=== PATIENT | female | born 1965 | race Caucasian/White ===

== ENCOUNTER 2019-08-12 07:14 | Outpatient (RCR) | payer MEDICARE, MEDICAID, SELFPAY | END 2019-09-04 23:59 | disposition home or self-care (01) | LOC: PULRHB 07:14 | PROVIDERS: Family Provider Nurse Practitioner Family; PCP Nurse Practitioner Family; Visit Provider Internal Medicine Cardiovascular Disease | DX: J84.10 Pulmonary fibrosis, unspecified (principal) ==

== ENCOUNTER 2019-08-17 13:00 | Outpatient (CLI) | payer MEDICARE, MEDICAID, SELFPAY | END 2019-08-17 13:01 | disposition home or self-care (01) | LOC: RHEOACUTE 08-31 14:58 | PROVIDERS: Family Provider Nurse Practitioner Family; PCP Nurse Practitioner Family; Visit Provider Internal Medicine Rheumatology | DX: M05.79 Rheumatoid arthritis with rheumatoid factor of multiple sites without organ or systems involvement (principal) | CPT/HCPCS: 96365; J3262 ==

== ENCOUNTER 2019-08-17 17:21 | Outpatient (CLI) | payer MEDICARE, MEDICAID, SELFPAY | END 2019-08-17 17:22 | disposition home or self-care (01) | LOC: RHEOACUTE 17:22 | PROVIDERS: Family Provider Nurse Practitioner Family; PCP Nurse Practitioner Family; Visit Provider Internal Medicine Rheumatology | DX: Z76.89 Persons encountering health services in other specified circumstances (principal) | CPT/HCPCS: J3262 ==

== ENCOUNTER → 2019-09-16 11:15 | Outpatient (BNVA) | payer MEDICARE, MEDICAID, SELFPAY | PROVIDERS: Visit Provider Nurse Practitioner Family | DX: I10 Essential (primary) hypertension (principal); L57.0 Actinic keratosis; B07.9 Viral wart, unspecified; E78.5 Hyperlipidemia, unspecified; E03.9 Hypothyroidism, unspecified | CPT/HCPCS: 80053; 80061; 84443; 85025 ==

== ENCOUNTER 2019-09-17 12:57 | Outpatient (CLI) | payer MEDICARE, MEDICAID, SELFPAY ==
[2019-09-17 13:44] VITALS: BP 110/60; PULSE 70; RESP 20; TEMP 36.7; O2SAT 91
[2019-09-17 14:55] VITALS: BP 129/75; PULSE 73; RESP 20; TEMP 36.6; O2SAT 91
== END 2019-09-17 12:58 | disposition home or self-care (01) ==
LOC: RHEOACUTE 12:59
PROVIDERS: PCP Nurse Practitioner Family; Visit Provider Internal Medicine Rheumatology
DX: M05.9 Rheumatoid arthritis with rheumatoid factor, unspecified (principal); J84.10 Pulmonary fibrosis, unspecified; J43.9 Emphysema, unspecified; I27.20 Pulmonary hypertension, unspecified; Z79.899 Other long term (current) drug therapy; Z87.891 Personal history of nicotine dependence; M79.7 Fibromyalgia; Z79.52 Long term (current) use of systemic steroids
CPT/HCPCS: 36415; 86140; 96365; 99214; J3262

== ENCOUNTER 2019-10-06 09:30 | Outpatient (CLI) | payer MEDICARE, MEDICAID, SELFPAY | END 2019-10-06 09:31 | disposition home or self-care (01) | LOC: US 09:32 | PROVIDERS: Family Provider Nurse Practitioner Family; PCP Nurse Practitioner Family; Visit Provider Internal Medicine Cardiovascular Disease | DX: I27.20 Pulmonary hypertension, unspecified (principal) | CPT/HCPCS: Q9956 ==

== ENCOUNTER 2019-10-14 14:39 | Outpatient (CLI) | payer MEDICARE, MEDICAID, SELFPAY ==
--- NOTE | 2019-10-14 14:57 | PFTS_ITS ---
Date of Study:10/14/2019 Date of Dictation: MECHANICS: Forced vital capacity (FVC) is normal. Forced expiratory volume in one second (FEV1) is reduced. FEV1/FVC is reduced. FLOW VOLUME LOOP: Reduced flow at all lung volumes with significant scooping. LUNG VOLUMES: Total lung capacity and residual volume are not measured. DIFFUSING CAPACITY FOR CARBON MONOXIDE: severely reduced. INTERPRETATION: The pulmonary function tests are consistent with moderate obstruction. Gas exchange (DLCO) is severely reduced. This degree of reduction is not consistent with the degree of airway obstruction. This is not been corrected for the patient's hemoglobin. In the appropriate setting consider pulmonary hypertension. MTDD
== END 2019-10-14 14:40 | disposition home or self-care (01) ==
LOC: RT 14:40
PROVIDERS: Family Provider Nurse Practitioner Family; PCP Nurse Practitioner Family; Visit Provider Internal Medicine Critical Care Medicine
DX: J44.9 Chronic obstructive pulmonary disease, unspecified (principal); F17.210 Nicotine dependence, cigarettes, uncomplicated
CPT/HCPCS: 94010; 94729

== ENCOUNTER 2019-10-20 08:56 | Outpatient (CLI) | payer MEDICARE, MEDICAID, SELFPAY ==
[2019-10-20 09:05] VITALS: BP 139/85; PULSE 71; RESP 20; TEMP 36.6; O2SAT 97
[2019-10-20 10:45] VITALS: BP 155/84; PULSE 76; RESP 18; TEMP 36.4; O2SAT 94
== END 2019-10-20 08:57 | disposition home or self-care (01) ==
LOC: RHEOACUTE 08:57
PROVIDERS: Family Provider Nurse Practitioner Family; PCP Nurse Practitioner Family; Visit Provider Internal Medicine Rheumatology
DX: M05.79 Rheumatoid arthritis with rheumatoid factor of multiple sites without organ or systems involvement (principal)
CPT/HCPCS: 96365; J3262

== ENCOUNTER 2019-11-17 09:02 | Outpatient (CLI) | payer MEDICARE, MEDICAID, SELFPAY ==
[2019-11-17 09:10] VITALS: BP 144/80; PULSE 79; RESP 20; TEMP 36.8; O2SAT 94
[2019-11-17] MEDS: acetaminophen 325 mg Tablet 975 MG PO (09:32)
[2019-11-17] MEDS: diphenhydrAMINE 25 mg Capsule PO (09:32)
[2019-11-17 10:49] VITALS: BP 121/70; PULSE 82; RESP 20; TEMP 36.7
== END 2019-11-17 09:03 | disposition home or self-care (01) ==
LOC: RHEOACUTE 09:03
PROVIDERS: Family Provider Nurse Practitioner Family; PCP Nurse Practitioner Family; Visit Provider Internal Medicine Rheumatology
DX: M05.79 Rheumatoid arthritis with rheumatoid factor of multiple sites without organ or systems involvement (principal)
CPT/HCPCS: 96365; J3262

== ENCOUNTER 2019-12-15 09:29 | Outpatient (CLI) | payer MEDICARE, MEDICAID, SELFPAY ==
[2019-12-15 10:00] VITALS: BP 123/76; PULSE 78; RESP 16; TEMP 36.4; O2SAT 98
[2019-12-15] MEDS: acetaminophen 325 mg Tablet 975 MG PO (10:47)
[2019-12-15] MEDS: diphenhydrAMINE 25 mg Capsule PO (10:47)
[2019-12-15 12:20] VITALS: BP 103/74; PULSE 74; RESP 16; TEMP 36.6; O2SAT 95
== END 2019-12-15 09:30 | disposition home or self-care (01) ==
LOC: RHEOACUTE 09:30
PROVIDERS: Family Provider Nurse Practitioner Family; PCP Family Medicine; Visit Provider Internal Medicine Rheumatology
DX: M05.79 Rheumatoid arthritis with rheumatoid factor of multiple sites without organ or systems involvement (principal)
CPT/HCPCS: 96365; J3262

== ENCOUNTER 2020-01-21 10:59 | Outpatient (CLI) | payer MEDICARE, MEDICAID, SELFPAY ==
[2020-01-21 11:25] VITALS: BP 121/85; PULSE 68; RESP 18; TEMP 36.4; O2SAT 94
[2020-01-21] MEDS: diphenhydrAMINE 25 mg Capsule PO (12:11)
[2020-01-21] MEDS: acetaminophen 325 mg Tablet 975 MG PO (12:11)
[2020-01-21 13:40] VITALS: BP 144/87; PULSE 66; RESP 18; O2SAT 94
== END 2020-01-21 11:00 | disposition home or self-care (01) ==
LOC: RHEOACUTE 11:00
PROVIDERS: PCP Family Medicine; Visit Provider Internal Medicine Rheumatology
DX: Z79.899 Other long term (current) drug therapy (principal); M05.79 Rheumatoid arthritis with rheumatoid factor of multiple sites without organ or systems involvement
CPT/HCPCS: 36415; 80076; 82565; 85025; 85651; 86140; 96365; 96374; J2920; J3262

== ENCOUNTER 2020-02-18 10:54 | Outpatient (CLI) | payer MEDICARE, MEDICAID, SELFPAY ==
[2020-02-18 11:11] VITALS: BP 143/89; PULSE 91; RESP 20; TEMP 36.7; O2SAT 91
[2020-02-18] MEDS: diphenhydrAMINE 25 mg Capsule PO (11:18)
[2020-02-18] MEDS: acetaminophen 325 mg Tablet 975 MG PO (11:18)
[2020-02-18 13:18] VITALS: BP 142/96; PULSE 64; RESP 18; O2SAT 96
== END 2020-02-18 10:55 | disposition home or self-care (01) ==
LOC: RHEOACUTE 10:54
PROVIDERS: PCP Family Medicine; Visit Provider Internal Medicine Rheumatology
DX: M05.79 Rheumatoid arthritis with rheumatoid factor of multiple sites without organ or systems involvement (principal)
CPT/HCPCS: 96365; 96374; J2920; J3262

== ENCOUNTER 2020-03-22 10:26 | Outpatient (CLI) | payer MEDICARE, MEDICAID, SELFPAY ==
[2020-03-22 10:10] VITALS: BP 121/81; PULSE 89; RESP 16; TEMP 36.8; O2SAT 92
[2020-03-22] MEDS: diphenhydrAMINE 25 mg Capsule PO (11:00)
[2020-03-22] MEDS: acetaminophen 325 mg Tablet 975 MG PO (11:00)
--- NOTE | 2020-03-22 11:42 | PC.NURSE ---
Noted rash and ulcers to hands and arms. Pt states has gotten worse over last 2 months. pt concerned it is the dose change of Actemra. Discussed with Dr. Quispe. Dr. Quispe states ok to do 4mg/kg for infusion today.
[2020-03-22 12:22] VITALS: BP 137/87; PULSE 72; RESP 16; TEMP 36.6; O2SAT 94
--- NOTE | 2020-03-22 12:22 | PC.NURSE ---
Reviewed Home med list. Copy given to pt.
== END 2020-03-22 10:27 | disposition home or self-care (01) ==
LOC: RHEOACUTE 10:27
PROVIDERS: PCP Family Medicine; Visit Provider Internal Medicine Rheumatology
DX: M05.79 Rheumatoid arthritis with rheumatoid factor of multiple sites without organ or systems involvement (principal)
CPT/HCPCS: 96365; 96375; J2920; J3262

== ENCOUNTER → 2020-04-12 11:17 | Outpatient (BNVA) | payer MEDICARE, MEDICAID, SELFPAY | PROVIDERS: PCP Family Medicine; Visit Provider Internal Medicine Rheumatology | DX: M05.79 Rheumatoid arthritis with rheumatoid factor of multiple sites without organ or systems involvement (principal); Z79.899 Other long term (current) drug therapy; J84.10 Pulmonary fibrosis, unspecified; J96.11 Chronic respiratory failure with hypoxia; H10.32 Unspecified acute conjunctivitis, left eye; J43.9 Emphysema, unspecified; Z87.891 Personal history of nicotine dependence; M19.90 Unspecified osteoarthritis, unspecified site; M79.7 Fibromyalgia; Z79.52 Long term (current) use of systemic steroids | CPT/HCPCS: 99214 ==

== ENCOUNTER 2020-04-19 09:58 | Outpatient (CLI) | payer MEDICARE, MEDICAID, SELFPAY ==
[2020-04-19 10:09] VITALS: BP 127/86; PULSE 87; RESP 18; TEMP 36.8; O2SAT 92
[2020-04-19] MEDS: acetaminophen 325 mg Tablet 975 MG PO (10:30)
[2020-04-19] MEDS: diphenhydrAMINE 25 mg Capsule PO (10:30)
--- NOTE | 2020-04-19 11:06 | PC.NURSE ---
1005 Pt states she does not want 8mg/kg of Actemra but does not want the lower dose like last infusion. Discussed with Dr. Quispe. RBVO Dr. Quispe for 6mg/kg of Actemra for this infusion. Discussed with pharmacist.
--- NOTE | 2020-04-19 11:10 | PC.NURSE ---
1030 Pt request labs drawn post infusion. States she's on fluid restriction and it would be easier to obtain after infusion.
[2020-04-19 13:01] VITALS: BP 114/74; PULSE 74; RESP 18; O2SAT 92
--- NOTE | 2020-04-19 13:01 | PC.NURSE ---
Unable to draw labs from IV. Pt requested to come back for lab draw and that we contact PCP for Lab orders as well.
== END 2020-04-19 09:59 | disposition home or self-care (01) ==
LOC: RHEOACUTE 09:59
PROVIDERS: PCP Family Medicine; Visit Provider Internal Medicine Rheumatology
DX: M05.79 Rheumatoid arthritis with rheumatoid factor of multiple sites without organ or systems involvement (principal); Z79.899 Other long term (current) drug therapy
CPT/HCPCS: 80076; 82565; 85025; 85651; 86140; 96365; 96375; J2920; J3262

== ENCOUNTER → 2020-04-21 14:55 | Outpatient (BNVA) | payer MEDICARE, MEDICAID, SELFPAY | PROVIDERS: PCP Family Medicine; Visit Provider Internal Medicine Rheumatology | DX: Z79.899 Other long term (current) drug therapy (principal); E03.9 Hypothyroidism, unspecified | CPT/HCPCS: 36415; 80076; 82565; 84443; 85025; 85651; 86140 ==

== ENCOUNTER → 2020-06-29 10:28 | Outpatient (BNVA) | payer MEDICARE, MEDICAID, SELFPAY | PROVIDERS: PCP Family Medicine; Visit Provider Family Medicine | DX: E03.9 Hypothyroidism, unspecified (principal) | CPT/HCPCS: 84443 ==

== ENCOUNTER → 2020-08-10 13:07 | Outpatient (BNVA) | payer MEDICARE, MEDICAID, SELFPAY | PROVIDERS: PCP Family Medicine; Visit Provider Internal Medicine Rheumatology | DX: Z79.899 Other long term (current) drug therapy (principal) | CPT/HCPCS: 36415; 80076; 82565; 85025; 85651; 86140 ==

== ENCOUNTER 2020-08-23 12:56 | Outpatient (RCR) | payer MEDICARE, MEDICAID, SELFPAY | END 2020-09-04 23:59 | disposition home or self-care (01) | LOC: PULRHB 12:56 | PROVIDERS: PCP Family Medicine; Visit Provider Internal Medicine Critical Care Medicine | DX: J96.10 Chronic respiratory failure, unspecified whether with hypoxia or hypercapnia (principal); Z79.899 Other long term (current) drug therapy | CPT/HCPCS: 84443; 94618 ==

== ENCOUNTER 2020-09-01 08:50 | Outpatient (CLI) | payer MEDICARE, MEDICAID, SELFPAY ==
--- NOTE | 2020-09-01 09:15 | CT_ITS ---
WS: [id number] CT CHEST , noncontrast high resolution. HISTORY: Evaluation for interstitial lung disease. TECHNIQUE: High-resolution imaging submitted. Supine and prone, inspiration and expiration imaging. C oronal and sagittal reformats are submitted. All CT scans at [facility] use at least one of these dose optimization techniques: automated exposure control; mA and/or kV adjustment per patien t size (includes targeted exams where dose is matched to clinical indication); or iterative reconstru ction. CONTRAST: None DLP: 1779.09 mGycm COMPARISON: 07/13/2019 Severe emphysema. Bullous emphysema with marked enlargement of the bulla in the upper lung philippe. Ve ry similar to the prior study. There are no suspicious pulmonary nodules or masses. Benign granuloma periphery of the LEFT upper lobe. At the lung bases there is crowding of the lung markings which is i n part due to the hyperexpansion and bullous disease. Mild interstitial and reticular thickening at t he lung bases. Very early mild honeycombing at the RIGHT lung base. Mild haziness and groundglass att enuation in the lower lung philippe. No definite air trapping on expiration or prone imaging. No endobr onchial lesions identified. No traction bronchiectasis. No pleural or pericardial effusions. Heart size remains normal. Enlarged pulmonary artery. Very mild atherosclerosis thoracic aorta. No mediastinal or hilar adenopathy. There is a small hiatal hernia ne gative adrenal glands. Visualized upper abdominal structures are negative. Osseous structures: No destructive process. CT/CT chest wo con [id number] IMPRESSION: 1. Severe chronic bullous emphysema. 2. Stable interstitial pulmonary fibrosis is noted. No progression of honeycom beltran and no traction bronchiectasis. 3. Pulmonary hypertension. 4. No pneumonia.
== END 2020-09-01 08:51 | disposition home or self-care (01) ==
LOC: RADWPI 08:52
PROVIDERS: PCP Family Medicine; Visit Provider Internal Medicine Critical Care Medicine
DX: J84.9 Interstitial pulmonary disease, unspecified (principal); I27.20 Pulmonary hypertension, unspecified; J43.9 Emphysema, unspecified
CPT/HCPCS: 71250

== ENCOUNTER 2020-09-05 06:00 | Outpatient (RCR) | payer MEDICARE, MEDICAID, SELFPAY | END 2020-10-02 23:59 | disposition home or self-care (01) | LOC: PULRHB 06:00 | PROVIDERS: PCP Family Medicine; Visit Provider Internal Medicine Critical Care Medicine | DX: J96.10 Chronic respiratory failure, unspecified whether with hypoxia or hypercapnia (principal) | CPT/HCPCS: G0237; G0238 ==

== ENCOUNTER 2020-10-03 06:00 | Outpatient (RCR) | payer MEDICARE, MEDICAID, SELFPAY | END 2020-11-02 23:59 | disposition home or self-care (01) | LOC: PULRHB 06:00 | PROVIDERS: PCP Family Medicine; Visit Provider Internal Medicine Critical Care Medicine | DX: J96.10 Chronic respiratory failure, unspecified whether with hypoxia or hypercapnia (principal) | CPT/HCPCS: G0237; G0238; G0239 ==

== ENCOUNTER 2020-11-03 06:00 | Outpatient (RCR) | payer MEDICARE, MEDICAID, SELFPAY | END 2020-12-02 23:59 | disposition home or self-care (01) | LOC: PULRHB 06:00 | PROVIDERS: PCP Family Medicine; Visit Provider Internal Medicine Critical Care Medicine | DX: J96.10 Chronic respiratory failure, unspecified whether with hypoxia or hypercapnia (principal) | CPT/HCPCS: G0237; G0238; G0239 ==

== ENCOUNTER → 2020-11-14 10:35 | Outpatient (BNVA) | payer MEDICARE, MEDICAID, SELFPAY | PROVIDERS: PCP Family Medicine; Visit Provider Family Medicine | DX: M05.79 Rheumatoid arthritis with rheumatoid factor of multiple sites without organ or systems involvement (principal); Z79.899 Other long term (current) drug therapy | CPT/HCPCS: 82565; 85025; 86140 ==

== ENCOUNTER → 2020-11-16 13:58 | Outpatient (BNVA) | payer MEDICARE, MEDICAID, SELFPAY | PROVIDERS: PCP Family Medicine; Visit Provider Internal Medicine Rheumatology | DX: M05.9 Rheumatoid arthritis with rheumatoid factor, unspecified (principal); I27.20 Pulmonary hypertension, unspecified; I50.9 Heart failure, unspecified; J84.10 Pulmonary fibrosis, unspecified; J44.9 Chronic obstructive pulmonary disease, unspecified; R91.1 Solitary pulmonary nodule; Z79.899 Other long term (current) drug therapy; Z79.52 Long term (current) use of systemic steroids; M79.7 Fibromyalgia; Z87.891 Personal history of nicotine dependence | CPT/HCPCS: 99214 ==

== ENCOUNTER 2020-12-03 06:00 | Outpatient (RCR) | payer MEDICARE, MEDICAID, SELFPAY | END 2021-01-02 23:59 | disposition home or self-care (01) | LOC: PULRHB 06:00 | PROVIDERS: PCP Family Medicine; Visit Provider Internal Medicine Critical Care Medicine | DX: J96.10 Chronic respiratory failure, unspecified whether with hypoxia or hypercapnia (principal) | CPT/HCPCS: G0237; G0238; G0239 ==

== ENCOUNTER 2021-01-03 06:00 | Outpatient (RCR) | payer MEDICARE, MEDICAID, SELFPAY | END 2021-02-01 23:59 | disposition home or self-care (01) | LOC: PULRHB 06:00 | PROVIDERS: PCP Family Medicine; Visit Provider Internal Medicine Critical Care Medicine | DX: J96.10 Chronic respiratory failure, unspecified whether with hypoxia or hypercapnia (principal) | CPT/HCPCS: 94618; G0237; G0238; G0239 ==

== ENCOUNTER → 2021-02-23 13:37 | Outpatient (BNVA) | payer MEDICARE, MEDICAID, SELFPAY | PROVIDERS: PCP Family Medicine; Visit Provider Family Medicine | DX: E03.9 Hypothyroidism, unspecified (principal) | CPT/HCPCS: 84443 ==

== ENCOUNTER → 2021-03-01 13:18 | Outpatient (BNVA) | payer MEDICARE, MEDICAID, SELFPAY | PROVIDERS: PCP Family Medicine; Visit Provider Internal Medicine Rheumatology | DX: M05.9 Rheumatoid arthritis with rheumatoid factor, unspecified (principal); M15.9 Polyosteoarthritis, unspecified; Z79.899 Other long term (current) drug therapy; M79.7 Fibromyalgia; J84.10 Pulmonary fibrosis, unspecified; I27.20 Pulmonary hypertension, unspecified; I50.9 Heart failure, unspecified; J44.9 Chronic obstructive pulmonary disease, unspecified; Z99.81 Dependence on supplemental oxygen; Z85.41 Personal history of malignant neoplasm of cervix uteri; Z71.89 Other specified counseling; Z87.891 Personal history of nicotine dependence | CPT/HCPCS: 99214 ==

== ENCOUNTER 2021-04-05 06:00 | Outpatient (RCR) | payer MEDICARE, MEDICAID, SELFPAY | END 2021-05-04 23:59 | disposition home or self-care (01) | LOC: PULRHB 06:00 | PROVIDERS: PCP Family Medicine; Visit Provider Internal Medicine Critical Care Medicine | DX: M05.9 Rheumatoid arthritis with rheumatoid factor, unspecified (principal); Z79.899 Other long term (current) drug therapy; E03.9 Hypothyroidism, unspecified | CPT/HCPCS: 36415; 80076; 82565; 84439; 84443; 85025; 86140 ==

== ENCOUNTER → 2021-07-04 10:51 | Outpatient (BNVA) | payer MEDICARE, MEDICAID, SELFPAY | PROVIDERS: PCP Family Medicine; Visit Provider Family Medicine | DX: M19.90 Unspecified osteoarthritis, unspecified site (principal); M05.79 Rheumatoid arthritis with rheumatoid factor of multiple sites without organ or systems involvement; Z79.899 Other long term (current) drug therapy | CPT/HCPCS: 80076; 82565; 84439; 84443; 85025; 86140 ==

== ENCOUNTER → 2021-08-16 13:37 | Outpatient (BNVA) | payer MEDICARE, MEDICAID, SELFPAY | PROVIDERS: PCP Family Medicine; Visit Provider Internal Medicine Rheumatology | DX: M05.79 Rheumatoid arthritis with rheumatoid factor of multiple sites without organ or systems involvement (principal); Z79.899 Other long term (current) drug therapy; J84.10 Pulmonary fibrosis, unspecified; J43.9 Emphysema, unspecified; I27.20 Pulmonary hypertension, unspecified; Z87.891 Personal history of nicotine dependence; M05.9 Rheumatoid arthritis with rheumatoid factor, unspecified | CPT/HCPCS: 99214 ==

== ENCOUNTER → 2021-09-01 14:21 | Outpatient (BNVA) | payer MEDICARE, MEDICAID, SELFPAY | PROVIDERS: PCP Family Medicine; Visit Provider Internal Medicine Rheumatology | DX: M05.9 Rheumatoid arthritis with rheumatoid factor, unspecified (principal); Z79.899 Other long term (current) drug therapy | CPT/HCPCS: 80076; 82565; 85025; 86140 ==

== ENCOUNTER → 2021-10-17 13:36 | Outpatient (BNVA) | payer MEDICARE, MEDICAID, SELFPAY | PROVIDERS: PCP Family Medicine; Visit Provider Family Medicine | DX: E03.9 Hypothyroidism, unspecified (principal); L30.9 Dermatitis, unspecified | CPT/HCPCS: 84439; 84443 ==

== ENCOUNTER → 2022-01-10 15:02 | Outpatient (BNVA) | payer MEDICARE, MEDICAID, SELFPAY | PROVIDERS: PCP Family Medicine; Visit Provider Internal Medicine Rheumatology | DX: M05.79 Rheumatoid arthritis with rheumatoid factor of multiple sites without organ or systems involvement (principal); J84.10 Pulmonary fibrosis, unspecified; M15.9 Polyosteoarthritis, unspecified; M79.7 Fibromyalgia; J44.9 Chronic obstructive pulmonary disease, unspecified; Z79.899 Other long term (current) drug therapy; I25.2 Old myocardial infarction; Z85.41 Personal history of malignant neoplasm of cervix uteri; I50.9 Heart failure, unspecified; Z71.89 Other specified counseling | CPT/HCPCS: 80076; 82565; 85025; 86140; 99214 ==

== ENCOUNTER → 2022-02-23 09:32 | Outpatient (BNVA) | payer MEDICARE, MEDICAID, SELFPAY | PROVIDERS: PCP Family Medicine; Visit Provider Internal Medicine Critical Care Medicine | DX: J43.9 Emphysema, unspecified (principal); J96.11 Chronic respiratory failure with hypoxia; I27.20 Pulmonary hypertension, unspecified; J30.9 Allergic rhinitis, unspecified; Z99.81 Dependence on supplemental oxygen; Z87.891 Personal history of nicotine dependence | CPT/HCPCS: 99214 ==

== ENCOUNTER 2022-03-16 06:07 | Outpatient (CLI) | payer MEDICARE, MEDICAID, SELFPAY ==
[2022-03-16] VITALS (9 sets, daily range): BP systolic 112–145; BP diastolic 73–93; PULSE 79–95; RESP 14–22; O2SAT 82–97; BMI 33.3
--- NOTE | 2022-03-16 06:00 | XACV_ITS ---
Exam Room: 2 Ht: 165 cm Wt: 91 kg BSA: 2.07 m2 Gender: Female : 1965 Any Known Allergies: Other Exam Priority: Routine Procedure(s): Procedure Description: Diagnostic procedure Procedure Description: Right Heart Catheterization Diagnostic Cath Status: Elective Diagnostic Findings * Right heart cath findings: RA pressure: 7/7/6mmhg PCW: 8/9/7mmhg PA pressure: 71/27/43mmhg RV pressure: 62/1/5mmhg TP PA saturation: 76%(on 4 L oxygen) Ao sat: 99%(on 4 L oxygen) Cardiac output: 6.7L/min Cardiac index: 3.3 L/min/m2 PVR : 5.3 wood units . * INDICATION: Pulmonary hypertension. Conclusions 1. Severe pre-capillary pulmonary hypertension. 2. Normal cardiac output and cardiac index (on 4 L O2) by Rfancy. Recommendations * Outpatient pulmonology follow up for further recommendations. Interventional RX Recommendation: medical therapy and/or counseling Diagnostic RX Recommendation: medical therapy and/or counseling Pressures Phase:Rest RV : 62 / -7 / 5 @ 9:08:00 AM PA : 71 / 27 ( 43 ) @ 9:07:00 AM RA : a wave = 7 v wave = 7 mean = 6 @ 9:09:00 AM PCW : a wave = 8 v wave = 9 mean = 7 @ 9:06:00 AM O2 Content Phase:Rest PA : O2 Content O2: 76.2 @ 9:06:00 AM Saturations Phase:Rest AO : 99 @ 9:07:00 AM PA : 76 @ 9:06:00 AM Cardiac Output Phase:Rest Francy : 5 @ 8:19:36 AM Francy Cardiac Index: 3 @ 8:19:36 AM Flow Phase:Rest Qp : 5 @ 8:19:36 AM Qs : 5 @ 8:19:36 AM Clinical Evaluation EBL: 5mL-10mL Procedural Details Procedure Consent Obtained. Admit Source: Out Patient. Pre-Procedure Time Out. Identified patient by full name and date of as verbalized by the patient/guarantor. Does the consent match the physician's order: Yes. Accurate & Complete Informed Consent: Yes. Inpatient/Outpatient History & Physical on Chart: Yes. If H&P is completed, is and addenduem needed: Yes; If yes, is the addendum complete: Yes. Visualize and Verify Site with Patient/Guarantor: N/A. Relevant Radiology Images available: N/A. Pre-op teaching completed and patient verbalized understanding. The risks, benefits, and alternatives of sedation and/or procedure were discussed by physician. The patient agrees to continue. Procedure started. 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 Correct patient, site and procedure confirmed by cath team. PERRLA. Strong, equal hand creative engagement director bilaterally. Lungs clear x 5 lobes. IV Site on Arrival: 22 gauge in the left anticubital. IV Fluids: 0.9% NaCl at KVO. 0 mL infused prior to mine laborer. Pre Procedural Pulses: right radial was 3+. Oxygen started at 4liters/min via nasal canula. right brachial was prepped with chloroprep then draped in the usual sterile fashion. right groin was prepped with chloroprep then draped in the usual sterile fashion. Baseline sample Acquired. HR: 90 BPM. Physician notified. Physician arrived. Physician scrubbed in. Lidocaine 1% infiltrated to the right brachial. Immediate Pre-Procedure Time Out. Correct Patient: Yes; Correct Procedure: Yes; Correct Site: Yes; Correct Patient Position: Yes; Correct Supplies: Yes; Dried Flammable Prep: Yes; Blood Products Available: N/A;. [place] wire inserted into [place] Mon. Note- AO sat measurement was used as SPO2 99% on patient baseline home oxygen requirements of 4LPM. [place] out. [place] MON catheter inserted. Physician scrubbed out. Pressure measurements obtained. ABG drawn and sent with respiratory therapy. A Manual Compression was successful obtaining hemostatsis at the Right Brachial Vein insertion site. Post Procedure: Pulses reassessed and unchanged. PERRLA. Strong, equal hand creative engagement director bilaterally. No VTE prophylaxis required. Medication's Wasted: Other = versed 1 mg. Medication's Wasted: Heparin = 1000 unit. Total IV fluids: 0 mL. Post-op diagnosis: Severe pulmonary Htn. Complications: None. Estimated blood loss: 5mL-10mL. Responsiveness - Normal response to verbal stimuli; alert and oriented, PERRLA. Airway - Unaffected, no intervention required; spontaneous ventilation. Circulation: W/N/L, pulses unchanged. Nausea/Vomiting: N/A. Procedure completed. Patient transferred by wheelchair to CPRU. Vital chart was stopped. Access Site Site: Right Brachial Vein Sheath Size: 6 Fr Hemostasis Method: Manual Compression Hemostasis Success: Successful Procedure Medications Start: 8:02 AM Stop: 8:02 AM Medication: Versed Amount: 1 mg Route: I.V. I, the attending physician, have reviewed and verified all procedure medications. Yes, all medications given per verbal order History/Risk Factors Hypertension: No Dyslipidemia: Yes Peripheral Arterial Disease (PAD): No Myocardial Infarction (IA): No Obesity: Yes Renal Disease: No Tobacco Use: Former Prior Interventions PCI: No CABG: No Valve Surgery: No Report Signatures Finalized by Marcelino Morales MD on 03/25/2022 11:57 AM
[2022-03-16 07:17] LABS: Basophils % 0.4 %; Eosinophils % 0.4 %; Hematocrit 41.1 % (37.0-47.0); Hemoglobin 12.4 g/dL (11.5-15.3); Lymphocytes # 0.8 10^3/uL (0.8-4.8); Lymphocytes % 27.3 %; Mean Corpuscular HGB Conc 30.2 g/dL (30.0-36.0); Mean Corpuscular Hemoglobin 29.7 pg (28.0-34.0); Mean Corpuscular Volume 98.3 fl (81-99); Mean Platelet Volume 10.1 fL (7.4-10.4); Monocytes # 0.3 10^3/uL (0.2-0.9); Monocytes % 11.7 %; Neutrophils # 1.66 10^3/uL (1.8-7.7); Neutrophils % 58.8 %; Nucleated Red Blood Cells % 0 %; Platelet Count 225 10^3/cmm (130-400); Red Blood Count 4.18 10^6/uL (4.1-5.3); Red Cell Distribution Width 14.4 % (12.1-15.1); White Blood Count 2.8 10^3/uL (4.0-10.0)
[2022-03-16 07:27] LABS: Blood Urea Nitrogen 25 mg/dL (6-20); Calcium 9.1 mg/dL (8.5-10.5); Carbon Dioxide 23 mmol/L (22-29); Chloride 106 mmol/L (98-107); Glomerular Filtration Rate 56.9 mL/min (90-130); Glucose 92 mg/dL (65-115); Osmolality Calculated 296 mOsm/kg (285-295); Sodium 141 mmol/L (136-145)
--- NOTE | 2022-03-16 07:58 | W.PM.OPSUD ---
Surgery/Procedure H&P Update DATE OF PROCEDURE: March 16, 2022 DATE H&P PERFORMED: 02/23/22 H&P UPDATE INFORMATION: I have reviewed H&P completed within last 30 days, I have examined patient prior to procedure and No changes to prior documentation PREOP DIAGNOSIS: Pulmonary hypertension PRIMARY INDICATION FOR PROCEDURE: Pulmonary hypertension PLANNED PROCEDURE: Operation Date: 03/16/22 07:00 Proposed Procedures p Right heart cath 83060,I27.20(Right) - Marcelino Morales M.D PATIENT REASSESSED PRIOR TO SEDATION, WITH NO CHANGE NOTED: Yes PHYSICAL EXAM: alert, oriented x 3, clear to auscultation bilaterally and regular rate & rhythm AIRWAY EVAL/ANESTHESIA PLAN: ASA IV, Local Anesthesia, Risks, benefits & alternatives of sedation and/or procedure discussed and Patient agrees to continue as planned ADDITIONAL INFORMATION: Moderate sedation
[2022-03-16 08:13] LABS: ABG PCO2 46.6 mmHg (35-45); ABG PH Result 7.36 (7.35-7.45); Arterial Blood Gas Hematocrit 38.8 % (37-47); Base Excess ABG 0.3 mmol/L (-2.0-2.0); Blood Gas Allen Test Pos; Blood Gas Sample Type Arterial; HCO3 ABG 26.2 mmol/L (22-26); PO2 ABG 40.9 mmHg (80.0-100.0)
--- NOTE | 2022-03-16 10:46 | PC.NURSE ---
Around 1030: Discharge orders received. Right brachial site clean, dry, dressing intact. No hematoma. Vitals stabe. IVs removed. Discharge education provided to patient over site care and reportable signs and symptoms. Patient verbalized understanding of all teaching.
== END 2022-03-16 10:52 | disposition home or self-care (01) ==
PROVIDERS: Internal Medicine; PCP Family Medicine; Visit Provider Internal Medicine Critical Care Medicine
DX: I27.20 Pulmonary hypertension, unspecified (principal); E78.5 Hyperlipidemia, unspecified; E66.9 Obesity, unspecified; Z68.33 Body mass index [BMI] 33.0-33.9, adult; Z87.891 Personal history of nicotine dependence; J44.9 Chronic obstructive pulmonary disease, unspecified; M06.9 Rheumatoid arthritis, unspecified; G47.33 Obstructive sleep apnea (adult) (pediatric); Z85.41 Personal history of malignant neoplasm of cervix uteri; N18.9 Chronic kidney disease, unspecified; J96.11 Chronic respiratory failure with hypoxia; J30.9 Allergic rhinitis, unspecified
CPT/HCPCS: 36415; 36600; 80048; 82803; 85025; 93451; 96360; 99152; C1751; C1769; C1894; J1644; J2250; J7030

== ENCOUNTER 2022-04-30 17:41 | Emergency (ER) | payer MEDICARE, MEDICAID, SELFPAY ==
[2022-04-30 18:02] VITALS: BP 154/100; PULSE 90; RESP 22; TEMP 36.8; O2SAT 90; BMI 32.1
--- NOTE | 2022-04-30 18:15 | XRR_ITS ---
PROCEDURE INFORMATION: Exam: XR Chest Exam date and time: 04/30/2022 6:23 PM Age: 56 years old Clinical indication: Shortness of breath; Additional info: Dyspnea TECHNIQUE: Imaging protocol: Radiologic exam of the chest. Views: 1 view. COMPARISON: CT chest [facility] [id number] 09/01/2020 9:00 AM FINDINGS: Lungs: The lung bases are suboptimally assessed due to technique however the upper lungs are clear of focal consolidation however there are increasing ill-defined bilateral basilar opacities which may represent atelectasis/crowding versus developing pneumonia. Follow-up should be obtained. Calcified granuloma lateral left upper lobe.. Pleural spaces: Unremarkable. No pleural effusion. No pneumothorax. Heart/Mediastinum: Cardiac silhouette appears normal in size. No obvious vascular congestion. Bones/joints: No acute osseous findings. Other findings: Single view was submitted. XR/XR chest 1V portable [id number] IMPRESSION: Increasing bilateral basilar opacities. Follow-up should be obtained..
--- NOTE | 2022-04-30 18:15 | ECG_ITS ---
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 Measurements Intervals [place] Rate: 88 P: 45 [place]: 124 QRS: -19 QRSD: 96 T: -16 QT: 362 QTc: 439 Interpretive Statements SINUS RHYTHM POSSIBLE LEFT ATRIAL ENLARGEMENT [-0.1mV P-WAVE IN V1/V2] LOW QRS VOLTAGE IN PRECORDIAL LEADS [QRS DEFLECTION < 1.0 mV IN CHEST LEADS] INCOMPLETE RIGHT BUNDLE BRANCH BLOCK [90+ ms QRS DURATION, TERMINAL R IN V1/V2, 40+ ms S IN I/aVL/V4/V5/V6] POSSIBLE ANTERIOR MYOCARDIAL INFARCTION , OF INDETERMINATE AGE [30 ms Q WAVE IN V3/V4, OR R < 0.2 mV IN V4] Compared to ECG 08/22/2018 13:19:33 Incomplete right bundle-branch block now present Myocardial infarct finding now present Short [place] interval no longer present Indeterminate axis no longer present Electronically Signed On 05-01-2022 0:16:36 CDT by Jairon Thrasher M.D. [id number]
--- NOTE | 2022-04-30 18:18 | W.ED.GENADLT ---
HPI - General Adult General: Chief complaint: Shortness of Breath/Dyspnea Stated complaint: SOB, heart pt Time Seen by Provider: 04/30/22 18:14 History of Present Illness: Patient is a 56-year-old female with history of being 4 L oxygen, CHF, COPD presenting to the emergency room with complaints of chest pain shortness of breath. Patient tells me that earlier this afternoon when she was taking a nap around 4:00 she woke up with shortness of breath. Patient was not sure whether her oxygen concentrator has been working. In addition, patient has had 3 episodes of chest pressure throughout the day since 7 AM this morning. Most recent episode was prior to her sleeping around 4 PM. Patient denies any pleuritic chest pain, sharp chest pain or nausea/vomiting, diaphoresis, chest pain with radiation to the back, leg swelling, fever/chills, cough, runny nose sore throat, abdominal complaints, complaints at this time. Onset:today Duration:ongoing Location:home Severity:moderate Associated symptoms: Reports chest pain and dyspnea; Deny nausea, rash, palpitations or vomiting Review of Systems Const: Denies: fever(s) or chills Eyes: Denies: change in vision ENMT: Denies: mouth pain Card: Reports: chest pain; Denies: palpitations Resp: Reports: dyspnea; Denies: non-productive cough GI: Denies: abdominal pain, nausea, vomiting or diarrhea : Denies: dysuria Musc: Denies: extremity pain Skin/Breast: Denies: rash or new lesions Neuro: Denies: weakness in extremities Psych: Reports: other (Normal mood) Brendon/Lymph: Denies: easy bruising PFS ED PFSH: Medical History Adenocarcinoma of cervix CHF (congestive heart failure) May use lasix 20 mg when needed for leg swelling. -f/u in 2-3 months. COPD (chronic obstructive pulmonary disease) High risk medication use Immunization counseling Pulmonary fibrosis Pulmonary hypertension Seropositive rheumatoid arthritis Seropositive rheumatoid arthritis of multiple sites Surgical History H/O emergency section Family History Mother Cancer Lung disease Chronic kidney disease (CKD) Family/Other Cancer Grandfather Cancer Other Rheumatoid arthritis Denies family history of Systemic lupus erythematosus (SLE) in adult Social History Smoking and tobacco status: former smoker Quit status (tobacco): has quit using tobacco Year quit tobacco: 2013 - 1PPD x 40 Years Second hand smoke exposure: No Alcohol intake: never Lives independently: Yes Household members: none Marital status: / Current occupational status: employed and disabled History of recent travel: No Current gender identity: Female Physical Exam Const: COMMON NORMALS: alert HENMT: COMMON NORMALS: atraumatic HEAD & SCALP: atraumatic MOUTH: moist mucous membranes not abnormal Eye: COMMON NORMALS: EOMs intact bilaterally and conjunctivae normal CONJUNCTIVA: Yes conjunctivae normal Neck/C-Spine: COMMON NORMALS: full ROM and supple Resp: COMMON NORMALS: normal respiratory effort OTHER: +mild expiratory wheezes b/l Cardio: COMMON NORMALS: regular rate RATE: regular rate OTHER: 2+ radial pulses b/l GI: COMMON NORMALS: Soft to palpation and non-tender PALPATION: Yes Soft to palpation OTHER: No focal TTP. NO guarding rebound, guarding, rigidity. No CVA tenderness to percussion. Neg Meek/Neg McBurney's point tenderness, no suprabupic tenderness to palpation. Extremity: COMMON NORMALS: full ROM NARRATIVE EXTREMITY EXAM: No jeff sign b/l Neuro: SENSORIUM/ORIENTATION: Yes alert MOTOR EXAM: No Abnormal motor strength present and Other motor observations present (no focal motor deficits) Psych: COMMON NORMALS: speech normal SPEECH: Yes normal speech MOOD & AFFECT: Yes euthymic mood Course Vital Signs: Vital signs: Vital Signs Temperature 98.2 F 04/30/22 18:02 Pulse Rate 74 04/30/22 21:00 Respiratory Rate 18 04/30/22 21:00 Blood Pressure 152/93 04/30/22 21:00 Pulse Oximetry 96 04/30/22 21:00 Oxygen Delivery Me thod 04/30/22 20:30 Oxygen Flow Rate 4 04/30/22 20:30 MDM - General Adult Medical Decision Making Patient is a 56-year-old female with history of being 4 L oxygen, CHF, COPD presenting to the emergency room with complaints of chest pain shortness of breath. Was found to have minor expiratory wheezes. Presented greater than 95% on room air. Today, patient is noted to be neutropenic with a white count of 1.7. Patient has a troponin with delta of greater than 5. EKG showed multiple T wave inversion in the lateral leads. I have Concerns that this may be ACS or unstable angina. However at 9:50 PM, patient elects to go home. Patient electing to leave AMA. Patient counseled regarding risks of leaving including severe morbidity, brain , heart artack arrythmia, , chest pain, or any other unwanted consequences of leaving against medical advice today. Patient verbalizes understanding of the risks and still wishes to leave AMA. Signed AMA paperwork. Patient advised that patient is welcome to return at any time. Was instructed that patient may come back if symptoms continue to persist and that emergent adverse conditions have not fully been ruled out. Patient is A&Ox3 and has capacity and is of sound mind to make decisions. Because patient's elects to go home, presented the alternative we have been the patient follow-up closely with Cardiology. Patient agrees to do so. I have given patient follow up with our case planner to be seen by our outpatient Cardiology for troponin elevation. Patient aware of a call from our case planner to schedule for appointment(s) and verbalizes understanding of the importance of following up. Disposition: AMA Lab Data : 04/30/22 18:35 04/30/22 18:35 Radiology Impressions Chest X-Ray 04/30/22 18:15 IMPRESSION: Increasing bilateral basilar opacities. Follow-up should be obtained.. Chest CTA 04/30/22 19:13 IMPRESSION: 1. No acute PE. Minimal dilatation of main pulmonary artery. 2. Severe bullous pulmonary emphysema with mild/early fibrotic changes in the lung bases with some interval progression of basilar fibrotic changes. No acute lung findings otherwise. 3. Small hiatal hernia. Laboratory Results WBC 1.7 10^3/uL (4.0-10.0) L 04/30/22 18:35 RBC 4.65 10^6/uL (4.1-5.3) 04/30/22 18:35 Hgb 13.9 g/dL (11.5-15.3) 04/30/22 18:35 Hct 43.4 % (37.0-47.0) 04/30/22 18:35 MCV 93.3 fl (81-99) 04/30/22 18:35 MCH 29.9 pg (28.0-34.0) 04/30/22 18:35 MCHC 32.0 g/dL (30.0-36.0) 04/30/22 18:35 RDW 14.0 % (12.1-15.1) 04/30/22 18:35 Plt Count 187 10^3/cmm (130-400) 04/30/22 18:35 MPV 9.9 fL (7.4-10.4) 04/30/22 18:35 Neut % (Auto) 47.2 % 04/30/22 18:35 Lymph % (Auto) 36.2 % 04/30/22 18:35 [place] % (Auto) 14.9 % 04/30/22 18:35 Eos % (Auto) 0.6 % 04/30/22 18:35 Baso % (Auto) 0.0 % 04/30/22 18:35 Neut # (Auto) 0.82 10^3/uL (1.8-7.7) L* 04/30/22 18:35 Lymph # (Auto) 0.6 10^3/uL (0.8-4.8) L 04/30/22 18:35 [place] # (Auto) 0.3 10^3/uL (0.2-0.9) 04/30/22 18:35 Eos # (Auto) 0.0 10^3/uL (0.0-0.8) 04/30/22 18:35 Baso # (Auto) 0.0 10^3/uL (0.0-0.1) 04/30/22 18:35 Nucleated RBC % (auto) 0 % 04/30/22 18:35 Nucleated RBCs # 0.0 /100WBC 04/30/22 18:35 D-Dimer 3.16 ug/mIFEU (0-0.59) H 04/30/22 18:35 Sodium 139 mmol/L (136-145) 04/30/22 18:35 Potassium 4.0 mmol/L (3.5-5.1) 04/30/22 18:35 Chloride 102 mmol/L (98-107) 04/30/22 18:35 Carbon Dioxide 26 mmol/L (22-29) 04/30/22 18:35 Anion Gap 15.0 (5-19) 04/30/22 18:35 BUN 23 mg/dL (6-20) H 04/30/22 18:35 Creatinine 1.0 mg/dL (0.5-0.9) H 04/30/22 18:35 GFR Calculation 56.9 mL/min (90-130) L 04/30/22 18:35 Glucose 92 mg/dL (65-115) 04/30/22 18:35 Calculated Osmolality 291 mOsm/kg (285-295) 04/30/22 18:35 Calcium 9.5 mg/dL (8.5-10.5) 04/30/22 18:35 Troponin T Baseline 66 ng/L (0-10) H 04/30/22 18:35 Troponin T 120 Minute 79.53 ng/L (0-10) H 04/30/22 20:20 Delta Troponin T 13.53 ABS# (0-10) H* 04/30/22 20:20 NT-Pro-B Natriuret Pep 273 pg/mL (0-125) H 04/30/22 18:35 Imaging Data Other Imaging: Radiologist's impression: [address] [address] XRay Report Signed Patient: Chayito Small Unit #: [id number] : 1965 Age/Sex: 56 / F ADM Date: 04/30/22 Loc: ER Room/Bed: Attending Dr: Ordering Provider/Ordering MD: John Lynne MD Date of Service: 04/30/22 Procedure(s): XR chest 1V portable [id number] Accession Number(s): [id number] Report Number: [id number] PROCEDURE INFORMATION: Exam: XR Chest Exam date and time: 04/30/2022 6:23 PM Age: 56 years old Clinical indication: Shortness of breath; Additional info: Dyspnea TECHNIQUE: Imaging protocol: Radiologic exam of the chest. Views: 1 view. COMPARISON: CT chest con [id number] 09/01/2020 9:00 AM FINDINGS: Lungs: The lung bases are suboptimally assessed due to technique however the upper lungs are clear of focal consolidation however there are increasing ill-defined bilateral basilar opacities which may represent atelectasis/crowding versus developing pneumonia. Follow-up should be obtained. Calcified granuloma lateral left upper lobe.. Pleural spaces: Unremarkable. No pleural effusion. No pneumothorax. Heart/Mediastinum: Cardiac silhouette appears normal in size. No obvious vascular congestion. Bones/joints: No acute osseous findings. Other findings: Single view was submitted. XR/XR chest 1V portable [id number] IMPRESSION: Increasing bilateral basilar opacities. Follow-up should be obtained.. ? Dictated By: Parker Rice MD Signed By: Parker Rice MD Signed Date/Time: 04/30/22 2097 Discharge Plan Discharge Patient Disposition: Left Against Medical Advice Clinical Impression: Dyspnea, Chest pain Condition: Stable Prescriptions: No Action Zyrtec 10 mg capsule 10 mg PO DAILY cholecalciferol (vitamin D3) 50 mcg (2,000 unit) tablet 2,000 unit PO DAILY Stress B With Zinc Tablet PO potassium citrate 99 mg capsule PO sildenafil (pulm.hypertension) 20 mg tablet 20 mg PO TID 90 Days Qty: 270 6RF furosemide [Lasix] 20 mg tablet 20 mg PO DAILY PRN (Reason: Lower extremity edema) 90 Days Qty: 90 1RF potassium chloride 10 mEq capsule, extended release 10 meq PO DAILY PRN (Reason: Diuretic therapy) 90 Days Qty: 90 0RF Rx Instructions: Please take on days when you take Lasix. triamcinolone acetonide 0.1 % cream 1 applic topical BID Qty: 30 0RF multivitamin Tablet 1 tab PO DAILY hydroxychloroquine 200 mg tablet See Rx Instructions .ROUTE .COMPLEX Qty: 60 3RF Dose Instruction: TAKE 1 TABLET BY MOUTH TWO TIMES DAILY Rx Instructions: TAKE 1 TABLET BY MOUTH TWO TIMES DAILY prednisone 1 mg tablet See Rx Instructions .ROUTE .COMPLEX Qty: 60 3RF Dose Instruction: TAKE 2 TABLETS BY MOUTH EVERY DAY Rx Instructions: TAKE 2 TABLETS BY MOUTH EVERY DAY Rinvoq 15 mg tablet extended release 24 hr See Rx Instructions .ROUTE .COMPLEX Qty: 30 3RF Dose Instruction: TAKE 1 TABLET BY MOUTH EVERY DAY Rx Instructions: TAKE 1 TABLET BY MOUTH EVERY DAY (DME) nebulizer accessories Kit See Rx Instructions .ROUTE .MEDSUPPLY Qty: 2 0RF Rx Instructions: As directed olopatadine 0.2 % drops See Rx Instructions .ROUTE .COMPLEX Qty: 2.5 2RF Dose Instruction: INSTILL 1 DROP IN BOTH EYES EVERY DAY Rx Instructions: INSTILL 1 DROP IN BOTH EYES EVERY DAY albuterol sulfate [Ventolin HFA] 90 mcg/actuation HFA aerosol inhaler 2 puff INHALATION Q6H PRN (Reason: shortness of breath or wheezing) Qty: 8.5 5RF albuterol sulfate 2.5 mg /3 mL (0.083 %) solution for nebulization See Rx Instructions .ROUTE .COMPLEX Qty: 180 1RF Dose Instruction: USE 1 VIAL IN NEBULIZER EVERY 4 HOURS NEEDED FOR SHORTNESS OF BREATH OR WHEEZING Rx Instructions: USE 1 VIAL IN NEBULIZER EVERY 4 HOURS NEEDED FOR SHORTNESS OF BREATH OR WHEEZING levothyroxine 175 mcg tablet See Rx Instructions .ROUTE .COMPLEX Qty: 90 1RF Dose Instruction: TAKE 1 TABLET BY MOUTH EVERY DAY Rx Instructions: TAKE 1 TABLET BY MOUTH EVERY DAY Trelegy Ellipta 100-62.5-25 mcg blister with device 1 inh INHALATION Q24H Qty: 60 3RF Referrals: Italia Perez DO [Primary Care Provider] - Patient Instructions: Opioid Safety, Pain Management Coding Level of Care Code ED Sales Engagement Manager for Chg Fwd Exam Comprehensive
[2022-04-30 18:43] LABS: Eosinophils % 0.6 %; Hematocrit 43.4 % (37.0-47.0); Hemoglobin 13.9 g/dL (11.5-15.3); Lymphocytes # 0.6 10^3/uL (0.8-4.8); Lymphocytes % 36.2 %; Mean Corpuscular Hemoglobin 29.9 pg (28.0-34.0); Mean Corpuscular Volume 93.3 fl (81-99); Mean Platelet Volume 9.9 fL (7.4-10.4); Monocytes # 0.3 10^3/uL (0.2-0.9); Monocytes % 14.9 %; Neutrophils % 47.2 %; Nucleated Red Blood Cells % 0 %; Platelet Count 187 10^3/cmm (130-400); Red Blood Count 4.65 10^6/uL (4.1-5.3); White Blood Count 1.7 10^3/uL (4.0-10.0)
[2022-04-30 18:46] VITALS: BP 136/97; PULSE 86; O2SAT 97
[2022-04-30 18:49] LABS: Neutrophils # 0.82 10^3/uL (1.8-7.7)
[2022-04-30 19:04] LABS: D Dimer 3.16 ug/mIFEU (0-0.59)
[2022-04-30 19:06] LABS: Troponin(5th) Baseline 66 ng/L (0-10)
[2022-04-30 19:09] VITALS: BP 127/94; PULSE 83; RESP 22; O2SAT 95
--- NOTE | 2022-04-30 19:13 | CTR_ITS ---
PROCEDURE INFORMATION: Exam: CTA Chest With Contrast Exam date and time: 04/30/2022 7:51 PM Age: 56 years old Clinical indication: Other: Opacities TECHNIQUE: Imaging protocol: Computed tomographic angiography of the chest with contrast. 3D rendering (Not supervised by radiologist): MIP and/or 3D reconstructed images were created by the technologist. Radiation optimization: All CT scans at this facility use at least one of these dose optimization techniques: automated exposure control; mA and/or kV adjustment per patient size (includes targeted exams where dose is matched to clinical indication); or iterative reconstruction. Contrast material: OMNI 350; Contrast volume: 80 ml; Contrast route: INTRAVENOUS (IV); COMPARISON: CT angio chest PE protcl [id number] 05/15/2017 7:57 PM RADIATION DOSE METRICS: Total DLP (mGy-cm): 395.34 FINDINGS: Pulmonary arteries: Minimal dilatation of main pulmonary artery at 3.2 cm. Aorta: No aortic aneurysm. No aortic dissection. Lungs: Severe bullous emphysema bilaterally with upper lobe predominance. Mild/early fibrotic changes are present in the lung bases. No obvious lung consolidation or ground-glass opacity. Calcified granuloma lateral left mid lung. Pleural spaces: Unremarkable. No pneumothorax. No pleural effusion. Heart: Mild cardiomegaly with no obvious vascular congestion. No obvious coronary calcification however assessment is limited due to non gated technique. Lymph nodes: Unremarkable. No enlarged lymph nodes. Diaphragm: Small hiatal hernia. Bones/joints: No acute fracture. Soft tissues: Unremarkable. CT/CT angio chest PE protcl [id number] IMPRESSION: 1. No acute PE. Minimal dilatation of main pulmonary artery. 2. Severe bullous pulmonary emphysema with mild/early fibrotic changes in the lung bases with some interval progression of basilar fibrotic changes. No acute lung findings otherwise. 3. Small hiatal hernia.
[2022-04-30 19:14] LABS: Blood Urea Nitrogen 23 mg/dL (6-20); Calcium 9.5 mg/dL (8.5-10.5); Carbon Dioxide 26 mmol/L (22-29); Chloride 102 mmol/L (98-107); Glomerular Filtration Rate 56.9 mL/min (90-130); Glucose 92 mg/dL (65-115); NT Pro B Type Natriuretic Pept 273 pg/mL (0-125); Osmolality Calculated 291 mOsm/kg (285-295); Sodium 139 mmol/L (136-145)
--- NOTE | 2022-04-30 19:15 | PC.NURSE ---
Received report. Patient presented with sob and low O2 sat at home. She is normally on 4L at home and she checked her sats and they were in the 50%. Increased O2 to 6L and sats up to 70's. She increased it to 8L and sats up to 90's. As long as she's not exerting she can maintain on 4L in the 90's.
[2022-04-30] MEDS: iohexol 350 mg/mL 100 mL Btl IV (19:47)
--- NOTE | 2022-04-30 20:00 | PC.NURSE ---
Patient ambulated to bathroom on 4L O2 and when returned to the room O2 sat in 70's. Increased O2 to 8L for approx 3 mins and sat back up to 95%. Decreased back to 4L. Sats maintained
--- NOTE | 2022-04-30 20:15 | ECG_ITS ---
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 Measurements Intervals [place] Rate: 72 P: 60 IN: 142 QRS: 2 QRSD: 94 T: -17 QT: 377 QTc: 414 Interpretive Statements SINUS RHYTHM POSSIBLE LEFT ATRIAL ENLARGEMENT LOW QRS VOLTAGE IN PRECORDIAL LEADS INCOMPLETE RIGHT BUNDLE BRANCH BLOCK POSSIBLE ANTERIOR MYOCARDIAL INFARCTION , OF INDETERMINATE AGE Compared to ECG 04/30/2022 18:42:15 No significant changes Electronically Signed On 05-01-2022 12:23:03 CDT by Harmony Montoya M.D. [id number]
[2022-04-30 20:30] VITALS: BP 140/87; PULSE 87; RESP 20; O2SAT 96
[2022-04-30 20:39] LABS: Troponin 5 2HR 79.53 ng/L (0-10)
[2022-04-30 21:00] VITALS: BP 152/93; PULSE 74; RESP 18; O2SAT 96
[2022-04-30 21:38] LABS: Troponin 5 2HR Delta 13.53 ABS# (0-10)
--- NOTE | 2022-04-30 22:15 | PC.NURSE ---
patient was offered admission and strongly suggested due to increase in her troponin. Patient was explained the risk involved in signing out AMA. Risk were explained including up to . She still requested to sign out AMA. The paperwork was provided to the patient.
[2022-05-01 01:42] VITALS: BP 169/98; PULSE 74; RESP 20; O2SAT 95
--- NOTE | 2022-05-01 12:38 | DCPLANNER ---
Addendum entered by Bree De La Torre 05/01/22 14:49: ehs manager received the following message from the [facility] regarding follow up appointment: Spoke with patient. Pt will call when ready to make appt. Thank you! Original Note: ehs manager had message to schedule a follow up appointment for patient with cardiology. ehs manager sent patients information to the front office staff at [facility]. Patients information will be printed and reviewed. Clinic will call patient with appointment information.
== END 2022-04-30 22:30 | disposition left against medical advice (07) ==
PROVIDERS: Emergency Provider Emergency Medicine; PCP Family Medicine
DX: R07.9 Chest pain, unspecified (principal); R06.00 Dyspnea, unspecified; Z53.21 Procedure and treatment not carried out due to patient leaving prior to being seen by health care provider; Z87.891 Personal history of nicotine dependence; I50.9 Heart failure, unspecified; J44.9 Chronic obstructive pulmonary disease, unspecified
CPT/HCPCS: 71045; 71275; 80048; 83880; 84484; 85025; 85378; 93005; 96374; 99285; J2930; Q9967

== ENCOUNTER 2022-05-08 13:08 | Inpatient (IN) | payer MEDICARE, MEDICAID, SELFPAY ==
[2022-05-08] VITALS (12 sets, daily range): BP systolic 144–161; BP diastolic 102–117; PULSE 88–125; RESP 12–28; TEMP 36.4–36.5; O2SAT 85–97; BMI 31.1
--- NOTE | 2022-05-08 13:16 | XRR_ITS ---
PROCEDURE INFORMATION: Exam: XR Chest Exam date and time: 05/08/2022 1:27 PM Age: 56 years old Clinical indication: Cough and dyspnea; Patient HX: History--cough dyspnea positive covid; Additional info: Dyspnea/cough TECHNIQUE: Imaging protocol: Radiologic exam of the chest. Views: 1 view. COMPARISON: CR (CHEST, ) 04/30/2022 6:23 PM FINDINGS: Lungs: Patchy bibasilar pulmonary infiltrates are present which have increased since previous examination. The upper lung zones are clear. Pleural spaces: Unremarkable. No pleural effusion. No pneumothorax. Heart/Mediastinum: Unremarkable. No cardiomegaly. Bones/joints: Unremarkable. XR/XR chest 1V portable [id number] IMPRESSION: Worsening bibasilar infiltrates consistent with pneumonia.
--- NOTE | 2022-05-08 13:25 | ECG_ITS ---
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 Measurements Intervals [place] Rate: 114 P: 54 FL: 116 QRS: -10 QRSD: 84 T: 4 QT: 289 QTc: 398 Interpretive Statements SINUS TACHYCARDIA WITH SHORT FL INTERVAL ABNORMAL RHYTHM ECG Compared to ECG 04/30/2022 20:22:15 Short FL interval now present Sinus rhythm no longer present Incomplete right bundle-branch block no longer present Myocardial infarct finding no longer present Electronically Signed On 05-08-2022 13:52:35 CDT by Harmony Montoya M.D. [id number]
[2022-05-08 13:27] LABS: Basophils % 0.4 %; Eosinophils % 0.1 %; Hematocrit 43.6 % (37.0-47.0); Hemoglobin 14.2 g/dL (11.5-15.3); Lymphocytes # 0.4 10^3/uL (0.8-4.8); Lymphocytes % 4.4 %; Mean Corpuscular HGB Conc 32.6 g/dL (30.0-36.0); Mean Corpuscular Hemoglobin 29.8 pg (28.0-34.0); Mean Corpuscular Volume 91.4 fl (81-99); Mean Platelet Volume 11.2 fL (7.4-10.4); Monocytes # 0.6 10^3/uL (0.2-0.9); Neutrophils # 7.85 10^3/uL (1.8-7.7); Nucleated Red Blood Cells # 0.1 /100WBC; Nucleated Red Blood Cells % 0.5 %; Platelet Count 316 10^3/cmm (130-400); Red Blood Count 4.77 10^6/uL (4.1-5.3); Red Cell Distribution Width 14.3 % (12.1-15.1); White Blood Count 9.2 10^3/uL (4.0-10.0)
[2022-05-08 13:31] LABS: ABG PCO2 37.6 mmHg (35-45); ABG PH Result 7.47 (7.35-7.45); Alveolar-Arterial Oxygen Gradi 3.8 mmHg (5-10); Arterial Blood Gas Hematocrit 44.1 % (37-47); Base Excess ABG 3.7 mmol/L (-2.0-2.0); Blood Gas Allen Test Pos; Blood Gas Operator Identificat GD; Blood Gas Sample Site Radial, left; Blood Gas Sample Type Arterial; Carboxyhemoglobin 1.5 %THgb (0.4-20.1); HCO3 ABG 27.4 mmol/L (22-26); HGB O2 Sat 93.9 % (95-100); Ionized Calcium Level - ABG 1.3 mmol/L (1.1-1.4); Methemoglobin 0.7 % (0.4-1.5); Oxygen Device NRB; PO2 ABG 74.7 mmHg (80.0-100.0); Potassium Level - ABG 4.1 mmol/L (3.5-5.0); Total Hemoglobin 14.4 g/dL (12-16)
--- NOTE | 2022-05-08 13:39 | W.ED.SOB ---
HPI - SOB/Dyspnea General: Chief Complaint: Shortness of Breath/Dyspnea Stated Complaint: SOB Time Seen by Provider: 05/08/22 13:15 Source: patient and EMS Mode of arrival: EMS History of Present Illness: HPI Narrative: 48-year-old female presents emergency room complaining of shortness of breath symptoms began approximately 1 week ago. EMS states she was 70% when I first found her on 4 L. Increase her to 15 L by mask and she is satting in the upper 80s on arrival here. She states she has been getting progressively sicker over the last week initially began with some diarrhea. She is awake and alert satting in 87 to 89% on 15 L by nasal cannula on arrival she denies any chest pain. She has a history of pulmonary hypertension and congestive heart failure she had a right-sided heart cathIn March of this year. At that time documentation shows she was at 99% with oxygen supplementation Of 4 L by nasal cannula. Cath showed severe precapillary pulmonary hypertension. She is denying any chest pain or leg swelling recently she has had a moderately productive cough she just finished a course of antibiotics. She has not been previously vaccinated for COVID. She is refusing COVID swabs at this time. MD elicited complaint: shortness of breath and cough Pertinent past history: congestive heart failure and other (Pulmonary hypertension) Onset (ago): day(s) Timing: constant Exacerbating factors: nothing Relieving factors: nothing Known history of: congestive heart failure and other (Pulmonary hypertension) Associated symptoms: Reports chest congestion, cough and myalgias; Deny abdominal pain, chest pain, diaphoresis, dizziness, extremity pain, fever(s), hemoptysis, lightheadedness, nausea, orthopnea, palpitations, paresthesias, polydipsia, polyuria, rash, sense of impending doom, syncope or vomiting Treatment prior to arrival: oxygen and bronchodilator Review of Systems Const: Denies: fever(s), chills, fatigue, malaise or diaphoresis ENMT: Denies: throat pain, ear or mastoid pain, nasal discharge or nasal congestion Card: Denies: chest pain, palpitations, lightheadedness, syncope or orthopnea Resp: Reports: dyspnea, non-productive cough, wheezing and chest congestion; Denies: productive cough or hemoptysis GI: Denies: abdominal pain, nausea or vomiting : Denies: flank pain, difficulty voiding, dysuria, urinary frequency or urinary urgency Musc: Denies: neck pain, back pain or extremity pain Skin/Breast: Denies: rash or pruritus Neuro: Denies: dizziness Endo: Denies: polyuria or polydipsia PFSH ED PFSH: Medical History (Updated 05/08/22 @ 15:44 by Munir Christensen DO) Adenocarcinoma of cervix CHF (congestive heart failure) May use lasix 20 mg when needed for leg swelling. -f/u in 2-3 months. COPD (chronic obstructive pulmonary disease) High risk medication use Immunization counseling Pulmonary fibrosis Pulmonary hypertension Seropositive rheumatoid arthritis Seropositive rheumatoid arthritis of multiple sites Surgical History H/O emergency section Family History Mother Cancer Lung disease Chronic kidney disease (CKD) Family/Other Cancer Grandfather Cancer Other Rheumatoid arthritis Denies family history of Systemic lupus erythematosus (SLE) in adult Social History Smoking and tobacco status: former smoker Quit status (tobacco): has quit using tobacco Year quit tobacco: 2013 - 1PPD x 40 Years Second hand smoke exposure: No Alcohol intake: never Lives independently: Yes Household members: none Marital status: / Current occupational status: employed and disabled History of recent travel: No Current gender identity: Female Physical Exam Const: ORIENTATION/CONSCIOUSNESS: Yes awake, Yes oriented to person, Yes oriented to place and Yes oriented to time HENMT: COMMON NORMALS: normocephalic, atraumatic and hearing grossly normal bilaterally HEAD & SCALP: normocephalic and atraumatic Resp: AUSCULTATION: crackles, wheezes and diminished lung sounds Cardio: COMMON NORMALS: regular rate, regular rhythm and No murmurs present (Cardio) RATE: regular rate RHYTHM: regular rhythm GI: COMMON NORMALS: Soft to palpation and No hepatosplenomegaly present AUSCULTATION: Yes normoactive bowel sounds PALPATION: Yes Soft to palpation, No Tenderness to palpation present (GI), No Guarding due to palpation present (GI) and Yes No hepatosplenomegaly present Extremity: COMMON NORMALS: normal to inspection, capillary refill normal, no clubbing, cyanosis or edema, no calf tenderness and no pedal edema Neuro: SENSORIUM/ORIENTATION: Yes oriented to person, Yes oriented to place and Yes oriented to time Skin: COMMON NORMALS: no rashes or lesions noted GENERAL SKIN EXAM: no rashes or lesions noted Course Vital Signs: Vital signs: Vital Signs Temperature 97.5 F L 05/08/22 13:11 Pulse Rate 98 05/08/22 15:15 Respiratory Rate 18 05/08/22 15:15 Blood Pressure 144/110 05/08/22 15:15 Pulse Oximetry 97 05/08/22 15:15 Oxygen Delivery Me thod 05/08/22 15:15 Oxygen Flow Rate 20 05/08/22 13:56 Fraction of Inspir ed Oxygen 60 05/08/22 13:56 MDM - SOB/Dyspnea Medical Decision Making History and labs suspicious for COVID. This is highly concerning given her underlying pulmonary hypertension. Patient is convinced that COVID is a conspiracy theory and does not wish to have the test. She cites missy arteaga's that she is listened to that she believes are the only ones that are telling the truth about COVID and therefore she refuses the test. Advised her that completing the test could help clarify and refine her treatment which would improve our ability to help her despite this she does not want to have the test. Discussed with her specifically that this could result in her not getting treatments which could potentially improve and given her underlying pulmonary hypertension could unnecessarily increase her morbidity and mortality. She acknowledges this and still does not wish to proceed with testing. I discussed with Dr. Rivera. Admit to ICU. Medical Records I reviewed the patient's medical records. Lab Data I reviewed the patient's lab results. : 05/08/22 13:13 05/08/22 13:13 Labs/Radiology: Radiology Impressions Chest X-Ray 05/08/22 13:16 IMPRESSION: Worsening bibasilar infiltrates consistent with pneumonia. Laboratory Results WBC 9.2 10^3/uL (4.0-10.0) 05/08/22 13:13 RBC 4.77 10^6/uL (4.1-5.3) 05/08/22 13:13 Hgb 14.2 g/dL (11.5-15.3) 05/08/22 13:13 Hct 43.6 % (37.0-47.0) 05/08/22 13:13 MCV 91.4 fl (81-99) 05/08/22 13:13 MCH 29.8 pg (28.0-34.0) 05/08/22 13:13 MCHC 32.6 g/dL (30.0-36.0) 05/08/22 13:13 RDW 14.3 % (12.1-15.1) 05/08/22 13:13 Plt Count 316 10^3/cmm (130-400) 05/08/22 13:13 MPV 11.2 fL (7.4-10.4) H 05/08/22 13:13 Neut % (Auto) 85.0 % 05/08/22 13:13 Lymph % (Auto) 4.4 % 05/08/22 13:13 [place] % (Auto) 6.0 % 05/08/22 13:13 Eos % (Auto) 0.1 % 05/08/22 13:13 Baso % (Auto) 0.4 % 05/08/22 13:13 Neut # (Auto) 7.85 10^3/uL (1.8-7.7) H 05/08/22 13:13 Lymph # (Auto) 0.4 10^3/uL (0.8-4.8) L 05/08/22 13:13 [place] # (Auto) 0.6 10^3/uL (0.2-0.9) 05/08/22 13:13 Eos # (Auto) 0.0 10^3/uL (0.0-0.8) 05/08/22 13:13 Baso # (Auto) 0.0 10^3/uL (0.0-0.1) 05/08/22 13:13 Nucleated RBC % (auto) 0.5 % 05/08/22 13:13 Nucleated RBCs # 0.1 /100WBC 05/08/22 13:13 Specimen Type Arterial 05/08/22 13:15 Sample Site Radial, left 05/08/22 13:15 ABG pH 7.47 (7.35-7.45) H 05/08/22 13:15 ABG pCO2 37.6 mmHg (35-45) 05/08/22 13:15 ABG pO2 74.7 mmHg (80.0-100.0) L 05/08/22 13:15 ABG HCO3 27.4 mmol/L (22-26) H 05/08/22 13:15 ABG O2 Saturation 96.0 05/08/22 13:15 ABG Base Excess 3.7 mmol/L (-2.0-2.0) H 05/08/22 13:15 Quirino Test Pos 05/08/22 13:15 A-a O2 Gradient 3.8 mmHg (5-10) L 05/08/22 13:15 Hematocrit 44.1 % (37-47) 05/08/22 13:15 Hgb O2 Saturation 93.9 % (95-100) L 05/08/22 13:15 Carboxyhemoglobin 1.5 %THgb (0.4-20.1) 05/08/22 13:15 Methemoglobin 0.7 % (0.4-1.5) 05/08/22 13:15 Total Hemoglobin 14.4 g/dL (12-16) 05/08/22 13:15 Sodium 142.0 mmol/L (131-143) 05/08/22 13:15 Potassium 4.1 mmol/L (3.5-5.0) 05/08/22 13:15 Glucose 126.0 mg/dL (70-115) H 05/08/22 13:15 Ionized Calcium 1.3 mmol/L (1.1-1.4) 05/08/22 13:15 O2 Delivery Device Nrb 05/08/22 13:15 O2 Liters/Min 12.0 % 05/08/22 13:15 Ic Designer Custom ID Gd 05/08/22 13:15 Sodium 139 mmol/L (136-145) 05/08/22 13:13 Potassium 4.5 mmol/L (3.5-5.1) 05/08/22 13:13 Chloride 101 mmol/L (98-107) 05/08/22 13:13 Carbon Dioxide 24 mmol/L (22-29) 05/08/22 13:13 Anion Gap 18.5 (5-19) 05/08/22 13:13 BUN 27 mg/dL (6-20) H 05/08/22 13:13 Creatinine 1.0 mg/dL (0.5-0.9) H 05/08/22 13:13 GFR Calculation 56.9 mL/min (90-130) L 05/08/22 13:13 Glucose 117 mg/dL (65-115) H 05/08/22 13:13 Calculated Osmolality 294 mOsm/kg (285-295) 05/08/22 13:13 Calcium 9.4 mg/dL (8.5-10.5) 05/08/22 13:13 Total Bilirubin 0.7 mg/dL (0.15-1.2) 05/08/22 13:13 AST 24 U/L (0-32) 05/08/22 13:13 ALT 14 U/L (0-33) 05/08/22 13:13 Alkaline Phosphatase 55 U/L (35-105) 05/08/22 13:13 Troponin T Baseline 17 ng/L (0-10) H 05/08/22 13:13 NT-Pro-B Natriuret Pep 614 pg/mL (0-125) H 05/08/22 13:13 Total Protein 6.4 g/dL (6.6-8.7) L 05/08/22 13:13 Albumin 3.5 g/dL (3.5-5.2) 05/08/22 13:13 Globulin 2.9 g/dL (1.3-4.6) 05/08/22 13:13 Discharge Plan Discharge Patient Disposition: Admitted As Inpatient Admit Provider: Ralph Rivera Clinical Impression: Suspected 2019-nCoV infection, Seropositive rheumatoid arthritis, Pulmonary fibrosis, Pulmonary hypertension, Pneumonia Condition: Stable Coding Level of Care Code ED Sports Medicine Trainer for Chg Fwd Exam Detailed
[2022-05-08 13:43] LABS: Troponin(5th) Baseline 17 ng/L (0-10)
[2022-05-08 14:01] LABS: Alanine Aminotransferase 14 U/L (0-33); Albumin Level 3.5 g/dL (3.5-5.2); Alkaline Phosphatase 55 U/L (35-105); Aspartate Amino Transferase 24 U/L (0-32); Blood Urea Nitrogen 27 mg/dL (6-20); Calcium 9.4 mg/dL (8.5-10.5); Carbon Dioxide 24 mmol/L (22-29); Globulin 2.9 g/dL (1.3-4.6); Glomerular Filtration Rate 56.9 mL/min (90-130); Glucose 117 mg/dL (65-115); NT Pro B Type Natriuretic Pept 614 pg/mL (0-125); Total Bilirubin 0.7 mg/dL (0.15-1.2); Total Protein 6.4 g/dL (6.6-8.7)
[2022-05-08 14:03] LABS: Potassium 4.5 mmol/L (3.5-5.1)
[2022-05-08] MEDS: dexamethasone 10 mg/mL INJ 6 MG IVP (14:14)
[2022-05-08] MEDS: FUROsemide 10 mg/mL SDV 4mL 40 MG IVP (15:03)
[2022-05-08] MEDS: levofloxacin-dextrose 5 % 750 MG/150 ML PREMIX 100 MG IV (15:03)
--- NOTE | 2022-05-08 15:11 | P.HP_ITS ---
Providers/Chief Complaint Admitting Physician: Ralph Rivera MD Primary Care Provider: Italia Perez DO Chief Complaint: SOB History of Present Illness Chayito Small is a 56 year old female who follows up with Dr. Coreas for her pulmonary fibrosis, uses 5 L of oxygen on exertion at home, she lives alone, presented to the hospital for worsening of shortness of breath. Symptom started roughly 10 days ago, she gradually started experiencing more shortness of breath at rest, initially give her on exertion, her inhalers were not enough to relieve her symptoms, she has not noticed any fever however endorsing diarrhea generalized weakness and fatigue. She is very resistance against COVID vaccination and would not allow us to test her for COVID in the ER however she was later agreeable. She is also seeing beater room supervisor for her rheumatoid arthritis her beater room supervisor held Rinvoq because of leukopenia in the past and started prednisone 2 mg every day along hydroxychloroquine Review of records reveal she has pulmonary hypertension, rheumatoid arthritis, chronic kidney disease chronic hypoxic respite failure and sleep apnea, her cervical cancer is in remission, her oxygen requirement at home fluctuates between 5 to 8 L, EF 60% grade 1 diastolic function, currently patient is on sildenafil for her pulmonary hypertension right heart cath revealed large pressu re of 15 pulmonary arterial pressure 59, she does not have enough social support for lung transplant which was recommended by Dr. Coreas , she does take trilogy on daily basis Her recent CTA chest revealed no PE severe bullous pulmonary emphysematous changes with early fibrotic changes lung bases and small hiatal hernia today chest x-ray has changes consistent with bilateral infiltrates consistent with pneumonia And requesting COVID PCR started on diuresis and antipseudomonal coverage Review of Systems Const: Reports: chills and body aches; Denies: fever(s) Eyes: Denies: change in vision ENMT: Denies: throat pain Card: Reports: dyspnea on exertion; Denies: chest pain Resp: Reports: dyspnea GI: Reports: diarrhea; Denies: abdominal pain : Denies: flank pain Musc: Denies: neck pain Skin/Breast: Denies: rash Neuro: Denies: headache(s) Psych: Reports: anxiety Endo: Denies: polyuria [place]/Lymph: Denies: easy bruising All/Imm: Denies: urticaria Medications/Allergies Home Medications Medication Instructions Recorded Confirmed Last Taken Type cetirizine 10 mg capsule (Zyrtec) 10 mg PO DAILY 10/29/19 05/08/22 05/08/22 History nebulizer accessories #2 ea 01/14/20 05/08/22 Unknown Rx multivitamin 1 tab PO DAILY 12/26/20 05/08/22 05/08/22 History multivit,stress formula-zinc 1 tab PO DAILY 02/21/21 05/08/22 05/08/22 History tablet (Stress B With Zinc tablet) cholecalciferol (vitamin D3) 50 2,000 unit PO DAILY 08/21/21 05/08/22 05/08/22 History mcg (2,000 unit) tablet olopatadine 0.2 % eye drops See Rx Instructions .Route 08/21/21 05/08/22 Unknown Rx .COMPLEX #2.5 mL albuterol sulfate 90 mcg/actuation 2 puff inhalation Q6H PRN 10/17/21 05/08/22 Unknown Rx aerosol inhaler (Ventolin HFA) shortness of breath or wheezing #8.5 grams triamcinolone acetonide 0.1 % 1 applic topical BID #30 grams 10/17/21 05/08/22 03/15/22 20:00 Rx topical cream albuterol sulfate 2.5 mg/3 mL See Rx Instructions .Route 02/12/22 05/08/22 Unknown Rx (0.083 %) solution for nebulization .COMPLEX #180 mL furosemide 20 mg tablet (Lasix) 20 mg PO DAILY PRN Lower extremity 02/23/22 05/08/22 Unknown Rx edema 90 days #90 tabs potassium chloride 10 mEq 10 meq PO DAILY PRN Diuretic 02/23/22 05/08/22 Unknown Rx capsule,extended release therapy 90 days #90 caps sildenafil (pulm.hypertension) 20 20 mg PO TID 90 days #270 tabs 02/23/22 05/08/22 05/08/22 Rx mg tablet fluticasone fur. 100 mcg-umeclid 1 inh inhalation Q24H #60 ea 05/01/22 05/08/22 05/08/22 Rx 62.5 mcg-vilant 25 mcg inhalat.powder (Trelegy Ellipta) prednisone 1 mg tablet See Rx Instructions .Route 05/01/22 05/08/22 05/08/22 Rx .COMPLEX #60 tabs prednisone 10 mg tablet See Rx Instructions PO .COMPLEX 05/01/22 05/08/22 05/08/22 Rx PRN joint pain #30 tabs amoxicillin 875 mg-potassium 1 tab PO BID #20 tabs 05/04/22 05/08/22 05/08/22 Rx clavulanate 125 mg tablet azithromycin 250 mg tablet See Rx Instructions PO .COMPLEX #6 05/04/22 05/08/22 05/08/22 Rx (Zithromax Z-Deandre) tabs levothyroxine 175 mcg tablet 175 mcg PO DAILY 05/08/22 05/08/22 05/08/22 History Allergies Allergy/AdvReac Type Severity Reaction Status Date / Time cephalexin Allergy ADR-Nausea Verified 05/04/22 08:42 oxycodone [From Percodan] Allergy ADR-Halluci Verified 05/04/22 08:42 nating PFSH Acute PFSH: Medical History (Updated 05/08/22 @ 16:53 by Ralph Rivera MD) Adenocarcinoma of cervix CHF (congestive heart failure) May use lasix 20 mg when needed for leg swelling. -f/u in 2-3 months. COPD (chronic obstructive pulmonary disease) High risk medication use Immunization counseling Pulmonary fibrosis Pulmonary hypertension Seropositive rheumatoid arthritis Seropositive rheumatoid arthritis of multiple sites Surgical History H/O emergency section Family History Mother Cancer Lung disease Chronic kidney disease (CKD) Family/Other Cancer Grandfather Cancer Other Rheumatoid arthritis Denies family history of Systemic lupus erythematosus (SLE) in adult Social History Smoking and tobacco status: former smoker Quit status (tobacco): has quit using tobacco Year quit tobacco: 2012 - 1PPD x 40 Years Second hand smoke exposure: No Alcohol intake: never Lives independently: Yes Household members: none Marital status: / Current occupational status: employed and disabled History of recent travel: No Current gender identity: Female Vitals/I&O/Wt Last Vital Signs Temp 97.5 F L 05/08/22 13:11 Pulse 101 H 05/08/22 13:56 Resp 22 H 05/08/22 13:56 BP 158/102 05/08/22 13:11 Pulse Ox 92 05/08/22 13:56 O2 Del Method 05/08/22 13:11 O2 Flow Rate 20 05/08/22 13:56 FiO2 60 05/08/22 13:56 Weight last 48 hrs Weight 84.822 kg Physical Exam Narrative: Patient is on 15 L nonrebreather mask when I enter the room saturating 95% She wanted to use bedside commode Clinically she looks euvolemic Bilateral breath sounds without active wheezing or crackles diminished breath sounds at the bases S1, S2 Sinus tachycardia Hypertensive EOMI, PERRLA Nonfocal neuro exam Awake and alert Agreeable for COVID swab Data : 05/08/22 13:13 05/08/22 13:13 A&P Assessment and plan (1) Suspected 2019-nCoV infection: (2) Pneumonia: (3) Pulmonary fibrosis: (4) Acquired hypothyroidism: (5) Pulmonary hypertension: (6) Acute and chronic respiratory failure with hypoxia: Plan Acute on chronic hypoxia Underlying severe COPD, pulmonary hypertension and pulmonary fibrosis High risk for intubation She will require vasopressors if there is indication for intubation because of severe pulmonary hypertension Rule out COVID-19 Concern for community-acquired pneumonia I will start her on double antipseudomonal coverage Currently she is on 15 L nonrebreather mask She is agreeable for heated high flow and BiPAP if needed She has severe pulmonary hypertension which seems to be getting worse with chronic hypoxia She was recommended lung transplant with Dr. Coreas She lives alone does not have enough social support for her lung transplant She is afebrile Endorsing weakness and diarrhea She was given Augmentin, rule out C. difficile She is in isolation for now requested COVID PCR she is agreeable Her BNP is high which could be related to worsening of pulmonary hypertension, recently CTA chest ruled out PE Continue DuoNeb treatment along steroids Continue sildenafil Chronic grade 1 diastolic dysfunction Currently does not look fluid overloaded BNP is high which could be related to pulm hypertension I will diurese her along antibiotics Chest x-ray did not show crackles or wheezing I do see pulm effusion to mild extent, Rheumatoid arthritis No acute flare She does take steroids on chronic basis Currently have started on methylprednisolone 40 mg IV every 12 hours Secondary to steroid-induced hyperglycemia I would use sliding scale Continue levothyroxine She is full code I will put her on mechanical soft diet for now DVT prophylaxis covered with heparin Attestations Medical Necessity Statement*: Anticipating more than 2 midnight Time Spent in Patient Care: 50 Coding Level of Care Code Acute Rail Transit Operator for Chg Fwd Diagnoses Suspected 2019-nCoV infection Z20.822 Pneumonia J18.9 Pulmonary fibrosis J84.10 Acquired hypothyroidism E03.9 Pulmonary hypertension I27.20 Acute and chronic respiratory failure with hypoxia J96.21
--- NOTE | 2022-05-08 15:15 | ECG_ITS ---
[facility] Test Date: 2022-05-08 Pat Name: Chayito Small Department: Room: [facility]06 Gender: Female Surgery Scheduler: : 1965 Requested By: Munir Butt Order Number: [id number] Teddy MD: Harmony Montoya M.D. Measurements Intervals [place] Rate: 127 P: 49 SC: 125 QRS: 8 QRSD: 92 T: 38 QT: 286 QTc: 417 Interpretive Statements SINUS TACHYCARDIA ABNORMAL RHYTHM ECG Compared to ECG 05/08/2022 13:25:17 Short SC interval no longer present Electronically Signed On 05-08-2022 20:35:13 CDT by Harmony Montoya M.D. [id number]
[2022-05-08 16:04] LABS: D Dimer 2.72 ug/mIFEU (0-0.59)
[2022-05-08 16:20] LABS: Troponin 5 2HR 14.33 ng/L (0-10)
[2022-05-08 16:30] LABS: Troponin 5 2HR Delta -2.67 ABS# (0-10)
--- NOTE | 2022-05-08 16:30 | PC.NURSE ---
To Unit Pt brought to unit by ED staff. Pt moved from gurney to bed. Pt changed into gown and placed on bedside monitoring. Pt on 15L non rebreather. Pt has IVs to bilateral AC. Pt is alert and oriented. Pt oriented to room wt call light within reach.
[2022-05-08 16:42] LABS: Procalcitonin 0.05 ng/mL (0-0.5)
[2022-05-08 16:59] LABS: Thyroid Stimulating Hormone 0.13 uIU/mL (0.27-4.20)
[2022-05-08 17:08] LABS: Add Urine Microscopic? NO; Charge for UA Resulting for Rev
[2022-05-08 17:11] LABS: Anion Gap 20.5 (5-19); Chloride 102 mmol/L (98-107); Osmolality Calculated 300 mOsm/kg (285-295); Sodium 142 mmol/L (136-145)
[2022-05-08 17:20] LABS: Bilirubin Urine Neg (Negative); Blood Urine Neg (Negative); Glucose Urine UA Norm (Normal); Ketones Urine Negative (Negative); Leukocyte Esterase Urine Negative (Negative); Nitrate Urine Negative (Negative); Protein Urine Neg (Negative); Specific Gravity, Urine 1.005 (1.005-1.030); Urine Appearance Clear (CLEAR); Urine Color Yellow (Yellow); Urobilinogen Urine Norm (Negative); pH Urine 6.5 (5-7)
[2022-05-08] MEDS: heparin 5,000 unit/mL INJ 1 mL 5000 UNIT SUBCUT (17:34)
[2022-05-08] MEDS: cefepime 1,000 MG in sodium chloride 0.9% (plus) 50 ML 100 MG IV (17:35)
[2022-05-08] MEDS: piperacillin-tazobactam 3.375 GM in sodium chloride 0.9% (plus) 50 ML IV (17:37)
[2022-05-08 18:52] LABS: Adenovirus Not Detected (NOT DETECT); Chlamydia Pneumoniae Not Detected (NOT DETECT); Coronavirus 229E,HKU1,NL63,OC4 Not Detected (NOT DETECT); Human Metapneumovirus Not Detected (NOT DETECT); Human Rhinovirus/Enterovirus Not Detected (NOT DETECT); Influenza A Not Detected (NOT DETECT); Influenza A H1 Not Detected (NOT DETECT); Influenza A H1-2009 Not Detected (NOT DETECT); Influenza A H3 Not Detected (NOT DETECT); Influenza B Not Detected (NOT DETECT); Mycoplasma Pneumoniae Not Detected (NOT DETECT); Parainfluenza Virus Type 1 Not Detected (NOT DETECT); Parainfluenza Virus Type 2 Not Detected (NOT DETECT); Parainfluenza Virus Type 3 Not Detected (NOT DETECT); Parainfluenza Virus Type 4 Not Detected (NOT DETECT); Respiratory Syncytial Virus A Not Detected (NOT DETECT); Respiratory Syncytial Virus B Not Detected (NOT DETECT); SARS-COV-2 Detected (NOT DETECT)
--- NOTE | 2022-05-08 19:15 | ECG_ITS ---
[facility] Test Date: 2022-05-08 Pat Name: Chayito Small Department: Room: ICU06 Gender: Female Senior Business Intelligence Analyst: : 1965 Requested By: Munir Butt Order Number: [id number] Teddy MD: Jairon Thrasher M.D. Measurements Intervals [place] Rate: 92 P: 61 CA: 146 QRS: 2 QRSD: 92 T: 15 QT: 339 QTc: 419 Interpretive Statements SINUS RHYTHM LEFT ATRIAL ENLARGEMENT [-0.15mV P-WAVE IN V1/V2] Nonspecific T wave changes Compared to ECG 05/08/2022 15:43:56 Atrial abnormality now present Sinus tachycardia no longer present Electronically Signed On 05-09-2022 20:57:31 CDT by Jairon Thrasher M.D. [id number]
[2022-05-08 19:31] LABS: Troponin 5 6HR 13.49 ng/L (0-10)
[2022-05-08 19:36] LABS: Troponin 5 6HR Delta -3.51 ng/L (0-12)
[2022-05-08] MEDS: ipratropium-albuterol 3 mL Neb INHALATION (20:13)
[2022-05-08] MEDS: budesonide 0.5 mg/2 mL Neb INHALATION (20:13)
[2022-05-08] MEDS: famotidine 20 mg Tablet 40 MG PO (20:28)
[2022-05-08] MEDS: ALPRAZolam 0.5 mg Tablet PO (20:28)
[2022-05-08] MEDS: NON-FORMULARY MEDICATION (Sildenafil (Pulm.Hypertension) 20 mg tablet) 20 EACH PO (20:55)
--- NOTE | 2022-05-08 22:07 | PC.NURSE ---
1929 Dr. Oropeza notified of patient's consistent high diastolic BPs (current BP - 157/112); instructed to obtain manual BP and report back results 1999 Dr. Oropeza notified of patient's manual BP of 162/98; awaiting new orders 2129 Dr. Peña notified of patient's positive Covid results; awaiting new orders 2149 Dr. Peña notified of patient's continued kuldip diastolic BP (current BP - 157/113); awaiting new orders
[2022-05-08 22:08] LABS: Glucose Point of Care 140 mg/dL (70-110)
--- NOTE | 2022-05-08 22:48 | PC.NURSE ---
2199 patient refuses offered treatment for Covid; states she will only take Ivermectin [address] Peña, will treat high blood pressures based off of systolic BPs (will intervene if systolic BP is greater than 180)
[2022-05-09] VITALS (34 sets, daily range): BP systolic 90–170; BP diastolic 63–113; PULSE 73–139; RESP 12–37; TEMP 36.1–36.6; O2SAT 87–97
[2022-05-09] MEDS: piperacillin-tazobactam 3.375 GM in sodium chloride 0.9% (plus) 50 ML IV (00:02)
[2022-05-09] MEDS: heparin 5,000 unit/mL INJ 1 mL 5000 UNIT SUBCUT ×3 (00:03→18:23)
[2022-05-09] MEDS: acetaminophen 500 mg Tablet PO (00:27)
[2022-05-09 03:50] LABS: Basophils % 0.3 %; Hematocrit 42.5 % (37.0-47.0); Hemoglobin 13.4 g/dL (11.5-15.3); Lymphocytes # 0.1 10^3/uL (0.8-4.8); Lymphocytes % 2.2 %; Mean Corpuscular HGB Conc 31.5 g/dL (30.0-36.0); Mean Corpuscular Hemoglobin 29.8 pg (28.0-34.0); Mean Corpuscular Volume 94.4 fl (81-99); Mean Platelet Volume 11.4 fL (7.4-10.4); Monocytes # 0.3 10^3/uL (0.2-0.9); Monocytes % 4.3 %; Neutrophils # 5.19 10^3/uL (1.8-7.7); Neutrophils % 88.9 %; Nucleated Red Blood Cells % 0.3 %; Platelet Count 215 10^3/cmm (130-400); Red Cell Distribution Width 14.2 % (12.1-15.1); White Blood Count 5.8 10^3/uL (4.0-10.0)
[2022-05-09] MEDS: cefepime 1,000 MG in sodium chloride 0.9% (plus) 50 ML 100 MG IV ×2 (04:05→18:23)
[2022-05-09 04:12] LABS: Blood Urea Nitrogen 29 mg/dL (6-20); C Reactive Protein 45.8 mg/L (0.0-4.9); Calcium 9.2 mg/dL (8.5-10.5); Carbon Dioxide 27 mmol/L (22-29); Chloride 99 mmol/L (98-107); Glomerular Filtration Rate 46.1 mL/min (90-130); Glucose 144 mg/dL (65-115); Magnesium 2.4 mg/dL (1.7-2.3); Osmolality Calculated 294 mOsm/kg (285-295); Sodium 138 mmol/L (136-145)
[2022-05-09 04:17] LABS: Anion Gap 16.6 (5-19); Potassium 4.6 mmol/L (3.5-5.1)
[2022-05-09 05:02] LABS: ABG PCO2 40.5 mmHg (35-45); ABG PH Result 7.47 (7.35-7.45); Arterial Blood Gas Hematocrit 42.7 % (37-47); Base Excess ABG 5.1 mmol/L (-2.0-2.0); Blood Gas Allen Test Pos; Blood Gas Operator Identificat JB; Blood Gas Sample Site Radial, left; Blood Gas Sample Type Arterial; HCO3 ABG 29.3 mmol/L (22-26); Oxygen Device HAG; PO2 ABG 67.9 mmHg (80.0-100.0)
[2022-05-09] MEDS: levoFLOXacin 750 mg Tablet PO (05:30)
[2022-05-09] MEDS: ipratropium-albuterol 3 mL Neb INHALATION ×4 (08:16→20:16)
[2022-05-09] MEDS: budesonide 0.5 mg/2 mL Neb INHALATION ×2 (08:16→20:16)
[2022-05-09 09:38] LABS: Glucose Point of Care 121 mg/dL (70-110)
[2022-05-09] MEDS: sennosides-docusate Tablet 1 TAB PO (09:47)
[2022-05-09] MEDS: dexamethasone 4 mg Tablet 6 MG PO (09:47)
[2022-05-09] MEDS: levothyroxine 175 mcg Tablet PO (09:48)
[2022-05-09] MEDS: NON-FORMULARY MEDICATION (Sildenafil (Pulm.Hypertension) 20 mg tablet) 20 EACH PO ×3 (09:58→20:26)
--- NOTE | 2022-05-09 10:41 | PC.CHAP ---
Pastoral Care Encounter/Spiritual Assessment Type of Contact [] Declined underwriting manager visit [] Patient/Family/Request visit [] Outpatient visit [] Follow-up visit [] Physician referral [] Code/Alert [x] Routine visit [] Staff referral [] Actively dying [] Patient sleeping [] Family support [] [] Out of room [] Palliative care [] [] Receiving care in room [] Pre-surgical visit [] Trauma [] Long length of stay [x] ICU visit [] Other: Relational/Emotional Strength [] Patient feels connected with others/family/visitors/staff [] Distress [] Loneliness/isolation [] Abandonment Spirituality of Patient [] Person of Sisi [] Attends Mandaeism of their Sisi [] Believes in Prayer [] Reads Bible or Muslim materials [] There are Spiritual issues to be addressed Supervisor Paper Products Interventions [x] Prayer [] Active listening [] Non-anxious presence [] Spiritual/emotional support [] Crisis/trauma care [] Spiritual counseling [] Bereavement support [] Provided bereavement packet [] Provided Bible/devotional materials [] Provided toy/stuffed animal, coloring book to patient or family member [] Provided Communion [] Anointing/[place] [] Salvation [x] Completed spiritual assessment [] Other: Impact on Illness or Injury [] Angry [] Fearful [] Anxious [] Often cries [] Exhaustion [] Unable to work [] Unable to attend scientologist [] Unable to walk/stand [] Unable to read [] Unable to drive [] Unable to eat/drink [] Unable to sleep [] Unable to be with family [] Patient intubated [] Other: Summary Time spent with patient
[2022-05-09 11:17] LABS: Glucose Point of Care 113 mg/dL (70-110)
--- NOTE | 2022-05-09 12:33 | P.PN_ITS ---
Subjective Subjective: Patient is COVID-positive She is refusing remdesivir she is okay to allow us to use Decadron for now She is on heated high flow 80% 20 L Patient is stating that she is slightly feeling better today She does not want intubation at any cost I did discuss that in front of a nurse in the ICU She is okay to use BiPAP if needed I did take her permission to call her son who is in [place] I will keep her on cefepime and discontinue Levaquin and Zosyn Continue Lasix along cefepime and Decadron Vitals/I&O/Wt Last Vital Signs Temp 96.9 F L 05/09/22 08:00 Pulse 109 H 05/09/22 12:00 Resp 16 05/09/22 12:00 BP 161/113 05/09/22 12:00 Pulse Ox 95 05/09/22 12:00 O2 Del Method 05/09/22 12:00 O2 Flow Rate 20 05/09/22 12:00 FiO2 80 05/09/22 12:00 05/08/22 05/09/22 05/09/22 22:59 06:59 14:59 Intake Total 410 / 410 580 / 990 400 / 400 Output Total 600 / 600 525 / 1125 Balance -190 / -190 55 / -135 400 / 400 Weight last 48 hrs Weight 84.459 kg Weight 84.822 kg Weight 84.822 kg Physical Exam Narrative: Patient is awake and alert Currently on heated high flow 80% 20 L Clinically looks euvolemic Crackles noted with crepitation today on lung auscultation Sinus tachycardia Abdomen soft Awake and alert Appropriate mood and affect Pleasant during my evaluation Urinary Catheter Management: Francois: Cath Placed During This Visit: yes Reason for Continuing Indwelling Catheter: Accurate Measurement of Urinary Outp ut in Critically Ill Patients Urinary Catheter Date of Insertion: 05/08/22 Urinary Catheter Time of Insertion: 19:15 Data : 05/09/22 03:38 05/09/22 03:38 A&P Assessment and plan (1) Acute and chronic respiratory failure with hypoxia: (2) Pneumonia: (3) CAP (community acquired pneumonia): (4) COPD (chronic obstructive pulmonary disease): Qualifiers: COPD type: emphysema Emphysema type: unspecified Qualified Code(s): J43.9 - Emphysema, unspecified (5) Acquired hypothyroidism: (6) COVID: Plan COVID-19 related hypoxia Acute on chronic hypoxia At home uses 5 to 8 L Currently on 80% 20 L She has underlying pulmonary fibrosis primary hypertension and COPD She does not want intubation at any cost Okay to use BiPAP if needed Goals of care in front of an ICU nurse Will call her son today to update Continue sildenafil along Lasix, cefepime Continue Decadron Grade 1 diastolic dysfunction Clinically does not look fluid overloaded Crepitation and crackles noted on lung auscultation Currently on Lasix Rheumatoid arthritis without acute flare Steroid-induced hyperglycemia Euglycemic DNR/DNI Procalcitonin unremarkable I have kept her on mechanical soft diet Diarrhea: Rule out C. difficile Attestations Medical Necessity Statement*: Continue ICU management Time Spent in Patient Care: 40 Coding Level of Care Code Acute Case Technician for [facility] Fwd Diagnoses Acute and chronic respiratory failure with hypoxia J96.21 Pneumonia J18.9 CAP (community acquired pneumonia) J18.9 COPD (chronic obstructive pulmonary disease) J43.9 COPD type: emphysema Emphysema type: unspecified Acquired hypothyroidism E03.9 COVID U07.1
[2022-05-09] MEDS: amlodipine 10 mg Tablet PO (14:42)
[2022-05-09] MEDS: hyDRALAzine 20 mg/mL INJ 1 mL 10 MG IVP (14:43)
[2022-05-09] MEDS: FUROsemide 10 mg/mL SDV 10mL 60 MG IVP (14:43)
[2022-05-09 17:36] LABS: Glucose Point of Care 139 mg/dL (70-110)
[2022-05-09] MEDS: potassium chloride ER 10 mEq Tablet PO (18:23)
[2022-05-09] MEDS: pantoprazole DR 40 mg Tablet PO (18:23)
--- NOTE | 2022-05-09 18:42 | PC.NURSE ---
Shift Note: Pt has sat up in chair most for shift. She tends to hold her breath when moving, or needlesticks, her sats will drop at these times to 85%. Most of the shift it has maintained greater than 90%. She remains on heated high flow, rates of 20liters and 80%. She has used the IS and Acapella occasionally but not every hour. She was started pn hydralazien and amlodipine. She received Lasix this afternoon and replacement PO potassium.. Urine out put of 1000ml this shift. Frequent safety and comfort rounds continue. Orders and/or nursing care completed as indicated. Patient monitored for response to intervention and treatment(s). Education provided includes heparine, amlodine, hydralazine, progress and plan of care. Patient verbalizes understanding of plan of care, progress and medications. Will continue to monitor.
--- NOTE | 2022-05-09 19:18 | PC.NURSE ---
Bedside report completed with JUJU Miranda.
[2022-05-09] MEDS: hyDRALAzine 10 mg Tablet PO (20:26)
[2022-05-09 21:23] LABS: Glucose Point of Care 138 mg/dL (70-110)
[2022-05-10] VITALS (32 sets, daily range): BP systolic 98–152; BP diastolic 72–107; PULSE 77–133; RESP 8–24; TEMP 36.1–36.8; O2SAT 90–100
[2022-05-10] MEDS: heparin 5,000 unit/mL INJ 1 mL 5000 UNIT SUBCUT ×3 (00:16→17:32)
[2022-05-10 03:49] LABS: ABG PCO2 42.8 mmHg (35-45); ABG PH Result 7.45 (7.35-7.45); Arterial Blood Gas Hematocrit 49.5 % (37-47); Base Excess ABG 4.9 mmol/L (-2.0-2.0); Blood Gas Allen Test Pos; Blood Gas Operator Identificat JB; Blood Gas Sample Site Radial, right; Blood Gas Sample Type Arterial; HCO3 ABG 29.6 mmol/L (22-26); Oxygen Device HAG
[2022-05-10 03:55] LABS: Basophils % 0.5 %; Eosinophils % 0.1 %; Hemoglobin 14.5 g/dL (11.5-15.3); Lymphocytes # 0.3 10^3/uL (0.8-4.8); Lymphocytes % 3.8 %; Mean Corpuscular HGB Conc 30.9 g/dL (30.0-36.0); Mean Corpuscular Hemoglobin 28.9 pg (28.0-34.0); Mean Corpuscular Volume 93.8 fl (81-99); Mean Platelet Volume 10.8 fL (7.4-10.4); Monocytes # 0.5 10^3/uL (0.2-0.9); Monocytes % 5.4 %; Neutrophils # 7.52 10^3/uL (1.8-7.7); Neutrophils % 86.7 %; Nucleated Red Blood Cells % 0 %; Platelet Count 287 10^3/cmm (130-400); Red Blood Count 5.01 10^6/uL (4.1-5.3); Red Cell Distribution Width 14.7 % (12.1-15.1); White Blood Count 8.7 10^3/uL (4.0-10.0)
[2022-05-10] MEDS: cefepime 1,000 MG in sodium chloride 0.9% (plus) 50 ML 100 MG IV ×2 (04:46→17:32)
[2022-05-10 05:27] LABS: Anion Gap 16.8 (5-19); Blood Urea Nitrogen 37 mg/dL (6-20); Calcium 9.3 mg/dL (8.5-10.5); Carbon Dioxide 28 mmol/L (22-29); Chloride 99 mmol/L (98-107); Glomerular Filtration Rate 38.6 mL/min (90-130); Glucose 123 mg/dL (65-115); Osmolality Calculated 300 mOsm/kg (285-295); Potassium 3.8 mmol/L (3.5-5.1); Sodium 140 mmol/L (136-145)
[2022-05-10] MEDS: ALPRAZolam 0.5 mg Tablet PO ×2 (05:48→20:29)
--- NOTE | 2022-05-10 06:09 | PC.RESP ---
patient self proned for approximately 30-40minutes. Patient is now refusing to self prone,or lay on side, patient has agreed to high fowlers position at this time. Patient educated by nursing staff and this RT multiple times on benefits of self proning
[2022-05-10] MEDS: ipratropium-albuterol 3 mL Neb INHALATION ×4 (08:16→20:40)
[2022-05-10] MEDS: budesonide 0.5 mg/2 mL Neb INHALATION ×2 (08:16→20:40)
[2022-05-10 08:34] LABS: Glucose Point of Care 103 mg/dL (70-110)
[2022-05-10] MEDS: hyDRALAzine 10 mg Tablet PO ×3 (08:53→20:29)
[2022-05-10] MEDS: dexamethasone 4 mg Tablet 6 MG PO (08:53)
[2022-05-10] MEDS: amlodipine 10 mg Tablet PO (08:53)
[2022-05-10] MEDS: pantoprazole DR 40 mg Tablet PO (08:53)
[2022-05-10] MEDS: levothyroxine 175 mcg Tablet PO (08:54)
[2022-05-10] MEDS: NON-FORMULARY MEDICATION (Sildenafil (Pulm.Hypertension) 20 mg tablet) 20 EACH PO ×3 (08:54→20:29)
[2022-05-10] MEDS: sennosides-docusate Tablet 1 TAB PO (08:54)
--- NOTE | 2022-05-10 09:21 | ECG_ITS ---
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 Measurements Intervals [place] Rate: 120 P: 64 WI: 124 QRS: -11 QRSD: 84 T: 29 QT: 339 QTc: 479 Interpretive Statements SINUS TACHYCARDIA NONSPECIFIC T-WAVE ABNORMALITY Compared to ECG 05/08/2022 22:21:12 Sinus rhythm no longer present Atrial abnormality no longer present T-wave abnormality still present Electronically Signed On 05-10-2022 12:53:01 CDT by Harmony Montoya M.D. [id number]
--- NOTE | 2022-05-10 09:27 | PM.PN ---
Subjective Subjective: Patient is requiring 25% oxygen with 45 L She is agreeable for BiPAP use that she We did discuss LTAC placement She is still adamant that she would not allow us to intubate her She does not want remdesivir Continue steroids No fever Afebrile She becomes hypoxic on minimal exertion Her PO2 at rest is about 100 Creatinine slightly worsened, negative balance 645 Hypertension improved Will do twelve-lead EKG she still sinus tachycardic repeat D-dimer Vitals/I&O/Wt Last Vital Signs Temp 98.3 F 05/10/22 04:00 Pulse 112 H 05/10/22 08:27 Resp 21 H 05/10/22 08:27 BP 146/89 05/10/22 06:00 Pulse Ox 93 05/10/22 08:27 O2 Del Method 05/10/22 08:27 O2 Flow Rate 45 05/10/22 08:27 FiO2 95 05/10/22 08:27 05/09/22 05/10/22 05/10/22 22:59 06:59 14:59 Intake Total 520 / 1120 60 / 1180 Output Total 1000 / 1000 425 / 1425 Balance -480 / 120 -365 / -245 Weight last 48 hrs Weight 82.463 kg Weight 84.459 kg Weight 84.822 kg Weight 84.822 kg Physical Exam Narrative: Patient is awake and alert Nonfocal neuro exam Currently on heated high flow Abdomen soft No signs of edema Bilateral breath sounds without wheezing, crackles slightly better as compared to yesterday Awake and alert Pleasant during evaluation Currently in isolation S1, S2 sinus tachycardia Urinary Catheter Management: Francois: Cath Placed During This Visit: yes Reason for Continuing Indwelling Catheter: Accurate Measurement of Urinary Output in Critically Ill Patients Urinary Catheter Date of Insertion: 05/08/22 Urinary Catheter Time of Insertion: 19:15 Data : 05/10/22 03:33 05/10/22 05:05 A&P Assessment and plan (1) COVID: (2) Acute and chronic respiratory failure with hypoxia: (3) Seropositive rheumatoid arthritis of multiple sites: (4) Pulmonary fibrosis: (5) High risk medication use: (6) Pulmonary hypertension: (7) Acquired hypothyroidism: Plan Acute on chronic hypoxic COVID-19 infection with underlying pulmonary hypertension primary fibrosis and COPD Ox requirement has worsened to 95% on heated high flow along 45 L Patient becomes hypoxic on minimal exertion She is tachycardic for last 48 hours we will do another twelve-lead EKG another D-dimer previous CTA did not show PE I have de-escalated her antibiotics she has been afebrile no leukocytosis Currently on empirical coverage with cefepime Continue Lasix I will cut back on Lasix dose Hypertension: Proved with amlodipine and hydralazine Severe pulmonary hypertension: Continue sildenafil DVT prophylaxis with heparin Anxiety, no acute exacerbation I have put Xanax and Precedex for as needed use She will need LTAC placement patient is agreeable assistant distribution manager updated DNR/DNI Will call and update her son Cultures negative to date Repeat x-ray Attestations Medical Necessity Statement*: Continue ICU management Critical Care Time: 30 Coding Level of Care Code Acute Legal Secretary for [employer] Fwd Diagnoses COVID U07.1 Acute and chronic respiratory failure with hypoxia J96.21 Seropositive rheumatoid arthritis of multiple sites M05.79 Pulmonary fibrosis J84.10 High risk medication use Z79.899 Pulmonary hypertension I27.20 Acquired hypothyroidism E03.9
--- NOTE | 2022-05-10 09:32 | XR_ITS ---
WS: [id number] XR chest 1V portable [id number] REASON FOR EXAM: covid FINDINGS: Reticular interstitial and patchy airspace opacities in both lower lung philippe. These findings are un changed compared to 05/08/2022. The heart and mediastinum are within normal limits. No new findings. XR/XR chest 1V portable [id number] IMPRESSION: Stable abnormal chest as above.
[2022-05-10 10:14] LABS: Creatine Phosphokinase 145 U/L (26-192); Lactate Dehydrogenase 332 U/L (135-214)
[2022-05-10 10:15] LABS: D Dimer 2.98 ug/mIFEU (0-0.59)
--- NOTE | 2022-05-10 10:31 | PC.CHAP ---
Pastoral Care Encounter/Spiritual Assessment Type of Contact [] Declined senior software test engineer visit [] Patient/Family/Request visit [] Outpatient visit [] Follow-up visit [] Physician referral [] Code/Alert [x] Routine visit [] Staff referral [] Actively dying [x] Patient sleeping [] Family support [] [] Out of room [] Palliative care [] [] Receiving care in room [] Pre-surgical visit [] Trauma [] Long length of stay [x] ICU visit [] Other: Relational/Emotional Strength [] Patient feels connected with others/family/visitors/staff [] Distress [] Loneliness/isolation [] Abandonment Spirituality of Patient [] Person of Sisi [] Attends Orthodoxy of their Sisi [] Believes in Prayer [] Reads Bible or Orthodoxy materials [] There are Spiritual issues to be addressed Clinical Trainer Interventions [x] Prayer [] Active listening [] Non-anxious presence [] Spiritual/emotional support [] Crisis/trauma care [] Spiritual counseling [] Bereavement support [] Provided bereavement packet [] Provided Bible/devotional materials [] Provided toy/stuffed animal, coloring book to patient or family member [] Provided Communion [] Anointing/[place] [] Salvation [x] Completed spiritual assessment [] Other: Impact on Illness or Injury [] Angry [] Fearful [] Anxious [] Often cries [] Exhaustion [] Unable to work [] Unable to attend denominational [] Unable to walk/stand [] Unable to read [] Unable to drive [] Unable to eat/drink [] Unable to sleep [] Unable to be with family [] Patient intubated [] Other: Summary Time spent with patient
[2022-05-10] MEDS: levoFLOXacin 750 mg Tablet PO (10:54)
--- NOTE | 2022-05-10 11:08 | PC.NURSE ---
[address] Rivera. Orders for EKG.
[2022-05-10 11:37] LABS: Glucose Point of Care 113 mg/dL (70-110)
[2022-05-10 17:39] LABS: Glucose Point of Care 138 mg/dL (70-110)
[2022-05-11] VITALS (33 sets, daily range): BP systolic 86–140; BP diastolic 60–95; PULSE 68–120; RESP 8–23; TEMP 36.2–36.9; O2SAT 88–99
[2022-05-11] MEDS: heparin 5,000 unit/mL INJ 1 mL 5000 UNIT SUBCUT ×2 (00:11→08:11)
[2022-05-11 04:05] LABS: ABG PCO2 46.3 mmHg (35-45); ABG PH Result 7.43 (7.35-7.45); Base Excess ABG 5.6 mmol/L (-2.0-2.0); Blood Gas Allen Test Pos; Blood Gas Operator Identificat JB; Blood Gas Sample Site Radial, left; Blood Gas Sample Type Arterial; HCO3 ABG 30.9 mmol/L (22-26); Oxygen Device HAG; PO2 ABG 54.8 mmHg (80.0-100.0)
[2022-05-11 04:39] LABS: Basophils # 0.1 10^3/uL (0.0-0.1); Basophils % 0.7 %; Eosinophils % 0.1 %; Hematocrit 44.4 % (37.0-47.0); Hemoglobin 13.7 g/dL (11.5-15.3); Lymphocytes # 0.4 10^3/uL (0.8-4.8); Lymphocytes % 5.6 %; Mean Corpuscular HGB Conc 30.9 g/dL (30.0-36.0); Mean Corpuscular Hemoglobin 29.5 pg (28.0-34.0); Mean Corpuscular Volume 95.7 fl (81-99); Mean Platelet Volume 11.4 fL (7.4-10.4); Monocytes # 0.4 10^3/uL (0.2-0.9); Monocytes % 5.1 %; Neutrophils # 5.66 10^3/uL (1.8-7.7); Neutrophils % 83.4 %; Nucleated Red Blood Cells % 0 %; Platelet Count 211 10^3/cmm (130-400); Positive C 1; Positive M 1; Red Blood Count 4.64 10^6/uL (4.1-5.3); Red Cell Distribution Width 14.6 % (12.1-15.1); White Blood Count 6.8 10^3/uL (4.0-10.0)
[2022-05-11] MEDS: cefepime 1,000 MG in sodium chloride 0.9% (plus) 50 ML 100 MG IV ×2 (04:41→17:13)
[2022-05-11 04:55] LABS: Calcium 8.9 mg/dL (8.5-10.5); Carbon Dioxide 28 mmol/L (22-29); Chloride 100 mmol/L (98-107); Sodium 138 mmol/L (136-145)
[2022-05-11 05:01] LABS: Procalcitonin 0.06 ng/mL (0-0.5)
[2022-05-11 05:08] LABS: Slide Review Slide Review Perform
[2022-05-11 05:26] LABS: Anion Gap 14.4 (5-19)
[2022-05-11] MEDS: ALPRAZolam 0.5 mg Tablet PO ×2 (05:26→20:15)
[2022-05-11 05:29] LABS: Blood Urea Nitrogen 35 mg/dL (6-20); C Reactive Protein 26.3 mg/L (0.0-4.9); Ferritin 457 ng/mL (15-150); Glucose 128 mg/dL (65-115); Osmolality Calculated 296 mOsm/kg (285-295); Potassium 4.4 mmol/L (3.5-5.1)
[2022-05-11] MEDS: NON-FORMULARY MEDICATION (Sildenafil (Pulm.Hypertension) 20 mg tablet) 20 EACH PO ×3 (08:10→20:15)
[2022-05-11] MEDS: pantoprazole DR 40 mg Tablet PO (08:10)
[2022-05-11] MEDS: sennosides-docusate Tablet 1 TAB PO (08:11)
[2022-05-11] MEDS: dexamethasone 4 mg Tablet 6 MG PO (08:11)
[2022-05-11] MEDS: levothyroxine 175 mcg Tablet PO (08:11)
[2022-05-11] MEDS: hyDRALAzine 10 mg Tablet PO ×3 (08:11→20:15)
[2022-05-11] MEDS: amlodipine 10 mg Tablet PO (08:11)
[2022-05-11] MEDS: FUROsemide 40 mg Tablet PO (08:11)
[2022-05-11 08:34] LABS: Glucose Point of Care 109 mg/dL (70-110)
[2022-05-11] MEDS: budesonide 0.5 mg/2 mL Neb INHALATION ×2 (08:35→20:39)
[2022-05-11] MEDS: ipratropium-albuterol 3 mL Neb INHALATION ×2 (08:35→11:26)
--- NOTE | 2022-05-11 09:02 | PC.NURSE ---
up in bed for am meal no distress at this time.. remains on high flow o2
--- NOTE | 2022-05-11 10:31 | PC.CHAP ---
Pastoral Care Encounter/Spiritual Assessment Type of Contact [] Declined appeals nurse visit [] Patient/Family/Request visit [] Outpatient visit [] Follow-up visit [] Physician referral [] Code/Alert [x] Routine visit [] Staff referral [] Actively dying [] Patient sleeping [] Family support [] [] Out of room [] Palliative care [] [] Receiving care in room [] Pre-surgical visit [] Trauma [] Long length of stay [x] ICU visit [] Other: Relational/Emotional Strength [] Patient feels connected with others/family/visitors/staff [] Distress [] Loneliness/isolation [] Abandonment Spirituality of Patient [] Person of Sisi [] Attends Tenriism of their Sisi [] Believes in Prayer [] Reads Bible or Sikhism materials [] There are Spiritual issues to be addressed Cigar Wrapper Tender Automatic Interventions [x] Prayer [] Active listening [] Non-anxious presence [] Spiritual/emotional support [] Crisis/trauma care [] Spiritual counseling [] Bereavement support [] Provided bereavement packet [] Provided Bible/devotional materials [] Provided toy/stuffed animal, coloring book to patient or family member [] Provided Communion [] Anointing/[place] [] Salvation [x] Completed spiritual assessment [] Other: Impact on Illness or Injury [] Angry [] Fearful [] Anxious [] Often cries [] Exhaustion [] Unable to work [] Unable to attend baptist [] Unable to walk/stand [] Unable to read [] Unable to drive [] Unable to eat/drink [] Unable to sleep [] Unable to be with family [] Patient intubated [] Other: Summary Time spent with patient
--- NOTE | 2022-05-11 12:10 | P.PN_ITS ---
Subjective Subjective: This morning patient is on 70% 45 L PO2 54.8 Adequate diuresis Patient is endorsing feeling stable today Agreeable to go to LTAC, son was updated yesterday No overnight events No active diarrhea Afebrile No leukocytosis Blood sugar is within good range High inflammatory markers noted Vitals/I&O/Wt Last Vital Signs Temp 97.4 F L 05/11/22 05:00 Pulse 101 H 05/11/22 11:48 Resp 18 05/11/22 11:48 BP 116/75 05/11/22 10:00 Pulse Ox 92 05/11/22 11:48 O2 Del Method 05/11/22 11:48 O2 Flow Rate 45 05/11/22 11:48 FiO2 70 05/11/22 11:48 05/10/22 05/11/22 05/11/22 22:59 06:59 14:59 Intake Total 370 / 770 290 / 1060 250 / 250 Output Total 500 / 500 800 / 1300 Balance -130 / 270 -510 / -240 250 / 250 Weight last 48 hrs Weight 85.457 kg Weight 82.463 kg Physical Exam Narrative: Patient looks euvolemic Awake and alert Currently on heated high flow 45 L 70% Nonfocal neuro exam Sinus tachycardia is persistent Abdomen soft Awake and alert Nonfocal neuro exam Urinary Catheter Management: Francois: Cath Placed During This Visit: yes Reason for Continuing Indwelling Catheter: Accurate Measurement of Urinary Output in Critically Ill Patients Urinary Catheter Date of Insertion: 05/08/22 Urinary Catheter Time of Insertion: 19:15 Data : 05/11/22 03:40 05/11/22 03:40 A&P Assessment and plan (1) COVID: (2) Acute and chronic respiratory failure with hypoxia: (3) Pneumonia: (4) CAP (community acquired pneumonia): (5) Sinus tachycardia: (6) Pulmonary fibrosis: (7) COPD (chronic obstructive pulmonary disease): Qualifiers: COPD type: emphysema Emphysema type: unspecified Qualified Code(s): J43.9 - Emphysema, unspecified (8) Pulmonary hypertension: (9) Acquired hypothyroidism: Plan Persistent hypoxia related to COVID-19 with underlying pulmonary fibrosis pulmonary hypertension and COPD Patient will need some time to recover Currently on 70% 45 L Afebrile, no leukocytosis Sinus tachycardia is persistent She is getting empirical coverage with cefepime 1 g every 12 hours Continue Decadron I will also continue Lasix Acute on chronic kidney disease creatinine back to baseline with diuresis I have changed her Levaquin to every 48 hours along cefepime Hypertension: Better Sinus tachycardia is persistent D-dimer is high recent CTA chest ruled out PE I would go ahead and start her on therapeutic Lovenox for now DNR/DNI Son was updated Patient and her son both agreeable for LTAC placement DVT prophylaxis changed to Lovenox today Currently on regular diet She is not diabetic The reason I added sliding scale was because of use of Decadron She is agreeable for BiPAP use if indicated Attestations 2 Medical Necessity Statement*: Continue ICU management Time Spent in Patient Care: 40 Coding Level of Care Code Acute Exercise Equipment Repair Technician for g Fwd Diagnoses COVID U07.1 Acute and chronic respiratory failure with hypoxia J96.21 Pneumonia J18.9 CAP (community acquired pneumonia) J18.9 Sinus tachycardia R00.0 Pulmonary fibrosis J84.10 COPD (chronic obstructive pulmonary disease) J43.9 COPD type: emphysema Emphysema type: unspecified Pulmonary hypertension I27.20 Acquired hypothyroidism E03.9
--- NOTE | 2022-05-11 12:15 | USCV_ITS ---
Chayito Small Age: 56 Gender: F : 1965 Exam Date: 05/11/2022 13:45 Ordering Phys: Ralph Rivera MD Technologist: [id number] [place] [facility] [place]: Leg swelling and pain PROCEDURES: Venous duplex imaging was performed in bilateral lower extremities. The following venous structures were evaluated: common femoral vein, profunda vein, proximal portion of the greater saphenous vein, superficial femoral vein, and the popliteal vein. In addition, the posterior tibial and peroneal trunk were evaluated. Bilaterally, the common femoral, superficial femoral, profunda femoral, popliteal, posterior tibial, greater saphenous veins, and the peroneal trunk were identified and interrogated in the standard fashion. These veins were found to be easily compressible with spontaneous blood flow. No evidence of insufficiency or thrombus noted. FINDINGS: No evidence of DVT seen in any vessel visualized at this time. CONCLUSIONS No evidence of right lower extremity DVT. No evidence of left lower extremity DVT. Richard Nunes MD (Electronically Signed) Final Date: 11 May 2022 16:16 S
[2022-05-11] MEDS: enoxaparin 100 mg/mL Syringe 90 MG SUBCUT ×2 (14:05→23:18)
--- NOTE | 2022-05-11 15:07 | PC.SOCIAL ---
IMM update IMM not updated as patient isn't expected to dc in the next 24-48 hours.
[2022-05-11] MEDS: levalbuterol 1.25 mg/3 mL Neb INHALATION ×2 (15:48→20:39)
[2022-05-11] MEDS: ipratropium 0.5 mg/2.5 mL Neb INHALATION ×2 (15:48→20:39)
[2022-05-11] MEDS: acetylcysteine 200 mg/mL SDV 4 mL 100 MG INHALATION ×2 (15:49→20:39)
[2022-05-11 17:26] LABS: Glucose Point of Care 138 mg/dL (70-110)
[2022-05-12] VITALS (33 sets, daily range): BP systolic 95–148; BP diastolic 59–113; PULSE 70–128; RESP 11–24; TEMP 36.6–36.7; O2SAT 82–95
[2022-05-12] MEDS: acetylcysteine 200 mg/mL SDV 4 mL 100 MG INHALATION ×4 (02:33→20:29)
[2022-05-12] MEDS: ipratropium 0.5 mg/2.5 mL Neb INHALATION ×4 (02:33→20:29)
[2022-05-12] MEDS: levalbuterol 1.25 mg/3 mL Neb INHALATION ×4 (02:33→20:29)
[2022-05-12] MEDS: cefepime 1,000 MG in sodium chloride 0.9% (plus) 50 ML 100 MG IV (04:57)
[2022-05-12] MEDS: ALPRAZolam 0.5 mg Tablet PO (05:11)
[2022-05-12 05:26] LABS: Alanine Aminotransferase 12 U/L (0-33); Albumin Level 3.2 g/dL (3.5-5.2); Alkaline Phosphatase 53 U/L (35-105); Aspartate Amino Transferase 16 U/L (0-32); Blood Urea Nitrogen 30 mg/dL (6-20); Calcium 9.1 mg/dL (8.5-10.5); Carbon Dioxide 31 mmol/L (22-29); Chloride 98 mmol/L (98-107); Globulin 2.7 g/dL (1.3-4.6); Glucose 125 mg/dL (65-115); Osmolality Calculated 290 mOsm/kg (285-295); Sodium 136 mmol/L (136-145); Total Bilirubin 0.5 mg/dL (0.15-1.2); Total Protein 5.9 g/dL (6.6-8.7)
[2022-05-12 05:36] LABS: Anion Gap 11.2 (5-19); Potassium 4.2 mmol/L (3.5-5.1)
[2022-05-12] MEDS: FUROsemide 40 mg Tablet PO (08:03)
[2022-05-12] MEDS: amlodipine 10 mg Tablet PO (08:03)
[2022-05-12] MEDS: levothyroxine 175 mcg Tablet PO (08:03)
[2022-05-12] MEDS: hyDRALAzine 10 mg Tablet PO ×3 (08:03→20:27)
[2022-05-12] MEDS: sennosides-docusate Tablet 1 TAB PO (08:03)
[2022-05-12] MEDS: dexamethasone 4 mg Tablet 6 MG PO (08:03)
[2022-05-12] MEDS: glycerin adult supp 1 EACH PR (08:03)
[2022-05-12] MEDS: pantoprazole DR 40 mg Tablet PO (08:03)
[2022-05-12] MEDS: budesonide 0.5 mg/2 mL Neb INHALATION ×2 (08:30→20:29)
[2022-05-12] MEDS: levoFLOXacin 750 mg Tablet PO (11:13)
--- NOTE | 2022-05-12 13:04 | P.PN_ITS ---
Subjective Subjective: This morning patient is endorsing severe constipation she was given rectal suppository She had 1 bowel movement She is currently on 55% FiO2 Awaiting LTAC placement Hemodynamically stable Afebrile Vitals/I&O/Wt Last Vital Signs Temp 98.0 F 05/12/22 08:00 Pulse 115 H 05/12/22 11:15 Resp 22 H 05/12/22 11:15 BP 121/84 05/12/22 09:00 Pulse Ox 93 05/12/22 11:15 O2 Del Method 05/12/22 10:00 O2 Flow Rate 30 05/12/22 11:15 FiO2 50 05/12/22 11:15 05/11/22 05/12/22 05/12/22 22:59 06:59 14:59 Intake Total 600 / 850 350 / 1200 600 / 600 Output Total 1250 / 1250 1100 / 2350 Balance -650 / -400 -750 / -1150 600 / 600 Weight last 48 hrs Weight 87.498 kg Weight 85.457 kg Physical Exam Narrative: Clinically patient is doing abdomen is soft Bowel sound present Bilateral breath sounds with rhonchi mild crackles Awake and alert Pleasant during my evaluation Laying supine Nurse at the bedside Francois catheter draining dilute urine Urinary Catheter Management: Francois: Cath Placed During This Visit: yes Reason for Continuing Indwelling Catheter: Accurate Measurement of Urinary Output in Critically Ill Patients Urinary Catheter Date of Insertion: 05/08/22 Urinary Catheter Time of Insertion: 19:15 Data : 05/11/22 03:40 05/12/22 04:48 A&P Assessment and plan (1) Sinus tachycardia: (2) COVID: (3) Acute and chronic respiratory failure with hypoxia: (4) Pneumonia: (5) CAP (community acquired pneumonia): (6) Pulmonary fibrosis: (7) Seropositive rheumatoid arthritis: (8) COPD (chronic obstructive pulmonary disease): Qualifiers: COPD type: emphysema Emphysema type: unspecified Qualified Code(s): J43.9 - Emphysema, unspecified (9) Pulmonary hypertension: (10) Acquired hypothyroidism: Plan Acute on chronic hypoxic acute on chronic hypoxia COVID-19 Currently on 55% 40 L She does get hypoxic on minimal exertion For severe constipation we will give her lactulose and senna S along with rectal suppository today Keep diuresing her along steroids Blood sugars within target range She is in good spirits Agreeable to go to LTAC all source collection manager updated DVT ruled out No signs of PE She still sinus tachycardic DNR/DNI Son updated She has refused remdesivir regimen Considering pulmonary fibrosis pulm hypertension and COPD high risk of mortality and morbidity We can DC her isolation her symptoms started more than 12 days ago Attestations Medical Necessity Statement*: Continue icu management Time Spent in Patient Care: 40 Coding Level of Care Code Acute Zoo Caretaker for Chg Fwd Diagnoses Sinus tachycardia R00.0 COVID U07.1 Acute and chronic respiratory failure with hypoxia J96.21 Pneumonia J18.9 CAP (community acquired pneumonia) J18.9 Pulmonary fibrosis J84.10 Seropositive rheumatoid arthritis M05.9 COPD (chronic obstructive pulmonary disease) J43.9 COPD type: emphysema Emphysema type: unspecified Pulmonary hypertension I27.20 Acquired hypothyroidism E03.9
[2022-05-12] MEDS: enoxaparin 100 mg/mL Syringe 90 MG SUBCUT (14:39)
[2022-05-12] MEDS: cetirizine 10 mg Tablet PO (20:27)
[2022-05-12] MEDS: morphine 4 mg/mL SDV 1 mL 2 MG IVP (21:32)
[2022-05-12] MEDS: benzonatate 100 mg Capsule PO (21:34)
[2022-05-13] VITALS (27 sets, daily range): BP systolic 114–142; BP diastolic 74–92; PULSE 91–128; RESP 10–23; TEMP 36.3–36.7; O2SAT 84–95
--- NOTE | 2022-05-13 00:04 | XRR_ITS ---
PROCEDURE INFORMATION: Exam: XR Chest Exam date and time: 05/13/2022 9:30 AM Age: 56 years old Clinical indication: Other: F/up covid TECHNIQUE: Imaging protocol: Radiologic exam of the chest. Views: 1 view. COMPARISON: CR XR chest 1V portable [id number] 05/10/2022 10:02 AM FINDINGS: Lungs: Left lower lobe interstitial congestion No consolidation. Left upper lobe granuloma. Right lower lobe atelectasis Pleural spaces: Unremarkable. No pleural effusion. No pneumothorax. Heart/Mediastinum: Unremarkable. No cardiomegaly. Bones/joints: Unremarkable. Other findings: Comparison to prior examination similar findings is seen XR/XR chest 1V portable [id number] IMPRESSION: 1. No acute findings. 2. Left lower lobe interstitial congestion 3. Stable granuloma left upper lobe
[2022-05-13] MEDS: enoxaparin 100 mg/mL Syringe 90 MG SUBCUT ×3 (00:15→23:24)
[2022-05-13] MEDS: ALPRAZolam 0.5 mg Tablet PO ×3 (00:15→23:24)
[2022-05-13] MEDS: guaiFENesin-dextromethorphan UDC 10 mL PO ×3 (00:15→23:25)
[2022-05-13] MEDS: morphine 4 mg/mL SDV 1 mL 2 MG IVP (02:58)
[2022-05-13] MEDS: levalbuterol 1.25 mg/3 mL Neb INHALATION ×4 (03:23→19:56)
[2022-05-13] MEDS: ipratropium 0.5 mg/2.5 mL Neb INHALATION ×4 (03:23→19:56)
[2022-05-13] MEDS: acetylcysteine 200 mg/mL SDV 4 mL 100 MG INHALATION ×4 (03:24→19:56)
[2022-05-13 03:49] LABS: ABG PCO2 41.3 mmHg (35-45); Arterial Blood Gas Hematocrit 44.1 % (37-47); Base Excess ABG 8.1 mmol/L (-2.0-2.0); Blood Gas Allen Test Pos; Blood Gas Sample Site Radial, right; Blood Gas Sample Type Arterial; HCO3 ABG 32.1 mmol/L (22-26); Oxygen Device NC; PO2 ABG 47.5 mmHg (80.0-100.0)
--- NOTE | 2022-05-13 05:16 | ECG_ITS ---
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 Measurements Intervals [place] Rate: 97 P: 65 NC: 123 QRS: -11 QRSD: 87 T: 33 QT: 313 QTc: 398 Interpretive Statements SINUS RHYTHM POSSIBLE LEFT ATRIAL ENLARGEMENT [-0.1mV P-WAVE IN V1/V2] POSSIBLE RIGHT VENTRICULAR CONDUCTION DELAY [RSR (QR) IN V1/V2] Compared to ECG 05/10/2022 09:32:14 Sinus tachycardia no longer present T-wave abnormality no longer present Electronically Signed On 05-13-2022 18:17:13 CDT by Jairon Thrasher M.D. [id number]
[2022-05-13] MEDS: levothyroxine 175 mcg Tablet PO (05:22)
[2022-05-13] MEDS: ketorolac 30 mg/mL INJ 15 MG IVP (05:22)
[2022-05-13 05:46] LABS: Anion Gap 12.6 (5-19); Blood Urea Nitrogen 29 mg/dL (6-20); Carbon Dioxide 29 mmol/L (22-29); Chloride 97 mmol/L (98-107); Glomerular Filtration Rate 46.1 mL/min (90-130); Glucose 110 mg/dL (65-115); Osmolality Calculated 286 mOsm/kg (285-295); Potassium 3.6 mmol/L (3.5-5.1); Sodium 135 mmol/L (136-145)
[2022-05-13 05:48] LABS: Troponin T (5th) Once 19 ng/L (0-10)
[2022-05-13] MEDS: budesonide 0.5 mg/2 mL Neb INHALATION ×2 (08:19→19:56)
[2022-05-13] MEDS: sennosides-docusate Tablet 1 TAB PO (08:33)
[2022-05-13] MEDS: hyDRALAzine 10 mg Tablet PO ×3 (08:33→21:16)
[2022-05-13] MEDS: cetirizine 10 mg Tablet PO (08:33)
[2022-05-13] MEDS: pantoprazole DR 40 mg Tablet PO (08:33)
[2022-05-13] MEDS: amlodipine 10 mg Tablet PO (08:34)
[2022-05-13] MEDS: FUROsemide 40 mg Tablet PO (08:34)
[2022-05-13] MEDS: dexamethasone 4 mg Tablet 6 MG PO (08:34)
[2022-05-13] MEDS: benzonatate 100 mg Capsule PO (09:26)
[2022-05-13] MEDS: levoFLOXacin 750 mg Tablet PO (09:26)
--- NOTE | 2022-05-13 10:21 | PC.SOCIAL ---
IMM update IMM updated with patient at the bedside. Copy of page 2 provided. Patient verbalized understanding. Copy in chart initialed, dated and time.
--- NOTE | 2022-05-13 10:51 | P.PN_ITS ---
Subjective Subjective: Failure to 45% today I was told by the RT that at the time ABG was obtained she was not using oxygen at that time when she was hypoxic as per ABG was abnormal today Advised patient endorsing feeling better Afebrile LTAC screening on Saturday Constipation resolved yesterday Vitals/I&O/Wt Last Vital Signs Temp 98.0 F 05/13/22 08:00 Pulse 100 05/13/22 08:27 Resp 14 05/13/22 08:23 BP 138/86 05/13/22 08:00 Pulse Ox 94 05/13/22 08:23 O2 Del Method 05/13/22 08:23 O2 Flow Rate 30 05/13/22 08:23 FiO2 45 05/13/22 08:23 05/12/22 05/13/22 05/13/22 22:59 06:59 14:59 Intake Total 640 / 1240 400 / 1640 480 / 480 Output Total 1450 / 1450 550 / 2000 Balance -810 / -210 -150 / -360 480 / 480 Weight last 48 hrs Weight 87.498 kg Physical Exam Narrative: Patient looks euvolemic Chest sounds better as compared to yesterday less crepitation and crackles Awake and alert Nonfocal neuro exam Afebrile Eating breakfast Abdomen soft And pleasant mood Currently on heated high flow 45% 35 L Urinary Catheter Management: Francois: Cath Placed During This Visit: yes Reason for Continuing Indwelling Catheter: Accurate Measurement of Urinary Output in Critically Ill Patients Urinary Catheter Date of Insertion: 05/08/22 Urinary Catheter Time of Insertion: 19:15 Data : 05/11/22 03:40 05/13/22 04:45 A&P Assessment and plan (1) Sinus tachycardia: (2) COVID: (3) Acute and chronic respiratory failure with hypoxia: (4) Pneumonia: (5) Pulmonary hypertension: (6) Acquired hypothyroidism: (7) Pulmonary fibrosis: (8) Chronic respiratory failure with hypoxia: (9) Seropositive rheumatoid arthritis of multiple sites: (10) Allergic conjunctivitis: (11) Eczema: Plan Acute on chronic hypoxia related to COVID-19 Underlying pulmonary fibrosis COPD and pulmonary hypertension Heated high flow current FiO2 45% 35 L Will need LTAC placement Afebrile Becomes a possible minimal exertion Negative fluid balance Hold off on Lasix today Continue sildenafil Hypertension better on hydralazine, amlodipine regimen Constipation: Resolved Sinus tachycardia no PE or DVT I have kept her on therapeutic Lovenox since admission Anxiety continue Xanax DNR/DNI She has refused remdesivir IV Antibiotics discontinued Currently on levofloxacin empirical coverage Currently regular diet Attestations Medical Necessity Statement*: Patient transferred to [facility] later today versus tomorrow Time Spent in Patient Care: 40 Coding Level of Care Code Acute Lawn Mower for g Fwd Diagnoses Sinus tachycardia R00.0 COVID U07.1 Acute and chronic respiratory failure with hypoxia J96.21 Pneumonia J18.9 Pulmonary hypertension I27.20 Acquired hypothyroidism E03.9 Pulmonary fibrosis J84.10 Chronic respiratory failure with hypoxia J96.11 Seropositive rheumatoid arthritis of multiple sites M05.79 Allergic conjunctivitis H10.10 Eczema L30.9
--- NOTE | 2022-05-13 16:54 | PC.NURSE ---
PT HAS HAD A GOOD SHIFT. PT HAS BEEN SWITCHED TO NASAL CANNULA AND IS DOING WELL WITH THIS. OTHER VITALS REMAIN WNL WITH THE EXCEPTION OF SOME SINUS TACH WHEN EXERTING SELF. PT HAS BEEN UP TO CHAIR MOST OF THE DAY AND HAS DONE WELL WITH THIS. BED BATH WAS COMPLETED BY THIS NURSE AND PT. PT HAS NO OTHER REQUESTS AT THIS TIME. PT DOES NOT COMPLAIN OF ANY PAIN. REPORT CALLED TO [facility] ON MED SURG. THIS NURSE WILL ASSIST TRANSFERRING PT UPSTAIRS.
--- NOTE | 2022-05-13 18:58 | PC.NURSE ---
Report given to Jacqui MATUTE at this time
[2022-05-13 20:45] LABS: Glucose Point of Care 130 mg/dL (70-110)
[2022-05-14] VITALS (14 sets, daily range): BP systolic 120–139; BP diastolic 80–87; PULSE 90–110; RESP 16–18; TEMP 36.4–36.9; O2SAT 86–94
[2022-05-14] MEDS: levalbuterol 1.25 mg/3 mL Neb INHALATION ×4 (02:30→20:00)
[2022-05-14] MEDS: ipratropium 0.5 mg/2.5 mL Neb INHALATION ×4 (02:31→20:00)
[2022-05-14] MEDS: levothyroxine 175 mcg Tablet PO (05:12)
[2022-05-14 05:38] LABS: Basophils # 0.1 10^3/uL (0.0-0.1); Basophils % 0.7 %; Eosinophils % 0.4 %; Hemoglobin 13.7 g/dL (11.5-15.3); Lymphocytes # 0.5 10^3/uL (0.8-4.8); Lymphocytes % 6.6 %; Mean Corpuscular HGB Conc 32.6 g/dL (30.0-36.0); Mean Corpuscular Hemoglobin 29.7 pg (28.0-34.0); Mean Corpuscular Volume 90.9 fl (81-99); Monocytes # 0.6 10^3/uL (0.2-0.9); Monocytes % 7.1 %; Neutrophils # 6.41 10^3/uL (1.8-7.7); Neutrophils % 78.8 %; Nucleated Red Blood Cells % 0 %; Platelet Count 154 10^3/cmm (130-400); Red Blood Count 4.62 10^6/uL (4.1-5.3); Red Cell Distribution Width 14.4 % (12.1-15.1); White Blood Count 8.1 10^3/uL (4.0-10.0)
[2022-05-14 06:02] LABS: Anion Gap 13.7 (5-19); Blood Urea Nitrogen 27 mg/dL (6-20); Calcium 8.9 mg/dL (8.5-10.5); Carbon Dioxide 29 mmol/L (22-29); Chloride 97 mmol/L (98-107); Glomerular Filtration Rate 46.1 mL/min (90-130); Glucose 110 mg/dL (65-115); Osmolality Calculated 288 mOsm/kg (285-295); Potassium 3.7 mmol/L (3.5-5.1); Slide Review Slide Review Perform; Sodium 136 mmol/L (136-145)
[2022-05-14 06:40] LABS: Glucose Point of Care 92 mg/dL (70-110)
[2022-05-14] MEDS: pantoprazole DR 40 mg Tablet PO (08:38)
[2022-05-14] MEDS: levoFLOXacin 750 mg Tablet PO (08:38)
[2022-05-14] MEDS: cetirizine 10 mg Tablet PO (08:38)
[2022-05-14] MEDS: amlodipine 10 mg Tablet PO (08:39)
[2022-05-14] MEDS: dexamethasone 4 mg Tablet 6 MG PO (08:40)
[2022-05-14] MEDS: acetylcysteine 200 mg/mL SDV 4 mL 100 MG INHALATION ×3 (08:57→20:00)
[2022-05-14] MEDS: budesonide 0.5 mg/2 mL Neb INHALATION ×2 (08:57→20:00)
[2022-05-14] MEDS: sennosides-docusate Tablet 1 TAB PO (09:53)
[2022-05-14] MEDS: hyDRALAzine 10 mg Tablet PO ×3 (09:53→20:27)
--- NOTE | 2022-05-14 10:30 | PM.PN ---
Subjective Subjective: This morning patient is on 8 L at rest however she becomes hypoxic on ambulation with minimal exertion Requires more than 10 L At home currently the oxygen company she was prescribed 3 to 6 L of oxygen Afebrile Asking for saline drops, experienced some blood-tinged sputum today Afebrile Cultures negative Vitals/I&O/Wt Last Vital Signs Temp 97.9 F 05/14/22 08:00 Pulse 110 H 05/14/22 09:00 Resp 18 05/14/22 09:00 BP 139/87 05/14/22 08:00 Pulse Ox 90 05/14/22 09:00 O2 Del Method 05/14/22 09:00 O2 Flow Rate 8 05/14/22 09:00 FiO2 45 05/13/22 08:23 05/13/22 05/14/22 05/14/22 22:59 06:59 14:59 Intake Total 480 / 1200 Output Total 1000 / 1000 Balance 480 / 1200 -1000 / 200 Weight last 48 hrs Weight 87.317 kg Physical Exam Narrative: Patient is awake and alert Currently on 8 L nasal cannula Abdomen soft Looks euvolemic No focal deficit Abdomen soft Pleasant cooperative Rhonchi present EOMI, PERRLA Mild conjunctival hyperemia noted Urinary Catheter Management: Francois: Cath Placed During This Visit: yes Reason for Continuing Indwelling Catheter: Accurate Measurement of Urinary Output in Critically Ill Patients Urinary Catheter Date of Insertion: 05/08/22 Urinary Catheter Time of Insertion: 19:15 Data : 05/14/22 04:45 05/14/22 04:45 A&P Assessment and plan (1) Sinus tachycardia: (2) COVID: (3) Acute and chronic respiratory failure with hypoxia: (4) CAP (community acquired pneumonia): (5) Pneumonia: (6) Allergic conjunctivitis: (7) Seropositive rheumatoid arthritis: (8) Pulmonary fibrosis: (9) Seropositive rheumatoid arthritis of multiple sites: (10) COPD (chronic obstructive pulmonary disease): Qualifiers: COPD type: emphysema Emphysema type: unspecified Qualified Code(s): J43.9 - Emphysema, unspecified Plan Persistent hypoxia Patient oxygen requirement has improved Tolerating her diet Constipation resolved as well She will need LTAC however she is requiring 8 L nasal cannula at rest she requires more on ambulation gets hypoxic on minimal exertion She is getting therapeutic Lovenox however no evidence of PE or DVT Sinus tachycardia we will add low-dose beta-partha Add normal saline nasal spray DNR/DNI Regular diet No need to repeat labs for tomorrow Hypertension: Improved Pulmonary hypertension: Continue sildenafil Attestations Medical Necessity Statement*: Continue medical management Time Spent in Patient Care: 40 Coding Level of Care Code Acute Sql Server Dba Developer for Chg Fwd Diagnoses Sinus tachycardia R00.0 COVID U07.1 Acute and chronic respiratory failure with hypoxia J96.21 CAP (community acquired pneumonia) J18.9 Pneumonia J18.9 Allergic conjunctivitis H10.10 Seropositive rheumatoid arthritis M05.9 Pulmonary fibrosis J84.10 Seropositive rheumatoid arthritis of multiple sites M05.79 COPD (chronic obstructive pulmonary disease) J43.9 COPD type: emphysema Emphysema type: unspecified
[2022-05-14 11:16] LABS: Glucose Point of Care 113 mg/dL (70-110)
[2022-05-14] MEDS: NON-FORMULARY MEDICATION (Sildenafil (Pulm.Hypertension) 20 mg tablet) 20 EACH PO ×2 (11:25→20:27)
[2022-05-14] MEDS: enoxaparin 100 mg/mL Syringe 90 MG SUBCUT ×2 (11:32→23:20)
[2022-05-14] MEDS: metoprolol tartrate 25 mg Tablet 12.5 MG PO ×2 (11:32→20:27)
[2022-05-14] MEDS: saline nasal spray 44mL Btl 1 SPRAY NASAL (11:36)
[2022-05-14] MEDS: lactulose oral liq 20 gm/30 mL UDC 10 GM PO (14:42)
[2022-05-14 16:58] LABS: Glucose Point of Care 154 mg/dL (70-110)
[2022-05-14 21:37] LABS: Glucose Point of Care 143 mg/dL (70-110)
[2022-05-14] MEDS: guaiFENesin-dextromethorphan UDC 10 mL PO (23:00)
--- NOTE | 2022-05-14 23:33 | PC.NURSE ---
patient has expressed several times the need to speak with her director security risk management prior to discharge. charge nurse informed, will report to day charge.
[2022-05-15] VITALS (15 sets, daily range): BP systolic 110–138; BP diastolic 67–88; PULSE 61–118; RESP 15–18; TEMP 36.5–36.6; O2SAT 88–96
[2022-05-15] MEDS: ipratropium 0.5 mg/2.5 mL Neb INHALATION ×4 (02:24→20:47)
[2022-05-15] MEDS: acetylcysteine 200 mg/mL SDV 4 mL 100 MG INHALATION ×4 (02:24→20:47)
[2022-05-15] MEDS: levalbuterol 1.25 mg/3 mL Neb INHALATION ×4 (02:24→20:47)
[2022-05-15] MEDS: levothyroxine 175 mcg Tablet PO (05:42)
[2022-05-15 06:51] LABS: Glucose Point of Care 107 mg/dL (70-110)
[2022-05-15] MEDS: budesonide 0.5 mg/2 mL Neb INHALATION ×2 (09:02→20:47)
--- NOTE | 2022-05-15 09:57 | PM.PN ---
Subjective Subjective: Patient is on 11 L She does not want to go to LTAC anymore I did tell her that I want people to discharge her if oxygen requirement is above 10 L She is opening she agreed to go home by Saturday She is asking for stool softeners and refill of oxygen concentrator at the time of discharge I have updated supportive employment case manager Vitals/I&O/Wt Last Vital Signs Temp 97.7 F 05/15/22 04:00 Pulse 100 05/15/22 09:24 Resp 18 05/15/22 09:00 BP 119/67 05/15/22 08:00 Pulse Ox 89 L 05/15/22 09:00 O2 Del Method 05/15/22 09:00 O2 Flow Rate 11 05/15/22 09:00 FiO2 45 05/13/22 08:23 05/14/22 05/15/22 05/15/22 22:59 06:59 14:59 Intake Total 240 / 480 Output Total 1200 / 1200 Balance 240 / 480 -1200 / -720 Weight last 48 hrs Weight 92.261 kg Weight 87.317 kg Physical Exam Narrative: Patient is awake and alert Currently on 11 L high flow nasal cannula Abdomen soft Awake and alert Pleasant and cooperative Cushingoid appearance Pleasant during evaluation Nonfocal neuro exam S1, S2 Urinary Catheter Management: Francois: Cath Placed During This Visit: yes Reason for Continuing Indwelling Catheter: Accurate Measurement of Urinary Output in Critically Ill Patients Urinary Catheter Date of Insertion: 05/08/22 Urinary Catheter Time of Insertion: 19:15 Data : 05/14/22 04:45 05/14/22 04:45 A&P Assessment and plan (1) Sinus tachycardia: (2) COVID: (3) Acute and chronic respiratory failure with hypoxia: (4) Pneumonia: (5) CAP (community acquired pneumonia): (6) Eczema: (7) Pulmonary fibrosis: (8) COPD (chronic obstructive pulmonary disease): Qualifiers: COPD type: emphysema Emphysema type: unspecified Qualified Code(s): J43.9 - Emphysema, unspecified (9) Pulmonary hypertension: (10) Seropositive rheumatoid arthritis of multiple sites: Plan Persistent hypoxia related to COVID-19 with underlying pulmonary fibrosis COPD and pulmonary hypertension Continue sildenafil Acute on chronic hypoxia Currently on high flow nasal cannula She has refused to go to LTAC She wanted to go home until oxygen requirement is below 10 L resource manager forester updated Continue PT, DuoNeb treatment Sinus tachycardia is improved with low-dose metoprolol No signs of PE or DVT Patient is constipated: We will add senna S and lactulose DNR/DNI I will switch her to IV methylprednisolone discontinue Decadron Attestations Medical Necessity Statement*: Discharge by Saturday if oxygen less than 10 L Time Spent in Patient Care: 30 Coding Level of Care Code Acute Machinist Mate for Chg Fwd Diagnoses Sinus tachycardia R00.0 COVID U07.1 Acute and chronic respiratory failure with hypoxia J96.21 Pneumonia J18.9 CAP (community acquired pneumonia) J18.9 Eczema L30.9 Pulmonary fibrosis J84.10 COPD (chronic obstructive pulmonary disease) J43.9 COPD type: emphysema Emphysema type: unspecified Pulmonary hypertension I27.20 Seropositive rheumatoid arthritis of multiple sites M05.79
[2022-05-15] MEDS: pantoprazole DR 40 mg Tablet PO (10:38)
[2022-05-15] MEDS: cetirizine 10 mg Tablet PO (10:38)
[2022-05-15] MEDS: levoFLOXacin 750 mg Tablet PO (10:38)
[2022-05-15] MEDS: amlodipine 10 mg Tablet PO (10:38)
[2022-05-15] MEDS: sennosides-docusate Tablet 1 TAB PO (10:38)
[2022-05-15] MEDS: hyDRALAzine 10 mg Tablet PO ×3 (10:38→20:27)
[2022-05-15] MEDS: metoprolol tartrate 25 mg Tablet 12.5 MG PO ×2 (10:38→20:27)
[2022-05-15] MEDS: NON-FORMULARY MEDICATION (Sildenafil (Pulm.Hypertension) 20 mg tablet) 20 EACH PO ×3 (10:43→20:27)
--- NOTE | 2022-05-15 10:47 | PC.SOCIAL ---
IMM update IMM updated with patient. Copy Pg 2 provided. Initialled, dated, timed, and placed in chart.
[2022-05-15 11:22] LABS: Glucose Point of Care 104 mg/dL (70-110)
--- NOTE | 2022-05-15 14:46 | ECG_ITS ---
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 Measurements Intervals [place] Rate: 111 P: 56 CO: 125 QRS: -16 QRSD: 81 T: 28 QT: 310 QTc: 423 Interpretive Statements SINUS TACHYCARDIA POSSIBLE LEFT ATRIAL ENLARGEMENT [-0.1mV P-WAVE IN V1/V2] Compared to ECG 05/13/2022 06:14:39 Sinus rhythm no longer present Electronically Signed On 05-16-2022 8:25:01 CDT by Marcelino Morales M.D. [id number]
[2022-05-15] MEDS: enoxaparin 100 mg/mL Syringe 90 MG SUBCUT (16:57)
[2022-05-15 17:01] LABS: Glucose Point of Care 140 mg/dL (70-110)
[2022-05-15] MEDS: ALPRAZolam 0.5 mg Tablet PO (22:02)
[2022-05-16] VITALS (10 sets, daily range): BP systolic 111–125; BP diastolic 71–80; PULSE 81–112; RESP 16–18; TEMP 36.4–36.7; O2SAT 88–96
[2022-05-16] MEDS: enoxaparin 100 mg/mL Syringe 90 MG SUBCUT ×2 (00:25→13:14)
[2022-05-16] MEDS: levalbuterol 1.25 mg/3 mL Neb INHALATION ×2 (02:44→08:36)
[2022-05-16] MEDS: ipratropium 0.5 mg/2.5 mL Neb INHALATION ×2 (02:44→08:36)
[2022-05-16] MEDS: acetylcysteine 200 mg/mL SDV 4 mL 100 MG INHALATION ×2 (02:44→08:36)
[2022-05-16] MEDS: levothyroxine 175 mcg Tablet PO (05:49)
[2022-05-16 06:43] LABS: Basophils % 0.3 %; Eosinophils % 0.1 %; Hematocrit 39.8 % (37.0-47.0); Hemoglobin 12.7 g/dL (11.5-15.3); Lymphocytes # 0.4 10^3/uL (0.8-4.8); Lymphocytes % 4.4 %; Mean Corpuscular HGB Conc 31.9 g/dL (30.0-36.0); Mean Corpuscular Hemoglobin 29.7 pg (28.0-34.0); Mean Corpuscular Volume 93.2 fl (81-99); Mean Platelet Volume 12.3 fL (7.4-10.4); Monocytes # 0.2 10^3/uL (0.2-0.9); Monocytes % 2.8 %; Neutrophils # 7.55 10^3/uL (1.8-7.7); Nucleated Red Blood Cells % 0 %; Platelet Count 114 10^3/cmm (130-400); Red Blood Count 4.27 10^6/uL (4.1-5.3); Red Cell Distribution Width 14.6 % (12.1-15.1); White Blood Count 8.6 10^3/uL (4.0-10.0)
[2022-05-16 06:44] LABS: Glucose Point of Care 119 mg/dL (70-110)
[2022-05-16 06:59] LABS: Anion Gap 16.5 (5-19); Blood Urea Nitrogen 26 mg/dL (6-20); Calcium 9.1 mg/dL (8.5-10.5); Carbon Dioxide 25 mmol/L (22-29); Chloride 99 mmol/L (98-107); Glucose 121 mg/dL (65-115); Osmolality Calculated 288 mOsm/kg (285-295); Potassium 4.5 mmol/L (3.5-5.1); Sodium 136 mmol/L (136-145)
[2022-05-16] MEDS: amlodipine 10 mg Tablet PO (08:25)
[2022-05-16] MEDS: hyDRALAzine 10 mg Tablet PO ×2 (08:25→15:17)
[2022-05-16] MEDS: levoFLOXacin 750 mg Tablet PO (08:25)
[2022-05-16] MEDS: metoprolol tartrate 25 mg Tablet 12.5 MG PO (08:26)
[2022-05-16] MEDS: cetirizine 10 mg Tablet PO (08:26)
[2022-05-16] MEDS: pantoprazole DR 40 mg Tablet PO (08:26)
[2022-05-16] MEDS: FUROsemide 40 mg Tablet PO (08:26)
[2022-05-16] MEDS: sennosides-docusate Tablet 1 TAB PO (08:26)
[2022-05-16] MEDS: NON-FORMULARY MEDICATION (Sildenafil (Pulm.Hypertension) 20 mg tablet) 20 EACH PO ×2 (08:27→15:17)
[2022-05-16] MEDS: acetaminophen 500 mg Tablet PO (08:27)
[2022-05-16] MEDS: budesonide 0.5 mg/2 mL Neb INHALATION (08:36)
--- NOTE | 2022-05-16 11:57 | PM.PN ---
Subjective Subjective: Patient is agreeable to go to LTAC She is still on 15 L There is no way she will be able to go home on less oxygen requirement as she becomes severely hypoxic on ambulation and minimal exertion At rest her O2 saturation is barely 91% on 15 L 1 bowel movement yesterday Vitals/I&O/Wt Last Vital Signs Temp 98.0 F 05/16/22 08:00 Pulse 101 H 05/16/22 08:45 Resp 18 05/16/22 08:45 BP 124/80 05/16/22 08:00 Pulse Ox 91 05/16/22 08:45 O2 Del Method 05/16/22 08:45 O2 Flow Rate 15 05/16/22 08:45 FiO2 45 05/13/22 08:23 05/15/22 05/16/22 05/16/22 22:59 06:59 14:59 Intake Total 120 / 120 240 / 240 Output Total 850 / 850 400 / 1250 Balance -730 / -730 -400 / -1130 240 / 240 Weight last 48 hrs Weight 90.804 kg Weight 92.261 kg Physical Exam Narrative: Patient is awake alert Euvolemic Bilateral breath sounds with rhonchi Abdomen soft Awake and alert Emotional labile S1, S2 sinus tachycardia Francois catheter draining dilute urine Appropriate mood and affect Urinary Catheter Management: Francois: Cath Placed During This Visit: yes Reason for Continuing Indwelling Catheter: Accurate Measurement of Urinary Output in Critically Ill Patients Urinary Catheter Date of Insertion: 05/08/22 Urinary Catheter Time of Insertion: 19:15 Data : 05/16/22 05:31 05/16/22 05:31 Micro: Microbiology 05/14/22 14:30 C.difficile Toxin B Gene (PCR) - Final Stool A&P Assessment and plan (1) Sinus tachycardia: (2) COVID: (3) Acute and chronic respiratory failure with hypoxia: (4) Pneumonia: (5) CAP (community acquired pneumonia): (6) Allergic conjunctivitis: (7) Pulmonary fibrosis: (8) Chronic respiratory failure with hypoxia: Plan Persistent hypoxia, currently on heated high flow 50 L COVID-19 with underlying pulmonary fibrosis COPD pulm hypertension Continue sildenafil DuoNeb I have switched her Decadron to IV steroids Discontinue Francois catheter She does become hypoxic on minimal exertion she dropped to 60% as per the PT on ambulation yesterday Francois catheter can be removed DNR/DNI Patient is agreeable to consider LTAC again She wanted to go home like this Did ask her if her son could be able to manage her finances for a while Sinus tachycardia continue low-dose metoprolol No signs of PE or DVT Continue therapeutic Lovenox for now Constipation resolved with bowel regimen Attestations Medical Necessity Statement*: Awaiting LTAC placement Time Spent in Patient Care: 40 Coding Level of Care Code Acute Radio Antenna Installer for Chg Fwd Diagnoses Sinus tachycardia R00.0 COVID U07.1 Acute and chronic respiratory failure with hypoxia J96.21 Pneumonia J18.9 CAP (community acquired pneumonia) J18.9 Allergic conjunctivitis H10.10 Pulmonary fibrosis J84.10 Chronic respiratory failure with hypoxia J96.11
[2022-05-16 11:59] LABS: Glucose Point of Care 120 mg/dL (70-110)
--- NOTE | 2022-05-16 13:41 | P.DS_ITS ---
Discharge Providers Date of Admission: 05/08/22 16:12 Date of Discharge: May 16, 2022 Attending Provider at Admission: Ralph Rivera MD Attending Provider at Discharge: Ralph Rivera MD Primary Care Provider: Italia Perez DO Diagnoses at Discharge Discharge Diagnosis (1) Sinus tachycardia: Status: Acute (2) COVID: Status: Acute (3) Acute and chronic respiratory failure with hypoxia: Status: Acute (4) Pneumonia: Status: Acute (5) CAP (community acquired pneumonia): Status: Acute (6) Allergic conjunctivitis: Status: Chronic (7) Pulmonary fibrosis: Status: Acute (8) Chronic respiratory failure with hypoxia: Status: Acute Reason for Visit Reason for Visit: SOB Hospital Course Hospital Course 56-year female who carries history of pulmonary fibrosis, pulmonary hypertension, COPD on bosentan and sildenafil, uses 3 to 6 L of oxygen at home presented to the hospital for worsening of shortness of breath. Initially she was refusing to get COVID swab however agreed. She tested positive for COVID she was kept in ICU on heated high flow her oxygen requirement fluctuating from 70% to 95% however we were able to wean off from high oxygen requirement to high flow nasal cannula 15 L, initially she was against LTAC however with multiple meetings she finally agreed as she lives alone and want to go to work she is persistently requiring 15 L of oxygen on high flow nasal cannula. No signs of PE or DVT however she remains sinus tachycardic, she was diuresed with Lasix, her sildenafil was continued which is 20 mg 3 times a day we do not have lor sentan here. She was kept on Decadron, she refused remdesivir. She will need some time to recover LTAC has accepted her. She is going to [facility] facility [place]. At the time of discharge she is afebrile, white count 8.6, she had 1 bowel movement contents/11 after bowel regimen, afebrile. Cultures negative to date, creatinine 1.1 Physical Exam Narrative: Patient is awake alert on 15 L high flow nasal cannula Euvolemic Bilateral breath sounds with rhonchi Abdomen soft Awake and alert Emotional labile S1, S2 sinus tachycardia Francois catheter draining dilute urine Appropriate mood and affect Urinary Catheter Management: Francois: Cath Placed During This Visit: yes Reason for Continuing Indwelling Catheter: Accurate Measurement of Urinary Output in Critically Ill Patients Urinary Catheter Date of Insertion: 05/08/22 Urinary Catheter Time of Insertion: 19:15 Discharge Data Studies Completed and Pending Completed Studies During Hospitalization Category Date Time Status CXRP [XR chest 1V portable [id number]] Routine Exams 05/13/22 00:04 Completed XR chest 1V portable [id number] Routine Exams 05/10/22 09:32 Completed XR chest 1V portable [id number] Stat Exams 05/08/22 13:16 Completed US venous duplex lower extremity bilat [CV venous Ultrasound 05/11/22 12:15 [place] [id number]] Routine Pending at discharge Category Date Time Status Arterial Blood Gas W/O Coox AM LABS Lab 05/17/22 04:00 Ordered Aspergillus AG,EIA,Serum Routine Lab 05/14/22 11:22 Received Basic Metabolic Panel AM LABS Lab 05/17/22 04:00 Ordered Complete Blood Count w/Auto AM LABS Lab 05/17/22 04:00 Ordered MRSA by PCR Stat Lab 05/08/22 Received Radiology Impressions Chest X-Ray 05/13/22 00:04 IMPRESSION: 1. No acute findings. 2. Left lower lobe interstitial congestion 3. Stable granuloma left upper lobe Laboratory Results WBC 8.6 10^3/uL (4.0-10.0) 05/16/22 05:31 RBC 4.27 10^6/uL (4.1-5.3) 05/16/22 05:31 Hgb 12.7 g/dL (11.5-15.3) 05/16/22 05:31 Hct 39.8 % (37.0-47.0) 05/16/22 05:31 MCV 93.2 fl (81-99) 05/16/22 05:31 MCH 29.7 pg (28.0-34.0) 05/16/22 05:31 MCHC 31.9 g/dL (30.0-36.0) 05/16/22 05:31 RDW 14.6 % (12.1-15.1) 05/16/22 05:31 Plt Count 114 10^3/cmm (130-400) L 05/16/22 05:31 MPV 12.3 fL (7.4-10.4) H 05/16/22 05:31 Neut % (Auto) 88.0 % 05/16/22 05:31 Lymph % (Auto) 4.4 % 05/16/22 05:31 [place] % (Auto) 2.8 % 05/16/22 05:31 Eos % (Auto) 0.1 % 05/16/22 05:31 Baso % (Auto) 0.3 % 05/16/22 05:31 Neut # (Auto) 7.55 10^3/uL (1.8-7.7) 05/16/22 05:31 Lymph # (Auto) 0.4 10^3/uL (0.8-4.8) L 05/16/22 05:31 [place] # (Auto) 0.2 10^3/uL (0.2-0.9) 05/16/22 05:31 Eos # (Auto) 0.0 10^3/uL (0.0-0.8) 05/16/22 05:31 Baso # (Auto) 0.0 10^3/uL (0.0-0.1) 05/16/22 05:31 Nucleated RBC % (auto) 0 % 05/16/22 05:31 Nucleated RBCs # 0.0 /100WBC 05/16/22 05:31 D-Dimer 2.98 ug/mIFEU (0-0.59) H 05/10/22 05:05 Specimen Type Arterial 05/13/22 04:00 Sample Site Radial, right 05/13/22 04:00 ABG pH 7.50 (7.35-7.45) H 05/13/22 04:00 ABG pCO2 41.3 mmHg (35-45) 05/13/22 04:00 ABG pO2 47.5 mmHg (80.0-100.0) L 05/13/22 04:00 ABG HCO3 32.1 mmol/L (22-26) H 05/13/22 04:00 ABG O2 Saturation 96.0 05/08/22 13:15 ABG Base Excess 8.1 mmol/L (-2.0-2.0) H 05/13/22 04:00 Quirino Test Pos 05/13/22 04:00 A-a O2 Gradient 3.8 mmHg (5-10) L 05/08/22 13:15 Hematocrit 44.1 % (37-47) 05/13/22 04:00 Hgb O2 Saturation 93.9 % (95-100) L 05/08/22 13:15 Carboxyhemoglobin 1.5 %THgb (0.4-20.1) 05/08/22 13:15 Methemoglobin 0.7 % (0.4-1.5) 05/08/22 13:15 Total Hemoglobin 14.4 g/dL (12-16) 05/08/22 13:15 Sodium 142.0 mmol/L (131-143) 05/08/22 13:15 Potassium 4.1 mmol/L (3.5-5.0) 05/08/22 13:15 Glucose 126.0 mg/dL (70-115) H 05/08/22 13:15 Ionized Calcium 1.3 mmol/L (1.1-1.4) 05/08/22 13:15 O2 Delivery Device Nc 05/13/22 04:00 O2 Liters/Min 30.0 % 05/13/22 04:00 FiO2 50.0 % 05/13/22 04:00 Wellness Assistant ID [email or web address] 05/13/22 04:00 Sodium 136 mmol/L (136-145) 05/16/22 05:31 Potassium 4.5 mmol/L (3.5-5.1) 05/16/22 05:31 Chloride 99 mmol/L (98-107) 05/16/22 05:31 Carbon Dioxide 25 mmol/L (22-29) 05/16/22 05:31 Anion Gap 16.5 (5-19) 05/16/22 05:31 BUN 26 mg/dL (6-20) H 05/16/22 05:31 Creatinine 1.1 mg/dL (0.5-0.9) H 05/16/22 05:31 GFR Calculation 51.0 mL/min (90-130) L 05/16/22 05:31 Glucose 121 mg/dL (65-115) H 05/16/22 05:31 POC Glucose 120 mg/dL (70-110) H 05/16/22 11:08 Calculated Osmolality 288 mOsm/kg (285-295) 05/16/22 05:31 Calcium 9.1 mg/dL (8.5-10.5) 05/16/22 05:31 Magnesium 2.4 mg/dL (1.7-2.3) H 05/09/22 03:38 Ferritin 457 ng/mL (15-150) H 05/11/22 03:40 Total Bilirubin 0.5 mg/dL (0.15-1.2) 05/12/22 04:48 AST 16 U/L (0-32) 05/12/22 04:48 ALT 12 U/L (0-33) 05/12/22 04:48 Alkaline Phosphatase 53 U/L (35-105) 05/12/22 04:48 Lactate Dehydrogenase 332 U/L (135-214) H 05/10/22 05:05 Creatine Kinase 145 U/L (26-192) 05/10/22 05:05 Troponin T Gen 5 ng/L 19 ng/L (0-10) H 05/13/22 04:45 Troponin T Baseline 17 ng/L (0-10) H 05/08/22 13:13 Troponin T 120 Minute 14.33 ng/L (0-10) H 05/08/22 15:25 Delta Troponin T -2.67 ABS# (0-10) L 05/08/22 15:25 Troponin T Hi Sens 6Hr 13.49 ng/L (0-10) H 05/08/22 18:59 Troponin T Hi Sens 6Hr Delta -3.51 ng/L (0-12) L 05/08/22 18:59 C-Reactive Protein 26.3 mg/L (0.0-4.9) H 05/11/22 03:40 NT-Pro-B Natriuret Pep 614 pg/mL (0-125) H 05/08/22 13:13 Total Protein 5.9 g/dL (6.6-8.7) L 05/12/22 04:48 Albumin 3.2 g/dL (3.5-5.2) L 05/12/22 04:48 Globulin 2.7 g/dL (1.3-4.6) 05/12/22 04:48 Procalcitonin 0.06 ng/mL (0-0.5) 05/11/22 03:40 TSH 0.13 uIU/mL (0.27-4.20) L 05/08/22 13:13 Urine Color Yellow (Yellow) 05/08/22 16:46 Urine Appearance Clear (CLEAR) 05/08/22 16:46 Urine pH 6.5 (5-7) 05/08/22 16:46 Ur Specific Graham 1.005 (1.005-1.030) 05/08/22 16:46 Urine Protein Neg (Negative) 05/08/22 16:46 Urine Glucose (UA) Norm (Normal) 05/08/22 16:46 Urine Ketones Negative (Negative) 05/08/22 16:46 Urine Blood Neg (Negative) 05/08/22 16:46 Urine Nitrate Negative (Negative) 05/08/22 16:46 Urine Bilirubin Neg (Negative) 05/08/22 16:46 Urine Urobilinogen Norm mg/dL (Negative) 05/08/22 16:46 Ur Leukocyte Esterase Negative (Negative) 05/08/22 16:46 Coronavirus 229E (PCR) Not detected (NOT DETECT) 05/08/22 16:47 A. galactomannan Ag EIA Cancelled 05/10/22 05:05 A. galactomannan Ag Idx Cancelled 05/10/22 05:05 SARS-CoV-2 (PCR) Detected (NOT DETECT) A 05/08/22 16:47 Vitals Last Vital Signs Temp 97.6 F 05/16/22 12:00 Pulse 112 H 05/16/22 12:00 Resp 18 05/16/22 12:00 BP 114/71 05/16/22 12:00 Pulse Ox 88 L 05/16/22 12:00 O2 Del Method 05/16/22 12:00 O2 Flow Rate 15 05/16/22 08:45 FiO2 45 05/13/22 08:23 Discharge Plan Discharge Patient Disposition: Xfer LTC Condition: Stable Prescriptions: Continued Zyrtec 10 mg capsule 10 mg PO DAILY cholecalciferol (vitamin D3) 50 mcg (2,000 unit) tablet 2,000 unit PO DAILY sildenafil (pulm.hypertension) 20 mg tablet 20 mg PO TID 90 Days Qty: 270 6RF furosemide [Lasix] 20 mg tablet 20 mg PO DAILY PRN (Reason: Lower extremity edema) 90 Days Qty: 90 1RF potassium chloride 10 mEq capsule, extended release 10 meq PO DAILY PRN (Reason: Diuretic therapy) 90 Days Qty: 90 0RF Rx Instructions: Please take on days when you take Lasix. triamcinolone acetonide 0.1 % cream 1 applic topical BID Qty: 30 0RF prednisone 10 mg tablet See Rx Instructions PO .COMPLEX PRN (Reason: joint pain) Qty: 30 1RF Rx Instructions: take 1 or 2 tab daily for 3-7 days prn joint pain flare PO PRN; (DME) nebulizer accessories Kit See Rx Instructions .ROUTE .MEDSUPPLY Qty: 2 0RF Rx Instructions: As directed olopatadine 0.2 % drops See Rx Instructions .ROUTE .COMPLEX Qty: 2.5 2RF Dose Instruction: INSTILL 1 DROP IN BOTH EYES EVERY DAY Rx Instructions: INSTILL 1 DROP IN BOTH EYES EVERY DAY albuterol sulfate [Ventolin HFA] 90 mcg/actuation HFA aerosol inhaler 2 puff INHALATION Q6H PRN (Reason: shortness of breath or wheezing) Qty: 8.5 5RF albuterol sulfate 2.5 mg /3 mL (0.083 %) solution for nebulization See Rx Instructions .ROUTE .COMPLEX Qty: 180 1RF Dose Instruction: USE 1 VIAL IN NEBULIZER EVERY 4 HOURS NEEDED FOR SHORTNESS OF BREATH OR WHEEZING Rx Instructions: USE 1 VIAL IN NEBULIZER EVERY 4 HOURS NEEDED FOR SHORTNESS OF BREATH OR WHEEZING Trelegy Ellipta 100-62.5-25 mcg blister with device 1 inh INHALATION Q24H Qty: 60 3RF macitentan 10 mg tablet 10 mg PO DAILY Qty: 30 3RF levothyroxine 175 mcg tablet 175 mcg PO DAILY Rx Instructions: TAKE 1 TABLET BY MOUTH EVERY DAY Discontinued Stress B With Zinc Tablet 1 tab PO DAILY multivitamin Tablet 1 tab PO DAILY prednisone 1 mg tablet See Rx Instructions .ROUTE .COMPLEX Qty: 60 3RF Dose Instruction: TAKE 2 TABLETS BY MOUTH EVERY DAY Rx Instructions: TAKE 2 TABLETS BY MOUTH EVERY DAY azithromycin [Zithromax Z-Deandre] 250 mg tablet See Rx Instructions PO .COMPLEX Qty: 6 0RF Rx Instructions: For 250 mg dose pack: take 500 mg today (day 1), then 250 mg for 4 days (days 2-5) PO Hold Hydroxychloroquin while taking amoxicillin-pot clavulanate 875-125 mg tablet 1 tab PO BID Qty: 20 0RF Discharge Orders: Discharge Order (Routine); Ordered 05/16/22 Ordered By: Ralph Rivera Referrals: Italia Perez DO [Primary Care Provider] - Discharge Attestations Time Spent in Discharge Care*: less than 30 min Quality Metrics Clinical Quality Measures [ No reported AMI, CVA or VTE this stay] Coding Level of Care Code Acute Chg FW DC note Diagnoses Sinus tachycardia R00.0 COVID U07.1 Acute and chronic respiratory failure with hypoxia J96.21 Pneumonia J18.9 CAP (community acquired pneumonia) J18.9 Allergic conjunctivitis H10.10 Pulmonary fibrosis J84.10 Chronic respiratory failure with hypoxia J96.11
--- NOTE | 2022-05-16 14:13 | PC.NURSE ---
Report called to Tara Calderon, RN health supervisor housecleaner, at [facility]. Pt to be transported to room 115 at 1830 per Bakari Fried, clinical coordinator.
[2022-05-16] MEDS: guaiFENesin-dextromethorphan UDC 10 mL PO (15:47)
[2022-05-16 17:09] LABS: Glucose Point of Care 127 mg/dL (70-110)
[2022-05-18 18:32] LABS: Aspergillus AG,EIA,Serum NOT DETECTED; Aspergillus Galactomannan Inde <0.50
== END 2022-05-16 19:30 | DRG 177 ==
LOC: ER 14:18 → ICU 15:44 → MEDSURG 05-13 17:34
PROVIDERS: Student in an Organized Health Care Education/Training Program; Admitting Provider Internal Medicine; Emergency Provider Family Medicine; PCP Family Medicine; Visit Provider Internal Medicine
DX: U07.1 COVID-19 (principal); J18.9 Pneumonia, unspecified organism; J96.21 Acute and chronic respiratory failure with hypoxia; I13.0 Hypertensive heart and chronic kidney disease with heart failure and stage 1 through stage 4 chronic kidney disease, or unspecified chronic kidney disease; I50.30 Unspecified diastolic (congestive) heart failure; N17.9 Acute kidney failure, unspecified; J84.10 Pulmonary fibrosis, unspecified; Z99.81 Dependence on supplemental oxygen; M05.9 Rheumatoid arthritis with rheumatoid factor, unspecified; Z79.52 Long term (current) use of systemic steroids; N18.9 Chronic kidney disease, unspecified; G47.30 Sleep apnea, unspecified; Z85.41 Personal history of malignant neoplasm of cervix uteri; K44.9 Diaphragmatic hernia without obstruction or gangrene; J43.9 Emphysema, unspecified; Z87.891 Personal history of nicotine dependence; E03.9 Hypothyroidism, unspecified; Z79.51 Long term (current) use of inhaled steroids; L30.9 Dermatitis, unspecified; H10.10 Acute atopic conjunctivitis, unspecified eye; K59.00 Constipation, unspecified; Z66 Do not resuscitate; I27.20 Pulmonary hypertension, unspecified; R73.9 Hyperglycemia, unspecified; T38.0X5A Adverse effect of glucocorticoids and synthetic analogues, initial encounter; R19.7 Diarrhea, unspecified
CPT/HCPCS: 36415; 36416; 36600; 51702; 71045; 80048; 80051; 80053; 81003; 82330; 82550; 82728; 82803; 82805; 82962; 83615; 83735; 83880; 84145; 84443; 84484; 85025; 85378; 86140; 87305; 87493; 87635; 87641; 93005; 93970; 94640; 94664; 96365; 96372; 96375; 97110; 97116; 97161; 97165; 97530; 97535; 99285; J0360; J0692; J1100; J1644; J1650; J1815; J1885; J1940; J1956; J2270; J2543; J2920; J7608; J7614; J7626; J7644; J8540

== ENCOUNTER → 2022-09-17 14:25 | Outpatient (BNVA) | payer MEDICARE, MEDICAID, SELFPAY | PROVIDERS: PCP Family Medicine; Visit Provider Internal Medicine Rheumatology | DX: M79.7 Fibromyalgia (principal); Z79.52 Long term (current) use of systemic steroids; I11.0 Hypertensive heart disease with heart failure; I50.9 Heart failure, unspecified; R91.1 Solitary pulmonary nodule; M05.79 Rheumatoid arthritis with rheumatoid factor of multiple sites without organ or systems involvement; Z79.899 Other long term (current) drug therapy; J43.9 Emphysema, unspecified; J84.10 Pulmonary fibrosis, unspecified; I27.20 Pulmonary hypertension, unspecified; Z71.89 Other specified counseling | CPT/HCPCS: 99214 ==

== ENCOUNTER → 2022-11-21 13:27 | Outpatient (BNVA) | payer MEDICARE, MEDICAID, SELFPAY | PROVIDERS: PCP Family Medicine; Visit Provider Internal Medicine Rheumatology | DX: M05.79 Rheumatoid arthritis with rheumatoid factor of multiple sites without organ or systems involvement (principal); Z79.899 Other long term (current) drug therapy; J43.9 Emphysema, unspecified; Z71.89 Other specified counseling; M79.7 Fibromyalgia | CPT/HCPCS: 36415; 80076; 82565; 85025; 86140; 99214 ==

== ENCOUNTER 2023-01-28 10:14 | Outpatient (RCR) | payer MEDICARE, MEDICAID, SELFPAY | END 2023-02-01 23:59 | disposition home or self-care (01) | LOC: PULRHB 10:14 | PROVIDERS: PCP Family Medicine; Visit Provider Family Medicine | DX: J84.10 Pulmonary fibrosis, unspecified (principal) | CPT/HCPCS: G0237; G0238 ==

== ENCOUNTER 2023-02-02 06:00 | Outpatient (RCR) | payer MEDICARE, MEDICAID, SELFPAY | END 2023-03-04 23:59 | disposition home or self-care (01) | LOC: PULRHB 06:00 | PROVIDERS: PCP Family Medicine; Visit Provider Family Medicine | DX: J84.10 Pulmonary fibrosis, unspecified (principal) | CPT/HCPCS: G0237; G0238; G0239 ==

== ENCOUNTER 2023-03-05 06:00 | Outpatient (RCR) | payer MEDICARE, MEDICAID, SELFPAY | END 2023-04-04 23:59 | disposition home or self-care (01) | LOC: PULRHB 06:00 | PROVIDERS: PCP Family Medicine; Visit Provider Family Medicine | DX: J84.10 Pulmonary fibrosis, unspecified (principal) | CPT/HCPCS: G0237; G0238; G0239 ==

== ENCOUNTER → 2023-03-07 08:58 | Outpatient (BNVA) | payer MEDICARE, MEDICAID, SELFPAY | PROVIDERS: PCP Family Medicine; Visit Provider Internal Medicine Pulmonary Disease | DX: I27.20 Pulmonary hypertension, unspecified (principal); Z87.891 Personal history of nicotine dependence; J43.9 Emphysema, unspecified; J96.11 Chronic respiratory failure with hypoxia; J30.89 Other allergic rhinitis; Z99.81 Dependence on supplemental oxygen | CPT/HCPCS: 99214 ==

== ENCOUNTER 2023-03-18 15:03 | Outpatient (CLI) | payer MEDICARE, MEDICAID, SELFPAY ==
--- NOTE | 2023-03-18 15:00 | USCV_ITS ---
Chayito Small Age: 57 Gender: F : 1965 Exam Date: 03/18/2023 15:21 Ordering Phys: Gustabo Otoole MD Technologist: Alba Dumont [place] [facility] [place]: pulmonary hypertension, COPD, SOB BP: 97 / 65 HR: 74 Rhythm: Sinus Technical Quality: Adequate MEASUREMENTS (Male / Female) Normal Values 2D ECHO LV Diastolic Diameter PLAX 4.4 cm 4.2 - 5.9 / 3.9 - 5.3 cm LV Systolic Diameter PLAX 2.7 cm IVS Diastolic Thickness 0.6 cm 0.6 - 1.0 / 0.6 - 0.9 cm IVS Systolic Thickness 2.1 cm LVPW Diastolic Thickness 1.0 cm 0.6 - 1.0 / 0.6 - 0.9 cm LVPW Systolic Thickness 1.6 cm LVOT Diameter 2.2 cm LV Ejection Fraction 2D Teich 69.7 % LV Ejection Fraction MOD 2C 71.2 % LV Ejection Fraction 2C AL 72.3 % LA Diameter 3.7 cm LA Width 3.0 cm LA Height 3.9 cm RA Width 1.9 cm RA Height 4.9 cm Aorta at Sinotubular Diameter 2.8 cm IVC Diameter 0.9 cm M-MODE Aortic Annulus Diameter 2.8 cm LA Ao Ratio MM 1.4 MV E Point Septal Separation 0.2 cm DOPPLER AV Peak Velocity 161.0 cm/s LVOT Peak Velocity 134.0 cm/s AV Area Cont Eq vti 3.4 cm squared AV Area Cont Eq pk 3.1 cm squared MV Peak Velocity 90.0 cm/s MV Area PHT 3.5 cm squared Mitral E to A Ratio 0.8 MV E' Velocity 41.5 cm/s Mitral E to MV E' Ratio 5.0 Mitral E to LV E' Lateral Ratio 4.8 Mitral E to LV E' Septal Ratio 5.3 TR Peak Velocity 284.8 cm/s TR Peak Gradient 32.4 mmHg Right Atrial Pressure 5.0 mmHg Pulmonary Artery Systolic Pressu 37.4 mmHg PV Peak Velocity 131.0 cm/s RV Acceleration Time 0.1 s RV Ejection Time 0.3 s RV AcT/ET 0.5 FINDINGS Left Ventricle Left ventricle is normal size. LV systolic function is normal with EF of 60 to 65%. No regional wall motion abnormalities are seen. Grade 1 diastolic dysfunction Right Ventricle Mildly reduced RV function Right Atrium Normal in size Left Atrium Normal in size Mitral Valve Structurally normal mitral valve. Trace mitral regurgitation Aortic Valve Structurally normal aortic valve. No significant stenosis or regurgitaiton. Tricuspid Valve Mild tricuspid regurgitation. RVSP is 35 to 40 mmHg. Mild pulmonary hypertension. Pulmonic Valve Not well-visualized Pericardium Normal Aorta Normal in size IVC Appears to be normal CONCLUSIONS LV systolic function is normal with EF of 60 to 65%. Grade 1 diastolic dysfunction. Mildly reduced RV function Trace mitral regurgitation Mild tricuspid regurgitation Mild pulmonary hypertension Compared to prior echocardiogram from 2019, patient now has mild pulmonary hypertension Marcelino Morales MD (Electronically Signed) Final Date: 18 March 2023 19:00 S
== END 2023-03-18 15:04 | disposition home or self-care (01) ==
LOC: RAD 15:05
PROVIDERS: PCP Family Medicine; Visit Provider Internal Medicine Pulmonary Disease
DX: R06.02 Shortness of breath (principal); I07.1 Rheumatic tricuspid insufficiency; I27.20 Pulmonary hypertension, unspecified; M05.79 Rheumatoid arthritis with rheumatoid factor of multiple sites without organ or systems involvement; J84.10 Pulmonary fibrosis, unspecified; Z79.899 Other long term (current) drug therapy; J43.9 Emphysema, unspecified; M79.7 Fibromyalgia; I25.2 Old myocardial infarction; I50.9 Heart failure, unspecified; R91.1 Solitary pulmonary nodule; Z87.891 Personal history of nicotine dependence; Z85.41 Personal history of malignant neoplasm of cervix uteri
CPT/HCPCS: 36415; 80076; 82565; 85025; 86140; 93306; 99214

== ENCOUNTER → 2023-03-29 08:44 | Outpatient (BNVA) | payer MEDICARE, MEDICAID, SELFPAY | PROVIDERS: PCP Family Medicine; Visit Provider Internal Medicine Pulmonary Disease | DX: J96.91 Respiratory failure, unspecified with hypoxia (principal); J43.9 Emphysema, unspecified; I27.20 Pulmonary hypertension, unspecified; J30.89 Other allergic rhinitis; Z12.2 Encounter for screening for malignant neoplasm of respiratory organs; Z87.891 Personal history of nicotine dependence; Z99.81 Dependence on supplemental oxygen; G47.33 Obstructive sleep apnea (adult) (pediatric) | CPT/HCPCS: 99214 ==

== ENCOUNTER 2023-03-29 10:19 | Emergency (ER) | payer MEDICARE, MEDICAID, SELFPAY ==
[2023-03-29 10:25] VITALS: BP 129/65; PULSE 121; RESP 16; TEMP 36.5; O2SAT 95; BMI 27.8
--- NOTE | 2023-03-29 10:34 | ECG_ITS ---
[facility] Test Date: 2023-03-29 Pat Name: Chayito Small Department: Room: Gender: Female Prototyper: : 1965 Requested By: Munir Butt Order Number: [id number] Teddy MD: Harmony Montoya M.D. Measurements Intervals [place] Rate: 94 P: 27 MD: 128 QRS: 55 QRSD: 83 T: 59 QT: 323 QTc: 404 Interpretive Statements SINUS RHYTHM POSSIBLE RIGHT VENTRICULAR CONDUCTION DELAY [RSR (QR) IN V1/V2] SEPTAL MYOCARDIAL INFARCTION , OF INDETERMINATE AGE [40+ ms Q WAVE IN V1/V2] Compared to ECG 05/15/2022 17:25:03 Myocardial infarct finding now present Sinus tachycardia no longer present Electronically Signed On 03-29-2023 13:45:08 CDT by Harmony Montoya M.D. [id number]
--- NOTE | 2023-03-29 10:35 | XRR_ITS ---
PROCEDURE INFORMATION: Exam: XR Chest Exam date and time: 03/29/2023 11:59 AM Age: 57 years old Clinical indication: Shortness of breath; Patient HX: HX of cervical cancer; Additional info: Worsening SOB TECHNIQUE: Imaging protocol: Radiologic exam of the chest. Views: 1 view. COMPARISON: CR XR chest 1V portable [id number] 05/13/2022 9:30 AM FINDINGS: Lungs: There are bilateral lower lobe ground-glass infiltrates that have progressed from previous exam and may represent progressive idiopathic interstitial lung disease, inflammatory process such is BOOP or drug induced pulmonary toxicity that would better assessed on CT exam. Upper lung zones remain clear. Pleural spaces: Unremarkable. No pleural effusion. No pneumothorax. Heart/Mediastinum: A and heart is borderline enlarged, unchanged. Bones/joints: Unremarkable for age. XR/XR chest 1V portable [id number] IMPRESSION: Progressive lower lobe ground-glass infiltrates as discussed above better assessed on CT examination of the chest.
[2023-03-29 11:21] VITALS: BP 158/85; PULSE 76; RESP 20; O2SAT 94
[2023-03-29 11:24] LABS: Basophils % 0.7 %; Eosinophils # 0.1 10^3/uL (0.0-0.8); Eosinophils % 1.8 %; Hematocrit 40.9 % (36-47); Lymphocytes # 0.6 10^3/uL (0.8-4.8); Lymphocytes % 10.6 %; Mean Corpuscular HGB Conc 31.8 g/dL (30-55); Mean Corpuscular Hemoglobin 29.6 pg (27-33); Mean Corpuscular Volume 93.2 fl (85-98); Mean Platelet Volume 9.7 fL (7.4-10.4); Monocytes # 0.5 10^3/uL (0.2-0.9); Monocytes % 7.6 %; Neutrophils # 4.69 10^3/uL (1.8-7.7); Neutrophils % 78.6 %; Nucleated Red Blood Cells % 0 %; Platelet Count 282 10^3/cmm (157-399); Red Blood Count 4.39 10^6/uL (3.85-5.65); Red Cell Distribution Width 13.6 % (12.1-15.1); White Blood Count 5.96 10^3/uL (3.29-11.43)
--- NOTE | 2023-03-29 11:27 | PC.NURSE ---
PT IS NORMALLY ON 5 L 02 AT HOME AND STATES IT DOES TAKE A WHILE FOR AT TO COME BACK UP SO SHE DOES NOT WANT US TO RAISE O2 WHEN SHE HAS TO MOVE, PT IS BEING TREATED BY PUMONOLOGIST. PT STATES WHEN SHE IS UP AND WALKING SHE HAS TO BE ON 12L02.
--- NOTE | 2023-03-29 11:28 | ED_ITS ---
HPI - SOB/Dyspnea General: Chief Complaint: Shortness of Breath/Dyspnea Stated Complaint: physician sent, tests and xrays Time Seen by Provider: 03/29/23 11:12 History of Present Illness: HPI Narrative: Patient presents to the ER with complaints of gradual worsening shortness of breath over the last week or 2. Patient states she recently had a history of p neumonia and was discharged from the hospital. Patient has pulmonary hypertension and goes to pulmonary rehab and doing her exercises she normally has to wear 12 L of oxygen but now is although up to 17 L oxygen. Patient also uses 5 L of oxygen at all times at home and is now using 6 L at rest. Patient states anytime she exerts herself her O2 sat drops and now takes longer to get back up to normal. Patient sees Dr. Parkinson critical care educator in [place] and Dr. Jones here. Patient has a diagnosis of severe chronic bullous emphysema and stable interstitial pulmonary fibrosis. She saw Dr. Jones today and he recommended she come here to rule out PE fluid overload and infection. Review of Systems General: Reports: 10 or more systems reviewed and unremarkable except in HPI and below PFSH ED PFSH: Medical History (Updated 03/29/23 @ 14:10 by Thomas Collins DO) Acquired hypothyroidism Acute and chronic respiratory failure with hypoxia Adenocarcinoma of cervix Allergic conjunctivitis CAP (community acquired pneumonia) CHF (congestive heart failure) May use lasix 20 mg when needed for leg swelling. -f/u in 2-3 months. Chronic respiratory failure with hypoxia COPD (chronic obstructive pulmonary disease) COVID Eczema High risk medication use Immunization counseling Pneumonia Pulmonary fibrosis Pulmonary hypertension Seropositive rheumatoid arthritis Seropositive rheumatoid arthritis of multiple sites Sinus tachycardia Suspected 2019-nCoV infection Surgical History H/O emergency section Family History Mother Cancer Lung disease Chronic kidney disease (CKD) Family/Other Cancer Grandfather Cancer Other Rheumatoid arthritis Denies family history of Colon cancer Ovarian cancer Diabetes Heart disease Hypercholesteremia Breast cancer Hypertension Uterine cancer Thyroid disease Stroke Social History Smoking and tobacco status: former smoker Quit status (tobacco): has quit using tobacco Year quit tobacco: 2013 Former quit date comment: 1 ppd X 34 years Physical Exam Const: COMMON NORMALS: no acute distress, average body habitus, patient oriented x3, no limitations, healthy appearing, alert and well nourished HENMT: COMMON NORMALS: normocephalic, atraumatic, hearing grossly normal bilaterally, external ears normal, Normal external nose present and moist oral mucous membranes HEAD & SCALP: normocephalic and atraumatic NOSE: Normal external nose present EXTERNAL EAR: Yes external ears normal Eye: COMMON NORMALS: Equal, round and reactive pupils present, EOMs intact bilaterally, conjunctivae normal and no scleral icterus CONJUNCTIVA: Yes conjunctivae normal PUPIL: Yes Equal, round and reactive pupils present Neck/C-Spine: COMMON NORMALS: full ROM, no lymphadenopathy, supple, no meningeal signs, no JVD and Thyroid normal THYROID: Thyroid normal Lymph: LYMPHATIC: no lymphadenopathy noted and no lymphedema noted Chest: COMMONS NORMALS: normal inspection of the chest and normal palpation of entire chest wall Resp: COMMON NORMALS: normal respiratory effort, No retractions, No use of accessory muscles and clear to auscultation bilaterally AUSCULTATION: clear to auscultation bilaterally Cardio: COMMON NORMALS: no JVD, regular rate, regular rhythm, S1 normal heart sound present, S2 normal heart sound present, No gallops present (Cardio), No clicks present (Cardio), No murmurs present (Cardio) and No rub (Cardio) RATE: regular rate RHYTHM: regular rhythm HEART SOUNDS: S1 normal heart sound present and S2 normal heart sound present GI: COMMON NORMALS: Normal to inspection, nondistended, normoactive bowel sounds present, Soft to palpation, non-tender, No hepatosplenomegaly present and no masses PALPATION: Yes Soft to palpation and Yes No hepatosplenomegaly present : COMMON NORMALS: Yes no CVA tenderness BLADDER/KIDNEY EXAM: Yes no CVA tenderness Back/Pelvis: COMMON NORMALS: no CVA tenderness Extremity: NARRATIVE EXTREMITY EXAM: Trace pretibial edema bilateral lower extremities Neuro: COMMON NORMALS: patient oriented x3 SENSORIUM/ORIENTATION: Yes alert MENINGEAL SIGNS: Yes no meningeal signs Course Vital Signs: Vital signs: Vital Signs Temperature 97.7 F 03/29/23 10:25 Pulse Rate 80 03/29/23 14:24 Respiratory Rate 33 H 03/29/23 12:07 Blood Pressure 119/80 03/29/23 14:24 Pulse Oximetry 94 03/29/23 14:24 Oxygen Delivery Me thod Nasal Cannula 03/29/23 13:00 Oxygen Flow Rate 3 03/29/23 12:07 MDM - SOB/Dyspnea Medical Decision Making Presented to the ER with complaints of worsening shortness of breath over the last several weeks. Patient sees Dr. Jones and critical care educator in [place]. We got blood work on the patient which had an elevated D-dimer we then got a CT angiogram which showed no PE but probable new mass 2.6 x 2.3 cm in the left lower lobe, new compression fractures of T6 and T7 10 and advanced emphysema. These was discussed with the patient in detail and patient will be referred back to Dr. Jones who she will call to set up an appointment with. Differential Diagnosis Likely acute exacerbation of chronic obstructive airways disease; Unlikely congestive heart failure, community acquired pneumonia, asthma with exacerbation or pulmonary embolism Medical Records I reviewed the patient's medical records. Lab Data I reviewed the patient's lab results. 03/29/23 11:17 03/29/23 11:17 Labs/Radiology: Radiology Impressions Chest X-Ray 03/29/23 10:35 IMPRESSION: Progressive lower lobe ground-glass infiltrates as discussed above better assessed on CT examination of the chest. Laboratory Results WBC 5.96 10^3/uL (3.29-11.43) 03/29/23 11:17 RBC 4.39 10^6/uL (3.85-5.65) 03/29/23 11:17 Hgb 13.00 g/dL (11.27-16.99) 03/29/23 11:17 Hct 40.9 % (36-47) 03/29/23 11:17 MCV 93.2 fl (85-98) 03/29/23 11:17 MCH 29.6 pg (27-33) 03/29/23 11:17 MCHC 31.8 g/dL (30-55) 03/29/23 11:17 RDW 13.6 % (12.1-15.1) 03/29/23 11:17 Plt Count 282 10^3/cmm (157-399) 03/29/23 11:17 MPV 9.7 fL (7.4-10.4) 03/29/23 11:17 Neut % (Auto) 78.6 % 03/29/23 11:17 Lymph % (Auto) 10.6 % 03/29/23 11:17 [place] % (Auto) 7.6 % 03/29/23 11:17 Eos % (Auto) 1.8 % 03/29/23 11:17 Baso % (Auto) 0.7 % 03/29/23 11:17 Neut # (Auto) 4.69 10^3/uL (1.8-7.7) 03/29/23 11:17 Lymph # (Auto) 0.6 10^3/uL (0.8-4.8) L 03/29/23 11:17 [place] # (Auto) 0.5 10^3/uL (0.2-0.9) 03/29/23 11:17 Eos # (Auto) 0.1 10^3/uL (0.0-0.8) 03/29/23 11:17 Baso # (Auto) 0.0 10^3/uL (0.0-0.1) 03/29/23 11:17 Nucleated RBC % (auto) 0 % 03/29/23 11:17 Nucleated RBCs # 0.0 /100WBC 03/29/23 11:17 D-Dimer 3.41 ug/mLFEU (0-0.59) H 03/29/23 11:17 Sodium 141 mmol/L (136-145) 03/29/23 11:17 Potassium 4.5 mmol/L (3.5-5.1) 03/29/23 11:17 Chloride 104 mmol/L (98-107) 03/29/23 11:17 Carbon Dioxide 27 mmol/L (22-29) 03/29/23 11:17 Anion Gap 14.5 (5-19) 03/29/23 11:17 BUN 28 mg/dL (6-20) H 03/29/23 11:17 Creatinine 1.1 mg/dL (0.5-0.9) H 03/29/23 11:17 GFR Calculation 50.8 mL/min (90-130) L 03/29/23 11:17 Glucose 104 mg/dL (65-115) 03/29/23 11:17 Calculated Osmolality 298 mOsm/kg (285-295) H 03/29/23 11:17 Calcium 9.3 mg/dL (8.5-10.5) 03/29/23 11:17 Total Bilirubin 0.3 mg/dL (0.15-1.2) 03/29/23 11:17 AST 19 U/L (0-32) 03/29/23 11:17 ALT 13 U/L (0-33) 03/29/23 11:17 Alkaline Phosphatase 52 U/L (35-105) 03/29/23 11:17 NT-Pro-B Natriuret Pep 307 pg/mL (0-125) H 03/29/23 11:17 Total Protein 6.8 g/dL (6.6-8.7) 03/29/23 11:17 Albumin 3.9 g/dL (3.5-5.2) 03/29/23 11:17 Globulin 2.9 g/dL (1.3-4.6) 03/29/23 11:17 Discharge Plan Discharge Patient Disposition: Home Clinical Impression: Lung mass, Pulmonary fibrosis Closed compression fracture of thoracic vertebra Qualifiers: Encounter type: initial encounter Qualified Code(s): S22.000A - Wedge compression fracture of unspecified thoracic vertebra, initial encounter for closed fracture Condition: Stable Prescriptions: No Action cholecalciferol (vitamin D3) 50 mcg (2,000 unit) tablet 2,000 unit PO DAILY triamcinolone acetonide 0.1 % cream 1 applic topical BID Qty: 30 0RF prednisone 1 mg tablet 2 mg PO DAILY Qty: 180 1RF formoterol fumarate 20 mcg/2 mL solution for nebulization 2 ml inhalation BID Qty: 60 3RF prednisone 5 mg tablet See Rx Instructions PO .COMPLEX PRN (Reason: joint pain flare) Qty: 60 1RF Rx Instructions: take 1-2 tabs daily for 3-7 days prn joint pain flare orally PRN; (DME) nebulizer accessories Kit See Rx Instructions .ROUTE .MEDSUPPLY Qty: 2 0RF Rx Instructions: As directed albuterol sulfate [Ventolin HFA] 90 mcg/actuation HFA aerosol inhaler 2 puff INHALATION Q6H PRN (Reason: shortness of breath or wheezing) Qty: 8.5 5RF potassium chloride 10 mEq capsule, extended release 10 meq PO DAILY PRN (Reason: Diuretic therapy) 90 Days Qty: 90 0RF furosemide [Lasix] 20 mg tablet 20 mg PO DAILY PRN (Reason: Lower extremity edema) 90 Days Qty: 90 1RF sildenafil (pulm.hypertension) 20 mg tablet 20 mg PO TID 90 Days Qty: 270 6RF levothyroxine 175 mcg tablet 175 mcg PO DAILY albuterol sulfate 2.5 mg /3 mL (0.083 %) solution for nebulization 2.5 mg inhalation Q4H PRN (Reason: SHORTNESS OF BREATH/WHEEZING) pantoprazole 40 mg tablet,delayed release (DR/EC) 40 mg PO DAILY hydroxychloroquine 200 mg tablet 200 mg PO BID Flonase Allergy Relief 50 mcg/actuation spray,suspension 2 spray intranasal DAILY PRN (Reason: Allergic Symptoms) Rx Instructions: administer into each nostril metoprolol tartrate 25 mg tablet 25 mg PO DAILY PRN (Reason: Blood Pressure) Rinvoq 15 mg tablet extended release 24 hr 15 mg PO DAILY Multi-Vitamin Tablet 1 tab PO DAILY magnesium 250 mg Tablet 250 mg PO DAILY selenium 100 mcg Tablet 100 mcg PO DAILY Stress B Complex/Zinc Tablet 1 tab PO DAILY turmeric 400 mg Capsule 400 mg PO DAILY Airborne Vits Zinc Elderberry 65 mg-3.15 mcg- 3.35 mg-1 mg Tablet,Chewable 1 tab PO DAILY potassium citrate 99 mg Capsule 99 mg PO DAILY curcumin-phosphatidylcholine 500 mg Capsule 500 mg PO DAILY Hair, Skin and Nails (biotin) 10,000 mcg Tablet,Chewable 10,000 mcg PO DAILY ashwagandha extract 120 mg Capsule 120 mg PO DAILY Discharge Orders: Discharge ED (Routine); Ordered 03/29/23 Ordered By: Thomas Collins Referrals: Bam Calvillo MD [Primary Care Provider] - 1 week Patient Instructions: Fractures - Compression Activity Restrictions/Additional Instructions: Please follow-up with Dr. Jones in the next week or sooner as needed for follow- up for further evaluation and treatment of your suspicious lung mass. Please follow-up with your family practice doctor in the next 1 to 2 weeks for further evaluation and treatment of your new compression fractures. Coding Level of Care Code ED Immigration Inspector for Rahul Mata
[2023-03-29 11:46] LABS: D Dimer 3.41 ug/mLFEU (0-0.59)
[2023-03-29 11:50] LABS: Alanine Aminotransferase 13 U/L (0-33); Albumin Level 3.9 g/dL (3.5-5.2); Alkaline Phosphatase 52 U/L (35-105); Anion Gap 14.5 (5-19); Aspartate Amino Transferase 19 U/L (0-32); Blood Urea Nitrogen 28 mg/dL (6-20); Calcium 9.3 mg/dL (8.5-10.5); Carbon Dioxide 27 mmol/L (22-29); Chloride 104 mmol/L (98-107); Globulin 2.9 g/dL (1.3-4.6); Glomerular Filtration Rate 50.8 mL/min (90-130); Glucose 104 mg/dL (65-115); NT Pro B Type Natriuretic Pept 307 pg/mL (0-125); Osmolality Calculated 298 mOsm/kg (285-295); Potassium 4.5 mmol/L (3.5-5.1); Sodium 141 mmol/L (136-145); Total Bilirubin 0.3 mg/dL (0.15-1.2); Total Protein 6.8 g/dL (6.6-8.7)
--- NOTE | 2023-03-29 11:59 | CT_ITS ---
WS: [id number] CTA OF THE CHEST WITH PULMONARY EMBOLISM PROTOCOL TECHNIQUE: High-resolution contrast enhanced CTA of the chest with coronal and sagittal reformatted i mages with pulmonary embolism protocol. MIP images are also reviewed. CLINICAL INFORMATION: elevated d dimer, dyspnea, tachycardia, copd, pulm fibrosis COMPARISON: 2021 DLP: 315.[address] scans at [facility] use at least one of these dose optimization techniques: automated e xposure control; mA and/or kV adjustment per patient size (includes targeted exams where dose is matc hed to clinical indication); or iterative reconstruction. FINDINGS: Cardiomegaly. Advanced chronic emphysematous changes. Interstitial fibrotic thickening in the lung ba ses. Diffuse hazy groundglass infiltrates in both lung bases. Pleural-based mass in the LEFT lower lobe laterally measuring 2.6 x 2.3 cm suspicious for neoplasm. T his is new from previous. Few prominent AP window and LEFT suprahilar lymph nodes. Bronchovascular th ickening about the hilum bilaterally. Proximal main pulmonary arteries are normal. Normal segmental and subsegmental pulmonary arteries. No evidence of pulmonary embolus. Normal caliber thoracic aorta. No axillary lymphadenopathy. Small esophageal hernia. Fatty atrophy of the pancreas. Adrenal glands are normal. Celiac and SMA are patent in the upper abdomen. Compression fractures with anterior wedging at T6 and T10 worse at T10 with a loss of approximately 5 0% vertebral body height centrally. No significant retropulsion at either level. Approximately 30% ve rtebral body height loss T6. Findings are new since 04/30/2022. IMPRESSION: 1. No evidence of pulmonary embolus. 2. Pleural-based mass in the LEFT lower lobe suspicious for neoplasm measuring 2.6 x 2.3 cm. 3. New compression fractures at T6 and T10 described above. Pathologic compression not excluded. 4. Few prominent LEFT AP window and LEFT suprahilar lymph nodes. Prominent peribronchial lymph nodes . 5. Small esophageal hernia. 6. Advanced chronic emphysematous changes with hazy groundglass opacities in both lower lobes with i nterstitial thickening can be seen with interstitial lung disease. Suspected honeycombing in the lung bases. This is similar to previous. Notified Thomas Collins DO at 03/29/2023 1:28 PM.
[2023-03-29 12:07] VITALS: BP 143/70; PULSE 106; RESP 33; O2SAT 90
[2023-03-29] MEDS: iohexol 350 mg/mL 500 mL Btl (per mL) IV (12:57)
[2023-03-29 13:00] VITALS: BP 123/72; PULSE 73; O2SAT 96
[2023-03-29 14:24] VITALS: BP 119/80; PULSE 80; O2SAT 94
== END 2023-03-29 14:25 | disposition home or self-care (01) ==
PROVIDERS: Physician Assistant; Emergency Provider Emergency Medicine; PCP Family Medicine
DX: R91.8 Other nonspecific abnormal finding of lung field (principal); J84.10 Pulmonary fibrosis, unspecified; S22.000A Wedge compression fracture of unspecified thoracic vertebra, initial encounter for closed fracture; X58.XXXA Exposure to other specified factors, initial encounter; J96.91 Respiratory failure, unspecified with hypoxia; J43.9 Emphysema, unspecified; I27.20 Pulmonary hypertension, unspecified; J30.89 Other allergic rhinitis; Z12.2 Encounter for screening for malignant neoplasm of respiratory organs; Z87.891 Personal history of nicotine dependence; Z99.81 Dependence on supplemental oxygen; G47.33 Obstructive sleep apnea (adult) (pediatric)
CPT/HCPCS: 71045; 71046; 71275; 80053; 83880; 85025; 85378; 93005; 99214; 99285; Q9967

== ENCOUNTER 2023-04-05 06:00 | Outpatient (RCR) | payer MEDICARE, MEDICAID, SELFPAY | END 2023-05-04 23:59 | disposition home or self-care (01) | LOC: PULRHB 06:00 | PROVIDERS: PCP Family Medicine; Visit Provider Family Medicine | DX: J84.10 Pulmonary fibrosis, unspecified (principal) | CPT/HCPCS: G0237; G0238 ==

== ENCOUNTER 2023-04-20 05:35 | Outpatient (CLI) | payer MEDICARE, MEDICAID, SELFPAY ==
--- NOTE | 2023-04-20 09:00 | PETR_ITS ---
PROCEDURE INFORMATION: Exam: PET/CT Skull Base to Mid-thigh Exam date and time: 04/20/2023 10:00 AM Age: 57 years old Clinical indication: Abnormal findings; Progressive lower lobe ground-glass infiltrates as discussed above better. Assessed on CT examination of the chest. Patient HX: HX of cervical cancer; Additional info: Lung mass LABS AND CLINICAL REPORTS: Glucose: 93 mg/dl Treatment strategy for malignancy (PET staging): Initial Staging (PI) TECHNIQUE: Imaging protocol: Following at least four-hour fasting and following the injection of radiopharmaceutical, low dose CT images were obtained. Then, PET images were obtained. Attenuation corrected images were constructed using the CT scan. Fused images of PET and CT were reviewed. The standardized uptake values (SUV) reported below are maximum values within a region of interest, expressed in gm/ml. Exam includes orbital meatal line to mid-thigh. Radiopharmaceutical: 12 mCi F-18 FDG (Fluorodeoxyglucose), IV. Time of imaging post radiopharmaceutical administration: 1 hour Injection site: Right antecubital COMPARISON: CTA chest 03/29/2023, CT abdomen and pelvis 03/05/2019, PT PET Scan 07/26/2018 8:55 AM FINDINGS: Limitations: Motion artifact. Brain: Visualized brain has normal physiologic uptake. Pharynx: No abnormal uptake. Larynx: No abnormal uptake. Lungs, pleura and trachea: A left upper lobe calcified granuloma is present. Extensive bilateral centrilobular emphysematous changes. A solid appearing noncalcified left lower lobe nodule adjacent to the pleural surface the lateral left lower lobe measures 2.6 x 2.5 cm on series 3, image 62, SUV max 6.4. Mild hazy density in the lower lobes is present which may be exaggerated by respiratory motion artifact. Heart: Normal physiologic uptake. Mediastinal space: No abnormal uptake. Liver: No abnormal uptake. Gallbladder and bile ducts: No abnormal uptake. Pancreas: No abnormal uptake. Spleen: No abnormal uptake. Adrenal glands: No abnormal uptake. Kidneys and ureters: Normal physiologic uptake. Stomach and bowel: No abnormal uptake. Vasculature: No abnormal uptake. Lymph nodes: No abnormal uptake. Previously noted mild prominence aortopulmonary window lymph nodes and lymph nodes within the pericardial fat along the anterior left lateral aspect of the heart appears slightly decreased. For example a left lateral aortopulmonary window currently measures 1.1 x 0.8 cm on series 3, image 45 (previously measuring 1.4 x 0.8 cm). Bones/joints: No abnormal uptake in the visualized axial and appendicular skeleton. Similar moderate T6 and T10 vertebral body compression fractures without significant uptake. Soft tissues: There is benign-appearing elevated muscular uptake for example in the dorsal paraspinous musculature of the thoracic spine and in the right subscapularis muscle. METRICS: Mediastinal blood pool: SUV max 2.2 [facility] [id number] IMPRESSION: 1. A radiotracer avid left lower lobe nodule is present (SUV max 6.4) concerning for possible malignancy. 2. No additional areas of radiotracer avid malignancy. 3. Slight interval decrease in prominence of lymph nodes in the aortopulmonary window and pericardial fat. None of these lymph nodes are radiotracer avid. 4. Similar moderate T6 and T10 vertebral body compression fractures. 5. Extensive bilateral centrilobular emphysematous changes. Ill-defined hazy density in the lower lobes is also present which may represent mild pneumonitis or pulmonary vascular congestion. This appearance may be exaggerated by respiratory motion artifact. 6. Additional nonurgent findings as detailed above.
== END 2023-04-20 05:36 | disposition home or self-care (01) ==
LOC: RAD 04-22 05:35
PROVIDERS: PCP Family Medicine; Visit Provider Internal Medicine Pulmonary Disease
DX: R91.1 Solitary pulmonary nodule (principal); R91.8 Other nonspecific abnormal finding of lung field; Z85.41 Personal history of malignant neoplasm of cervix uteri
CPT/HCPCS: 78815; A9552

== ENCOUNTER 2023-04-25 12:47 | Outpatient (CLI) | payer MEDICARE, MEDICAID, SELFPAY ==
[2023-04-25 13:23] VITALS: PULSE 96; RESP 20; O2SAT 91
[2023-04-25 13:27] VITALS: PULSE 103
[2023-04-25] MEDS: albuterol 2.5 mg/3 mL Neb INHALATION (13:27)
--- NOTE | 2023-04-25 13:56 | XR_ITS ---
WS: [id number] SCREENING DEXA SCAN [facility] [facility] CLINICAL INFORMATION: COMPRESSION FX OF TSPINE COMPARISON: None. FINDINGS: The L1-L4 bone mineral density measures 0.859 g/cm2. This corresponds to a T score score of -2.7 and Z score of -1.8. Left femoral neck bone mineral density measures 0.682 g/cm2. This corresponds to a T score of -2.6 an d Z score of -1.9. Right femoral neck bone mineral density measures 0.674 g/cm2. This corresponds to a T score -2.6of an d Z score of -1.9. Mean femoral neck bone mineral density measures 0.678 g/cm2. This corresponds to a T score of -2.6 an d Z score of -1.9. IMPRESSION: Osteoporosis femoral necks and lumbar spine. Patient's FRAX calculated 10 year probability for major osteoporotic fracture is 61.8% and osteoporot ic hip fracture is 13.3%.
== END 2023-04-25 12:48 | disposition home or self-care (01) ==
LOC: RT 12:49
PROVIDERS: PCP Family Medicine; Visit Provider Internal Medicine Pulmonary Disease
DX: S22.000D Wedge compression fracture of unspecified thoracic vertebra, subsequent encounter for fracture with routine healing (principal); Z87.891 Personal history of nicotine dependence; M84.68XA Pathological fracture in other disease, other site, initial encounter for fracture; M81.0 Age-related osteoporosis without current pathological fracture; X58.XXXD Exposure to other specified factors, subsequent encounter
CPT/HCPCS: 77080; 94060; 94726; 94729; J7613

== ENCOUNTER 2023-05-05 06:00 | Outpatient (RCR) | payer MEDICARE, MEDICAID, SELFPAY | END 2023-06-04 23:59 | disposition home or self-care (01) | LOC: PULRHB 06:00 | PROVIDERS: PCP Family Medicine; Visit Provider Family Medicine | DX: J84.10 Pulmonary fibrosis, unspecified (principal) | CPT/HCPCS: G0237; G0238; G0239 ==

== ENCOUNTER → 2023-07-16 12:27 | Outpatient (BNVA) | payer MEDICARE, MEDICAID, SELFPAY | PROVIDERS: PCP Family Medicine; Visit Provider Internal Medicine Rheumatology | DX: M05.79 Rheumatoid arthritis with rheumatoid factor of multiple sites without organ or systems involvement (principal); J84.10 Pulmonary fibrosis, unspecified; J43.9 Emphysema, unspecified; Z71.89 Other specified counseling | CPT/HCPCS: 36415; 80076; 82565; 85025; 86140; 99214 ==

== ENCOUNTER → 2023-07-17 09:57 | Outpatient (BNVA) | payer MEDICARE, MEDICAID, SELFPAY | PROVIDERS: PCP Family Medicine; Visit Provider Internal Medicine Pulmonary Disease | DX: R91.1 Solitary pulmonary nodule (principal); J96.21 Acute and chronic respiratory failure with hypoxia; J43.9 Emphysema, unspecified; J30.89 Other allergic rhinitis; Z12.2 Encounter for screening for malignant neoplasm of respiratory organs; Z87.891 Personal history of nicotine dependence; Z79.51 Long term (current) use of inhaled steroids; Z79.52 Long term (current) use of systemic steroids | CPT/HCPCS: 99214 ==

== ENCOUNTER 2023-07-23 10:16 | Outpatient (CLI) | payer MEDICARE, MEDICAID, SELFPAY ==
--- NOTE | 2023-07-23 10:30 | CTR_ITS ---
PROCEDURE INFORMATION: Exam: CT Chest Without Contrast; Diagnostic Exam date and time: 07/23/2023 10:36 AM Age: 58 years old Clinical indication: Abnormal findings; Abnormal radiologic exam of lung or chest; Patient HX: HX of cervical cancer; Additional info: 4 month f/u TECHNIQUE: Imaging protocol: Diagnostic computed tomography of the chest without contrast. Radiation optimization: All CT scans at this facility use at least one of these dose optimization techniques: automated exposure control; mA and/or kV adjustment per patient size (includes targeted exams where dose is matched to clinical indication); or iterative reconstruction. REPORTING DATA: Count of CT and Cardiac NM exams in prior 12 months: This patient has received 2 known CTs and 0 known cardiac nuclear medicine studies in the 12 months prior to the current study. COMPARISON: CT angio chest PE protcl [id number] 03/29/2023 12:55 PM RADIATION DOSE METRICS: Total DLP (mGy-cm): 264.35 FINDINGS: Thyroid: No thyroid pathology in the imaged anatomy. Lungs: Severe pulmonary emphysema and areas of peripheral basilar interstitial reticulation again noted. Traction bronchiectasis in the lower lobes again noted. Findings compatible with honeycombing in the lower lobes again noted. Pleural spaces: Interval enlargement of a nodule at the pleural surface of the left lower lobe laterally currently measuring 3.4 x 2.7 cm as measured on series 4, image 36 compared with 2.7 x 2.3 cm a similar level on the prior study. No pleural effusion. Heart: Unremarkable. No cardiomegaly. No pericardial effusion. Coronary arteries: Coronary artery calcifications. Lymph nodes: No lymphadenopathy. Vasculature: No evidence of thoracic aortic aneurysm. Diaphragm: Small hiatal hernia. Intraperitoneal space: No significant pathology in the imaged upper abdomen. Bones/joints: Unchanged T6 and T10 vertebral fractures. Soft tissues: Unremarkable. Other findings: Evaluation limited by motion artifacts. CT/CT chest wo con [id number] IMPRESSION: 1. Interval increase in left lower lobe nodule most likely representing metastasis. 2. No other new or increasing pathology.
== END 2023-07-23 10:17 | disposition home or self-care (01) ==
PROVIDERS: PCP Family Medicine; Visit Provider Internal Medicine Pulmonary Disease
DX: R91.1 Solitary pulmonary nodule (principal); Z85.41 Personal history of malignant neoplasm of cervix uteri
CPT/HCPCS: 71250

== ENCOUNTER 2023-09-04 09:00 | Oncology outpatient (recurring) (ONCR) | payer MEDICARE, MEDICAID, SELFPAY ==
--- NOTE | 2023-08-12 09:59 | N.ONRAD NP_ITS ---
Radiation Oncology New Patient Visit Patient: Chayito Small MR#: [id number] : 1965> Age: 58> Sex: Female> Dictated by: Dr. Niharika Etienne Date of Service: 08/12/2023 Referring Physician(s) : Dr. Dino Mckeon Diagnosis: R91.1 Solitary lung mass unable to biopsy secondary to severe COPD and pulmonary hypertension C53.9 - malignant neoplasm of cervix uteri, unspecified, Diagnosed 07/16/2018 (active), stage x, t2, nx, mx. Radiotherapy to date: Course: Cervix, Treatment Site: Cervix 45Gy, Ref. ID: [id number], Energy: 15X, Dose/Fx (cGy): 180, #Fx: 25 / 25, Dose Correction (cGy): 0, Total Dose (cGy): 4,500, Start Date: 08/19/2018, End Date: 09/23/2018, Elapsed Days: 35 Treatment Site: Boost PTV50.4, Ref. ID: [id number], Energy: 6X, Dose/Fx (cGy): 180, #Fx: 3 / 3, Dose Correction (cGy): 0, Total Dose (cGy): 540, Start Date: 09/24/2018, End Date: 09/26/2018, Elapsed Days: 2 Treatment Site: Boost PTV54P, Ref. ID: [id number], Energy: 6X, Dose/Fx (cGy): 180, #Fx: 2 / 2, Dose Correction (cGy): 0, Total Dose (cGy): 360, Start Date: 09/29/2018, End Date: 09/30/2018, Elapsed Days: 1 Treatment Site: [id number], Ref. ID: [id number], Energy: 6X, Dose/Fx (cGy): 200, #Fx: 3 / 3, Dose Correction (cGy): 0, Total Dose (cGy): 600, Start Date: 10/01/2018, End Date: 10/03/2018 Elapsed Days: 2Summary > No prior radiation therapy. Chief Complaint / History of Present Illness: Patient has recently been found to have a mass in the left lower lobe. She had scans in the fall which consisted of a PET scan. This did show positive uptake in this area and no other areas of abnormality. She has significant bullous COPD along with pulmonary hypertension. It was felt that a biopsy would result in catastrophic pulmonary failure. She was recommended at that time to have treatment done. Apparently she declined. Since that time she has had a repeat CT scan and the mass has increased in size. She is here today to discuss radiation for the mass. She does not have any hemoptysis. Respiratory status remains quite tenuous. She is on 5 to 8 L at all times and her pulse ox will drop into the 70s when she moves around at all. Current Medications: Actemra, albuterol Sulfate, aloxi, b Complex, cARBOplatin, cholecalciferol, dexamethasone Sodium Phosphate, hydroxychloroquine Sulfate, lasix, levothyroxine Sodium, lORazepam, magnesium Gluconate, mucus Relief DM, nystatin, pataday, potassium Chloride ER, predniSONE, prochlorperazine Maleate, sildenafil Citrate, trelegy Ellipta, ventolin HFA. Allergies: Percodan and Cephalexin. Medical History: Chronic obstructive pulmonary disease, coronary artery disease, dependent on supplemental oxygen, depression, emphysema, fibromyalgia, history of myocardial infarction, hypothyroidism, post menopausal, pulmonary fibrosis, pulmonary hypertension, rheumatoid arthritis, trigeminal neuralgia. No history of collagen vascular disease. No previous radiation therapy. Surgical History: Caesarean section in 1994 and cervical biopsy. Family History: Father is alive having experienced heart disease. Mother is alive having experienced breast cancer. Aunt is having experienced Breast Cancer. Maternal Grandfather is having experienced pancreatic cancer. Maternal Cousin is having experienced Brain Cancer. Social History: Last screened on 03/11/2019 - Yes - but has quit for 9 years. Smoked 1.0 pack/day for 30 years (30 pack years). Last screened on 01/28/2019 - Never drank. Current Complaints / Review of Systems: . Vital Signs: Performed on 08/12/2023 9:11 AM BMI - 27.025 kg/m2 (high), Height - 65 in, Weight - 162.4 lbs, Temperature - 97.7 f, Pulse - 104 /min (high), Respiration - 22 /min (high), O2 Sat - 93 % (low), Pain - 2, Fatigue - 0 and BP - 102/ 52 mm(hg)(/low). Physical Exam: General: Patient is in no apparent distress with several tanks of oxygen HEENT: Normocephalic atraumatic. Pupils are equal, sclera clear, extraocular muscles intact Chest: Respiratory rate is regular nonlabored. Lungs decreased breath sounds throughout all philippe Cardiovascular: Regular rate and rhythm Abdomen: Fairly flat. Patient has lost over 60 pounds. Extremities: No clubbing cyanosis or edema noted Skin: Warm and dry without ecchymoses Neurological: Alert and oriented x 3. Gait and speech within normal limits. Psychological: Normal affect for current situation. Performance Status: ECOG 3 Pathology: Primary, c53.9 - malignant neoplasm of cervix uteri, unspecified, Diagnosed 07/16/2018 (active) stage x, t2, nx, mx. Imaging: See HPI Impression: Lung mass most likely non-small cell carcinoma with lung in a patient with severe COPD and pulmonary hypertension Plan: I reviewed with her at this time that the mass had increased in size. It had significant PET uptake in April. We talked about how a biopsy would be more dangerous than anything. She understood that. And she was in agreement. We talked about the use of radiation in her case. We also reviewed how critical it was to minimize her lung tissue with the treatment. Since the mass is little bit bigger than the standard stereotactic mass I did recommend that we proceed with a slightly more protracted course of 3 weeks duration. I reviewed with her the simulation process. We discussed the risks and side effects of the radiation both acute and long-term. She is familiar with the process because she has had previous treatment for her cervical cancer. I reviewed with her that if we carefully designed the philippe to minimize the amount of lung tissue she should not notice any side effects during the course of treatment. At this point she is agreed to proceed. She will undergo simulation later this week and will begin her treatments next week. Signed by: 08/12/2023 9:58:35 AM <<Signature on File>> Time spent with patient:60 CPT Code: CPT Code:
--- NOTE | 2023-08-27 13:41 | ONCRAD TMN_ITS ---
Radiation Oncology Weekly Treatment Management Patient: Chayito Small MR#: [id number] : 1965 Attending Physician: Dr. Niharika Etienne Date of Service: 08/27/2023 Fractions: 1 out of 15 Referring Physician(s) : Dr. Dino Mckeon Diagnosis: R91.1 - Solitary pulmonary nodule, Diagnosed 07/23/2023 (Active) C53.9 - Malignant neoplasm of cervix uteri, unspecified, Diagnosed 07/16/2018 (Active) Stage X, T2, NX, MX Radiotherapy to date: Course: LT Lung 2023, Treatment Site: LT Lung 45Gy, Ref. ID: [id number], Energy: 15X, Dose/Fx (cGy): 300, #Fx: , Dose Correction (cGy): 0, Total Dose (cGy): 300, Start Date: 08/27/2023, Elapsed Days: 0 Reason for visit: The patient is being seen today as part of their regularly scheduled weekly on treatment visits to assess for acute toxicities from radiotherapy. Review of Systems: Patient has noticed no changes or issues. She did have problems with her humidifier last night and her oxygen level was quite low all night. She awoke this morning with a headache. She is remedied the knob on the humidifier and her oxygen is now running 91. Vital Signs: Performed on 08/27/2023 1:10 PM BMI ??? 26.892 kg/m2 (high), Height - 65 in, Weight ??? 161.6 lbs, Temperature - 97.6 f, Pulse - 89 /min, Respiration - 16 /min, O2 Sat - 91 %, Pain - 3, Fatigue - 2 and BP - 113/ 74 mm(hg)(high/). Physical Exam: No changes noted Imaging: Radiation therapy imaging related to accurate target localization (i.e. KV, MV and CBCT) was reviewed. Appropriate changes, if any, were made to ensure treatment accuracy. Plan: Will continue with her treatments as planned. She had no additional questions today. Signed by: Dr. Niharika Etienne 08/27/2023 2:55:56 PM
--- NOTE | 2023-09-03 13:35 | ONCRAD TMN_ITS ---
Radiation Oncology Weekly Treatment Management Patient: Chayito Small MR#: [id number] : 1965> Attending Physician: Michael Soto Date of Service: 09/03/2023 Referring Physician(s) : Dr. Dino Mckeon Diagnosis: R91.1 - Solitary pulmonary nodule, Diagnosed 07/23/2023 (Active) C53.9 - Malignant neoplasm of cervix uteri, unspecified, Diagnosed 07/16/2018 (Active) Stage X, T2, NX, MX Radiotherapy to date: Course: LT Lung 2023, Treatment Site: LT Lung 45Gy, Ref. ID: [id number], Energy: 15X, Dose/Fx (cGy): 300, #Fx: 5 / 15, Dose Correction (cGy): 0, Total Dose (cGy): 1,500, Start Date: 08/27/2023, Elapsed Days: 7 Reason for visit: The patient is being seen today as part of their regularly scheduled weekly on treatment visits to assess for acute toxicities from radiotherapy. Review of Systems: Patient is on continuous O2 by nasal cannula. She reports severe COPD but denies current shortness of breath, cough, or hemoptysis. She denies any difficulty sleeping and reports that her appetite remains good. She has no difficulty swallowing. She reports a history of cervix cancer diagnosed in 2018 also. Vital Signs: Performed on 09/03/2023 12:51 PM BMI - 26.626 kg/m2 (high), Height - 65 in, Weight - 160 lbs, Temperature - 97 f, Pulse - 86 /min, Respiration - 16 /min, O2 Sat - 95 % (low), Pain - 0, Fatigue - 0 and BP - 102/ 65 mm(hg). Physical Exam: Alert and oriented female appearing her stated age. She has oxygen by nasal cannula. Skin in the treatment area is intact without erythema or desquamation. Lungs clear to auscultation bilaterally. Cardiovascular exam reveals regular rhythm. Patient ambulatory by wheelchair. Imaging: Radiation therapy imaging related to accurate target localization (i.e. KV, MV and CBCT) was reviewed. Appropriate changes, if any, were made to ensure treatment accuracy. Plan: Patient is tolerating her radiation therapy well with minimal radiation related side effects. Plan to continue prescribed treatment. Signed by: Michael Soto 09/03/2023 1:33:19 PM
== END 2023-09-04 23:59 | disposition home or self-care (01) ==
PROVIDERS: PCP Family Medicine; Visit Provider Radiology Radiation Oncology
DX: Z51.0 Encounter for antineoplastic radiation therapy (principal); R91.1 Solitary pulmonary nodule; C53.9 Malignant neoplasm of cervix uteri, unspecified; Z99.81 Dependence on supplemental oxygen; J44.9 Chronic obstructive pulmonary disease, unspecified
CPT/HCPCS: 77290; 77295; 77300; 77334; 77387; 77412; 99024; 99205

== ENCOUNTER 2023-09-17 12:41 | Oncology outpatient (recurring) (ONCR) | payer MEDICARE, MEDICAID, SELFPAY ==
--- NOTE | 2023-09-10 13:33 | ONCRAD TMN_ITS ---
Radiation Oncology Weekly Treatment Management Patient: Chayito Small MR#: [id number] : 1965 Attending Physician: Dr. Niharika Etienne Date of Service: 09/10/2023 Fractions: 10 of 15 to the lung Referring Physician(s) : Dr. Dino Mckeon Diagnosis: R91.1 - Solitary pulmonary nodule, Diagnosed 07/23/2023 (Active) C53.9 - Malignant neoplasm of cervix uteri, unspecified, Diagnosed 07/16/2018 (Active) Stage X, T2, NX, MX Radiotherapy to date: Course: LT Lung 2023, Treatment Site: LT Lung 45Gy, Ref. ID: [id number], Energy: 15X, Dose/Fx (cGy): 300, #Fx: , Dose Correction (cGy): 0, Total Dose (cGy): 3,000, Start Date: 08/27/2023, Elapsed Days: 14 Reason for visit: The patient is being seen today as part of their regularly scheduled weekly on treatment visits to assess for acute toxicities from radiotherapy. Review of Systems: Patient remains completely asymptomatic Vital Signs: Performed on 09/10/2023 1:25 PM BMI - 26.992 kg/m2 (high), Height - 65 in, Weight - 162.2 lbs, Temperature - 97.8 f, Pulse - 76 /min, Respiration - 20 /min, O2 Sat - 96 %, Pain - 0, Fatigue - 0 and BP - 109/ 70 mm(hg). Physical Exam: Patient is sitting comfortably in her wheelchair with oxygen in place Imaging: Radiation therapy imaging related to accurate target localization (i.e. KV, MV and CBCT) was reviewed. Appropriate changes, if any, were made to ensure treatment accuracy. Plan: Will continue with her treatments as planned. She will be finished with her treatments next week. Signed by: Dr. Niharika Etienne 09/10/2023 1:31:44 PM
== END 2023-10-03 23:59 | disposition home or self-care (01) ==
PROVIDERS: PCP Family Medicine; Visit Provider Radiology Radiation Oncology
DX: Z51.0 Encounter for antineoplastic radiation therapy (principal); R91.1 Solitary pulmonary nodule; C53.9 Malignant neoplasm of cervix uteri, unspecified
CPT/HCPCS: 77014; 77336; 77387; 77412; 99024

== ENCOUNTER 2023-10-16 08:51 | Oncology outpatient (recurring) (ONCR) | payer MEDICARE, MEDICAID, SELFPAY ==
--- NOTE | 2023-10-16 09:43 | XRR_ITS ---
PROCEDURE INFORMATION: Exam: XR Chest Exam date and time: 10/16/2023 10:08 AM Age: 58 years old Clinical indication: Shortness of breath; Patient HX: HX of lung and cervical cancer TECHNIQUE: Imaging protocol: Radiologic exam of the chest. Views: 2 views. COMPARISON: CT chest con [id number] 07/23/2023 10:36 AM FINDINGS: Lungs: There is prominent chronic interstitial fibrosis involving both lower lung philippe. I see no new area of infiltrate or mass effect. Pleural spaces: Unremarkable. No pleural effusion. No pneumothorax. Heart/Mediastinum: Unremarkable. No cardiomegaly. Bones/joints: Unremarkable. XR/XR chest 2V* [id number] IMPRESSION: Chronic interstitial fibrosis with no acute change noted
--- NOTE | 2023-10-16 09:53 | ONCRAD EPV_ITS ---
Radiation Oncology Established Patient Visit Patient: Chayito Small [id number] : 1965 Age: 58 Sex: Female Dictated by: Michael Soto Date of Service: 10/16/2023 Referring Physician(s) : Dr. Dino Mckeon Diagnosis: R91.1 - Solitary pulmonary nodule, Diagnosed 07/23/2023 (Active) C53.9 - Malignant neoplasm of cervix uteri, unspecified, Diagnosed 07/16/2018 (Active) Stage X, T2, NX, MX Cervical cancer Mrs. Small is a 53-year-old female with multiple medical problems including advanced stage COPD for which she is on oxygen supplement; history of pulmonary hypertension and with right heart failure. She is wheelchair-bound. She presented in February 2018 with a history of postmenopausal bleeding and was evaluated by [employer]- Dr. Mckeon. She was found to have cauliflower-like cervical mass. 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 Dr. Mckeon's plan was to refer her to [employer] oncologist in [place] but patient refused and now as per his evaluation she has inoperable cervical cancer, so chemoradiation was suggested. MRI of the pelvis on 07/11/2018 showed a 5.3 by 7 x 7.3 cm soft tissue mass interposed between bladder and the rectum with no evidence of bladder or rectal invasion. There was no definite lymphadenopathy. She underwent PET/CT for staging on 07/26/2018. It showed a 7.5 x 6.5 cm cervical mass with SUV of 28.2 which demonstrates inhomogeneous uptake suggesting areas of necrosis. There were scattered pelvic lymph nodes that were FDG negative but too small to reliably characterize. There was an 8 mm left upper lobe lingual nodule with an SUV of 2.6 concerning for metastatic disease. Also noted was activity in the GE junction with an SUV of 7.2 which could be inflammatory or malignant-further evaluation with endoscopy is recommended. It is noted that she's had significant weight loss of 60 pounds over the past year. Mrs. Small has been offered treatment with combined therapy with chemotherapy/radiation. Her chemotherapy will consist of weekly carboplatin. She began her first treatment on August 19, 2018. She does has a history of heartburn/indigestion attributing to her medications. She is on methotrexate and hydroxyquinoline for chronic arthritis prescribed by Dr. Kevin Nelson, parking analyst. Patient completed her combined chemoradiation with weekly carboplatin, last dose of chemotherapy was on 09/16/2018, post chemoradiation brachytherapy was under consideration but patient declined. Now considering surgical evaluation .Patient was referred to [facility] oncology, [facility] where she saw Dr salinas on 12/05/2018 and as per her recommendation patient was not a candidate for surgery because of her comorbid conditions rather she recommended CT PET scan in case patient has metastatic disease then consider chemotherapy with avastin. Patient came for follow-up denies any specific complaints, no nausea vomiting, no fever no chills no vaginal bleeding no pelvic pain, appetite is good.Follow-up CT scan of abdomen pelvis done on 03/05/2019 showed chronic emphysema with bibasilar interstitial fibrosis Stable subpleural lingular nodule. Suggest CT scan chest follow-up in 6 months Mild distal esophageal wall thickening that was FDG positive on 07/26/2018 Resolved previous bulky cervical neoplasm, no evidence of residual neoplasm, local or regional spread of disease. Patient underwent EGD on 08/27/2018 which showed at esophageal cardia, small hiatal hernia without obstruction or gangrene was present the hiatal narrowing was 40 cm from the teeth , otherwise unremarkable Came for follow-up, denies any specific complaints, tolerating physical therapy well, denies any vaginal bleeding, denies any pelvic pain, denies any hemoptysis or hematemesis, denies any weight loss, denies any poor appetite. Radiotherapy to Date: Course: Cervix, Treatment Site: Cervix 45Gy, Ref. ID: [id number], Energy: 15X, Dose/Fx (cGy): 180, #Fx: 25 / 25, Dose Correction (cGy): 0, Total Dose Delivered (cGy): 4,500, Start Date: 08/19/2018, End Date: 09/23/2018, Elapsed Days: 35 Cervix, Treatment Site: Boost PTV50.4, Ref. ID: [id number], Energy: 6X, Dose/Fx (cGy): 180, #Fx: 3 / 3, Dose Correction (cGy): 0, Total Dose Delivered (cGy): 540, Start Date: 09/24/2018, End Date: 09/26/2018, Elapsed Days: 2 Cervix, Treatment Site: Boost PTV54P, Ref. ID: [id number], Energy: 6X, Dose/Fx (cGy): 180, #Fx: 2 / 2, Dose Correction (cGy): 0, Total Dose Delivered (cGy): 360, Start Date: 09/29/2018, End Date: 09/30/2018, Elapsed Days: 1 Cervix, Treatment Site: [id number], Ref. ID: [id number], Energy: 6X, Dose/Fx (cGy): 200, #Fx: 3 / 3, Dose Correction (cGy): 0, Total Dose Delivered (cGy): 600, Start Date: 10/01/2018, End Date: 10/03/2018, Elapsed Days: 2 LT Lung 2023, Treatment Site: LT Lung 45Gy, Ref. ID: [id number], Energy: 15X, Dose/Fx (cGy): 300, #Fx: 15 / 15, Dose Correction (cGy): 0, Total Dose Delivered (cGy): 4,500, Start Date: 08/27/2023, End Date: 09/17/2023, Elapsed Days: 21 Current History: Current Medications: Actemra, albuterol Sulfate, aloxi, b Complex, cARBOplatin, cholecalciferol, dexamethasone Sodium Phosphate, hydroxychloroquine Sulfate, lasix, levothyroxine Sodium, lORazepam, magnesium Gluconate, mucus Relief DM, nystatin, pataday, potassium Chloride ER, predniSONE, prochlorperazine Maleate, sildenafil Citrate, trelegy Ellipta, ventolin HFA. Allergies: Percodan and Cephalexin. Current Complaints / Review of Systems: . Patient is seen in follow-up today approximately 1 month after completion of 45 [place] external beam radiation therapy delivered to the left lung at 300 cGy per fraction over 15 fractions. She is on oxygen via nasal cannula and reports that she is normally on 4 L/min. If she requires any increased activity she needs to increase her oxygen. She has a pulse oximeter at home and reports that her current oxygen saturations have been diminished over the past 4 to 6 weeks. She has occasional postnasal drip. She denies any excessive cough or productive sputum. She has no complaints of fever or chills. She denies difficulty sleeping. She reports a history of pneumonia that required 6 days of hospitalization in the [facility] and was transferred to [place] where she remained in the pulmonary hospital for a number of weeks. She was considered for transfer to more specialized pulmonary hospital out of state for specialized pulmonary rehab but preferred to come home. She is being followed by a senior benefits specialist in [place] and had a recent telehealth visit. She states that she does not want a PET scan due to the time involved and effort that causes extreme fatigue. Vital Signs: Performed on 10/16/2023 9:02 AM BMI - 26.293 kg/m2 (high), Height - 65 in, Weight - 158 lbs, Temperature - 96.5 f, Pulse - 86 /min, Respiration - 18 /min, O2 Sat - 87 % (low), Pain - 0, Fatigue - 0 and BP - 91/ 57 mm(hg)(/low). Physical Exam: General: Alert and oriented x 3. No acute distress. HEENT: Normocephalic, atraumatic. Extraocular Movements Intact: Pupils Equal, Round, Reactive to Light and Accommodation: Sclerae anicteric. Oral cavity is clear without lesions, masses or ulcers. Patient has oxygen by nasal cannula. NECK: Supple without supraclavicular or jugular lymphadenopathy. LUNGS: Clear to auscultation bilaterally without rales, rhonchi or wheeze. HEART: Regular rate and rhythm, normal S1 and S2 without murmur, gallop or rub. MUSCULOSKELETAL: No tenderness or percussion pain over the axial skeleton, scapulae or pelvis. ABDOMEN: Soft, nontender, nondistended without masses or organomegaly. Bowel sounds are present. EXTREMITIES: No peripheral edema is identified. Limited motor and sensory examination are grossly intact and symmetric bilaterally. NEUROLOGIC: Cranial nerves II ???XII are grossly intact. Normal sensation, strength 5/5 in all extremities, normal gait, no ataxia. Performance Status: Lab: None pending. Pathology: Primary, r91.1 - solitary pulmonary nodule, Diagnosed 07/23/2023 (active) and Primary, c53.9 - malignant neoplasm of cervix uteri, unspecified, Diagnosed 07/16/2018 (active) stage x, t2, nx, mx. Imaging: See HPI Impression: The patient is recovering well from the acute effects of her external beam radiation therapy for a solitary lung nodule. Her lung function is compromised. I am ordering a chest x-ray to rule out any pleural effusion or pneumonia. The patient has been instructed to continue follow-up with her senior benefits specialist and to seek immediate medical attention if her breathing worsens. Signed by: 10/16/2023 9:52:11 AM <<Signature on File>> Time spent with patient: 30 minutes CPT Code: CPT Code:
== END 2023-11-03 23:59 | disposition home or self-care (01) ==
LOC: ONCMED 08:52
PROVIDERS: PCP Family Medicine; Visit Provider Radiology Radiation Oncology
DX: R91.1 Solitary pulmonary nodule (principal); C53.9 Malignant neoplasm of cervix uteri, unspecified; R06.02 Shortness of breath
CPT/HCPCS: 71046; 99024

== ENCOUNTER 2023-11-18 11:02 | Outpatient (CLI) | payer MEDICARE, MEDICAID, SELFPAY ==
[2023-11-18 12:13] LABS: Basophils % 0.6 %; Eosinophils # 0.1 10^3/uL (0.0-0.8); Eosinophils % 1.3 %; Lymphocytes # 0.5 10^3/uL (0.8-4.8); Lymphocytes % 8.7 %; Mean Corpuscular HGB Conc 31.2 g/dL (30-55); Mean Corpuscular Hemoglobin 30.1 pg (27-33); Mean Corpuscular Volume 96.6 fl (85-98); Mean Platelet Volume 10.2 fL (7.4-10.4); Monocytes # 0.5 10^3/uL (0.2-0.9); Monocytes % 8.3 %; Neutrophils % 79.8 %; Nucleated Red Blood Cells % 0 %; Platelet Count 255 10^3/cmm (157-399); Red Blood Count 4.35 10^6/uL (3.85-5.65); White Blood Count 5.39 10^3/uL (3.29-11.43)
[2023-11-18 12:35] LABS: Alanine Aminotransferase 15 U/L (0-33); Albumin Level 3.8 g/dL (3.5-5.2); Alkaline Phosphatase 55 U/L (35-105); Aspartate Amino Transferase 24 U/L (0-32); Globulin 2.7 g/dL (1.3-4.6); Glomerular Filtration Rate 50.7 mL/min (90-130); Total Bilirubin 0.4 mg/dL (0.15-1.2); Total Protein 6.5 g/dL (6.6-8.7)
== END 2023-11-18 11:03 | disposition home or self-care (01) ==
LOC: LAB 11:04
PROVIDERS: PCP Family Medicine; Visit Provider Internal Medicine Rheumatology
DX: M05.79 Rheumatoid arthritis with rheumatoid factor of multiple sites without organ or systems involvement (principal); Z79.899 Other long term (current) drug therapy; R91.1 Solitary pulmonary nodule; J96.21 Acute and chronic respiratory failure with hypoxia; J43.9 Emphysema, unspecified; J30.89 Other allergic rhinitis
CPT/HCPCS: 36415; 80076; 82565; 85025; 86140; 99214

== ENCOUNTER → 2023-12-20 07:51 | Outpatient (BNVA) | payer MEDICARE, MEDICAID, SELFPAY | PROVIDERS: PCP Family Medicine; Visit Provider Nurse Practitioner Family | DX: L91.8 Other hypertrophic disorders of the skin (principal); L85.8 Other specified epidermal thickening; L57.8 Other skin changes due to chronic exposure to nonionizing radiation; L57.0 Actinic keratosis; L21.8 Other seborrheic dermatitis; D22.62 Melanocytic nevi of left upper limb, including shoulder | CPT/HCPCS: 11200; 17000; 99204 ==

== ENCOUNTER 2023-12-24 11:59 | Emergency (ER) | payer MEDICARE, MEDICAID, SELFPAY ==
[2023-12-24] VITALS (9 sets, daily range): BP systolic 120–132; BP diastolic 75–88; PULSE 73–98; RESP 16–30; TEMP 36.4; O2SAT 69–100; BMI 25.4
--- NOTE | 2023-12-24 12:16 | XRR_ITS ---
PROCEDURE INFORMATION: Exam: XR Chest Exam date and time: 12/24/2023 12:21 PM Age: 58 years old Clinical indication: Shortness of breath TECHNIQUE: Imaging protocol: Radiologic exam of the chest. Views: 1 view. COMPARISON: CR XR chest 2V* [id number] 10/16/2023 10:08 AM FINDINGS: Lungs: Left basilar consolidation. Chronic interstitial changes in the bilateral lung bases. Pleural spaces: Moderate left pleural effusion. Heart/Mediastinum: No cardiomegaly. Bones/joints: Unremarkable. XR/XR chest 1V portable [id number] IMPRESSION: 1. Moderate left pleural effusion. 2. Chronic interstitial fibrosis.
--- NOTE | 2023-12-24 12:17 | ED_ITS ---
HPI - SOB/Dyspnea 2 General: Chief Complaint: Shortness of Breath/Dyspnea Stated Complaint: sob Time Seen by Provider: 12/24/23 12:12 History of Present Illness: HPI Narrative: 58-year-old female with a history of chr onic lung disease/COPD, CHF, pulmonary hypertension, rheumatoid arthritis, and chronic hypoxemic respiratory failure on 4 L nasal cannula at all time. She presents to the emergency room with worsening shortness of breath and hypoxemia. She had increased her oxygen to 6 L at home. On her tank she can only get about [address] Her O2 sats in the waiting room or in the 60s. She was placed on a nonrebreather and oxygen saturations have come up. No fevers. No chest pain. No abdominal pain. No nausea or vomiting. This is been going on for few days now. Review of Systems 2 Narrative: Constitutional symptoms: Negative except as documented in HPI. Skin symptoms: Negative except as documented in HPI. Eye symptoms: Negative except as documented in HPI. ENMT symptoms: Negative except as documented in HPI. Respiratory symptoms: Negative except as documented in HPI. Cardiovascular symptoms: Negative except as documented in HPI. Gastrointestinal symptoms: Negative except as documented in HPI. Genitourinary symptoms: Negative except as documented in HPI. Musculoskeletal symptoms: Negative except as documented in HPI. Neurologic symptoms: Negative except as documented in HPI. Psychiatric symptoms: Negative except as documented in HPI. Endocrine symptoms: Negative except as documented in HPI. PFSH ED 2 PFSH: Medical History Sinus tachycardia COVID Acute and chronic respiratory failure with hypoxia Pneumonia Suspected 2019-nCoV infection CAP (community acquired pneumonia) Eczema Allergic conjunctivitis Seropositive rheumatoid arthritis of multiple sites Chronic respiratory failure with hypoxia Immunization counseling Pulmonary fibrosis High risk medication use Seropositive rheumatoid arthritis COPD (chronic obstructive pulmonary disease) CHF (congestive heart failure) May use lasix 20 mg when needed for leg swelling. -f/u in 2-3 months. Pulmonary hypertension Adenocarcinoma of cervix Acquired hypothyroidism Surgical History H/O emergency section Family History Mother Cancer Lung disease Chronic kidney disease (CKD) Family/Other Cancer Grandfather Cancer Other Rheumatoid arthritis Denies family history of Colon cancer Ovarian cancer Diabetes Heart disease Hypercholesteremia Breast cancer Hypertension Uterine cancer Thyroid disease Stroke Social History Smoking and tobacco/nicotine status: former use of tobacco/nicotine Quit status (tobacco/nicotine): has quit using Year quit tobacco: 2012 Former quit date comment: 1 ppd X 34 years Physical Exam 2 Narrative: EXAM NARRATIVE: General: Alert, moderate distress. Skin: Warm, dry. Head: Normocephalic, atraumatic. Neck: Supple, trachea midline. Eye: Extraocular movements are intact. Ears, nose, mouth and throat: Oral mucosa moist. Cardiovascular: Regular rate and rhythm, Normal peripheral perfusion. Respiratory: coarse, scattered wheeze, moderate increased wob. tachypnea, prolonged expiratory phase. breath sounds are equal, Symmetrical chest wall expansion. Gastrointestinal: Soft, Nontender, Non distended, Normal bowel sounds. Musculoskeletal: Normal ROM, no deformity. Neurological: Alert and oriented to person, place, time, and situation, No focal neurological deficit observed. Psychiatric: Cooperative, appropriate mood & affect. Course 2 Vital Signs: Vital signs: Vital Signs Temperature 97.6 F 12/24/23 12:03 Pulse Rate 98 12/24/23 15:40 Respiratory Rate 18 12/24/23 15:00 Blood Pressure 132/84 12/24/23 15:00 Pulse Oximetry 94 12/24/23 15:40 Oxygen Delivery Me thod Nasal Cannula 12/24/23 12:39 Oxygen Flow Rate 6 12/24/23 12:39 MDM - SOB/Dyspnea Medical Decision Making Differential diagnosis for patient with shortness of breath includes but is not limited to and based on the above HPI, review of systems and physical exam: Pneumonia. Bronchitis. Asthma or COPD with acute exacerbation. Acute coronary syndrome / [place]. Pulmonary embolism. Anxiety. Congestive heart failure. Viral infections including influenza and Covid-19. Atrial fibrillation. Anxiety. Pleural effusion. Pneumothorax. Workup: Lab work, chest X-ray and EKG ordered to evaluate, rule in and rule out above pathologies Lab Review: Laboratory results were reviewed and interpreted by myself the emergency room physician. White count is 6.3. Hemoglobin is 15. BUN and creatinine are 24 and 1.0. proBNP is not significantly elevated. Troponin is not significantly elevated. ABG 7.4 2/62 and 91% O2 sat on a nonrebreather. With 100% FiO2 EKG: Time 1219 rate 79 normal sinus rhythm, No ST-T changes, no ectopy, incomplete right bundle branch block, This was reviewed and interpreted by myself the ER physician at 1222 Repeat EKG: Time 1356 rate 76 normal sinus rhythm, No ST-T changes, no ectopy, normal NE & QRS intervals, This was reviewed and interpreted by myself the ER physician at 1356. No changes from previous. Chest x-ray: Chronic scarring in the right lower lung. There is a new large left pleural effusion. This was reviewed and interpreted by myself the ER physician. I reviewed the patient's medical record. Prolonged emergency room stay: Dr. Jones was consulted and came to the emergency room to do an ultrasound and evaluate for inpatient versus outpatient therapy. I spoke with him at 1415. Consultation: I spoke with Dr. Jones. He feels the patient is not a candidate for thoracentesis at this time. He did an ultrasound at the bedside. He recommends home with her normal oxygen requirements. She does have very high requirements when she walks which was demonstrated while she was here. He recommends Lasix at 20 mg, potassium replacement, antibiotics, and steroid burst. I have ordered these. Reexamination: Patient says she feels quite a bit better after steroids and breathing treatment. Her work of breathing has improved quite a bit and she is now back on 6 L nasal cannula. No altered mental status. No focal motor deficits. She requested to talk with Dr. Jones who had sent her to the emergency room today when she had called saying she was requiring more oxygen. Assessment and plan: Acute on chronic hypoxemic respiratory failure COPD with acute exacerbation Pleural effusion -IV Solu-Medrol and multiple updrafts in the emergency room. -Pulmonary consultation. Follow the recommendations. -Patient is back to her baseline oxygen requirements at 6 L at baseline and very high flow with exertion. - Discharged home - Discussed findings and plan with patient. Answered any questions. - All laboratory values were reviewed and interpreted personally by myself, the ER physician - All imaging was reviewed and interpreted personally by myself, the ER physician. - Evaluation and treatment of this problem were appropriate in the emergency setting Lab Data 12/24/23 12:19 12/24/23 12:19 Labs/Radiology: Radiology Impressions Chest X-Ray 12/24/23 12:16 IMPRESSION: 1. Moderate left pleural effusion. 2. Chronic interstitial fibrosis. Laboratory Results WBC 6.33 10^3/uL (3.29-11.43) 12/24/23 12:19 RBC 5.01 10^6/uL (3.85-5.65) 12/24/23 12:19 Hgb 15.00 g/dL (11.27-16.99) 12/24/23 12:19 Hct 47.3 % (36-47) H 12/24/23 12:19 MCV 94.4 fl (85-98) 12/24/23 12:19 MCH 29.9 pg (27-33) 12/24/23 12:19 MCHC 31.7 g/dL (30-55) 12/24/23 12:19 RDW 14.1 % (12.1-15.1) 12/24/23 12:19 Plt Count 315 10^3/cmm (157-399) 12/24/23 12:19 MPV 10.0 fL (7.4-10.4) 12/24/23 12:19 Neut % (Auto) 83.2 % 12/24/23 12:19 Lymph % (Auto) 7.1 % 12/24/23 12:19 [place] % (Auto) 7.4 % 12/24/23 12:19 Eos % (Auto) 0.9 % 12/24/23 12:19 Baso % (Auto) 0.6 % 12/24/23 12:19 Neut # (Auto) 5.26 10^3/uL (1.8-7.7) 12/24/23 12:19 Lymph # (Auto) 0.5 10^3/uL (0.8-4.8) L 12/24/23 12:19 [place] # (Auto) 0.5 10^3/uL (0.2-0.9) 12/24/23 12:19 Eos # (Auto) 0.1 10^3/uL (0.0-0.8) 12/24/23 12:19 Baso # (Auto) 0.0 10^3/uL (0.0-0.1) 12/24/23 12:19 Nucleated RBC % (auto) 0 % 12/24/23 12:19 Nucleated RBCs # 0.0 /100WBC 12/24/23 12:19 Specimen Type Arterial 12/24/23 12:27 Sample Site Radial, right 12/24/23 12:27 ABG pH 7.42 (7.35-7.45) 12/24/23 12:27 ABG pCO2 42.9 mmHg (35-45) 12/24/23 12:27 ABG pO2 61.7 mmHg (80.0-100.0) L 12/24/23 12:27 ABG HCO3 28.1 mmol/L (22-26) H 12/24/23 12:27 ABG O2 Saturation 92.5 12/24/23 12:27 ABG Base Excess 3.2 mmol/L (-2.0-2.0) H 12/24/23 12:27 Quirino Test Pos 12/24/23 12:27 A-a O2 Gradient 4.4 mmHg (5-10) L 12/24/23 12:27 Hematocrit 41.8 % (37-47) 12/24/23 12:27 Hgb O2 Saturation 91.0 % (95-100) L 12/24/23 12:27 Carboxyhemoglobin 1.6 %THgb (0.4-20.1) 12/24/23 12:27 Methemoglobin 0.1 % (0.4-1.5) L 12/24/23 12:27 Total Hemoglobin 13.7 g/dL (12-16) 12/24/23 12:27 Sodium 143.0 mmol/L (131-143) 12/24/23 12:27 Potassium 3.8 mmol/L (3.5-5.0) 12/24/23 12:27 Glucose 104.0 mg/dL (70-115) 12/24/23 12:27 Ionized Calcium 1.2 mmol/L (1.1-1.4) 12/24/23 12:27 O2 Delivery Device Nc 12/24/23 12:27 O2 Liters/Min 2.0 % 12/24/23 12:27 Door Slinger ID [place] 12/24/23 12:27 Sodium 143 mmol/L (136-145) 12/24/23 12:19 Potassium 4.0 mmol/L (3.5-5.1) 12/24/23 12:19 Chloride 103 mmol/L (98-107) 12/24/23 12:19 Carbon Dioxide 29 mmol/L (22-29) 12/24/23 12:19 Anion Gap 15.0 (5-19) 12/24/23 12:19 BUN 24 mg/dL (8-23) H 12/24/23 12:19 Creatinine 1.0 mg/dL (0.5-0.9) H 12/24/23 12:19 GFR Calculation 56.6 mL/min (90-130) L 12/24/23 12:19 Glucose 110 mg/dL (65-115) 12/24/23 12:19 Calculated Osmolality 301 mOsm/kg (285-295) H 12/24/23 12:19 Calcium 9.5 mg/dL (8.5-10.5) 12/24/23 12:19 Total Bilirubin 0.4 mg/dL (0.15-1.2) 12/24/23 12:19 AST 20 U/L (0-32) 12/24/23 12:19 ALT 11 U/L (0-33) 12/24/23 12:19 Alkaline Phosphatase 54 U/L (35-105) 12/24/23 12:19 Troponin T Baseline 18 ng/L (0-10) H 12/24/23 12:19 Troponin T 120 Minute 13.74 ng/L (0-10) H 12/24/23 14:28 Delta Troponin T -4.26 ABS# (0-10) L 12/24/23 14:28 C-Reactive Protein 20.3 mg/L (0.0-4.9) H 12/24/23 12:19 NT-Pro-B Natriuret Pep 565 pg/mL (0-125) H 12/24/23 12:19 Total Protein 6.5 g/dL (6.6-8.7) L 12/24/23 12:19 Albumin 3.9 g/dL (3.5-5.2) 12/24/23 12:19 Globulin 2.6 g/dL (1.3-4.6) 12/24/23 12:19 All radiology interpretation(s) finalized by discharge Discharge Plan Discharge Patient Disposition: Home Clinical Impression: Asthma with exacerbation, Pleural effusion, Acute on chronic respiratory failure with hypoxemia Condition: Stable Prescriptions: New doxycycline hyclate 100 mg capsule 100 mg PO BID 7 Days Qty: 14 0RF prednisone 20 mg tablet 60 mg PO DAILY 5 Days Qty: 15 0RF Lasix 20 mg tablet 20 mg PO DAILY Qty: 10 0RF potassium chloride 20 mEq tablet extended release 20 meq PO DAILY Qty: 10 0RF No Action cholecalciferol (vitamin D3) 50 mcg (2,000 unit) tablet 2,000 unit PO DAILY prednisone 5 mg tablet See Rx Instructions PO .COMPLEX PRN (Reason: joint pain flare) Qty: 60 1RF Rx Instructions: take 1-2 tabs daily for 3-7 days prn joint pain flare orally PRN; (DME) nebulizer accessories Kit See Rx Instructions .ROUTE .MEDSUPPLY Qty: 2 0RF Rx Instructions: As directed potassium chloride 10 mEq capsule, extended release 10 meq PO DAILY PRN (Reason: Diuretic therapy) 90 Days Qty: 90 0RF furosemide [Lasix] 20 mg tablet 20 mg PO DAILY PRN (Reason: Lower extremity edema) 90 Days Qty: 90 1RF sildenafil (pulm.hypertension) 20 mg tablet 20 mg PO TID 90 Days Qty: 270 6RF albuterol sulfate [Ventolin HFA] 90 mcg/actuation HFA aerosol inhaler 2 puff INHALATION Q6H PRN (Reason: shortness of breath or wheezing) Qty: 8.5 5RF azelastine-fluticasone 137-50 mcg/spray spray,non-aerosol 1 spray intranasal BID Qty: 23 3RF Rx Instructions: administer into each nostril hydroxychloroquine 200 mg tablet 200 mg PO BID Qty: 60 3RF Rinvoq 15 mg tablet extended release 24 hr 15 mg PO DAILY Qty: 30 3RF albuterol sulfate 2.5 mg /3 mL (0.083 %) solution for nebulization 2.5 mg inhalation Q4H PRN (Reason: SHORTNESS OF BREATH/WHEEZING) metoprolol tartrate 25 mg tablet 25 mg PO DAILY multivitamin [Multi-Vitamin] Tablet 1 tab PO DAILY magnesium 250 mg Tablet 500 mg PO DAILY potassium citrate 99 mg Capsule 99 mg PO DAILY curcumin-phosphatidylcholine 500 mg Capsule 500 mg PO DAILY Hair, Skin and Nails (biotin) 10,000 mcg Tablet,Chewable 10,000 mcg PO DAILY ashwagandha extract 120 mg Capsule 120 mg PO DAILY levothyroxine 150 mcg tablet 150 mcg PO DAILY ketoconazole 2 % shampoo See Rx Instructions .ROUTE .COMPLEX Rx Instructions: Apply TO SCALP and face two TO three times PER week and allow TO sit FIVE minutes before rinsing cetirizine 10 mg tablet 10 mg PO DAILY lisinopril 20 mg tablet 20 mg PO DAILY prednisone 1 mg tablet 1 mg PO DAILY aloe vera 25 mg Capsule 25 mg PO TID valerian root 450 mg Capsule 450 mg PO DAILY [place] Nasal 0.65 % Aerosol,[place] 2 spray INTRANASAL QID PRN (Reason: Nasal Congestion) NAC 600 mg Capsule 600 mg PO DAILY Beet Root 500 mg PO DAILY PRN (Reason: unknown) Capsimax 150 mg PO DAILY PRN (Reason: supplement) Discharge Orders: Discharge ED (Routine); Ordered 12/24/23 Ordered By: Yamel Patel Referrals: Bam Calvillo MD [Primary Care Provider] - Datar,Gustabo Buck MD [Physician] - 7-10 days (Please call for follow-up appointment) Discharge Diet: Usual diet Discharge Activity: Increase activity as tolerated Patient Instructions: COPD (Chronic Obstructive Pulmonary Disease) (ED), Pleural Effusion (DC) Activity Restrictions/Additional Instructions: Thank you for choosing [facility] for your healthcare needs today. Please realize this is an emergency room and that we are providing you with a medical screening exam and this may not be complete and all inclusive of all the testing and or work up that you may need to determine your ailment or severity of your illness. You have been screened and evaluated and felt safe for discharge. Health conditions do change or evolve sometimes and as such it is important that you follow up with your Primary Doctor to be re checked, 3-5 days is a general good time frame for follow up. You are always welcome to return to the ED for re assessment if your symptoms are worsening or you have new concerns Coding Level of Care Code ED Design Technician for Rahul Mata
--- NOTE | 2023-12-24 12:19 | ECG_ITS ---
[facility] Test Date: 2023-12-24 Pat Name: Chayito Small Department: Room: Gender: Female Associate Programmer Analyst: : 1965 Requested By: Yamel Butt Order Number: [id number] Teddy MD: Jairon Thrasher M.D. Measurements Intervals [place] Rate: 79 P: 46 IL: 136 QRS: 13 QRSD: 91 T: 44 QT: 391 QTc: 449 Interpretive Statements SINUS RHYTHM INCOMPLETE RIGHT BUNDLE BRANCH BLOCK [90+ ms QRS DURATION, TERMINAL R IN V1/V2, 40+ ms S IN I/aVL/V4/V5/V6] Compared to ECG 03/29/2023 10:34:52 Incomplete right bundle-branch block now present Myocardial infarct finding no longer present Electronically Signed On 12-25-2023 0:23:15 CDT by Jairon Thrasher M.D. [id number]
[2023-12-24 12:28] LABS: Basophils % 0.6 %; Eosinophils # 0.1 10^3/uL (0.0-0.8); Eosinophils % 0.9 %; Hematocrit 47.3 % (36-47); Lymphocytes # 0.5 10^3/uL (0.8-4.8); Lymphocytes % 7.1 %; Mean Corpuscular HGB Conc 31.7 g/dL (30-55); Mean Corpuscular Hemoglobin 29.9 pg (27-33); Mean Corpuscular Volume 94.4 fl (85-98); Monocytes # 0.5 10^3/uL (0.2-0.9); Monocytes % 7.4 %; Neutrophils # 5.26 10^3/uL (1.8-7.7); Neutrophils % 83.2 %; Nucleated Red Blood Cells % 0 %; Platelet Count 315 10^3/cmm (157-399); Red Blood Count 5.01 10^6/uL (3.85-5.65); Red Cell Distribution Width 14.1 % (12.1-15.1); White Blood Count 6.33 10^3/uL (3.29-11.43)
[2023-12-24] MEDS: methylPREDNISolone sod succ 125 mg/2 mL INJ IVP (12:29)
[2023-12-24 12:38] LABS: ABG PCO2 42.9 mmHg (35-45); ABG PH Result 7.42 (7.35-7.45); Alveolar-Arterial Oxygen Gradi 4.4 mmHg (5-10); Arterial Blood Gas Hematocrit 41.8 % (37-47); Base Excess ABG 3.2 mmol/L (-2.0-2.0); Blood Gas Allen Test Pos; Blood Gas Operator Identificat WALCI; Blood Gas Sample Site Radial, right; Blood Gas Sample Type Arterial; Carboxyhemoglobin 1.6 %THgb (0.4-20.1); HCO3 ABG 28.1 mmol/L (22-26); Ionized Calcium Level - ABG 1.2 mmol/L (1.1-1.4); Methemoglobin 0.1 % (0.4-1.5); Oxygen Device NC; Oxygen Saturation ABG 92.5; PO2 ABG 61.7 mmHg (80.0-100.0); Potassium Level - ABG 3.8 mmol/L (3.5-5.0); Total Hemoglobin 13.7 g/dL (12-16)
[2023-12-24] MEDS: albuterol 2.5 mg/3 mL Neb INHALATION (12:43)
[2023-12-24] MEDS: ipratropium-albuterol 3 mL Neb INHALATION (12:43)
[2023-12-24 12:53] LABS: Alanine Aminotransferase 11 U/L (0-33); Albumin Level 3.9 g/dL (3.5-5.2); Alkaline Phosphatase 54 U/L (35-105); Aspartate Amino Transferase 20 U/L (0-32); Blood Urea Nitrogen 24 mg/dL (8-23); C Reactive Protein 20.3 mg/L (0.0-4.9); Calcium 9.5 mg/dL (8.5-10.5); Carbon Dioxide 29 mmol/L (22-29); Chloride 103 mmol/L (98-107); Globulin 2.6 g/dL (1.3-4.6); Glomerular Filtration Rate 56.6 mL/min (90-130); Glucose 110 mg/dL (65-115); NT Pro B Type Natriuretic Pept 565 pg/mL (0-125); Osmolality Calculated 301 mOsm/kg (285-295); Sodium 143 mmol/L (136-145); Total Bilirubin 0.4 mg/dL (0.15-1.2); Total Protein 6.5 g/dL (6.6-8.7)
[2023-12-24 13:00] LABS: Troponin(5th) Baseline 18 ng/L (0-10)
[2023-12-24 13:07] LABS: Creatinine Clr Calc Pharmacy 58.5178
--- NOTE | 2023-12-24 13:56 | ECG_ITS ---
[facility] Test Date: 2023-12-24 Pat Name: Chayito Small Department: Room: Gender: Female Physical Therapist Assistant: : 1965 Requested By: Yamel Butt Order Number: [id number] Teddy MD: Jairon Thrasher M.D. Measurements Intervals [place] Rate: 76 P: 35 IL: 148 QRS: -10 QRSD: 83 T: 29 QT: 387 QTc: 437 Interpretive Statements SINUS RHYTHM POSSIBLE RIGHT VENTRICULAR CONDUCTION DELAY [RSR (QR) IN V1/V2] Compared to ECG 12/24/2023 12:19:35 Incomplete right bundle-branch block no longer present Electronically Signed On 12-25-2023 0:32:45 CDT by Jairon Thrasher M.D. [id number]
[2023-12-24 15:04] LABS: Troponin 5 2HR 13.74 ng/L (0-10)
[2023-12-24 15:05] LABS: Troponin 5 2HR Delta -4.26 ABS# (0-10)
--- NOTE | 2023-12-24 16:11 | P.CONIM_ITS ---
Providers/Reason For Consult 2 Consulting Physician/Specialty*: Gustabo early MD/pulmonary critical care Reason for Consult*: Left pleural effusion Requesting Physician: Yamel loredo MD Primary Care Provider: Bam Calvillo MD History of Present Illness History of Present Illness Chayito Small is a 58 year old female with a history of chronic lung disease/COPD, CHF, pulmonary hypertension, rheumatoid arthritis, and chronic hypoxemic respiratory failure on 4 L nasal cannula at all time. She presents to the emergency room with worsening shortness of breath and hypoxemia. She had increased her oxygen to 6 L at home. On her tank she can only get about [address] Her O2 sats in the waiting room or in the 60s. She was placed on a nonrebreather and oxygen saturations have come up. No fevers. No chest pain. No abdominal pain. No nausea or vomiting. This is been going on for few days now. Chest x-ray showed large pleural pleural effusion. Pulmonary consult requested for large pleural effusion Patient reported having allergies and sinus drainage and worsening shortness of breath. She also complained of worsening bilateral leg swelling. She took steroids long time ago. She felt better after receiving steroids and breathing treatment in the emergency room. Saturating 94% on 6 L oxygen Review of Systems 2 General: Reports: 10 or more systems reviewed and unremarkable except in HPI and below Medications/Allergies Home Medications Medication Instructions Recorded Confirmed Last Taken Type nebulizer accessories #2 ea 01/14/20 12/24/23 Unknown Rx cholecalciferol (vitamin D3) 50 2,000 unit PO DAILY 08/21/21 12/24/23 12/24/23 History mcg (2,000 unit) tablet furosemide 20 mg tablet (Lasix) 20 mg PO DAILY PRN Lower extremity 05/28/22 12/24/23 Unknown Rx edema 90 days #90 tabs potassium chloride 10 mEq 10 meq PO DAILY PRN Diuretic 05/28/22 12/24/23 Unknown Rx capsule,extended release therapy 90 days #90 caps prednisone 5 mg tablet See Rx Instructions PO .COMPLEX 11/21/22 12/24/23 Unknown Rx PRN joint pain flare #60 tabs sildenafil (pulm.hypertension) 20 20 mg PO TID 90 days #270 tabs 02/04/23 12/24/23 12/24/23 Rx mg tablet albuterol sulfate 2.5 mg/3 mL 2.5 mg inhalation Q4H PRN 03/29/23 12/24/23 Unknown History (0.083 %) solution for nebulization SHORTNESS OF BREATH/WHEEZING ashwagandha extract 120 mg capsule 120 mg PO DAILY 03/29/23 12/24/23 12/24/23 History biotin 10,000 mcg chewable tablet 10,000 mcg PO DAILY 03/29/23 12/24/23 12/24/23 History (Hair, Skin and Nails (biotin)) curcumin-phosphatidylcholine 500 500 mg PO DAILY 03/29/23 12/24/23 12/24/23 History mg capsule magnesium 250 mg tablet 500 mg PO DAILY 03/29/23 12/24/23 12/24/23 History metoprolol tartrate 25 mg tablet 25 mg PO DAILY Blood Pressure 03/29/23 12/24/23 12/24/23 History multivitamin 1 tab PO DAILY 03/29/23 12/24/23 12/24/23 History potassium citrate 99 mg capsule 99 mg PO DAILY 03/29/23 12/24/23 12/24/23 History albuterol sulfate 90 mcg/actuation 2 puff inhalation Q6H PRN 04/29/23 12/24/23 Unknown Rx aerosol inhaler (Ventolin HFA) shortness of breath or wheezing #8.5 grams azelastine 137 mcg-fluticasone 50 1 spray intranasal BID #23 grams 05/06/23 12/24/23 12/24/23 Rx mcg/spray nasal spray hydroxychloroquine 200 mg tablet 200 mg PO BID #60 tabs 11/12/23 12/24/23 12/24/23 Rx upadacitinib 15 mg tablet,extended 15 mg PO DAILY #30 tabs 11/12/23 12/24/23 12/24/23 Rx release 24 hr (Rinvoq) Beet Root 500 mg PO DAILY PRN unknown 12/24/23 12/24/23 Unknown History Capsimax 150 mg PO DAILY PRN supplement 12/24/23 12/24/23 Unknown History acetylcysteine 600 mg capsule (NAC) 600 mg PO DAILY 12/24/23 12/24/23 12/24/23 History aloe vera 25 mg capsule 25 mg PO TID 12/24/23 12/24/23 12/24/23 History cetirizine 10 mg tablet 10 mg PO DAILY 12/24/23 12/24/23 12/24/23 History doxycycline hyclate 100 mg capsule 100 mg PO BID 7 days #14 caps 12/24/23 Unknown Rx furosemide 20 mg tablet (Lasix) 20 mg PO DAILY #10 tabs 12/24/23 Unknown Rx ketoconazole 2 % shampoo See Rx Instructions .Route .COMPLEX 12/24/23 12/24/23 Unknown History levothyroxine 150 mcg tablet 150 mcg PO DAILY 12/24/23 12/24/23 12/24/23 History lisinopril 20 mg tablet 20 mg PO DAILY 12/24/23 12/24/23 12/24/23 History potassium chloride 20 mEq 20 meq PO DAILY #10 tabs 12/24/23 Unknown Rx tablet,extended release prednisone 1 mg tablet 1 mg PO DAILY 12/24/23 12/24/23 12/24/23 History prednisone 20 mg tablet 60 mg (3 x 20 mg) PO DAILY 5 days 12/24/23 Unknown Rx #15 tabs sodium chloride 0.65 % nasal spray 2 spray intranasal QID PRN Nasal 12/24/23 12/24/23 Unknown History aerosol Congestion valerian root 450 mg capsule 450 mg PO DAILY 12/24/23 12/24/23 Unknown History Allergies Allergy/AdvReac Type Severity Reaction Status Date / Time cephalexin Allergy ADR-Nausea Verified 11/18/23 09:48 oxycodone [From Percodan] Allergy ADR-Halluci Verified 11/18/23 09:48 nating PFSH Acute 2 PFSH: Medical History Sinus tachycardia COVID Acute and chronic respiratory failure with hypoxia Pneumonia Suspected 2019-nCoV infection CAP (community acquired pneumonia) Eczema Allergic conjunctivitis Seropositive rheumatoid arthritis of multiple sites Chronic respiratory failure with hypoxia Immunization counseling Pulmonary fibrosis High risk medication use Seropositive rheumatoid arthritis COPD (chronic obstructive pulmonary disease) CHF (congestive heart failure) May use lasix 20 mg when needed for leg swelling. -f/u in 2-3 months. Pulmonary hypertension Adenocarcinoma of cervix Acquired hypothyroidism Surgical History H/O emergency section Family History Mother Cancer Lung disease Chronic kidney disease (CKD) Family/Other Cancer Grandfather Cancer Other Rheumatoid arthritis Denies family history of Colon cancer Ovarian cancer Diabetes Heart disease Hypercholesteremia Breast cancer Hypertension Uterine cancer Thyroid disease Stroke Social History Smoking and tobacco/nicotine status: former use of tobacco/nicotine Quit status (tobacco/nicotine): has quit using Year quit tobacco: 2012 Former quit date comment: 1 ppd X 34 years Vitals/I&O/Wt Last Vital Signs Temp 97.6 F 12/24/23 12:03 Pulse 98 12/24/23 15:40 Resp 18 12/24/23 15:00 BP 132/84 12/24/23 15:00 Pulse Ox 94 12/24/23 15:40 O2 Del Method Nasal Cannula 12/24/23 12:39 O2 Flow Rate 6 12/24/23 12:39 Weight last 48 hrs Weight 153 lb Physical Exam 2 Narrative: General: alert, NAD HEENT: conj clear, EOMI, PERRL, mmm, Neck: supple, no meningismus Heme: no cervical LAP Respiratory: Inspection: No visible deformity of the chest wall Palpation: Trachea is mildly deviated to the right, bilateral symmetric expansion Percussion: Increased dullness on left lower lung zone Auscultation: Reduced breath sounds on auscultation on left lower lung zone Cardiovascular: rrr, nl s1s2, no mrg Abdomen: soft, nt, nd, no r/g, bs+ Extremities: pulses +, no edema, no c/c : no CVA tenderness Skin: intact, no rash MSK: no back or neck pain Neurologic: grossly intact Data 12/24/23 12:19 12/24/23 12:19 Other Labs: Radiology Impressions Chest X-Ray 12/24/23 12:16 IMPRESSION: 1. Moderate left pleural effusion. 2. Chronic interstitial fibrosis. Laboratory Results WBC 6.33 10^3/uL (3.29-11.43) 12/24/23 12:19 RBC 5.01 10^6/uL (3.85-5.65) 12/24/23 12:19 Hgb 15.00 g/dL (11.27-16.99) 12/24/23 12:19 Hct 47.3 % (36-47) H 12/24/23 12:19 MCV 94.4 fl (85-98) 12/24/23 12:19 MCH 29.9 pg (27-33) 12/24/23 12:19 MCHC 31.7 g/dL (30-55) 12/24/23 12:19 RDW 14.1 % (12.1-15.1) 12/24/23 12:19 Plt Count 315 10^3/cmm (157-399) 12/24/23 12:19 MPV 10.0 fL (7.4-10.4) 12/24/23 12:19 Neut % (Auto) 83.2 % 12/24/23 12:19 Lymph % (Auto) 7.1 % 12/24/23 12:19 [place] % (Auto) 7.4 % 12/24/23 12:19 Eos % (Auto) 0.9 % 12/24/23 12:19 Baso % (Auto) 0.6 % 12/24/23 12:19 Neut # (Auto) 5.26 10^3/uL (1.8-7.7) 12/24/23 12:19 Lymph # (Auto) 0.5 10^3/uL (0.8-4.8) L 12/24/23 12:19 [place] # (Auto) 0.5 10^3/uL (0.2-0.9) 12/24/23 12:19 Eos # (Auto) 0.1 10^3/uL (0.0-0.8) 12/24/23 12:19 Baso # (Auto) 0.0 10^3/uL (0.0-0.1) 12/24/23 12:19 Nucleated RBC % (auto) 0 % 12/24/23 12:19 Nucleated RBCs # 0.0 /100WBC 12/24/23 12:19 Specimen Type Arterial 12/24/23 12:27 Sample Site Radial, right 12/24/23 12:27 ABG pH 7.42 (7.35-7.45) 12/24/23 12:27 ABG pCO2 42.9 mmHg (35-45) 12/24/23 12:27 ABG pO2 61.7 mmHg (80.0-100.0) L 12/24/23 12:27 ABG HCO3 28.1 mmol/L (22-26) H 12/24/23 12:27 ABG O2 Saturation 92.5 12/24/23 12:27 ABG Base Excess 3.2 mmol/L (-2.0-2.0) H 12/24/23 12:27 Quirino Test Pos 12/24/23 12:27 A-a O2 Gradient 4.4 mmHg (5-10) L 12/24/23 12:27 Hematocrit 41.8 % (37-47) 12/24/23 12:27 Hgb O2 Saturation 91.0 % (95-100) L 12/24/23 12:27 Carboxyhemoglobin 1.6 %THgb (0.4-20.1) 12/24/23 12:27 Methemoglobin 0.1 % (0.4-1.5) L 12/24/23 12:27 Total Hemoglobin 13.7 g/dL (12-16) 12/24/23 12:27 Sodium 143.0 mmol/L (131-143) 12/24/23 12:27 Potassium 3.8 mmol/L (3.5-5.0) 12/24/23 12:27 Glucose 104.0 mg/dL (70-115) 12/24/23 12:27 Ionized Calcium 1.2 mmol/L (1.1-1.4) 12/24/23 12:27 O2 Delivery Device Nc 12/24/23 12:27 O2 Liters/Min 2.0 % 12/24/23 12:27 Practice Advisor ID [place] 12/24/23 12:27 Sodium 143 mmol/L (136-145) 12/24/23 12:19 Potassium 4.0 mmol/L (3.5-5.1) 12/24/23 12:19 Chloride 103 mmol/L (98-107) 12/24/23 12:19 Carbon Dioxide 29 mmol/L (22-29) 12/24/23 12:19 Anion Gap 15.0 (5-19) 12/24/23 12:19 BUN 24 mg/dL (8-23) H 12/24/23 12:19 Creatinine 1.0 mg/dL (0.5-0.9) H 12/24/23 12:19 GFR Calculation 56.6 mL/min (90-130) L 12/24/23 12:19 Glucose 110 mg/dL (65-115) 12/24/23 12:19 Calculated Osmolality 301 mOsm/kg (285-295) H 12/24/23 12:19 Calcium 9.5 mg/dL (8.5-10.5) 12/24/23 12:19 Total Bilirubin 0.4 mg/dL (0.15-1.2) 12/24/23 12:19 AST 20 U/L (0-32) 12/24/23 12:19 ALT 11 U/L (0-33) 12/24/23 12:19 Alkaline Phosphatase 54 U/L (35-105) 12/24/23 12:19 Troponin T Baseline 18 ng/L (0-10) H 12/24/23 12:19 Troponin T 120 Minute 13.74 ng/L (0-10) H 12/24/23 14:28 Delta Troponin T -4.26 ABS# (0-10) L 12/24/23 14:28 C-Reactive Protein 20.3 mg/L (0.0-4.9) H 12/24/23 12:19 NT-Pro-B Natriuret Pep 565 pg/mL (0-125) H 12/24/23 12:19 Total Protein 6.5 g/dL (6.6-8.7) L 12/24/23 12:19 Albumin 3.9 g/dL (3.5-5.2) 12/24/23 12:19 Globulin 2.6 g/dL (1.3-4.6) 12/24/23 12:19 Micro: Microbiology 12/24/23 12:53 Blood Culture - Preliminary Blood SPECIMEN COLLECTED 12/24/23 12:48 Blood Culture - Preliminary Blood SPECIMEN COLLECTED A&P Assessment and plan (1) Pleural effusion: (2) COPD exacerbation: (3) Asthma with exacerbation: Qualifiers: Asthma severity: moderate Asthma persistence: persistent Qualified Code(s): J45.41 - Moderate persistent asthma with (acute) exacerbation (4) Acute on chronic respiratory failure with hypoxemia: (5) Localized swelling of both lower legs: Plan Bedside ultrasound examination of left pleural effusion showed moderate pleural effusion with free lung border. There is no significant safe pocket to do thoracentesis at this point of time Recommended to DC with Lasix 20 mg with potassium supplementation-given patient's bilateral leg swelling-repeat chest x-ray in 10 days as outpatient Agreed to discharge with doxycycline as well as steroid taper for COPD/asthma exacerbation Recommended patient to continue Trelegy 1 puff daily, albuterol nebulization 3 times daily Consult Attestations 2 Medical Necessity Statement: Referred to the ED physician Coding Level of Care Code Acute Code for Chg Fwd Diagnoses Pleural effusion J90 COPD exacerbation J44.1 Moderate persistent asthma with acute exacerbation J45.41 Asthma severity: moderate Asthma persistence: persistent Acute on chronic respiratory failure with hypoxemia J96.21 Localized swelling of both lower legs R22.43 Time Spent (min) 36
== END 2023-12-24 15:41 | disposition home or self-care (01) ==
PROVIDERS: Emergency Provider Emergency Medicine; PCP Family Medicine
DX: J45.901 Unspecified asthma with (acute) exacerbation (principal); J96.21 Acute and chronic respiratory failure with hypoxia; Z87.891 Personal history of nicotine dependence
CPT/HCPCS: 36415; 36600; 71045; 80051; 80053; 82330; 82805; 83880; 84484; 85025; 86140; 87040; 87077; 87150; 87186; 87205; 93005; 94640; 96374; 99285; J2919; J7613

== ENCOUNTER 2024-01-05 17:13 | Inpatient (IN) | payer MEDICARE, MEDICAID, SELFPAY ==
[2024-01-05] VITALS (10 sets, daily range): BP systolic 116–154; BP diastolic 60–92; PULSE 92–126; RESP 18–32; TEMP 36.8–37.2; O2SAT 97–100; BMI 25.3
--- NOTE | 2024-01-05 17:18 | ECG_ITS ---
[facility] Test Date: 2024-01-05 Pat Name: Chayito Small Department: Room: Gender: Female Arbitrator: : 1965 Requested By: Julien Ruff Order Number: [id number] Teddy MD: Huber Edward M.D. Measurements Intervals [place] Rate: 109 P: 19 UT: 120 QRS: 11 QRSD: 81 T: 4 QT: 293 QTc: 396 Interpretive Statements SINUS TACHYCARDIA INDETERMINATE AXIS POSSIBLE RIGHT VENTRICULAR CONDUCTION DELAY [RSR (QR) IN V1/V2] ABNORMAL RHYTHM ECG Compared to ECG 12/24/2023 13:56:14 Indeterminate axis now present Sinus rhythm no longer present Electronically Signed On 01-06-2024 14:29:25 CDT by Huber Edward M.D. [email or web address]
--- NOTE | 2024-01-05 17:25 | XRR_ITS ---
PROCEDURE INFORMATION: Exam: XR Chest Exam date and time: 01/05/2024 5:37 PM Age: 58 years old Clinical indication: Shortness of breath; Patient HX: SOB; Copd; HX lt lung CA TECHNIQUE: Imaging protocol: Radiologic exam of the chest. Views: 1 view. COMPARISON: CR XR chest 1V portable [id number] 12/24/2023 12:21 PM FINDINGS: Lungs: Irregular opacities in the lung bases. Pleural spaces: Large left-sided pleural effusion. Heart/Mediastinum: Unremarkable. No cardiomegaly. Bones/joints: Unremarkable. XR/XR chest 1V portable [id number] IMPRESSION: 1. Large left-sided pleural effusion. 2. Irregular opacities in the lung bases.
[2024-01-05 17:32] LABS: Basophils # 0.1 10^3/uL (0.0-0.1); Basophils % 0.6 %; Eosinophils # 0.1 10^3/uL (0.0-0.8); Eosinophils % 0.8 %; Hematocrit 44.1 % (36-47); Lymphocytes # 0.6 10^3/uL (0.8-4.8); Lymphocytes % 4.5 %; Mean Corpuscular HGB Conc 32.7 g/dL (30-55); Mean Corpuscular Hemoglobin 30.3 pg (27-33); Mean Corpuscular Volume 92.8 fl (85-98); Monocytes # 0.9 10^3/uL (0.2-0.9); Monocytes % 7.2 %; Neutrophils # 10.44 10^3/uL (1.8-7.7); Neutrophils % 81.9 %; Nucleated Red Blood Cells % 0 %; Platelet Count 323 10^3/cmm (157-399); Red Blood Count 4.75 10^6/uL (3.85-5.65); White Blood Count 12.76 10^3/uL (3.29-11.43)
[2024-01-05 17:37] LABS: INR 0.97 (0.8-1.2)
[2024-01-05 17:41] LABS: D Dimer 2.93 ug/mLFEU (0-0.59)
[2024-01-05 17:57] LABS: Alanine Aminotransferase 16 U/L (0-33); Albumin Level 3.4 g/dL (3.5-5.2); Alkaline Phosphatase 66 U/L (35-105); Anion Gap 17.5 (5-19); Aspartate Amino Transferase 24 U/L (0-32); Blood Urea Nitrogen 29 mg/dL (8-23); Calcium 8.8 mg/dL (8.5-10.5); Carbon Dioxide 26 mmol/L (22-29); Chloride 95 mmol/L (98-107); Creatinine Clr Calc Pharmacy 61.4308; Globulin 3.4 g/dL (1.3-4.6); Glomerular Filtration Rate 56.6 mL/min (90-130); Glucose 131 mg/dL (65-115); Magnesium 2.3 mg/dL (1.7-2.3); NT Pro B Type Natriuretic Pept 283 pg/mL (0-125); Osmolality Calculated 286 mOsm/kg (285-295); Potassium 4.5 mmol/L (3.5-5.1); Sodium 134 mmol/L (136-145); Total Bilirubin 0.4 mg/dL (0.15-1.2); Total Protein 6.8 g/dL (6.6-8.7)
--- NOTE | 2024-01-05 18:01 | CTR_ITS ---
PROCEDURE INFORMATION: Exam: CTA Chest With Contrast Exam date and time: 01/05/2024 6:19 PM Age: 58 years old Clinical indication: Abnormal findings; Abnormal diagnostic tests; Elevated d-dimer; Shortness of breath; Patient HX: SOB with hypoxia and tachycardia. Dimer 2.93. History of lung cancer, copd, chf, and pulmonary fibrosis. ; Additional info: Hypoxia, tachycardia, edema, wells 4.5 with elevated dimer TECHNIQUE: Imaging protocol: Computed tomographic angiography of the chest with contrast. Exam focused on the arteries. 3D rendering (Not supervised by radiologist): MIP and/or 3D reconstructed images were created by the technologist. Radiation optimization: All CT scans at this facility use at least one of these dose optimization techniques: automated exposure control; mA and/or kV adjustment per patient size (includes targeted exams where dose is matched to clinical indication); or iterative reconstruction. Contrast material: OMNI 350; Contrast volume: 66 ml; Contrast route: INTRAVENOUS (IV); COMPARISON: CT angio chest PE protcl [id number] 03/29/2023 12:55 PM RADIATION DOSE METRICS: Total DLP (mGy-cm): 299.58 FINDINGS: Pulmonary arteries: Large pulmonary embolus layering along the posterior wall of the left main pulmonary artery extending into the left lower lobe. Aorta: Unremarkable. No aortic aneurysm. No aortic dissection. Lungs: Severe emphysematous changes throughout both lungs with an upper lobe predominance. Pleural spaces: Large left-sided pleural effusion with complete consolidation of the left lower lobe. There is a 4.7 x 3.0 cm mass in the left hilum (series 6, image 255). Heart: There is evidence of right heart strain with an RV to LV ratio of 1.3. Lymph nodes: Unremarkable. No enlarged lymph nodes. Bones/joints: Unremarkable. No acute fracture. Soft tissues: Unremarkable. CT/CT angio chest PE protcl [id number] IMPRESSION: 1. Large pulmonary embolus layering along the posterior wall of the left main pulmonary artery extending into the left lower lobe. 2. There is evidence of right heart strain with an RV to LV ratio of 1.3. 3. Severe emphysematous changes throughout both lungs with an upper lobe predominance. 4. Large left-sided pleural effusion with complete consolidation of the left lower lobe. 5. There is a 4.7 x 3.0 cm mass in the left hilum (series 6, image 255) concerning for neoplasm. COMMENTS: The presence of pulmonary emphysema on CT is an independent risk factor for lung cancer. In the absence of a history or active diagnosis of lung cancer, it is recommended that this patient with emphysema be evaluated for enrollment in a low dose CT lung cancer screening program.
[2024-01-05] MEDS: iohexol 350 mg/mL 500 mL Btl (per mL) IV (18:21)
[2024-01-05] MEDS: enoxaparin 80 mg/0.8 mL Syringe SUBCUT (19:30)
--- NOTE | 2024-01-05 20:25 | ED_ITS ---
HPI - SOB/Dyspnea 2 General: Chief Complaint: Shortness of Breath/Dyspnea Stated Complaint: SOB Time Seen by Provider: 01/05/24 17:14 Source: patient and EMS Mode of arrival: EMS Limitations: no limitations History of Present Illness: HPI Narrative: Patient presents complaining of shortness of breath. She has a history of CHF and bullous emphysema and wears 5 L nasal cannula at baseline. She states she has been increasingly more short of breath all day. Of note she was just in the ER about 9 to 10 days ago which resulted in her being seen by her manager culinary who did not feel it was safe for thoracentesis. She was seen by him because she had a new left pleural effusion. It is a moderate to large pleural effusion. She was placed on Lasix and had to stop that because she felt she was getting dehydrated. She is having bouts of tachycardia and increasing shortness of breath. She had been started back on potassium tablets for little bit. She also reports the days she has been hypertensive. She also has a history of pulmonary hypertension to complicate her lung history further. She has mildly labored respirations at this time on 100% nonrebreather. She was 86% when EMS arrived while on 6 L nasal cannula. Review of Systems 2 General: Reports: 10 or more systems reviewed and unremarkable except in HPI and below PFSH ED 2 PFSH: Medical History Sinus tachycardia COVID Acute and chronic respiratory failure with hypoxia Pneumonia Suspected 2019-nCoV infection CAP (community acquired pneumonia) Eczema Allergic conjunctivitis Seropositive rheumatoid arthritis of multiple sites Chronic respiratory failure with hypoxia Immunization counseling Pulmonary fibrosis High risk medication use Seropositive rheumatoid arthritis COPD (chronic obstructive pulmonary disease) CHF (congestive heart failure) May use lasix 20 mg when needed for leg swelling. -f/u in 2-3 months. Pulmonary hypertension Adenocarcinoma of cervix Acquired hypothyroidism Surgical History H/O emergency section Family History Mother Cancer Lung disease Chronic kidney disease (CKD) Family/Other Cancer Grandfather Cancer Other Rheumatoid arthritis Denies family history of Colon cancer Ovarian cancer Diabetes Heart disease Hypercholesteremia Breast cancer Hypertension Uterine cancer Thyroid disease Stroke Social History Smoking and tobacco/nicotine status: former use of tobacco/nicotine Quit status (tobacco/nicotine): has quit using Year quit tobacco: 2013 Former quit date comment: 1 ppd X 34 years Physical Exam 2 Const: COMMON NORMALS: no acute distress, average body habitus, patient oriented x3, healthy appearing, alert and well nourished GENERAL APPEARANCE: well kempt and well developed HENMT: COMMON NORMALS: normocephalic, atraumatic, external ears normal and moist oral mucous membranes HEAD & SCALP: normocephalic and atraumatic E XTERNAL EAR: Yes external ears normal Eye: COMMON NORMALS: Equal, round and reactive pupils present, EOMs intact bilaterally and conjunctivae normal CONJUNCTIVA: Yes conjunctivae normal P UPIL: Yes Equal, round and reactive pupils present Neck/C-Spine: COMMON NORMALS: full ROM, no lymphadenopathy and supple Chest: CHEST: Yes Symmetrical chest wall rise and No Surgical scars present (Chest) Resp: COMMON NORMALS: No retractions EFFORT & INSPECTION: Yes able to speak in complete sentences, Yes symmetric chest movement, Yes tachypneic and Yes uses accessory muscles AUSCULTATION: crackles Laterality: bilateral, rhonchi (scattered) and diminished lung sounds on the left in the lower lung philippe Cardio: COMMON NORMALS: regular rhythm, S1 normal heart sound present, S2 normal heart sound present, No gallops present (Cardio), No clicks present (Cardio), No murmurs present (Cardio) and No rub (Cardio) RATE: tachycardic RHYTHM: regular rhythm HEART SOUNDS: S1 normal heart sound present, S2 normal heart sound present and no murmurs PERIPHERAL PULSES: other (Radial pulses 2+ and symmetric) GI: COMMON NORMALS: Soft to palpation, non-tender and no masses INSPECTION: No abdominal distension PALPATION: Yes Soft to palpation, No Guarding due to palpation present (GI) and No Rebound tenderness present : COMMON NORMALS: Yes no CVA tenderness BLADDER/KIDNEY EXAM: Yes no CVA tenderness Back/Pelvis: COMMON NORMALS: no CVA tenderness Extremity: COMMON NORMALS: normal to inspection, full ROM, capillary refill normal and no clubbing, cyanosis or edema Neuro: COMMON NORMALS: patient oriented x3 SENSORIUM/ORIENTATION: Yes alert Psych: APPEARANCE: Yes well kempt Skin: COMMON NORMALS: no rashes or lesions noted, no wounds, turgor normal and no jaundice GENERAL SKIN EXAM: no rashes or lesions noted and turgor normal Course 2 ED course: Prolonged ED course secondary to awaiting read on CT scan and then attempting placement for transfer. Contacted [facility] who reported they had a bed at 18:30. Conctacted again at 20:00 and they are paging side splitter. Now will call [facility] Reevaluation(s): Reevaluation #1: Patient stable, have discussed with the hospitalist at [facility] whose side splitter reported that patient was not a candidate. Discussed with and was radiology directly at [facility] who reviewed the images over the phone with me discussed her clinical status further and was determined that she is not a candidate. He feels that the clot is actually older than today. Likely weeks to months. She has a stable BNP and troponin. Suspect right heart strain is secondary to her pulmonary hypertension. Time: 22:05 Vital Signs: Vital signs: Vital Signs Temperature 98.9 F 01/05/24 17:22 Pulse Rate 110 H 01/05/24 17:22 Respiratory Rate 27 H 01/05/24 17:22 Blood Pressure 154/60 01/05/24 17:22 Pulse Oximetry 98 01/05/24 17:22 Oxygen Delivery Me thod Non-Rebreather 01/05/24 17:22 Oxygen Flow Rate 15 01/05/24 17:22 MDM - SOB/Dyspnea Medical Decision Making 58-year-old female with bullous emphysema pulm hypertension and CHF who now has a new left pleural effusion over the past 2 weeks and then today was worsening and found to have a large left pulmonary embolism and left main artery with evidence of right heart strain. She also has a new 4.7 x 3 cm mass in the left hilum concerning for neoplasm. The case was discussed with her manager culinary who agrees with need for transfer due to a PE with right heart strain. Her Pesi score is 150 putting her at very high risk, not to mention her significant comorbidities they are not captured in the score. The new left pleural effusion is probably explained from the possible neoplasm but could also be from her pulmonary retention and heart failure. Personally reviewed her chest x-ray and I felt that compared to about 10 days ago the effusion look to be about the same may be marginally improved. So that I explain the patient's worsening shortness of breath especially with exertion so I did a D-dimer due to her Wells score 4.5 and found her to have a dimer of 2.93 which initiated the CTA PE addressed above. Patient given Lovenox 1 mg/kg. She is hemodynamically stable at this time with a heart rate down to 97 we are looking for transfer for possible thrombectomy/directed thrombolysis. Patient stable, have discussed with the hospitalist at [facility] whose side splitter reported that patient was not a candidate. Discussed with and was radiology directly at [facility] who reviewed the images over the phone with me discussed her clinical status further and was determined that she is not a candidate. He feels that the clot is actually older than today. Likely weeks to months. She has a stable BNP and troponin. Suspect right heart strain is secondary to her pulmonary hypertension. Case discussed with Dr. Linton regarding admission he is agreeable to admission to ICU. Differential Diagnosis Likely acute exacerbation of chronic obstructive airways disease, congestive heart failure, community acquired pneumonia and pulmonary embolism Medical Records I reviewed the patient's medical records. Lab Data I reviewed the patient's lab results. 01/05/24 17:15 01/05/24 17:15 Labs/Radiology: Radiology Impressions Chest X-Ray 01/05/24 17:25 IMPRESSION: 1. Large left-sided pleural effusion. 2. Irregular opacities in the lung bases. Chest CTA 01/05/24 18:01 IMPRESSION: 1. Large pulmonary embolus layering along the posterior wall of the left main pulmonary artery extending into the left lower lobe. 2. There is evidence of right heart strain with an RV to LV ratio of 1.3. 3. Severe emphysematous changes throughout both lungs with an upper lobe predominance. 4. Large left-sided pleural effusion with complete consolidation of the left lower lobe. 5. There is a 4.7 x 3.0 cm mass in the left hilum (series 6, image 255) concerning for neoplasm. COMMENTS: The presence of pulmonary emphysema on CT is an independent risk factor for lung cancer. In the absence of a history or active diagnosis of lung cancer, it is recommended that this patient with emphysema be evaluated for enrollment in a low dose CT lung cancer screening program. ADDENDUM: 01/05/24 0859 THIS REPORT CONTAINS FINDINGS THAT MAY BE CRITICAL TO PATIENT CARE. I requested a conference call with the covering provider on review of the case to discuss the findings. I was notified by [facility] staff that JULIEN Garcia had received the report, was aware of the findings, and chose not to speak directly. Laboratory Results WBC 12.76 10^3/uL (3.29-11.43) H 01/05/24 17:15 RBC 4.75 10^6/uL (3.85-5.65) 01/05/24 17:15 Hgb 14.40 g/dL (11.27-16.99) 01/05/24 17:15 Hct 44.1 % (36-47) 01/05/24 17:15 MCV 92.8 fl (85-98) 01/05/24 17:15 MCH 30.3 pg (27-33) 01/05/24 17:15 MCHC 32.7 g/dL (30-55) 01/05/24 17:15 RDW 14.0 % (12.1-15.1) 01/05/24 17:15 Plt Count 323 10^3/cmm (157-399) 01/05/24 17:15 MPV 11.0 fL (7.4-10.4) H 01/05/24 17:15 Neut % (Auto) 81.9 % 01/05/24 17:15 Lymph % (Auto) 4.5 % 01/05/24 17:15 [place] % (Auto) 7.2 % 01/05/24 17:15 Eos % (Auto) 0.8 % 01/05/24 17:15 Baso % (Auto) 0.6 % 01/05/24 17:15 Neut # (Auto) 10.44 10^3/uL (1.8-7.7) H 01/05/24 17:15 Lymph # (Auto) 0.6 10^3/uL (0.8-4.8) L 01/05/24 17:15 [place] # (Auto) 0.9 10^3/uL (0.2-0.9) 01/05/24 17:15 Eos # (Auto) 0.1 10^3/uL (0.0-0.8) 01/05/24 17:15 Baso # (Auto) 0.1 10^3/uL (0.0-0.1) 01/05/24 17:15 Nucleated RBC % (auto) 0 % 01/05/24 17:15 Nucleated RBCs # 0.0 /100WBC 01/05/24 17:15 PT 13.20 SECONDS (12.1-14.9) 01/05/24 17:15 INR 0.97 (0.8-1.2) 01/05/24 17:15 APTT 27.0 SECONDS (23.9-36.7) 01/05/24 17:15 D-Dimer 2.93 ug/mLFEU (0-0.59) H 01/05/24 17:15 Specimen Type Arterial 01/05/24 21:34 Sample Site Radial, right 01/05/24 21:34 ABG pH 7.40 (7.35-7.45) 01/05/24 21:34 ABG pCO2 46.4 mmHg (35-45) H 01/05/24 21:34 ABG pO2 168.0 mmHg (80.0-100.0) H 01/05/24 21:34 ABG PO2/FiO2 Ratio 0 01/05/24 21:34 ABG HCO3 29.0 mmol/L (22-26) H 01/05/24 21:34 ABG Base Excess 3.5 mmol/L (-2.0-2.0) H 01/05/24 21:34 Quirino Test Pos 01/05/24 21:34 Hematocrit 38.7 % (37-47) 01/05/24 21:34 O2 Delivery Device Nrb 01/05/24 21:34 O2 Liters/Min 15.0 % 01/05/24 21:34 FiO2 100.0 % 01/05/24 21:34 Threading Machine Setter ID Ed 01/05/24 21:34 Sodium 134 mmol/L (136-145) L 01/05/24 17:15 Potassium 4.5 mmol/L (3.5-5.1) 01/05/24 17:15 Chloride 95 mmol/L (98-107) L 01/05/24 17:15 Carbon Dioxide 26 mmol/L (22-29) 01/05/24 17:15 Anion Gap 17.5 (5-19) 01/05/24 17:15 BUN 29 mg/dL (8-23) H 01/05/24 17:15 Creatinine 1.0 mg/dL (0.5-0.9) H 01/05/24 17:15 GFR Calculation 56.6 mL/min (90-130) L 01/05/24 17:15 Glucose 131 mg/dL (65-115) H 01/05/24 17:15 Calculated Osmolality 286 mOsm/kg (285-295) 01/05/24 17:15 Calcium 8.8 mg/dL (8.5-10.5) 01/05/24 17:15 Magnesium 2.3 mg/dL (1.7-2.3) 01/05/24 17:15 Total Bilirubin 0.4 mg/dL (0.15-1.2) 01/05/24 17:15 AST 24 U/L (0-32) 01/05/24 17:15 ALT 16 U/L (0-33) 01/05/24 17:15 Alkaline Phosphatase 66 U/L (35-105) 01/05/24 17:15 Troponin T Baseline 18 ng/L (0-10) H 01/05/24 17:15 NT-Pro-B Natriuret Pep 283 pg/mL (0-125) H 01/05/24 17:15 Total Protein 6.8 g/dL (6.6-8.7) 01/05/24 17:15 Albumin 3.4 g/dL (3.5-5.2) L 01/05/24 17:15 Globulin 3.4 g/dL (1.3-4.6) 01/05/24 17:15 All radiology interpretation(s) finalized by discharge ED provider radiology interpretation(s): Personally viewed the chest x-ray my interpretation as above. CT scan personally reviewed and large left pleural effusion and questionable for PE on left awaiting radiology read. Critical Care Time 2 Critical Care Time: Critical Care Time: Yes Total Critical Care Time: 58 Attestation: Exclusive of other billable procedures. Includes time spent at bedside, discussing with other physicians which there were multiple, discussing with transfer centers, documenting findings and placing orders. Discharge Plan Discharge Patient Disposition: Admitted As Inpatient Admit Provider: Paco Linton Clinical Impression: Pulmonary embolism, Respiratory failure with hypoxia Condition: Stable Coding Level of Care Code ED Drawing In Machine Tender Helper for Chg Esperanza
[2024-01-05 21:44] LABS: ABG PCO2 46.4 mmHg (35-45); Arterial Blood Gas Hematocrit 38.7 % (37-47); Base Excess ABG 3.5 mmol/L (-2.0-2.0); Blood Gas Allen Test Pos; Blood Gas Sample Type Arterial
[2024-01-05 21:45] LABS: Blood Gas Operator Identificat ED; Blood Gas Sample Site Radial, right; Oxygen Device NRB; PO2 FiO2 Ratio Arterial Blood 0
[2024-01-05 21:58] LABS: Troponin(5th) Baseline 18 ng/L (0-10)
[2024-01-06] VITALS (60 sets, daily range): BP systolic 102–138; BP diastolic 61–100; PULSE 78–116; RESP 17–43; TEMP 36.6; O2SAT 84–97; BMI 25.3
--- NOTE | 2024-01-06 00:32 | PC.NURSE ---
Sputum Patient expectorating cream colored sputum. Dr. Linton notified; order received for sputum culture.
--- NOTE | 2024-01-06 01:12 | PC.NURSE ---
Diet Dr. Linton at bedside; order received for clear liquid diet.
--- NOTE | 2024-01-06 03:15 | P.HP_ITS ---
Providers/Chief Complaint 2 Admitting Physician: Paco Linton Primary Care Provider: Bam Calvillo MD Chief Complaint: SOB History of Present Illness Chayito Small is a 58 year old female with history of congestive heart failure, COPD, pulmonary hypertension, on chronic oxygen of 5 L, loculated left- sided pleural effusion, not amenable for safe thoracentesis, left lung mass status post radiation therapy, seropositive rheumatoid arthritis, came in for evaluation due to she states tachycardia, states that her heart rate going up into 140s, her, was found to be dyspneic and with low oxygen saturation on evaluation by EMS, oxygen saturation 86% on 6 L, was started on nonrebreather in ER. She was found to have a large pulmonary embolism in the left main artery, suggestion of strain by CT imaging, she was started on tubulation with Lovenox, case was discussed with pulmonology and transfer was attempted, but was not found to be a candidate for interventional discussion with lamination assembler at [facility] and interventional radiology at [facility]. She denies more cough than usual, she is noted to be producing very sputum. Review of Systems 2 Const: Denies: fever(s), chills, body aches or malaise ENMT: Denies: throat pain Card: Reports: palpitations; Denies: chest pain, edema, pre-syncope or dyspnea on exertion Resp: Reports: productive cough; Denies: dyspnea, change in phlegm color or hemoptysis GI: Denies: abdominal pain, nausea, vomiting, diarrhea, constipation, hematochezia or melena : Denies: flank pain, urinary frequency or hematuria Musc: Denies: back pain, joint swelling or joint redness Skin/Breast: Denies: rash or new lesions Neuro: Denies: headache(s), numbness in extremities, weakness in extremities, dizziness, confusion or seizure-like activity Medications/Allergies Home Medications Medication Instructions Recorded Confirmed Last Taken Type nebulizer accessories #2 ea 01/14/20 12/24/23 Unknown Rx cholecalciferol (vitamin D3) 50 2,000 unit PO DAILY 08/21/21 12/24/23 12/24/23 History mcg (2,000 unit) tablet furosemide 20 mg tablet (Lasix) 20 mg PO DAILY PRN Lower extremity 05/28/22 12/24/23 Unknown Rx edema 90 days #90 tabs prednisone 5 mg tablet See Rx Instructions PO .COMPLEX 11/21/22 01/06/24 01/05/24 Rx PRN joint pain flare #60 tabs sildenafil (pulm.hypertension) 20 20 mg PO TID 90 days #270 tabs 02/04/23 01/06/24 01/05/24 Rx mg tablet albuterol sulfate 2.5 mg/3 mL 2.5 mg inhalation Q4H PRN 03/29/23 01/06/24 Unknown History (0.083 %) solution for nebulization SHORTNESS OF BREATH/WHEEZING ashwagandha extract 120 mg capsule 120 mg PO DAILY 03/29/23 01/06/24 12/24/23 History biotin 10,000 mcg chewable tablet 10,000 mcg PO DAILY 03/29/23 12/24/23 12/24/23 History (Hair, Skin and Nails (biotin)) curcumin-phosphatidylcholine 500 500 mg PO DAILY 03/29/23 01/06/24 01/04/24 History mg capsule magnesium 250 mg tablet 500 mg PO DAILY 03/29/23 12/24/23 12/24/23 History metoprolol tartrate 25 mg tablet 25 mg PO DAILY Blood Pressure 03/29/23 01/06/24 12/24/23 History multivitamin 1 tab PO DAILY 03/29/23 01/06/24 12/24/23 History potassium citrate 99 mg capsule 99 mg PO DAILY 03/29/23 01/06/24 01/05/24 History albuterol sulfate 90 mcg/actuation 2 puff inhalation Q6H PRN 04/29/23 01/06/24 Unknown Rx aerosol inhaler (Ventolin HFA) shortness of breath or wheezing #8.5 grams azelastine 137 mcg-fluticasone 50 1 spray intranasal BID #23 grams 05/06/23 01/06/24 01/05/24 Rx mcg/spray nasal spray hydroxychloroquine 200 mg tablet 200 mg PO BID #60 tabs 11/12/23 01/06/24 01/05/24 Rx upadacitinib 15 mg tablet,extended 15 mg PO DAILY #30 tabs 11/12/23 01/06/24 01/05/24 Rx release 24 hr (Rinvoq) Beet Root 500 mg PO DAILY PRN unknown 12/24/23 01/06/24 Unknown History Capsimax 150 mg PO DAILY PRN supplement 12/24/23 01/06/24 Unknown History acetylcysteine 600 mg capsule (NAC) 600 mg PO DAILY 12/24/23 01/06/24 12/24/23 History aloe vera 25 mg capsule 25 mg PO BID 12/24/23 01/06/24 12/24/23 History cetirizine 10 mg tablet 10 mg PO DAILY 12/24/23 01/06/24 01/05/24 History ketoconazole 2 % shampoo See Rx Instructions .Route .COMPLEX 12/24/23 01/06/24 Unknown History levothyroxine 150 mcg tablet 150 mcg PO DAILY 12/24/23 01/06/24 01/05/24 History lisinopril 20 mg tablet 20 mg PO DAILY 12/24/23 12/24/23 12/24/23 History prednisone 1 mg tablet 1 mg PO DAILY 12/24/23 12/24/23 12/24/23 History sodium chloride 0.65 % nasal spray 2 spray intranasal QID PRN Nasal 12/24/23 12/24/23 Unknown History aerosol Congestion valerian root 450 mg capsule 450 mg PO BEDTIME 12/24/23 01/06/24 01/04/24 History furosemide 20 mg tablet (Lasix) 20 mg PO DAILY PRN edema #30 tabs 01/03/24 01/06/24 01/01/24 Rx potassium chloride 10 mEq 10 meq PO DAILY PRN Diuretic 01/03/24 Unknown Rx capsule,extended release therapy 30 days #30 caps potassium chloride 20 mEq 20 meq PO DAILY #10 tabs 01/03/24 01/06/24 01/05/24 Rx tablet,extended release Allergies Allergy/AdvReac Type Severity Reaction Status Date / Time cephalexin Allergy ADR-Nausea Verified 01/05/24 17:27 oxycodone [From Percodan] Allergy ADR-Halluci Verified 01/05/24 17:27 nating PFSH Acute 2 PFSH: Medical History Sinus tachycardia COVID Acute and chronic respiratory failure with hypoxia Pneumonia Suspected 2019-nCoV infection CAP (community acquired pneumonia) Eczema Allergic conjunctivitis Seropositive rheumatoid arthritis of multiple sites Chronic respiratory failure with hypoxia Immunization counseling Pulmonary fibrosis High risk medication use Seropositive rheumatoid arthritis COPD (chronic obstructive pulmonary disease) CHF (congestive heart failure) May use lasix 20 mg when needed for leg swelling. -f/u in 2-3 months. Pulmonary hypertension Adenocarcinoma of cervix Acquired hypothyroidism Surgical History H/O emergency section Family History Mother Cancer Lung disease Chronic kidney disease (CKD) Family/Other Cancer Grandfather Cancer Other Rheumatoid arthritis Denies family history of Colon cancer Ovarian cancer Diabetes Heart disease Hypercholesteremia Breast cancer Hypertension Uterine cancer Thyroid disease Stroke Social History Smoking and tobacco/nicotine status: former use of tobacco/nicotine Quit status (tobacco/nicotine): has quit using Year quit tobacco: 2012 Former quit date comment: 1 ppd X 34 years Vitals/I&O/Wt Last Vital Signs Temp 98.2 F 01/05/24 23:30 Pulse 89 01/06/24 02:15 Resp 21 H 01/06/24 02:15 BP 126/74 01/06/24 02:15 Pulse Ox 92 01/06/24 02:15 O2 Del Method High Flow Nasal Cannula 01/06/24 02:15 O2 Flow Rate 9 01/06/24 02:15 Weight last 48 hrs Weight 69 kg Weight 77.111 kg Physical Exam 2 Const: COMMON NORMALS: patient oriented x3 and alert GENERAL APPEARANCE: c ooperative ORIENTATION/CONSCIOUSNESS: Yes awake HENMT: COMMON NORMALS: oropharynx normal Neck/C-Spine: COMMON NORMALS: no JVD Resp: COMMON NORMALS: normal respiratory effort and clear to auscultation bilaterally AUSCULTATION: clear to auscultation bilaterally Cardio: COMMON NORMALS: no JVD, regular rhythm, S1 normal heart sound present, S2 normal heart sound present and No murmurs present (Cardio) RHYTHM: regular rhythm HEART SOUNDS: S1 normal heart sound present and S2 normal heart sound present GI: COMMON NORMALS: Normal to inspection, nondistended, normoactive bowel sounds present, Soft to palpation and non-tender PALPATION: Yes Soft to palpation Extremity: COMMON NORMALS: no joint enlargement and no pedal edema Neuro: COMMON NORMALS: patient oriented x3 and moves all extremities S ENSORIUM/ORIENTATION: Yes alert Skin: COMMON NORMALS: no rashes or lesions noted GENERAL SKIN EXAM: no rashes or lesions noted Data 01/05/24 17:15 01/05/24 17:15 A&P Assessment and plan (1) Respiratory failure with hypoxia: With dyspnea, tachycardia, tachypnea, requiring nonrebreather oxygen support initially on presentation, currently still requiring 9 L compared to usual 5 with underlying COPD, CHF, pulmonary hypertension with, chronic left-sided pleural effusion not amenable to safe thoracentesis, left-sided lung mass. Reviewed vitals, CBC, D-dimer, INR, ABG, CMP, troponin, NT proBNP, chest CTA, chest x-ray, EKG, ER note, discussed with ER provider. Large PE with suspected right heart strain by CT, but is maintaining hemodynamics so far. Pasi score 1 30-1 50, with initial tachycardia, very high risk of mortality, outside facilities contacted but was not found to be candidate for intervention at [facility] or [facility]. Obtain echocardiogram. Treat PE as below. Additional assessment with respiratory viral panel, sputum culture. She declines any antibiotic or steroids. Continue breathing treatments. Respiratory therapy assessment for Discussed with her for now clear liquids alone given her respiratory condition, elevated risk of complications, reassess if she may advance to more solid diet. Mentions a concern about diarrhea with antibiotics, having recently had a course, discussed with her and will start on probiotic. Qualifiers: Chronicity: acute on chronic Qualified Code(s): J96.21 - Acute and chronic respiratory failure with hypoxia (2) PE (pulmonary thromboembolism): Continue Lovenox. Monitor for risk of bleeding with anticoagulation. Reassess blood counts. Assess TTE. Monitor vitals. Plan COPD: Does produce good amount of beige sputum, but she declines any treatment other than breathing treatments, understands that COPD exacerbation may be contributing to her hypoxia, respiratory failure, in addition to PE, but is firm that she will not take any antibiotic or steroid. Requested breathing treatments. Sputum culture. Obtain viral panel. Congestive heart failure, at the moment does not appear in exacerbation, but at risk with large PE. Pulmonary hypertension, on chronic oxygen of 5 L, Continue sildenafil. Loculated left-sided pleural effusion, not amenable for safe thoracentesis, reviewed pulmonology note. Left lung mass status post radiation therapy, Seropositive rheumatoid arthritis. On discussion of CODE STATUS, she would not under any circumstance want any intubation and declines BiPAP support. She is only okay with nasal cannula. She is states she would be okay with chest compressions, defibrillation in case of cardiac issue as she states her heart has been in better shape compared to her lungs. Discussed with her that challenge may arise in case of cardiac resuscitation and need for mechanical ventilation, she is adamant would not want any sort of respiratory support via nasal cannula. Attestations 2 Medical Necessity Statement*: Admission of over 2 midnights anticipated for assessment management of respiratory failure with large PE, with very high risk, with multiple underlying comorbidities including pulmonary hypertension, COPD, CHF, lung mass, chronic pleural effusion. and High Time for a total of 80 minutes, includes reviewing past or interval history, examining/interviewing patient, placing orders, counseling patient/family/other support, discussing plan of care with staff, communicating with other healthcare providers and documenting encounter Diagnoses Respiratory failure with hypoxia J96.21 Chronicity: acute on chronic PE (pulmonary thromboembolism) I26.99
--- NOTE | 2024-01-06 03:31 | USCV_ITS ---
Chayito Small Age: 58 Gender: F : 1965 Exam Date: 01/06/2024 09:26 Ordering Phys: Paco Linton MD Technologist: Exam [place] [facility] [place]: cp BP: 127 / 89 HR: 77 Rhythm: Sinus Technical Quality: Adequate, Technically difficult study MEASUREMENTS (Male / Female) Normal Values 2D ECHO LV Diastolic Diameter PLAX 3.8 cm 4.2 - 5.9 / 3.9 - 5.3 cm IVS Diastolic Thickness 1.1 cm 0.6 - 1.0 / 0.6 - 0.9 cm IVS Systolic Thickness 1.1 cm LVPW Diastolic Thickness 1.0 cm 0.6 - 1.0 / 0.6 - 0.9 cm LVPW Systolic Thickness 1.2 cm LVOT Diameter 1.8 cm LV Ejection Fraction 2D Teich 66.0 % LV Ejection Fraction MOD 2C 60.1 % LV Ejection Fraction 2C AL 59.6 % LA Diameter 2.7 cm RA Systolic Volume 4C AL 24.8 ml RA Systolic Volume 4C MOD 24.6 ml Aorta at Sinotubular Diameter 1.9 cm M-MODE LA Ao Ratio MM 1.0 AV Cusp Separation MM 2.0 cm DOPPLER AV Peak Velocity 121.0 cm/s LVOT Peak Velocity 79.0 cm/s AV Area Cont Eq vti 1.7 cm squared AV Area Cont Eq pk 1.6 cm squared MV Peak Velocity 91.0 cm/s MV Area PHT 4.1 cm squared Mitral E to A Ratio 0.7 TV Peak Velocity 294.0 cm/s TR Peak Velocity 373.0 cm/s TR Peak Gradient 55.7 mmHg TV Peak E Velocity 68.0 cm/s Right Atrial Pressure 3.0 mmHg Pulmonary Artery Systolic Pressu 58.7 mmHg PV Peak Velocity 117.0 cm/s FINDINGS Left Ventricle Left ventricle is normal size. LV systolic function is normal with EF of 55-60%. Septal motion is consistent with pressure overload. Grade 1 diastolic dysfunction Right Ventricle RV is dilated and hypokinetic. Right Atrium Normal in size Left Atrium Normal in size Mitral Valve Structurally normal mitral valve. Trace mitral regurgitation. Aortic Valve Structurally normal aortic valve. No significant stenosis or regurgitation. Tricuspid Valve Mild tricuspid regurgitation. RVSP is 55 to 60 mmHg. This is consistent with moderate pulmonary hypertension. Pulmonic Valve Not well visualized Pericardium Pleural effusion is seen Aorta Normal in size IVC Appears to be normal CONCLUSIONS LV systolic function is normal with EF of 55 to 60%. Grade 1 diastolic dysfunction. RV is dilated and hypokinetic. Trace mitral regurgitation Mild tricuspid regurgitation Moderate pulmonary hypertension Pleural effusion is seen. Marcelino Morales MD (Electronically Signed) Final Date: 06 January 2024 17:33 S
[2024-01-06] MEDS: lactobacillus 1 Tablet 1 TAB PO ×3 (04:24→17:01)
--- NOTE | 2024-01-06 05:07 | PC.NURSE ---
Respiratory Panel Upon requesting a respiratory panel specimen from patient, patient stated that she did not want any covid testing or testing that went far up in her nose. Patient stated that she believes those types of tests are a trick played on us by the government. Education provided to patient on reason for testing as well as procedure. Patient consented to superficial nasal swab specimen; Test resulted inconclusive. Patient asked once more for nasal swab specimen; patient refused. Dr. Linton notified.
[2024-01-06] MEDS: enoxaparin 80 mg/0.8 mL Syringe 70 MG SUBCUT (06:48)
[2024-01-06] MEDS: levothyroxine 150 mcg Tablet PO (06:48)
[2024-01-06] MEDS: FUROsemide 20 mg Tablet PO (08:59)
[2024-01-06] MEDS: hydroxychloroquine 200 mg Tablet PO ×2 (08:59→17:01)
[2024-01-06] MEDS: metoprolol tartrate 25 mg Tablet PO (09:00)
--- NOTE | 2024-01-06 09:40 | P.MISC_ITS ---
Miscellaneous Note Note: Patient is stating that she lives alone, she has home health, she is dependent on 5 to 6 L of oxygen and a caregiver for daily activities She is not interested in penitentiary placement Stating that her son is in [place] working 2 jobs Patient is stating that we have not allowed her to get good sleep because we have been poking her all night When asked about the cancer she said she is not sure about the status Looking at previous records She has concern related to left lung cancer with pleural effusion Currently patient is requiring 10 L of oxygen via nasal cannula She has not allowed us to use due to respiratory panel Patient seems to be in denial Goals of care discussed she does not want any chest compressions defibrillation or intubation in case of any cardiac event or Rester distress Patient is stating that she was supposed to follow-up with Dr. Jones I will touch base with Dr. Arenas to see if he is on-call
[2024-01-06] MEDS: ipratropium-albuterol 3 mL Neb INHALATION ×3 (12:11→19:35)
[2024-01-06 14:36] LABS: Platelet Count 300 10^3/cmm (157-399)
[2024-01-06] MEDS: saline nasal spray 44mL Btl 2 SPRAY NASAL (16:18)
[2024-01-06] MEDS: NON-FORMULARY MEDICATION (Sildenafil (Pulm.Hypertension) 20 mg tablet) 20 EACH PO (20:14)
--- NOTE | 2024-01-06 20:15 | ECG_ITS ---
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 Measurements Intervals [place] Rate: 113 P: 54 AR: 126 QRS: 20 QRSD: 84 T: 31 QT: 299 QTc: 410 Interpretive Statements SINUS TACHYCARDIA INDETERMINATE AXIS POSSIBLE RIGHT VENTRICULAR CONDUCTION DELAY [RSR (QR) IN V1/V2] Compared to ECG 01/05/2024 17:18:40 No significant changes Electronically Signed On 01-07-2024 7:25:54 CDT by Marcelino Morales M.D. [id number]
--- NOTE | 2024-01-06 20:30 | PC.NURSE ---
Home Medications Patient concerned about receiving her home medications rinvoq and trelegy scheduled for 01/07/24. Dr. Lobo contacted and order received to administer first doses. See MAR for details.
--- NOTE | 2024-01-06 20:35 | PC.NURSE ---
Chest Pain Patient complaining of chest pain at a 5 on a 1-10 scale, located in the middle of her chest. When asked to describe this pain, patient stated that it felt like everything was tight and that she had never felt this sensation before. Patient diaphoretic but denying nausea, arm and jaw pain. EKG performed. Following ekg, patient stated that she believed this pain was related to her stomach, stating that her stomach was dried out and that this could be indigestion. Dr. Lobo notified; order received for GI cocktail PO once.
--- NOTE | 2024-01-06 21:00 | PC.NURSE ---
Wells Catheter While attempting to use the bedpan, patient's oxygen saturation decreased and sustained at 70% while on 8L high flow nasal cannula. Oxygen increased to 15 L high flow nasal cannula. Patient educated on breathing techniques; oxygen saturation slowly increased to low 90s. Dr. Lobo notified; order received to place wells catheter.
[2024-01-06] MEDS: lidocaine 2% viscous 15 ML, aluminum-mag hydrox-simethicon 30 ML, sucralfate oral liq 1 GM PO (21:08)
[2024-01-06] MEDS: TRELEGY ELLIPTA 1 EACH INHALATION (21:27)
[2024-01-06] MEDS: heparin drip 25,000 UNIT/500 ML PREMIX 20 UNIT IV (22:16)
[2024-01-07] VITALS (55 sets, daily range): BP systolic 91–136; BP diastolic 68–87; PULSE 79–119; RESP 16–28; TEMP 36.7–37.1; O2SAT 88–98; BMI 25.3
--- NOTE | 2024-01-07 00:45 | PC.NURSE ---
Heparin Drip Dr. Datar contacted unit; order received to continue heparin drip per protocol until further orders received.
[2024-01-07 04:20] LABS: Basophils % 0.4 %; Eosinophils # 0.1 10^3/uL (0.0-0.8); Eosinophils % 1.1 %; Hematocrit 40.2 % (36-47); Lymphocytes # 0.4 10^3/uL (0.8-4.8); Lymphocytes % 5.5 %; Mean Corpuscular HGB Conc 31.8 g/dL (30-55); Mean Corpuscular Hemoglobin 29.9 pg (27-33); Mean Corpuscular Volume 93.9 fl (85-98); Mean Platelet Volume 9.8 fL (7.4-10.4); Monocytes # 0.5 10^3/uL (0.2-0.9); Monocytes % 6.4 %; Neutrophils # 5.97 10^3/uL (1.8-7.7); Neutrophils % 81.8 %; Nucleated Red Blood Cells % 0 %; Platelet Count 244 10^3/cmm (157-399); Red Blood Count 4.28 10^6/uL (3.85-5.65); Red Cell Distribution Width 13.7 % (12.1-15.1)
[2024-01-07 04:38] LABS: Partial Thromboplastin Time 84.4 SECONDS (23.9-36.7)
[2024-01-07 04:41] LABS: Anion Gap 12.1 (5-19); Blood Urea Nitrogen 20 mg/dL (8-23); Calcium 8.4 mg/dL (8.5-10.5); Carbon Dioxide 28 mmol/L (22-29); Chloride 100 mmol/L (98-107); Glomerular Filtration Rate 56.6 mL/min (90-130); Glucose 109 mg/dL (65-115); Osmolality Calculated 285 mOsm/kg (285-295); Potassium 4.1 mmol/L (3.5-5.1); Sodium 136 mmol/L (136-145)
[2024-01-07 04:43] LABS: Creatinine Clr Calc Pharmacy 58.3667
[2024-01-07] MEDS: artificial tears Op Soln 15 mL Btl 1 DROP EYE-BOTH (04:59)
[2024-01-07] MEDS: levothyroxine 150 mcg Tablet PO (05:00)
[2024-01-07] MEDS: predniSONE 5 mg Tablet PO (05:56)
[2024-01-07] MEDS: ipratropium-albuterol 3 mL Neb INHALATION ×4 (08:03→19:50)
[2024-01-07] MEDS: magnesium oxide 400 mg tablet PO (08:25)
[2024-01-07] MEDS: hydroxychloroquine 200 mg Tablet PO ×2 (08:25→18:14)
[2024-01-07] MEDS: lactobacillus 1 Tablet 1 TAB PO ×2 (08:26→18:14)
[2024-01-07] MEDS: FUROsemide 20 mg Tablet PO (08:27)
[2024-01-07] MEDS: NON-FORMULARY MEDICATION (Sildenafil (Pulm.Hypertension) 20 mg tablet) 20 EACH PO ×2 (08:29→20:24)
[2024-01-07] MEDS: TRELEGY ELLIPTA 1 EACH INHALATION (08:35)
--- NOTE | 2024-01-07 12:14 | P.PN_ITS ---
Subjective 2 Subjective: This morning patient is stating that her oxygen appointment got worse because we were trying to draw blood for the CBC and BMP Dr. Arenas planning for thoracentesis today Heparin drip will be discontinued around noon Patient is agreeable for initiation of screening for LTAC she has spent some time at LTAC in the past Vitals/I&O/Wt Last Vital Signs Temp 98.8 F 01/07/24 08:00 Pulse 112 H 01/07/24 11:35 Resp 22 H 01/07/24 11:25 BP 107/80 01/07/24 10:00 Pulse Ox 96 01/07/24 11:25 O2 Del Method High Flow Nasal Cannula 01/07/24 11:25 O2 Flow Rate 11 01/07/24 11:25 01/06/24 01/07/24 01/07/24 22:59 06:59 14:59 Intake Total 240 / 560 781 / 1341 200 / 200 Output Total 250 / 250 250 / 500 Balance -10 / 310 531 / 841 200 / 200 Weight last 48 hrs Weight 69 kg Weight 69 kg Weight 69 kg Weight 77.111 kg Physical Exam 2 Narrative: Patient is on 11 L nasal cannula Nonfocal neuroexam Abdomen soft Nonfocal Anxious appearing Rhonchi and crackles positive No active hemoptysis Pleasant cough Urinary Catheter Management: Francois: Cath Placed During This Visit: yes Reason for Continuing Indwelling Catheter: Accurate Measurement of Urinary Output in Critically Ill Patients Urinary Catheter Date of Insertion: 01/07/24 Urinary Catheter Time of Insertion: 21:37 Data 01/07/24 04:12 01/07/24 04:12 Micro: Microbiology 01/06/24 00:19 Gram Stain - Final Sputum - Expectorated Sputum Sputum Culture - Preliminary A&P Assessment and plan (1) Pulmonary embolism: Qualifiers: Acute cor pulmonale presence: without acute cor pulmonale Chronicity: a cute Pulmonary embolism type: other Qualified Code(s): I26.99 - Other pulmonary embolism without acute cor pulmonale (2) Seropositive rheumatoid arthritis of multiple sites: (3) COPD (chronic obstructive pulmonary disease): Qualifiers: COPD type: emphysema Emphysema type: unspecified Qualified Code(s): J 43.9 - Emphysema, unspecified (4) Pulmonary fibrosis: (5) Acute and chronic respiratory failure with hypoxia: (6) Left lower lobe pulmonary nodule: (7) COPD exacerbation: (8) Respiratory failure with hypoxia: Qualifiers: Chronicity: acute on chronic Qualified Code(s): J96.21 - Acute and chronic respiratory failure with hypoxia Plan Acute on chronic hypoxia I do not think patient will be able to go home with such high oxygen requirement I have recommended long-term acute care, patient is agreeable to start the screening She is stating that if her oxygen improves she would like to go home, will reevaluate after thoracentesis which Dr. Jones is planning to do today Stop heparin afterwards Today we will start her back on Lovenox, will try to discharge her on therapeutic Lovenox if insurance is able to cover it otherwise she will be discharged on DOAC's Would like to monitor in ICU for 1 more day DNR/DNI Patient is in strong denial regarding her active poor lung condition with underlying cancer Attestations 2 Medical Necessity Statement*: Continue ICU management Diagnoses Pulmonary embolism I26.99 Acute cor pulmonale presence: without acute cor pulmonale Chronicity: acute Pulmonary embolism type: other Seropositive rheumatoid arthritis of multiple sites M05.79 Pulmonary emphysema, unspecified emphysema type J43.9 COPD type: emphysema Emphysema type: unspecified Pulmonary fibrosis J84.10 Acute and chronic respiratory failure with hypoxia J96.21 Left lower lobe pulmonary nodule R91.1 COPD exacerbation J44.1 Respiratory failure with hypoxia J96.21 Chronicity: acute on chronic
[2024-01-07 12:26] LABS: Partial Thromboplastin Time 88.2 SECONDS (23.9-36.7)
[2024-01-07] MEDS: metoprolol tartrate 25 mg Tablet PO (15:30)
--- NOTE | 2024-01-07 17:46 | XRR_ITS ---
PROCEDURE INFORMATION: Exam: XR Chest Exam date and time: 01/07/2024 6:15 PM Age: 58 years old Clinical indication: Other: Post thoracentesis TECHNIQUE: Imaging protocol: Radiologic exam of the chest. Views: 1 view. COMPARISON: CT angio chest PE protcl [id number] 01/05/2024 6:19 PM FINDINGS: Lungs: Left basilar pleuroparenchymal opacity correlates with the CT findings. Bullous emphysematous changes are also seen. Pleural spaces: See above. No pneumothorax. Heart/Mediastinum: Unremarkable. No cardiomegaly. Bones/joints: Unremarkable. XR/XR chest 1V portable [id number] IMPRESSION: Left basilar pleuroparenchymal opacity correlates with the CT findings. Bullous emphysematous changes are noted most prominent in the upper lung philippe.
--- NOTE | 2024-01-07 18:02 | P.CONIM_ITS ---
Providers/Reason For Consult 2 Consulting Physician/Specialty*: Gustabo Otoole MD/pulmonary critical care Reason for Consult*: pulmonary embolism and left pleural effusion Requesting Physician: Julien Ruff MD Attending Physician: Ralph Rivera MD Primary Care Provider: Bam Calvillo MD History of Present Illness History of Present Illness Chayito Small is a 58 year old female with a history of chronic lung disease/COPD, CHF, pulmonary hypertension, rheumatoid arthritis, and chronic hypoxemic respiratory failure on on chronic oxygen of 5 L, loculated left-sided pleural effusion, not amenable for safe thoracentesis, history of cervical cancer diagnosed 2018 s/p radiation, left lung mass-unable to biopsy due to significant bullous emphysema-underwent radiation August 2023, seropositive rheumatoid arthritis, presents to the emergency room with worsening shortness of breath and tachycardia. states that her heart rate going up into 140s, her, was found to be dyspneic and with low oxygen saturation on evaluation by EMS, oxygen saturation 86% on 6 L, was started on nonrebreather in ER. She was found to have a large pulmonary embolism in the left main artery, suggestion of strain by CT imaging ER physician consulted pulmonology for large pulmonary embolism with right heart strain.; Recommended to consult interventional pulmonary. transfer was attempted, but was not found to be a candidate for interventional discussion with interventional radiology at [facility] she was started on Lovenox and admitted to ICU. Patient was admitted to ICU-currently requiring 8 to 10 L high flow nasal cannula. She has refused antibiotics or steroids. Patient is DNR/DNI. She came to emergency room on 12/24/2023 for COPD exacerbation-responded to steroids and breathing treatments. At that time bedside ultrasound examination in ER showed pleural effusion which was not amenable for thoracentesis. Seen patient in ICU today-she is desaturating even on slight movement. Currently saturating 93% on 8 L high flow nasal cannula. Bedside ultrasound examination showed significant left pleural effusion Review of Systems 2 General: Reports: 10 or more systems reviewed and unremarkable except in HPI and below Medications/Allergies Home Medications Medication Instructions Recorded Confirmed Last Taken Type nebulizer accessories #2 ea 01/14/20 01/06/24 Unknown Rx cholecalciferol (vitamin D3) 50 2,000 unit PO DAILY 08/21/21 01/06/24 12/24/23 History mcg (2,000 unit) tablet prednisone 5 mg tablet See Rx Instructions PO .COMPLEX 11/21/22 01/06/24 01/05/24 Rx PRN joint pain flare #60 tabs sildenafil (pulm.hypertension) 20 20 mg PO TID 90 days #270 tabs 02/04/23 01/06/24 01/05/24 Rx mg tablet albuterol sulfate 2.5 mg/3 mL 2.5 mg inhalation Q4H PRN 03/29/23 01/06/24 Unknown History (0.083 %) solution for nebulization SHORTNESS OF BREATH/WHEEZING ashwagandha extract 120 mg capsule 120 mg PO DAILY 03/29/23 01/06/24 12/24/23 History biotin 10,000 mcg chewable tablet 10,000 mcg PO DAILY 03/29/23 01/06/24 01/06/24 History (Hair, Skin and Nails (biotin)) curcumin-phosphatidylcholine 500 500 mg PO DAILY 03/29/23 01/06/24 01/04/24 History mg capsule magnesium 250 mg tablet 500 mg PO DAILY 03/29/23 01/06/24 12/24/23 History metoprolol tartrate 25 mg tablet 25 mg PO DAILY Blood Pressure 03/29/23 01/06/24 12/24/23 History multivitamin 1 tab PO DAILY 03/29/23 01/06/24 12/24/23 History potassium citrate 99 mg capsule 99 mg PO DAILY 03/29/23 01/06/24 01/05/24 History albuterol sulfate 90 mcg/actuation 2 puff inhalation Q6H PRN 04/29/23 01/06/24 Unknown Rx aerosol inhaler (Ventolin HFA) shortness of breath or wheezing #8.5 grams azelastine 137 mcg-fluticasone 50 1 spray intranasal BID #23 grams 05/06/23 01/06/24 01/05/24 Rx mcg/spray nasal spray hydroxychloroquine 200 mg tablet 200 mg PO BID #60 tabs 11/12/23 01/06/24 01/05/24 Rx upadacitinib 15 mg tablet,extended 15 mg PO DAILY #30 tabs 11/12/23 01/06/24 01/05/24 Rx release 24 hr (Rinvoq) Beet Root 500 mg PO DAILY PRN unknown 12/24/23 01/06/24 Unknown History Capsimax 150 mg PO DAILY PRN supplement 12/24/23 01/06/24 Unknown History acetylcysteine 600 mg capsule (NAC) 600 mg PO DAILY 12/24/23 01/06/24 12/24/23 History aloe vera 25 mg capsule 25 mg PO BID 12/24/23 01/06/24 12/24/23 History cetirizine 10 mg tablet 10 mg PO DAILY 12/24/23 01/06/24 01/05/24 History ketoconazole 2 % shampoo See Rx Instructions .Route .COMPLEX 12/24/23 01/06/24 Unknown History levothyroxine 150 mcg tablet 150 mcg PO DAILY 12/24/23 01/06/24 01/05/24 History lisinopril 20 mg tablet 20 mg PO DAILY 12/24/23 01/06/24 12/24/23 History sodium chloride 0.65 % nasal spray 2 spray intranasal QID PRN Nasal 12/24/23 01/06/24 Unknown History aerosol Congestion valerian root 450 mg capsule 450 mg PO BEDTIME 12/24/23 01/06/24 01/04/24 History furosemide 20 mg tablet (Lasix) 20 mg PO DAILY PRN edema #30 tabs 01/03/24 01/06/24 01/01/24 Rx potassium chloride 10 mEq 10 meq PO DAILY PRN Diuretic 01/03/24 01/06/24 Unknown Rx capsule,extended release therapy 30 days #30 caps potassium chloride 20 mEq 20 meq PO DAILY #10 tabs 01/03/24 01/06/24 01/05/24 Rx tablet,extended release Allergies Allergy/AdvReac Type Severity Reaction Status Date / Time cephalexin Allergy ADR-Nausea Verified 01/05/24 17:27 oxycodone [From Percodan] Allergy ADR-Halluci Verified 01/05/24 17:27 nating Current Medications Generic Name Dose Route Start Last Admin Trade Name Freq PRN Reason Stop Dose Admin Albuterol/Ipratropium 3 ml 01/06/24 04:00 01/07/24 16:10 Ipratropium-Albuterol 3 Ml Neb INHALATION 3 ml Q4H.RESPIRATORY NEGRITO Administration Artificial Tears 1 drop 01/07/24 00:46 01/07/24 04:59 Artificial Tears Op Soln 15 Ml Btl EYE-BOTH 1 drop Q4H PRN Administration DRY EYE(S) Furosemide 20 mg 01/06/24 09:00 01/07/24 08:27 Furosemide 20 Mg Tablet PO 20 mg DAILY NEGRITO Administration Hydroxychloroquine Sulfate 200 mg 01/06/24 09:00 01/07/24 08:25 Hydroxychloroquine 200 Mg Tablet PO 200 mg BID NEGRITO Administration Lactobacillus Acidophilus 1 tab 01/06/24 03:20 01/07/24 08:26 Lactobacillus 1 Tablet PO 1 tab BID NEGRITO Administration Levothyroxine Sodium 150 mcg 01/06/24 06:00 01/07/24 05:00 Levothyroxine 150 Mcg Tablet PO 150 mcg 0600 NEGRITO Administration Lisinopril 20 mg 01/07/24 09:00 01/07/24 09:56 Lisinopril 20 Mg Tablet PO Not Given DAILY NEGRITO Magnesium Oxide 400 mg 01/07/24 09:00 01/07/24 08:25 Magnesium Oxide 400 Mg Tablet PO 400 mg DAILY NEGRITO Administration Metoprolol Tartrate 25 mg 01/06/24 09:00 01/07/24 15:30 Metoprolol Tartrate 25 Mg Tablet PO 25 mg DAILY NEGRITO Administration Non-Formulary Medication 20 mg 01/06/24 09:00 01/07/24 17:12 Sildenafil (Pulm.Hypertension) PO Not Given TID NEGRITO Non-Formulary Medication 600 mg 01/07/24 09:00 01/07/24 08:29 Acetylcysteine [Nac] PO Not Given DAILY NEGRITO Non-Formulary Medication 15 mg 01/06/24 20:45 01/07/24 08:28 Upadacitinib [Rinvoq] PO 15 mg DAILY NEGRITO Administration Non-Formulary Med( 1 each 01/06/24 20:45 01/07/24 08:35 Trelegy Ellipta 100/ INHALATION 1 each 62.5/25 Mcg Inh) DAILY NEGRITO Administration Prednisone 5 - 10 mg 01/06/24 09:50 01/07/24 05:56 Prednisone 5 Mg Tablet PO 10 mg DAILY PRN Administration joint pain flare Sodium Chloride 2 spray 01/06/24 09:50 01/06/24 16:18 Saline Nasal [place] 44ml Btl NASAL 2 spray QID PRN Administration Nasal Congestion PFSH Acute 2 PFSH: Medical History Sinus tachycardia COVID Acute and chronic respiratory failure with hypoxia Pneumonia Suspected 2019-nCoV infection CAP (community acquired pneumonia) Eczema Allergic conjunctivitis Seropositive rheumatoid arthritis of multiple sites Chronic respiratory failure with hypoxia Immunization counseling Pulmonary fibrosis High risk medication use Seropositive rheumatoid arthritis COPD (chronic obstructive pulmonary disease) CHF (congestive heart failure) May use lasix 20 mg when needed for leg swelling. -f/u in 2-3 months. Pulmonary hypertension Adenocarcinoma of cervix Acquired hypothyroidism Surgical History H/O emergency section Family History Mother Cancer Lung disease Chronic kidney disease (CKD) Family/Other Cancer Grandfather Cancer Other Rheumatoid arthritis Denies family history of Colon cancer Ovarian cancer Diabetes Heart disease Hypercholesteremia Breast cancer Hypertension Uterine cancer Thyroid disease Stroke Social History Smoking and tobacco/nicotine status: former use of tobacco/nicotine Quit status (tobacco/nicotine): has quit using Year quit tobacco: 2012 Former quit date comment: 1 ppd X 34 years Vitals/I&O/Wt Last Vital Signs Temp 98.7 F 01/07/24 12:30 Pulse 101 H 01/07/24 17:30 Resp 28 H 01/07/24 17:30 BP 117/80 01/07/24 17:30 Pulse Ox 90 01/07/24 17:30 O2 Del Method High Flow Nasal Cannula 01/07/24 16:00 O2 Flow Rate 8 01/07/24 16:00 01/07/24 01/07/24 01/07/24 06:59 14:59 22:59 Intake Total 781 / 1341 545.667 / 545.667 Output Total 250 / 500 Balance 531 / 841 545.667 / 545.667 Weight last 48 hrs Weight 152 lb 1.903 oz Weight 152 lb 1.903 oz Weight 152 lb 1.903 oz Physical Exam 2 Narrative: General: alert, in no acute respiratory distress on 8 L supplemental oxygen HEENT: conj clear, EOMI, PERRL, mmm, Neck: supple, no meningismus Heme: no cervical LAP Respiratory: Inspection: No visible deformity of the chest wall Palpation: Trachea is mildly deviated to the right, bilateral symmetric expansion Percussion: Dullness left lower lung zone Auscultation: Reduced breath sounds on left lower lung zone Cardiovascular: rrr, nl s1s2, no mrg Abdomen: soft, nt, nd, no r/g, bs+ Extremities: pulses +, no edema, no c/c : no CVA tenderness Skin: intact, no rash MSK: no back or neck pain Neurologic: grossly intact Urinary Catheter Management: Francois: Cath Placed During This Visit: yes Reason for Continuing Indwelling Catheter: Accurate Measurement of Urinary Output in Critically Ill Patients Urinary Catheter Date of Insertion: 01/07/24 Urinary Catheter Time of Insertion: 21:37 Data 01/07/24 04:12 01/07/24 04:12 Other Labs: Radiology Impressions Chest CTA 01/05/24 18:01 IMPRESSION: 1. Large pulmonary embolus layering along the posterior wall of the left main pulmonary artery extending into the left lower lobe. 2. There is evidence of right heart strain with an RV to LV ratio of 1.3. 3. Severe emphysematous changes throughout both lungs with an upper lobe predominance. 4. Large left-sided pleural effusion with complete consolidation of the left lower lobe. 5. There is a 4.7 x 3.0 cm mass in the left hilum (series 6, image 255) concerning for neoplasm. COMMENTS: The presence of pulmonary emphysema on CT is an independent risk factor for lung cancer. In the absence of a history or active diagnosis of lung cancer, it is recommended that this patient with emphysema be evaluated for enrollment in a low dose CT lung cancer screening program. ADDENDUM: 01/05/24 8809 THIS REPORT CONTAINS FINDINGS THAT MAY BE CRITICAL TO PATIENT CARE. I requested a conference call with the covering provider on review of the case to discuss the findings. I was notified by [facility] staff that JULIEN Garcia had received the report, was aware of the findings, and chose not to speak directly. Chest X-Ray 01/07/24 17:46 IMPRESSION: Left basilar pleuroparenchymal opacity correlates with the CT findings. Bullous emphysematous changes are noted most prominent in the upper lung philippe. Laboratory Results WBC 7.30 10^3/uL (3.29-11.43) 01/07/24 04:12 RBC 4.28 10^6/uL (3.85-5.65) 01/07/24 04:12 Hgb 12.80 g/dL (11.27-16.99) 01/07/24 04:12 Hct 40.2 % (36-47) 01/07/24 04:12 MCV 93.9 fl (85-98) 01/07/24 04:12 MCH 29.9 pg (27-33) 01/07/24 04:12 MCHC 31.8 g/dL (30-55) 01/07/24 04:12 RDW 13.7 % (12.1-15.1) 01/07/24 04:12 Plt Count 244 10^3/cmm (157-399) 01/07/24 04:12 MPV 9.8 fL (7.4-10.4) 01/07/24 04:12 Neut % (Auto) 81.8 % 01/07/24 04:12 Lymph % (Auto) 5.5 % 01/07/24 04:12 [place] % (Auto) 6.4 % 01/07/24 04:12 Eos % (Auto) 1.1 % 01/07/24 04:12 Baso % (Auto) 0.4 % 01/07/24 04:12 Neut # (Auto) 5.97 10^3/uL (1.8-7.7) 01/07/24 04:12 Lymph # (Auto) 0.4 10^3/uL (0.8-4.8) L 01/07/24 04:12 [place] # (Auto) 0.5 10^3/uL (0.2-0.9) 01/07/24 04:12 Eos # (Auto) 0.1 10^3/uL (0.0-0.8) 01/07/24 04:12 Baso # (Auto) 0.0 10^3/uL (0.0-0.1) 01/07/24 04:12 Nucleated RBC % (auto) 0 % 01/07/24 04:12 Nucleated RBCs # 0.0 /100WBC 01/07/24 04:12 Differential Comment Yes 01/07/24 17:40 PT 13.20 SECONDS (12.1-14.9) 01/05/24 17:15 INR 0.97 (0.8-1.2) 01/05/24 17:15 APTT 88.2 SECONDS (23.9-36.7) H 01/07/24 11:36 D-Dimer 2.93 ug/mLFEU (0-0.59) H 01/05/24 17:15 Specimen Type Arterial 01/05/24 21:34 Sample Site Radial, right 01/05/24 21:34 ABG pH 7.40 (7.35-7.45) 01/05/24 21:34 ABG pCO2 46.4 mmHg (35-45) H 01/05/24 21:34 ABG pO2 168.0 mmHg (80.0-100.0) H 01/05/24 21:34 ABG PO2/FiO2 Ratio 0 01/05/24 21:34 ABG HCO3 29.0 mmol/L (22-26) H 01/05/24 21:34 ABG Base Excess 3.5 mmol/L (-2.0-2.0) H 01/05/24 21:34 Quirino Test Pos 01/05/24 21:34 Hematocrit 38.7 % (37-47) 01/05/24 21:34 O2 Delivery Device Nrb 01/05/24 21:34 O2 Liters/Min 15.0 % 01/05/24 21:34 FiO2 100.0 % 01/05/24 21:34 Central Sterilization Technician ID Ed 01/05/24 21:34 Sodium 136 mmol/L (136-145) 01/07/24 04:12 Potassium 4.1 mmol/L (3.5-5.1) 01/07/24 04:12 Chloride 100 mmol/L (98-107) 01/07/24 04:12 Carbon Dioxide 28 mmol/L (22-29) 01/07/24 04:12 Anion Gap 12.1 (5-19) 01/07/24 04:12 BUN 20 mg/dL (8-23) 01/07/24 04:12 Creatinine 1.0 mg/dL (0.5-0.9) H 01/07/24 04:12 GFR Calculation 56.6 mL/min (90-130) L 01/07/24 04:12 Glucose 109 mg/dL (65-115) 01/07/24 04:12 Calculated Osmolality 285 mOsm/kg (285-295) 01/07/24 04:12 Calcium 8.4 mg/dL (8.5-10.5) L 01/07/24 04:12 Magnesium 2.3 mg/dL (1.7-2.3) 01/05/24 17:15 Total Bilirubin 0.4 mg/dL (0.15-1.2) 01/05/24 17:15 AST 24 U/L (0-32) 01/05/24 17:15 ALT 16 U/L (0-33) 01/05/24 17:15 Alkaline Phosphatase 66 U/L (35-105) 01/05/24 17:15 Troponin T Baseline 18 ng/L (0-10) H 01/05/24 17:15 NT-Pro-B Natriuret Pep 283 pg/mL (0-125) H 01/05/24 17:15 Total Protein 6.8 g/dL (6.6-8.7) 01/05/24 17:15 Albumin 3.4 g/dL (3.5-5.2) L 01/05/24 17:15 Globulin 3.4 g/dL (1.3-4.6) 01/05/24 17:15 Fluid Color Red 01/07/24 17:40 Fluid Appearance Cloudy 01/07/24 17:40 Fluid Specific Grav 30.000 01/07/24 17:40 Fluid pH 8.0 01/07/24 17:40 Fluid WBC 1494 /uL 01/07/24 17:40 Fluid RBC 48.000 10^3/uL 01/07/24 17:40 Fld Polynuclear WBCs # 0.909 01/07/24 17:40 Fld Polynuclear WBCs % 60.800 % 01/07/24 17:40 Fl Mononucl WBCs #(Auto) 0.585 01/07/24 17:40 Fl Mononuclear % Auto 39.200 % 01/07/24 17:40 Fld Crystal Laterality Left pleural fluid 01/07/24 17:40 Fluid Glucose 101.0 mg/dL 01/07/24 17:40 Fluid Albumin 2.2 g/dL 01/07/24 17:40 Fluid LDH 533 U/L 01/07/24 17:40 Fluid Alk Phosphatase 21 IU/L 01/07/24 17:40 Fluid Cholesterol 127 mg/dL (0-200) 01/07/24 17:40 Fluid Triglycerides 33 mg/dL (0-150) 01/07/24 17:40 Fluid Uric Acid 5 mg/dL 01/07/24 17:40 Pleural Total Protein 3.4 g/dL 01/07/24 17:40 Adenovirus (PCR) Cancelled 01/06/24 00:19 C. pneumoniae DNA (PCR) Cancelled 01/06/24 00:19 Coronavirus 229E (PCR) Cancelled 01/06/24 00:19 Human Metapneumovir PCR Cancelled 01/06/24 00:19 Influenza A (H1) PCR Cancelled 01/06/24 00:19 Influ A (H1/09) PCR Cancelled 01/06/24 00:19 Influenza A (H3) PCR Cancelled 01/06/24 00:19 Influenza Type A (PCR) Cancelled 01/06/24 00:19 Influenza Type B (PCR) Cancelled 01/06/24 00:19 M. pneumoniae (PCR) Cancelled 01/06/24 00:19 Parainfluenza 1 (PCR) Cancelled 01/06/24 00:19 Parainfluenza 2 (PCR) Cancelled 01/06/24 00:19 Parainfluenza 3 (PCR) Cancelled 01/06/24 00:19 Parainfluenza 4 (PCR) Cancelled 01/06/24 00:19 RSV Type A (PCR) Cancelled 01/06/24 00:19 RSV Type B (PCR) Cancelled 01/06/24 00:19 Entero/Rhino (PCR) Cancelled 01/06/24 00:19 SARS-CoV-2 (PCR) Cancelled 01/06/24 00:19 Micro: Microbiology 01/06/24 00:19 Gram Stain - Final Sputum - Expectorated Sputum Sputum Culture - Preliminary A&P Assessment and plan (1) Pleural effusion, left: Bedside ultrasound examination today showed moderate to large left pleural effusion Drained 1500 cc hemorrhagic fluid-exudative in nature Cultures, cytology pending Postprocedure chest x-ray-no evidence of pneumothorax; bullous emphysematous changes more prominent in upper lung philippe. Persistent left basilar pleural- parenchymal opacity Patient has previous history of cervical cancer diagnosed 2018 underwent radiation; she was found to have left lower lobe mass in April 2023-unable to biopsy due to significant bullous emphysema-underwent SBRT in August [address]23. Admission [address] chest showed 4.7 x 3 cm mass in the left hilum; large pulmonary embolism along posterior wall of left main pulmonary artery extending into left lower lobe. With suspected malignancy-suspect this fluid is all secondary to malignancy. Cultures are pending. Patient refused antibiotics. (2) COPD (chronic obstructive pulmonary disease): Continue scheduled nebulizations Qualifiers: COPD type: emphysema Emphysema type: unspecified Qualified Code(s): J 43.9 - Emphysema, unspecified (3) Acute and chronic respiratory failure with hypoxia: Patient had chronic hypoxic respiratory failure secondary to bullous emphysema- requires baseline 4 to 6 L supplemental oxygen-currently requiring 8 L high flow nasal cannula (4) Pulmonary embolism: Admission CT chest showed 4.7 x 3 cm mass in the left hilum; large pulmonary embolism along posterior wall of left main pulmonary artery extending into left lower lobe. Given history of malignancy-pulmonary embolism suspected secondary to malignancy Continue Lovenox; as she is scheduled for thoracentesis she was temporarily switched to heparin and held 4 hours prior to procedure; now that thoracentesis has been done-she will be back on Lovenox Qualifiers: Acute cor pulmonale presence: without acute cor pulmonale Chronicity: a cute Pulmonary embolism type: other Qualified Code(s): I26.99 - Other pulmonary embolism without acute cor pulmonale (5) Pulmonary hypertension: Echocardiogram today revealed PASP 58; she has history of pulmonary artery hypertension; current admission she had a large left pulmonary embolus-RV is dilated and hypokinetic's Recommended to continue sildenafil 10 Mg daily Lasix 20 Mg daily to unload RV (6) Goals of care, counseling/discussion: Patient had severe bilateral upper lobe bullous emphysema causing chronic hypoxic respiratory failure requiring 4 to 6 L supplemental oxygen;Pulmonary hypertension on sildenafil as outpatient PET active left lower lobe lung nodule suspicious for lung malignancy (unable to do biopsy due to high risk for pneumothorax given bullous emphysema ) underwent s/p SBRT August 2023-now with new hilar mass suspicious and new pleural effusion-suspicious for progression of malignancy. Pleural fluid cytology is pending. Given her overall comorbidities-high requirement of supplemental oxygen-now with large pulmonary embolus requiring anticoagulation-I have informed patient that if pleural fluid cytology comes positive for malignancy it will be stage IV which needs chemotherapy. Patient refused further cancer treatments . She also reports that she is DNR/DNI. Prognosis is guarded for this admission-however with several comorbidities and suspected malignancy and refusing treatments-she may not have good quality of life. She verbalized understanding. Consult Attestations 2 Medical Necessity Statement: Deferred to hospitalist Time Spent in Patient Care: Greater than 35 minutes (>than 50% of time spent in counselling and/or direct pt care on unit) . Critical Care Time: ICU CHECKLIST: Problem list updated Verbal orders reviewed and signed This patient has a high probability of clinically significant, sudden or life threatening deterioration of the patient's (pulmonary, cardiac) systems required my full, direct attention, the highest level of physician preparedness for urgent intervention and personal management. I managed/supervised life or organ supporting interventions that required frequent physician assessment. I devoted my full attention in the ICU to the direct care of this patient for the period of time indicated above. Time I spent with family or surrogate(s) is included only if the patient was incapable of providing necessary information or participating in decision making. This time includes the following services provided: Telemetry review Mechanical Ventilation Hemodynamic interpretation, assessment and management Review and interpretation of CXR Review and interpretation of lab values Review and interpretation of microbiologic data and culture results Review of medications and administration Review and interpretation of Nutrition requirements and management Discussion of management with other consultants and services Clinical update to family members [x] Data and vital sign review and interpretation [x] Patient assessment, examination and intervention [x] Documentation [x] Medication orders and management Time spent for teaching as well as performing procedures are billed separately and is not included in this note Coding Level of Care Code Acute Code for [facility] [place] [facility] Diagnoses Pleural effusion, left J90 Pulmonary emphysema, unspecified emphysema type J43.9 COPD type: emphysema Emphysema type: unspecified Acute and chronic respiratory failure with hypoxia J96.21 Pulmonary embolism I26.99 Acute cor pulmonale presence: without acute cor pulmonale Chronicity: acute Pulmonary embolism type: other Pulmonary hypertension I27.20 Goals of care, counseling/discussion Z71.89 Time Spent (min) 58
--- NOTE | 2024-01-07 18:03 | PM.ACPR ---
Procedure/Consent Time out: Time Out Performed: Yes Consent: Consent for Procedure: Consent obtained from patient, Risks & Benefits reviewed and Agrees to proceed with procedure Procedure Narrative: Pulmonary & Critical Care Medicine Procedure - Ultrasound guided Thoracentesis Procedure: CPT code 32837 thoracentesis, needle or catheter, aspiration of the pleural space; with imaging guidance Indication: Worsening left pleural effusion. C56.2 Manager Environmental Health And Safety(s): Gustabo Osullivanr [facility] Clinical history: 58-year-old Ms. Chayito Small with bilateral upper lobe bullous emphysema, chronic hypoxic respiratory failure requiring 4 to 6 L at baseline; left lower lobe nodule s/p radiation in August 2023-admitted to hospital for worsening shortness of breath and increased oxygen requirements-CT PE showed large left pleural effusion; new right hilar mass as well as large PE and left main pulmonary artery. Today scheduled for thoracentesis for therapeutic and diagnostic purposes-we will send pleural fluid for cultures as well as cytology. Technique: The study was performed in an ACR accredited facility. Medication reconciliation form reviewed and any changes related this procedure resolved. Report: The procedure for thoracentesis was explained to the patient including the risks, benefits and possible complications. The patient was given the opportunity to ask questions, wished to proceed, and signed the written informed consent form. Using ultrasound guidance, a safe route of access was identified into the left pleural space. The site was then prepped and draped using maximal sterile barrier technique. The 1% lidocaine was used for local anesthetic. With sonographic guidance, a 6 [place] thoracentesis catheter was placed with return of 5 cc hemorrhagic pleural fluid. The catheter was slipped into the pleural cavity and approximately 1.5 L of sanguinous pleural fluid was removed. The patient tolerated the procedure well without any immediate complications. Impression: 1. Successful ultrasound-guided left thoracentesis with removal of approximately 1.5 L of sanguinous pleural fluid. ICD-10 code-J90 pleural effusion, not elsewhere classified Prior to thoracentesis (figure: 1) Postthoracentesis (figure: 2) Acute Procedures Epistaxis Control: Time out performed: Yes
[2024-01-07 18:35] LABS: Apprearance, Body Fluid CLOUDY; Color, Body Fluid RED; Cyto Order Verification Order Verified; Fluid Laterality LEFT PLEURAL FLUID; PATH Referral YES
[2024-01-07 18:45] LABS: Body Fluid Polynuclear #Cells 0.909; Body Fluid WBC 1494 /uL; Monocytes # Body Fluid 0.585
--- NOTE | 2024-01-07 19:01 | PC.NURSE ---
Shift summary: Patient rested in bed throughout the day due to desaturating with activity. Lisinopril and metoprolol held and delayed due to hypotension. Patient did become tachycardic today which resolved after she received the late dose of metoprolol. Left side Thoracentesis today, 1400mL of pleural fluid drained. Samples sent to lab.
[2024-01-07 19:33] LABS: Albumin Body Fluid 2.2 g/dL; Cholesterol Body Fluid 127 mg/dL (0-200); Fluid Alkaline Phos. 21 IU/L; LDH Body Fluid 533 U/L; Triglycerides Body Fluid 33 mg/dL (0-150); Uric Acid Body Fluid 5 mg/dL
[2024-01-07 19:34] LABS: Total Protein Pleural Fluid 3.4 g/dL
[2024-01-07] MEDS: enoxaparin 80 mg/0.8 mL Syringe 70 MG SUBCUT (20:21)
[2024-01-08] VITALS (34 sets, daily range): BP systolic 104–137; BP diastolic 62–85; PULSE 90–113; RESP 15–24; TEMP 36.6–37; O2SAT 82–97; BMI 24.5
[2024-01-08] MEDS: ipratropium-albuterol 3 mL Neb INHALATION ×4 (00:19→11:04)
[2024-01-08] MEDS: predniSONE 5 mg Tablet PO (00:25)
--- NOTE | 2024-01-08 03:44 | PC.NURSE ---
Dr. Lobo was notified that the patient has only put out 100 mls of urine in 9 hours. He ordered to wait and see what the morning labs would look like to asses kidney function.
[2024-01-08 03:59] LABS: Basophils % 0.4 %; Eosinophils # 0.1 10^3/uL (0.0-0.8); Eosinophils % 0.6 %; Hematocrit 41.4 % (36-47); Lymphocytes # 0.2 10^3/uL (0.8-4.8); Lymphocytes % 2.4 %; Mean Corpuscular HGB Conc 31.6 g/dL (30-55); Mean Platelet Volume 10.3 fL (7.4-10.4); Monocytes # 0.5 10^3/uL (0.2-0.9); Monocytes % 5.3 %; Neutrophils # 8.88 10^3/uL (1.8-7.7); Neutrophils % 87.6 %; Nucleated Red Blood Cells % 0 %; Platelet Count 282 10^3/cmm (157-399); Red Blood Count 4.36 10^6/uL (3.85-5.65); Red Cell Distribution Width 13.3 % (12.1-15.1); White Blood Count 10.14 10^3/uL (3.29-11.43)
[2024-01-08 04:19] LABS: Blood Urea Nitrogen 18 mg/dL (8-23); Calcium 8.3 mg/dL (8.5-10.5); Carbon Dioxide 28 mmol/L (22-29); Chloride 98 mmol/L (98-107); Glomerular Filtration Rate 56.6 mL/min (90-130); Glucose 107 mg/dL (65-115); Osmolality Calculated 282 mOsm/kg (285-295); Sodium 135 mmol/L (136-145)
[2024-01-08 04:22] LABS: Creatinine Clr Calc Pharmacy 58.3667
[2024-01-08] MEDS: levothyroxine 150 mcg Tablet PO (05:08)
[2024-01-08] MEDS: metoprolol tartrate 25 mg Tablet PO (08:10)
[2024-01-08] MEDS: magnesium oxide 400 mg tablet PO (08:10)
[2024-01-08] MEDS: enoxaparin 80 mg/0.8 mL Syringe 70 MG SUBCUT (08:10)
[2024-01-08] MEDS: FUROsemide 20 mg Tablet PO (08:10)
[2024-01-08] MEDS: lactobacillus 1 Tablet 1 TAB PO (08:10)
[2024-01-08] MEDS: lisinopril 20 mg Tablet PO (08:10)
[2024-01-08] MEDS: hydroxychloroquine 200 mg Tablet PO (08:10)
[2024-01-08] MEDS: NON-FORMULARY MEDICATION (Sildenafil (Pulm.Hypertension) 20 mg tablet) 20 EACH PO (08:11)
[2024-01-08] MEDS: TRELEGY ELLIPTA 1 EACH INHALATION (08:12)
--- NOTE | 2024-01-08 09:17 | PC.SOCIAL ---
IMM Update IMM signed and dated and reviewed with patient, who verbalized understanding. Copy provided.
--- NOTE | 2024-01-08 09:40 | PM.DCS ---
Discharge Providers Date of Admission: 01/05/24 22:26 Date of Discharge: January 08, 2024 Attending Provider at Admission: Paco Linton Attending Provider at Discharge: Ralph Rivera MD Primary Care Provider: Bam Calvillo MD Diagnoses at Discharge Discharge Diagnosis (1) Pleural effusion, left: Status: Acute (2) COPD (chronic obstructive pulmonary disease): Status: Acute Qualifiers: COPD type: emphysema Emphysema type: unspecified Qualified Code(s): J43.9 - Emphysema, unspecified (3) Acute and chronic respiratory failure with hypoxia: Status: Acute (4) Pulmonary embolism: Status: Acute Qualifiers: Acute cor pulmonale presence: without acute cor pulmonale Chronicity: acute Pulmonary embolism type: other Qualified Code(s): I26.99 - Other pulmonary embolism without acute cor pulmonale (5) Pulmonary hypertension: Status: Acute (6) Goals of care, counseling/discussion: Status: Acute Reason for Visit Reason for Visit: SOB Hospital Course Hospital Course 58-year-old female with significant pulmonary hypertension, COPD, CHF, rheumatoid arthritis, chronic hypoxia requiring 5 L at baseline, loculated left-sided pleural effusion not amenable for safe thoracentesis, history of cervical cancer left lung mass unable to do biopsy due to significant bullous emphysematous changes undergoing radiation therapy since August 2023 present to the hospital for worsening of shortness of breath, she was requiring 10 to 12 L of oxygen, she was diagnosed with pulmonary embolism, initially we used Lovenox however it was switched to heparin for thoracentesis by Dr. Jones, 1.5 L removed, her oxygen, improved to 6 L which is her home requirement, will start looking into LTAC facility because her ox requirement has improved significantly, patient is in strong denial she thinks she will get better and she is present to God to cure her cancer, she has changed her CODE STATUS to DNR/DNI. Her only family member is a son who lives in [place]. At the time of discharge patient is stating that she will not be able to use Lovenox which I prescribed secondary to underlying history of cancer, agreeable to use Eliquis Dr. Jones is leaving at end of January, she won't have any economic research analyst in [place] anymore, if she requires further intervention or evaluation/treatment in [place] we would recommend transfer to [place] from the ER because of her complex emphysematous underlying lung condition with lung mass and pulm embolism Physical Exam Narrative: Awake and alert GCS 15 Nonfocal exam Currently on 6 L Pleasant and cooperative Urinary Catheter Management: Francois: Cath Placed During This Visit: yes Reason for Continuing Indwelling Catheter: Accurate Measurement of Urinary Output in Critically Ill Patients Urinary Catheter Date of Insertion: 01/07/24 Urinary Catheter Time of Insertion: 21:37 Discharge Data Studies Completed and Pending Completed Studies During Hospitalization Category Date Time Status CTA PE [CT angio chest PE protcl [id number]] Stat Cat Scan 01/05/24 18:01 Completed XR chest 1V portable [id number] Routine Exams 01/07/24 17:46 Completed XR chest 1V portable [id number] Stat Exams 01/05/24 17:25 Completed CV. echo complete* [id number] Routine Ultrasound 01/06/24 03:31 Completed Pending at discharge Category Date Time Status Amylase, Peritoneal Fluid Routine Lab 01/07/24 17:40 Received Amylase, Pleural Fluid Routine Lab 01/07/24 17:40 Received Anaerobic Culture Routine Lab 01/07/24 17:40 Received Basic Metabolic Panel AM LABS Lab 01/09/24 04:00 Ordered Body Fluid Culture & GS Routine Lab 01/07/24 17:40 Received Complete Blood Count w/Auto AM LABS Lab 01/09/24 04:00 Ordered Fungal Culture not HR/SK/BL Routine Lab 01/07/24 17:40 Received Mycobacteria, Culture w/Fluor Routine Lab 01/07/24 17:40 Received Sputum Culture and Gram Stain Routine Lab 01/06/24 00:19 Results Cytology [PTH] Routine Pth 01/07/24 18:03 Received Radiology Impressions Chest CTA 01/05/24 18:01 IMPRESSION: 1. Large pulmonary embolus layering along the posterior wall of the left main pulmonary artery extending into the left lower lobe. 2. There is evidence of right heart strain with an RV to LV ratio of 1.3. 3. Severe emphysematous changes throughout both lungs with an upper lobe predominance. 4. Large left-sided pleural effusion with complete consolidation of the left lower lobe. 5. There is a 4.7 x 3.0 cm mass in the left hilum (series 6, image 255) concerning for neoplasm. COMMENTS: The presence of pulmonary emphysema on CT is an independent risk factor for lung cancer. In the absence of a history or active diagnosis of lung cancer, it is recommended that this patient with emphysema be evaluated for enrollment in a low dose CT lung cancer screening program. ADDENDUM: 01/05/24 5829 THIS REPORT CONTAINS FINDINGS THAT MAY BE CRITICAL TO PATIENT CARE. I requested a conference call with the covering provider on review of the case to discuss the findings. I was notified by [facility] staff that BLADE Garcia had received the report, was aware of the findings, and chose not to speak directly. Chest X-Ray 01/07/24 17:46 IMPRESSION: Left basilar pleuroparenchymal opacity correlates with the CT findings. Bullous emphysematous changes are noted most prominent in the upper lung philippe. Laboratory Results WBC 10.14 10^3/uL (3.29-11.43) 01/08/24 03:40 RBC 4.36 10^6/uL (3.85-5.65) 01/08/24 03:40 Hgb 13.10 g/dL (11.27-16.99) 01/08/24 03:40 Hct 41.4 % (36-47) 01/08/24 03:40 MCV 95.0 fl (85-98) 01/08/24 03:40 MCH 30.0 pg (27-33) 01/08/24 03:40 MCHC 31.6 g/dL (30-55) 01/08/24 03:40 RDW 13.3 % (12.1-15.1) 01/08/24 03:40 Plt Count 282 10^3/cmm (157-399) 01/08/24 03:40 MPV 10.3 fL (7.4-10.4) 01/08/24 03:40 Neut % (Auto) 87.6 % 01/08/24 03:40 Lymph % (Auto) 2.4 % 01/08/24 03:40 [place] % (Auto) 5.3 % 01/08/24 03:40 Eos % (Auto) 0.6 % 01/08/24 03:40 Baso % (Auto) 0.4 % 01/08/24 03:40 Neut # (Auto) 8.88 10^3/uL (1.8-7.7) H 01/08/24 03:40 Lymph # (Auto) 0.2 10^3/uL (0.8-4.8) L 01/08/24 03:40 [place] # (Auto) 0.5 10^3/uL (0.2-0.9) 01/08/24 03:40 Eos # (Auto) 0.1 10^3/uL (0.0-0.8) 01/08/24 03:40 Baso # (Auto) 0.0 10^3/uL (0.0-0.1) 01/08/24 03:40 Nucleated RBC % (auto) 0 % 01/08/24 03:40 Nucleated RBCs # 0.0 /100WBC 01/08/24 03:40 Differential Comment Yes 01/07/24 17:40 PT 13.20 SECONDS (12.1-14.9) 01/05/24 17:15 INR 0.97 (0.8-1.2) 01/05/24 17:15 APTT 88.2 SECONDS (23.9-36.7) H 01/07/24 11:36 D-Dimer 2.93 ug/mLFEU (0-0.59) H 01/05/24 17:15 Specimen Type Arterial 01/05/24 21:34 Sample Site Radial, right 01/05/24 21:34 ABG pH 7.40 (7.35-7.45) 01/05/24 21:34 ABG pCO2 46.4 mmHg (35-45) H 01/05/24 21:34 ABG pO2 168.0 mmHg (80.0-100.0) H 01/05/24 21:34 ABG PO2/FiO2 Ratio 0 01/05/24 21:34 ABG HCO3 29.0 mmol/L (22-26) H 01/05/24 21:34 ABG Base Excess 3.5 mmol/L (-2.0-2.0) H 01/05/24 21:34 Quirino Test Pos 01/05/24 21:34 Hematocrit 38.7 % (37-47) 01/05/24 21:34 O2 Delivery Device Nrb 01/05/24 21:34 O2 Liters/Min 15.0 % 01/05/24 21:34 FiO2 100.0 % 01/05/24 21:34 [employer] ID Ed 01/05/24 21:34 Sodium 135 mmol/L (136-145) L 01/08/24 03:40 Potassium 4.0 mmol/L (3.5-5.1) 01/08/24 03:40 Chloride 98 mmol/L (98-107) 01/08/24 03:40 Carbon Dioxide 28 mmol/L (22-29) 01/08/24 03:40 Anion Gap 13.0 (5-19) 01/08/24 03:40 BUN 18 mg/dL (8-23) 01/08/24 03:40 Creatinine 1.0 mg/dL (0.5-0.9) H 01/08/24 03:40 GFR Calculation 56.6 mL/min (90-130) L 01/08/24 03:40 Glucose 107 mg/dL (65-115) 01/08/24 03:40 Calculated Osmolality 282 mOsm/kg (285-295) L 01/08/24 03:40 Calcium 8.3 mg/dL (8.5-10.5) L 01/08/24 03:40 Magnesium 2.3 mg/dL (1.7-2.3) 01/05/24 17:15 Total Bilirubin 0.4 mg/dL (0.15-1.2) 01/05/24 17:15 AST 24 U/L (0-32) 01/05/24 17:15 ALT 16 U/L (0-33) 01/05/24 17:15 Alkaline Phosphatase 66 U/L (35-105) 01/05/24 17:15 Troponin T Baseline 18 ng/L (0-10) H 01/05/24 17:15 NT-Pro-B Natriuret Pep 283 pg/mL (0-125) H 01/05/24 17:15 Total Protein 6.8 g/dL (6.6-8.7) 01/05/24 17:15 Albumin 3.4 g/dL (3.5-5.2) L 01/05/24 17:15 Globulin 3.4 g/dL (1.3-4.6) 01/05/24 17:15 Fluid Color Red 01/07/24 17:40 Fluid Appearance Cloudy 01/07/24 17:40 Fluid Specific Grav 30.000 01/07/24 17:40 Fluid pH 8.0 01/07/24 17:40 Fluid WBC 1494 /uL 01/07/24 17:40 Fluid RBC 48.000 10^3/uL 01/07/24 17:40 Fld Polynuclear WBCs # 0.909 01/07/24 17:40 Fld Polynuclear WBCs % 60.800 % 01/07/24 17:40 Fl Mononucl WBCs #(Auto) 0.585 01/07/24 17:40 Fl Mononuclear % Auto 39.200 % 01/07/24 17:40 Fld Crystal Laterality Left pleural fluid 01/07/24 17:40 Fluid Glucose 101.0 mg/dL 01/07/24 17:40 Fluid Albumin 2.2 g/dL 01/07/24 17:40 Fluid LDH 533 U/L 01/07/24 17:40 Fluid Alk Phosphatase 21 IU/L 01/07/24 17:40 Fluid Cholesterol 127 mg/dL (0-200) 01/07/24 17:40 Fluid Triglycerides 33 mg/dL (0-150) 01/07/24 17:40 Fluid Uric Acid 5 mg/dL 01/07/24 17:40 Pleural Total Protein 3.4 g/dL 01/07/24 17:40 Adenovirus (PCR) Cancelled 01/06/24 00:19 C. pneumoniae DNA (PCR) Cancelled 01/06/24 00:19 Coronavirus 229E (PCR) Cancelled 01/06/24 00:19 Human Metapneumovir PCR Cancelled 01/06/24 00:19 Influenza A (H1) PCR Cancelled 01/06/24 00:19 Influ A (H1/09) PCR Cancelled 01/06/24 00:19 Influenza A (H3) PCR Cancelled 01/06/24 00:19 Influenza Type A (PCR) Cancelled 01/06/24 00:19 Influenza Type B (PCR) Cancelled 01/06/24 00:19 M. pneumoniae (PCR) Cancelled 01/06/24 00:19 Parainfluenza 1 (PCR) Cancelled 01/06/24 00:19 Parainfluenza 2 (PCR) Cancelled 01/06/24 00:19 Parainfluenza 3 (PCR) Cancelled 01/06/24 00:19 Parainfluenza 4 (PCR) Cancelled 01/06/24 00:19 RSV Type A (PCR) Cancelled 01/06/24 00:19 RSV Type B (PCR) Cancelled 01/06/24 00:19 Entero/Rhino (PCR) Cancelled 01/06/24 00:19 SARS-CoV-2 (PCR) Cancelled 01/06/24 00:19 Vitals Last Vital Signs Temp 97.9 F 01/08/24 08:00 Pulse 108 H 01/08/24 08:30 Resp 19 H 01/08/24 08:30 BP 112/73 01/08/24 08:30 Pulse Ox 89 L 01/08/24 08:30 O2 Del Method Nasal Cannula 01/08/24 07:20 O2 Flow Rate 6 01/08/24 07:20 Discharge Plan Discharge Patient Disposition: Home Condition: Stable Prescriptions: New Eliquis 5 mg tablet 5 mg PO BID Qty: 120 3RF Continued cholecalciferol (vitamin D3) 50 mcg (2,000 unit) tablet 2,000 unit PO DAILY prednisone 5 mg tablet See Rx Instructions PO .COMPLEX PRN (Reason: joint pain flare) Qty: 60 1RF Rx Instructions: take 1-2 tabs daily for 3-7 days prn joint pain flare orally PRN; (DME) nebulizer accessories Kit See Rx Instructions .ROUTE .MEDSUPPLY Qty: 2 0RF Rx Instructions: As directed sildenafil (pulm.hypertension) 20 mg tablet 20 mg PO TID 90 Days Qty: 270 6RF albuterol sulfate [Ventolin HFA] 90 mcg/actuation HFA aerosol inhaler 2 puff INHALATION Q6H PRN (Reason: shortness of breath or wheezing) Qty: 8.5 5RF azelastine-fluticasone 137-50 mcg/spray spray,non-aerosol 1 spray intranasal BID Qty: 23 3RF Rx Instructions: administer into each nostril hydroxychloroquine 200 mg tablet 200 mg PO BID Qty: 60 3RF Rinvoq 15 mg tablet extended release 24 hr 15 mg PO DAILY Qty: 30 3RF furosemide [Lasix] 20 mg tablet 20 mg PO DAILY PRN (Reason: edema) Qty: 30 0RF potassium chloride 10 mEq capsule, extended release 10 meq PO DAILY PRN (Reason: Diuretic therapy) 30 Days Qty: 30 0RF potassium chloride 20 mEq tablet extended release 20 meq PO DAILY Qty: 10 0RF albuterol sulfate 2.5 mg /3 mL (0.083 %) solution for nebulization 2.5 mg inhalation Q4H PRN (Reason: SHORTNESS OF BREATH/WHEEZING) metoprolol tartrate 25 mg tablet 25 mg PO DAILY multivitamin Tablet 1 tab PO DAILY magnesium 250 mg Tablet 500 mg PO DAILY curcumin-phosphatidylcholine 500 mg Capsule 500 mg PO DAILY levothyroxine 150 mcg tablet 150 mcg PO DAILY ketoconazole 2 % shampoo See Rx Instructions .ROUTE .COMPLEX Rx Instructions: Apply TO SCALP and face two TO three times PER week and allow TO sit FIVE minutes before rinsing cetirizine 10 mg tablet 10 mg PO DAILY lisinopril 20 mg tablet 20 mg PO DAILY sodium chloride 0.65 % Aerosol,[place] 2 spray INTRANASAL QID PRN (Reason: Nasal Congestion) acetylcysteine [NAC] 600 mg Capsule 600 mg PO DAILY Discontinued potassium citrate 99 mg Capsule 99 mg PO DAILY Hair, Skin and Nails (biotin) 10,000 mcg Tablet,Chewable 10,000 mcg PO DAILY ashwagandha extract 120 mg Capsule 120 mg PO DAILY aloe vera 25 mg Capsule 25 mg PO BID valerian root 450 mg Capsule 450 mg PO BEDTIME Beet Root 500 mg PO DAILY PRN (Reason: unknown) Capsimax 150 mg PO DAILY PRN (Reason: supplement) Discharge Orders: Discharge Order (Routine); Ordered 01/08/24 Ordered By: Ralph Rivera Referrals: Bam Calvillo MD [Primary Care Provider] - 01/14/24 10:45 am Discharge Diet: Cardiac Discharge Activity: Increase activity as tolerated Patient Instructions: Enoxaparin (By injection) (Lovenox), Pulmonary Embolism (DC), COPD (Chronic Obstructive Pulmonary Disease) (DC), Pleural Effusion (DC), COPD Stoplight, Opioid Safety Discharge Attestations Time Spent in Discharge Care*: greater than 30 min Quality Metrics Clinical Quality Measures [ No reported AMI, CVA or VTE this stay] Coding Level of Care Code Acute Code for Chg Fwd Diagnoses Pleural effusion, left J90 Pulmonary emphysema, unspecified emphysema type J43.9 COPD type: emphysema Emphysema type: unspecified Acute and chronic respiratory failure with hypoxia J96.21 Pulmonary embolism I26.99 Acute cor pulmonale presence: without acute cor pulmonale Chronicity: acute Pulmonary embolism type: other Pulmonary hypertension I27.20 Goals of care, counseling/discussion Z71.89
--- NOTE | 2024-01-08 12:50 | PC.NURSE ---
Educated patient on the life threatening implication of refusing [facility] services. Patient currently on 6 liters nasal cannula. Patient has shortness of breath upon physical exertion. All discharge education given to patient. All questions and concerns addressed prior to discharge. All IVs and monitoring equipment removed.
--- NOTE | 2024-01-08 14:00 | PC.NURSE ---
Patient left unit with EMS staff at 1350.
[2024-01-13 23:45] LABS: Amylase, Peritoneal Fluid 19 U/L; Amylase, Pleural Fluid 19 U/L
== END 2024-01-08 13:50 | disposition home or self-care (01) | DRG 175 ==
LOC: ER 20:40 → ICU 22:27
PROVIDERS: Internal Medicine; Internal Medicine Pulmonary Disease; Admitting Provider Internal Medicine; Emergency Provider Emergency Medicine; PCP Family Medicine; Visit Provider Internal Medicine
DX: I26.99 Other pulmonary embolism without acute cor pulmonale (principal); J96.21 Acute and chronic respiratory failure with hypoxia; J90 Pleural effusion, not elsewhere classified; Z66 Do not resuscitate; Z99.81 Dependence on supplemental oxygen; Z87.891 Personal history of nicotine dependence; R91.1 Solitary pulmonary nodule; E03.9 Hypothyroidism, unspecified; J84.10 Pulmonary fibrosis, unspecified; M05.89 Other rheumatoid arthritis with rheumatoid factor of multiple sites; L30.9 Dermatitis, unspecified; Z86.16 Personal history of COVID-19; I27.20 Pulmonary hypertension, unspecified; I50.9 Heart failure, unspecified; J43.9 Emphysema, unspecified
CPT/HCPCS: 36415; 36600; 51702; 71045; 71275; 80048; 80053; 80503; 82042; 82150; 82465; 82803; 82945; 83615; 83735; 83880; 83986; 84075; 84157; 84315; 84478; 84484; 84560; 85025; 85049; 85378; 85610; 85730; 87015; 87070; 87075; 87102; 87116; 87205; 87206; 87801; 88305; 89050; 93005; 93306; 94640; 94664; 96372; 96374; 96376; 99285; J1644; J1650; J7512; Q9967

== ENCOUNTER → 2024-01-10 09:45 | Outpatient (BNVA) | payer MEDICARE, MEDICAID, SELFPAY | PROVIDERS: PCP Family Medicine; Visit Provider Internal Medicine Pulmonary Disease | DX: Z09 Encounter for follow-up examination after completed treatment for conditions other than malignant neoplasm (principal); R91.1 Solitary pulmonary nodule; J96.21 Acute and chronic respiratory failure with hypoxia; J43.9 Emphysema, unspecified; J30.89 Other allergic rhinitis; I26.99 Other pulmonary embolism without acute cor pulmonale; R91.8 Other nonspecific abnormal finding of lung field; Z99.81 Dependence on supplemental oxygen; Z87.891 Personal history of nicotine dependence | CPT/HCPCS: 99214 ==

== ENCOUNTER 2024-01-15 16:31 | Inpatient (IN) | payer MEDICARE, MEDICAID, SELFPAY ==
[2024-01-15] VITALS (69 sets, daily range): BP systolic 122–148; BP diastolic 73–104; PULSE 100–133; RESP 17–57; TEMP 36.5–36.8; O2SAT 81–97; BMI 24.3; BMI 24.5
--- NOTE | 2024-01-15 16:33 | XRR_ITS ---
PROCEDURE INFORMATION: Exam: XR Chest Exam date and time: 01/15/2024 4:46 PM Age: 58 years old Clinical indication: Shortness of breath; Additional info: SOB TECHNIQUE: Imaging protocol: Radiologic exam of the chest. Views: 1 view. COMPARISON: CR (CHEST, ) 01/07/2024 6:15 PM FINDINGS: Lungs: Patchy infiltrate involves the right lower lung field. Pleural spaces: There is a very large left-sided pleural effusion which occupies most of the left hemithorax. There is compression of the left lung centrally. Heart/Mediastinum: Unremarkable. No cardiomegaly. Bones/joints: Unremarkable. XR/XR chest 1V portable [id number] IMPRESSION: 1. Worsening large left pleural effusion 2. Stable right basilar infiltrate
--- NOTE | 2024-01-15 16:41 | ECG_ITS ---
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 Measurements Intervals [place] Rate: 131 P: 51 PA: 125 QRS: 25 QRSD: 78 T: 31 QT: 267 QTc: 395 Interpretive Statements SINUS TACHYCARDIA INDETERMINATE AXIS LOW QRS VOLTAGE IN PRECORDIAL LEADS [QRS DEFLECTION < 1.0 mV IN CHEST LEADS] POSSIBLE RIGHT VENTRICULAR CONDUCTION DELAY [RSR (QR) IN V1/V2] Compared to ECG 01/06/2024 20:30:56 Low QRS voltage now present Electronically Signed On 01-15-2024 17:02:31 CDT by Marcelino Morales M.D. [email or web address]
--- NOTE | 2024-01-15 16:44 | ED_ITS ---
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 Patient is in distress she denies any pain denies any fever. Patient's DNR/DNI had she did not tolerate CPAP in the EMS site try to get her to tolerate BiPAP. She adamantly refuses trying BiPAP Associated symptoms: Deny abdominal pain, chest pain, fever(s), nausea or vomiting Review of Systems 2 Const: Denies: fever(s), chills, body aches or change in appetite ENMT: Denies: throat pain or dental pain Card: Denies: chest pain Resp: Reports: dyspnea GI: Denies: abdominal pain, nausea, vomiting or diarrhea Musc: Denies: neck pain or back pain Skin/Breast: Denies: rash Neuro: Denies: headache(s) PFSH ED 2 PFSH: Medical History Goals of care, counseling/discussion Pulmonary hypertension Pleural effusion, left PE (pulmonary thromboembolism) Respiratory failure with hypoxia Pulmonary embolism COPD exacerbation Left lower lobe pulmonary nodule Sinus tachycardia COVID Acute and chronic respiratory failure with hypoxia Pneumonia Suspected 2018-nCoV infection CAP (community acquired pneumonia) Eczema Allergic conjunctivitis Seropositive rheumatoid arthritis of multiple sites Chronic respiratory failure with hypoxia Immunization counseling Pulmonary fibrosis High risk medication use Seropositive rheumatoid arthritis COPD (chronic obstructive pulmonary disease) CHF (congestive heart failure) May use lasix 20 mg when needed for leg swelling. -f/u in 2-3 months. Pulmonary hypertension Adenocarcinoma of cervix Acquired hypothyroidism Surgical History H/O emergency section Family History Mother Cancer Lung disease Chronic kidney disease (CKD) Family/Other Cancer Grandfather Cancer Other Rheumatoid arthritis Denies family history of Colon cancer Ovarian cancer Diabetes Heart disease Hypercholesteremia Breast cancer Hypertension Uterine cancer Thyroid disease Stroke Social History Smoking and tobacco/nicotine status: former use of tobacco/nicotine Quit status (tobacco/nicotine): has quit using Year quit tobacco: 2012 Former quit date comment: 1 ppd X 34 years Physical Exam 2 Const: COMMON NORMALS: patient oriented x3 GENERAL APPEARANCE: in distress and ill appearing HENMT: COMMON NORMALS: normocephalic and atraumatic HEAD & SCALP: n ormocephalic and atraumatic Eye: COMMON NORMALS: Equal, round and reactive pupils present and EOMs intact bilaterally PUPIL: Yes Equal, round and reactive pupils present Neck/C-Spine: COMMON NORMALS: full ROM and supple Chest: COMMONS NORMALS: normal inspection of the chest and normal palpation of entire chest wall Resp: EFFORT & INSPECTION: Yes tachypneic and Yes respiratory distress A USCULTATION: rales and wheezes Cardio: COMMON NORMALS: regular rhythm and No murmurs present (Cardio) R ATE: tachycardic RHYTHM: regular rhythm GI: COMMON NORMALS: Normal to inspection, nondistended, normoactive bowel sounds present, Soft to palpation, non-tender and no masses PALPATION: Yes Soft to palpation Extremity: COMMON NORMALS: normal to inspection and full ROM Neuro: COMMON NORMALS: patient oriented x3, moves all extremities and no focal motor deficits Psych: COMMON NORMALS: mental status grossly normal, Normal thought process present and cooperative THOUGHT PROCESS: Normal thought process present Skin: COMMON NORMALS: no rashes or lesions noted and no wounds GENERAL SKIN EXAM: no rashes or lesions noted Course 2 Vital Signs: Vital signs: Vital Signs Temperature 98.2 F 01/15/24 16:32 Pulse Rate 131 H 01/15/24 17:25 Respiratory Rate 40 H 01/15/24 17:25 Blood Pressure 139/95 01/15/24 17:25 Pulse Oximetry 91 01/15/24 17:25 Oxygen Delivery Me thod BiPAP 01/15/24 17:25 Oxygen Flow Rate 11 01/15/24 16:55 Fraction of Inspir ed Oxygen 65 01/15/24 17:25 MDM - SOB/Dyspnea Medical Decision Making Patient presents in respiratory distress and recently been discharged from air history of COPD hypoxia PE and pleural effusion or pleural effusion here is worsened did get her to tolerate BiPAP she is a DNR DNI I spoke to the hospitalist will admit at this time. Medical Records I reviewed the patient's medical records. Lab Data I reviewed the patient's lab results. 01/15/24 16:40 01/15/24 16:40 Labs/Radiology: Radiology Impressions Chest X-Ray 01/15/24 16:33 IMPRESSION: 1. Worsening large left pleural effusion 2. Stable right basilar infiltrate Laboratory Results WBC 11.19 10^3/uL (3.29-11.43) 01/15/24 16:40 RBC 4.43 10^6/uL (3.85-5.65) 01/15/24 16:40 Hgb 13.20 g/dL (11.27-16.99) 01/15/24 16:40 Hct 41.7 % (36-47) 01/15/24 16:40 MCV 94.1 fl (85-98) 01/15/24 16:40 MCH 29.8 pg (27-33) 01/15/24 16:40 MCHC 31.7 g/dL (30-55) 01/15/24 16:40 RDW 13.9 % (12.1-15.1) 01/15/24 16:40 Plt Count 425 10^3/cmm (157-399) H 01/15/24 16:40 MPV 10.2 fL (7.4-10.4) 01/15/24 16:40 Neut % (Auto) 79.1 % 01/15/24 16:40 Lymph % (Auto) 6.3 % 01/15/24 16:40 [place] % (Auto) 8.0 % 01/15/24 16:40 Eos % (Auto) 1.5 % 01/15/24 16:40 Baso % (Auto) 0.6 % 01/15/24 16:40 Neut # (Auto) 8.85 10^3/uL (1.8-7.7) H 01/15/24 16:40 Lymph # (Auto) 0.7 10^3/uL (0.8-4.8) L 01/15/24 16:40 [place] # (Auto) 0.9 10^3/uL (0.2-0.9) 01/15/24 16:40 Eos # (Auto) 0.2 10^3/uL (0.0-0.8) 01/15/24 16:40 Baso # (Auto) 0.1 10^3/uL (0.0-0.1) 01/15/24 16:40 Nucleated RBC % (auto) 0 % 01/15/24 16:40 Nucleated RBCs # 0.0 /100WBC 01/15/24 16:40 PT 13.20 SECONDS (12.1-14.9) 01/15/24 16:40 INR 0.97 (0.8-1.2) 01/15/24 16:40 Specimen Type Arterial 01/15/24 16:36 Sample Site Radial, right 01/15/24 16:36 ABG pH 7.39 (7.35-7.45) 01/15/24 16:36 ABG pCO2 52.4 mmHg (35-45) H 01/15/24 16:36 ABG pO2 53.7 mmHg (80.0-100.0) L 01/15/24 16:36 ABG HCO3 31.3 mmol/L (22-26) H 01/15/24 16:36 ABG Base Excess 5.0 mmol/L (-2.0-2.0) H 01/15/24 16:36 Quirino Test Pos 01/15/24 16:36 Hematocrit 40.8 % (37-47) 01/15/24 16:36 Hgb O2 Saturation 85.2 % (95-100) L 01/15/24 16:36 Carboxyhemoglobin 1.6 %THgb (0.4-20.1) 01/15/24 16:36 Methemoglobin 0.2 % (0.4-1.5) L 01/15/24 16:36 Total Hemoglobin 13.3 g/dL (12-16) 01/15/24 16:36 O2 Delivery Device Nrb 01/15/24 16:36 O2 Liters/Min 12.0 % 01/15/24 16:36 Nurse Sexual Assault ID [place] 01/15/24 16:36 All radiology interpretation(s) finalized by discharge EKG Data EKG 1: I personally reviewed and interpreted this EKG as follows: EKG Interpretation Date: 01/15/24 EKG interpretation time: 16:41 Interpretation: sinus tach hr [address] or wave abnormalities qrs 78 qtc 344 Critical Care Time 2 Critical Care Time: Critical Care Time: Yes Total Critical Care Time: 40 Attestation: The high probability of a clinically significant, sudden or life threatening deterioration of the patient's resp system(s) required my full and direct attention, intervention and personal management. The critical care time is as shown. This time is in addition to time spent performing any reported procedures but includes the following: [x] Data and vital sign review and interpretation [x] Patient assessment, examination and intervention [x] Documentation [x] Medication orders and management Discharge Plan Discharge Patient Disposition: Admitted As Inpatient Clinical Impression: Acute respiratory failure with hypoxemia, Pleural effusion, Pulmonary embolism Condition: Stable Coding Level of Care Code ED Manager It Training for Rahul Mata
[2024-01-15 16:47] LABS: ABG PCO2 52.4 mmHg (35-45); ABG PH Result 7.39 (7.35-7.45); Arterial Blood Gas Hematocrit 40.8 % (37-47); Blood Gas Allen Test Pos; Blood Gas Operator Identificat WALCI; Blood Gas Sample Site Radial, right; Blood Gas Sample Type Arterial; Carboxyhemoglobin 1.6 %THgb (0.4-20.1); HCO3 ABG 31.3 mmol/L (22-26); HGB O2 Sat 85.2 % (95-100); Methemoglobin 0.2 % (0.4-1.5); Oxygen Device NRB; PO2 ABG 53.7 mmHg (80.0-100.0); Total Hemoglobin 13.3 g/dL (12-16)
[2024-01-15 17:02] LABS: Basophils # 0.1 10^3/uL (0.0-0.1); Basophils % 0.6 %; Eosinophils # 0.2 10^3/uL (0.0-0.8); Eosinophils % 1.5 %; Hematocrit 41.7 % (36-47); Lymphocytes # 0.7 10^3/uL (0.8-4.8); Lymphocytes % 6.3 %; Mean Corpuscular HGB Conc 31.7 g/dL (30-55); Mean Corpuscular Hemoglobin 29.8 pg (27-33); Mean Corpuscular Volume 94.1 fl (85-98); Mean Platelet Volume 10.2 fL (7.4-10.4); Monocytes # 0.9 10^3/uL (0.2-0.9); Neutrophils # 8.85 10^3/uL (1.8-7.7); Neutrophils % 79.1 %; Nucleated Red Blood Cells % 0 %; Platelet Count 425 10^3/cmm (157-399); Red Blood Count 4.43 10^6/uL (3.85-5.65); Red Cell Distribution Width 13.9 % (12.1-15.1); White Blood Count 11.19 10^3/uL (3.29-11.43)
[2024-01-15] MEDS: LORazepam 2 mg/mL INJ 10 mL MDV 0.5 MG IVP (17:13)
[2024-01-15 17:23] LABS: INR 0.97 (0.8-1.2)
[2024-01-15 17:52] LABS: Alanine Aminotransferase 16 U/L (0-33); Albumin Level 3.2 g/dL (3.5-5.2); Alkaline Phosphatase 70 U/L (35-105); Anion Gap 15.5 (5-19); Aspartate Amino Transferase 25 U/L (0-32); Blood Urea Nitrogen 24 mg/dL (8-23); Calcium 9.4 mg/dL (8.5-10.5); Carbon Dioxide 30 mmol/L (22-29); Chloride 98 mmol/L (98-107); Creatinine Clr Calc Pharmacy 63.6866; Globulin 3.1 g/dL (1.3-4.6); Glomerular Filtration Rate 63.9 mL/min (90-130); Glucose 141 mg/dL (65-115); NT Pro B Type Natriuretic Pept 636 pg/mL (0-125); Osmolality Calculated 294 mOsm/kg (285-295); Potassium 4.5 mmol/L (3.5-5.1); Sodium 139 mmol/L (136-145); Total Bilirubin 0.3 mg/dL (0.15-1.2); Total Protein 6.3 g/dL (6.6-8.7)
[2024-01-15 18:11] LABS: Troponin(5th) Baseline 23 ng/L (0-10)
[2024-01-15 20:26] LABS: ABG PCO2 46.7 mmHg (35-45); Arterial Blood Gas Hematocrit 39.5 % (37-47); Base Excess ABG 3.5 mmol/L (-2.0-2.0); Blood Gas Sample Site Brachial, right; Blood Gas Sample Type Arterial; Carboxyhemoglobin 1.5 %THgb (0.4-20.1); HGB O2 Sat 93.6 % (95-100); Ionized Calcium Level - ABG 1.2 mmol/L (1.1-1.4); Methemoglobin 0.3 % (0.4-1.5); Oxygen Device BIPAP; Oxygen Saturation ABG 95.4; PO2 ABG 74.3 mmHg (80.0-100.0); PO2 FiO2 Ratio Arterial Blood 0; Potassium Level - ABG 4.9 mmol/L (3.5-5.0); Total Hemoglobin 12.9 g/dL (12-16)
[2024-01-15 20:30] LABS: Lactic Sepsis W/Reflex 1.8 mmol/L (0.5-2.2)
[2024-01-15 20:37] LABS: Procalcitonin 0.04 ng/mL (0-0.5)
[2024-01-15] MEDS: vancomycin 1,000 MG in sodium chloride 0.9% 250 ML 250 MG IV (21:56)
[2024-01-15] MEDS: methylPREDNISolone sod succ 40 mg/mL INJ IVP (21:57)
[2024-01-15] MEDS: piperacillin-tazobactam 3.375 GM in sodium chloride 0.9% (plus) 50 ML IV (21:57)
[2024-01-15] MEDS: FUROsemide 10 mg/mL SDV 4mL 40 MG IVP (21:57)
--- NOTE | 2024-01-15 21:59 | PM.HP ---
Providers/Chief Complaint Admitting Physician: Juan Oropeza MD Primary Care Provider: Bam Calvillo MD Chief Complaint: SOB History of Present Illness Chayito Small is a 58 year old female with pulmonary hypertension and COPD. She was recently admitted to hospital on 01/06/2024-for worsening shortness of breath-requiring 7 to 8 L supplemental oxygen at rest.. CTA 01/05/2024 showed large pulmonary embolism along posterior wall of left main pulmonary artery extending into left lower lobe with evidence of right heart strain with RV to LV ratio 1.3. There was large left-sided pleural effusion with complete consolidation of left lower lobe. There is 4.7 x 3 cm mass in the left hilum concerning for neoplasm. She underwent thoracentesis on 01/07/2024-drained 1.5 L hemorrhagic pleural fluid. By lights criteria fluid is exudative. Cytology shows atypical cells. She received Lovenox for PE and transitioned to Eliquis at discharge. She was previously diagnosed with PET avid LLL nodule in 04/2023- she was recommended to start radiation due to high clinical suspicion for ca however she refused at that time. She was unable to undergo any biospsies as it was felt that a biopsy would result in catastrophic pulmonary failure.She returned to the ER today with increasing shortness of breath. She was saturating 70% on her regular 5lpm supplemental home 02. ABg with hypoxia with p02 53 on 12lpm NRB. She needed to be placed on bipap upon arrival. Review of Systems General: Reports: ROS unobtainable due to medical condition Medications/Allergies Home Medications Medication Instructions Recorded Confirmed Last Taken Type nebulizer accessories #2 ea 01/14/20 01/10/24 Unknown Rx cholecalciferol (vitamin D3) 50 2,000 unit PO DAILY 08/21/21 01/10/24 12/24/23 History mcg (2,000 unit) tablet prednisone 5 mg tablet See Rx Instructions PO .COMPLEX 11/21/22 01/10/24 01/05/24 Rx PRN joint pain flare #60 tabs sildenafil (pulm.hypertension) 20 20 mg PO TID 90 days #270 tabs 02/04/23 01/10/24 01/05/24 Rx mg tablet albuterol sulfate 2.5 mg/3 mL 2.5 mg inhalation Q4H PRN 03/29/23 01/10/24 Unknown History (0.083 %) solution for nebulization SHORTNESS OF BREATH/WHEEZING curcumin-phosphatidylcholine 500 500 mg PO DAILY 03/29/23 01/10/24 01/04/24 History mg capsule magnesium 250 mg tablet 500 mg PO DAILY 03/29/23 01/10/24 12/24/23 History metoprolol tartrate 25 mg tablet 25 mg PO DAILY Blood Pressure 03/29/23 01/10/24 12/24/23 History multivitamin 1 tab PO DAILY 03/29/23 01/10/24 12/24/23 History albuterol sulfate 90 mcg/actuation 2 puff inhalation Q6H PRN 04/29/23 01/10/24 Unknown Rx aerosol inhaler (Ventolin HFA) shortness of breath or wheezing #8.5 grams azelastine 137 mcg-fluticasone 50 1 spray intranasal BID #23 grams 05/06/23 01/10/24 01/05/24 Rx mcg/spray nasal spray hydroxychloroquine 200 mg tablet 200 mg PO BID #60 tabs 11/12/23 01/10/24 01/05/24 Rx upadacitinib 15 mg tablet,extended 15 mg PO DAILY #30 tabs 11/12/23 01/10/24 01/05/24 Rx release 24 hr (Rinvoq) acetylcysteine 600 mg capsule (NAC) 600 mg PO DAILY 12/24/23 01/10/24 12/24/23 History cetirizine 10 mg tablet 10 mg PO DAILY 12/24/23 01/10/24 01/05/24 History ketoconazole 2 % shampoo See Rx Instructions .Route .COMPLEX 12/24/23 01/10/24 Unknown History levothyroxine 150 mcg tablet 150 mcg PO DAILY 12/24/23 01/10/24 01/05/24 History lisinopril 20 mg tablet 20 mg PO DAILY 12/24/23 01/10/24 12/24/23 History sodium chloride 0.65 % nasal spray 2 spray intranasal QID PRN Nasal 12/24/23 01/10/24 Unknown History aerosol Congestion furosemide 20 mg tablet (Lasix) 20 mg PO DAILY PRN edema #30 tabs 01/03/24 01/10/24 01/01/24 Rx potassium chloride 10 mEq 10 meq PO DAILY PRN Diuretic 01/03/24 01/10/24 Unknown Rx capsule,extended release therapy 30 days #30 caps potassium chloride 20 mEq 20 meq PO DAILY #10 tabs 01/03/24 01/10/24 01/05/24 Rx tablet,extended release apixaban 5 mg tablet (Eliquis) 5 mg PO BID #120 tabs 01/08/24 01/10/24 Unknown Rx Allergies Allergy/AdvReac Type Severity Reaction Status Date / Time cephalexin Allergy ADR-Nausea Verified 01/10/24 10:09 oxycodone [From Percodan] Allergy ADR-Halluci Verified 01/10/24 10:09 nating PFSH Acute PFSH: Medical History (Updated 01/15/24 @ 22:40 by Christy Peña MD) Pulmonary hypertension Goals of care, counseling/discussion Pulmonary hypertension Pleural effusion, left PE (pulmonary thromboembolism) Respiratory failure with hypoxia Pulmonary embolism COPD exacerbation Left lower lobe pulmonary nodule Sinus tachycardia COVID Acute and chronic respiratory failure with hypoxia Pneumonia Suspected 2018-nCoV infection CAP (community acquired pneumonia) Eczema Allergic conjunctivitis Seropositive rheumatoid arthritis of multiple sites Chronic respiratory failure with hypoxia Immunization counseling Pulmonary fibrosis High risk medication use Seropositive rheumatoid arthritis COPD (chronic obstructive pulmonary disease) CHF (congestive heart failure) May use lasix 20 mg when needed for leg swelling. -f/u in 2-3 months. Adenocarcinoma of cervix Acquired hypothyroidism Surgical History H/O emergency section Family History Mother Cancer Lung disease Chronic kidney disease (CKD) Family/Other Cancer Grandfather Cancer Other Rheumatoid arthritis Denies family history of Colon cancer Ovarian cancer Diabetes Heart disease Hypercholesteremia Breast cancer Hypertension Uterine cancer Thyroid disease Stroke Social History Smoking and tobacco/nicotine status: former use of tobacco/nicotine Quit status (tobacco/nicotine): has quit using Year quit tobacco: 2012 Former quit date comment: 1 ppd X 34 years Vitals/I&O/Wt Last Vital Signs Temp 98.2 F 01/15/24 16:32 Pulse 118 H 01/15/24 20:27 Resp 24 H 01/15/24 18:24 BP 125/83 01/15/24 18:24 Pulse Ox 95 01/15/24 20:27 O2 Del Method BiPAP 01/15/24 18:24 O2 Flow Rate 11 01/15/24 16:55 FiO2 65 01/15/24 20:27 Weight last 48 hrs Weight 66.224 kg Physical Exam Narrative: General: tachycardic, on Bipap HEENT: PERRLA, pupils bilaterally equal and reactive, pallors not present Chest: B/L coarse crackles. Diminished breath sounds CVS: S1-S2 regular, no murmurs, no tachycardia, no gallops, no rubs Abdomen: Soft, nontender, no organomegaly, bowel sounds present Neuro: No focal deficits Data 01/15/24 16:40 01/15/24 16:40 Other Labs: Radiology Impressions Chest X-Ray 01/15/24 16:33 IMPRESSION: 1. Worsening large left pleural effusion 2. Stable right basilar infiltrate Laboratory Results WBC 11.19 10^3/uL (3.29-11.43) 01/15/24 16:40 RBC 4.43 10^6/uL (3.85-5.65) 01/15/24 16:40 Hgb 13.20 g/dL (11.27-16.99) 01/15/24 16:40 Hct 41.7 % (36-47) 01/15/24 16:40 MCV 94.1 fl (85-98) 01/15/24 16:40 MCH 29.8 pg (27-33) 01/15/24 16:40 MCHC 31.7 g/dL (30-55) 01/15/24 16:40 RDW 13.9 % (12.1-15.1) 01/15/24 16:40 Plt Count 425 10^3/cmm (157-399) H 01/15/24 16:40 MPV 10.2 fL (7.4-10.4) 01/15/24 16:40 Neut % (Auto) 79.1 % 01/15/24 16:40 Lymph % (Auto) 6.3 % 01/15/24 16:40 [place] % (Auto) 8.0 % 01/15/24 16:40 Eos % (Auto) 1.5 % 01/15/24 16:40 Baso % (Auto) 0.6 % 01/15/24 16:40 Neut # (Auto) 8.85 10^3/uL (1.8-7.7) H 01/15/24 16:40 Lymph # (Auto) 0.7 10^3/uL (0.8-4.8) L 01/15/24 16:40 [place] # (Auto) 0.9 10^3/uL (0.2-0.9) 01/15/24 16:40 Eos # (Auto) 0.2 10^3/uL (0.0-0.8) 01/15/24 16:40 Baso # (Auto) 0.1 10^3/uL (0.0-0.1) 01/15/24 16:40 Nucleated RBC % (auto) 0 % 01/15/24 16:40 Nucleated RBCs # 0.0 /100WBC 01/15/24 16:40 PT 13.20 SECONDS (12.1-14.9) 01/15/24 16:40 INR 0.97 (0.8-1.2) 01/15/24 16:40 Specimen Type Arterial 01/15/24 20:15 Sample Site Brachial, right 01/15/24 20:15 ABG pH 7.40 (7.35-7.45) 01/15/24 20:15 ABG pCO2 46.7 mmHg (35-45) H 01/15/24 20:15 ABG pO2 74.3 mmHg (80.0-100.0) L 01/15/24 20:15 ABG PO2/FiO2 Ratio 0 01/15/24 20:15 ABG HCO3 29.0 mmol/L (22-26) H 01/15/24 20:15 ABG O2 Saturation 95.4 01/15/24 20:15 ABG Base Excess 3.5 mmol/L (-2.0-2.0) H 01/15/24 20:15 Quirino Test N/a 01/15/24 20:15 A-a O2 Gradient 43.0 mmHg (5-10) H 01/15/24 20:15 Hematocrit 39.5 % (37-47) 01/15/24 20:15 Hgb O2 Saturation 93.6 % (95-100) L 01/15/24 20:15 Carboxyhemoglobin 1.5 %THgb (0.4-20.1) 01/15/24 20:15 Methemoglobin 0.3 % (0.4-1.5) L 01/15/24 20:15 Total Hemoglobin 12.9 g/dL (12-16) 01/15/24 20:15 Sodium 138.0 mmol/L (131-143) 01/15/24 20:15 Potassium 4.9 mmol/L (3.5-5.0) 01/15/24 20:15 Glucose 129.0 mg/dL (70-115) H 01/15/24 20:15 Ionized Calcium 1.2 mmol/L (1.1-1.4) 01/15/24 20:15 O2 Delivery Device Bipap 01/15/24 20:15 O2 Liters/Min 12.0 % 01/15/24 16:36 FiO2 65.0 % 01/15/24 20:15 Extension Division Director ID [email or web address] 01/15/24 20:15 Sodium 139 mmol/L (136-145) 01/15/24 16:40 Potassium 4.5 mmol/L (3.5-5.1) 01/15/24 16:40 Chloride 98 mmol/L (98-107) 01/15/24 16:40 Carbon Dioxide 30 mmol/L (22-29) H 01/15/24 16:40 Anion Gap 15.5 (5-19) 01/15/24 16:40 BUN 24 mg/dL (8-23) H 01/15/24 16:40 Creatinine 0.9 mg/dL (0.5-0.9) 01/15/24 16:40 GFR Calculation 63.9 mL/min (90-130) L 01/15/24 16:40 Glucose 141 mg/dL (65-115) H 01/15/24 16:40 Calculated Osmolality 294 mOsm/kg (285-295) 01/15/24 16:40 Lactic Acid 1.8 mmol/L (0.5-2.2) 01/15/24 16:40 Calcium 9.4 mg/dL (8.5-10.5) 01/15/24 16:40 Total Bilirubin 0.3 mg/dL (0.15-1.2) 01/15/24 16:40 AST 25 U/L (0-32) 01/15/24 16:40 ALT 16 U/L (0-33) 01/15/24 16:40 Alkaline Phosphatase 70 U/L (35-105) 01/15/24 16:40 Troponin T Baseline 23 ng/L (0-10) H 01/15/24 16:40 Troponin T 120 Minute 6.00 ng/L (0-10) 01/15/24 18:39 Delta Troponin T -17.00 ABS# (0-10) L 01/15/24 18:39 NT-Pro-B Natriuret Pep 636 pg/mL (0-125) H 01/15/24 16:40 Total Protein 6.3 g/dL (6.6-8.7) L 01/15/24 16:40 Albumin 3.2 g/dL (3.5-5.2) L 01/15/24 16:40 Globulin 3.1 g/dL (1.3-4.6) 01/15/24 16:40 Procalcitonin 0.04 ng/mL (0-0.5) 01/15/24 18:40 Micro: Microbiology 01/15/24 21:10 Blood Culture - Preliminary Blood SPECIMEN COLLECTED Other data: NAME: Chayito Small LOC: ICU U #: [id number] AGE/SX: 58/F ROOM: [facility] RE01/05/[address]: Ralph Rivera MD : 1965 BED: 1 DIS: 01/08/24 FAX #: STATUS: DIS IN TLOC: Spec #: [id number] [place]: 01/07/24-0 Status: RES Req #: [id number] Recd: 01/07/24-[address]: Gustabo Otoole MD Src: Body Fluid SpDesc: Pl Lt Lung Ordered: Mycobac w/Cult Comments: Comment COLLECT IN RED SHORT TUBE Procedure Result Verified Site Mycobacterial Smear Preliminary 01/12/24-1648 QD SEE NOTE MYCOBACTERIA, CULTURE, WITH FLUOROCHROME SMEAR Micro Number: [id number] Test Status: Preliminary Specimen Source: Fluid, left pleural Specimen Quality: Adequate Smear: No acid-fast bacilli seen using the fluorochrome method. Result: Culture results to follow. Final reports of negative cultures can be expected in approximately six weeks. Positive cultures are reported immediately. THIS TEST WAS PERFORMED AT: [facility] [id number] LINN PRO MD NAME: Chayito Small LOC: ICU U #: [id number] AGE/SX: 58/F ROOM: ICU05 RE01/05/[address]: Ralph Rivera MD : 1965 BED: 1 DIS: 01/08/24 FAX #: STATUS: DIS IN TLOC: Spec #: [id number] [place]: 01/07/24 Status: RES Req #: [id number] Recd: 01/07/[address]: Gustabo Otoole MD Src: Pleural Fl SpDesc: Ordered: Cult. Fungus Comments: Comment left pleural fluid Procedure Result Verified Site Smear Preliminary 01/12/24-1647 QD SEE NOTE CULTURE, FUNGUS W/SMEAR NOT HAIR, SKIN, BLOOD Micro Number: [id number] Test Status: Preliminary Specimen Source: Fluid,l pleural Specimen Quality: Adequate Smear: No fungal elements seen. Result: No fungi isolated to date. Culture is examined weekly for a total of 28 days incubation. A change in status will result in an updated culture report. THIS TEST WAS PERFORMED AT: [facility] [address] LINN PRO MD NAME: Chayito Small LOC: ICU U #: [id number] AGE/SX: 58/F ROOM: ICU05 RE01/05/[address]: Ralph Rivera MD : 1965 BED: 1 DIS: 01/08/24 FAX #: STATUS: DIS IN TLOC: Spec #: [id number] [place]: 01/07/24 Status: COMP Req #: [id number] Recd: 01/07/[address]: Gustabo Otoole MD Src: Pleural Fl SpDesc: Ordered: Body FL Cult&GS, Anaer Comments: Comment left pleural fluid Procedure Result Verified Site Gram Stain Final 01/08/24-1221 Result FEW WHITE BLOOD CELLS FEW POLYMORPHONUCLEAR NEUTROPHILS NO ORGANISMS SEEN Anaerobic Culture Final 01/14/24-164 NO ANAEROBES ISOLATED ON DAY 7 Anaerobic Culture Preliminary (changed) 01/13/24-155 NO ANAEROBES ISOLATED ON DAY 6 Anaerobic Culture Preliminary (changed) 01/12/24-162 NO ANAEROBES ISOLATED ON DAY 5 Anaerobic Culture Preliminary (changed) 01/11/24-1448 NO ANAEROBES ISOLATED ON DAY 4 Anaerobic Culture Preliminary (changed) 01/10/24-1205 NO ANAEROBES ISOLATED ON DAY 3 Anaerobic Culture Preliminary (changed) 01/09/24-154 NO ANAEROBES ISOLATED ON DAY 2 Anaerobic Culture Preliminary (changed) 01/08/24-1447 NO ANAEROBES ISOLATED ON DAY 1 Body Fluid Culture Final 01/11/24-131 SCANT ALPHA-HEMOLYTIC STREPTOCOCCUS PRESENT ON DAY 3, NOT STREP. PNEUMONIAE. Body Fluid Culture Preliminary (changed) 01/10/24-155 NO GROWTH AFTER 3 DAYS Body Fluid Culture Preliminary (changed) 01/09/24-131 NO GROWTH AFTER 2 DAYS Body Fluid Culture Preliminary (changed) 01/08/24-124 NO GROWTH AFTER 1 DAY NAME: Chayito Small LOC: ICU U #: [id number] AGE/SX: 58/F ROOM: [facility] RE01/05/[address]: Ralph Rivera MD : 1965 BED: 1 DIS: 01/08/24 FAX #: STATUS: DIS IN TLOC: Spec #: [id number] [place]: 01/06/24-18 Status: COMP Req #: [id number] Recd: 01/06/24-[address]: Paco Linton MD Src: Sputum SpDesc: Expec Sput Ordered: SPU Cult & GS Procedure Result Verified Site Gram Stain Final 01/06/24-847 Result RARE WHITE BLOOD CELLS MODERATE GRAM POSITIVE COCCI IN PAIRS & CHAINS RARE GRAM POSITIVE RODS Sputum Culture Final 01/08/24-1236 MODERATE NORMAL LESLIE ON DAY 2 MOLD PRESENT Sputum Culture Preliminary (changed) 01/07/24-1005 MODERATE NORMAL LESLIE ON DAY 1 Pt Name: Chayito Small RM#: [id number] : 1965 Age: 58 Sex: F Date Collected: 01/07/24 MR #: [id number] Date/Time Received: 01/07/24 1834 HISTOPATHOLOGY REPORT Accession No. [id number] Status: Signed Out Final Diagnosis LEFT PLEURAL FLUID ANALYSIS/REVIEW BY PATHOLOGIST: 1. Atypical cells present; Background blood and acute inflammation noted. 2. See comment. MICROSCOPIC: The specimen is markedly cellular and demonstrates numerous red blood cells along with several neutrophils and reactive mesothelial lining cells. Additionally, there are a few large atypical cells seen individually and in small clusters. On this preparation, a few of the atypical cell groups share staining characteristics similar to the background mesothelial cells. COMMENT: The findings seen in this specimen are concerning for involvement by a malignant process. However, given the background blood and inflammation, marked reactive cytologic change in mesothelial cells cannot be entirely excluded. Clinicoradiographic correlation is necessary A&P Assessment and plan (1) Pleural effusion: (2) Acute and chronic respiratory failure ([id number]): (3) Lung cancer: (4) Pulmonary embolism: (5) Pulmonary hypertension: Plan 58-year-old lady with severe pulmonary hypertension, recently diagnosed pulmonary embolism, left pleural effusion for which she underwent thoracentesis recently. Cytology showing atypical cells. Previously known to have an enlarging left lower lobe mass which was PET avid, unable to undergo biopsy due to severe pulmonary hypertension and risk of respiratory failure. Recommended to undergo presumptive radiation therapy in late 2022, however patient had declined this intervention. Presents after recent discharge today with increasing shortness of breath. Typically at baseline she uses 5 L/min supplemental O2. Today she was found to be saturating 70% on the same, needed to be on nonrebreather at 12 L/min via EMS and then now on BiPAP. ABG shows acute on chronic hypoxic respiratory failure and chronic hypercapnic failure. X-ray shows worsening left-sided pleural effusion. Patient's current respiratory failure is likely a combination of reaccumulation of pleural fluid, COPD exacerbation and pulmonary hypertension. Admit to ICU Start scheduled nebulization with budesonide and DuoNeb. Methylprednisolone 40 mg IV every 6 hours Hold Eliquis as will likely require thoracentesis for drainage of pleural effusion again. Insert transition to heparin drip for now. Lower suspicion of underlying infective process, however currently started on piperacillin/tazobactam and vancomycin while awaiting results of infectious evaluation including blood and sputum cultures. Continue sildenafil for pulmonary hypertension at home dosing Lasix 40 mg IV now, check BMP. Continue other home medications including levothyroxine, metoprolol DNR/DNI DVT prophylaxis: Currently on heparin drip PUD prophylaxis: Protonix 40 mg daily Attestations Medical Necessity Statement*: Greater than 2 midnight admission is anticipated for acute on chronic hypoxic and hypercapnic respiratory failure, will likely require thoracentesis for reaccumulation of pleural effusion. Critical Care Time: The high probability of a clinically significant, sudden or life threatening deterioration of the patient's [respiratory] system(s) required my full and direct attention, intervention and personal management. The critical care time is as shown. This time is in addition to time spent performing any reported procedures but includes the following: [x] Data and vital sign review and interpretation [x] Patient assessment, examination and intervention [x] Documentation [x] Medication orders and management Coding Level of Care Code Critical Care >/= 30 minutes Diagnoses Pleural effusion J90 Acute and chronic respiratory failure ([id number]) J96.20 Lung cancer C34.90 Pulmonary embolism I26.99 Pulmonary hypertension I27.20
[2024-01-15] MEDS: heparin drip 25,000 UNIT/500 ML PREMIX 18.54 UNIT IV (22:02)
[2024-01-15] MEDS: pantoprazole 40 mg SDV IVP (22:53)
[2024-01-15 23:21] LABS: Troponin 5 6HR 18.59 ng/L (0-10)
[2024-01-15 23:26] LABS: Troponin 5 6HR Delta -4.41 ng/L (0-12)
--- NOTE | 2024-01-15 23:36 | ECG_ITS ---
[facility] Test Date: 2024-01-15 Pat Name: Chayito Small Department: Room: ED Gender: Female Aqua Am[employer] Operator: : 1965 Requested By: Kaden Pollard Order Number: [id number] Teddy MD: Marcelino Morales M.D. Measurements Intervals [place] Rate: 103 P: 53 NJ: 111 QRS: 30 QRSD: 86 T: 41 QT: 335 QTc: 440 Interpretive Statements SINUS TACHYCARDIA WITH SHORT [place] INTERVAL LOW QRS VOLTAGE IN PRECORDIAL LEADS [QRS DEFLECTION < 1.0 mV IN CHEST LEADS] POSSIBLE RIGHT VENTRICULAR CONDUCTION DELAY [RSR (QR) IN V1/V2] ABNORMAL RHYTHM ECG Compared to ECG 01/15/2024 16:41:39 Short [place] interval now present Indeterminate axis no longer present Electronically Signed On 01-16-2024 0:04:17 CDT by Marcelino Morales M.D. [id number]
[2024-01-16] VITALS (67 sets, daily range): BP systolic 102–147; BP diastolic 71–96; PULSE 91–117; RESP 15–38; TEMP 36.6–36.9; O2SAT 81–97; BMI 24.5
[2024-01-16 00:37] LABS: Iron 42 ug/dL (37-145); Percent Saturation 17.3 % (20-50); Thyroid Stimulating Hormone 0.59 uIU/mL (0.27-4.20); Total Iron Binding Capacity 242 mcg/dl; Unsaturated Iron Binding 200 ug/dL (112-347); Vitamin B12 589 pg/mL (232-1245)
[2024-01-16] MEDS: methylPREDNISolone sod succ 40 mg/mL INJ IVP ×4 (01:52→19:41)
[2024-01-16] MEDS: ipratropium-albuterol 3 mL Neb INHALATION ×4 (02:13→20:01)
[2024-01-16 05:07] LABS: ABG PCO2 50.6 mmHg (35-45); ABG PH Result 7.41 (7.35-7.45); Alveolar-Arterial Oxygen Gradi 1.8 mmHg (5-10); Arterial Blood Gas Hematocrit 40.1 % (37-47); Base Excess ABG 6.1 mmol/L (-2.0-2.0); Blood Gas Sample Site Brachial, right; Blood Gas Sample Type Arterial; Carboxyhemoglobin 1.4 %THgb (0.4-20.1); HGB O2 Sat 93.8 % (95-100); Ionized Calcium Level - ABG 1.1 mmol/L (1.1-1.4); Methemoglobin 0.2 % (0.4-1.5); Oxygen Device NC; Oxygen Saturation ABG 95.4; PO2 ABG 73.7 mmHg (80.0-100.0); Potassium Level - ABG 3.7 mmol/L (3.5-5.0); Total Hemoglobin 13.1 g/dL (12-16)
[2024-01-16] MEDS: piperacillin-tazobactam 3.375 GM in sodium chloride 0.9% (plus) 50 ML IV ×3 (05:14→21:36)
[2024-01-16 05:38] LABS: Basophils % 0.2 %; Hematocrit 41.4 % (36-47); Lymphocytes # 0.2 10^3/uL (0.8-4.8); Lymphocytes % 1.6 %; Mean Corpuscular HGB Conc 31.4 g/dL (30-55); Mean Corpuscular Hemoglobin 29.5 pg (27-33); Mean Corpuscular Volume 93.9 fl (85-98); Mean Platelet Volume 10.1 fL (7.4-10.4); Monocytes # 0.2 10^3/uL (0.2-0.9); Monocytes % 1.7 %; Neutrophils # 8.92 10^3/uL (1.8-7.7); Nucleated Red Blood Cells % 0 %; Platelet Count 360 10^3/cmm (157-399); Red Blood Count 4.41 10^6/uL (3.85-5.65); Red Cell Distribution Width 13.6 % (12.1-15.1); White Blood Count 9.49 10^3/uL (3.29-11.43)
[2024-01-16 05:49] LABS: Estmated Average Glucose 100; Hemoglobin A1C 5.1 % (4.0-6.0)
[2024-01-16 05:53] LABS: Partial Thromboplastin Time 82.2 SECONDS (23.9-36.7)
[2024-01-16 06:00] LABS: Alanine Aminotransferase 13 U/L (0-33); Alkaline Phosphatase 70 U/L (35-105); Aspartate Amino Transferase 18 U/L (0-32); Blood Urea Nitrogen 25 mg/dL (8-23); Calcium 8.6 mg/dL (8.5-10.5); Carbon Dioxide 29 mmol/L (22-29); Chloride 95 mmol/L (98-107); Globulin 3.2 g/dL (1.3-4.6); Glomerular Filtration Rate 56.6 mL/min (90-130); Glucose 152 mg/dL (65-115); Magnesium 2.2 mg/dL (1.7-2.3); Osmolality Calculated 293 mOsm/kg (285-295); Phosphorus 4.3 mg/dL (2.5-4.5); Sodium 138 mmol/L (136-145); Total Bilirubin 0.3 mg/dL (0.15-1.2); Total Protein 6.2 g/dL (6.6-8.7)
[2024-01-16 06:02] LABS: Creatinine Clr Calc Pharmacy 57.5646
[2024-01-16] MEDS: levothyroxine 50 mcg Tablet 150 MCG PO (06:03)
[2024-01-16 06:11] LABS: Procalcitonin 0.08 ng/mL (0-0.5)
[2024-01-16 06:21] LABS: Folate Level > 20.0 ng/mL (4.8-37.3)
[2024-01-16 06:23] LABS: Chol HDL Ratio 3.09 mg/dL (0.0-4.40); Cholesterol 176 mg/dL (0-200); HDL Cholesterol 57 mg/dL (60-100); LDL Cholesterol Calculated 103 mg/dL (50-129); LDL HDL Ratio 1.81 RATIO (0.00-3.22); Triglycerides 81 mg/dL (0-150)
[2024-01-16] MEDS: budesonide 0.5 mg/2 mL Neb INHALATION ×2 (08:30→20:01)
--- NOTE | 2024-01-16 09:05 | US_ITS ---
WS: [id number] ULTRASOUND-GUIDED THORACENTESIS, LEFT HISTORY: pleural effusion Procedure, risks, and complications were explained to the patient. With the patient in an upright pos ition, the skin over the LEFT posterior thorax was cleansed with ChloraPrep and anesthetized with 1% buffered lidocaine. A 5 [place] Yueh needle is inserted into the pleural fluid without complication. A pproximately 1200 cc of dark red pleural fluid is removed without difficulty. Specimen collected for analysis as requested. / thoracentesis [id number] IMPRESSION: 1. LEFT thoracentesis yielding 1200 cc of fluid. Pleural fluid is dark red con sistent with blood. 2. Chest radiograph to follow to evaluate for pneumothorax. 3. Pleural fluid specimen collected for analysis.
[2024-01-16] MEDS: vancomycin 1,000 MG in sodium chloride 0.9% 250 ML 250 MG IV ×2 (09:15→20:37)
[2024-01-16] MEDS: azithromycin 500 MG in sodium chloride 0.9% 250 ML 250 MG IV (10:26)
[2024-01-16] MEDS: metoprolol tartrate 25 mg Tablet PO (10:28)
[2024-01-16] MEDS: lisinopril 20 mg Tablet PO (10:29)
[2024-01-16 12:43] LABS: INR 1.13 (0.8-1.2)
[2024-01-16 12:50] LABS: Partial Thromboplastin Time 31.4 SECONDS (23.9-36.7)
[2024-01-16] MEDS: phenol oral Spray 177 mL 3 SPRAY MUCOUS MEM ×3 (13:47→21:53)
--- NOTE | 2024-01-16 14:05 | PC.NURSE ---
Dr Barba at bedside for ultrasound guided thoracentesis. Pt positioned appropriately. Approx 1200 mL of bloody fluid was removed from the thoracic cavity. Pt tolerated well. specimen sent to lab for analysis.
--- NOTE | 2024-01-16 14:08 | XR_ITS ---
WS: [id number] PORTABLE CHEST HISTORY: s/p thoracentesis COMPARISON: 01/15/2024 Significant improvement in aeration of the LEFT lung since the prior study. There is no pneumothorax There is a continued small LEFT pleural effusion and LEFT basilar atelectasis. Mild atelectasis at th e RIGHT lung base. No pneumothorax. Cardiac size: Partially obscured by the fluid and consolidation at the LEFT lower lobe. Mediastinum/Aorta: Mild atherosclerosis aorta. No osseous abnormality seen. XR/XR chest 1V portable [id number] IMPRESSION: 1. No pneumothorax status post LEFT thoracentesis. 2. Small LEFT pleural effusion, significantly improved since 01/15/2024. Consol idation at the LEFT lung base is probably a combination of residual pleural flu id and atelectasis.
--- NOTE | 2024-01-16 14:33 | P.PN_ITS ---
Subjective 2 Subjective: Patient was seen this morning, she is on heated high flow nasal cannula, does report shortness of breath, no fevers, no chills, does have a cough, denies any chest pain, Vitals/I&O/Wt Last Vital Signs Temp 97.9 F 01/16/24 11:00 Pulse 91 01/16/24 12:00 Resp 30 H 01/16/24 12:00 BP 108/76 01/16/24 12:00 Pulse Ox 88 L 01/16/24 12:00 O2 Del Method High Flow Nasal Cannula 01/16/24 12:00 O2 Flow Rate 11 01/16/24 12:00 FiO2 65 01/16/24 11:00 01/15/24 01/16/24 01/16/24 22:59 06:59 14:59 Intake Total 449.247 / 449.247 603.833 / 603.833 Output Total 1650 / 1650 400 / 2050 Balance -1650 / -1650 49.247 / -1600.753 603.833 / 603.833 Weight last 48 hrs Weight 73.482 kg Weight 66.877 kg Weight 66.877 kg Weight 66.224 kg Physical Exam 2 Const: COMMON NORMALS: no acute distress and patient oriented x3 GENERAL APPEARANCE: frail appearing Resp: COMMON NORMALS: normal respiratory effort, No retractions and No use of accessory muscles AUSCULTATION: crackles and wheezes OTHER: Intercostal retractions, nasal flaring Cardio: COMMON NORMALS: regular rate, regular rhythm, S1 normal heart sound present and S2 normal heart sound present RATE: regular rate RHYTHM: r egular rhythm HEART SOUNDS: S1 normal heart sound present and S2 normal heart sound present GI: COMMON NORMALS: Normal to inspection, nondistended, normoactive bowel sounds present and non-tender Extremity: COMMON NORMALS: no pedal edema Neuro: COMMON NORMALS: patient oriented x3 Psych: COMMON NORMALS: mental status grossly normal Urinary Catheter Management: Francois: Cath Placed During This Visit: yes Reason for Continuing Indwelling Catheter: Accurate Measurement of Urinary Output in Critically Ill Patients Urinary Catheter Date of Insertion: 01/15/24 Urinary Catheter Time of Insertion: 22:33 Data 01/16/24 04:27 01/16/24 04:27 Micro: Microbiology 01/15/24 22:47 Blood Culture - Preliminary Blood SPECIMEN COLLECTED 01/15/24 21:10 Blood Culture - Preliminary Blood SPECIMEN COLLECTED A&P Assessment and plan (1) Pleural effusion: (2) Acute and chronic respiratory failure ([id number]): (3) Lung cancer: (4) Pulmonary embolism: (5) Pulmonary hypertension: Plan 58-year-old with severe pulmonary hypertension, recently diagnosed pulmonary embolism, left pleural effusion for which she underwent thoracentesis recently. Cytology showing atypical cells. Previously known to have an enlarging left lower lobe mass which was PET avid, unable to undergo biopsy due to severe pulmonary hypertension and risk of respiratory failure. Recommended to undergo presumptive radiation therapy in late 2022, however patient had declined this intervention. Presents after recent discharge today with increasing shortness of breath. Typically at baseline she uses 5 L/min supplemental O2. Today she was found to be saturating 70% on the same, needed to be on nonrebreather at 12 L/min via EMS and then now on BiPAP., Now back on heated high flow ABG shows acute on chronic hypoxic respiratory failure and chronic hypercapnic failure. X-ray shows worsening left-sided pleural effusion. Patient's current respiratory failure is likely a combination of reaccumulation of pleural fluid, COPD exacerbation and pulmonary hypertension. Acute hypoxic respiratory failure secondary to COPD, pleural effusion, possible pneumonia Plan: Admit to ICU BiPAP as needed during the day for shortness of breath, Start scheduled nebulization with budesonide and DuoNeb. Methylprednisolone 40 mg IV every 6 hours Hold Eliquis as will likely require thoracentesis for drainage of pleural effusion again. Insert transition to heparin drip for now. Lower suspicion of underlying infective process, however currently started on piperacillin/tazobactam and vancomycin while awaiting results of infectious evaluation including blood and sputum cultures. Continue sildenafil for pulmonary hypertension at home dosing Lasix 40 mg IV now, Ultrasound thoracocentesis Continue other home medications including levothyroxine, metoprolol DNR/DNI DVT prophylaxis: Currently on heparin drip PUD prophylaxis: Protonix 40 mg daily Attestations 2 Medical Necessity Statement*: Patient requires hospitalization for acute respiratory failure Diagnoses Pleural effusion J90 Acute and chronic respiratory failure ([id number]) J96.20 Lung cancer C34.90 Pulmonary embolism I26.99 Pulmonary hypertension I27.20
[2024-01-16 14:56] LABS: Apprearance, Body Fluid CLOUDY; Color, Body Fluid RED; Cyto Order Verification Order Verified; Fluid Laterality Left Lower
[2024-01-16 14:59] LABS: Body Fluid Polynuclear #Cells 0.092; Body Fluid WBC 459 /uL; Monocytes # Body Fluid 0.367
[2024-01-16 16:27] LABS: Albumin Body Fluid 2.1 g/dL
[2024-01-16 17:11] LABS: LDH Pleural Fluid 488 U/L; Total Protein Pleural Fluid 3.4 g/dL; Triglycerides, Pleural Fluid 28 mg/dL
[2024-01-16 19:10] LABS: Partial Thromboplastin Time 48.3 SECONDS (23.9-36.7)
[2024-01-16] MEDS: artificial tears Op Soln 15 mL Btl 1 DROP EYE-BOTH (19:29)
[2024-01-16 20:11] LABS: Add Urine Microscopic? YES; Bacteria Urine TRACE /hpf; Bilirubin Urine Neg (Negative); Blood Urine Neg (Negative); Glucose Urine UA Norm (Normal); Ketones Urine Negative (Negative); Nitrate Urine Negative (Negative); Protein Urine Neg (Negative); RBC Urine 0-4 /hpf (0-2); Specific Gravity, Urine 1.005 (1.005-1.030); Urine Appearance Clear (CLEAR); Urine Color Yellow (Yellow); Urobilinogen Urine Norm (Negative); WBC Urine 21-50 /hpf (0-5); pH Urine 5 (5-7)
[2024-01-16 20:26] LABS: Add Urine Culture? Yes; Uric Acid Crystals Urine 0-4 /hpf
[2024-01-16 20:30] LABS: Leukocyte Esterase Urine 1+ (Negative)
[2024-01-16] MEDS: heparin 5,000 unit/mL INJ 1 mL IV (20:33)
[2024-01-16] MEDS: pantoprazole 40 mg SDV IVP (21:37)
[2024-01-17] VITALS (22 sets, daily range): BP systolic 94–126; BP diastolic 67–88; PULSE 89–113; RESP 15–33; TEMP 36.2–36.9; O2SAT 79–97; BMI 23.6
[2024-01-17] MEDS: methylPREDNISolone sod succ 40 mg/mL INJ IVP ×3 (01:46→19:13)
[2024-01-17] MEDS: ipratropium-albuterol 3 mL Neb INHALATION ×3 (01:53→19:48)
[2024-01-17 03:42] LABS: Basophils % 0.1 %; Hematocrit 40.3 % (36-47); Lymphocytes # 0.1 10^3/uL (0.8-4.8); Lymphocytes % 1.2 %; Mean Corpuscular Hemoglobin 29.3 pg (27-33); Mean Corpuscular Volume 94.6 fl (85-98); Monocytes # 0.5 10^3/uL (0.2-0.9); Monocytes % 4.6 %; Neutrophils # 10.33 10^3/uL (1.8-7.7); Neutrophils % 92.2 %; Nucleated Red Blood Cells % 0 %; Platelet Count 362 10^3/cmm (157-399); Red Blood Count 4.26 10^6/uL (3.85-5.65); Red Cell Distribution Width 13.7 % (12.1-15.1); White Blood Count 11.19 10^3/uL (3.29-11.43)
[2024-01-17 04:04] LABS: C Reactive Protein 81.2 mg/L (0.0-4.9)
[2024-01-17 04:06] LABS: Partial Thromboplastin Time 144.7 SECONDS (23.9-36.7)
[2024-01-17 04:14] LABS: Anion Gap 14.4 (5-19); Blood Urea Nitrogen 22 mg/dL (8-23); Calcium 8.2 mg/dL (8.5-10.5); Carbon Dioxide 29 mmol/L (22-29); Chloride 102 mmol/L (98-107); Creatinine Clr Calc Pharmacy 66.7332; Glomerular Filtration Rate 63.9 mL/min (90-130); Glucose 154 mg/dL (65-115); NT Pro B Type Natriuretic Pept 527 pg/mL (0-125); Osmolality Calculated 300 mOsm/kg (285-295); Potassium 3.4 mmol/L (3.5-5.1); Sodium 142 mmol/L (136-145)
[2024-01-17] MEDS: piperacillin-tazobactam 3.375 GM in sodium chloride 0.9% (plus) 50 ML IV ×3 (05:23→21:07)
--- NOTE | 2024-01-17 05:31 | PC.NURSE ---
Patient requesting her Alendronate for her arthritis. Explained to the patient that we will have to let the doctor know and he will have to order that it ok for her to take her home medication. Patient states I am not going to take any of my other medications until I get that medicine . Asked patient how long she had to wait after taking medicine before she could take her Alendronate and patient states 30 min . Notified patient that her synthroid is due at 0700 this morning and the doctors wont be making rounds yet so she will have plenty of time before she could get her Alendronate. Patients states I will not take any other medications by mouth until I get it .
--- NOTE | 2024-01-17 07:00 | XRR_ITS ---
PROCEDURE INFORMATION: Exam: XR Chest Exam date and time: 01/17/2024 6:59 AM Age: 58 years old Clinical indication: Shortness of breath; Additional info: SOB TECHNIQUE: Imaging protocol: Radiologic exam of the chest. Views: 1 view. COMPARISON: CR XR chest 1V portable [id number] 01/16/2024 2:27 PM FINDINGS: Lungs: Unchanged airspace disease of the right lower lobe. Severe apically predominant emphysematous change. Pleural spaces: Redemonstrated and essentially unchanged left pleural effusion from 01/16/2024. Heart/Mediastinum: Unremarkable. No cardiomegaly. Vasculature: Calcified atherosclerotic disease of the aortic arch. Bones/joints: Scattered degenerative change of the visualized osseous structures. XR/XR chest 1V portable [id number] IMPRESSION: Essentially unchanged exam from 01/16/2024.
[2024-01-17] MEDS: budesonide 0.5 mg/2 mL Neb INHALATION ×2 (07:55→19:48)
[2024-01-17 08:38] LABS: Lactate Dehydrogenase 324 U/L (135-214)
--- NOTE | 2024-01-17 08:56 | PC.SOCIAL ---
IMM Update Pg. 2 of IMM updated and reviewed with patient, who verbalized understanding. Copy provided.
[2024-01-17] MEDS: heparin drip 25,000 UNIT/500 ML PREMIX 14 UNIT IV (08:59)
[2024-01-17] MEDS: lidocaine 1% 5 ML in potassium chloride premix 100 ML 26.25 ML IV (09:41)
[2024-01-17] MEDS: levothyroxine 150 mcg Tablet PO (09:42)
[2024-01-17] MEDS: FUROsemide 10 mg/mL SDV 4mL 40 MG IVP (09:43)
[2024-01-17] MEDS: multivitamin therapeutic Tablet 1 TAB PO (09:57)
[2024-01-17] MEDS: NON-FORMULARY MEDICATION (Sildenafil (Pulm.Hypertension) 20 mg tablet) 20 EACH PO ×2 (09:57→17:02)
[2024-01-17 10:44] LABS: Partial Thromboplastin Time 86.6 SECONDS (23.9-36.7)
[2024-01-17] MEDS: metoprolol tartrate 25 mg Tablet PO (11:04)
[2024-01-17] MEDS: [UNRECOGNIZED DRUG - OTHER] 500 EACH PO (12:08)
[2024-01-17 13:32] LABS: Basophils % 0.2 %; Hematocrit 43.2 % (36-47); Lymphocytes # 0.1 10^3/uL (0.8-4.8); Lymphocytes % 0.7 %; Mean Corpuscular Hemoglobin 29.3 pg (27-33); Mean Corpuscular Volume 94.3 fl (85-98); Mean Platelet Volume 9.9 fL (7.4-10.4); Monocytes # 0.6 10^3/uL (0.2-0.9); Monocytes % 4.1 %; Neutrophils # 12.88 10^3/uL (1.8-7.7); Neutrophils % 92.5 %; Nucleated Red Blood Cells % 0 %; Platelet Count 432 10^3/cmm (157-399); Red Blood Count 4.58 10^6/uL (3.85-5.65); Red Cell Distribution Width 13.9 % (12.1-15.1); White Blood Count 13.93 10^3/uL (3.29-11.43)
[2024-01-17] MEDS: magnesium lactate 84 mg Tablet PO (17:02)
[2024-01-17 18:01] LABS: Partial Thromboplastin Time 35.9 SECONDS (23.9-36.7)
[2024-01-17] MEDS: heparin 5,000 unit/mL INJ 1 mL IV (19:01)
--- NOTE | 2024-01-17 19:14 | P.PN_ITS ---
Subjective 2 Subjective: Patient was seen this morning, she tells me that she is resting more comfortably this morning, denies any fevers, chills, currently on 8 L, we discussed her overall goals of care, she tells me that she is considering hospice, however is not ready to speak to hospice nurse Vitals/I&O/Wt Last Vital Signs Temp 97.6 F 01/17/24 12:00 Pulse 90 01/17/24 15:00 Resp 20 H 01/17/24 16:00 BP 116/82 01/17/24 16:00 Pulse Ox 96 01/17/24 16:00 O2 Del Method Nasal Cannula 01/17/24 12:00 O2 Flow Rate 8 01/17/24 12:00 FiO2 65 01/16/24 11:00 01/17/24 01/17/24 01/17/24 06:59 14:59 22:59 Intake Total 191.9 / 1582.633 372.787 / 372.787 319.2 / 691.987 Output Total 550 / 2150 850 / 850 1550 / 2400 Balance -358.1 / -567.367 -477.213 / -477.213 -1230.8 / -1708.013 Weight last 48 hrs Weight 64.552 kg Weight 65.862 kg Weight 73.482 kg Weight 66.877 kg Weight 66.877 kg Physical Exam 2 Const: COMMON NORMALS: no acute distress and patient oriented x3 Resp: COMMON NORMALS: normal respiratory effort, No retractions and No use of accessory muscles AUSCULTATION: crackles and wheezes Cardio: COMMON NORMALS: regular rate, regular rhythm, S1 normal heart sound present and S2 normal heart sound present RATE: regular rate RHYTHM: r egular rhythm HEART SOUNDS: S1 normal heart sound present and S2 normal heart sound present GI: COMMON NORMALS: Normal to inspection, nondistended, normoactive bowel sounds present and non-tender Extremity: COMMON NORMALS: no pedal edema Neuro: COMMON NORMALS: patient oriented x3 Psych: COMMON NORMALS: mental status grossly normal Urinary Catheter Management: Francois: Cath Placed During This Visit: yes Reason for Continuing Indwelling Catheter: Accurate Measurement of Urinary Output in Critically Ill Patients Urinary Catheter Date of Insertion: 01/15/24 Urinary Catheter Time of Insertion: 22:33 Data 01/17/24 13:15 06/14/24 03:31 Micro: Microbiology 01/16/24 14:00 Gram Stain - Final Pleural Fluid Body Fluid Culture - Preliminary 01/16/24 19:15 Bacterial Antigens - Final Urine Kidney 01/15/24 22:47 Blood Culture - Preliminary Blood NEGATIVE TO DATE 01/15/24 21:10 Blood Culture - Preliminary Blood NEGATIVE TO DATE 01/16/24 19:15 Legionella Urinary Antigen - Final Unknown Source A&P Assessment and plan (1) Pleural effusion: (2) Acute and chronic respiratory failure ([id number]): (3) Lung cancer: (4) Pulmonary embolism: (5) Pulmonary hypertension: Plan 58-year-old with severe pulmonary hypertension, recently diagnosed pulmonary embolism, left pleural effusion for which she underwent thoracentesis recently. Cytology showing atypical cells. Previously known to have an enlarging left lower lobe mass which was PET avid, unable to undergo biopsy due to severe pulmonary hypertension and risk of respiratory failure. Recommended to undergo presumptive radiation therapy in late 2022, however patient had declined this intervention. Presents after recent discharge today with increasing shortness of breath. Typically at baseline she uses 5 L/min supplemental O2. Today she was found to be saturating 70% on the same, needed to be on nonrebreather at 12 L/min via EMS and then now on BiPAP., Now back on heated high flow ABG shows acute on chronic hypoxic respiratory failure and chronic hypercapnic failure. X-ray shows worsening left-sided pleural effusion. Patient's current respiratory failure is likely a combination of reaccumulation of pleural fluid, COPD exacerbation and pulmonary hypertension. Acute hypoxic respiratory failure secondary to COPD, pleural effusion, possible pneumonia With evidence of hemorrhagic pleural effusion, Plan: Admit to ICU BiPAP as needed during the day for shortness of breath, Start scheduled nebulization with budesonide and DuoNeb. Methylprednisolone 40 mg IV every 6 hours heparin drip for now. Concerns for hemorrhagic pleural effusion, monitor heparin closely monitor hemodynamics as patient is on heparin drip for PEs Lower suspicion of underlying infective process, however currently started on piperacillin/tazobactam and vancomycin while awaiting results of infectious evaluation including blood and sputum cultures. Continue sildenafil for pulmonary hypertension at home dosing Lasix 40 mg IV now, CT angiogram of the chest ordered Continue other home medications including levothyroxine, metoprolol DNR/DNI DVT prophylaxis: Currently on heparin drip PUD prophylaxis: Protonix 40 mg daily Attestations 2 Medical Necessity Statement*: Patient requires hospitalization for concerns for pneumonia, hemorrhagic pleural effusion, COPD exacerbation Diagnoses Pleural effusion J90 Acute and chronic respiratory failure ([id number]) J96.20 Lung cancer C34.90 Pulmonary embolism I26.99 Pulmonary hypertension I27.20
[2024-01-17] MEDS: vancomycin 1,000 MG in sodium chloride 0.9% 250 ML 250 MG IV (19:38)
[2024-01-17] MEDS: pantoprazole 40 mg SDV IVP (21:07)
[2024-01-17] MEDS: artificial tears Op Soln 15 mL Btl 1 DROP EYE-BOTH (21:07)
--- NOTE | 2024-01-17 21:33 | PC.NURSE ---
Attempted x 3 to start IV 20 g or larger for CTA of chest as ordered. Unable to obtain access and patient states You are not going to try again, I am not going to have the CT done . Dr. Moyer notified per JUJU De León and CT notified that patient does not have adequate access so the CT will not be done at present time due to patient refusing to be stuck again.
[2024-01-18] VITALS (20 sets, daily range): BP systolic 90–131; BP diastolic 60–85; PULSE 82–115; RESP 14–24; TEMP 36.2–36.7; O2SAT 89–97; BMI 23.5
[2024-01-18] MEDS: methylPREDNISolone sod succ 40 mg/mL INJ IVP ×3 (00:52→13:27)
[2024-01-18 02:21] LABS: Partial Thromboplastin Time 90.7 SECONDS (23.9-36.7)
[2024-01-18] MEDS: ipratropium-albuterol 3 mL Neb INHALATION ×4 (02:54→19:32)
[2024-01-18 04:19] LABS: Basophils % 0.3 %; Hematocrit 45.5 % (36-47); Lymphocytes # 0.1 10^3/uL (0.8-4.8); Lymphocytes % 1.1 %; Mean Corpuscular Hemoglobin 29.6 pg (27-33); Mean Corpuscular Volume 95.6 fl (85-98); Monocytes # 0.4 10^3/uL (0.2-0.9); Monocytes % 3.7 %; Neutrophils # 9.75 10^3/uL (1.8-7.7); Neutrophils % 93.2 %; Nucleated Red Blood Cells % 0 %; Platelet Count 420 10^3/cmm (157-399); Red Blood Count 4.76 10^6/uL (3.85-5.65); White Blood Count 10.46 10^3/uL (3.29-11.43)
[2024-01-18 04:41] LABS: C Reactive Protein 54.9 mg/L (0.0-4.9)
[2024-01-18 04:50] LABS: NT Pro B Type Natriuretic Pept 381 pg/mL (0-125); Procalcitonin 0.06 ng/mL (0-0.5)
[2024-01-18 05:01] LABS: Anion Gap 15.5 (5-19); Blood Urea Nitrogen 24 mg/dL (8-23); Calcium 8.4 mg/dL (8.5-10.5); Carbon Dioxide 31 mmol/L (22-29); Chloride 101 mmol/L (98-107); Creatinine Clr Calc Pharmacy 56.6863; Glomerular Filtration Rate 56.6 mL/min (90-130); Glucose 143 mg/dL (65-115); Osmolality Calculated 305 mOsm/kg (285-295); Potassium 3.5 mmol/L (3.5-5.1); Sodium 144 mmol/L (136-145)
[2024-01-18] MEDS: piperacillin-tazobactam 3.375 GM in sodium chloride 0.9% (plus) 50 ML IV ×3 (05:13→21:50)
[2024-01-18] MEDS: NON-FORMULARY MEDICATION (Alendronate [Fosamax] 70 mg Tablet) 70 EACH PO (06:18)
[2024-01-18] MEDS: levothyroxine 150 mcg Tablet PO (06:48)
--- NOTE | 2024-01-18 07:00 | XRR_ITS ---
PROCEDURE INFORMATION: Exam: XR Chest Exam date and time: 01/18/2024 9:18 AM Age: 58 years old Clinical indication: Shortness of breath; Additional info: SOB TECHNIQUE: Imaging protocol: Radiologic exam of the chest. Views: 1 view. COMPARISON: CR XR chest 1V portable [id number] 01/17/2024 6:59 AM FINDINGS: Lungs: See Pleural spaces finding. Pleural spaces: Persistent dense opacification lower left half left hemithorax likely representing combination of pleural effusion and underlying lung consolidation that may be due to atelectasis. Patchy interstitial infiltrate right lung base unchanged, nonspecific. Upper lobe emphysematous changes redemonstrated. Heart/Mediastinum: Cardiac silhouette is partially obscured but appears unchanged and not markedly enlarged. Bones/joints: Unremarkable for age. XR/XR chest 1V portable [id number] IMPRESSION: Stable examination with left pleural effusion and underlying lung consolidation resulting in opacification of the lower half of the left hemithorax and patchy interstitial infiltrate right lung base, unchanged.
[2024-01-18] MEDS: budesonide 0.5 mg/2 mL Neb INHALATION ×2 (07:47→19:32)
--- NOTE | 2024-01-18 08:31 | CTR_ITS ---
PROCEDURE INFORMATION: Exam: CTA Chest With Contrast Exam date and time: 01/18/2024 5:23 PM Age: 58 years old Clinical indication: Shortness of breath; Patient HX: Lung CA; Additional info: Left hemothorax, R/O abscess, underlying malignancy TECHNIQUE: Imaging protocol: Computed tomographic angiography of the chest with contrast. Exam focused on the arteries. 3D rendering (Not supervised by radiologist): MIP and/or 3D reconstructed images were created by the technologist. Radiation optimization: All CT scans at this facility use at least one of these dose optimization techniques: automated exposure control; mA and/or kV adjustment per patient size (includes targeted exams where dose is matched to clinical indication); or iterative reconstruction. Contrast material: OMNI 350; Contrast volume: 83 ml; Contrast route: INTRAVENOUS (IV); COMPARISON: CT angio chest PE protcl [id number] 01/05/2024 6:19 PM RADIATION DOSE METRICS: Total DLP (mGy-cm): 619.37 FINDINGS: Pulmonary arteries: There is eccentric thrombus along the posterior wall the left main pulmonary artery unchanged. Remainder of the pulmonary vascular tree is patent. Aorta: Unremarkable. No aortic aneurysm. No aortic dissection. Lungs: COPD with diffuse emphysematous changes redemonstrated. Large left pleural effusion with adjacent compressive atelectasis left lower lung zone unchanged. Chronic interstitial lung changes right lung base, stable. Pleural spaces: See Lungs finding. Heart: Heart is not significantly enlarged. There are mild calcifications of the coronary arteries. No significant pericardial effusion. Mediastinal space: Redemonstration of 3.5 cm left hilar mass likely malignant in nature. Adjacent left hilar and ipsilateral mediastinal lymphadenopathy unchanged likely metastatic in nature. Lymph nodes: See Mediastinal space finding. Bones/joints: Chronic compression fractures involving T6 and T10 vertebral bodies unchanged. Soft tissues: Unremarkable. CT/CT angio chest [id number] IMPRESSION: 1. Redemonstration of eccentric nonocclusive thrombus within the posterior aspect of the left main pulmonary artery unchanged. 2. 3.5 cm left hilar mass likely malignant in nature, unchanged. 3. Moderate ipsilateral left hilar and mediastinal lymphadenopathy likely metastatic in nature. 4. Large left pleural effusion with adjacent compressive atelectasis left lung, stable. 5. Chronic compression fractures T6 and T10 vertebral bodies unchanged. COMMENTS: The presence of pulmonary emphysema on CT is an independent risk factor for lung cancer. In the absence of a history or active diagnosis of lung cancer, it is recommended that this patient with emphysema be evaluated for enrollment in a low dose CT lung cancer screening program.
[2024-01-18 09:46] LABS: Partial Thromboplastin Time 43.3 SECONDS (23.9-36.7)
[2024-01-18] MEDS: cholecalciferol (vitamin D3) 1,000 unit Tablet 2000 UNIT PO (11:03)
[2024-01-18] MEDS: multivitamin therapeutic Tablet 1 TAB PO (11:05)
[2024-01-18] MEDS: [UNRECOGNIZED DRUG - OTHER] 500 EACH PO (11:12)
--- NOTE | 2024-01-18 11:25 | PC.NURSE ---
Transfer Note Patient transferred to med-surg room 256-2 from ICU via bed. Handoff report given to JUJU Mckenna. Patient oriented to environment and equipment. Covering service notified. Orders reviewed and will continue to monitor. Upon transfer patient is alert/oriented x4 on 6LNC. No wounds or skin issues noted upon transfer. All patient belongings transferred with patient and placed at bedside.
[2024-01-18] MEDS: vancomycin 1,000 MG in sodium chloride 0.9% 250 ML 250 MG IV (13:26)
--- NOTE | 2024-01-18 14:22 | P.PN_ITS ---
Subjective 2 Subjective: Patient was seen this morning, currently on 7 L, denying any fevers, no chills, no cough, does report persistent shortness of breath Vitals/I&O/Wt Last Vital Signs Temp 97.5 F L 01/18/24 12:00 Pulse 108 H 01/18/24 13:40 Resp 22 H 01/18/24 10:00 BP 120/80 01/18/24 12:00 Pulse Ox 93 01/18/24 13:40 O2 Del Method High Flow Nasal Cannula 01/18/24 13:40 O2 Flow Rate 7 01/18/24 13:40 FiO2 65 01/16/24 11:00 01/17/24 01/18/24 01/18/24 22:59 06:59 14:59 Intake Total 669.2 / 1041.987 254.067 / 1296.054 618.367 / 618.367 Output Total 1550 / 2400 300 / 2700 Balance -880.8 / -1358.013 -45.933 / -1403.946 618.367 / 618.367 Weight last 48 hrs Weight 64.042 kg Weight 64.365 kg Weight 64.552 kg Weight 65.862 kg Physical Exam 2 Const: COMMON NORMALS: no acute distress and patient oriented x3 Resp: COMMON NORMALS: normal respiratory effort, No retractions, No use of accessory muscles and clear to auscultation bilaterally AUSCULTATION: clear to auscultation bilaterally Cardio: COMMON NORMALS: regular rate, regular rhythm, S1 normal heart sound present and S2 normal heart sound present RATE: regular rate RHYTHM: r egular rhythm HEART SOUNDS: S1 normal heart sound present and S2 normal heart sound present GI: COMMON NORMALS: Normal to inspection, nondistended, normoactive bowel sounds present and non-tender Extremity: COMMON NORMALS: no pedal edema Neuro: COMMON NORMALS: patient oriented x3 Psych: COMMON NORMALS: mental status grossly normal Urinary Catheter Management: Francois: Cath Placed During This Visit: yes Reason for Continuing Indwelling Catheter: Accurate Measurement of Urinary Output in Critically Ill Patients Urinary Catheter Date of Insertion: 01/15/24 Urinary Catheter Time of Insertion: 22:33 Data 01/18/24 03:56 01/18/24 03:56 Micro: Microbiology 01/16/24 14:00 Gram Stain - Final Pleural Fluid Body Fluid Culture - Preliminary 01/16/24 19:15 Urine Culture - Preliminary Urine,Clean Catch 01/16/24 19:15 Bacterial Antigens - Final Urine Kidney A&P Assessment and plan (1) Pleural effusion: (2) Acute and chronic respiratory failure ([id number]): (3) Lung cancer: (4) Pulmonary embolism: (5) Pulmonary hypertension: Plan 58-year-old with severe pulmonary hypertension, recently diagnosed pulmonary embolism, left pleural effusion for which she underwent thoracentesis recently. Cytology showing atypical cells. Previously known to have an enlarging left lower lobe mass which was PET avid, unable to undergo biopsy due to severe pulmonary hypertension and risk of respiratory failure. Recommended to undergo presumptive radiation therapy in late 2022, however patient had declined this intervention. Presents after recent discharge today with increasing shortness of breath. Typically at baseline she uses 5 L/min supplemental O2. Today she was found to be saturating 70% on the same, needed to be on nonrebreather at 12 L/min via EMS and then now on BiPAP., Now back on heated high flow ABG shows acute on chronic hypoxic respiratory failure and chronic hypercapnic failure. X-ray shows worsening left-sided pleural effusion. Patient's current respiratory failure is likely a combination of reaccumulation of pleural fluid, COPD exacerbation and pulmonary hypertension. Acute hypoxic respiratory failure secondary to COPD, pleural effusion, possible pneumonia With evidence of hemorrhagic pleural effusion, culture so far negative, -1.2 L of fluid, exudative pleural effusion by lights criteria Plan: Moved to [facility] BiPAP as needed during the day for shortness of breath, currently on 7 L, uses between 5 to 10 L at home Start scheduled nebulization with budesonide and DuoNeb. De-escalate to prednisone 40 mg daily Given evidence of hemorrhagic pleural effusion, will continue heparin drip monitoring hemoglobin Lower suspicion of underlying infective process, however currently started on piperacillin/tazobactam de-escalate off vancomycin Continue sildenafil for pulmonary hypertension at home dosing Lasix 40 mg IV now, CT angiogram of the chest ordered Continue other home medications including levothyroxine, metoprolol DNR/DNI DVT prophylaxis: Currently on heparin drip PUD prophylaxis: Protonix 40 mg daily Plan for today continue IV antibiotics, continue IV diuresis monitor respiratory status monitor hemoglobin Attestations 2 Medical Necessity Statement*: Patient requires hospitalization for shortness of breath respiratory failure secondary COPD, hemorrhagic pleural effusion, possible pneumonia Diagnoses Pleural effusion J90 Acute and chronic respiratory failure ([id number]) J96.20 Lung cancer C34.90 Pulmonary embolism I26.99 Pulmonary hypertension I27.20
[2024-01-18 17:08] LABS: Partial Thromboplastin Time 41.2 SECONDS (23.9-36.7)
[2024-01-18] MEDS: iohexol 350 mg/mL 500 mL Btl (per mL) IV (17:25)
[2024-01-18] MEDS: heparin 5,000 unit/mL INJ 1 mL IV (17:58)
[2024-01-18] MEDS: bisacodyl 5 mg Tablet 10 MG PO (20:18)
[2024-01-18] MEDS: pantoprazole 40 mg SDV IVP (21:50)
[2024-01-18] MEDS: heparin drip 25,000 UNIT/500 ML PREMIX 16 UNIT IV (23:56)
[2024-01-19] VITALS (12 sets, daily range): BP systolic 95–137; BP diastolic 64–92; PULSE 92–121; RESP 17–22; TEMP 36.4–36.7; O2SAT 89–97
[2024-01-19] MEDS: NON-FORMULARY MEDICATION (Sildenafil (Pulm.Hypertension) 20 mg tablet) 20 EACH PO ×2 (00:30→21:01)
[2024-01-19 00:51] LABS: Partial Thromboplastin Time 131.4 SECONDS (23.9-36.7)
[2024-01-19] MEDS: piperacillin-tazobactam 3.375 GM in sodium chloride 0.9% (plus) 50 ML IV ×3 (05:58→21:01)
[2024-01-19] MEDS: levothyroxine 150 mcg Tablet PO (06:42)
[2024-01-19 06:56] LABS: Basophils # 0.1 10^3/uL (0.0-0.1); Basophils % 0.5 %; Hematocrit 48.3 % (36-47); Lymphocytes # 0.1 10^3/uL (0.8-4.8); Lymphocytes % 1.1 %; Mean Corpuscular HGB Conc 31.1 g/dL (30-55); Mean Corpuscular Hemoglobin 29.6 pg (27-33); Mean Corpuscular Volume 95.5 fl (85-98); Monocytes # 0.5 10^3/uL (0.2-0.9); Monocytes % 4.5 %; Neutrophils # 10.03 10^3/uL (1.8-7.7); Neutrophils % 90.6 %; Nucleated Red Blood Cells % 0 %; Platelet Count 411 10^3/cmm (157-399); Red Blood Count 5.06 10^6/uL (3.85-5.65); White Blood Count 11.07 10^3/uL (3.29-11.43)
[2024-01-19 07:14] LABS: Partial Thromboplastin Time 67.6 SECONDS (23.9-36.7)
[2024-01-19 07:18] LABS: NT Pro B Type Natriuretic Pept 631 pg/mL (0-125); Procalcitonin 0.04 ng/mL (0-0.5)
[2024-01-19 07:29] LABS: Anion Gap 16.3 (5-19); Blood Urea Nitrogen 24 mg/dL (8-23); Calcium 8.7 mg/dL (8.5-10.5); Carbon Dioxide 29 mmol/L (22-29); Chloride 101 mmol/L (98-107); Creatinine Clr Calc Pharmacy 63.5439; Glomerular Filtration Rate 63.9 mL/min (90-130); Glucose 90 mg/dL (65-115); Osmolality Calculated 300 mOsm/kg (285-295); Potassium 3.3 mmol/L (3.5-5.1); Sodium 143 mmol/L (136-145)
[2024-01-19] MEDS: ipratropium-albuterol 3 mL Neb INHALATION (08:25)
[2024-01-19] MEDS: budesonide 0.5 mg/2 mL Neb INHALATION ×2 (08:25→19:53)
[2024-01-19] MEDS: [UNRECOGNIZED DRUG - OTHER] 500 EACH PO (08:45)
[2024-01-19] MEDS: potassium chloride ER 20 mEq Tablet PO (08:46)
[2024-01-19] MEDS: multivitamin therapeutic Tablet 1 TAB PO (08:46)
[2024-01-19] MEDS: predniSONE 20 mg Tablet 40 MG PO (08:46)
[2024-01-19] MEDS: cholecalciferol (vitamin D3) 1,000 unit Tablet 2000 UNIT PO (08:46)
[2024-01-19] MEDS: metoprolol tartrate 25 mg Tablet PO (08:46)
--- NOTE | 2024-01-19 10:35 | P.CONIM_ITS ---
Providers/Reason For Consult 2 Consulting Physician/Specialty*: Gustabo Otoole MD/pulmonary critical care Reason for Consult*: Recurrent left pleural effusion Requesting Physician: Candelario Moyer MD Attending Physician: Candelario Moyer MD Primary Care Provider: Bam Calvillo MD History of Present Illness History of Present Illness Chayito Small is a 58 year old female with pulmonary hypertension and COPD. She was recently admitted to hospital on 01/06/2024-for worsening shortness of breath-requiring 7 to 8 L supplemental oxygen at rest.. CTA 01/05/2024 showed large pulmonary embolism along posterior wall of left main pulmonary artery extending into left lower lobe with evidence of right heart strain with RV to LV ratio 1.3. There was large left-sided pleural effusion with complete consolidation of left lower lobe. There is 4.7 x 3 cm mass in the left hilum concerning for neoplasm. She underwent thoracentesis on 01/07/2024-drained 1.5 L hemorrhagic pleural fluid. By lights criteria fluid is exudative. Cytology cellblock-reported specimen concerning for malignancy however insufficient cellular material present. She received Lovenox for PE and transitioned to Eliquis at discharge. She was previously diagnosed with PET avid LLL nodule in 04/2023- she was recommended to start radiation due to high clinical suspicion for ca as she is deemed a high risk for obtaining biopsies due to underlying significant bullous emphysema as well as pulmonary hypertension. She initially was in denial and refused radiation. A repeat CT chest on 07/23/23: : Interval enlargement of a nodule at the pleural surface of the left lower lobe laterally currently measuring 3.4 x 2.7 cm compared with 2.7 x 2.3 cm a similar level on the prior study.she received SBRT in aug-sep 2023 and follows up with radiation oncology. She returned to the ER 01/15/2024 with increasing shortness of breath. She was saturating 70% on her regular 5lpm supplemental home 02. ABg with hypoxia with p02 53 on 12lpm NRB. She needed to be placed on bipap upon arrival. She was admitted for acute on chronic hypoxic respiratory failure and chronic hypercapnic failure. Chest x-ray showed worsening left pleural effusion. She was admitted to ICU, started on scheduled nebulizations and steroids. Held her Eliquis, transition to heparin, started on Zosyn. She underwent thoracentesis on 01/15/2023-drained 1200 cc hemorrhagic fluid. Resent for pleural fluid cytology. Patient continues to have respiratory distress-repeat CTA 01/18/2024-showed redemonstration of eccentric nonocclusive thrombus within the posterior aspect of left main pulmonary artery. 3.5 cm left hilar mass likely malignant in nature. Moderate ipsilateral left hilar and mediastinal lymphadenopathy likely metastatic in nature. Large left pleural effusion with adjacent compressive atelectasis left lung. Pulmonary consult requested for recurrent left pleural effusion. Patient seen at bedside- She is lying down on bed cUrrently she is on 6 L supplemental oxygen; extremely tired Review of Systems 2 General: Reports: 10 or more systems reviewed and unremarkable except in HPI and below Medications/Allergies Home Medications Medication Instructions Recorded Confirmed Last Taken Type nebulizer accessories #2 ea 01/14/20 01/16/24 Unknown Rx cholecalciferol (vitamin D3) 50 2,000 unit PO DAILY 08/21/21 01/16/24 01/15/24 08:00 History mcg (2,000 unit) tablet prednisone 5 mg tablet See Rx Instructions PO .COMPLEX 11/21/22 01/16/24 01/14/24 21:00 Rx PRN joint pain flare #60 tabs sildenafil (pulm.hypertension) 20 20 mg PO TID 90 days #270 tabs 02/04/23 01/16/24 01/15/24 12:00 Rx mg tablet albuterol sulfate 2.5 mg/3 mL 2.5 mg inhalation Q4H PRN 03/29/23 01/16/24 01/15/24 08:00 History (0.083 %) solution for nebulization SHORTNESS OF BREATH/WHEEZING curcumin-phosphatidylcholine 500 500 mg PO DAILY 03/29/23 01/16/24 01/14/24 21:00 History mg capsule magnesium 250 mg tablet 100 mg PO DAILY 03/29/23 01/18/24 01/15/24 08:00 History metoprolol tartrate 25 mg tablet 25 mg PO DAILY Blood Pressure 03/29/23 01/16/24 01/15/24 08:00 History multivitamin 1 tab PO DAILY 03/29/23 01/16/24 01/15/24 08:00 History albuterol sulfate 90 mcg/actuation 2 puff inhalation Q6H PRN 04/29/23 01/16/24 Unknown Rx aerosol inhaler (Ventolin HFA) shortness of breath or wheezing #8.5 grams azelastine 137 mcg-fluticasone 50 1 spray intranasal BID #23 grams 05/06/23 01/16/24 01/05/24 Rx mcg/spray nasal spray hydroxychloroquine 200 mg tablet 200 mg PO BID #60 tabs 11/12/23 01/16/24 01/15/24 08:00 Rx upadacitinib 15 mg tablet,extended 15 mg PO DAILY #30 tabs 11/12/23 01/16/24 01/15/24 12:00 Rx release 24 hr (Rinvoq) acetylcysteine 600 mg capsule (NAC) 600 mg PO DAILY 12/24/23 01/16/24 12/24/23 History cetirizine 10 mg tablet 10 mg PO DAILY 12/24/23 01/16/24 01/15/24 08:00 History ketoconazole 2 % shampoo See Rx Instructions .Route .COMPLEX 12/24/23 01/16/24 01/09/24 History levothyroxine 150 mcg tablet 150 mcg PO DAILY 12/24/23 01/16/24 01/15/24 08:00 History lisinopril 20 mg tablet 20 mg PO DAILY 12/24/23 01/16/24 12/24/23 History sodium chloride 0.65 % nasal spray 2 spray intranasal QID PRN Nasal 12/24/23 01/16/24 01/16/24 00:10 History aerosol Congestion furosemide 20 mg tablet (Lasix) 20 mg PO DAILY PRN edema #30 tabs 01/03/24 01/16/24 01/01/24 Rx potassium chloride 10 mEq 10 meq PO DAILY PRN Diuretic 01/03/24 01/16/24 01/15/24 08:00 Rx capsule,extended release therapy 30 days #30 caps potassium chloride 20 mEq 20 meq PO DAILY #10 tabs 01/03/24 01/16/24 01/05/24 Rx tablet,extended release apixaban 5 mg tablet (Eliquis) 5 mg PO BID #120 tabs 01/08/24 01/16/24 01/15/24 07:00 Rx alendronate 70 mg tablet (Fosamax) See Rx Instructions .Route 01/16/24 01/16/24 01/09/24 06:00 History .COMPLEX Osteoporosis Allergies Allergy/AdvReac Type Severity Reaction Status Date / Time cephalexin Allergy ADR-Nausea Verified 01/10/24 10:09 oxycodone [From Percodan] Allergy ADR-Halluci Verified 01/10/24 10:09 nating Current Medications Generic Name Dose Route Start Last Admin Trade Name Freq PRN Reason Stop Dose Admin Artificial Tears 1 drop 01/16/24 18:52 01/17/24 21:07 Artificial Tears Op Soln 15 Ml Btl EYE-BOTH 1 drop Q4H PRN Administration DRY EYE(S) Bisacodyl 10 mg 01/15/24 21:51 01/18/24 20:18 Bisacodyl 5 Mg Tablet PO 10 mg DAILY PRN Administration Constipation (see protocol) Protocol Budesonide 0.5 mg 01/15/24 21:51 01/19/24 08:25 Budesonide 0.5 Mg/2 Ml Neb INHALATION 0.5 mg BID.RESPIRATORY NEGRITO Administration Heparin Sodium (Porcine) 0 unit 01/15/24 17:31 01/18/24 17:58 Heparin 5,000 Unit/Ml Inj 1 Ml IV 1,700 unit PRN PRN Administration Heparin weight-base protocol Protocol Heparin Sodium/Sodium Chloride 25,000 unit in 500 mls @ 0 mls/hr 01/15/24 17:45 01/19/24 07:38 Heparin Drip IV 9.06 unit/kg/hr .Q0M NEGRITO 12 mls/hr Titration Protocol Per Protocol Piperacillin Sod/Tazobactam 50 mls @ 12.5 mls/hr 01/15/24 21:30 01/19/24 10:19 Sod 3.375 gm/ Sodium Chloride IV Infused Q8H NEGRITO Infusion Protocol Levothyroxine Sodium 150 mcg 01/17/24 07:00 01/19/24 06:42 Levothyroxine 150 Mcg Tablet PO 150 mcg ACBREAKFAST NEGRITO Administration Lisinopril 20 mg 01/16/24 09:00 01/19/24 08:47 Lisinopril 20 Mg Tablet PO Not Given DAILY NEGRITO Magnesium Lactate 84 mg 01/17/24 13:00 01/18/24 11:06 Magnesium Lactate 84 Mg Tablet PO Not Given DAILY NEGRITO Metoprolol Tartrate 25 mg 01/16/24 09:00 01/19/24 08:46 Metoprolol Tartrate 25 Mg Tablet PO 25 mg DAILY NEGRITO Administration Multivitamins Therapeutic 1 tab 01/17/24 09:15 01/19/24 08:46 Multivitamin Therapeutic Tablet PO 1 tab DAILY NEGRITO Administration Non-Formulary Medication 70 mg 01/18/24 06:30 01/18/24 06:18 Alendronate [Fosamax] PO 70 mg Q7D@0630 NEGRITO Administration Non-Formulary Medication 500 mg 01/17/24 09:00 01/19/24 08:45 Curcumin-Phosphatidylcholine PO 500 mg DAILY NEGRITO Administration Non-Formulary Medication 20 mg 01/17/24 09:00 01/19/24 09:59 Sildenafil (Pulm.Hypertension) PO Not Given TID NEGRITO Non-Formulary Medication 500 mg 01/17/24 09:00 01/18/24 08:48 Magnesium PO Not Given DAILY NEGRITO Pantoprazole Sodium 40 mg 01/15/24 21:51 01/18/24 21:50 Pantoprazole 40 Mg Sdv IVP 40 mg Q24H NEGRITO Administration Phenol 3 spray 01/16/24 13:28 01/16/24 21:53 Phenol Oral [place] 177 Ml MUCOUS MEM 3 spray Q2H PRN Administration SORE THROAT Prednisone 40 mg 01/19/24 09:00 01/19/24 08:46 Prednisone 20 Mg Tablet PO 40 mg DAILY NEGRITO Administration Vitamin D 2,000 unit 01/18/24 09:00 01/19/24 08:46 Cholecalciferol (Vitamin D3) 1,000 Unit Tablet PO 2,000 unit DAILY NEGRITO Administration PFSH Acute 2 PFSH: Medical History (Updated 01/19/24 @ 20:10 by Gustabo Otoole MD) Goals of care, counseling/discussion Pulmonary hypertension Pulmonary hypertension Pleural effusion, left PE (pulmonary thromboembolism) Respiratory failure with hypoxia Pulmonary embolism COPD exacerbation Left lower lobe pulmonary nodule Sinus tachycardia COVID Acute and chronic respiratory failure with hypoxia Pneumonia Suspected 2019-nCoV infection CAP (community acquired pneumonia) Eczema Allergic conjunctivitis Seropositive rheumatoid arthritis of multiple sites Chronic respiratory failure with hypoxia Immunization counseling Pulmonary fibrosis High risk medication use Seropositive rheumatoid arthritis COPD (chronic obstructive pulmonary disease) CHF (congestive heart failure) May use lasix 20 mg when needed for leg swelling. -f/u in 2-3 months. Adenocarcinoma of cervix Acquired hypothyroidism Surgical History H/O emergency section Family History Mother Cancer Lung disease Chronic kidney disease (CKD) Family/Other Cancer Grandfather Cancer Other Rheumatoid arthritis Denies family history of Colon cancer Ovarian cancer Diabetes Heart disease Hypercholesteremia Breast cancer Hypertension Uterine cancer Thyroid disease Stroke Social History Smoking and tobacco/nicotine status: former use of tobacco/nicotine Quit status (tobacco/nicotine): has quit using Year quit tobacco: 2012 Former quit date comment: 1 ppd X 34 years Vitals/I&O/Wt Last Vital Signs Temp 97.6 F 01/19/24 07:28 Pulse 108 H 01/19/24 08:25 Resp 22 H 01/19/24 08:25 BP 118/74 01/19/24 07:28 Pulse Ox 91 01/19/24 08:25 O2 Del Method High Flow Nasal Cannula 01/19/24 08:25 O2 Flow Rate 8 01/19/24 08:25 FiO2 65 01/16/24 11:00 01/18/24 01/19/24 01/19/24 22:59 06:59 14:59 Intake Total 884.533 / 1502.900 149.633 / 1652.533 130.8 / 130.8 Output Total 350 / 350 150 / 500 Balance 534.533 / 1152.900 -0.367 / 1152.533 130.8 / 130.8 Weight last 48 hrs Weight 145 lb 4 oz Weight 141 lb 3 oz Weight 141 lb 14.4 oz Physical Exam 2 Narrative: General: alert, in mild respiratory distress HEENT: conj clear, EOMI, PERRL, mmm, Neck: supple, no meningismus Heme: no cervical LAP Respiratory: Inspection: No visible deformity of the chest wall Palpation: Trachea is mildly deviated to the right, bilateral symmetric expansion Percussion: Increased dullness left lower lung zone Auscultation: Reduced breath sounds left lower lung zone Cardiovascular: rrr, nl s1s2, no mrg Abdomen: soft, nt, nd, no r/g, bs+ Extremities: pulses +, no edema, no c/c : no CVA tenderness Skin: intact, no rash MSK: no back or neck pain Neurologic: grossly intact Urinary Catheter Management: Francois: Cath Placed During This Visit: yes Reason for Continuing Indwelling Catheter: Acute Urinary Retention or Obstruction Urinary Catheter Date of Insertion: 01/15/24 Urinary Catheter Time of Insertion: 22:33 Data 01/19/24 14:19 01/19/24 06:41 Other Labs: Radiology Impressions Thoracentesis Ultrasound 01/16/24 09:05 IMPRESSION: 1. LEFT thoracentesis yielding 1200 cc of fluid. Pleural fluid is dark red consistent with blood. 2. Chest radiograph to follow to evaluate for pneumothorax. 3. Pleural fluid specimen collected for analysis. Chest X-Ray 01/18/24 07:00 IMPRESSION: Stable examination with left pleural effusion and underlying lung consolidation resulting in opacification of the lower half of the left hemithorax and patchy interstitial infiltrate right lung base, unchanged. Chest CTA 01/18/24 08:31 IMPRESSION: 1. Redemonstration of eccentric nonocclusive thrombus within the posterior aspect of the left main pulmonary artery unchanged. 2. 3.5 cm left hilar mass likely malignant in nature, unchanged. 3. Moderate ipsilateral left hilar and mediastinal lymphadenopathy likely metastatic in nature. 4. Large left pleural effusion with adjacent compressive atelectasis left lung, stable. 5. Chronic compression fractures T6 and T10 vertebral bodies unchanged. COMMENTS: The presence of pulmonary emphysema on CT is an independent risk factor for lung cancer. In the absence of a history or active diagnosis of lung cancer, it is recommended that this patient with emphysema be evaluated for enrollment in a low dose CT lung cancer screening program. Laboratory Results WBC 10.61 10^3/uL (3.29-11.43) 01/19/24 14:19 RBC 4.42 10^6/uL (3.85-5.65) 01/19/24 14:19 Hgb 13.10 g/dL (11.27-16.99) 01/19/24 14:19 Hct 43.2 % (36-47) 01/19/24 14:19 MCV 97.7 fl (85-98) 01/19/24 14:19 MCH 29.6 pg (27-33) 01/19/24 14:19 MCHC 30.3 g/dL (30-55) 01/19/24 14:19 RDW 13.9 % (12.1-15.1) 01/19/24 14:19 Plt Count 310 10^3/cmm (157-399) 01/19/24 14:19 MPV 9.7 fL (7.4-10.4) 01/19/24 14:19 Neut % (Auto) 92.0 % 01/19/24 14:19 Lymph % (Auto) 0.9 % 01/19/24 14:19 [place] % (Auto) 3.9 % 01/19/24 14:19 Eos % (Auto) 0.0 % 01/19/24 14:19 Baso % (Auto) 0.5 % 01/19/24 14:19 Neut # (Auto) 9.76 10^3/uL (1.8-7.7) H 01/19/24 14:19 Lymph # (Auto) 0.1 10^3/uL (0.8-4.8) L 01/19/24 14:19 [place] # (Auto) 0.4 10^3/uL (0.2-0.9) 01/19/24 14:19 Eos # (Auto) 0.0 10^3/uL (0.0-0.8) 01/19/24 14:19 Baso # (Auto) 0.1 10^3/uL (0.0-0.1) 01/19/24 14:19 Nucleated RBC % (auto) 0 % 01/19/24 14:19 Nucleated RBCs # 0.0 /100WBC 01/19/24 14:19 PT 14.80 SECONDS (12.1-14.9) 01/16/24 11:58 INR 1.13 (0.8-1.2) 01/16/24 11:58 APTT 46.5 SECONDS (23.9-36.7) H 01/19/24 16:28 Specimen Type Arterial 01/16/24 04:57 Sample Site Brachial, right 01/16/24 04:57 ABG pH 7.41 (7.35-7.45) 01/16/24 04:57 ABG pCO2 50.6 mmHg (35-45) H 01/16/24 04:57 ABG pO2 73.7 mmHg (80.0-100.0) L 01/16/24 04:57 ABG PO2/FiO2 Ratio 0 01/15/24 20:15 ABG HCO3 32.0 mmol/L (22-26) H 01/16/24 04:57 ABG O2 Saturation 95.4 01/16/24 04:57 ABG Base Excess 6.1 mmol/L (-2.0-2.0) H 01/16/24 04:57 [place]ino Test N/a 01/16/24 04:57 A-a O2 Gradient 1.8 mmHg (5-10) L 01/16/24 04:57 Hematocrit 40.1 % (37-47) 01/16/24 04:57 Hgb O2 Saturation 93.8 % (95-100) L 01/16/24 04:57 Carboxyhemoglobin 1.4 %THgb (0.4-20.1) 01/16/24 04:57 Methemoglobin 0.2 % (0.4-1.5) L 01/16/24 04:57 Total Hemoglobin 13.1 g/dL (12-16) 01/16/24 04:57 Sodium 140.0 mmol/L (131-143) 01/16/24 04:57 Potassium 3.7 mmol/L (3.5-5.0) 01/16/24 04:57 Glucose 152.0 mg/dL (70-115) H 01/16/24 04:57 Ionized Calcium 1.1 mmol/L (1.1-1.4) 01/16/24 04:57 O2 Delivery Device Nc 01/16/24 04:57 O2 Liters/Min 10.0 % 01/16/24 04:57 FiO2 65.0 % 01/15/24 20:15 Associate Director [employer] ID [email or web address] 01/16/24 04:57 Sodium 143 mmol/L (136-145) 01/19/24 06:41 Potassium 3.3 mmol/L (3.5-5.1) L 01/19/24 06:41 Chloride 101 mmol/L (98-107) 01/19/24 06:41 Carbon Dioxide 29 mmol/L (22-29) 01/19/24 06:41 Anion Gap 16.3 (5-19) 01/19/24 06:41 BUN 24 mg/dL (8-23) H 01/19/24 06:41 Creatinine 0.9 mg/dL (0.5-0.9) 01/19/24 06:41 GFR Calculation 63.9 mL/min (90-130) L 01/19/24 06:41 Glucose 90 mg/dL (65-115) 01/19/24 06:41 Estimat Average Glucose 100 01/16/24 04:27 Hemoglobin A1c 5.1 % (4.0-6.0) 01/16/24 04:27 Calculated Osmolality 300 mOsm/kg (285-295) H 01/19/24 06:41 Lactic Acid 1.0 mmol/L (0.5-2.2) 01/19/24 14:19 Calcium 8.7 mg/dL (8.5-10.5) 01/19/24 06:41 Phosphorus 4.3 mg/dL (2.5-4.5) 01/16/24 04:27 Magnesium 2.2 mg/dL (1.7-2.3) 01/16/24 04:27 Iron 42 ug/dL (37-145) 01/15/24 18:40 TIBC 242 mcg/dl 01/15/24 18:40 % Saturation 17.3 % (20-50) L 01/15/24 18:40 Unsat Iron Binding 200 ug/dL (112-347) 01/15/24 18:40 Total Bilirubin 0.3 mg/dL (0.15-1.2) 01/16/24 04:27 AST 18 U/L (0-32) 01/16/24 04:27 ALT 13 U/L (0-33) 01/16/24 04:27 Alkaline Phosphatase 70 U/L (35-105) 01/16/24 04:27 Lactate Dehydrogenase 324 U/L (135-214) H 01/17/24 07:46 Troponin T Baseline 23 ng/L (0-10) H 01/15/24 16:40 Troponin T 120 Minute 6.00 ng/L (0-10) 01/15/24 18:39 Delta Troponin T -17.00 ABS# (0-10) L 01/15/24 18:39 Troponin T Hi Sens 6Hr 18.59 ng/L (0-10) H 01/15/24 22:47 Troponin T Hi Sens 6Hr Delta -4.41 ng/L (0-12) L 01/15/24 22:47 C-Reactive Protein 32.0 mg/L (0.0-4.9) H 01/19/24 06:41 NT-Pro-B Natriuret Pep 631 pg/mL (0-125) H 01/19/24 06:41 Total Protein 6.2 g/dL (6.6-8.7) L 01/16/24 04:27 Albumin 3.0 g/dL (3.5-5.2) L 01/16/24 04:27 Globulin 3.2 g/dL (1.3-4.6) 01/16/24 04:27 Triglycerides 81 mg/dL (0-150) 01/16/24 04:27 Cholesterol 176 mg/dL (0-200) 01/16/24 04:27 LDL Cholesterol, Calc 103 mg/dL (50-129) 01/16/24 04:27 HDL Cholesterol 57 mg/dL (60-100) L 01/16/24 04:27 LDL/HDL Ratio 1.81 RATIO (0.00-3.22) 01/16/24 04:27 Cholesterol/HDL Ratio 3.09 mg/dL (0.0-4.40) 01/16/24 04:27 Vitamin B12 589 pg/mL (232-1245) 01/15/24 18:40 Folate > 20.0 ng/mL (4.8-37.3) 01/16/24 04:27 Procalcitonin 0.04 ng/mL (0-0.5) 01/19/24 06:41 TSH 0.59 uIU/mL (0.27-4.20) 01/15/24 18:40 Urine Color Yellow (Yellow) 01/16/24 19:15 Urine Appearance Clear (CLEAR) 01/16/24 19:15 Urine pH 5 (5-7) 01/16/24 19:15 Ur Specific [place] 1.005 (1.005-1.030) 01/16/24 19:15 Urine Protein Neg (Negative) 01/16/24 19:15 Urine Glucose (UA) Norm (Normal) 01/16/24 19:15 Urine Ketones Negative (Negative) 01/16/24 19:15 Urine Blood Neg (Negative) 01/16/24 19:15 Urine Nitrate Negative (Negative) 01/16/24 19:15 Urine Bilirubin Neg (Negative) 01/16/24 19:15 Urine Urobilinogen Norm mg/dL (Negative) 01/16/24 19:15 Ur Leukocyte Esterase 1+ (Negative) H 01/16/24 19:15 Urine RBC 0-4 /hpf (0-2) H 01/16/24 19:15 Urine WBC 21-50 /hpf (0-5) 01/16/24 19:15 Ur Squamous Epith Cells None /hpf (0-5) 01/16/24 19:15 Uric Acid Crystals 0-4 /hpf 01/16/24 19:15 Amorphous Sediment Not Reportable 01/16/24 19:15 Urine Bacteria Trace /hpf (NONE) 01/16/24 19:15 Fluid Color Red 01/16/24 14:00 Fluid Appearance Cloudy 01/16/24 14:00 Fluid WBC 459 /uL 01/16/24 14:00 Fluid RBC 92.000 10^3/uL 01/16/24 14:00 Fluid Hematocrit 1.0 % 01/16/24 14:00 Fld Polynuclear WBCs # 0.092 01/16/24 14:00 Fld Polynuclear WBCs % 20.100 % 01/16/24 14:00 Fl Mononucl WBCs #(Auto) 0.367 01/16/24 14:00 Fl Mononuclear % Auto 79.900 % 01/16/24 14:00 Fld Crystal Laterality Left lower 01/16/24 14:00 Fluid Albumin 2.1 g/dL 01/16/24 14:00 Fluid Creatinine 1.0 (0.5-0.9) H 01/16/24 14:00 Pleural pH 9.00 (6.5-7.5) H 01/16/24 14:00 Pleural Total Protein 3.4 g/dL 01/16/24 14:00 Pleural LDH 488 U/L 01/16/24 14:00 Pleural Glucose 133.0 mg/dL 01/16/24 14:00 Pleural Triglycerides 28 mg/dL 01/16/24 14:00 Vancomycin Trough 22.0 ug/mL (10-15) H 01/17/24 07:46 C. difficile (PCR) Negative (Negative) 01/19/24 11:43 Micro: Microbiology 01/16/24 19:15 Urine Culture - Final Urine,Clean Catch 01/16/24 14:00 Gram Stain - Final Pleural Fluid Body Fluid Culture - Preliminary A&P Assessment and plan (1) Pulmonary hypertension: (2) Recurrent left pleural effusion: (3) Goals of care, counseling/discussion: (4) Lung cancer: (5) Acute and chronic respiratory failure ([id number]): (6) Pulmonary embolism: (7) Pulmonary hypertension: Plan # Recurrent hemorrhagic left pleural effusion # Goals of care discussion -I discussed frankly with patient she has high likelihood of metastatic lung cancer with metastatic pleural effusion-she is still in denial of malignancy. Even if it turns out to be malignancy-; she understands that she is not a surgical candidate given her significant bullous emphysema, poor lung function, probable advance stage, although she is still in denial of malignancy diagnosis. Even if it turns out to be malignancy-he does not want chemotherapy or radiation. -Given her overall prognosis-with underlying bullous emphysema with significantly high FiO2 requirement as outpatient (up to 6 to 8 L at rest and 10 to 15 L on ambulation ); underlying pulmonary hypertension; and possible metastatic malignancy-discussed about hospice.however patient does not want to think about it right now. --Given overall context-I discussed frankly with patient she has high likelihood of metastatic lung cancer with metastatic pleural effusion and offered Jermaine drain placement for palliative drainage. I have explained the possible complications of indwelling did not drain like catheter related infections. -She agrees that she is severely deconditioned and it is difficult her to come to hospital frequently for drainage; and states she would think about either repeat thoracentesis versus Jermaine drain placement and will let me know tomorrow. We will hold heparin 4 hours prior to procedure. # LLL nodule-s/p SBRT August 2023 # CTA with ipsilateral hilar/mediastinal lymphadenopathy 3.5 cm hilar mass- appears metastatic lesion -01/07/2024-s/p first thoracentesis 1500 cc hemorrhagic fluid 01/07/2024-cytology suspicious for malignancy; insufficient material -01/15/2024-s/p second thoracentesis 1200 cc hemorrhagic fluid-cytology pending -She is very high risk for bronchoscopy and biopsies-given her significant FiO2 requirements as well as underlying bullous emphysema and pulmonary hypertension. She understands the risks and refuses biopsies. # Acute on chronic hypoxic respiratory failure-and inpatient with significant pulmonary hypertension/suspected lung malignancy/recurrent left pleural effusion/significant bullous emphysema/pulmonary embolism -Currently her FiO2 requirement down to 6 L. This is her baseline and she requires up to 15 L on exertion as outpatient. -First week of January 2024 CTA showed left pulmonary embolism for which she was on Eliquis-switch to heparin drip-in anticipation for Pleurx catheter/thoracentesis Consult Attestations 2 Medical Necessity Statement: Will plan for repeat thoracentesis/Timodine placement Time Spent in Patient Care: Greater than 35 minutes (>than 50% of time spent in counselling and/or direct pt care on unit) . Coding Level of Care Code Acute Code for Chg Fwd Diagnoses Pulmonary hypertension I27.20 Recurrent left pleural effusion J90 Goals of care, counseling/discussion Z71.89 Lung cancer C34.90 Acute and chronic respiratory failure ([id number]) J96.20 Pulmonary embolism I26.99 Time Spent (min) 48
[2024-01-19] MEDS: magnesium lactate 84 mg Tablet PO (10:41)
[2024-01-19 12:51] LABS: C.Diff PCR (Lab) NEGATIVE (Negative)
[2024-01-19] MEDS: albuterol 2.5 mg/3 mL Neb INHALATION ×2 (13:31→19:53)
--- NOTE | 2024-01-19 14:04 | P.PN_ITS ---
Subjective 2 Subjective: Patient was seen this morning, she continues to have complaints of shortness of breath and fatigue and malaise, no fevers or chills no lightheadedness, no dizziness Vitals/I&O/Wt Last Vital Signs Temp 98.0 F 01/19/24 11:53 Pulse 106 H 01/19/24 13:31 Resp 20 H 01/19/24 13:31 BP 95/64 01/19/24 11:53 Pulse Ox 96 01/19/24 13:31 O2 Del Method High Flow Nasal Cannula 01/19/24 13:31 O2 Flow Rate 7 01/19/24 13:31 FiO2 65 01/16/24 11:00 01/18/24 01/19/24 01/19/24 22:59 06:59 14:59 Intake Total 884.533 / 1502.900 149.633 / 1652.533 130.8 / 130.8 Output Total 350 / 350 150 / 500 Balance 534.533 / 1152.900 -0.367 / 1152.533 130.8 / 130.8 Weight last 48 hrs Weight 68.81 kg Weight 65.884 kg Weight 64.042 kg Weight 64.365 kg Physical Exam 2 Const: COMMON NORMALS: no acute distress and patient oriented x3 Resp: COMMON NORMALS: normal respiratory effort, No retractions and No use of accessory muscles OTHER: Decreased breath sounds left lung base Cardio: COMMON NORMALS: regular rate, regular rhythm, S1 normal heart sound present and S2 normal heart sound present RATE: regular rate RHYTHM: r egular rhythm HEART SOUNDS: S1 normal heart sound present and S2 normal heart sound present GI: COMMON NORMALS: Normal to inspection, nondistended, normoactive bowel sounds present and non-tender Extremity: COMMON NORMALS: no pedal edema Neuro: COMMON NORMALS: patient oriented x3 Psych: COMMON NORMALS: mental status grossly normal Urinary Catheter Management: Francois: Cath Placed During This Visit: yes Reason for Continuing Indwelling Catheter: Acute Urinary Retention or Obstruction Urinary Catheter Date of Insertion: 01/15/24 Urinary Catheter Time of Insertion: 22:33 Data 01/19/24 06:41 01/19/24 06:41 Micro: Microbiology 01/16/24 14:00 Gram Stain - Final Pleural Fluid Body Fluid Culture - Final 01/16/24 19:15 Urine Culture - Final Urine,Clean Catch A&P Assessment and plan (1) Pleural effusion: (2) Acute and chronic respiratory failure ([id number]): (3) Lung cancer: (4) Pulmonary embolism: (5) Pulmonary hypertension: Plan 58-year-old with severe pulmonary hypertension, recently diagnosed pulmonary embolism, left pleural effusion for which she underwent thoracentesis recently. Cytology showing atypical cells. Previously known to have an enlarging left lower lobe mass which was PET avid, unable to undergo biopsy due to severe pulmonary hypertension and risk of respiratory failure. Recommended to undergo presumptive radiation therapy in late 2022, however patient had declined this intervention. Presents after recent discharge today with increasing shortness of breath. Typically at baseline she uses 5 L/min supplemental O2. Today she was found to be saturating 70% on the same, needed to be on nonrebreather at 12 L/min via EMS and then now on BiPAP., Now back on heated high flow ABG shows acute on chronic hypoxic respiratory failure and chronic hypercapnic failure. X-ray shows worsening left-sided pleural effusion. Patient's current respiratory failure is likely a combination of reaccumulation of pleural fluid, COPD exacerbation and pulmonary hypertension. Acute hypoxic respiratory failure secondary to COPD, pleural effusion, possible pneumonia With evidence of hemorrhagic pleural effusion, culture so far negative, -1.2 L of fluid, exudative pleural effusion by lights criteria Plan: Moved to MedSurg BiPAP as needed during the day for shortness of breath, currently on 7 L, uses between 5 to 10 L at home Start scheduled nebulization with budesonide and DuoNeb. De-escalate to prednisone 40 mg daily Given evidence of hemorrhagic pleural effusion, will continue heparin drip monitoring hemoglobin Lower suspicion of underlying infective process, however currently started on piperacillin/tazobactam de-escalate off vancomycin Continue sildenafil for pulmonary hypertension at home dosing Hold off on Lasix therapy CT angiogram of the chest CT/CT angio chest [id number] IMPRESSION: 1. Redemonstration of eccentric nonocclusive thrombus within the posterior aspect of the left main pulmonary artery unchanged. 2. 3.5 cm left hilar mass likely malignant in nature, unchanged. 3. Moderate ipsilateral left hilar and mediastinal lymphadenopathy likely metastatic in nature. 4. Large left pleural effusion with adjacent compressive atelectasis left lung, stable. 5. Chronic compression fractures T6 and T10 vertebral bodies unchanged. Continue other home medications including levothyroxine, metoprolol DNR/DNI DVT prophylaxis: Currently on heparin drip PUD prophylaxis: Protonix 40 mg daily Plan for today continue IV antibiotics, continue IV diuresis monitor respiratory status monitor hemoglobin Attestations 2 Medical Necessity Statement*: Patient requires hospitalization for hemorrhagic pleural effusion, shortness of breath respiratory failure, COPD exacerbation Diagnoses Pleural effusion J90 Acute and chronic respiratory failure ([id number]-[id number]) J96.20 Lung cancer C34.90 Pulmonary embolism I26.99 Pulmonary hypertension I27.20
[2024-01-19 14:34] LABS: Basophils # 0.1 10^3/uL (0.0-0.1); Basophils % 0.5 %; Hematocrit 43.2 % (36-47); Lymphocytes # 0.1 10^3/uL (0.8-4.8); Lymphocytes % 0.9 %; Mean Corpuscular HGB Conc 30.3 g/dL (30-55); Mean Corpuscular Hemoglobin 29.6 pg (27-33); Mean Corpuscular Volume 97.7 fl (85-98); Mean Platelet Volume 9.7 fL (7.4-10.4); Monocytes # 0.4 10^3/uL (0.2-0.9); Monocytes % 3.9 %; Neutrophils # 9.76 10^3/uL (1.8-7.7); Nucleated Red Blood Cells % 0 %; Platelet Count 310 10^3/cmm (157-399); Red Blood Count 4.42 10^6/uL (3.85-5.65); Red Cell Distribution Width 13.9 % (12.1-15.1); White Blood Count 10.61 10^3/uL (3.29-11.43)
[2024-01-19 16:57] LABS: Partial Thromboplastin Time 46.5 SECONDS (23.9-36.7)
[2024-01-19] MEDS: pantoprazole 40 mg SDV IVP (21:01)
[2024-01-19 23:43] LABS: Partial Thromboplastin Time 64.3 SECONDS (23.9-36.7)
[2024-01-20] VITALS (15 sets, daily range): BP systolic 106–139; BP diastolic 61–83; PULSE 88–127; RESP 16–22; TEMP 36.5–37.1; O2SAT 86–97
[2024-01-20] MEDS: albuterol 2.5 mg/3 mL Neb INHALATION ×4 (01:39→21:05)
[2024-01-20] MEDS: acetaminophen 325 mg Tablet 650 MG PO (05:17)
[2024-01-20] MEDS: piperacillin-tazobactam 3.375 GM in sodium chloride 0.9% (plus) 50 ML IV ×2 (05:24→12:37)
[2024-01-20 05:49] LABS: Partial Thromboplastin Time 83.9 SECONDS (23.9-36.7)
[2024-01-20] MEDS: heparin drip 25,000 UNIT/500 ML PREMIX 12 UNIT IV (05:57)
[2024-01-20 06:01] LABS: NT Pro B Type Natriuretic Pept 933 pg/mL (0-125); Procalcitonin 0.05 ng/mL (0-0.5)
[2024-01-20] MEDS: levothyroxine 150 mcg Tablet PO (06:49)
[2024-01-20 08:45] LABS: Blood Urea Nitrogen 26 mg/dL (8-23); Calcium 8.8 mg/dL (8.5-10.5); Carbon Dioxide 21 mmol/L (22-29); Chloride 106 mmol/L (98-107); Creatinine Clr Calc Pharmacy 56.3221; Glomerular Filtration Rate 56.6 mL/min (90-130); Glucose 90 mg/dL (65-115); Osmolality Calculated 302 mOsm/kg (285-295); Sodium 144 mmol/L (136-145)
[2024-01-20] MEDS: predniSONE 20 mg Tablet 40 MG PO (08:46)
[2024-01-20] MEDS: multivitamin therapeutic Tablet 1 TAB PO (08:46)
[2024-01-20] MEDS: magnesium lactate 84 mg Tablet PO (08:46)
[2024-01-20] MEDS: cholecalciferol (vitamin D3) 1,000 unit Tablet 2000 UNIT PO (08:46)
[2024-01-20 08:50] LABS: Anion Gap 20.9 (5-19); Potassium 3.9 mmol/L (3.5-5.1)
[2024-01-20] MEDS: [UNRECOGNIZED DRUG - OTHER] 500 EACH PO (08:50)
[2024-01-20] MEDS: budesonide 0.5 mg/2 mL Neb INHALATION ×2 (08:58→21:05)
[2024-01-20 09:49] LABS: Basophils # 0.1 10^3/uL (0.0-0.1); Basophils % 0.4 %; Eosinophils % 0.2 %; Hematocrit 41.6 % (36-47); Lymphocytes # 0.2 10^3/uL (0.8-4.8); Lymphocytes % 1.9 %; Mean Corpuscular Hemoglobin 29.1 pg (27-33); Mean Corpuscular Volume 93.9 fl (85-98); Monocytes # 0.6 10^3/uL (0.2-0.9); Monocytes % 5.6 %; Neutrophils # 9.93 10^3/uL (1.8-7.7); Neutrophils % 87.4 %; Nucleated Red Blood Cells % 0 %; Platelet Count 355 10^3/cmm (157-399); Red Blood Count 4.43 10^6/uL (3.85-5.65); Red Cell Distribution Width 14.1 % (12.1-15.1); White Blood Count 11.35 10^3/uL (3.29-11.43)
--- NOTE | 2024-01-20 10:54 | PM.PN ---
Subjective Subjective: Patient was seen this morning, she continues to have complaints of shortness of breath and fatigue and malaise, Bedside ultrasound showed significant left pleural effusion-patient agreed for Jermaine drain placement Will hold off heparin for 4 hours and proceed with renal drain placement today afternoon Medications: Reviewed: Yes Vitals/I&O/Wt Last Vital Signs Temp 98.1 F 01/20/24 07:58 Pulse 109 H 01/20/24 09:14 Resp 18 01/20/24 08:58 BP 117/80 01/20/24 07:58 Pulse Ox 95 01/20/24 08:58 O2 Del Method High Flow Nasal Cannula 01/20/24 08:58 O2 Flow Rate 9 01/20/24 08:58 FiO2 65 01/16/24 11:00 01/19/24 01/20/24 01/20/24 22:59 06:59 14:59 Intake Total 164.2 / 295.0 216.400 / 511.400 100 / 100 Output Total 450 / 450 0 / 450 Balance -285.8 / -155.0 216.400 / 61.400 100 / 100 Weight last 48 hrs Weight 140 lb 3 oz Weight 151 lb 11.2 oz Weight 145 lb 4 oz Physical Exam Narrative: General: alert, in mild respiratory distress HEENT: conj clear, EOMI, PERRL, mmm, Neck: supple, no meningismus Heme: no cervical LAP Respiratory: Inspection: No visible deformity of the chest wall Palpation: Trachea is mildly deviated to the right, bilateral symmetric expansion Percussion: Increased dullness left lower lung zone Auscultation: Reduced breath sounds left lower lung zone Cardiovascular: rrr, nl s1s2, no mrg Abdomen: soft, nt, nd, no r/g, bs+ Extremities: pulses +, no edema, no c/c : no CVA tenderness Skin: intact, no rash MSK: no back or neck pain Neurologic: grossly intact Urinary Catheter Management: Francois: Cath Placed During This Visit: yes Reason for Continuing Indwelling Catheter: Other Urinary Catheter Date of Insertion: 01/15/24 Urinary Catheter Time of Insertion: 22:33 Data 01/20/24 09:39 01/20/24 05:00 Micro: Microbiology 01/16/24 14:00 Gram Stain - Final Pleural Fluid Body Fluid Culture - Final 01/16/24 19:15 Urine Culture - Final Urine,Clean Catch A&P Assessment and plan (1) Pulmonary hypertension: (2) Recurrent left pleural effusion: (3) Goals of care, counseling/discussion: (4) Lung cancer: (5) Acute and chronic respiratory failure (rhkpn-[id number]): (6) Pulmonary embolism: (7) Pulmonary hypertension: Plan # Recurrent hemorrhagic left pleural effusion # Goals of care discussion -I discussed frankly with patient she has high likelihood of metastatic lung cancer with metastatic pleural effusion-she is still in denial of malignancy. Even if it turns out to be malignancy-; she understands that she is not a surgical candidate given her significant bullous emphysema, poor lung function, probable advance stage, although she is still in denial of malignancy diagnosis. Even if it turns out to be malignancy-he does not want chemotherapy or radiation. -Given her overall prognosis-with underlying bullous emphysema with significantly high FiO2 requirement as outpatient (up to 6 to 8 L at rest and 10 to 15 L on ambulation ); underlying pulmonary hypertension; and possible metastatic malignancy-discussed about hospice.however patient does not want to think about it right now. --Given overall context-I discussed frankly with patient she has high likelihood of metastatic lung cancer with metastatic pleural effusion and offered Josephine drain placement for palliative drainage. I have explained the possible complications of indwelling drain can sometimes cause catheter related infections which may need removal of the drain and antibiotics -She agrees that she is severely deconditioned and it is difficult her to come to hospital frequently for drainage; and agreed to proceed with Jermaine drain placement. We will hold heparin 4 hours prior to procedure. # LLL nodule-s/p SBRT August 2023 # CTA with ipsilateral hilar/mediastinal lymphadenopathy 3.5 cm hilar mass-appears metastatic lesion -01/07/2024-s/p first thoracentesis 1500 cc hemorrhagic fluid 01/07/2024-cytology suspicious for malignancy; insufficient material -01/15/2024-s/p second thoracentesis 1200 cc hemorrhagic fluid-cytology pending -She is very high risk for bronchoscopy and biopsies-given her significant FiO2 requirements as well as underlying bullous emphysema and pulmonary hypertension. She understands the risks and refuses biopsies. # Acute on chronic hypoxic respiratory failure-and inpatient with significant pulmonary hypertension/suspected lung malignancy/recurrent left pleural effusion/significant bullous emphysema/pulmonary embolism -Currently her FiO2 requirement down to 6 L. This is her baseline and she requires up to 15 L on exertion as outpatient. -First week of January 2024 CTA showed left pulmonary embolism for which she was on Eliquis-switch to heparin drip-in anticipation for Pleurx catheter; we can switch to Eliquis after Josephine drain placement Attestations Medical Necessity Statement*: Scheduled for Josephine drain placement today afternoon and awaiting social work faculty member evaluation for home health arrangements Time Spent in Patient Care: Greater than 35 minutes (>than 50% of time spent in counselling and/or direct pt care on unit). Coding Level of Care Code Acute Code for Chg Fwd Diagnoses Pulmonary hypertension I27.20 Recurrent left pleural effusion J90 Goals of care, counseling/discussion Z71.89 Lung cancer C34.90 Acute and chronic respiratory failure ([id number]) J96.20 Pulmonary embolism I26.99 Time Spent (min) 36
[2024-01-20 11:43] LABS: Partial Thromboplastin Time 49.3 SECONDS (23.9-36.7)
[2024-01-20 13:14] LABS: Methicillin-Resist S.aureu PCR NOT DETECTED (NOT DETECTED)
[2024-01-20] MEDS: morphine 4 mg/mL SDV 1 mL 2 MG IVP (14:27)
--- NOTE | 2024-01-20 15:11 | XRR_ITS ---
PROCEDURE INFORMATION: Exam: XR Chest Exam date and time: 01/20/2024 3:30 PM Age: 58 years old Clinical indication: Device placement; Other: Lipscomb drain; Additional info: Lipscomb drain placement TECHNIQUE: Imaging protocol: Radiologic exam of the chest. Views: 1 view. COMPARISON: CT angio chest [id number] 01/18/2024 5:23 PM and chest x-ray dated 01/18/2024 FINDINGS: Tubes, catheters and devices: There has been interval placement of a left pleural drain. Lungs: There are stable left lower lobe opacities. There are emphysematous changes. There are reticular opacities within the right lung base suspicious for fibrosis Pleural spaces: There has been slight interval improvement in a moderate-sized partially loculated left pleural effusion. No pneumothorax is seen. Heart/Mediastinum: The heart is mildly enlarged. There is left hilar enlargement consistent with known left hilar mass. Bones/joints: Unremarkable. XR/XR chest 1V portable [id number] IMPRESSION: 1. Interval placement of a left pleural drain with slight interval improvement in a partially loculated left pleural effusion 2. Persistent left lower lobe opacities which may reflect atelectasis versus pneumonia. 3. COPD and reticular right basilar opacities suspicious for pulmonary fibrosis
--- NOTE | 2024-01-20 15:26 | PM.ACPR ---
Procedure/Consent Time out: Time Out Performed: Yes Consent: Consent for Procedure: Consent obtained from patient, Risks & Benefits reviewed and Agrees to proceed with procedure Procedure Narrative: Procedure: DATE OF PROCEDURE: 01/20/2024 PREOPERATIVE DIAGNOSIS: Recurrent Left pleural effusion causing symptomatic dyspnea. POSTOPERATIVE DIAGNOSIS: Recurrent Left pleural effusion causing symptomatic dyspnea. PROCEDURE PERFORMED: 70327: Insertion of tunneled Pleurx catheter in the Left pleural cavity 26067: Moderate sedation SURGEON: Gustabo Otoole MD [facility] ANESTHESIA: Moderate sedation with Morphine 2 Mg IV push ASA: 3 INDICATION FOR PROCEDURE: Ms. Chayito Small is a 58-year-old female with suspected lung malignancy has been having recurrent Left pleural effusion causing symptomatic dyspnea. In an effort to palliate respiratory symptoms, PleurX catheter placement was considered for home drainage. The patient and his family understood the risks and possible complications of the procedure and wished to proceed. DESCRIPTION OF PROCEDURE: The patient was placed supine on the operating table. Patient was connected to telemetry, oxygen, hemodynamic monitoring. After doing appropriate timeout, patient was given Morphine 2 Mg IV push for moderate sedation (15889). The patient was then positioned with the head up and a roll under the Left shoulder. The Left chest and upper abdomen were prepped and draped in the usual sterile fashion. 15 cc 1% local lidocaine is used for local anesthesia. A small counterincision was made in the Left upper quadrant area. Through the anterior axillary line area, the pleural space was accessed by Seldinger technique using ultrasound guidance. The counterincision was made around the guidewire and then the indwelling PleurX catheter was tunneled from the Left upper quadrant small incision to the one overlying the ribs. After appropriate dilation a sheath introducer was then passed over the wire and then the PleurX catheter was placed through the sheath introducer. There was good return of fluid. 1000 cc of Hemorrhagic fluid was withdrawn slowly as the small counterincision was closed with Monocryl stitch. The catheter was capped off, and sterile dressings were applied. The patient tolerated the procedure well without any complications. The patient vitals remained stable. Sponge and needle count was correct at the end of the case. OPERATIVE FINDINGS: 1000 cc hemorrhagic fluid was withdrawn before clamping the drainage tube. There were overt no bleeding complications. Estimated blood loss: 5 to 10 cc Immediate complications: None Acute Procedures Epistaxis Control: Time out performed: Yes
--- NOTE | 2024-01-20 15:33 | PC.SOCIAL ---
IMM Update IMM updated, copy given to patient and placed in chart.
--- NOTE | 2024-01-20 15:56 | P.PN_ITS ---
Subjective 2 Subjective: Patient was seen this morning, denies any fevers, chills, no cough, she is excited about having her Pleurx catheter placed, as she feels that it will help with her persistent shortness of breath, she tells me that he feels like her lungs are drowning and fluid Vitals/I&O/Wt Last Vital Signs Temp 98.0 F 01/20/24 11:37 Pulse 127 H 01/20/24 14:17 Resp 20 H 01/20/24 13:58 BP 106/77 01/20/24 11:37 Pulse Ox 92 01/20/24 13:58 O2 Del Method High Flow Nasal Cannula 01/20/24 13:58 O2 Flow Rate 8 01/20/24 13:58 FiO2 65 01/16/24 11:00 01/20/24 01/20/24 01/20/24 06:59 14:59 22:59 Intake Total 216.400 / 511.400 220 / 220 Output Total 0 / 450 Balance 216.400 / 61.400 220 / 220 Weight last 48 hrs Weight 64.546 kg Weight 63.588 kg Weight 68.81 kg Weight 65.884 kg Physical Exam 2 Const: COMMON NORMALS: no acute distress and patient oriented x3 Resp: COMMON NORMALS: normal respiratory effort, No retractions and No use of accessory muscles OTHER: Decreased aeration left lung base Cardio: COMMON NORMALS: regular rate, regular rhythm, S1 normal heart sound present and S2 normal heart sound present RATE: regular rate RHYTHM: r egular rhythm HEART SOUNDS: S1 normal heart sound present and S2 normal heart sound present GI: COMMON NORMALS: Normal to inspection, nondistended, normoactive bowel sounds present and non-tender Extremity: COMMON NORMALS: no pedal edema Neuro: COMMON NORMALS: patient oriented x3 Psych: COMMON NORMALS: mental status grossly normal Urinary Catheter Management: Francois: Cath Placed During This Visit: yes Reason for Continuing Indwelling Catheter: Other Urinary Catheter Date of Insertion: 01/15/24 Urinary Catheter Time of Insertion: 22:33 Data 01/20/24 09:39 01/20/24 05:00 Micro: Microbiology 01/16/24 14:00 Gram Stain - Final Pleural Fluid Body Fluid Culture - Final A&P Assessment and plan (1) Pleural effusion: (2) Acute and chronic respiratory failure ([id number]): (3) Lung cancer: (4) Pulmonary embolism: (5) Pulmonary hypertension: Plan 58-year-old with severe pulmonary hypertension, recently diagnosed pulmonary embolism, left pleural effusion for which she underwent thoracentesis recently. Cytology showing atypical cells. Previously known to have an enlarging left lower lobe mass which was PET avid, unable to undergo biopsy due to severe pulmonary hypertension and risk of respiratory failure. Recommended to undergo presumptive radiation therapy in late 2022, however patient had declined this intervention. Presents after recent discharge today with increasing shortness of breath. Typically at baseline she uses 5 L/min supplemental O2. Today she was found to be saturating 70% on the same, needed to be on nonrebreather at 12 L/min via EMS and then now on BiPAP., Now back on heated high flow ABG shows acute on chronic hypoxic respiratory failure and chronic hypercapnic failure. X-ray shows worsening left-sided pleural effusion. Patient's current respiratory failure is likely a combination of reaccumulation of pleural fluid, COPD exacerbation and pulmonary hypertension. Acute hypoxic respiratory failure secondary to COPD, pleural effusion, possible pneumonia With evidence of hemorrhagic pleural effusion, culture so far negative, -1.2 L of fluid, exudative pleural effusion by lights criteria Plan: Moved to MedSurg BiPAP as needed during the day for shortness of breath, currently on 7 L, uses between 5 to 10 L at home Start scheduled nebulization with budesonide and DuoNeb. De-escalate to prednisone 40 mg daily Given evidence of hemorrhagic pleural effusion, will continue heparin drip monitoring hemoglobin, currently on hold for Pleurx catheter placement Lower suspicion of underlying infective process, however currently started on piperacillin/tazobactam Continue sildenafil for pulmonary hypertension at home dosing Hold off on Lasix therapy CT angiogram of the chest CT/CT angio chest [id number] IMPRESSION: 1. Redemonstration of eccentric nonocclusive thrombus within the posterior aspect of the left main pulmonary artery unchanged. 2. 3.5 cm left hilar mass likely malignant in nature, unchanged. 3. Moderate ipsilateral left hilar and mediastinal lymphadenopathy likely metastatic in nature. 4. Large left pleural effusion with adjacent compressive atelectasis left lung, stable. 5. Chronic compression fractures T6 and T10 vertebral bodies unchanged. Continue other home medications including levothyroxine, metoprolol DNR/DNI DVT prophylaxis: Currently on heparin drip PUD prophylaxis: Protonix 40 mg daily Plan for today Pleurx drain catheter placement, spoke to pulmonary critical care, continue IV antibiotics, PT OT, heparin drip on hold for Pleurx drain catheter placement Attestations 2 Medical Necessity Statement*: Patient requires hospitalization for acute respiratory failure, hemorrhagic pleural effusion Diagnoses Pleural effusion J90 Acute and chronic respiratory failure ([id number]) J96.20 Lung cancer C34.90 Pulmonary embolism I26.99 Pulmonary hypertension I27.20
--- NOTE | 2024-01-20 20:06 | PC.NURSE ---
Patient refused Metoprolol this morning. Patient is now stating that she wants it. Dr. Nath notified and gave one time order for dose that was refused this morning.
[2024-01-20] MEDS: metoprolol tartrate 25 mg Tablet PO (21:01)
[2024-01-20] MEDS: apixaban 5 mg Tablet PO (21:01)
[2024-01-20] MEDS: pantoprazole 40 mg SDV IVP (21:01)
--- NOTE | 2024-01-20 23:31 | PC.NURSE ---
Patient refusing SCDs. Patient educated that SCDs are to prevent blood clots and stated I don't need them, I'll be fine.
--- NOTE | 2024-01-20 23:41 | PC.NURSE ---
Heparin drip still shows as running in oct, however it was not running upon my arrival on shift.
[2024-01-21] VITALS (14 sets, daily range): BP systolic 93–133; BP diastolic 59–91; PULSE 85–116; RESP 16–20; TEMP 36.4–36.8; O2SAT 2–96
[2024-01-21] MEDS: albuterol 2.5 mg/3 mL Neb INHALATION ×3 (02:05→20:39)
[2024-01-21 05:02] LABS: Basophils # 0.1 10^3/uL (0.0-0.1); Basophils % 0.5 %; Eosinophils % 0.1 %; Hematocrit 42.1 % (36-47); Lymphocytes # 0.2 10^3/uL (0.8-4.8); Lymphocytes % 1.3 %; Mean Corpuscular HGB Conc 30.9 g/dL (30-55); Mean Corpuscular Hemoglobin 29.5 pg (27-33); Mean Corpuscular Volume 95.7 fl (85-98); Mean Platelet Volume 9.8 fL (7.4-10.4); Monocytes # 0.6 10^3/uL (0.2-0.9); Monocytes % 5.3 %; Neutrophils # 10.56 10^3/uL (1.8-7.7); Neutrophils % 88.9 %; Nucleated Red Blood Cells % 0.2 %; Platelet Count 286 10^3/cmm (157-399); Red Cell Distribution Width 14.1 % (12.1-15.1); White Blood Count 11.87 10^3/uL (3.29-11.43)
--- NOTE | 2024-01-21 05:14 | PC.NURSE ---
Addendum entered by Vania Gregory RN 01/21/24 06:42: 500 ml bolus ordered. Original Note: Patient only had 200 ml urine output in wells throughout shift. Dr. Nath notified.
[2024-01-21 05:37] LABS: Blood Urea Nitrogen 24 mg/dL (8-23); Calcium 8.4 mg/dL (8.5-10.5); Carbon Dioxide 23 mmol/L (22-29); Chloride 103 mmol/L (98-107); Creatinine Clr Calc Pharmacy 63.6866; Glomerular Filtration Rate 63.9 mL/min (90-130); Glucose 97 mg/dL (65-115); Osmolality Calculated 294 mOsm/kg (285-295); Sodium 140 mmol/L (136-145)
[2024-01-21 05:38] LABS: Anion Gap 18.1 (5-19); Potassium 4.1 mmol/L (3.5-5.1)
[2024-01-21] MEDS: levothyroxine 150 mcg Tablet PO (05:54)
[2024-01-21] MEDS: sodium chloride 0.9% 500 ML IV (07:19)
[2024-01-21] MEDS: amoxicillin-clav 875-125 mg Tablet 1 TAB PO ×2 (07:58→17:09)
[2024-01-21] MEDS: predniSONE 20 mg Tablet 40 MG PO (07:58)
[2024-01-21] MEDS: [UNRECOGNIZED DRUG - OTHER] 500 EACH PO (07:58)
[2024-01-21] MEDS: NON-FORMULARY MEDICATION (Sildenafil (Pulm.Hypertension) 20 mg tablet) 20 EACH PO ×2 (07:58→14:27)
[2024-01-21] MEDS: magnesium lactate 84 mg Tablet PO (07:58)
[2024-01-21] MEDS: multivitamin therapeutic Tablet 1 TAB PO (07:59)
[2024-01-21] MEDS: cholecalciferol (vitamin D3) 1,000 unit Tablet 2000 UNIT PO (07:59)
[2024-01-21] MEDS: lisinopril 20 mg Tablet PO (07:59)
[2024-01-21] MEDS: metoprolol tartrate 25 mg Tablet PO (07:59)
[2024-01-21] MEDS: apixaban 5 mg Tablet PO ×2 (07:59→20:54)
--- NOTE | 2024-01-21 08:32 | XRR_ITS ---
PROCEDURE INFORMATION: Exam: XR Chest Exam date and time: 01/21/2024 8:47 AM Age: 58 years old Clinical indication: Shortness of breath; Prior surgery; Surgery date: 6+ months; Surgery type: Jermaine drain; Additional info: SOB TECHNIQUE: Imaging protocol: Radiologic exam of the chest. Views: 1 view. COMPARISON: CR XR chest 1V portable [id number] 01/20/2024 3:30 PM FINDINGS: Lungs: Persistent bilateral lower lobe opacities, likely a combination of atelectasis and infection. Pleural spaces: Stable moderate left pleural effusion with drain in place. Trace right pleural effusion. Heart/Mediastinum: No cardiomegaly. Bones/joints: Unremarkable. XR/XR chest 1V portable [id number] IMPRESSION: No interval change.
[2024-01-21] MEDS: budesonide 0.5 mg/2 mL Neb INHALATION ×2 (08:50→20:39)
--- NOTE | 2024-01-21 12:11 | P.PN_ITS ---
Subjective 2 Subjective: -Clinically unchanged -Currently on 5 to 6 L supplemental oxyg en -Yesterday evening Pleurx catheter for r ecurrent hemorrhagic left pleural fluid placed and 1 L hemorrhagic fluid drained; -Her heparin was stopped and switched to Eliquis -Recommended to arrange for home health nurse and drain at least twice weekly, patient tells me that she does not want to be hospice yet; recommended consultation with palliative services physician if available -Other labs and imaging reviewed Medications: Reviewed: Yes Vitals/I&O/Wt Last Vital Signs Temp 98.0 F 01/21/24 11:37 Pulse 92 01/21/24 11:37 Resp 17 01/21/24 11:37 BP 102/69 01/21/24 11:37 Pulse Ox 93 01/21/24 11:37 O2 Del Method Nasal Cannula 01/21/24 11:37 O2 Flow Rate 8 01/21/24 08:50 FiO2 65 01/16/24 11:00 01/20/24 01/21/24 01/21/24 22:59 06:59 14:59 Intake Total 530 / 750 240 / 990 939.8 / 939.8 Output Total 300 / 300 200 / 500 Balance 230 / 450 40 / 490 939.8 / 939.8 Weight last 48 hrs Weight 146 lb Weight 142 lb 4.8 oz Weight 140 lb 3 oz Physical Exam 2 Narrative: General: alert, in mild respiratory distress HEENT: conj clear, EOMI, PERRL, mmm, Neck: supple, no meningismus Heme: no cervical LAP Respiratory: Inspection: No visible deformity of the chest wall Palpation: Trachea is mildly deviated to the right, bilateral symmetric expansion Percussion: Increased dullness left lower lung zone Auscultation: Reduced breath sounds left lower lung zone Cardiovascular: rrr, nl s1s2, no mrg Abdomen: soft, nt, nd, no r/g, bs+ Extremities: pulses +, no edema, no c/c : no CVA tenderness Skin: intact, no rash MSK: no back or neck pain Neurologic: grossly intact Urinary Catheter Management: Francois: Cath Placed During This Visit: yes Reason for Continuing Indwelling Catheter: Other Urinary Catheter Date of Insertion: 01/15/24 Urinary Catheter Time of Insertion: 22:33 Data 01/21/24 04:50 01/21/24 04:50 Other Labs: Radiology Impressions Thoracentesis Ultrasound 01/16/24 09:05 IMPRESSION: 1. LEFT thoracentesis yielding 1200 cc of fluid. Pleural fluid is dark red consistent with blood. 2. Chest radiograph to follow to evaluate for pneumothorax. 3. Pleural fluid specimen collected for analysis. Chest CTA 01/18/24 08:31 IMPRESSION: 1. Redemonstration of eccentric nonocclusive thrombus within the posterior aspect of the left main pulmonary artery unchanged. 2. 3.5 cm left hilar mass likely malignant in nature, unchanged. 3. Moderate ipsilateral left hilar and mediastinal lymphadenopathy likely metastatic in nature. 4. Large left pleural effusion with adjacent compressive atelectasis left lung, stable. 5. Chronic compression fractures T6 and T10 vertebral bodies unchanged. COMMENTS: The presence of pulmonary emphysema on CT is an independent risk factor for lung cancer. In the absence of a history or active diagnosis of lung cancer, it is recommended that this patient with emphysema be evaluated for enrollment in a low dose CT lung cancer screening program. Chest X-Ray 01/21/24 08:32 IMPRESSION: No interval change. Laboratory Results WBC 11.87 10^3/uL (3.29-11.43) H 01/21/24 04:50 RBC 4.40 10^6/uL (3.85-5.65) 01/21/24 04:50 Hgb 13.00 g/dL (11.27-16.99) 01/21/24 04:50 Hct 42.1 % (36-47) 01/21/24 04:50 MCV 95.7 fl (85-98) 01/21/24 04:50 MCH 29.5 pg (27-33) 01/21/24 04:50 MCHC 30.9 g/dL (30-55) 01/21/24 04:50 RDW 14.1 % (12.1-15.1) 01/21/24 04:50 Plt Count 286 10^3/cmm (157-399) 01/21/24 04:50 MPV 9.8 fL (7.4-10.4) 01/21/24 04:50 Neut % (Auto) 88.9 % 01/21/24 04:50 Lymph % (Auto) 1.3 % 01/21/24 04:50 [place] % (Auto) 5.3 % 01/21/24 04:50 Eos % (Auto) 0.1 % 01/21/24 04:50 Baso % (Auto) 0.5 % 01/21/24 04:50 Neut # (Auto) 10.56 10^3/uL (1.8-7.7) H 01/21/24 04:50 Lymph # (Auto) 0.2 10^3/uL (0.8-4.8) L 01/21/24 04:50 [place] # (Auto) 0.6 10^3/uL (0.2-0.9) 01/21/24 04:50 Eos # (Auto) 0.0 10^3/uL (0.0-0.8) 01/21/24 04:50 Baso # (Auto) 0.1 10^3/uL (0.0-0.1) 01/21/24 04:50 Nucleated RBC % (auto) 0.2 % 01/21/24 04:50 Nucleated RBCs # 0.0 /100WBC 01/21/24 04:50 PT 14.80 SECONDS (12.1-14.9) 01/16/24 11:58 INR 1.13 (0.8-1.2) 01/16/24 11:58 APTT 49.3 SECONDS (23.9-36.7) H 01/20/24 10:52 Specimen Type Arterial 01/16/24 04:57 Sample Site Brachial, right 01/16/24 04:57 ABG pH 7.41 (7.35-7.45) 01/16/24 04:57 ABG pCO2 50.6 mmHg (35-45) H 01/16/24 04:57 ABG pO2 73.7 mmHg (80.0-100.0) L 01/16/24 04:57 ABG PO2/FiO2 Ratio 0 01/15/24 20:15 ABG HCO3 32.0 mmol/L (22-26) H 01/16/24 04:57 ABG O2 Saturation 95.4 01/16/24 04:57 ABG Base Excess 6.1 mmol/L (-2.0-2.0) H 01/16/24 04:57 Quirino Test N/a 01/16/24 04:57 A-a O2 Gradient 1.8 mmHg (5-10) L 01/16/24 04:57 Hematocrit 40.1 % (37-47) 01/16/24 04:57 Hgb O2 Saturation 93.8 % (95-100) L 01/16/24 04:57 Carboxyhemoglobin 1.4 %THgb (0.4-20.1) 01/16/24 04:57 Methemoglobin 0.2 % (0.4-1.5) L 01/16/24 04:57 Total Hemoglobin 13.1 g/dL (12-16) 01/16/24 04:57 Sodium 140.0 mmol/L (131-143) 01/16/24 04:57 Potassium 3.7 mmol/L (3.5-5.0) 01/16/24 04:57 Glucose 152.0 mg/dL (70-115) H 01/16/24 04:57 Ionized Calcium 1.1 mmol/L (1.1-1.4) 01/16/24 04:57 O2 Delivery Device Nc 01/16/24 04:57 O2 Liters/Min 10.0 % 01/16/24 04:57 FiO2 65.0 % 01/15/24 20:15 Partner Cco ID [email or web address] 01/16/24 04:57 Sodium 140 mmol/L (136-145) 01/21/24 04:50 Potassium 4.1 mmol/L (3.5-5.1) 01/21/24 04:50 Chloride 103 mmol/L (98-107) 01/21/24 04:50 Carbon Dioxide 23 mmol/L (22-29) 01/21/24 04:50 Anion Gap 18.1 (5-19) 01/21/24 04:50 BUN 24 mg/dL (8-23) H 01/21/24 04:50 Creatinine 0.9 mg/dL (0.5-0.9) 01/21/24 04:50 GFR Calculation 63.9 mL/min (90-130) L 01/21/24 04:50 Glucose 97 mg/dL (65-115) 01/21/24 04:50 Estimat Average Glucose 100 01/16/24 04:27 Hemoglobin A1c 5.1 % (4.0-6.0) 01/16/24 04:27 Calculated Osmolality 294 mOsm/kg (285-295) 01/21/24 04:50 Lactic Acid 1.0 mmol/L (0.5-2.2) 01/19/24 14:19 Calcium 8.4 mg/dL (8.5-10.5) L 01/21/24 04:50 Phosphorus 4.3 mg/dL (2.5-4.5) 01/16/24 04:27 Magnesium 2.2 mg/dL (1.7-2.3) 01/16/24 04:27 Iron 42 ug/dL (37-145) 01/15/24 18:40 TIBC 242 mcg/dl 01/15/24 18:40 % Saturation 17.3 % (20-50) L 01/15/24 18:40 Unsat Iron Binding 200 ug/dL (112-347) 01/15/24 18:40 Total Bilirubin 0.3 mg/dL (0.15-1.2) 01/16/24 04:27 AST 18 U/L (0-32) 01/16/24 04:27 ALT 13 U/L (0-33) 01/16/24 04:27 Alkaline Phosphatase 70 U/L (35-105) 01/16/24 04:27 Lactate Dehydrogenase 324 U/L (135-214) H 01/17/24 07:46 Troponin T Baseline 23 ng/L (0-10) H 01/15/24 16:40 Troponin T 120 Minute 6.00 ng/L (0-10) 01/15/24 18:39 Delta Troponin T -17.00 ABS# (0-10) L 01/15/24 18:39 Troponin T Hi Sens 6Hr 18.59 ng/L (0-10) H 01/15/24 22:47 Troponin T Hi Sens 6Hr Delta -4.41 ng/L (0-12) L 01/15/24 22:47 C-Reactive Protein 58.0 mg/L (0.0-4.9) H 01/20/24 05:00 NT-Pro-B Natriuret Pep 933 pg/mL (0-125) H 01/20/24 05:00 Total Protein 6.2 g/dL (6.6-8.7) L 01/16/24 04:27 Albumin 3.0 g/dL (3.5-5.2) L 01/16/24 04:27 Globulin 3.2 g/dL (1.3-4.6) 01/16/24 04:27 Triglycerides 81 mg/dL (0-150) 01/16/24 04:27 Cholesterol 176 mg/dL (0-200) 01/16/24 04:27 LDL Cholesterol, Calc 103 mg/dL (50-129) 01/16/24 04:27 HDL Cholesterol 57 mg/dL (60-100) L 01/16/24 04:27 LDL/HDL Ratio 1.81 RATIO (0.00-3.22) 01/16/24 04:27 Cholesterol/HDL Ratio 3.09 mg/dL (0.0-4.40) 01/16/24 04:27 Vitamin B12 589 pg/mL (232-1245) 01/15/24 18:40 Folate > 20.0 ng/mL (4.8-37.3) 01/16/24 04:27 Procalcitonin 0.05 ng/mL (0-0.5) 01/20/24 05:00 TSH 0.59 uIU/mL (0.27-4.20) 01/15/24 18:40 Urine Color Yellow (Yellow) 01/16/24 19:15 Urine Appearance Clear (CLEAR) 01/16/24 19:15 Urine pH 5 (5-7) 01/16/24 19:15 Ur Specific Chase 1.005 (1.005-1.030) 01/16/24 19:15 Urine Protein Neg (Negative) 01/16/24 19:15 Urine Glucose (UA) Norm (Normal) 01/16/24 19:15 Urine Ketones Negative (Negative) 01/16/24 19:15 Urine Blood Neg (Negative) 01/16/24 19:15 Urine Nitrate Negative (Negative) 01/16/24 19:15 Urine Bilirubin Neg (Negative) 01/16/24 19:15 Urine Urobilinogen Norm mg/dL (Negative) 01/16/24 19:15 Ur Leukocyte Esterase 1+ (Negative) H 01/16/24 19:15 Urine RBC 0-4 /hpf (0-2) H 01/16/24 19:15 Urine WBC 21-50 /hpf (0-5) 01/16/24 19:15 Ur Squamous Epith Cells None /hpf (0-5) 01/16/24 19:15 Uric Acid Crystals 0-4 /hpf 01/16/24 19:15 Amorphous Sediment Not Reportable 01/16/24 19:15 Urine Bacteria Trace /hpf (NONE) 01/16/24 19:15 Fluid Color Red 01/16/24 14:00 Fluid Appearance Cloudy 01/16/24 14:00 Fluid WBC 459 /uL 01/16/24 14:00 Fluid RBC 92.000 10^3/uL 01/16/24 14:00 Fluid Hematocrit 1.0 % 01/16/24 14:00 Fld Polynuclear WBCs # 0.092 01/16/24 14:00 Fld Polynuclear WBCs % 20.100 % 01/16/24 14:00 Fl Mononucl WBCs #(Auto) 0.367 01/16/24 14:00 Fl Mononuclear % Auto 79.900 % 01/16/24 14:00 Fld Crystal Laterality Left lower 01/16/24 14:00 Fluid Albumin 2.1 g/dL 01/16/24 14:00 Fluid Creatinine 1.0 (0.5-0.9) H 01/16/24 14:00 Pleural pH 9.00 (6.5-7.5) H 01/16/24 14:00 Pleural Total Protein 3.4 g/dL 01/16/24 14:00 Pleural LDH 488 U/L 01/16/24 14:00 Pleural Glucose 133.0 mg/dL 01/16/24 14:00 Pleural Triglycerides 28 mg/dL 01/16/24 14:00 Vancomycin Trough 22.0 ug/mL (10-15) H 01/17/24 07:46 C. difficile (PCR) Negative (Negative) 01/19/24 11:43 MRSA (PCR) Not detected (NOT DETECTED) 01/16/24 19:18 Micro: Microbiology 01/15/24 22:47 Blood Culture - Final Blood NO GROWTH AFTER 5 DAYS 01/15/24 21:10 Blood Culture - Final Blood NO GROWTH AFTER 5 DAYS A&P Assessment and plan (1) Pulmonary hypertension: (2) Recurrent left pleural effusion: (3) Goals of care, counseling/discussion: (4) Lung cancer: (5) Acute and chronic respiratory failure ([id number]): (6) Pulmonary embolism: (7) Pulmonary hypertension: Plan # LLL nodule-s/p SBRT August 2023 # Recurrent hemorrhagic left pleural effusion-cytology 01/07/2024-suspicious for malignancy; insufficient material # CTA with ipsilateral hilar/mediastinal lymphadenopathy 3.5 cm hilar mass- appears metastatic lesion -She is very high risk for bronchoscopy and biopsies-given her significant FiO2 requirements as well as underlying bullous emphysema and pulmonary hypertension. She understands the risks and refuses biopsies. -01/07/2024-s/p first thoracentesis 1500 cc hemorrhagic fluid 01/07/2024-cytology suspicious for malignancy; insufficient material -01/15/2024-s/p second thoracentesis 1200 cc hemorrhagic fluid-cytology still pending -01/20/2024-inserted indwelling left side Pleurx catheter for recurrent hemorrhagic left pleural fluid placed and 1 L hemorrhagic fluid drained; -Recommended to arrange for home health nurse and drain at least twice weekly, -Clinically unchanged but she is at baseline 5 to 6 L supplemental oxygen # Goals of care discussion -I discussed frankly with patient she has high likelihood of metastatic lung cancer with metastatic pleural effusion-she is still in denial of malignancy. Even if it turns out to be malignancy-; she understands that she is not a surgical candidate given her significant bullous emphysema, poor lung function, probable advance stage, although she is still in denial of malignancy diagnosis. Even if it turns out to be malignancy-she does not want chemotherapy or radiation. -Given her overall prognosis-with underlying bullous emphysema with significantly high FiO2 requirement as outpatient (up to 6 to 8 L at rest and 10 to 15 L on ambulation ); underlying pulmonary hypertension; and possible metastatic malignancy-recommended hospice -Patient tells me that she does not want to be hospice yet; recommended consultation with palliative services physician if available # Acute on chronic hypoxic respiratory failure-and inpatient with significant pulmonary hypertension/suspected lung malignancy/recurrent left pleural effusion/significant bullous emphysema/pulmonary embolism -Currently her FiO2 requirement down to 5-6 L. This is her baseline and she requires up to 15 L on exertion as outpatient. -First week of January 2024 CTA showed left pulmonary embolism for which she was on Eliquis-during this admission she was switched to heparin drip-in anticipation for Pleurx catheter; now that Jermaine drain was placed-heparin stopped and started on Eliquis Attestations 2 Medical Necessity Statement*: Awaiting social service director evaluation for home health arrangements Time Spent in Patient Care: Greater than 35 minutes (>than 50% of time spent in counselling and/or direct pt care on unit) . Coding Level of Care Code Acute Code for Chg Fwd Diagnoses Pulmonary hypertension I27.20 Recurrent left pleural effusion J90 Goals of care, counseling/discussion Z71.89 Lung cancer C34.90 Acute and chronic respiratory failure ([id number]) J96.20 Pulmonary embolism I26.99 Time Spent (min) 37
--- NOTE | 2024-01-21 12:56 | PC.NURSE ---
Right chest incision in wound assessment documented on wrong pt.
--- NOTE | 2024-01-21 13:14 | P.PN_ITS ---
Subjective 2 Subjective: Patient was seen this morning, she is status post Pleurx drain placement, does complain of a lot of pain in that location, does report persistent shortness of breath, she does report an episode of hemoptysis this morning, scant hemoptysis, she has not had any since then, no fevers, no chills, we also had a discussion about hospice, she is more inclined to hospice however she is not ready to fully agree to it, she feels that now with the Pleurx catheter in place, and her lung can be drained, she will have more time to make her decision Vitals/I&O/Wt Last Vital Signs Temp 98.0 F 01/21/24 11:37 Pulse 92 01/21/24 11:37 Resp 17 01/21/24 11:37 BP 102/69 01/21/24 11:37 Pulse Ox 93 01/21/24 11:37 O2 Del Method Nasal Cannula 01/21/24 11:37 O2 Flow Rate 8 01/21/24 08:50 FiO2 65 01/16/24 11:00 01/20/24 01/21/24 01/21/24 22:59 06:59 14:59 Intake Total 530 / 750 240 / 990 1059.8 / 1059.8 Output Total 300 / 300 200 / 500 Balance 230 / 450 40 / 490 1059.8 / 1059.8 Weight last 48 hrs Weight 68.606 kg Weight 66.224 kg Weight 64.546 kg Weight 63.588 kg Physical Exam 2 Const: COMMON NORMALS: no acute distress and patient oriented x3 Resp: COMMON NORMALS: normal respiratory effort, No retractions and No use of accessory muscles OTHER: Decreased breath sounds left lung base Cardio: COMMON NORMALS: regular rate, regular rhythm, S1 normal heart sound present and S2 normal heart sound present RATE: regular rate RHYTHM: r egular rhythm HEART SOUNDS: S1 normal heart sound present and S2 normal heart sound present GI: COMMON NORMALS: Normal to inspection, nondistended, normoactive bowel sounds present and non-tender Extremity: COMMON NORMALS: no pedal edema Neuro: COMMON NORMALS: patient oriented x3 Psych: COMMON NORMALS: mental status grossly normal Urinary Catheter Management: Francois: Cath Placed During This Visit: yes Reason for Continuing Indwelling Catheter: Other Urinary Catheter Date of Insertion: 01/15/24 Urinary Catheter Time of Insertion: 22:33 Data 01/21/24 04:50 01/21/24 04:50 Micro: Microbiology 01/15/24 22:47 Blood Culture - Final Blood NO GROWTH AFTER 5 DAYS 01/15/24 21:10 Blood Culture - Final Blood NO GROWTH AFTER 5 DAYS A&P Assessment and plan (1) Pleural effusion: (2) Acute and chronic respiratory failure ([id number]): (3) Lung cancer: (4) Pulmonary embolism: (5) Pulmonary hypertension: (6) Hemoptysis: Plan 58-year-old with severe pulmonary hypertension, recently diagnosed pulmonary embolism, left pleural effusion for which she underwent thoracentesis recently. Cytology showing atypical cells. Previously known to have an enlarging left lower lobe mass which was PET avid, unable to undergo biopsy due to severe pulmonary hypertension and risk of respiratory failure. Recommended to undergo presumptive radiation therapy in late 2022, however patient had declined this intervention. Presents after recent discharge today with increasing shortness of breath. Typically at baseline she uses 5 L/min supplemental O2. Today she was found to be saturating 70% on the same, needed to be on nonrebreather at 12 L/min via EMS and then now on BiPAP., Now back on heated high flow ABG shows acute on chronic hypoxic respiratory failure and chronic hypercapnic failure. X-ray shows worsening left-sided pleural effusion. Patient's current respiratory failure is likely a combination of reaccumulation of pleural fluid, COPD exacerbation and pulmonary hypertension. Acute hypoxic respiratory failure secondary to COPD, pleural effusion, possible pneumonia With evidence of hemorrhagic pleural effusion, culture so far negative, -1.2 L of fluid, exudative pleural effusion by lights criteria Plan: Moved to MedSurg BiPAP as needed during the day for shortness of breath, currently on 7 L, uses between 5 to 10 L at home Start scheduled nebulization with budesonide and DuoNeb. De-escalate to prednisone 40 mg daily Status post Pleurx catheter placement Continue Eliquis Pleural studies no growth, de-escalate antibiotics to Augmentin Continue sildenafil for pulmonary hypertension at home dosing Hold off on Lasix therapy CT angiogram of the chest CT/CT angio chest 08158 IMPRESSION: 1. Redemonstration of eccentric nonocclusive thrombus within the posterior aspect of the left main pulmonary artery unchanged. 2. 3.5 cm left hilar mass likely malignant in nature, unchanged. 3. Moderate ipsilateral left hilar and mediastinal lymphadenopathy likely metastatic in nature. 4. Large left pleural effusion with adjacent compressive atelectasis left lung, stable. 5. Chronic compression fractures T6 and T10 vertebral bodies unchanged. Continue other home medications including levothyroxine, metoprolol DNR/DNI DVT prophylaxis: Eliquis PUD prophylaxis: Protonix 40 mg daily Plan for today given her episode of hemoptysis, will monitor for another 24 hours, DC Francois catheter continue antibiotics, recheck hemoglobin this afternoon Attestations 2 Medical Necessity Statement*: Patient requires hospitalization for acute respiratory failure secondary to hemorrhagic pleural effusion, status post Pleurx drain catheter placement, now with hemoptysis requiring inpatient monitoring Diagnoses Pleural effusion J90 Acute and chronic respiratory failure ([id number]) J96.20 Lung cancer C34.90 Pulmonary embolism I26.99 Pulmonary hypertension I27.20 Hemoptysis R04.2
[2024-01-21 13:20] LABS: Amylase, Pleural Fluid 12 U/L
[2024-01-21] MEDS: ipratropium-albuterol 3 mL Neb INHALATION (14:26)
[2024-01-21] MEDS: acetaminophen 325 mg Tablet 650 MG PO (14:27)
--- NOTE | 2024-01-21 16:29 | PC.OT ---
OT TREATMENT ATTEMPTED IN P.M. PATIENT SLEEPING SOUNDLY
[2024-01-21] MEDS: morphine 4 mg/mL SDV 1 mL 2 MG IVP (20:54)
[2024-01-21] MEDS: pantoprazole 40 mg SDV IVP (20:54)
[2024-01-22] VITALS (14 sets, daily range): BP systolic 101–128; BP diastolic 66–84; PULSE 85–117; RESP 15–18; TEMP 36.3–36.8; O2SAT 90–98
[2024-01-22] MEDS: albuterol 2.5 mg/3 mL Neb INHALATION ×4 (01:57→21:44)
--- NOTE | 2024-01-22 04:18 | PC.NURSE ---
Patient only voided 50 ml of urine since wells removal approximately 13 hours ago. Patient asked to attempt to void in bedside commode. Patient states I don't have to go yet. I stated it's not good to go 13 hours without peeing, we need to try to go. Patient states I haven't been drinking much water, so I'm not worried about it. Bladder scan completed and shows 247 ml. Patient educated that she has urine in her bladder. Patient states well it's not very much. Patient says doesn't want to get up because she is cold and because she always has diarrhea with it when she pees. Patient educated that it is not healthy to hold urine as it can cause urinary tract infections and other complications. Patient states I've been doing it my whole life. I'm not getting up yet, I'll get up and go when I ready.
[2024-01-22] MEDS: levothyroxine 150 mcg Tablet PO (06:11)
[2024-01-22] MEDS: lisinopril 20 mg Tablet PO (08:08)
[2024-01-22] MEDS: metoprolol tartrate 25 mg Tablet PO (08:08)
[2024-01-22] MEDS: budesonide 0.5 mg/2 mL Neb INHALATION (08:53)
[2024-01-22] MEDS: amoxicillin-clav 875-125 mg Tablet 1 TAB PO ×2 (09:29→17:49)
[2024-01-22] MEDS: cholecalciferol (vitamin D3) 1,000 unit Tablet 2000 UNIT PO (09:29)
[2024-01-22] MEDS: magnesium lactate 84 mg Tablet PO (09:30)
[2024-01-22] MEDS: apixaban 5 mg Tablet PO ×2 (09:30→20:36)
[2024-01-22] MEDS: predniSONE 20 mg Tablet 40 MG PO (09:30)
[2024-01-22] MEDS: multivitamin therapeutic Tablet 1 TAB PO (09:30)
[2024-01-22 11:54] LABS: Basophils # 0.1 10^3/uL (0.0-0.1); Basophils % 0.4 %; Eosinophils % 0.2 %; Hematocrit 41.4 % (36-47); Lymphocytes # 0.2 10^3/uL (0.8-4.8); Lymphocytes % 1.5 %; Mean Corpuscular HGB Conc 31.4 g/dL (30-55); Mean Corpuscular Hemoglobin 29.4 pg (27-33); Mean Corpuscular Volume 93.7 fl (85-98); Mean Platelet Volume 10.2 fL (7.4-10.4); Monocytes # 0.8 10^3/uL (0.2-0.9); Monocytes % 6.3 %; Neutrophils # 10.64 10^3/uL (1.8-7.7); Neutrophils % 85.9 %; Nucleated Red Blood Cells % 0 %; Platelet Count 285 10^3/cmm (157-399); Red Blood Count 4.42 10^6/uL (3.85-5.65); Red Cell Distribution Width 14.4 % (12.1-15.1); White Blood Count 12.38 10^3/uL (3.29-11.43)
[2024-01-22 12:09] LABS: Slide Review Slide Review Perform
[2024-01-22 12:42] LABS: Anion Gap 17.4 (5-19); Blood Urea Nitrogen 21 mg/dL (8-23); Calcium 8.2 mg/dL (8.5-10.5); Carbon Dioxide 25 mmol/L (22-29); Chloride 102 mmol/L (98-107); Creatinine Clr Calc Pharmacy 72.7723; Glomerular Filtration Rate 73.2 mL/min (90-130); Glucose 104 mg/dL (65-115); Osmolality Calculated 293 mOsm/kg (285-295); Potassium 4.4 mmol/L (3.5-5.1); Sodium 140 mmol/L (136-145)
--- NOTE | 2024-01-22 13:03 | PC.NURSE ---
Dr. Moyer gave verbal orders to cancel pulmacort and start patient on nystatin 1000 QID
--- NOTE | 2024-01-22 13:09 | P.PN_ITS ---
Subjective 2 Subjective: -Patient seen at bedside -She desaturated significantly while rosaline en to restroom and required 10 L supplemental oxygen. Her oxygen requirement came down to 7 L when she is brought back to Medications: Reviewed: Yes Vitals/I&O/Wt Last Vital Signs Temp 97.7 F 01/22/24 12:17 Pulse 110 H 01/22/24 12:17 Resp 17 01/22/24 12:17 BP 101/66 01/22/24 12:17 Pulse Ox 95 01/22/24 12:17 O2 Del Method Nasal Cannula 01/22/24 12:17 O2 Flow Rate 6 01/22/24 08:53 FiO2 65 01/16/24 11:00 01/21/24 01/22/24 01/22/24 22:59 06:59 14:59 Intake Total 240 / 1299.8 960 / 960 Output Total 1000 / 1000 50 / 1050 300 / 300 Balance -760 / 299.8 -50 / 249.8 660 / 660 Weight last 48 hrs Weight 151 lb 4 oz Weight 151 lb 4 oz Weight 146 lb Physical Exam 2 Narrative: General: alert, in mild respiratory distress HEENT: conj clear, EOMI, PERRL, mmm, Neck: supple, no meningismus Heme: no cervical LAP Respiratory: Inspection: No visible deformity of the chest wall Palpation: Trachea is mildly deviated to the right, bilateral symmetric expansion Percussion: Increased dullness left lower lung zone Auscultation: Reduced breath sounds left lower lung zone Cardiovascular: rrr, nl s1s2, no mrg Abdomen: soft, nt, nd, no r/g, bs+ Extremities: pulses +, no edema, no c/c : no CVA tenderness Skin: intact, no rash MSK: no back or neck pain Neurologic: grossly intact Urinary Catheter Management: Francois: Cath Placed During This Visit: yes, but has since been removed by the nurse Reason for Continuing Indwelling Catheter: Decision to DC Catheter Urinary Catheter Date of Insertion: 01/15/24 Urinary Catheter Time of Insertion: 22:33 Date Urinary Catheter Removed: 01/21/24 Time Urinary Catheter Discontinued: 14:45 Data 01/22/24 11:37 01/22/24 11:37 A&P Assessment and plan (1) Pulmonary hypertension: (2) Recurrent left pleural effusion: (3) Goals of care, counseling/discussion: (4) Lung cancer: (5) Acute and chronic respiratory failure (spihk-xu-pnwbeji): (6) Pulmonary embolism: Plan # LLL nodule-s/p SBRT August 2023 # Recurrent hemorrhagic left pleural effusion-cytology 01/07/2024-suspicious for malignancy; insufficient material # CTA with ipsilateral hilar/mediastinal lymphadenopathy 3.5 cm hilar mass- appears metastatic lesion -She is very high risk for bronchoscopy and biopsies-given her significant FiO2 requirements as well as underlying bullous emphysema and pulmonary hypertension. She understands the risks and refuses biopsies. -01/07/2024-s/p first thoracentesis 1500 cc hemorrhagic fluid 01/07/2024-cytology suspicious for malignancy; insufficient material -01/15/2024-s/p second thoracentesis 1200 cc hemorrhagic fluid-cytology Rare atypical cells with prominent nucleoli highly suspicious for malignancy -01/20/2024-inserted indwelling left side Pleurx catheter for recurrent hemorrhagic left pleural fluid placed and 1 L hemorrhagic fluid drained; -Recommended to arrange for home health nurse and drain at least 3 times weekly, -Clinically unchanged but she is at baseline 5 to 6 L supplemental oxygen # Goals of care discussion -I discussed frankly with patient she has high likelihood of metastatic lung cancer with metastatic pleural effusion-she is still in denial of malignancy. Even if it turns out to be malignancy-; she understands that she is not a surgical candidate given her significant bullous emphysema, poor lung function, probable advance stage, although she is still in denial of malignancy diagnosis. Even if it turns out to be malignancy-she does not want chemotherapy or radiation. -Given her overall prognosis-with underlying bullous emphysema with significantly high FiO2 requirement as outpatient (up to 6 to 8 L at rest and 10 to 15 L on ambulation ); underlying pulmonary hypertension; and possible metastatic malignancy-recommended hospice -Patient tells me that she does not want to be hospice yet; recommended consultation with palliative services physician if available # Acute on chronic hypoxic respiratory failure-and inpatient with significant pulmonary hypertension/suspected lung malignancy/recurrent left pleural effusion/significant bullous emphysema/pulmonary embolism -Currently her FiO2 requirement down to 5-6 L. This is her baseline and she requires up to 15 L on exertion as outpatient. -First week of January 2024 CTA showed left pulmonary embolism for which she was on Eliquis-during this admission she was switched to heparin drip-in anticipation for Pleurx catheter; now that Jermaine drain was placed-heparin stopped and started on Eliquis Attestations 2 Medical Necessity Statement*: Awaiting licensed social worker evaluation for home health arrangements Time Spent in Patient Care: Greater than 35 minutes (>than 50% of time spent in counselling and/or direct pt care on unit) . Coding Level of Care Code Acute Code for Chg Fwd Diagnoses Pulmonary hypertension I27.20 Recurrent left pleural effusion J90 Goals of care, counseling/discussion Z71.89 Lung cancer C34.90 Acute and chronic respiratory failure ([id number]-[id number]) J96.20 Pulmonary embolism I26.99 Time Spent (min) 42
[2024-01-22] MEDS: [UNRECOGNIZED DRUG - OTHER] 500 EACH PO (13:13)
[2024-01-22] MEDS: nystatin 100,000 unit/mL UDC 5 mL 100000 UNIT PO ×3 (13:13→20:36)
--- NOTE | 2024-01-22 15:12 | PC.SOCIAL ---
IMM updated IMM dated and copy given to patient and placed in chart
[2024-01-22] MEDS: NON-FORMULARY MEDICATION (Sildenafil (Pulm.Hypertension) 20 mg tablet) 20 EACH PO ×2 (15:54→20:36)
[2024-01-22] MEDS: acetaminophen 325 mg Tablet 650 MG PO (15:54)
--- NOTE | 2024-01-22 16:10 | PC.OT ---
OT TO D/C PATIENT FROM [facility] DUE TO GOALS MET WITH THE EXCEPTION OF ENDURANCE GOAL. PATIENT IS IN AGREEMENT.
--- NOTE | 2024-01-22 17:14 | P.PN_ITS ---
Subjective 2 Subjective: Patient was seen this morning, she tells me that when she got up to the side of the bed this morning, she her O2 sats dropped, with minimal exertion, during my examination, O2 sats were in the low 80s, on 5 L, turned up to 8 L, remained 8889 turn to 10 L, she recovered to 95%, during my examination, her shortness of breath improved she was feeling better I turned her oxygen level down to 8 L, with plans on titrating downwards, she tells me that whenever she exerts herself her oxygen requirements increased, but it seems as if her recovery time has improved, Vitals/I&O/Wt Last Vital Signs Temp 97.3 F L 01/22/24 16:30 Pulse 117 H 01/22/24 16:30 Resp 18 01/22/24 16:30 BP 111/74 01/22/24 16:30 Pulse Ox 91 01/22/24 16:30 O2 Del Method Nasal Cannula 01/22/24 16:30 O2 Flow Rate 7 01/22/24 15:14 FiO2 65 01/16/24 11:00 01/22/24 01/22/24 01/22/24 06:59 14:59 22:59 Intake Total 960 / 960 Output Total 50 / 1050 500 / 500 1100 / 1600 Balance -50 / 249.8 460 / 460 -1100 / -640 Weight last 48 hrs Weight 68.81 kg Weight 68.606 kg Weight 68.606 kg Weight 66.224 kg Physical Exam 2 Const: COMMON NORMALS: no acute distress and patient oriented x3 Resp: COMMON NORMALS: normal respiratory effort, No retractions and No use of accessory muscles OTHER: Decreased aeration left lung base Cardio: COMMON NORMALS: regular rate, regular rhythm, S1 normal heart sound present and S2 normal heart sound present RATE: regular rate RHYTHM: r egular rhythm HEART SOUNDS: S1 normal heart sound present and S2 normal heart sound present GI: COMMON NORMALS: Normal to inspection, nondistended, normoactive bowel sounds present and non-tender Extremity: COMMON NORMALS: no pedal edema Neuro: COMMON NORMALS: patient oriented x3 Psych: COMMON NORMALS: mental status grossly normal Urinary Catheter Management: Francois: Cath Placed During This Visit: yes, but has since been removed by the nurse Reason for Continuing Indwelling Catheter: Decision to DC Catheter Urinary Catheter Date of Insertion: 01/15/24 Urinary Catheter Time of Insertion: 22:33 Date Urinary Catheter Removed: 01/21/24 Time Urinary Catheter Discontinued: 14:45 Data 01/22/24 11:37 01/22/24 11:37 A&P Assessment and plan (1) Pleural effusion: (2) Acute and chronic respiratory failure ([id number]): (3) Lung cancer: (4) Pulmonary embolism: (5) Pulmonary hypertension: (6) Hemoptysis: Plan 58-year-old with severe pulmonary hypertension, recently diagnosed pulmonary embolism, left pleural effusion for which she underwent thoracentesis recently. Cytology showing atypical cells. Previously known to have an enlarging left lower lobe mass which was PET avid, unable to undergo biopsy due to severe pulmonary hypertension and risk of respiratory failure. Recommended to undergo presumptive radiation therapy in late 2022, however patient had declined this intervention. Presents after recent discharge today with increasing shortness of breath. Typically at baseline she uses 5 L/min supplemental O2. Today she was found to be saturating 70% on the same, needed to be on nonrebreather at 12 L/min via EMS and then now on BiPAP., Now back on heated high flow ABG shows acute on chronic hypoxic respiratory failure and chronic hypercapnic failure. X-ray shows worsening left-sided pleural effusion. Patient's current respiratory failure is likely a combination of reaccumulation of pleural fluid, COPD exacerbation and pulmonary hypertension. Acute hypoxic respiratory failure secondary to COPD, pleural effusion, possible pneumonia With evidence of hemorrhagic pleural effusion, culture so far negative, -1.2 L of fluid, exudative pleural effusion by lights criteria Plan: Moved to [facility] BiPAP as needed during the day for shortness of breath, currently on 8 L, uses between 5 to 10 L at home Start scheduled nebulization with budesonide and DuoNeb. De-escalate to prednisone 40 mg daily Status post Pleurx catheter placement Continue Eliquis Pleural studies no growth, de-escalate antibiotics to Augmentin Continue sildenafil for pulmonary hypertension at home dosing Hold off on Lasix therapy CT angiogram of the chest CT/CT angio chest [id number] IMPRESSION: 1. Redemonstration of eccentric nonocclusive thrombus within the posterior aspect of the left main pulmonary artery unchanged. 2. 3.5 cm left hilar mass likely malignant in nature, unchanged. 3. Moderate ipsilateral left hilar and mediastinal lymphadenopathy likely metastatic in nature. 4. Large left pleural effusion with adjacent compressive atelectasis left lung, stable. 5. Chronic compression fractures T6 and T10 vertebral bodies unchanged. Continue other home medications including levothyroxine, metoprolol DNR/DNI DVT prophylaxis: Eliquis PUD prophylaxis: Protonix 40 mg daily Plan for today continue PT OT, monitor oxygen requirements, Attestations 2 Medical Necessity Statement*: Patient requires hospitalization for acute hypoxic respiratory failure secondary to hemorrhagic pleural effusion, malignancy, Diagnoses Pleural effusion J90 Acute and chronic respiratory failure ([id number]) J96.20 Lung cancer C34.90 Pulmonary embolism I26.99 Pulmonary hypertension I27.20 Hemoptysis R04.2
[2024-01-22] MEDS: pantoprazole 40 mg SDV IVP (20:36)
[2024-01-23] VITALS (14 sets, daily range): BP systolic 102–127; BP diastolic 62–83; PULSE 92–115; RESP 15–19; TEMP 36.4–37; O2SAT 89–94
[2024-01-23] MEDS: albuterol 2.5 mg/3 mL Neb INHALATION ×3 (03:15→13:09)
[2024-01-23 05:18] LABS: Basophils # 0.1 10^3/uL (0.0-0.1); Basophils % 0.9 %; Eosinophils % 0.2 %; Hematocrit 45.2 % (36-47); Lymphocytes # 0.2 10^3/uL (0.8-4.8); Lymphocytes % 2.2 %; Mean Corpuscular HGB Conc 30.5 g/dL (30-55); Mean Corpuscular Hemoglobin 29.7 pg (27-33); Mean Corpuscular Volume 97.4 fl (85-98); Mean Platelet Volume 11.1 fL (7.4-10.4); Monocytes # 0.5 10^3/uL (0.2-0.9); Neutrophils % 85.7 %; Nucleated Red Blood Cells % 0 %; Platelet Count 211 10^3/cmm (157-399); Red Blood Count 4.64 10^6/uL (3.85-5.65); Red Cell Distribution Width 14.7 % (12.1-15.1); White Blood Count 10.74 10^3/uL (3.29-11.43)
[2024-01-23 05:47] LABS: Slide Review Slide Review Perform
[2024-01-23] MEDS: levothyroxine 150 mcg Tablet PO (06:14)
[2024-01-23 07:35] LABS: Blood Urea Nitrogen 19 mg/dL (8-23); Calcium 8.2 mg/dL (8.5-10.5); Carbon Dioxide 28 mmol/L (22-29); Chloride 105 mmol/L (98-107); Creatinine Clr Calc Pharmacy 82.1737; Glomerular Filtration Rate 85.4 mL/min (90-130); Glucose 90 mg/dL (65-115); Osmolality Calculated 294 mOsm/kg (285-295); Sodium 141 mmol/L (136-145)
[2024-01-23] MEDS: amoxicillin-clav 875-125 mg Tablet 1 TAB PO ×2 (08:39→17:51)
[2024-01-23] MEDS: predniSONE 20 mg Tablet 40 MG PO (08:39)
[2024-01-23] MEDS: cholecalciferol (vitamin D3) 1,000 unit Tablet 2000 UNIT PO (08:39)
[2024-01-23] MEDS: NON-FORMULARY MEDICATION (Sildenafil (Pulm.Hypertension) 20 mg tablet) 20 EACH PO ×3 (08:40→21:59)
[2024-01-23] MEDS: multivitamin therapeutic Tablet 1 TAB PO (08:40)
[2024-01-23] MEDS: [UNRECOGNIZED DRUG - OTHER] 500 EACH PO (08:40)
[2024-01-23] MEDS: apixaban 5 mg Tablet PO ×2 (08:40→21:59)
[2024-01-23] MEDS: metoprolol tartrate 25 mg Tablet PO (08:41)
[2024-01-23] MEDS: lisinopril 20 mg Tablet PO (08:41)
[2024-01-23] MEDS: nystatin 100,000 unit/mL UDC 5 mL 100000 UNIT PO ×4 (08:42→21:59)
[2024-01-23] MEDS: magnesium lactate 84 mg Tablet PO (08:44)
[2024-01-23] MEDS: acetaminophen 325 mg Tablet 650 MG PO ×2 (08:44→21:58)
--- NOTE | 2024-01-23 13:41 | P.PN_ITS ---
Subjective 2 Subjective: Patient was seen this morning, she does tell me that when she get up her oxygen requirements do increase, but she feels like she more quickly recovers, currently 6 L, O2 sats in the mid 90s, Vitals/I&O/Wt Last Vital Signs Temp 97.7 F 01/23/24 12:14 Pulse 93 01/23/24 13:14 Resp 16 01/23/24 13:11 BP 109/78 01/23/24 12:14 Pulse Ox 94 01/23/24 13:11 O2 Del Method Nasal Cannula 01/23/24 13:11 O2 Flow Rate 6 01/23/24 13:11 FiO2 65 01/16/24 11:00 01/22/24 01/23/24 01/23/24 22:59 06:59 14:59 Intake Total 930 / 1890 250 / 2140 960 / 960 Output Total 1100 / 1600 300 / 300 Balance -170 / 290 250 / 540 660 / 660 Weight last 48 hrs Weight 66.95 kg Weight 66.763 kg Weight 68.81 kg Weight 68.606 kg Physical Exam 2 Const: COMMON NORMALS: no acute distress and patient oriented x3 Resp: COMMON NORMALS: normal respiratory effort, No retractions, No use of accessory muscles and clear to auscultation bilaterally AUSCULTATION: clear to auscultation bilaterally OTHER: Pleurx catheter left chest wall Cardio: COMMON NORMALS: regular rate, regular rhythm, S1 normal heart sound present and S2 normal heart sound present RATE: regular rate RHYTHM: r egular rhythm HEART SOUNDS: S1 normal heart sound present and S2 normal heart sound present GI: COMMON NORMALS: Normal to inspection, nondistended, normoactive bowel sounds present and non-tender Extremity: COMMON NORMALS: no pedal edema Neuro: COMMON NORMALS: patient oriented x3 Psych: COMMON NORMALS: mental status grossly normal Urinary Catheter Management: Francois: Cath Placed During This Visit: yes, but has since been removed by the nurse Reason for Continuing Indwelling Catheter: Decision to DC Catheter Urinary Catheter Date of Insertion: 01/15/24 Urinary Catheter Time of Insertion: 22:33 Date Urinary Catheter Removed: 01/21/24 Time Urinary Catheter Discontinued: 14:45 Data 01/23/24 04:28 01/23/24 06:50 A&P Assessment and plan (1) Pleural effusion: (2) Acute and chronic respiratory failure ([id number]): (3) Lung cancer: (4) Pulmonary embolism: (5) Pulmonary hypertension: (6) Hemoptysis: Plan 58-year-old with severe pulmonary hypertension, recently diagnosed pulmonary embolism, left pleural effusion for which she underwent thoracentesis recently. Cytology showing atypical cells. Previously known to have an enlarging left lower lobe mass which was PET avid, unable to undergo biopsy due to severe pulmonary hypertension and risk of respiratory failure. Recommended to undergo presumptive radiation therapy in late 2022, however patient had declined this intervention. Presents after recent discharge today with increasing shortness of breath. Typically at baseline she uses 5 L/min supplemental O2. Today she was found to be saturating 70% on the same, needed to be on nonrebreather at 12 L/min via EMS and then now on BiPAP., Now back on heated high flow ABG shows acute on chronic hypoxic respiratory failure and chronic hypercapnic failure. X-ray shows worsening left-sided pleural effusion. Patient's current respiratory failure is likely a combination of reaccumulation of pleural fluid, COPD exacerbation and pulmonary hypertension. Acute hypoxic respiratory failure secondary to COPD, pleural effusion, possible pneumonia With evidence of hemorrhagic pleural effusion, culture so far negative, -1.2 L of fluid, exudative pleural effusion by lights criteria Plan: Moved to MedSurg BiPAP as needed during the day for shortness of breath, currently on 8 L, uses between 5 to 10 L at home Start scheduled nebulization with budesonide and DuoNeb. De-escalate to prednisone 40 mg daily Status post Pleurx catheter placement Continue Eliquis Pleural studies no growth, de-escalate antibiotics to Augmentin Continue sildenafil for pulmonary hypertension at home dosing Hold off on Lasix therapy CT angiogram of the chest CT/CT angio chest [id number] IMPRESSION: 1. Redemonstration of eccentric nonocclusive thrombus within the posterior aspect of the left main pulmonary artery unchanged. 2. 3.5 cm left hilar mass likely malignant in nature, unchanged. 3. Moderate ipsilateral left hilar and mediastinal lymphadenopathy likely metastatic in nature. 4. Large left pleural effusion with adjacent compressive atelectasis left lung, stable. 5. Chronic compression fractures T6 and T10 vertebral bodies unchanged. Continue other home medications including levothyroxine, metoprolol DNR/DNI DVT prophylaxis: Eliquis PUD prophylaxis: Protonix 40 mg daily Plan for today continue PT OT, monitor oxygen requirements, Attestations 2 Medical Necessity Statement*: Patient requires hospitalization for hemorrhagic pleural effusion Diagnoses Pleural effusion J90 Acute and chronic respiratory failure ([id number]) J96.20 Lung cancer C34.90 Pulmonary embolism I26.99 Pulmonary hypertension I27.20 Hemoptysis R04.2
[2024-01-23] MEDS: ipratropium-albuterol 3 mL Neb INHALATION ×2 (20:25→20:26)
[2024-01-23] MEDS: pantoprazole 40 mg SDV IVP (21:59)
[2024-01-24] VITALS (18 sets, daily range): BP systolic 88–120; BP diastolic 57–83; PULSE 76–122; RESP 15–22; TEMP 36.4–36.8; O2SAT 91–94
[2024-01-24] MEDS: albuterol 2.5 mg/3 mL Neb INHALATION ×4 (02:42→20:07)
[2024-01-24] MEDS: levothyroxine 150 mcg Tablet PO (06:48)
--- NOTE | 2024-01-24 09:01 | XR_ITS ---
WS: [id number] Exam: XR chest 1V portable [id number] Date/Time of Exam: 01/24/2024 9:28 AM Reason For Exam: FLUID Comparison 01/21/2024. Moderate increase in LEFT sided pleural effusion since previous study. There is infiltrate in the danyelle tilated LEFT lung. A drain is noted in the lower LEFT pleural cavity. The heart remains enlarged. Inc reasing RIGHT basal pleural effusion. Patchy infiltrates in the mid and lower RIGHT lung slightly imp roved. No pneumothorax. The mediastinum is normal in contour. Monitoring leads superimpose the chest. XR/XR chest 1V portable [id number] IMPRESSION: 1. Increasing left-sided pleural effusion with compressive atelectasis and/or i nfiltrate of the LEFT lower lobe. There is also infiltrate in the ventilated as pects of the upper LEFT lobe. 2. Slight increase in RIGHT basal pleural effusion. RIGHT pulmonary infiltrates minimally improved. 3. The heart remains enlarged and unchanged in size.
[2024-01-24] MEDS: amoxicillin-clav 875-125 mg Tablet 1 TAB PO ×2 (09:59→18:23)
[2024-01-24] MEDS: cholecalciferol (vitamin D3) 1,000 unit Tablet 2000 UNIT PO (09:59)
[2024-01-24] MEDS: multivitamin therapeutic Tablet 1 TAB PO (10:00)
[2024-01-24] MEDS: predniSONE 20 mg Tablet 40 MG PO (10:00)
[2024-01-24] MEDS: nystatin 100,000 unit/mL UDC 5 mL 100000 UNIT PO ×4 (10:00→21:03)
[2024-01-24] MEDS: magnesium lactate 84 mg Tablet PO (10:00)
[2024-01-24] MEDS: apixaban 5 mg Tablet PO ×2 (10:00→21:03)
[2024-01-24] MEDS: [UNRECOGNIZED DRUG - OTHER] 500 EACH PO (10:01)
[2024-01-24 12:18] LABS: Anion Gap 12.7 (5-19); Blood Urea Nitrogen 20 mg/dL (8-23); Calcium 8.4 mg/dL (8.5-10.5); Carbon Dioxide 26 mmol/L (22-29); Chloride 103 mmol/L (98-107); Creatinine Clr Calc Pharmacy 93.8167; Glucose 114 mg/dL (65-115); NT Pro B Type Natriuretic Pept 417 pg/mL (0-125); Osmolality Calculated 287 mOsm/kg (285-295); Potassium 4.7 mmol/L (3.5-5.1); Sodium 137 mmol/L (136-145)
--- NOTE | 2024-01-24 13:54 | P.PN_ITS ---
Subjective 2 Subjective: Patient was seen this morning, she tells me that she is having increased shortness of breath, she feels that her Pleurx catheter can be drained, no cough, no fevers Vitals/I&O/Wt Last Vital Signs Temp 98.0 F 01/24/24 10:51 Pulse 78 01/24/24 10:51 Resp 16 01/24/24 10:51 BP 108/78 01/24/24 13:21 Pulse Ox 91 01/24/24 10:51 O2 Del Method Nasal Cannula 01/24/24 10:51 O2 Flow Rate 8 01/24/24 08:12 FiO2 65 01/16/24 11:00 01/23/24 01/24/24 01/24/24 22:59 06:59 14:59 Intake Total 600 / 1560 240 / 1800 240 / 240 Output Total 100 / 400 450 / 450 Balance 600 / 1260 140 / 1400 -210 / -210 Weight last 48 hrs Weight 63.503 kg Weight 63.503 kg Weight 66.95 kg Weight 66.763 kg Weight 68.81 kg Physical Exam 2 Const: COMMON NORMALS: no acute distress and patient oriented x3 Resp: COMMON NORMALS: normal respiratory effort, No retractions and No use of accessory muscles OTHER: Wheezing in all lung philippe Cardio: COMMON NORMALS: regular rate, regular rhythm, S1 normal heart sound present and S2 normal heart sound present RATE: regular rate RHYTHM: r egular rhythm HEART SOUNDS: S1 normal heart sound present and S2 normal heart sound present GI: COMMON NORMALS: Normal to inspection, nondistended, normoactive bowel sounds present and non-tender Extremity: COMMON NORMALS: no pedal edema Neuro: COMMON NORMALS: patient oriented x3 Psych: COMMON NORMALS: mental status grossly normal Urinary Catheter Management: Francois: Cath Placed During This Visit: yes, but has since been removed by the nurse Reason for Continuing Indwelling Catheter: Decision to DC Catheter Urinary Catheter Date of Insertion: 01/15/24 Urinary Catheter Time of Insertion: 22:33 Date Urinary Catheter Removed: 01/21/24 Time Urinary Catheter Discontinued: 14:45 Data 01/23/24 04:28 01/24/24 11:36 A&P Assessment and plan (1) Pleural effusion: (2) Acute and chronic respiratory failure ([id number]): (3) Lung cancer: (4) Pulmonary embolism: (5) Pulmonary hypertension: (6) Hemoptysis: Plan Acute hypoxic respiratory failure secondary to COPD, hemorrhagic pleural effusion, possible pneumonia With evidence of hemorrhagic pleural effusion, culture so far negative, exudative pleural effusion by lights criteria -History of left lower lobe nodule, status post SBRT August 2023 ? History of bullous emphysema, pulmonary hypertension Plan: Moved to [facility] Currently on nasal cannula, currently on 6 L, uses between 5 to 10 L at home nebulization with budesonide and DuoNeb. prednisone 40 mg daily Status post Pleurx catheter placement, drained twice a week, will drain again today Continue Eliquis Pleural studies no growth, de-escalate antibiotics to Augmentin Continue sildenafil for pulmonary hypertension at home dosing CT angiogram of the chest CT/CT angio chest [id number] IMPRESSION: 1. Redemonstration of eccentric nonocclusive thrombus within the posterior aspect of the left main pulmonary artery unchanged. 2. 3.5 cm left hilar mass likely malignant in nature, unchanged. 3. Moderate ipsilateral left hilar and mediastinal lymphadenopathy likely metastatic in nature. 4. Large left pleural effusion with adjacent compressive atelectasis left lung, stable. 5. Chronic compression fractures T6 and T10 vertebral bodies unchanged. -CT shows ipsilateral hilar/mediastinal lymphadenopathy 3. 5 cm hilar mass, -01/07/2024 rare atypical cells with prominent however suspicious for malignancy -Goals of care discussion, patient is considering hospice however wants to pursue physical therapy, skilled nursing stay versus long-term care stay for rehab before deciding -1 dose IV Lasix today Continue other home medications including levothyroxine, metoprolol DNR/DNI DVT prophylaxis: Eliquis PUD prophylaxis: Protonix 40 mg daily Plan for today will drain Pleurx catheter 1 dose IV Lasix Attestations 2 Medical Necessity Statement*: Patient requires hospitalization for acute hypoxic respiratory failure, now with hemorrhagic pleural effusion, fluid overload Diagnoses Pleural effusion J90 Acute and chronic respiratory failure (bbefb-[id number]) J96.20 Lung cancer C34.90 Pulmonary embolism I26.99 Pulmonary hypertension I27.20 Hemoptysis R04.2
[2024-01-24] MEDS: acetaminophen 325 mg Tablet 650 MG PO (13:57)
[2024-01-24] MEDS: pantoprazole 40 mg SDV IVP (21:04)
[2024-01-25] VITALS (13 sets, daily range): BP systolic 92–115; BP diastolic 68–83; PULSE 101–129; RESP 14–20; TEMP 36.6–36.7; O2SAT 91–95
[2024-01-25] MEDS: albuterol 2.5 mg/3 mL Neb INHALATION ×4 (02:48→19:50)
[2024-01-25] MEDS: levothyroxine 150 mcg Tablet PO (06:07)
[2024-01-25] MEDS: NON-FORMULARY MEDICATION (Alendronate [Fosamax] 70 mg Tablet) 70 EACH PO (06:08)
[2024-01-25 06:09] LABS: Basophils # 0.1 10^3/uL (0.0-0.1); Basophils % 0.5 %; Eosinophils % 0.1 %; Hematocrit 42.6 % (36-47); Lymphocytes # 0.3 10^3/uL (0.8-4.8); Lymphocytes % 2.4 %; Mean Corpuscular HGB Conc 29.8 g/dL (30-55); Mean Corpuscular Hemoglobin 28.9 pg (27-33); Mean Corpuscular Volume 96.8 fl (85-98); Mean Platelet Volume 10.9 fL (7.4-10.4); Monocytes # 0.6 10^3/uL (0.2-0.9); Monocytes % 4.8 %; Neutrophils # 11.58 10^3/uL (1.8-7.7); Neutrophils % 87.2 %; Nucleated Red Blood Cells % 0 %; Platelet Count 238 10^3/cmm (157-399); Red Cell Distribution Width 14.8 % (12.1-15.1); White Blood Count 13.29 10^3/uL (3.29-11.43)
[2024-01-25 06:31] LABS: Blood Urea Nitrogen 18 mg/dL (8-23); Calcium 8.3 mg/dL (8.5-10.5); Carbon Dioxide 27 mmol/L (22-29); Chloride 103 mmol/L (98-107); Creatinine Clr Calc Pharmacy 82.2503; Glomerular Filtration Rate 85.4 mL/min (90-130); Glucose 98 mg/dL (65-115); Osmolality Calculated 290 mOsm/kg (285-295); Sodium 139 mmol/L (136-145)
[2024-01-25] MEDS: nystatin 100,000 unit/mL UDC 5 mL 100000 UNIT PO ×4 (08:34→20:16)
[2024-01-25] MEDS: multivitamin therapeutic Tablet 1 TAB PO (08:35)
[2024-01-25] MEDS: magnesium lactate 84 mg Tablet PO (08:35)
[2024-01-25] MEDS: apixaban 5 mg Tablet PO ×2 (08:36→20:16)
[2024-01-25] MEDS: cholecalciferol (vitamin D3) 1,000 unit Tablet 2000 UNIT PO (08:36)
[2024-01-25] MEDS: amoxicillin-clav 875-125 mg Tablet 1 TAB PO ×2 (08:36→17:52)
[2024-01-25] MEDS: metoprolol tartrate 25 mg Tablet PO (08:36)
[2024-01-25] MEDS: [UNRECOGNIZED DRUG - OTHER] 500 EACH PO (08:37)
[2024-01-25] MEDS: FUROsemide 10 mg/mL SDV 4mL 40 MG IVP (08:47)
[2024-01-25] MEDS: acetaminophen 325 mg Tablet 650 MG PO ×2 (08:47→20:18)
--- NOTE | 2024-01-25 12:33 | P.PN_ITS ---
Subjective 2 Subjective: patient was seen this morning, does report generalized weakness, no fever, has nonproductive cough Vitals/I&O/Wt Last Vital Signs Temp 98.0 F 01/25/24 08:00 Pulse 115 H 01/25/24 08:20 Resp 18 01/25/24 08:10 BP 107/73 01/25/24 08:00 Pulse Ox 91 01/25/24 08:10 O2 Del Method High Flow Nasal Cannula 01/25/24 08:10 O2 Flow Rate 6 01/25/24 08:10 FiO2 65 01/16/24 11:00 01/24/24 01/25/24 01/25/24 22:59 06:59 14:59 Intake Total 120 / 360 Output Total 250 / 250 Balance 120 / -90 -250 / -250 Weight last 48 hrs Weight 66.905 kg Weight 66.905 kg Weight 63.503 kg Weight 63.503 kg Physical Exam 2 Const: COMMON NORMALS: no acute distress and patient oriented x3 Resp: COMMON NORMALS: normal respiratory effort, No retractions and No use of accessory muscles AUSCULTATION: crackles Cardio: COMMON NORMALS: regular rate, regular rhythm, S1 normal heart sound present and S2 normal heart sound present RATE: regular rate RHYTHM: r egular rhythm HEART SOUNDS: S1 normal heart sound present and S2 normal heart sound present GI: COMMON NORMALS: Normal to inspection, nondistended, normoactive bowel sounds present and non-tender Extremity: NARRATIVE EXTREMITY EXAM: 1+ edema Neuro: COMMON NORMALS: patient oriented x3 Psych: COMMON NORMALS: mental status grossly normal Skin: NARRATIVE SKIN EXAM: bilateral temporal muscle wasting, fat pad loss under clavicae, ribs, thighs, arms Urinary Catheter Management: Francois: Cath Placed During This Visit: yes, but has since been removed by the nurse Reason for Continuing Indwelling Catheter: Decision to DC Catheter Urinary Catheter Date of Insertion: 01/15/24 Urinary Catheter Time of Insertion: 22:33 Date Urinary Catheter Removed: 01/21/24 Time Urinary Catheter Discontinued: 14:45 Data 01/25/24 05:43 01/25/24 05:43 A&P Assessment and plan (1) Pleural effusion: (2) Acute and chronic respiratory failure ([id number]): (3) Lung cancer: (4) Pulmonary embolism: (5) Pulmonary hypertension: (6) Hemoptysis: (7) Physical deconditioning: (8) Muscle wasting: (9) Protein calorie malnutrition: Plan Acute hypoxic respiratory failure secondary to COPD, hemorrhagic pleural effusion, possible pneumonia With evidence of hemorrhagic pleural effusion, culture so far negative, exudative pleural effusion by lights criteria -History of left lower lobe nodule, status post SBRT August 2023 ? History of bullous emphysema, pulmonary hypertension Plan: Moved to [facility] Currently on nasal cannula, currently on 6 L, uses between 5 to 10 L at home nebulization with budesonide and DuoNeb. prednisone 40 mg daily Status post Pleurx catheter placement, drained twice a week, will drain again today Continue Eliquis Pleural studies no growth, de-escalate antibiotics to Augmentin Continue sildenafil for pulmonary hypertension at home dosing CT angiogram of the chest CT/CT angio chest 21670 IMPRESSION: 1. Redemonstration of eccentric nonocclusive thrombus within the posterior aspect of the left main pulmonary artery unchanged. 2. 3.5 cm left hilar mass likely malignant in nature, unchanged. 3. Moderate ipsilateral left hilar and mediastinal lymphadenopathy likely metastatic in nature. 4. Large left pleural effusion with adjacent compressive atelectasis left lung, stable. 5. Chronic compression fractures T6 and T10 vertebral bodies unchanged. -CT shows ipsilateral hilar/mediastinal lymphadenopathy 3. 5 cm hilar mass, -01/07/2024 rare atypical cells with prominent however suspicious for malignancy -Goals of care discussion, patient is considering hospice however wants to pursue physical therapy, long-term stay versus long-term care stay for rehab before deciding -1 dose IV Lasix today Continue other home medications including levothyroxine, metoprolol physical deconditioning, protien calorie mlanutrition, muscle wasting -secondary to cancer, copd, respiratory failure -ptot -consult dietary -protein shakes DNR/DNI DVT prophylaxis: Eliquis PUD prophylaxis: Protonix 40 mg daily Plan for today 1 dose IV Lasix, start midodrine Attestations 2 Medical Necessity Statement*: patient requires hospitalization for hemmorhagic pleural effusion Diagnoses Pleural effusion J90 Acute and chronic respiratory failure ([id number]) J96.20 Lung cancer C34.90 Pulmonary embolism I26.99 Pulmonary hypertension I27.20 Hemoptysis R04.2 Physical deconditioning R53.81 Muscle wasting M62.50 Protein calorie malnutrition E46
[2024-01-25] MEDS: midodrine 5 mg TABLET PO ×2 (15:41→20:16)
[2024-01-25] MEDS: pantoprazole 40 mg SDV IVP (20:16)
[2024-01-26] VITALS (17 sets, daily range): BP systolic 100–118; BP diastolic 64–82; PULSE 88–124; RESP 16–22; TEMP 36.3–36.6; O2SAT 84–95
[2024-01-26] MEDS: albuterol 2.5 mg/3 mL Neb INHALATION ×4 (02:48→19:44)
[2024-01-26] MEDS: levothyroxine 150 mcg Tablet PO (05:30)
[2024-01-26 05:37] LABS: Basophils % 0.1 %; Eosinophils # 0.1 10^3/uL (0.0-0.8); Eosinophils % 0.4 %; Hematocrit 49.4 % (36-47); Lymphocytes # 0.4 10^3/uL (0.8-4.8); Lymphocytes % 2.9 %; Mean Corpuscular Hemoglobin 29.6 pg (27-33); Mean Corpuscular Volume 98.8 fl (85-98); Mean Platelet Volume 10.9 fL (7.4-10.4); Monocytes # 0.5 10^3/uL (0.2-0.9); Monocytes % 3.8 %; Neutrophils # 12.31 10^3/uL (1.8-7.7); Neutrophils % 87.4 %; Nucleated Red Blood Cells % 0 %; Platelet Count 248 10^3/cmm (157-399); White Blood Count 14.08 10^3/uL (3.29-11.43)
[2024-01-26 05:54] LABS: Anion Gap 15.7 (5-19); Blood Urea Nitrogen 22 mg/dL (8-23); Calcium 8.7 mg/dL (8.5-10.5); Carbon Dioxide 29 mmol/L (22-29); Chloride 101 mmol/L (98-107); Glomerular Filtration Rate 73.2 mL/min (90-130); Glucose 92 mg/dL (65-115); Osmolality Calculated 295 mOsm/kg (285-295); Potassium 4.7 mmol/L (3.5-5.1); Sodium 141 mmol/L (136-145)
[2024-01-26] MEDS: cholecalciferol (vitamin D3) 1,000 unit Tablet 2000 UNIT PO (08:33)
[2024-01-26] MEDS: midodrine 5 mg TABLET PO ×2 (08:33→10:26)
[2024-01-26] MEDS: amoxicillin-clav 875-125 mg Tablet 1 TAB PO ×2 (08:33→17:41)
[2024-01-26] MEDS: metoprolol tartrate 25 mg Tablet PO (08:33)
[2024-01-26] MEDS: multivitamin therapeutic Tablet 1 TAB PO (08:33)
[2024-01-26] MEDS: apixaban 5 mg Tablet PO ×2 (08:33→20:54)
[2024-01-26] MEDS: [UNRECOGNIZED DRUG - OTHER] 500 EACH PO (08:34)
[2024-01-26] MEDS: nystatin 100,000 unit/mL UDC 5 mL 100000 UNIT PO ×4 (08:34→20:54)
[2024-01-26] MEDS: magnesium lactate 84 mg Tablet PO (08:37)
[2024-01-26] MEDS: acetaminophen 325 mg Tablet 650 MG PO ×2 (08:41→17:41)
--- NOTE | 2024-01-26 11:23 | P.PN_ITS ---
Subjective 2 Subjective: Patient on 6 L supplemental oxygen Lying in bed-clinically unchanged - challenging to lower metoprolol dose as she becomes tachycardic, started on midodrine Rediscussed goals of care with the patient. it is difficult to place her in a penitentiary given her high oxygen requirements. does not want to go to LTAC;she understands her poor prognosis but still not ready for hospice; Medications: Reviewed: Yes Vitals/I&O/Wt Last Vital Signs Temp 97.9 F 01/26/24 08:28 Pulse 113 H 01/26/24 08:28 Resp 17 01/26/24 08:28 BP 118/82 01/26/24 08:28 Pulse Ox 91 01/26/24 08:28 O2 Del Method Nasal Cannula 01/26/24 08:28 O2 Flow Rate 6 01/26/24 08:17 FiO2 65 01/16/24 11:00 01/25/24 01/26/24 01/26/24 22:59 06:59 14:59 Intake Total 240 / 480 0 / 480 480 / 480 Output Total 450 / 700 Balance -210 / -220 0 / -220 480 / 480 Weight last 48 hrs Weight 142 lb 8 oz Weight 147 lb 8 oz Weight 147 lb 8 oz Physical Exam 2 Narrative: General: alert, in mild respiratory distress HEENT: conj clear, EOMI, PERRL, mmm, Neck: supple, no meningismus Heme: no cervical LAP Respiratory: Inspection: No visible deformity of the chest wall Palpation: Trachea is mildly deviated to the right, bilateral symmetric expansion Percussion: Increased dullness left lower lung zone Auscultation: Reduced breath sounds left lower lung zone Cardiovascular: rrr, nl s1s2, no mrg Abdomen: soft, nt, nd, no r/g, bs+ Extremities: pulses +, no edema, no c/c : no CVA tenderness Skin: intact, no rash MSK: no back or neck pain Neurologic: grossly intact Urinary Catheter Management: Francois: Cath Placed During This Visit: yes, but has since been removed by the nurse Reason for Continuing Indwelling Catheter: Decision to DC Catheter Urinary Catheter Date of Insertion: 01/15/24 Urinary Catheter Time of Insertion: 22:33 Date Urinary Catheter Removed: 01/21/24 Time Urinary Catheter Discontinued: 14:45 Data 01/26/24 05:03 01/26/24 05:03 Other Labs: Radiology Impressions Thoracentesis Ultrasound 01/16/24 09:05 IMPRESSION: 1. LEFT thoracentesis yielding 1200 cc of fluid. Pleural fluid is dark red consistent with blood. 2. Chest radiograph to follow to evaluate for pneumothorax. 3. Pleural fluid specimen collected for analysis. Chest CTA 01/18/24 08:31 IMPRESSION: 1. Redemonstration of eccentric nonocclusive thrombus within the posterior aspect of the left main pulmonary artery unchanged. 2. 3.5 cm left hilar mass likely malignant in nature, unchanged. 3. Moderate ipsilateral left hilar and mediastinal lymphadenopathy likely metastatic in nature. 4. Large left pleural effusion with adjacent compressive atelectasis left lung, stable. 5. Chronic compression fractures T6 and T10 vertebral bodies unchanged. COMMENTS: The presence of pulmonary emphysema on CT is an independent risk factor for lung cancer. In the absence of a history or active diagnosis of lung cancer, it is recommended that this patient with emphysema be evaluated for enrollment in a low dose CT lung cancer screening program. Chest X-Ray 01/24/24 09:01 IMPRESSION: 1. Increasing left-sided pleural effusion with compressive atelectasis and/or infiltrate of the LEFT lower lobe. There is also infiltrate in the ventilated aspects of the upper LEFT lobe. 2. Slight increase in RIGHT basal pleural effusion. RIGHT pulmonary infiltrates minimally improved. 3. The heart remains enlarged and unchanged in size. Laboratory Results WBC 14.08 10^3/uL (3.29-11.43) H 01/26/24 05:03 RBC 5.00 10^6/uL (3.85-5.65) 01/26/24 05:03 Hgb 14.80 g/dL (11.27-16.99) 01/26/24 05:03 Hct 49.4 % (36-47) H 01/26/24 05:03 MCV 98.8 fl (85-98) H 01/26/24 05:03 MCH 29.6 pg (27-33) 01/26/24 05:03 MCHC 30.0 g/dL (30-55) 01/26/24 05:03 RDW 15.0 % (12.1-15.1) 01/26/24 05:03 Plt Count 248 10^3/cmm (157-399) 01/26/24 05:03 MPV 10.9 fL (7.4-10.4) H 01/26/24 05:03 Neut % (Auto) 87.4 % 01/26/24 05:03 Lymph % (Auto) 2.9 % 01/26/24 05:03 [place] % (Auto) 3.8 % 01/26/24 05:03 Eos % (Auto) 0.4 % 01/26/24 05:03 Baso % (Auto) 0.1 % 01/26/24 05:03 Neut # (Auto) 12.31 10^3/uL (1.8-7.7) H 01/26/24 05:03 Lymph # (Auto) 0.4 10^3/uL (0.8-4.8) L 01/26/24 05:03 [place] # (Auto) 0.5 10^3/uL (0.2-0.9) 01/26/24 05:03 Eos # (Auto) 0.1 10^3/uL (0.0-0.8) 01/26/24 05:03 Baso # (Auto) 0.0 10^3/uL (0.0-0.1) 01/26/24 05:03 Nucleated RBC % (auto) 0 % 01/26/24 05:03 Nucleated RBCs # 0.0 /100WBC 01/26/24 05:03 PT 14.80 SECONDS (12.1-14.9) 01/16/24 11:58 INR 1.13 (0.8-1.2) 01/16/24 11:58 APTT 49.3 SECONDS (23.9-36.7) H 01/20/24 10:52 Specimen Type Arterial 01/16/24 04:57 Sample Site Brachial, right 01/16/24 04:57 ABG pH 7.41 (7.35-7.45) 01/16/24 04:57 ABG pCO2 50.6 mmHg (35-45) H 01/16/24 04:57 ABG pO2 73.7 mmHg (80.0-100.0) L 01/16/24 04:57 ABG PO2/FiO2 Ratio 0 01/15/24 20:15 ABG HCO3 32.0 mmol/L (22-26) H 01/16/24 04:57 ABG O2 Saturation 95.4 01/16/24 04:57 ABG Base Excess 6.1 mmol/L (-2.0-2.0) H 01/16/24 04:57 [place] Test N/a 01/16/24 04:57 A-a O2 Gradient 1.8 mmHg (5-10) L 01/16/24 04:57 Hematocrit 40.1 % (37-47) 01/16/24 04:57 Hgb O2 Saturation 93.8 % (95-100) L 01/16/24 04:57 Carboxyhemoglobin 1.4 %THgb (0.4-20.1) 01/16/24 04:57 Methemoglobin 0.2 % (0.4-1.5) L 01/16/24 04:57 Total Hemoglobin 13.1 g/dL (12-16) 01/16/24 04:57 Sodium 140.0 mmol/L (131-143) 01/16/24 04:57 Potassium 3.7 mmol/L (3.5-5.0) 01/16/24 04:57 Glucose 152.0 mg/dL (70-115) H 01/16/24 04:57 Ionized Calcium 1.1 mmol/L (1.1-1.4) 01/16/24 04:57 O2 Delivery Device Nc 01/16/24 04:57 O2 Liters/Min 10.0 % 01/16/24 04:57 FiO2 65.0 % 01/15/24 20:15 [employer] Technician ID [email or web address] 01/16/24 04:57 Sodium 141 mmol/L (136-145) 01/26/24 05:03 Potassium 4.7 mmol/L (3.5-5.1) 01/26/24 05:03 Chloride 101 mmol/L (98-107) 01/26/24 05:03 Carbon Dioxide 29 mmol/L (22-29) 01/26/24 05:03 Anion Gap 15.7 (5-19) 01/26/24 05:03 BUN 22 mg/dL (8-23) 01/26/24 05:03 Creatinine 0.8 mg/dL (0.5-0.9) 01/26/24 05:03 GFR Calculation 73.2 mL/min (90-130) L 01/26/24 05:03 Glucose 92 mg/dL (65-115) 01/26/24 05:03 Estimat Average Glucose 100 01/16/24 04:27 Hemoglobin A1c 5.1 % (4.0-6.0) 01/16/24 04:27 Calculated Osmolality 295 mOsm/kg (285-295) 01/26/24 05:03 Lactic Acid 1.0 mmol/L (0.5-2.2) 01/19/24 14:19 Calcium 8.7 mg/dL (8.5-10.5) 01/26/24 05:03 Phosphorus 4.3 mg/dL (2.5-4.5) 01/16/24 04:27 Magnesium 2.2 mg/dL (1.7-2.3) 01/16/24 04:27 Iron 42 ug/dL (37-145) 01/15/24 18:40 TIBC 242 mcg/dl 01/15/24 18:40 % Saturation 17.3 % (20-50) L 01/15/24 18:40 Unsat Iron Binding 200 ug/dL (112-347) 01/15/24 18:40 Total Bilirubin 0.3 mg/dL (0.15-1.2) 01/16/24 04:27 AST 18 U/L (0-32) 01/16/24 04:27 ALT 13 U/L (0-33) 01/16/24 04:27 Alkaline Phosphatase 70 U/L (35-105) 01/16/24 04:27 Lactate Dehydrogenase 324 U/L (135-214) H 01/17/24 07:46 Troponin T Baseline 23 ng/L (0-10) H 01/15/24 16:40 Troponin T 120 Minute 6.00 ng/L (0-10) 01/15/24 18:39 Delta Troponin T -17.00 ABS# (0-10) L 01/15/24 18:39 Troponin T Hi Sens 6Hr 18.59 ng/L (0-10) H 01/15/24 22:47 Troponin T Hi Sens 6Hr Delta -4.41 ng/L (0-12) L 01/15/24 22:47 C-Reactive Protein 58.0 mg/L (0.0-4.9) H 01/20/24 05:00 NT-Pro-B Natriuret Pep 417 pg/mL (0-125) H 01/24/24 11:36 Total Protein 6.2 g/dL (6.6-8.7) L 01/16/24 04:27 Albumin 3.0 g/dL (3.5-5.2) L 01/16/24 04:27 Globulin 3.2 g/dL (1.3-4.6) 01/16/24 04:27 Triglycerides 81 mg/dL (0-150) 01/16/24 04:27 Cholesterol 176 mg/dL (0-200) 01/16/24 04:27 LDL Cholesterol, Calc 103 mg/dL (50-129) 01/16/24 04:27 HDL Cholesterol 57 mg/dL (60-100) L 01/16/24 04:27 LDL/HDL Ratio 1.81 RATIO (0.00-3.22) 01/16/24 04:27 Cholesterol/HDL Ratio 3.09 mg/dL (0.0-4.40) 01/16/24 04:27 Vitamin B12 589 pg/mL (232-1245) 01/15/24 18:40 Folate > 20.0 ng/mL (4.8-37.3) 01/16/24 04:27 Procalcitonin 0.05 ng/mL (0-0.5) 01/20/24 05:00 TSH 0.59 uIU/mL (0.27-4.20) 01/15/24 18:40 Urine Color Yellow (Yellow) 01/16/24 19:15 Urine Appearance Clear (CLEAR) 01/16/24 19:15 Urine pH 5 (5-7) 01/16/24 19:15 Ur Specific [place] 1.005 (1.005-1.030) 01/16/24 19:15 Urine Protein Neg (Negative) 01/16/24 19:15 Urine Glucose (UA) Norm (Normal) 01/16/24 19:15 Urine Ketones Negative (Negative) 01/16/24 19:15 Urine Blood Neg (Negative) 01/16/24 19:15 Urine Nitrate Negative (Negative) 01/16/24 19:15 Urine Bilirubin Neg (Negative) 01/16/24 19:15 Urine Urobilinogen Norm mg/dL (Negative) 01/16/24 19:15 Ur Leukocyte Esterase 1+ (Negative) H 01/16/24 19:15 Urine RBC 0-4 /hpf (0-2) H 01/16/24 19:15 Urine WBC 21-50 /hpf (0-5) 01/16/24 19:15 Ur Squamous Epith Cells None /hpf (0-5) 01/16/24 19:15 Uric Acid Crystals 0-4 /hpf 01/16/24 19:15 Amorphous Sediment Not Reportable 01/16/24 19:15 Urine Bacteria Trace /hpf (NONE) 01/16/24 19:15 Fluid Color Red 01/16/24 14:00 Fluid Appearance Cloudy 01/16/24 14:00 Fluid WBC 459 /uL 01/16/24 14:00 Fluid RBC 92.000 10^3/uL 01/16/24 14:00 Fluid Hematocrit 1.0 % 01/16/24 14:00 Fld Polynuclear WBCs # 0.092 01/16/24 14:00 Fld Polynuclear WBCs % 20.100 % 01/16/24 14:00 Fl Mononucl WBCs #(Auto) 0.367 01/16/24 14:00 Fl Mononuclear % Auto 79.900 % 01/16/24 14:00 Fld Crystal Laterality Left lower 01/16/24 14:00 Fluid Albumin 2.1 g/dL 01/16/24 14:00 Fluid Creatinine 1.0 (0.5-0.9) H 01/16/24 14:00 Pleural pH 9.00 (6.5-7.5) H 01/16/24 14:00 Pleural Total Protein 3.4 g/dL 01/16/24 14:00 Pleural LDH 488 U/L 01/16/24 14:00 Pleural Glucose 133.0 mg/dL 01/16/24 14:00 Pleural Amylase 12 U/L 01/16/24 14:00 Pleural Triglycerides 28 mg/dL 01/16/24 14:00 Vancomycin Trough 22.0 ug/mL (10-15) H 01/17/24 07:46 C. difficile (PCR) Negative (Negative) 01/19/24 11:43 MRSA (PCR) Not detected (NOT DETECTED) 01/16/24 19:18 A&P Assessment and plan (1) Pulmonary hypertension: (2) Recurrent left pleural effusion: (3) Goals of care, counseling/discussion: (4) Lung cancer: (5) Acute and chronic respiratory failure ([id number]): (6) Pulmonary embolism: Plan # LLL nodule-s/p SBRT August 2023 # Recurrent hemorrhagic left pleural effusion-cytology 01/07/2024-suspicious for malignancy; insufficient material # CTA with ipsilateral hilar/mediastinal lymphadenopathy 3.5 cm hilar mass- appears metastatic lesion -She is very high risk for bronchoscopy and biopsies-given her significant FiO2 requirements as well as underlying bullous emphysema and pulmonary hypertension. She understands the risks and refuses biopsies. -01/07/2024-s/p first thoracentesis 1500 cc hemorrhagic fluid 01/07/2024-cytology suspicious for malignancy; insufficient material -01/15/2024-s/p second thoracentesis 1200 cc hemorrhagic fluid-cytology Rare atypical cells with prominent nucleoli highly suspicious for malignancy -01/20/2024-inserted indwelling left side Pleurx catheter for recurrent hemorrhagic left pleural fluid placed and 1 L hemorrhagic fluid drained; -Recommended to arrange for home health nurse and drain at least 3 times weekly, -Clinically unchanged but she is at baseline 5 to 6 L supplemental oxygen # Goals of care discussion -I discussed frankly with patient she has high likelihood of metastatic lung cancer with metastatic pleural effusion-she is still in denial of malignancy. Even if it turns out to be malignancy-; she understands that she is not a surgical candidate given her significant bullous emphysema, poor lung function, probable advance stage, although she is still in denial of malignancy diagnosis. Even if it turns out to be malignancy-she does not want chemotherapy or radiation. -Given her overall prognosis-with underlying bullous emphysema with significantly high FiO2 requirement as outpatient (up to 6 to 8 L at rest and 10 to 15 L on ambulation ); underlying pulmonary hypertension; and possible metastatic malignancy-recommended hospice -Patient tells me that she does not want to be hospice yet; recommended consultation with palliative services physician if available # Acute on chronic hypoxic respiratory failure-and inpatient with significant pulmonary hypertension/suspected lung malignancy/recurrent left pleural effusion/significant bullous emphysema/pulmonary embolism -Currently her FiO2 requirement down to 5-6 L. This is her baseline and she requires up to 15 L on exertion as outpatient. -First week of January 2024 CTA showed left pulmonary embolism for which she was on Eliquis-during this admission she was switched to heparin drip-in anticipation for Pleurx catheter; now that [place] drain was placed-heparin stopped and started on Eliquis Attestations 2 Medical Necessity Statement*: Awaiting social services analyst evaluation for home health arrangements Time Spent in Patient Care: Greater than 35 minutes (>than 50% of time spent in counselling and/or direct pt care on unit) . Coding Level of Care Code Acute Code for Chg Fwd Diagnoses Pulmonary hypertension I27.20 Recurrent left pleural effusion J90 Goals of care, counseling/discussion Z71.89 Lung cancer C34.90 Acute and chronic respiratory failure ([id number]) J96.20 Pulmonary embolism I26.99 Time Spent (min) 36
--- NOTE | 2024-01-26 11:39 | PM.PN ---
Subjective Subjective: Patient was seen this morning, she continues to complain of shortness of breath, with development of tachycardia, shortness of breath with minimal exertion, I had a detailed discussion with patient this morning about her goals of care, for now she is not ready for hospice she tells me, she does not want to go to a long-term care facility such as [facility] as she has been there already before, she wants to go to a fpc with physical therapy however I had a detailed discussion with her about physical therapy is concerned about getting her up and moving her, with her developing hypoxia tachycardia hypotension with exertion getting a physical therapy assessment here is difficult, and this is what the insurance company needs, to see if she qualifies for physical therapy at group home facility, we also discussed her potentially going home however the concern is that she is a high risk of readmission, certainly this is a difficult the situation, I am writing placed on midodrine to help with hypotension, I am also going to decrease her dose of metoprolol however she does develop significant tachycardia on exertion, when she does stand up or exert herself her ox requirements increased to 10 L which she tells me she is done at home but at times it does increase to 15 L she does become quite short of breath and requires some time to recuperate, discussed possibly [facility] as an option, she tells me that she is certainly open to the idea, Vitals/I&O/Wt Last Vital Signs Temp 97.9 F 01/26/24 08:28 Pulse 113 H 01/26/24 08:28 Resp 17 01/26/24 08:28 BP 118/82 01/26/24 08:28 Pulse Ox 91 01/26/24 08:28 O2 Del Method Nasal Cannula 01/26/24 08:28 O2 Flow Rate 6 01/26/24 08:17 FiO2 65 01/16/24 11:00 01/25/24 01/26/24 01/26/24 22:59 06:59 14:59 Intake Total 240 / 480 0 / 480 480 / 480 Output Total 450 / 700 Balance -210 / -220 0 / -220 480 / 480 Weight last 48 hrs Weight 64.637 kg Weight 66.905 kg Weight 66.905 kg Physical Exam Const: COMMON NORMALS: no acute distress and patient oriented x3 Resp: COMMON NORMALS: normal respiratory effort, No retractions and No use of accessory muscles OTHER: Decrease breath sounds left lung base Cardio: COMMON NORMALS: regular rate, regular rhythm, S1 normal heart sound present and S2 normal heart sound present RATE: regular rate RHYTHM: regular rhythm HEART SOUNDS: S1 normal heart sound present and S2 normal heart sound present GI: COMMON NORMALS: Normal to inspection, nondistended, normoactive bowel sounds present and non-tender Extremity: COMMON NORMALS: no pedal edema Neuro: COMMON NORMALS: patient oriented x3 Psych: COMMON NORMALS: mental status grossly normal Urinary Catheter Management: Francois: Cath Placed During This Visit: yes, but has since been removed by the nurse Reason for Continuing Indwelling Catheter: Decision to DC Catheter Urinary Catheter Date of Insertion: 01/15/24 Urinary Catheter Time of Insertion: 22:33 Date Urinary Catheter Removed: 01/21/24 Time Urinary Catheter Discontinued: 14:45 Data 01/26/24 05:03 01/26/24 05:03 A&P Assessment and plan (1) Pleural effusion: (2) Acute and chronic respiratory failure ([id number]): (3) Lung cancer: (4) Pulmonary embolism: (5) Pulmonary hypertension: (6) Hemoptysis: (7) Physical deconditioning: (8) Muscle wasting: (9) Protein calorie malnutrition: Plan Acute on chronic hypoxic respiratory failure secondary to COPD, hemorrhagic pleural effusion, possible pneumonia With evidence of hemorrhagic pleural effusion, culture so far negative, exudative pleural effusion by lights criteria -With underlying severe lung disease, bullous emphysema, pulm hypertension -History of left lower lobe nodule, status post SBRT August 2023 ? History of bullous emphysema, pulmonary hypertension -Recurrent hemorrhagic left pleural effusion, cytology 01/26 suspicious for malignancy, cytology , rare atypical cells with prominent nucleoli highly suspicious for malignancy -CTA ipsilateral hilar/mediastinal lymphadenopathy, 3.5 cm hilar mass, appears metastatic lesion, high risk for bronchoscopy and biopsies given her significant FiO2 requirements, underlying emphysema pulm hypertension she understands this refused biopsies Plan: Moved to [facility] Currently on nasal cannula, currently on 6 L, uses between 5 to 10 L at home nebulization with budesonide and DuoNeb. prednisone 40 mg daily Status post Pleurx catheter placement, drained twice a week, will drain again today Continue Eliquis Pleural studies no growth, de-escalate antibiotics to Augmentin Continue sildenafil for pulmonary hypertension at home dosing CT angiogram of the chest CT/CT angio chest 39287 IMPRESSION: 1. Redemonstration of eccentric nonocclusive thrombus within the posterior aspect of the left main pulmonary artery unchanged. 2. 3.5 cm left hilar mass likely malignant in nature, unchanged. 3. Moderate ipsilateral left hilar and mediastinal lymphadenopathy likely metastatic in nature. 4. Large left pleural effusion with adjacent compressive atelectasis left lung, stable. 5. Chronic compression fractures T6 and T10 vertebral bodies unchanged. -CT shows ipsilateral hilar/mediastinal lymphadenopathy 3. 5 cm hilar mass, -01/16/2024 rare atypical cells with prominent however suspicious for malignancy -Goals of care discussion, patient is considering hospice however wants to pursue physical therapy, fpc stay versus long-term care stay for rehab before deciding - hold off on Lasix therapy ? Patient's Pleurx drain was drained on 01/25/2024, 200 mL out ? The issue prolonging her discharge is her overall debility, deconditioning, and her hypoxia, tachycardia and hypotension on exertion ? He has significant deconditioning, generalized weakness which is a concern for her to go home, she wants to go and get rehab at a group home facility ? However here when she does work with physical therapy she becomes hypotensive, tachycardic, short of breath O2 saturations drop into the mid 80s requiring up to 15 L ? I had a discussion with her that there might not be an ideal situation I have already diuresed her as much as I can, we drained her Pleurx catheter, it might be that this is because of her underlying severe respiratory failure, and cardiac compensation, her severe underlying pulmonary hypertension her hemorrhagic pleural effusion, ? Overall her prognosis is poor, and I think hospice would be a reasonable option however she is not ready to make this decision, she does not want to have any chemotherapy anymore radiation therapy for her cancer, ? Chayito wants to go to rehab and get stronger, but I have tried my best to make this happen however it is proving to be difficult and possibly unlikely ? I was honest with Chayito and might be likely that she would have to go home, that this would be the only option that would be available to her, but she would have high risk of readmission, and complications, I think the only reasonable option to go home would be at home on hospice, but she is not ready for this Continue other home medications including levothyroxine, metoprolol physical deconditioning, protien calorie mlanutrition, muscle wasting -secondary to cancer, copd, respiratory failure -ptot -consult dietary -protein shakes DNR/DNI DVT prophylaxis: Eliquis PUD prophylaxis: Protonix 40 mg daily Plan for today 1 dose IV Lasix, start midodrine Attestations Medical Necessity Statement*: Patient requires hospitalization for acute on chronic hypoxic respiratory failure Diagnoses Pleural effusion J90 Acute and chronic respiratory failure ([id number]) J96.20 Lung cancer C34.90 Pulmonary embolism I26.99 Pulmonary hypertension I27.20 Hemoptysis R04.2 Physical deconditioning R53.81 Muscle wasting M62.50 Protein calorie malnutrition E46
[2024-01-26] MEDS: midodrine 5 mg TABLET 10 MG PO ×2 (13:53→20:54)
[2024-01-26] MEDS: metoprolol tartrate 25 mg Tablet 12.5 MG PO (17:42)
[2024-01-26] MEDS: simethicone 80 mg Chew PO (17:42)
[2024-01-27] VITALS (16 sets, daily range): BP systolic 95–133; BP diastolic 73–88; PULSE 95–126; RESP 17–24; TEMP 36.4–36.8; O2SAT 89–96; BMI 23.3
[2024-01-27] MEDS: albuterol 2.5 mg/3 mL Neb INHALATION ×4 (02:30→19:29)
[2024-01-27] MEDS: ipratropium-albuterol 3 mL Neb INHALATION (02:30)
[2024-01-27] MEDS: levothyroxine 150 mcg Tablet PO (06:09)
[2024-01-27 06:21] LABS: Basophils # 0.1 10^3/uL (0.0-0.1); Basophils % 0.6 %; Eosinophils % 0.2 %; Hematocrit 43.7 % (36-47); Lymphocytes # 0.4 10^3/uL (0.8-4.8); Mean Corpuscular HGB Conc 30.7 g/dL (30-55); Mean Corpuscular Hemoglobin 29.8 pg (27-33); Mean Corpuscular Volume 97.3 fl (85-98); Mean Platelet Volume 10.7 fL (7.4-10.4); Monocytes # 0.5 10^3/uL (0.2-0.9); Monocytes % 4.3 %; Neutrophils % 87.9 %; Nucleated Red Blood Cells % 0 %; Platelet Count 208 10^3/cmm (157-399); Red Blood Count 4.49 10^6/uL (3.85-5.65); Red Cell Distribution Width 14.9 % (12.1-15.1); White Blood Count 12.16 10^3/uL (3.29-11.43)
[2024-01-27 06:39] LABS: Blood Urea Nitrogen 17 mg/dL (8-23); Calcium 8.5 mg/dL (8.5-10.5); Carbon Dioxide 25 mmol/L (22-29); Chloride 102 mmol/L (98-107); Creatinine Clr Calc Pharmacy 109.2896; Glomerular Filtration Rate 125.9 mL/min (90-130); Glucose 86 mg/dL (65-115); Osmolality Calculated 287 mOsm/kg (285-295); Sodium 138 mmol/L (136-145)
[2024-01-27 07:08] LABS: Anion Gap 15.8 (5-19); Potassium 4.8 mmol/L (3.5-5.1)
[2024-01-27] MEDS: apixaban 5 mg Tablet PO ×2 (09:07→20:40)
[2024-01-27] MEDS: pantoprazole DR 40 mg Tablet PO (09:07)
[2024-01-27] MEDS: magnesium lactate 84 mg Tablet PO (09:07)
[2024-01-27] MEDS: multivitamin therapeutic Tablet 1 TAB PO (09:07)
[2024-01-27] MEDS: metoprolol tartrate 25 mg Tablet 12.5 MG PO ×2 (09:07→18:39)
[2024-01-27] MEDS: cholecalciferol (vitamin D3) 1,000 unit Tablet 2000 UNIT PO (09:07)
[2024-01-27] MEDS: simethicone 80 mg Chew PO (09:15)
[2024-01-27] MEDS: [UNRECOGNIZED DRUG - OTHER] 500 EACH PO (09:15)
[2024-01-27] MEDS: lactobacillus 1 Tablet 1 TAB PO ×2 (12:16→20:40)
--- NOTE | 2024-01-27 13:43 | P.PN_ITS ---
Subjective 2 Subjective: She has been little bloated, she feels it is due to antibiotics, refused antibiotics. It has been affecting her appetite as well as her breathing. Vitals/I&O/Wt Last Vital Signs Temp 97.9 F 01/27/24 11:52 Pulse 103 H 01/27/24 11:52 Resp 18 01/27/24 11:52 BP 111/73 01/27/24 11:52 Pulse Ox 95 01/27/24 11:52 O2 Del Method Nasal Cannula 01/27/24 11:52 O2 Flow Rate 6 01/27/24 08:22 FiO2 65 01/16/24 11:00 01/26/24 01/27/24 01/27/24 22:59 06:59 14:59 Intake Total 480 / 1440 50 / 1490 120 / 120 Output Total 120 / 120 Balance 480 / 1440 -70 / 1370 120 / 120 Weight last 48 hrs Weight 63.503 kg Weight 59.148 kg Weight 64.637 kg Physical Exam 2 Const: COMMON NORMALS: patient oriented x3 and alert GENERAL APPEARANCE: c ooperative ORIENTATION/CONSCIOUSNESS: Yes awake HENMT: COMMON NORMALS: oropharynx normal Neck/C-Spine: COMMON NORMALS: no JVD Resp: COMMON NORMALS: normal respiratory effort and clear to auscultation bilaterally AUSCULTATION: clear to auscultation bilaterally Cardio: COMMON NORMALS: no JVD, regular rhythm, S1 normal heart sound present, S2 normal heart sound present and No murmurs present (Cardio) RHYTHM: regular rhythm HEART SOUNDS: S1 normal heart sound present and S2 normal heart sound present GI: COMMON NORMALS: Normal to inspection, nondistended, normoactive bowel sounds present, Soft to palpation and non-tender PALPATION: Yes Soft to palpation Extremity: COMMON NORMALS: no joint enlargement and no pedal edema Neuro: COMMON NORMALS: patient oriented x3 and moves all extremities S ENSORIUM/ORIENTATION: Yes alert Skin: COMMON NORMALS: no rashes or lesions noted GENERAL SKIN EXAM: no rashes or lesions noted Urinary Catheter Management: Francois: Cath Placed During This Visit: yes, but has since been removed by the nurse Reason for Continuing Indwelling Catheter: Decision to DC Catheter Urinary Catheter Date of Insertion: 01/15/24 Urinary Catheter Time of Insertion: 22:33 Date Urinary Catheter Removed: 06/18/24 Time Urinary Catheter Discontinued: 14:45 Data 01/27/24 06:08 01/27/24 06:08 A&P Assessment and plan (1) Pleural effusion: (2) Acute and chronic respiratory failure ([id number]): (3) Lung cancer: (4) Pulmonary embolism: (5) Pulmonary hypertension: (6) Hemoptysis: (7) Physical deconditioning: (8) Muscle wasting: (9) Protein calorie malnutrition: Plan Acute on chronic hypoxic respiratory failure secondary to COPD, hemorrhagic pleural effusion, possible pneumonia With evidence of hemorrhagic pleural effusion, culture so far negative, exudative pleural effusion by lights criteria Reviewed vitals, CBC, BMP, blood culture, body fluid culture. She feels that the antibiotics are providing her significant indigestion, affecting her appetite, as well as causing bloating which is affecting her breathing. She requests for a probiotic. Discussed with her risk of bloating, constipation with probiotic, she understands, wants to proceed. Added. She request to repeat an x-ray after draining the Pleurx catheter. Reviewed vitals, CBC, BMP. Requested chest x-ray. Follow-up blood counts, chemistry. She has been weak, getting dyspneic and desaturating with exertion. She states she has been managing this by taking breaks, continues to gradually work to try to regain some stamina. Wants to continue rehabilitation. Discussed with correctional case records supervisor, discussed options, as per discussion with her she would like to try to go for rehabilitation at [facility]. Arrangements underway. She has been getting more dyspneic as well, discussed with nursing staff, we drained her effusion with Pleurx catheter with additional 350 mL out. Requiring Xanax for anxiety. -With underlying severe lung disease, bullous emphysema, pulm hypertension -History of left lower lobe nodule, status post SBRT August 2023 ? History of bullous emphysema, pulmonary hypertension -Recurrent hemorrhagic left pleural effusion, cytology 01/26 suspicious for malignancy, cytology , rare atypical cells with prominent nucleoli highly suspicious for malignancy -CTA ipsilateral hilar/mediastinal lymphadenopathy, 3.5 cm hilar mass, appears metastatic lesion, high risk for bronchoscopy and biopsies given her significant FiO2 requirements, underlying emphysema pulm hypertension she understands this refused biopsies Continue Eliquis Pleural studies no growth, de-escalate antibiotics to Augmentin Continue sildenafil for pulmonary hypertension at home dosing CT angiogram of the chest CT/CT angio chest [id number] IMPRESSION: 1. Redemonstration of eccentric nonocclusive thrombus within the posterior aspect of the left main pulmonary artery unchanged. 2. 3.5 cm left hilar mass likely malignant in nature, unchanged. 3. Moderate ipsilateral left hilar and mediastinal lymphadenopathy likely metastatic in nature. 4. Large left pleural effusion with adjacent compressive atelectasis left lung, stable. 5. Chronic compression fractures T6 and T10 vertebral bodies unchanged. -CT shows ipsilateral hilar/mediastinal lymphadenopathy 3. 5 cm hilar mass, -01/16/2024 rare atypical cells with prominent however suspicious for malignancy -Goals of care discussion, patient is considering hospice however wants to pursue physical therapy, custodial stay versus long-term care stay for rehab before deciding ? Patient's Pleurx drain was drained on 01/25/2024, ? The issue prolonging her discharge is her overall debility, deconditioning, and her hypoxia, tachycardia and hypotension on exertion ? He has significant deconditioning, generalized weakness which is a concern for her to go home, she wants to go and get rehab at a half-way facility ? However here when she does work with physical therapy she becomes hypotensive, tachycardic, short of breath O2 saturations drop into the mid 80s requiring up to 15 L ? I had a discussion with her that there might not be an ideal situation I have already diuresed her as much as I can, we drained her Pleurx catheter, it might be that this is because of her underlying severe respiratory failure, and cardiac compensation, her severe underlying pulmonary hypertension her hemorrhagic pleural effusion, ? Overall her prognosis is poor, and I think hospice would be a reasonable option however she is not ready to make this decision, she does not want to have any chemotherapy anymore radiation therapy for her cancer, ? Chayito wants to go to rehab and get stronger, but I have tried my best to make this happen however it is proving to be difficult and possibly unlikely ? I was honest with Chayito and might be likely that she would have to go home, that this would be the only option that would be available to her, but she would have high risk of readmission, and complications, I think the only reasonable option to go home would be at home on hospice, but she is not ready for this Continue other home medications including levothyroxine, metoprolol physical deconditioning, protien calorie mlanutrition, muscle wasting -secondary to cancer, copd, respiratory failure -ptot -protein shakes DNR/DNI DVT prophylaxis: Eliquis PUD prophylaxis: Protonix 40 mg daily Attestations 2 Medical Necessity Statement*: Continue admission for assessment management of respiratory failure, with recurrent pleural effusion, hemorrhagic effusion, suspected malignancy, post discharge planning and arrangements. and High MDM includes amount and/or complexity of data reviewed/ordered [ resulted lab(s)/test(s), ordered lab(s)/test(s) and other healthcare professional discussion] as documented Diagnoses Pleural effusion J90 Acute and chronic respiratory failure ([id number]) J96.20 Lung cancer C34.90 Pulmonary embolism I26.99 Pulmonary hypertension I27.20 Hemoptysis R04.2 Physical deconditioning R53.81 Muscle wasting M62.50 Protein calorie malnutrition E46
[2024-01-27] MEDS: ALPRAZolam 0.5 mg Tablet 0.25 MG PO (14:48)
--- NOTE | 2024-01-27 15:43 | PC.SOCIAL ---
IMM Updated Updated pt on IMM. No questions voiced. Provided pt a copy. Initialed, dated, & timed copy in chart.
--- NOTE | 2024-01-27 16:30 | XRR_ITS ---
PROCEDURE INFORMATION: Exam: XR Chest Exam date and time: 01/27/2024 4:41 PM Age: 58 years old Clinical indication: Shortness of breath; Prior surgery; Surgery date: 6+ months; Surgery type: [place] drain; Additional info: Increased oxygen demands, post draining TECHNIQUE: Imaging protocol: Radiologic exam of the chest. Views: 1 view. COMPARISON: CR XR chest 1V portable [id number] 01/24/2024 9:35 AM FINDINGS: Lungs: Moderate left-sided pleural effusion with a drainage catheter in place. Interlobular septal thickening of the left lung compatible with interstitial edema. 3 cm nodular opacity in the right costophrenic sulcus raising the question of neoplasm. Previously visualized left hilar mass is better visualized by CT. No evidence of pneumothorax. Heart/Mediastinum: Cardiomediastinal silhouette is within normal limits. The left heart border is partially obscured by effusion. Bones/joints: No evidence of acute osseous abnormality. XR/XR chest 1V portable [id number] IMPRESSION: 1. No evidence of pneumothorax. 2. Moderate left-sided pleural effusion with drainage catheter in place. 3. Severe emphysematous changes. 4. 3 cm nodular opacity in the right costophrenic sulcus raising the question of neoplasm.
[2024-01-27] MEDS: midodrine 5 mg TABLET 10 MG PO (20:40)
[2024-01-28] VITALS (13 sets, daily range): BP systolic 105–115; BP diastolic 69–78; PULSE 84–121; RESP 16–20; TEMP 36.4–36.9; O2SAT 90–96
[2024-01-28] MEDS: albuterol 2.5 mg/3 mL Neb INHALATION ×4 (02:27→20:41)
[2024-01-28 05:09] LABS: Basophils # 0.1 10^3/uL (0.0-0.1); Basophils % 0.5 %; Eosinophils % 0.2 %; Hematocrit 40.3 % (36-47); Lymphocytes # 0.3 10^3/uL (0.8-4.8); Lymphocytes % 3.1 %; Mean Corpuscular HGB Conc 31.3 g/dL (30-55); Mean Corpuscular Hemoglobin 29.5 pg (27-33); Mean Corpuscular Volume 94.4 fl (85-98); Mean Platelet Volume 10.5 fL (7.4-10.4); Monocytes # 0.5 10^3/uL (0.2-0.9); Monocytes % 4.9 %; Neutrophils # 8.69 10^3/uL (1.8-7.7); Neutrophils % 86.4 %; Nucleated Red Blood Cells % 0 %; Platelet Count 190 10^3/cmm (157-399); Red Blood Count 4.27 10^6/uL (3.85-5.65); Red Cell Distribution Width 14.9 % (12.1-15.1); White Blood Count 10.05 10^3/uL (3.29-11.43)
[2024-01-28 05:34] LABS: Anion Gap 14.6 (5-19); Blood Urea Nitrogen 17 mg/dL (8-23); Calcium 8.6 mg/dL (8.5-10.5); Carbon Dioxide 29 mmol/L (22-29); Chloride 99 mmol/L (98-107); Creatinine Clr Calc Pharmacy 93.8167; Glucose 83 mg/dL (65-115); Osmolality Calculated 287 mOsm/kg (285-295); Potassium 4.6 mmol/L (3.5-5.1); Sodium 138 mmol/L (136-145)
[2024-01-28] MEDS: levothyroxine 150 mcg Tablet PO (06:13)
[2024-01-28] MEDS: magnesium lactate 84 mg Tablet PO (08:21)
[2024-01-28] MEDS: amoxicillin-clav 875-125 mg Tablet 1 TAB PO ×2 (08:21→17:58)
[2024-01-28] MEDS: cholecalciferol (vitamin D3) 1,000 unit Tablet 2000 UNIT PO (08:22)
[2024-01-28] MEDS: [UNRECOGNIZED DRUG - OTHER] 500 EACH PO (08:22)
[2024-01-28] MEDS: lactobacillus 1 Tablet 1 TAB PO ×3 (08:22→20:35)
[2024-01-28] MEDS: pantoprazole DR 40 mg Tablet PO (08:22)
[2024-01-28] MEDS: apixaban 5 mg Tablet PO ×2 (08:22→20:35)
[2024-01-28] MEDS: metoprolol tartrate 25 mg Tablet 12.5 MG PO ×2 (08:22→17:57)
[2024-01-28] MEDS: multivitamin therapeutic Tablet 1 TAB PO (08:22)
--- NOTE | 2024-01-28 09:44 | P.PN_ITS ---
Subjective 2 Subjective: Clinically unchanged Increased FiO2 requirements to 7 to 8 L Today agreed to go to LTAC-commissioned police officer informed Medications: Reviewed: Yes Vitals/I&O/Wt Last Vital Signs Temp 97.6 F 01/28/24 08:00 Pulse 106 H 01/28/24 08:00 Resp 18 01/28/24 08:00 BP 113/78 01/28/24 08:00 Pulse Ox 94 01/28/24 08:00 O2 Del Method Nasal Cannula 01/28/24 08:00 O2 Flow Rate 8 01/28/24 07:26 FiO2 65 01/16/24 11:00 01/27/24 01/28/24 01/28/24 22:59 06:59 14:59 Intake Total 565 / 685 120 / 805 Output Total 350 / 350 Balance 215 / 335 120 / 455 Weight last 48 hrs Weight 138 lb 11.2 oz Weight 140 lb Weight 130 lb 6.4 oz Physical Exam 2 Narrative: General: alert, in mild respiratory distress HEENT: conj clear, EOMI, PERRL, mmm, Neck: supple, no meningismus Heme: no cervical LAP Respiratory: Inspection: No visible deformity of the chest wall Palpation: Trachea is mildly deviated to the right, bilateral symmetric expansion Percussion: Increased dullness left lower lung zone Auscultation: Reduced breath sounds left lower lung zone Cardiovascular: rrr, nl s1s2, no mrg Abdomen: soft, nt, nd, no r/g, bs+ Extremities: pulses +, no edema, no c/c : no CVA tenderness Skin: intact, no rash MSK: no back or neck pain Neurologic: grossly intact Urinary Catheter Management: Francois: Cath Placed During This Visit: yes, but has since been removed by the nurse Reason for Continuing Indwelling Catheter: Decision to DC Catheter Urinary Catheter Date of Insertion: 01/15/24 Urinary Catheter Time of Insertion: 22:33 Date Urinary Catheter Removed: 01/21/24 Time Urinary Catheter Discontinued: 14:45 Data 01/29/24 05:14 01/29/24 05:14 A&P Assessment and plan (1) Pulmonary hypertension: (2) Recurrent left pleural effusion: (3) Goals of care, counseling/discussion: (4) Lung cancer: (5) Acute and chronic respiratory failure ([id number]): (6) Pulmonary embolism: Plan # LLL nodule-s/p SBRT August 2023 # Recurrent hemorrhagic left pleural effusion-cytology 01/07/2024-suspicious for malignancy; insufficient material # CTA with ipsilateral hilar/mediastinal lymphadenopathy 3.5 cm hilar mass- appears metastatic lesion -She is very high risk for bronchoscopy and biopsies-given her significant FiO2 requirements as well as underlying bullous emphysema and pulmonary hypertension. She understands the risks and refuses biopsies. -01/07/2024-s/p first thoracentesis 1500 cc hemorrhagic fluid 01/07/2024-cytology suspicious for malignancy; insufficient material -01/15/2024-s/p second thoracentesis 1200 cc hemorrhagic fluid-cytology Rare atypical cells with prominent nucleoli highly suspicious for malignancy -01/20/2024-inserted indwelling left side Pleurx catheter for recurrent hemorrhagic left pleural fluid placed and 1 L hemorrhagic fluid drained; -Recommended to drain at least 3 times weekly, however currently due to significant deconditioning-she is being referred to LTAC -Clinically unchanged but she is at baseline 6-8 L supplemental oxygen # Goals of care discussion -I discussed frankly with patient she has high likelihood of metastatic lung cancer with metastatic pleural effusion-she is still in denial of malignancy. Even if it turns out to be malignancy-; she understands that she is not a surgical candidate given her significant bullous emphysema, poor lung function, probable advance stage, although she is still in denial of malignancy diagnosis. Even if it turns out to be malignancy-she does not want chemotherapy or radiation. -Given her overall prognosis-with underlying bullous emphysema with significantly high FiO2 requirement as outpatient (up to 6 to 8 L at rest and 10 to 15 L on ambulation ); underlying pulmonary hypertension; and possible metastatic malignancy-recommended hospice -Patient tells me that she does not want to be hospice yet; Patient wants to go to LTAC # Acute on chronic hypoxic respiratory failure-and inpatient with significant pulmonary hypertension/suspected lung malignancy/recurrent left pleural effusion/significant bullous emphysema/pulmonary embolism -Currently her FiO2 requirement down to 6-8 L. This is her baseline and she requires up to 15 L on exertion -First week of January 2024 CTA showed left pulmonary embolism for which she was on Eliquis-during this admission she was switched to heparin drip-in anticipation for Pleurx catheter; now that [place] drain was placed-heparin stopped and started on Eliquis Attestations 2 Medical Necessity Statement*: Awaiting child welfare social worker evaluation for home health arrangements Time Spent in Patient Care: Greater than 35 minutes (>than 50% of time spent in counselling and/or direct pt care on unit) . Coding Level of Care Code Acute Code for Chg Fwd Diagnoses Pulmonary hypertension I27.20 Recurrent left pleural effusion J90 Goals of care, counseling/discussion Z71.89 Lung cancer C34.90 Acute and chronic respiratory failure ([id number]-[id number]) J96.20 Pulmonary embolism I26.99 Time Spent (min) 36
[2024-01-28] MEDS: simethicone 80 mg Chew PO ×2 (13:48→20:42)
--- NOTE | 2024-01-28 15:18 | P.PN_ITS ---
Subjective 2 Subjective: She is feeling not the best , but states she is managing. Her abdomen feels slightly better with probiotics. Having some gas. No vomiting, no diarrhea. Vitals/I&O/Wt Last Vital Signs Temp 97.9 F 01/28/24 12:00 Pulse 112 H 01/28/24 13:34 Resp 18 01/28/24 13:34 BP 107/72 01/28/24 12:00 Pulse Ox 94 01/28/24 12:00 O2 Del Method High Flow Nasal Cannula 01/28/24 13:34 O2 Flow Rate 10 01/28/24 13:34 FiO2 65 01/16/24 11:00 01/28/24 01/28/24 01/28/24 06:59 14:59 22:59 Intake Total 120 / 805 120 / 120 Balance 120 / 455 120 / 120 Weight last 48 hrs Weight 62.913 kg Weight 63.503 kg Weight 59.148 kg Physical Exam 2 Const: COMMON NORMALS: patient oriented x3 and alert GENERAL APPEARANCE: c ooperative ORIENTATION/CONSCIOUSNESS: Yes awake HENMT: COMMON NORMALS: oropharynx normal Neck/C-Spine: COMMON NORMALS: no JVD Resp: AUSCULTATION: wheezes right lower (mild) Cardio: COMMON NORMALS: no JVD, regular rhythm, S1 normal heart sound present, S2 normal heart sound present and No murmurs present (Cardio) RHYTHM: regular rhythm HEART SOUNDS: S1 normal heart sound present and S2 normal heart sound present GI: COMMON NORMALS: Normal to inspection, nondistended, normoactive bowel sounds present, Soft to palpation and non-tender PALPATION: Yes Soft to palpation Extremity: COMMON NORMALS: no joint enlargement and no pedal edema Neuro: COMMON NORMALS: patient oriented x3 and moves all extremities S ENSORIUM/ORIENTATION: Yes alert Skin: COMMON NORMALS: no rashes or lesions noted GENERAL SKIN EXAM: no rashes or lesions noted Urinary Catheter Management: Francois: Cath Placed During This Visit: yes, but has since been removed by the nurse Reason for Continuing Indwelling Catheter: Decision to DC Catheter Urinary Catheter Date of Insertion: 01/15/24 Urinary Catheter Time of Insertion: 22:33 Date Urinary Catheter Removed: 01/21/24 Time Urinary Catheter Discontinued: 14:45 Data 01/28/24 04:58 01/28/24 04:58 A&P Assessment and plan (1) Pleural effusion: (2) Acute and chronic respiratory failure ([id number]): (3) Lung cancer: (4) Pulmonary embolism: (5) Pulmonary hypertension: (6) Hemoptysis: (7) Physical deconditioning: (8) Muscle wasting: (9) Protein calorie malnutrition: Plan Acute on chronic hypoxic respiratory failure secondary to COPD, hemorrhagic pleural effusion, possible pneumonia She has resumed antibiotics after starting probiotic. Yesterday Pleurx catheter drained 350 mL of fluid. Repeat chest x-ray on review showed presence of moderate pleural effusion. Worsened oxygenation, requirement of oxygen after 8-10 L. Reviewed vitals, CBC, BMP. Discussed with slot floor attendant. Discussed consideration of additional treatment options. Her condition for consideration of daily drainage for now. Discussed with her. As per discussion with nursing staff she later requests to drain every other day. Monitor volume status, monitor for risk of hypovolemia with increased drainage frequency. Discussed with case planner. Continue arrangements for [facility], but later today as per additional discussion declined. With persistent respiratory failure difficulties with placement at SNF. On additional discussion with patient she is agreeable for arrangements for LTAC. These are being initiated as per discussion with CM. Continue to monitor oxygenation, temps, recheck blood counts. With evidence of hemorrhagic pleural effusion, culture so far negative, exudative pleural effusion by lights criteria Reviewed vitals, CBC, BMP, blood culture, body fluid culture. She feels that the antibiotics are providing her significant indigestion, affecting her appetite, as well as causing bloating which is affecting her breathing. She requests for a probiotic. Discussed with her risk of bloating, constipation with probiotic, she understands, wants to proceed. Added. She request to repeat an x-ray after draining the Pleurx catheter. Reviewed vitals, CBC, BMP. Requested chest x-ray. Follow-up blood counts, chemistry. She has been weak, getting dyspneic and desaturating with exertion. She states she has been managing this by taking breaks, continues to gradually work to try to regain some stamina. Wants to continue rehabilitation. Discussed with case planner, discussed options, as per discussion with her she would like to try to go for rehabilitation at [facility]. Arrangements underway. She has been getting more dyspneic as well, discussed with nursing staff, we drained her effusion with Pleurx catheter with additional 350 mL out. Requiring Xanax for anxiety. -With underlying severe lung disease, bullous emphysema, pulm hypertension -History of left lower lobe nodule, status post SBRT August 2023 ? History of bullous emphysema, pulmonary hypertension -Recurrent hemorrhagic left pleural effusion, cytology 01/26 suspicious for malignancy, cytology , rare atypical cells with prominent nucleoli highly suspicious for malignancy -CTA ipsilateral hilar/mediastinal lymphadenopathy, 3.5 cm hilar mass, appears metastatic lesion, high risk for bronchoscopy and biopsies given her significant FiO2 requirements, underlying emphysema pulm hypertension she understands this refused biopsies Continue Eliquis Pleural studies no growth, de-escalate antibiotics to Augmentin Continue sildenafil for pulmonary hypertension at home dosing CT angiogram of the chest CT/CT angio chest 74543 IMPRESSION: 1. Redemonstration of eccentric nonocclusive thrombus within the posterior aspect of the left main pulmonary artery unchanged. 2. 3.5 cm left hilar mass likely malignant in nature, unchanged. 3. Moderate ipsilateral left hilar and mediastinal lymphadenopathy likely metastatic in nature. 4. Large left pleural effusion with adjacent compressive atelectasis left lung, stable. 5. Chronic compression fractures T6 and T10 vertebral bodies unchanged. -CT shows ipsilateral hilar/mediastinal lymphadenopathy 3. 5 cm hilar mass, -01/16/2024 rare atypical cells with prominent however suspicious for malignancy -Goals of care discussion, patient is considering hospice however wants to pursue physical therapy, senior living stay versus long-term care stay for rehab before deciding ? Patient's Pleurx drain was drained on 01/25/2024, ? The issue prolonging her discharge is her overall debility, deconditioning, and her hypoxia, tachycardia and hypotension on exertion ? He has significant deconditioning, generalized weakness which is a concern for her to go home, she wants to go and get rehab at a retirement facility ? However here when she does work with physical therapy she becomes hypotensive, tachycardic, short of breath O2 saturations drop into the mid 80s requiring up to 15 L ? I had a discussion with her that there might not be an ideal situation I have already diuresed her as much as I can, we drained her Pleurx catheter, it might be that this is because of her underlying severe respiratory failure, and cardiac compensation, her severe underlying pulmonary hypertension her hemorrhagic pleural effusion, ? Overall her prognosis is poor, and I think hospice would be a reasonable option however she is not ready to make this decision, she does not want to have any chemotherapy anymore radiation therapy for her cancer, ? Chayito wants to go to rehab and get stronger, but I have tried my best to make this happen however it is proving to be difficult and possibly unlikely ? I was honest with Chayito and might be likely that she would have to go home, that this would be the only option that would be available to her, but she would have high risk of readmission, and complications, I think the only reasonable option to go home would be at home on hospice, but she is not ready for this Continue other home medications including levothyroxine, metoprolol physical deconditioning, protien calorie mlanutrition, muscle wasting -secondary to cancer, copd, respiratory failure -ptot -protein shakes DNR/DNI DVT prophylaxis: Eliquis PUD prophylaxis: Protonix 40 mg daily Attestations 2 Medical Necessity Statement*: Continue admission for assessment management of respiratory failure, recurrent effusion, post discharge planning and arrangements. Diagnoses Pleural effusion J90 Acute and chronic respiratory failure ([id number]) J96.20 Lung cancer C34.90 Pulmonary embolism I26.99 Pulmonary hypertension I27.20 Hemoptysis R04.2 Physical deconditioning R53.81 Muscle wasting M62.50 Protein calorie malnutrition E46
[2024-01-28] MEDS: midodrine 5 mg TABLET 10 MG PO (20:35)
[2024-01-29] VITALS (14 sets, daily range): BP systolic 108–125; BP diastolic 73–78; PULSE 91–113; RESP 15–19; TEMP 36.6–37.1; O2SAT 90–99
[2024-01-29] MEDS: albuterol 2.5 mg/3 mL Neb INHALATION ×4 (02:38→19:45)
[2024-01-29 05:54] LABS: Basophils # 0.1 10^3/uL (0.0-0.1); Basophils % 0.5 %; Eosinophils % 0.4 %; Hematocrit 42.3 % (36-47); Lymphocytes # 0.9 10^3/uL (0.8-4.8); Lymphocytes % 8.1 %; Mean Corpuscular Hemoglobin 29.1 pg (27-33); Mean Platelet Volume 11.1 fL (7.4-10.4); Monocytes # 0.6 10^3/uL (0.2-0.9); Monocytes % 5.9 %; Neutrophils # 8.86 10^3/uL (1.8-7.7); Neutrophils % 80.9 %; Nucleated Red Blood Cells % 0 %; Platelet Count 232 10^3/cmm (157-399); White Blood Count 10.93 10^3/uL (3.29-11.43)
[2024-01-29] MEDS: levothyroxine 150 mcg Tablet PO (06:07)
[2024-01-29 06:16] LABS: Anion Gap 14.5 (5-19); Blood Urea Nitrogen 15 mg/dL (8-23); Calcium 8.8 mg/dL (8.5-10.5); Carbon Dioxide 30 mmol/L (22-29); Chloride 101 mmol/L (98-107); Creatinine Clr Calc Pharmacy 80.7813; Glomerular Filtration Rate 85.4 mL/min (90-130); Glucose 123 mg/dL (65-115); Osmolality Calculated 294 mOsm/kg (285-295); Potassium 4.5 mmol/L (3.5-5.1); Sodium 141 mmol/L (136-145)
[2024-01-29] MEDS: magnesium lactate 84 mg Tablet PO (08:50)
[2024-01-29] MEDS: multivitamin therapeutic Tablet 1 TAB PO (08:50)
[2024-01-29] MEDS: pantoprazole DR 40 mg Tablet PO (08:51)
[2024-01-29] MEDS: [UNRECOGNIZED DRUG - OTHER] 500 EACH PO (08:51)
[2024-01-29] MEDS: midodrine 5 mg TABLET 10 MG PO ×3 (08:51→21:14)
[2024-01-29] MEDS: lactobacillus 1 Tablet 1 TAB PO ×3 (08:51→21:14)
[2024-01-29] MEDS: metoprolol tartrate 25 mg Tablet 12.5 MG PO ×2 (08:51→17:29)
[2024-01-29] MEDS: apixaban 5 mg Tablet PO ×2 (08:51→21:15)
[2024-01-29] MEDS: cholecalciferol (vitamin D3) 1,000 unit Tablet 2000 UNIT PO (08:51)
--- NOTE | 2024-01-29 09:54 | P.PN_ITS ---
Subjective 2 Subjective: Clinically unchanged Pending LTAC placement Medications: Reviewed: Yes Vitals/I&O/Wt Last Vital Signs Temp 98.0 F 01/29/24 07:43 Pulse 105 H 01/29/24 07:43 Resp 17 01/29/24 07:43 BP 111/73 01/29/24 07:43 Pulse Ox 93 01/29/24 07:43 O2 Del Method Nasal Cannula 01/29/24 07:43 O2 Flow Rate 8 01/29/24 07:43 FiO2 65 01/16/24 11:00 01/28/24 01/29/24 01/29/24 22:59 06:59 14:59 Intake Total 240 / 360 240 / 600 480 / 480 Balance 240 / 360 240 / 600 480 / 480 Weight last 48 hrs Weight 141 lb 8 oz Weight 138 lb 11.2 oz Physical Exam 2 Narrative: General: alert, in mild respiratory distress HEENT: conj clear, EOMI, PERRL, mmm, Neck: supple, no meningismus Heme: no cervical LAP Respiratory: Inspection: No visible deformity of the chest wall Palpation: Trachea is mildly deviated to the right, bilateral symmetric expansion Percussion: Increased dullness left lower lung zone Auscultation: Reduced breath sounds left lower lung zone Cardiovascular: rrr, nl s1s2, no mrg Abdomen: soft, nt, nd, no r/g, bs+ Extremities: pulses +, no edema, no c/c : no CVA tenderness Skin: intact, no rash MSK: no back or neck pain Neurologic: grossly intact Urinary Catheter Management: Francois: Cath Placed During This Visit: yes, but has since been removed by the nurse Reason for Continuing Indwelling Catheter: Decision to DC Catheter Urinary Catheter Date of Insertion: 01/15/24 Urinary Catheter Time of Insertion: 22:33 Date Urinary Catheter Removed: 01/21/24 Time Urinary Catheter Discontinued: 14:45 Data 01/29/24 05:14 01/29/24 05:14 A&P Assessment and plan (1) Pulmonary hypertension: (2) Recurrent left pleural effusion: (3) Goals of care, counseling/discussion: (4) Lung cancer: (5) Acute and chronic respiratory failure ([id number]): (6) Pulmonary embolism: Plan # LLL nodule-s/p SBRT August 2023 # Recurrent hemorrhagic left pleural effusion-cytology 01/07/2024-suspicious for malignancy; insufficient material # CTA with ipsilateral hilar/mediastinal lymphadenopathy 3.5 cm hilar mass- appears metastatic lesion -She is very high risk for bronchoscopy and biopsies-given her significant FiO2 requirements as well as underlying bullous emphysema and pulmonary hypertension. She understands the risks and refuses biopsies. -01/07/2024-s/p first thoracentesis 1500 cc hemorrhagic fluid 01/07/2024-cytology suspicious for malignancy; insufficient material -01/15/2024-s/p second thoracentesis 1200 cc hemorrhagic fluid-cytology Rare atypical cells with prominent nucleoli highly suspicious for malignancy -01/20/2024-inserted indwelling left side Pleurx catheter for recurrent hemorrhagic left pleural fluid placed and 1 L hemorrhagic fluid drained; -Recommended to arrange for home health nurse and drain at least 3 times weekly, -Clinically unchanged but she is at baseline 5 to 6 L supplemental oxygen # Goals of care discussion -I discussed frankly with patient she has high likelihood of metastatic lung cancer with metastatic pleural effusion-she is still in denial of malignancy. Even if it turns out to be malignancy-; she understands that she is not a surgical candidate given her significant bullous emphysema, poor lung function, probable advance stage, although she is still in denial of malignancy diagnosis. Even if it turns out to be malignancy-she does not want chemotherapy or radiation. -Given her overall prognosis-with underlying bullous emphysema with significantly high FiO2 requirement as outpatient (up to 6 to 8 L at rest and 10 to 15 L on ambulation ); underlying pulmonary hypertension; and possible metastatic malignancy-recommended hospice -Patient tells me that she does not want to be hospice yet; recommended consultation with palliative services physician if available # Acute on chronic hypoxic respiratory failure-and inpatient with significant pulmonary hypertension/suspected lung malignancy/recurrent left pleural effusion/significant bullous emphysema/pulmonary embolism -Currently her FiO2 requirement down to 5-6 L. This is her baseline and she requires up to 15 L on exertion as outpatient. -First week of January 2024 CTA showed left pulmonary embolism for which she was on Eliquis-during this admission she was switched to heparin drip-in anticipation for Pleurx catheter; now that Gordon drain was placed-heparin stopped and started on Eliquis Attestations 2 Medical Necessity Statement*: Awaiting social work specialist evaluation for home health arrangements Time Spent in Patient Care: Greater than 35 minutes (>than 50% of time spent in counselling and/or direct pt care on unit) . Coding Level of Care Code Acute Code for Chg Fwd Diagnoses Pulmonary hypertension I27.20 Recurrent left pleural effusion J90 Goals of care, counseling/discussion Z71.89 Lung cancer C34.90 Acute and chronic respiratory failure ([id number]) J96.20 Pulmonary embolism I26.99 Time Spent (min) 42
--- NOTE | 2024-01-29 11:11 | PC.SOCIAL ---
IMM Updated Updated pt on IMM. No questions voiced. Provided pt a copy. Initialed, dated, & timed copy in chart.
[2024-01-29] MEDS: CALCIUM CARBONATE 600 MG TABLET 1200 MG PO (13:19)
[2024-01-29] MEDS: acetaminophen 325 mg Tablet 650 MG PO ×2 (13:20→21:16)
--- NOTE | 2024-01-29 17:16 | P.PN_ITS ---
Subjective 2 Subjective: She reports that her osteoporosis has been bothering her with a bone spur in her back. Request to resume her supplemental calcium in addition to vitamin D. Vitals/I&O/Wt Last Vital Signs Temp 98.2 F 01/29/24 15:45 Pulse 100 01/29/24 15:45 Resp 19 H 01/29/24 15:45 BP 125/76 01/29/24 15:45 Pulse Ox 90 01/29/24 15:45 O2 Del Method Nasal Cannula 01/29/24 15:45 O2 Flow Rate 9 01/29/24 15:45 FiO2 65 01/16/24 11:00 01/29/24 01/29/24 01/29/24 06:59 14:59 22:59 Intake Total 240 / 600 480 / 480 Balance 240 / 600 480 / 480 Weight last 48 hrs Weight 64.183 kg Weight 62.913 kg Physical Exam 2 Const: COMMON NORMALS: patient oriented x3 and alert GENERAL APPEARANCE: c ooperative ORIENTATION/CONSCIOUSNESS: Yes awake HENMT: COMMON NORMALS: oropharynx normal Neck/C-Spine: COMMON NORMALS: no JVD Resp: COMMON NORMALS: normal respiratory effort and clear to auscultation bilaterally AUSCULTATION: clear to auscultation bilaterally and wheezes right lower (mild) Cardio: COMMON NORMALS: no JVD, regular rhythm, S1 normal heart sound present, S2 normal heart sound present and No murmurs present (Cardio) RHYTHM: regular rhythm HEART SOUNDS: S1 normal heart sound present and S2 normal heart sound present GI: COMMON NORMALS: Normal to inspection, nondistended, normoactive bowel sounds present, Soft to palpation and non-tender PALPATION: Yes Soft to palpation Extremity: COMMON NORMALS: no joint enlargement and no pedal edema Neuro: COMMON NORMALS: patient oriented x3 and moves all extremities S ENSORIUM/ORIENTATION: Yes alert Skin: COMMON NORMALS: no rashes or lesions noted GENERAL SKIN EXAM: no rashes or lesions noted Urinary Catheter Management: Francois: Cath Placed During This Visit: yes, but has since been removed by the nurse Reason for Continuing Indwelling Catheter: Decision to DC Catheter Urinary Catheter Date of Insertion: 01/15/24 Urinary Catheter Time of Insertion: 22:33 Date Urinary Catheter Removed: 01/21/24 Time Urinary Catheter Discontinued: 14:45 Data 01/29/24 05:14 01/29/24 05:14 A&P Assessment and plan (1) Pleural effusion: (2) Acute and chronic respiratory failure ([id number]): (3) Lung cancer: (4) Pulmonary embolism: (5) Pulmonary hypertension: (6) Hemoptysis: (7) Physical deconditioning: (8) Muscle wasting: (9) Protein calorie malnutrition: Plan Acute on chronic hypoxic respiratory failure secondary to COPD, hemorrhagic pleural effusion, possible pneumonia Discussed with nursing staff, added order for every other day drainage of Pleurx catheter. Reviewed CBC, maintaining hemoglobin 13. Reviewed BMP. Repeat. Reviewed pulmonology note. Discussed with commercial leasing manager, continue arrangements underway for rehabilitation at [facility]. Continue probiotic. Continue to monitor oxygenation, temps, recheck blood counts. With evidence of hemorrhagic pleural effusion, culture so far negative, exudative pleural effusion by lights criteria Reviewed vitals, CBC, BMP, blood culture, body fluid culture. She feels that the antibiotics are providing her significant indigestion, affecting her appetite, as well as causing bloating which is affecting her breathing. She requests for a probiotic. Discussed with her risk of bloating, constipation with probiotic, she understands, wants to proceed. Added. She request to repeat an x-ray after draining the Pleurx catheter. Reviewed vitals, CBC, BMP. Requested chest x-ray. Follow-up blood counts, chemistry. She has been weak, getting dyspneic and desaturating with exertion. She states she has been managing this by taking breaks, continues to gradually work to try to regain some stamina. Wants to continue rehabilitation. Discussed with commercial leasing manager, discussed options, as per discussion with her she would like to try to go for rehabilitation at [facility]. Arrangements underway. She has been getting more dyspneic as well, discussed with nursing staff, we drained her effusion with Pleurx catheter with additional 350 mL out. Requiring Xanax for anxiety. -With underlying severe lung disease, bullous emphysema, pulm hypertension -History of left lower lobe nodule, status post SBRT August 2023 ? History of bullous emphysema, pulmonary hypertension -Recurrent hemorrhagic left pleural effusion, cytology 01/26 suspicious for malignancy, cytology , rare atypical cells with prominent nucleoli highly suspicious for malignancy -CTA ipsilateral hilar/mediastinal lymphadenopathy, 3.5 cm hilar mass, appears metastatic lesion, high risk for bronchoscopy and biopsies given her significant FiO2 requirements, underlying emphysema pulm hypertension she understands this refused biopsies Continue Eliquis Pleural studies no growth, de-escalate antibiotics to Augmentin Continue sildenafil for pulmonary hypertension at home dosing CT angiogram of the chest CT/CT angio chest 22888 IMPRESSION: 1. Redemonstration of eccentric nonocclusive thrombus within the posterior aspect of the left main pulmonary artery unchanged. 2. 3.5 cm left hilar mass likely malignant in nature, unchanged. 3. Moderate ipsilateral left hilar and mediastinal lymphadenopathy likely metastatic in nature. 4. Large left pleural effusion with adjacent compressive atelectasis left lung, stable. 5. Chronic compression fractures T6 and T10 vertebral bodies unchanged. -CT shows ipsilateral hilar/mediastinal lymphadenopathy 3. 5 cm hilar mass, -01/16/2024 rare atypical cells with prominent however suspicious for malignancy -Goals of care discussion, patient is considering hospice however wants to pursue physical therapy, longterm stay versus long-term care stay for rehab before deciding ? Patient's Pleurx drain was drained on 01/25/2024, ? The issue prolonging her discharge is her overall debility, deconditioning, and her hypoxia, tachycardia and hypotension on exertion ? He has significant deconditioning, generalized weakness which is a concern for her to go home, she wants to go and get rehab at a [facility] facility ? However here when she does work with physical therapy she becomes hypotensive, tachycardic, short of breath O2 saturations drop into the mid 80s requiring up to 15 L ? I had a discussion with her that there might not be an ideal situation I have already diuresed her as much as I can, we drained her Pleurx catheter, it might be that this is because of her underlying severe respiratory failure, and cardiac compensation, her severe underlying pulmonary hypertension her hemorrhagic pleural effusion, ? Overall her prognosis is poor, and I think hospice would be a reasonable option however she is not ready to make this decision, she does not want to have any chemotherapy anymore radiation therapy for her cancer, ? Chayito wants to go to rehab and get stronger, but I have tried my best to make this happen however it is proving to be difficult and possibly unlikely ? I was honest with Chayito and might be likely that she would have to go home, that this would be the only option that would be available to her, but she would have high risk of readmission, and complications, I think the only reasonable option to go home would be at home on hospice, but she is not ready for this Osteoporosis: Resume calcium supplementation. Continue vitamin D. Continue other home medications including levothyroxine, metoprolol physical deconditioning, protien calorie mlanutrition, muscle wasting -secondary to cancer, copd, respiratory failure -ptot -protein shakes DNR/DNI DVT prophylaxis: Eliquis PUD prophylaxis: Protonix 40 mg daily Attestations 2 Medical Necessity Statement*: Continue admission for assessment management of respiratory failure, recurrent effusion, post discharge planning and arrangements. and High MDM includes amount and/or complexity of data reviewed/ordered [ previous or external records, resulted lab(s)/test(s), ordered lab(s)/test(s) and other healthcare professional discussion] as documented Diagnoses Pleural effusion J90 Acute and chronic respiratory failure ([id number]) J96.20 Lung cancer C34.90 Pulmonary embolism I26.99 Pulmonary hypertension I27.20 Hemoptysis R04.2 Physical deconditioning R53.81 Muscle wasting M62.50 Protein calorie malnutrition E46
[2024-01-30] VITALS (16 sets, daily range): BP systolic 103–131; BP diastolic 72–92; PULSE 83–126; RESP 16–22; TEMP 36.4–36.7; O2SAT 85–95
[2024-01-30] MEDS: albuterol 2.5 mg/3 mL Neb INHALATION ×4 (01:29→20:42)
[2024-01-30] MEDS: levothyroxine 150 mcg Tablet PO (06:14)
[2024-01-30] MEDS: multivitamin therapeutic Tablet 1 TAB PO (08:48)
[2024-01-30] MEDS: midodrine 5 mg TABLET 10 MG PO ×3 (08:48→21:22)
[2024-01-30] MEDS: lactobacillus 1 Tablet 1 TAB PO ×3 (08:48→21:23)
[2024-01-30] MEDS: cholecalciferol (vitamin D3) 1,000 unit Tablet 2000 UNIT PO (08:48)
[2024-01-30] MEDS: magnesium lactate 84 mg Tablet PO (08:48)
[2024-01-30] MEDS: CALCIUM CARBONATE 600 MG TABLET 1200 MG PO (08:48)
[2024-01-30] MEDS: pantoprazole DR 40 mg Tablet PO (08:48)
[2024-01-30] MEDS: apixaban 5 mg Tablet PO ×2 (08:48→21:23)
[2024-01-30] MEDS: metoprolol tartrate 25 mg Tablet 12.5 MG PO ×2 (08:49→16:58)
[2024-01-30] MEDS: [UNRECOGNIZED DRUG - OTHER] 500 EACH PO (08:49)
[2024-01-30] MEDS: acetaminophen 325 mg Tablet 650 MG PO ×2 (08:49→16:58)
[2024-01-30 12:17] LABS: Basophils % 0.3 %; Eosinophils % 0.4 %; Hematocrit 41.2 % (36-47); Lymphocytes # 0.4 10^3/uL (0.8-4.8); Lymphocytes % 3.9 %; Mean Corpuscular HGB Conc 31.6 g/dL (30-55); Mean Corpuscular Hemoglobin 29.7 pg (27-33); Mean Corpuscular Volume 94.3 fl (85-98); Monocytes # 0.4 10^3/uL (0.2-0.9); Monocytes % 4.8 %; Neutrophils # 8.03 10^3/uL (1.8-7.7); Neutrophils % 88.2 %; Nucleated Red Blood Cells % 0 %; Platelet Count 193 10^3/cmm (157-399); Red Blood Count 4.37 10^6/uL (3.85-5.65); White Blood Count 9.12 10^3/uL (3.29-11.43)
[2024-01-30 12:40] LABS: Anion Gap 12.4 (5-19); Blood Urea Nitrogen 16 mg/dL (8-23); Calcium 8.7 mg/dL (8.5-10.5); Carbon Dioxide 32 mmol/L (22-29); Chloride 98 mmol/L (98-107); Creatinine Clr Calc Pharmacy 94.3878; Glucose 185 mg/dL (65-115); Osmolality Calculated 292 mOsm/kg (285-295); Potassium 4.4 mmol/L (3.5-5.1); Sodium 138 mmol/L (136-145)
--- NOTE | 2024-01-30 13:50 | P.PN_ITS ---
Subjective 2 Subjective: Clinically unchanged-in fact appearing more weaker day by day Currently on 9 L supplemental oxygen Still not ready for hospice and currently awaiting placement to LTACH Tells me that she had 1 L left pleural fluid drained to did not drain and and that helped her to breathe better Medications: Reviewed: Yes Vitals/I&O/Wt Last Vital Signs Temp 97.8 F 01/30/24 11:46 Pulse 110 H 01/30/24 13:45 Resp 18 01/30/24 13:42 BP 119/88 01/30/24 11:46 Pulse Ox 91 01/30/24 13:42 O2 Del Method High Flow Nasal Cannula 01/30/24 13:42 O2 Flow Rate 8 01/30/24 13:42 FiO2 65 01/16/24 11:00 01/29/24 01/30/24 01/30/24 22:59 06:59 14:59 Intake Total 120 / 600 240 / 840 Output Total 750 / 750 Balance -630 / -150 240 / 90 Weight last 48 hrs Weight 142 lb Weight 141 lb 8 oz Physical Exam 2 Narrative: General: alert, in mild respiratory distress HEENT: conj clear, EOMI, PERRL, mmm, Neck: supple, no meningismus Heme: no cervical LAP Respiratory: Inspection: No visible deformity of the chest wall Palpation: Trachea is mildly deviated to the right, bilateral symmetric expansion Percussion: Increased dullness left lower lung zone Auscultation: Reduced breath sounds left lower lung zone Cardiovascular: rrr, nl s1s2, no mrg Abdomen: soft, nt, nd, no r/g, bs+ Extremities: pulses +, no edema, no c/c : no CVA tenderness Skin: intact, no rash MSK: no back or neck pain Neurologic: grossly intact Urinary Catheter Management: Francois: Cath Placed During This Visit: yes, but has since been removed by the nurse Reason for Continuing Indwelling Catheter: Decision to DC Catheter Urinary Catheter Date of Insertion: 01/15/24 Urinary Catheter Time of Insertion: 22:33 Date Urinary Catheter Removed: 01/21/24 Time Urinary Catheter Discontinued: 14:45 Data 01/30/24 12:08 01/30/24 12:08 Other Labs: Radiology Impressions Thoracentesis Ultrasound 01/16/24 09:05 IMPRESSION: 1. LEFT thoracentesis yielding 1200 cc of fluid. Pleural fluid is dark red consistent with blood. 2. Chest radiograph to follow to evaluate for pneumothorax. 3. Pleural fluid specimen collected for analysis. Chest CTA 01/18/24 08:31 IMPRESSION: 1. Redemonstration of eccentric nonocclusive thrombus within the posterior aspect of the left main pulmonary artery unchanged. 2. 3.5 cm left hilar mass likely malignant in nature, unchanged. 3. Moderate ipsilateral left hilar and mediastinal lymphadenopathy likely metastatic in nature. 4. Large left pleural effusion with adjacent compressive atelectasis left lung, stable. 5. Chronic compression fractures T6 and T10 vertebral bodies unchanged. COMMENTS: The presence of pulmonary emphysema on CT is an independent risk factor for lung cancer. In the absence of a history or active diagnosis of lung cancer, it is recommended that this patient with emphysema be evaluated for enrollment in a low dose CT lung cancer screening program. Chest X-Ray 01/27/24 16:30 IMPRESSION: 1. No evidence of pneumothorax. 2. Moderate left-sided pleural effusion with drainage catheter in place. 3. Severe emphysematous changes. 4. 3 cm nodular opacity in the right costophrenic sulcus raising the question of neoplasm. Laboratory Results WBC 9.12 10^3/uL (3.29-11.43) 01/30/24 12:08 RBC 4.37 10^6/uL (3.85-5.65) 01/30/24 12:08 Hgb 13.00 g/dL (11.27-16.99) 01/30/24 12:08 Hct 41.2 % (36-47) 01/30/24 12:08 MCV 94.3 fl (85-98) 01/30/24 12:08 MCH 29.7 pg (27-33) 01/30/24 12:08 MCHC 31.6 g/dL (30-55) 01/30/24 12:08 RDW 15.0 % (12.1-15.1) 01/30/24 12:08 Plt Count 193 10^3/cmm (157-399) 01/30/24 12:08 MPV 10.0 fL (7.4-10.4) 01/30/24 12:08 Neut % (Auto) 88.2 % 01/30/24 12:08 Lymph % (Auto) 3.9 % 01/30/24 12:08 [place] % (Auto) 4.8 % 01/30/24 12:08 Eos % (Auto) 0.4 % 01/30/24 12:08 Baso % (Auto) 0.3 % 01/30/24 12:08 Neut # (Auto) 8.03 10^3/uL (1.8-7.7) H 01/30/24 12:08 Lymph # (Auto) 0.4 10^3/uL (0.8-4.8) L 01/30/24 12:08 [place] # (Auto) 0.4 10^3/uL (0.2-0.9) 01/30/24 12:08 Eos # (Auto) 0.0 10^3/uL (0.0-0.8) 01/30/24 12:08 Baso # (Auto) 0.0 10^3/uL (0.0-0.1) 01/30/24 12:08 Nucleated RBC % (auto) 0 % 01/30/24 12:08 Nucleated RBCs # 0.0 /100WBC 01/30/24 12:08 PT 14.80 SECONDS (12.1-14.9) 01/16/24 11:58 INR 1.13 (0.8-1.2) 01/16/24 11:58 APTT 49.3 SECONDS (23.9-36.7) H 01/20/24 10:52 Specimen Type Arterial 01/16/24 04:57 Sample Site Brachial, right 01/16/24 04:57 ABG pH 7.41 (7.35-7.45) 01/16/24 04:57 ABG pCO2 50.6 mmHg (35-45) H 01/16/24 04:57 ABG pO2 73.7 mmHg (80.0-100.0) L 01/16/24 04:57 ABG PO2/FiO2 Ratio 0 01/15/24 20:15 ABG HCO3 32.0 mmol/L (22-26) H 01/16/24 04:57 ABG O2 Saturation 95.4 01/16/24 04:57 ABG Base Excess 6.1 mmol/L (-2.0-2.0) H 01/16/24 04:57 Quirino Test N/a 01/16/24 04:57 A-a O2 Gradient 1.8 mmHg (5-10) L 01/16/24 04:57 Hematocrit 40.1 % (37-47) 01/16/24 04:57 Hgb O2 Saturation 93.8 % (95-100) L 01/16/24 04:57 Carboxyhemoglobin 1.4 %THgb (0.4-20.1) 01/16/24 04:57 Methemoglobin 0.2 % (0.4-1.5) L 01/16/24 04:57 Total Hemoglobin 13.1 g/dL (12-16) 01/16/24 04:57 Sodium 140.0 mmol/L (131-143) 01/16/24 04:57 Potassium 3.7 mmol/L (3.5-5.0) 01/16/24 04:57 Glucose 152.0 mg/dL (70-115) H 01/16/24 04:57 Ionized Calcium 1.1 mmol/L (1.1-1.4) 01/16/24 04:57 O2 Delivery Device Nc 01/16/24 04:57 O2 Liters/Min 10.0 % 01/16/24 04:57 FiO2 65.0 % 01/15/24 20:15 Hand Spinner ID [email or web address] 01/16/24 04:57 Sodium 138 mmol/L (136-145) 01/30/24 12:08 Potassium 4.4 mmol/L (3.5-5.1) 01/30/24 12:08 Chloride 98 mmol/L (98-107) 01/30/24 12:08 Carbon Dioxide 32 mmol/L (22-29) H 01/30/24 12:08 Anion Gap 12.4 (5-19) 01/30/24 12:08 BUN 16 mg/dL (8-23) 01/30/24 12:08 Creatinine 0.6 mg/dL (0.5-0.9) 01/30/24 12:08 GFR Calculation 102.0 mL/min (90-130) 01/30/24 12:08 Glucose 185 mg/dL (65-115) H 01/30/24 12:08 Estimat Average Glucose 100 01/16/24 04:27 Hemoglobin A1c 5.1 % (4.0-6.0) 01/16/24 04:27 Calculated Osmolality 292 mOsm/kg (285-295) 01/30/24 12:08 Lactic Acid 1.0 mmol/L (0.5-2.2) 01/19/24 14:19 Calcium 8.7 mg/dL (8.5-10.5) 01/30/24 12:08 Phosphorus 4.3 mg/dL (2.5-4.5) 01/16/24 04:27 Magnesium 2.2 mg/dL (1.7-2.3) 01/16/24 04:27 Iron 42 ug/dL (37-145) 01/15/24 18:40 TIBC 242 mcg/dl 01/15/24 18:40 % Saturation 17.3 % (20-50) L 01/15/24 18:40 Unsat Iron Binding 200 ug/dL (112-347) 01/15/24 18:40 Total Bilirubin 0.3 mg/dL (0.15-1.2) 01/16/24 04:27 AST 18 U/L (0-32) 01/16/24 04:27 ALT 13 U/L (0-33) 01/16/24 04:27 Alkaline Phosphatase 70 U/L (35-105) 01/16/24 04:27 Lactate Dehydrogenase 324 U/L (135-214) H 01/17/24 07:46 Troponin T Baseline 23 ng/L (0-10) H 01/15/24 16:40 Troponin T 120 Minute 6.00 ng/L (0-10) 01/15/24 18:39 Delta Troponin T -17.00 ABS# (0-10) L 01/15/24 18:39 Troponin T Hi Sens 6Hr 18.59 ng/L (0-10) H 01/15/24 22:47 Troponin T Hi Sens 6Hr Delta -4.41 ng/L (0-12) L 01/15/24 22:47 C-Reactive Protein 58.0 mg/L (0.0-4.9) H 01/20/24 05:00 NT-Pro-B Natriuret Pep 417 pg/mL (0-125) H 01/24/24 11:36 Total Protein 6.2 g/dL (6.6-8.7) L 01/16/24 04:27 Albumin 3.0 g/dL (3.5-5.2) L 01/16/24 04:27 Globulin 3.2 g/dL (1.3-4.6) 01/16/24 04:27 Triglycerides 81 mg/dL (0-150) 01/16/24 04:27 Cholesterol 176 mg/dL (0-200) 01/16/24 04:27 LDL Cholesterol, Calc 103 mg/dL (50-129) 01/16/24 04:27 HDL Cholesterol 57 mg/dL (60-100) L 01/16/24 04:27 LDL/HDL Ratio 1.81 RATIO (0.00-3.22) 01/16/24 04:27 Cholesterol/HDL Ratio 3.09 mg/dL (0.0-4.40) 01/16/24 04:27 Vitamin B12 589 pg/mL (232-1245) 01/15/24 18:40 Folate > 20.0 ng/mL (4.8-37.3) 01/16/24 04:27 Procalcitonin 0.05 ng/mL (0-0.5) 01/20/24 05:00 TSH 0.59 uIU/mL (0.27-4.20) 01/15/24 18:40 Urine Color Yellow (Yellow) 01/16/24 19:15 Urine Appearance Clear (CLEAR) 01/16/24 19:15 Urine pH 5 (5-7) 01/16/24 19:15 Ur Specific [place] 1.005 (1.005-1.030) 01/16/24 19:15 Urine Protein Neg (Negative) 01/16/24 19:15 Urine Glucose (UA) Norm (Normal) 01/16/24 19:15 Urine Ketones Negative (Negative) 01/16/24 19:15 Urine Blood Neg (Negative) 01/16/24 19:15 Urine Nitrate Negative (Negative) 01/16/24 19:15 Urine Bilirubin Neg (Negative) 01/16/24 19:15 Urine Urobilinogen Norm mg/dL (Negative) 01/16/24 19:15 Ur Leukocyte Esterase 1+ (Negative) H 01/16/24 19:15 Urine RBC 0-4 /hpf (0-2) H 01/16/24 19:15 Urine WBC 21-50 /hpf (0-5) 01/16/24 19:15 Ur Squamous Epith Cells None /hpf (0-5) 01/16/24 19:15 Uric Acid Crystals 0-4 /hpf 01/16/24 19:15 Amorphous Sediment Not Reportable 01/16/24 19:15 Urine Bacteria Trace /hpf (NONE) 01/16/24 19:15 Fluid Color Red 01/16/24 14:00 Fluid Appearance Cloudy 01/16/24 14:00 Fluid WBC 459 /uL 01/16/24 14:00 Fluid RBC 92.000 10^3/uL 01/16/24 14:00 Fluid Hematocrit 1.0 % 01/16/24 14:00 Fld Polynuclear WBCs # 0.092 01/16/24 14:00 Fld Polynuclear WBCs % 20.100 % 01/16/24 14:00 Fl Mononucl WBCs #(Auto) 0.367 01/16/24 14:00 Fl Mononuclear % Auto 79.900 % 01/16/24 14:00 Fld Crystal Laterality Left lower 01/16/24 14:00 Fluid Albumin 2.1 g/dL 01/16/24 14:00 Fluid Creatinine 1.0 (0.5-0.9) H 01/16/24 14:00 Pleural pH 9.00 (6.5-7.5) H 01/16/24 14:00 Pleural Total Protein 3.4 g/dL 01/16/24 14:00 Pleural LDH 488 U/L 01/16/24 14:00 Pleural Glucose 133.0 mg/dL 01/16/24 14:00 Pleural Amylase 12 U/L 01/16/24 14:00 Pleural Triglycerides 28 mg/dL 01/16/24 14:00 Vancomycin Trough 22.0 ug/mL (10-15) H 01/17/24 07:46 C. difficile (PCR) Negative (Negative) 01/19/24 11:43 MRSA (PCR) Not detected (NOT DETECTED) 01/16/24 19:18 A&P Assessment and plan (1) Pulmonary hypertension: (2) Recurrent left pleural effusion: (3) Goals of care, counseling/discussion: (4) Lung cancer: (5) Acute and chronic respiratory failure ([id number]): (6) Pulmonary embolism: Plan # LLL nodule-s/p SBRT August 2023 # Recurrent hemorrhagic left pleural effusion-cytology 01/07/2024-suspicious for malignancy; insufficient material # CTA with ipsilateral hilar/mediastinal lymphadenopathy 3.5 cm hilar mass- appears metastatic lesion -She is very high risk for bronchoscopy and biopsies-given her significant FiO2 requirements as well as underlying bullous emphysema and pulmonary hypertension. She understands the risks and refuses biopsies. -01/07/2024-s/p first thoracentesis 1500 cc hemorrhagic fluid 01/07/2024-cytology suspicious for malignancy; insufficient material -01/15/2024-s/p second thoracentesis 1200 cc hemorrhagic fluid-cytology Rare atypical cells with prominent nucleoli highly suspicious for malignancy -01/20/2024-inserted indwelling left side Pleurx catheter for recurrent hemorrhagic left pleural fluid placed and 1 L hemorrhagic fluid drained; -Recommended to arrange for home health nurse and drain at least 3 times weekly, -Clinically unchanged and worsening FiO2 requirements currently requiring 7 to 8 L supplemental oxygen # Goals of care discussion -I discussed frankly with patient she has high likelihood of metastatic lung cancer with metastatic pleural effusion-she is still in denial of malignancy. Even if it turns out to be malignancy-; she understands that she is not a surgical candidate given her significant bullous emphysema, poor lung function, probable advance stage, although she is still in denial of malignancy diagnosis. Even if it turns out to be malignancy-she does not want chemotherapy or radiation. -Given her overall prognosis-with underlying bullous emphysema with significantly high FiO2 requirement as outpatient (up to 6 to 8 L at rest and 10 to 15 L on ambulation ); underlying pulmonary hypertension; and possible metastatic malignancy-recommended hospice -Patient tells me that she does not want to be hospice yet; patient wants to go to LTAC # Acute on chronic hypoxic respiratory failure-and inpatient with significant pulmonary hypertension/suspected lung malignancy/recurrent left pleural effusion/significant bullous emphysema/pulmonary embolism -Currently her FiO2 requirement down to 5-6 L. This is her baseline and she requires up to 15 L on exertion as outpatient. -First week of January 2024 CTA showed left pulmonary embolism for which she was on Eliquis-during this admission she was switched to heparin drip-in anticipation for Pleurx catheter; now that Jermaine drain was placed-heparin stopped and started on Eliquis Attestations 2 Medical Necessity Statement*: Awaiting placement Coding Level of Care Code Acute Code for Chg Fwd Diagnoses Pulmonary hypertension I27.20 Recurrent left pleural effusion J90 Goals of care, counseling/discussion Z71.89 Lung cancer C34.90 Acute and chronic respiratory failure ([id number]) J96.20 Pulmonary embolism I26.99 Time Spent (min) 41
--- NOTE | 2024-01-30 13:59 | PM.PN ---
Subjective Subjective: Her oxygen saturation has been soft in mid to high 80s, increased oxygen flow slightly up to 9 L. He has been feeling a little weaker today, worried about falling. Requested to replace Francois catheter for now. Vitals/I&O/Wt Last Vital Signs Temp 97.8 F 01/30/24 11:46 Pulse 110 H 01/30/24 13:45 Resp 18 01/30/24 13:42 BP 119/88 01/30/24 11:46 Pulse Ox 91 01/30/24 13:42 O2 Del Method High Flow Nasal Cannula 01/30/24 13:42 O2 Flow Rate 8 01/30/24 13:42 FiO2 65 01/16/24 11:00 01/29/24 01/30/24 01/30/24 22:59 06:59 14:59 Intake Total 120 / 600 240 / 840 Output Total 750 / 750 Balance -630 / -150 240 / 90 Weight last 48 hrs Weight 64.41 kg Weight 64.183 kg Physical Exam Const: COMMON NORMALS: patient oriented x3 and alert GENERAL APPEARANCE: cooperative ORIENTATION/CONSCIOUSNESS: Yes awake HENMT: COMMON NORMALS: oropharynx normal Neck/C-Spine: COMMON NORMALS: no JVD Resp: AUSCULTATION: diminished lung sounds on the left in the lower lung philippe Cardio: COMMON NORMALS: no JVD, regular rhythm, S1 normal heart sound present, S2 normal heart sound present and No murmurs present (Cardio) RHYTHM: regular rhythm HEART SOUNDS: S1 normal heart sound present and S2 normal heart sound present GI: COMMON NORMALS: Normal to inspection, nondistended, normoactive bowel sounds present, Soft to palpation and non-tender PALPATION: Yes Soft to palpation Extremity: COMMON NORMALS: no joint enlargement and no pedal edema Neuro: COMMON NORMALS: patient oriented x3 and moves all extremities SENSORIUM/ORIENTATION: Yes alert Skin: COMMON NORMALS: no rashes or lesions noted GENERAL SKIN EXAM: no rashes or lesions noted Urinary Catheter Management: Francois: Cath Placed During This Visit: yes, but has since been removed by the nurse Reason for Continuing Indwelling Catheter: Decision to DC Catheter Urinary Catheter Date of Insertion: 01/15/24 Urinary Catheter Time of Insertion: 22:33 Date Urinary Catheter Removed: 01/21/24 Time Urinary Catheter Discontinued: 14:45 Data 01/30/24 12:08 01/30/24 12:08 A&P Assessment and plan (1) Pleural effusion: (2) Acute and chronic respiratory failure ([id number]): (3) Lung cancer: (4) Pulmonary embolism: (5) Pulmonary hypertension: (6) Hemoptysis: (7) Physical deconditioning: (8) Muscle wasting: (9) Protein calorie malnutrition: Plan Acute on chronic hypoxic respiratory failure secondary to COPD, hemorrhagic pleural effusion, possible pneumonia Additional 550 mL drainage from PleurX catheter yesterday. Reassess volume status. Reviewed CBC, BMP. Hemoglobin 13. Platelets normal. Reassess oxygenation, plan for repeat drainage tomorrow. Reviewed pulmonology note. Discussed with mattress spring encaser - arrangements underway for rehabilitation at [facility]. She is feeling weaker today, requested to temporarily replace Francois. Continue probiotic. Continue to monitor oxygenation, temps, recheck blood counts. With evidence of hemorrhagic pleural effusion, culture so far negative, exudative pleural effusion by lights criteria Reviewed vitals, CBC, BMP, blood culture, body fluid culture. She feels that the antibiotics are providing her significant indigestion, affecting her appetite, as well as causing bloating which is affecting her breathing. She requests for a probiotic. Discussed with her risk of bloating, constipation with probiotic, she understands, wants to proceed. Added. She request to repeat an x-ray after draining the Pleurx catheter. Reviewed vitals, CBC, BMP. Requested chest x-ray. Follow-up blood counts, chemistry. She has been weak, getting dyspneic and desaturating with exertion. She states she has been managing this by taking breaks, continues to gradually work to try to regain some stamina. Wants to continue rehabilitation. Discussed with mattress spring encaser, discussed options, as per discussion with her she would like to try to go for rehabilitation at [facility]. Arrangements underway. She has been getting more dyspneic as well, discussed with nursing staff, we drained her effusion with Pleurx catheter with additional 350 mL out. Requiring Xanax for anxiety. -With underlying severe lung disease, bullous emphysema, pulm hypertension -History of left lower lobe nodule, status post SBRT August 2023 ? History of bullous emphysema, pulmonary hypertension -Recurrent hemorrhagic left pleural effusion, cytology 01/26 suspicious for malignancy, cytology , rare atypical cells with prominent nucleoli highly suspicious for malignancy -CTA ipsilateral hilar/mediastinal lymphadenopathy, 3.5 cm hilar mass, appears metastatic lesion, high risk for bronchoscopy and biopsies given her significant FiO2 requirements, underlying emphysema pulm hypertension she understands this refused biopsies Continue Eliquis Pleural studies no growth, de-escalate antibiotics to Augmentin Continue sildenafil for pulmonary hypertension at home dosing CT angiogram of the chest CT/CT angio chest 17678 IMPRESSION: 1. Redemonstration of eccentric nonocclusive thrombus within the posterior aspect of the left main pulmonary artery unchanged. 2. 3.5 cm left hilar mass likely malignant in nature, unchanged. 3. Moderate ipsilateral left hilar and mediastinal lymphadenopathy likely metastatic in nature. 4. Large left pleural effusion with adjacent compressive atelectasis left lung, stable. 5. Chronic compression fractures T6 and T10 vertebral bodies unchanged. -CT shows ipsilateral hilar/mediastinal lymphadenopathy 3. 5 cm hilar mass, -01/16/2024 rare atypical cells with prominent however suspicious for malignancy -Goals of care discussion, patient is considering hospice however wants to pursue physical therapy, shelter stay versus long-term care stay for rehab before deciding ? Patient's Pleurx drain was drained on 01/25/2024, ? The issue prolonging her discharge is her overall debility, deconditioning, and her hypoxia, tachycardia and hypotension on exertion ? He has significant deconditioning, generalized weakness which is a concern for her to go home, she wants to go and get rehab at a custodial facility ? However here when she does work with physical therapy she becomes hypotensive, tachycardic, short of breath O2 saturations drop into the mid 80s requiring up to 15 L ? I had a discussion with her that there might not be an ideal situation I have already diuresed her as much as I can, we drained her Pleurx catheter, it might be that this is because of her underlying severe respiratory failure, and cardiac compensation, her severe underlying pulmonary hypertension her hemorrhagic pleural effusion, ? Overall her prognosis is poor, and I think hospice would be a reasonable option however she is not ready to make this decision, she does not want to have any chemotherapy anymore radiation therapy for her cancer, ? Chayito wants to go to rehab and get stronger, but I have tried my best to make this happen however it is proving to be difficult and possibly unlikely ? I was honest with Chayito and might be likely that she would have to go home, that this would be the only option that would be available to her, but she would have high risk of readmission, and complications, I think the only reasonable option to go home would be at home on hospice, but she is not ready for this Osteoporosis: Resume calcium supplementation. Continue vitamin D. Continue other home medications including levothyroxine, metoprolol physical deconditioning, protien calorie mlanutrition, muscle wasting -secondary to cancer, copd, respiratory failure -ptot -protein shakes DNR/DNI DVT prophylaxis: Eliquis PUD prophylaxis: Protonix 40 mg daily Attestations Medical Necessity Statement*: Continue admission for assessment management of respiratory failure, recurrent effusion, post discharge planning and arrangements. and Moderate MDM includes amount and/or complexity of data reviewed/ordered [ resulted lab(s)/test(s), ordered lab(s)/test(s) and other healthcare professional discussion] as documented Diagnoses Pleural effusion J90 Acute and chronic respiratory failure ([id number]) J96.20 Lung cancer C34.90 Pulmonary embolism I26.99 Pulmonary hypertension I27.20 Hemoptysis R04.2 Physical deconditioning R53.81 Muscle wasting M62.50 Protein calorie malnutrition E46
[2024-01-30] MEDS: nystatin 100,000 unit/mL UDC 5 mL 100000 UNIT PO (21:23)
[2024-01-30] MEDS: simethicone 80 mg Chew PO (21:23)
[2024-01-31] VITALS (12 sets, daily range): BP systolic 108–126; BP diastolic 71–88; PULSE 90–114; RESP 16–22; TEMP 36.6–37.1; O2SAT 86–95
[2024-01-31] MEDS: albuterol 2.5 mg/3 mL Neb INHALATION ×2 (02:10→07:49)
[2024-01-31 05:25] LABS: Basophils % 0.3 %; Eosinophils % 0.3 %; Hematocrit 40.2 % (36-47); Lymphocytes # 0.4 10^3/uL (0.8-4.8); Lymphocytes % 4.2 %; Mean Corpuscular HGB Conc 30.6 g/dL (30-55); Mean Corpuscular Hemoglobin 29.8 pg (27-33); Mean Corpuscular Volume 97.3 fl (85-98); Mean Platelet Volume 10.4 fL (7.4-10.4); Monocytes # 0.5 10^3/uL (0.2-0.9); Monocytes % 5.3 %; Neutrophils # 7.86 10^3/uL (1.8-7.7); Neutrophils % 88.3 %; Nucleated Red Blood Cells % 0 %; Platelet Count 199 10^3/cmm (157-399); Red Blood Count 4.13 10^6/uL (3.85-5.65)
[2024-01-31 05:45] LABS: Anion Gap 12.8 (5-19); Blood Urea Nitrogen 15 mg/dL (8-23); Calcium 8.8 mg/dL (8.5-10.5); Carbon Dioxide 32 mmol/L (22-29); Chloride 101 mmol/L (98-107); Creatinine Clr Calc Pharmacy 94.3878; Glucose 103 mg/dL (65-115); Osmolality Calculated 293 mOsm/kg (285-295); Potassium 4.8 mmol/L (3.5-5.1); Sodium 141 mmol/L (136-145)
[2024-01-31] MEDS: levothyroxine 150 mcg Tablet PO (06:20)
[2024-01-31] MEDS: apixaban 5 mg Tablet PO ×2 (08:54→21:12)
[2024-01-31] MEDS: pantoprazole DR 40 mg Tablet PO (08:54)
[2024-01-31] MEDS: cholecalciferol (vitamin D3) 1,000 unit Tablet 2000 UNIT PO (08:54)
[2024-01-31] MEDS: multivitamin therapeutic Tablet 1 TAB PO (08:54)
[2024-01-31] MEDS: midodrine 5 mg TABLET 10 MG PO ×3 (08:54→21:12)
[2024-01-31] MEDS: acetaminophen 325 mg Tablet 650 MG PO ×2 (08:54→21:17)
[2024-01-31] MEDS: CALCIUM CARBONATE 600 MG TABLET 1200 MG PO (08:54)
[2024-01-31] MEDS: magnesium lactate 84 mg Tablet PO (08:54)
[2024-01-31] MEDS: lactobacillus 1 Tablet 1 TAB PO ×3 (08:54→21:12)
[2024-01-31] MEDS: metoprolol tartrate 25 mg Tablet 12.5 MG PO ×2 (08:55→17:55)
[2024-01-31] MEDS: [UNRECOGNIZED DRUG - OTHER] 500 EACH PO (08:55)
--- NOTE | 2024-01-31 09:56 | PC.SOCIAL ---
IMM Updated Updated pt on IMM. No questions voiced. Provided pt a copy. Initialed, dated, & timed copy in chart.
[2024-01-31] MEDS: ipratropium-albuterol 3 mL Neb INHALATION (18:18)
--- NOTE | 2024-01-31 20:27 | P.PN_ITS ---
Subjective 2 Subjective: Denies additional changes. Requested still keep Francois in place for now. Discussed the risk of infection. She verbalized understanding. Had a soft bowel movement but not watery diarrhea. He is aware to let us know in case of progression to latter. Vitals/I&O/Wt Last Vital Signs Temp 98.8 F 01/31/24 20:00 Pulse 114 H 01/31/24 20:00 Resp 17 01/31/24 20:00 BP 108/72 01/31/24 20:00 Pulse Ox 90 01/31/24 20:00 O2 Del Method Nasal Cannula 01/31/24 20:00 O2 Flow Rate 10 01/31/24 18:20 FiO2 65 01/16/24 11:00 01/31/24 01/31/24 01/31/24 06:59 14:59 22:59 Intake Total 120 / 900 240 / 240 Output Total 200 / 500 300 / 300 Balance -80 / 400 240 / 240 -300 / -60 Weight last 48 hrs Weight 66.996 kg Weight 64.41 kg Physical Exam 2 Const: COMMON NORMALS: patient oriented x3 and alert GENERAL APPEARANCE: c ooperative ORIENTATION/CONSCIOUSNESS: Yes awake HENMT: COMMON NORMALS: oropharynx normal Neck/C-Spine: COMMON NORMALS: no JVD Resp: COMMON NORMALS: normal respiratory effort and clear to auscultation bilaterally AUSCULTATION: clear to auscultation bilaterally, wheezes right lower (mild) and diminished lung sounds on the left in the lower lung philippe Cardio: COMMON NORMALS: no JVD, regular rhythm, S1 normal heart sound present, S2 normal heart sound present and No murmurs present (Cardio) RHYTHM: regular rhythm HEART SOUNDS: S1 normal heart sound present and S2 normal heart sound present GI: COMMON NORMALS: Normal to inspection, nondistended, normoactive bowel sounds present, Soft to palpation and non-tender PALPATION: Yes Soft to palpation Extremity: COMMON NORMALS: no joint enlargement and no pedal edema Neuro: COMMON NORMALS: patient oriented x3 and moves all extremities S ENSORIUM/ORIENTATION: Yes alert Skin: COMMON NORMALS: no rashes or lesions noted GENERAL SKIN EXAM: no rashes or lesions noted Urinary Catheter Management: Francois: Cath Placed During This Visit: yes, but has since been removed by the nurse Reason for Continuing Indwelling Catheter: Other Urinary Catheter Date of Insertion: 01/30/24 Urinary Catheter Time of Insertion: 15:00 Date Urinary Catheter Removed: 01/21/24 Time Urinary Catheter Discontinued: 14:45 Data 01/31/24 04:36 01/31/24 04:36 A&P Assessment and plan (1) Pleural effusion: (2) Acute and chronic respiratory failure ([id number]): (3) Lung cancer: (4) Pulmonary embolism: (5) Pulmonary hypertension: (6) Hemoptysis: (7) Physical deconditioning: (8) Muscle wasting: (9) Protein calorie malnutrition: Plan Acute on chronic hypoxic respiratory failure secondary to COPD, hemorrhagic pleural effusion, possible pneumonia. Further chest tube drainage today, 300 mL. Reviewed vitals, CBC, BMP. Soft stools but not watery diarrhea. Monitor. Discussed with shoe parts caser, pending arrangements for LTAC. Reviewed pulmonology note. Additional 550 mL drainage from PleurX catheter yesterday. Reassess volume status. Reviewed CBC, BMP. Hemoglobin 13. Platelets normal. Reassess oxygenation, plan for repeat drainage tomorrow. Reviewed pulmonology note. Discussed with shoe parts caser - arrangements underway for rehabilitation at [facility]. She is feeling weaker today, requested to temporarily replace Francois. Continue probiotic. Continue to monitor oxygenation, temps, recheck blood counts. Soft stool: But without watery diarrhea. At risk of C. difficile with antibiotic. Monitor for worsening. Continue probiotic.She has been refusing antibiotic, will discontinue. With evidence of hemorrhagic pleural effusion, culture so far negative, exudative pleural effusion by lights criteria Reviewed vitals, CBC, BMP, blood culture, body fluid culture. She feels that the antibiotics are providing her significant indigestion, affecting her appetite, as well as causing bloating which is affecting her breathing. She requests for a probiotic. Discussed with her risk of bloating, constipation with probiotic, she understands, wants to proceed. Added. She request to repeat an x-ray after draining the Pleurx catheter. Reviewed vitals, CBC, BMP. Requested chest x-ray. Follow-up blood counts, chemistry. She has been weak, getting dyspneic and desaturating with exertion. She states she has been managing this by taking breaks, continues to gradually work to try to regain some stamina. Wants to continue rehabilitation. Discussed with shoe parts caser, discussed options, as per discussion with her she would like to try to go for rehabilitation at [facility]. Arrangements underway. She has been getting more dyspneic as well, discussed with nursing staff, we drained her effusion with Pleurx catheter with additional 350 mL out. Requiring Xanax for anxiety. -With underlying severe lung disease, bullous emphysema, pulm hypertension -History of left lower lobe nodule, status post SBRT August 2023 ? History of bullous emphysema, pulmonary hypertension -Recurrent hemorrhagic left pleural effusion, cytology 01/26 suspicious for malignancy, cytology , rare atypical cells with prominent nucleoli highly suspicious for malignancy -CTA ipsilateral hilar/mediastinal lymphadenopathy, 3.5 cm hilar mass, appears metastatic lesion, high risk for bronchoscopy and biopsies given her significant FiO2 requirements, underlying emphysema pulm hypertension she understands this refused biopsies Continue Eliquis Pleural studies no growth, de-escalate antibiotics to Augmentin Continue sildenafil for pulmonary hypertension at home dosing CT angiogram of the chest CT/CT angio chest 23859 IMPRESSION: 1. Redemonstration of eccentric nonocclusive thrombus within the posterior aspect of the left main pulmonary artery unchanged. 2. 3.5 cm left hilar mass likely malignant in nature, unchanged. 3. Moderate ipsilateral left hilar and mediastinal lymphadenopathy likely metastatic in nature. 4. Large left pleural effusion with adjacent compressive atelectasis left lung, stable. 5. Chronic compression fractures T6 and T10 vertebral bodies unchanged. -CT shows ipsilateral hilar/mediastinal lymphadenopathy 3. 5 cm hilar mass, -01/16/2024 rare atypical cells with prominent however suspicious for malignancy -Goals of care discussion, patient is considering hospice however wants to pursue physical therapy, long term stay versus long-term care stay for rehab before deciding ? Patient's Pleurx drain was drained on 01/25/2024, ? The issue prolonging her discharge is her overall debility, deconditioning, and her hypoxia, tachycardia and hypotension on exertion ? He has significant deconditioning, generalized weakness which is a concern for her to go home, she wants to go and get rehab at a [facility] facility ? However here when she does work with physical therapy she becomes hypotensive, tachycardic, short of breath O2 saturations drop into the mid 80s requiring up to 15 L ? I had a discussion with her that there might not be an ideal situation I have already diuresed her as much as I can, we drained her Pleurx catheter, it might be that this is because of her underlying severe respiratory failure, and cardiac compensation, her severe underlying pulmonary hypertension her hemorrhagic pleural effusion, ? Overall her prognosis is poor, and I think hospice would be a reasonable option however she is not ready to make this decision, she does not want to have any chemotherapy anymore radiation therapy for her cancer, ? Chayito wants to go to rehab and get stronger, but I have tried my best to make this happen however it is proving to be difficult and possibly unlikely ? I was honest with Chayito and might be likely that she would have to go home, that this would be the only option that would be available to her, but she would have high risk of readmission, and complications, I think the only reasonable option to go home would be at home on hospice, but she is not ready for this Osteoporosis: Resume calcium supplementation. Continue vitamin D. Continue other home medications including levothyroxine, metoprolol physical deconditioning, protien calorie mlanutrition, muscle wasting -secondary to cancer, copd, respiratory failure -ptot -protein shakes DNR/DNI DVT prophylaxis: Eliquis PUD prophylaxis: Protonix 40 mg daily Attestations 2 Medical Necessity Statement*: Continue admission for assessment management of respiratory failure, recurrent effusion, post discharge planning and arrangements. and High MDM includes amount and/or complexity of data reviewed/ordered [ previous or external records, resulted lab(s)/test(s) and other healthcare professional discussion] as documented Diagnoses Pleural effusion J90 Acute and chronic respiratory failure ([id number]) J96.20 Lung cancer C34.90 Pulmonary embolism I26.99 Pulmonary hypertension I27.20 Hemoptysis R04.2 Physical deconditioning R53.81 Muscle wasting M62.50 Protein calorie malnutrition E46
[2024-01-31] MEDS: nystatin 100,000 unit/mL UDC 5 mL 100000 UNIT PO (21:12)
[2024-01-31] MEDS: simethicone 80 mg Chew PO (21:17)
[2024-02-01] VITALS (12 sets, daily range): BP systolic 111–133; BP diastolic 75–88; PULSE 89–121; RESP 16–25; TEMP 36.5–36.8; O2SAT 80–92
[2024-02-01] MEDS: albuterol 2.5 mg/3 mL Neb INHALATION ×4 (02:08→21:15)
[2024-02-01 05:36] LABS: Basophils % 0.4 %; Eosinophils % 0.4 %; Hematocrit 43.3 % (36-47); Lymphocytes # 0.4 10^3/uL (0.8-4.8); Lymphocytes % 4.5 %; Mean Corpuscular HGB Conc 30.3 g/dL (30-55); Mean Corpuscular Hemoglobin 29.8 pg (27-33); Mean Corpuscular Volume 98.4 fl (85-98); Mean Platelet Volume 10.5 fL (7.4-10.4); Monocytes # 0.5 10^3/uL (0.2-0.9); Monocytes % 5.2 %; Neutrophils # 8.25 10^3/uL (1.8-7.7); Neutrophils % 88.2 %; Nucleated Red Blood Cells % 0 %; Platelet Count 220 10^3/cmm (157-399); Red Cell Distribution Width 15.4 % (12.1-15.1); White Blood Count 9.36 10^3/uL (3.29-11.43)
[2024-02-01] MEDS: NON-FORMULARY MEDICATION (Alendronate [Fosamax] 70 mg Tablet) 70 EACH PO (05:57)
[2024-02-01 05:58] LABS: Blood Urea Nitrogen 16 mg/dL (8-23); Carbon Dioxide 30 mmol/L (22-29); Chloride 100 mmol/L (98-107); Creatinine Clr Calc Pharmacy 80.2918; Glomerular Filtration Rate 85.4 mL/min (90-130); Glucose 98 mg/dL (65-115); Osmolality Calculated 289 mOsm/kg (285-295); Sodium 139 mmol/L (136-145)
[2024-02-01 05:59] LABS: Anion Gap 13.9 (5-19); Potassium 4.9 mmol/L (3.5-5.1)
[2024-02-01] MEDS: levothyroxine 150 mcg Tablet PO (06:36)
[2024-02-01] MEDS: midodrine 5 mg TABLET 10 MG PO ×3 (09:17→20:49)
[2024-02-01] MEDS: magnesium lactate 84 mg Tablet PO (09:17)
[2024-02-01] MEDS: pantoprazole DR 40 mg Tablet PO (09:17)
[2024-02-01] MEDS: multivitamin therapeutic Tablet 1 TAB PO (09:18)
[2024-02-01] MEDS: apixaban 5 mg Tablet PO ×2 (09:18→20:49)
[2024-02-01] MEDS: metoprolol tartrate 25 mg Tablet 12.5 MG PO ×2 (09:18→18:21)
[2024-02-01] MEDS: lactobacillus 1 Tablet 1 TAB PO ×3 (09:18→20:49)
[2024-02-01] MEDS: [UNRECOGNIZED DRUG - OTHER] 500 EACH PO (09:18)
[2024-02-01] MEDS: nystatin 100,000 unit/mL UDC 5 mL 100000 UNIT PO ×4 (09:19→20:49)
[2024-02-01] MEDS: CALCIUM CARBONATE 600 MG TABLET 1200 MG PO (09:39)
[2024-02-01] MEDS: acetaminophen 325 mg Tablet 650 MG PO (20:48)
[2024-02-01] MEDS: cholecalciferol (vitamin D3) 1,000 unit Tablet 2000 UNIT PO (20:49)
--- NOTE | 2024-02-01 20:54 | P.PN_ITS ---
Subjective 2 Subjective: She is doing about similar today without significant change. Vitals/I&O/Wt Last Vital Signs Temp 98.0 F 02/01/24 19:29 Pulse 105 H 02/01/24 19:29 Resp 17 02/01/24 19:29 BP 121/87 02/01/24 19:29 Pulse Ox 90 02/01/24 19:29 O2 Del Method Room Air 02/01/24 19:29 O2 Flow Rate 10 02/01/24 14:30 FiO2 65 01/16/24 11:00 02/01/24 02/01/24 02/01/24 06:59 14:59 22:59 Intake Total 120 / 120 Output Total 325 / 625 150 / 150 Balance -325 / -265 120 / 120 -150 / -30 Weight last 48 hrs Weight 63.276 kg Weight 66.996 kg Physical Exam 2 Const: COMMON NORMALS: patient oriented x3 and alert GENERAL APPEARANCE: c ooperative ORIENTATION/CONSCIOUSNESS: Yes awake HENMT: COMMON NORMALS: oropharynx normal Neck/C-Spine: COMMON NORMALS: no JVD Resp: COMMON NORMALS: normal respiratory effort and clear to auscultation bilaterally AUSCULTATION: clear to auscultation bilaterally, wheezes right lower (mild) and diminished lung sounds on the left in the lower lung philippe Cardio: COMMON NORMALS: no JVD, regular rhythm, S1 normal heart sound present, S2 normal heart sound present and No murmurs present (Cardio) RHYTHM: regular rhythm HEART SOUNDS: S1 normal heart sound present and S2 normal heart sound present GI: COMMON NORMALS: Normal to inspection, nondistended, normoactive bowel sounds present, Soft to palpation and non-tender PALPATION: Yes Soft to palpation Extremity: COMMON NORMALS: no joint enlargement and no pedal edema Neuro: COMMON NORMALS: patient oriented x3 and moves all extremities S ENSORIUM/ORIENTATION: Yes alert Skin: COMMON NORMALS: no rashes or lesions noted GENERAL SKIN EXAM: no rashes or lesions noted Urinary Catheter Management: Francois: Cath Placed During This Visit: yes, but has since been removed by the nurse Reason for Continuing Indwelling Catheter: Other Urinary Catheter Date of Insertion: 01/30/24 Urinary Catheter Time of Insertion: 15:00 Date Urinary Catheter Removed: 01/21/24 Time Urinary Catheter Discontinued: 14:45 Data 02/01/24 04:59 02/01/24 04:59 A&P Assessment and plan (1) Pleural effusion: (2) Acute and chronic respiratory failure ([id number]): (3) Lung cancer: (4) Pulmonary embolism: (5) Pulmonary hypertension: (6) Hemoptysis: (7) Physical deconditioning: (8) Muscle wasting: (9) Protein calorie malnutrition: Plan Acute on chronic hypoxic respiratory failure secondary to COPD, hemorrhagic pleural effusion, possible pneumonia. Still requiring 2 L of oxygen despite drainage yesterday. Reviewed CBC, BMP. Has been off antibiotic. Without leukocytosis. Afebrile. Today formed stool, no diarrhea.. Monitor. Discussed with mental health case manager, pending arrangements for LTAC. Reviewed pulmonology note. Additional 550 mL drainage from PleurX catheter yesterday. Reassess volume status. Reviewed CBC, BMP. Hemoglobin 13. Platelets normal. Reassess oxygenation, plan for repeat drainage tomorrow. Reviewed pulmonology note. Discussed with mental health case manager -unable to secure rehabilitation at LTAC. Attempts underway for rehab at [facility] and [place]. She is feeling weaker today, requested to temporarily replace Francois. Continue probiotic. Continue to monitor oxygenation, temps, recheck blood counts. Soft stool: Resolved. Without watery diarrhea. With evidence of hemorrhagic pleural effusion, culture so far negative, exudative pleural effusion by lights criteria -With underlying severe lung disease, bullous emphysema, pulm hypertension -History of left lower lobe nodule, status post SBRT August 2023 ? History of bullous emphysema, pulmonary hypertension -Recurrent hemorrhagic left pleural effusion, cytology 01/26 suspicious for malignancy, cytology , rare atypical cells with prominent nucleoli highly suspicious for malignancy -CTA ipsilateral hilar/mediastinal lymphadenopathy, 3.5 cm hilar mass, appears metastatic lesion, high risk for bronchoscopy and biopsies given her significant FiO2 requirements, underlying emphysema pulm hypertension she understands this refused biopsies Continue Eliquis Pleural studies no growth, de-escalate antibiotics to Augmentin Continue sildenafil for pulmonary hypertension at home dosing CT angiogram of the chest CT/CT angio chest 76826 IMPRESSION: 1. Redemonstration of eccentric nonocclusive thrombus within the posterior aspect of the left main pulmonary artery unchanged. 2. 3.5 cm left hilar mass likely malignant in nature, unchanged. 3. Moderate ipsilateral left hilar and mediastinal lymphadenopathy likely metastatic in nature. 4. Large left pleural effusion with adjacent compressive atelectasis left lung, stable. 5. Chronic compression fractures T6 and T10 vertebral bodies unchanged. -CT shows ipsilateral hilar/mediastinal lymphadenopathy 3. 5 cm hilar mass, -01/16/2024 rare atypical cells with prominent however suspicious for malignancy -Goals of care discussion, patient is considering hospice however wants to pursue physical therapy, [facility] stay versus long-term care stay for rehab before deciding ? Patient's Pleurx drain was drained on 01/25/2024, ? The issue prolonging her discharge is her overall debility, deconditioning, and her hypoxia, tachycardia and hypotension on exertion ? He has significant deconditioning, generalized weakness which is a concern for her to go home, she wants to go and get rehab at a custodial facility ? However here when she does work with physical therapy she becomes hypotensive, tachycardic, short of breath O2 saturations drop into the mid 80s requiring up to 15 L ? I had a discussion with her that there might not be an ideal situation I have already diuresed her as much as I can, we drained her Pleurx catheter, it might be that this is because of her underlying severe respiratory failure, and cardiac compensation, her severe underlying pulmonary hypertension her hemorrhagic pleural effusion, ? Overall her prognosis is poor, and I think hospice would be a reasonable option however she is not ready to make this decision, she does not want to have any chemotherapy anymore radiation therapy for her cancer, ? Chayito wants to go to rehab and get stronger, but I have tried my best to make this happen however it is proving to be difficult and possibly unlikely ? I was honest with Chayito and might be likely that she would have to go home, that this would be the only option that would be available to her, but she would have high risk of readmission, and complications, I think the only reasonable option to go home would be at home on hospice, but she is not ready for this Osteoporosis: Resume calcium supplementation. Continue vitamin D. Continue other home medications including levothyroxine, metoprolol physical deconditioning, protien calorie mlanutrition, muscle wasting -secondary to cancer, copd, respiratory failure -ptot -protein shakes DNR/DNI DVT prophylaxis: Eliquis PUD prophylaxis: Protonix 40 mg daily Attestations 2 Medical Necessity Statement*: Continue admission for assessment management of respiratory failure, recurrent effusion, post discharge planning and arrangements. Diagnoses Pleural effusion J90 Acute and chronic respiratory failure ([id number]) J96.20 Lung cancer C34.90 Pulmonary embolism I26.99 Pulmonary hypertension I27.20 Hemoptysis R04.2 Physical deconditioning R53.81 Muscle wasting M62.50 Protein calorie malnutrition E46
[2024-02-02] VITALS (49 sets, daily range): BP systolic 91–133; BP diastolic 63–91; PULSE 48–129; RESP 16–36; TEMP 36.4–36.8; O2SAT 85–95
[2024-02-02] MEDS: albuterol 2.5 mg/3 mL Neb INHALATION ×4 (02:29→20:20)
[2024-02-02 03:15] LABS: Basophils % 0.2 %; Eosinophils % 0.3 %; Hematocrit 42.4 % (36-47); Lymphocytes # 0.4 10^3/uL (0.8-4.8); Lymphocytes % 4.4 %; Mean Corpuscular HGB Conc 30.2 g/dL (30-55); Mean Corpuscular Hemoglobin 29.1 pg (27-33); Mean Corpuscular Volume 96.4 fl (85-98); Mean Platelet Volume 10.5 fL (7.4-10.4); Monocytes # 0.5 10^3/uL (0.2-0.9); Monocytes % 5.6 %; Neutrophils # 8.06 10^3/uL (1.8-7.7); Neutrophils % 88.3 %; Nucleated Red Blood Cells % 0 %; Platelet Count 233 10^3/cmm (157-399); Red Cell Distribution Width 15.5 % (12.1-15.1); White Blood Count 9.13 10^3/uL (3.29-11.43)
[2024-02-02 03:41] LABS: Anion Gap 11.1 (5-19); Blood Urea Nitrogen 17 mg/dL (8-23); Calcium 9.2 mg/dL (8.5-10.5); Carbon Dioxide 34 mmol/L (22-29); Chloride 102 mmol/L (98-107); Creatinine Clr Calc Pharmacy 93.6738; Glucose 104 mg/dL (65-115); Osmolality Calculated 296 mOsm/kg (285-295); Potassium 5.1 mmol/L (3.5-5.1); Sodium 142 mmol/L (136-145)
[2024-02-02] MEDS: levothyroxine 150 mcg Tablet PO (06:10)
[2024-02-02] MEDS: CALCIUM CARBONATE 600 MG TABLET 1200 MG PO (08:52)
[2024-02-02] MEDS: lactobacillus 1 Tablet 1 TAB PO ×3 (08:53→20:36)
[2024-02-02] MEDS: metoprolol tartrate 25 mg Tablet 12.5 MG PO ×2 (08:53→18:05)
[2024-02-02] MEDS: apixaban 5 mg Tablet PO ×2 (08:53→20:36)
[2024-02-02] MEDS: pantoprazole DR 40 mg Tablet PO (08:53)
[2024-02-02] MEDS: midodrine 5 mg TABLET 10 MG PO ×3 (08:53→20:36)
[2024-02-02] MEDS: multivitamin therapeutic Tablet 1 TAB PO (08:53)
[2024-02-02] MEDS: nystatin 100,000 unit/mL UDC 5 mL 100000 UNIT PO ×4 (08:54→20:37)
[2024-02-02] MEDS: [UNRECOGNIZED DRUG - OTHER] 500 EACH PO (08:54)
[2024-02-02] MEDS: magnesium lactate 84 mg Tablet PO (09:00)
--- NOTE | 2024-02-02 11:11 | P.PN_ITS ---
Subjective 2 Subjective: She is doing worse today. Has been getting more dyspneic. Requiring up to 15 L high flow cannula, still with low saturation switched over to heated high flow. Bothered by thoracic back pain. Vitals/I&O/Wt Last Vital Signs Temp 97.9 F 02/02/24 06:57 Pulse 129 H 02/02/24 09:53 Resp 22 H 02/02/24 09:53 BP 123/78 02/02/24 06:57 Pulse Ox 90 02/02/24 09:53 O2 Del Method High Flow Nasal Cannula 02/02/24 09:28 O2 Flow Rate 50 02/02/24 09:53 FiO2 75 02/02/24 09:53 02/01/24 02/02/24 02/02/24 22:59 06:59 14:59 Intake Total 200 / 320 100 / 420 Output Total 550 / 550 400 / 950 Balance -350 / -230 -300 / -530 Weight last 48 hrs Weight 67.585 kg Weight 67.585 kg Weight 63.276 kg Physical Exam 2 Const: COMMON NORMALS: patient oriented x3 and alert GENERAL APPEARANCE: c ooperative ORIENTATION/CONSCIOUSNESS: Yes awake HENMT: COMMON NORMALS: oropharynx normal Neck/C-Spine: COMMON NORMALS: no JVD Resp: COMMON NORMALS: normal respiratory effort AUSCULTATION: wheezes left upper and diminished lung sounds on the left in the lower lung philippe Cardio: COMMON NORMALS: no JVD, regular rhythm, S1 normal heart sound present, S2 normal heart sound present and No murmurs present (Cardio) RHYTHM: regular rhythm HEART SOUNDS: S1 normal heart sound present and S2 normal heart sound present GI: COMMON NORMALS: Normal to inspection, nondistended, normoactive bowel sounds present, Soft to palpation and non-tender PALPATION: Yes Soft to palpation Extremity: COMMON NORMALS: no joint enlargement and no pedal edema Neuro: COMMON NORMALS: patient oriented x3 and moves all extremities S ENSORIUM/ORIENTATION: Yes alert Skin: COMMON NORMALS: no rashes or lesions noted GENERAL SKIN EXAM: no rashes or lesions noted Urinary Catheter Management: Francois: Cath Placed During This Visit: yes, but has since been removed by the nurse Reason for Continuing Indwelling Catheter: Other Urinary Catheter Date of Insertion: 01/30/24 Urinary Catheter Time of Insertion: 15:00 Date Urinary Catheter Removed: 01/21/24 Time Urinary Catheter Discontinued: 14:45 Data 02/02/24 02:28 02/02/24 02:28 A&P Assessment and plan (1) Pleural effusion: (2) Acute and chronic respiratory failure ([id number]): (3) Lung cancer: (4) Pulmonary embolism: (5) Pulmonary hypertension: (6) Hemoptysis: (7) Physical deconditioning: (8) Muscle wasting: (9) Protein calorie malnutrition: Plan Acute on chronic hypoxic respiratory failure secondary to COPD, hemorrhagic pleural effusion, possible pneumonia. Worsening condition, worsening hypoxia, required up to 15 L nonrebreather, currently 50 L heated high flow cannula. Reviewed vitals, CBC, BMP. Wheezing over the left lung. Requesting breathing treatment. Monitor for risk of worsening tachycardia. Add budesonide. Chest tube drained 100 mL. Obtain chest x-ray. Moving to ICU. Discussed with nursing, respiratory therapy. Resume sildenafil. Reassess oxygenation, plan for repeat drainage tomorrow. Reviewed pulmonology note. Discussed with registered nurse hh case manager -unable to secure rehabilitation at [facility]. Attempts underway for rehab at [facility] and [place]. She is feeling weaker today, requested to temporarily replace Francois. Continue probiotic. Continue to monitor oxygenation, temps, recheck blood counts. Soft stool: Resolved. Without watery diarrhea. With evidence of hemorrhagic pleural effusion, culture so far negative, exudative pleural effusion by lights criteria -With underlying severe lung disease, bullous emphysema, pulm hypertension -History of left lower lobe nodule, status post SBRT August 2023 ? History of bullous emphysema, pulmonary hypertension -Recurrent hemorrhagic left pleural effusion, cytology 01/26 suspicious for malignancy, cytology , rare atypical cells with prominent nucleoli highly suspicious for malignancy -CTA ipsilateral hilar/mediastinal lymphadenopathy, 3.5 cm hilar mass, appears metastatic lesion, high risk for bronchoscopy and biopsies given her significant FiO2 requirements, underlying emphysema pulm hypertension she understands this refused biopsies Continue Eliquis Pleural studies no growth, de-escalate antibiotics to Augmentin Continue sildenafil for pulmonary hypertension at home dosing CT angiogram of the chest CT/CT angio chest 14015 IMPRESSION: 1. Redemonstration of eccentric nonocclusive thrombus within the posterior aspect of the left main pulmonary artery unchanged. 2. 3.5 cm left hilar mass likely malignant in nature, unchanged. 3. Moderate ipsilateral left hilar and mediastinal lymphadenopathy likely metastatic in nature. 4. Large left pleural effusion with adjacent compressive atelectasis left lung, stable. 5. Chronic compression fractures T6 and T10 vertebral bodies unchanged. -CT shows ipsilateral hilar/mediastinal lymphadenopathy 3. 5 cm hilar mass, -01/16/2024 rare atypical cells with prominent however suspicious for malignancy -Goals of care discussion, patient is considering hospice however wants to pursue physical therapy, half-way stay versus long-term care stay for rehab before deciding ? Patient's Pleurx drain was drained on 01/25/2024, ? The issue prolonging her discharge is her overall debility, deconditioning, and her hypoxia, tachycardia and hypotension on exertion ? He has significant deconditioning, generalized weakness which is a concern for her to go home, she wants to go and get rehab at a shelter facility ? However here when she does work with physical therapy she becomes hypotensive, tachycardic, short of breath O2 saturations drop into the mid 80s requiring up to 15 L ? I had a discussion with her that there might not be an ideal situation I have already diuresed her as much as I can, we drained her Pleurx catheter, it might be that this is because of her underlying severe respiratory failure, and cardiac compensation, her severe underlying pulmonary hypertension her hemorrhagic pleural effusion, ? Overall her prognosis is poor, and I think hospice would be a reasonable option however she is not ready to make this decision, she does not want to have any chemotherapy anymore radiation therapy for her cancer, ? Chayito wants to go to rehab and get stronger, but I have tried my best to make this happen however it is proving to be difficult and possibly unlikely ? I was honest with Chayito and might be likely that she would have to go home, that this would be the only option that would be available to her, but she would have high risk of readmission, and complications, I think the only reasonable option to go home would be at home on hospice, but she is not ready for this Osteoporosis: Resume calcium supplementation. Continue vitamin D. Continue other home medications including levothyroxine, metoprolol physical deconditioning, protien calorie mlanutrition, muscle wasting -secondary to cancer, copd, respiratory failure -ptot -protein shakes DNR/DNI DVT prophylaxis: Eliquis PUD prophylaxis: Protonix 40 mg daily Attestations 2 Medical Necessity Statement*: Continue admission for assessment management of respiratory failure, recurrent effusion, post discharge planning and arrangements. Diagnoses Pleural effusion J90 Acute and chronic respiratory failure ([id number]) J96.20 Lung cancer C34.90 Pulmonary embolism I26.99 Pulmonary hypertension I27.20 Hemoptysis R04.2 Physical deconditioning R53.81 Muscle wasting M62.50 Protein calorie malnutrition E46
--- NOTE | 2024-02-02 13:25 | XRR_ITS ---
PROCEDURE INFORMATION: Exam: XR Chest Exam date and time: 02/02/2024 2:19 PM Age: 58 years old Clinical indication: Device placement; Picc; Additional info: Post picc insertion on RT side TECHNIQUE: Imaging protocol: Radiologic exam of the chest. Views: 1 view. COMPARISON: 1. CT angio chest [id number] 01/18/2024 5:23 PM 2. CR XR chest 1V portable [id number] 01/27/2024 4:41 PM FINDINGS: Tubes, catheters and devices: A left pleural drain is again noted. There has been placement of a right PICC line with its tip in the distal superior vena cava. Lungs: There are unchanged mild diffuse left lung infiltrates. There are unchanged right lower lobe opacities. The previously noted nodular opacity within the right costophrenic angle does not appear as dense on the current study. There are severe emphysematous changes again noted Pleural spaces: There has been slight interval worsening in a moderate partially loculated left pleural effusion Heart/Mediastinum: Unremarkable. No cardiomegaly. Bones/joints: Unremarkable. XR/XR chest 1V portable [id number] IMPRESSION: 1. Placement of a right PICC line with its tip in the distal superior vena cava 2. Left pleural drain in stable position with mild interval worsening in a moderate-sized partially loculated left pleural effusion and persistent mild left lung infiltrates suspicious for atelectasis. 3. 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 4. Emphysema with interval decrease in density of a focal opacity within the right costophrenic angle suspicious for improving focal consolidation.
[2024-02-02] MEDS: budesonide 0.5 mg/2 mL Neb INHALATION ×2 (13:41→20:20)
--- NOTE | 2024-02-02 14:15 | PICC.NOTE ---
Triple lumen PICC placed to right basilic vein. Referred to vascular access nurse for PICC placement due to poor access. Risks and benefits discussed and informed consent obtained from patient. Right arm assessed with right basilic vein measuring 4.0 mm, straight, and apparent best choice for placement. Using sterile technique and MST, right baslic vein accessed x 1 stick. Mid-arm circumference measured 10 cm from right AC 31 cm. Trimmed cath 43 cm with 1 cm external length noted. CXR shows tip appearing to be distal SVC, awaiting vRad to read. Line secured with stat-lock. Insertion site covered with Biopatch, gauze, and TSM. Report given to bedside nurse, JUJU Amaro.
[2024-02-02] MEDS: NON-FORMULARY MEDICATION (Sildenafil (Pulm.Hypertension) 20 mg tablet) 20 EACH PO ×2 (15:41→20:37)
[2024-02-02] MEDS: cholecalciferol (vitamin D3) 1,000 unit Tablet 2000 UNIT PO (20:36)
[2024-02-03] VITALS (29 sets, daily range): BP systolic 102–136; BP diastolic 63–98; PULSE 59–116; RESP 18–28; TEMP 36.7–37; O2SAT 84–96
[2024-02-03] MEDS: albuterol 2.5 mg/3 mL Neb INHALATION ×4 (01:38→20:07)
[2024-02-03 04:59] LABS: Basophils % 0.4 %; Eosinophils # 0.1 10^3/uL (0.0-0.8); Eosinophils % 0.7 %; Hematocrit 38.8 % (36-47); Lymphocytes # 0.6 10^3/uL (0.8-4.8); Lymphocytes % 7.5 %; Mean Corpuscular HGB Conc 30.4 g/dL (30-55); Mean Corpuscular Hemoglobin 28.9 pg (27-33); Mean Corpuscular Volume 94.9 fl (85-98); Mean Platelet Volume 10.6 fL (7.4-10.4); Monocytes # 0.5 10^3/uL (0.2-0.9); Monocytes % 6.1 %; Neutrophils % 83.8 %; Nucleated Red Blood Cells % 0 %; Platelet Count 217 10^3/cmm (157-399); Red Blood Count 4.09 10^6/uL (3.85-5.65); Red Cell Distribution Width 15.7 % (12.1-15.1); White Blood Count 7.51 10^3/uL (3.29-11.43)
[2024-02-03] MEDS: levothyroxine 150 mcg Tablet PO (06:48)
[2024-02-03 07:07] LABS: Anion Gap 12.1 (5-19); Blood Urea Nitrogen 19 mg/dL (8-23); Carbon Dioxide 31 mmol/L (22-29); Chloride 100 mmol/L (98-107); Creatinine Clr Calc Pharmacy 95.0734; Glucose 104 mg/dL (65-115); Osmolality Calculated 289 mOsm/kg (285-295); Potassium 5.1 mmol/L (3.5-5.1); Sodium 138 mmol/L (136-145)
[2024-02-03] MEDS: budesonide 0.5 mg/2 mL Neb INHALATION ×2 (08:31→20:07)
[2024-02-03] MEDS: metoprolol tartrate 25 mg Tablet 12.5 MG PO ×2 (09:07→17:54)
[2024-02-03] MEDS: magnesium lactate 84 mg Tablet PO (09:07)
[2024-02-03] MEDS: midodrine 5 mg TABLET 10 MG PO ×3 (09:07→21:24)
[2024-02-03] MEDS: CALCIUM CARBONATE 600 MG TABLET 1200 MG PO (09:07)
[2024-02-03] MEDS: lactobacillus 1 Tablet 1 TAB PO ×3 (09:08→21:24)
[2024-02-03] MEDS: [UNRECOGNIZED DRUG - OTHER] 500 EACH PO (09:08)
[2024-02-03] MEDS: multivitamin therapeutic Tablet 1 TAB PO (09:08)
[2024-02-03] MEDS: nystatin 100,000 unit/mL UDC 5 mL 100000 UNIT PO ×4 (09:08→21:25)
[2024-02-03] MEDS: pantoprazole DR 40 mg Tablet PO (09:08)
[2024-02-03] MEDS: NON-FORMULARY MEDICATION (Sildenafil (Pulm.Hypertension) 20 mg tablet) 20 EACH PO ×3 (09:08→21:21)
[2024-02-03] MEDS: apixaban 5 mg Tablet PO (09:08)
--- NOTE | 2024-02-03 12:21 | PC.SOCIAL ---
IMM Update Pg. 2 of IMM updated and reviewed with patient, who verbalized understanding. Copy provided.
--- NOTE | 2024-02-03 20:47 | P.PN_ITS ---
Subjective 2 Subjective: Has been more dyspneic. Feeling pretty weak. Vitals/I&O/Wt Last Vital Signs Temp 98.6 F 02/03/24 16:00 Pulse 98 02/03/24 20:10 Resp 20 H 02/03/24 20:10 BP 132/79 02/03/24 13:00 Pulse Ox 93 02/03/24 20:10 O2 Del Method Heated High Flow 02/03/24 20:10 O2 Flow Rate 50 02/03/24 20:10 FiO2 80 02/03/24 20:10 02/03/24 02/03/24 02/03/24 06:59 14:59 22:59 Output Total 300 / 500 100 / 100 100 / 200 Balance -300 / -400 -100 / -100 -100 / -200 Weight last 48 hrs Weight 65.499 kg Weight 65.499 kg Weight 67.585 kg Weight 67.585 kg Physical Exam 2 Const: COMMON NORMALS: patient oriented x3 and alert GENERAL APPEARANCE: c ooperative ORIENTATION/CONSCIOUSNESS: Yes awake HENMT: COMMON NORMALS: oropharynx normal Neck/C-Spine: COMMON NORMALS: no JVD Resp: COMMON NORMALS: normal respiratory effort AUSCULTATION: no wheezes and diminished lung sounds on the left in the lower lung philippe OTHER: Heated high flow cannula. Giurgius dyspneic with exertion. Cardio: COMMON NORMALS: no JVD, regular rhythm, S1 normal heart sound present, S2 normal heart sound present and No murmurs present (Cardio) RHYTHM: regular rhythm HEART SOUNDS: S1 normal heart sound present and S2 normal heart sound present GI: COMMON NORMALS: Normal to inspection, nondistended, normoactive bowel sounds present, Soft to palpation and non-tender PALPATION: Yes Soft to palpation Extremity: COMMON NORMALS: no joint enlargement and no pedal edema Neuro: COMMON NORMALS: patient oriented x3 and moves all extremities S ENSORIUM/ORIENTATION: Yes alert Skin: COMMON NORMALS: no rashes or lesions noted GENERAL SKIN EXAM: no rashes or lesions noted Urinary Catheter Management: Francois: Cath Placed During This Visit: yes, but has since been removed by the nurse Reason for Continuing Indwelling Catheter: Accurate Measurement of Urinary Output in Critically Ill Patients Urinary Catheter Date of Insertion: 01/30/24 Urinary Catheter Time of Insertion: 15:00 Date Urinary Catheter Removed: 01/21/24 Time Urinary Catheter Discontinued: 14:45 Data 02/03/24 03:35 02/03/24 06:34 A&P Assessment and plan (1) Pleural effusion: (2) Acute and chronic respiratory failure ([id number]): (3) Lung cancer: (4) Pulmonary embolism: (5) Pulmonary hypertension: (6) Hemoptysis: (7) Physical deconditioning: (8) Muscle wasting: (9) Protein calorie malnutrition: Plan Acute on chronic hypoxic respiratory failure secondary to COPD, hemorrhagic pleural effusion, possible pneumonia. Had worsening of respiratory failure, requiring heated high flow, 80% FiO2, 50 L, due to this in intensive care unit. Reassessment chest x-ray reviewed with her, reviewed vitals, CBC, BMP. Does have worsening effusion at least moderate on imaging, with formation of loculation, as per discussion with her. Accessible with Pleurx catheter. Discussed with her high risk for thoracentesis, With risk of pneumothorax due to blebs.but she would like to try to See if radiology will consider attempting it. Reached out to radiology several times today. Will try again. In the meantime she is still on Eliquis, and certainly thoracentesis will not be possible with radiology on anticoagulation. Switch over to Lovenox for now. Hold Eliquis. Continue heated high flow oxygen support. Wean down as tolerating. Discussed with her additionally some improvement in opacification of right lung, atelectasis, pneumonia not excluded. She had previously declined antibiotics which had been discontinued. Overall appears to be less likely pneumonia, without leukocytosis, fever. Atelectasis possible or possibly part of her underlying condition with suspected metastatic malignancy. Discussed with nursing, business case analyst. Continue sildenafil. She is feeling weaker today, requested to temporarily continue Francois. Continue probiotic. Soft stool: Resolved. Without watery diarrhea. With evidence of hemorrhagic pleural effusion, culture so far negative, exudative pleural effusion by lights criteria -With underlying severe lung disease, bullous emphysema, pulm hypertension -History of left lower lobe nodule, status post SBRT August 2023 ? History of bullous emphysema, pulmonary hypertension -Recurrent hemorrhagic left pleural effusion, cytology 01/26 suspicious for malignancy, cytology , rare atypical cells with prominent nucleoli highly suspicious for malignancy -CTA ipsilateral hilar/mediastinal lymphadenopathy, 3.5 cm hilar mass, appears metastatic lesion, high risk for bronchoscopy and biopsies given her significant FiO2 requirements, underlying emphysema pulm hypertension she understands this refused biopsies Continue Eliquis Pleural studies no growth, de-escalate antibiotics to Augmentin Continue sildenafil for pulmonary hypertension at home dosing CT angiogram of the chest CT/CT angio chest [id number] IMPRESSION: 1. Redemonstration of eccentric nonocclusive thrombus within the posterior aspect of the left main pulmonary artery unchanged. 2. 3.5 cm left hilar mass likely malignant in nature, unchanged. 3. Moderate ipsilateral left hilar and mediastinal lymphadenopathy likely metastatic in nature. 4. Large left pleural effusion with adjacent compressive atelectasis left lung, stable. 5. Chronic compression fractures T6 and T10 vertebral bodies unchanged. -CT shows ipsilateral hilar/mediastinal lymphadenopathy 3. 5 cm hilar mass, -01/16/2024 rare atypical cells with prominent however suspicious for malignancy -Goals of care discussion, patient is considering hospice however wants to pursue physical therapy, detention stay versus long-term care stay for rehab before deciding ? Patient's Pleurx drain was drained on 01/25/2024, ? The issue prolonging her discharge is her overall debility, deconditioning, and her hypoxia, tachycardia and hypotension on exertion ? He has significant deconditioning, generalized weakness which is a concern for her to go home, she wants to go and get rehab at a [facility] facility ? However here when she does work with physical therapy she becomes hypotensive, tachycardic, short of breath O2 saturations drop into the mid 80s requiring up to 15 L ? I had a discussion with her that there might not be an ideal situation I have already diuresed her as much as I can, we drained her Pleurx catheter, it might be that this is because of her underlying severe respiratory failure, and cardiac compensation, her severe underlying pulmonary hypertension her hemorrhagic pleural effusion, ? Overall her prognosis is poor, and I think hospice would be a reasonable option however she is not ready to make this decision, she does not want to have any chemotherapy anymore radiation therapy for her cancer, ? Chayito wants to go to rehab and get stronger, but I have tried my best to make this happen however it is proving to be difficult and possibly unlikely ? I was honest with Chayito and might be likely that she would have to go home, that this would be the only option that would be available to her, but she would have high risk of readmission, and complications, I think the only reasonable option to go home would be at home on hospice, but she is not ready for this Osteoporosis: Resume calcium supplementation. Continue vitamin D. Continue other home medications including levothyroxine, metoprolol physical deconditioning, protien calorie mlanutrition, muscle wasting -secondary to cancer, copd, respiratory failure -ptot -protein shakes DNR/DNI DVT prophylaxis: Eliquis, now Lovenox PUD prophylaxis: Protonix 40 mg daily Attestations 2 Medical Necessity Statement*: Continue admission for assessment management of respiratory failure, recurrent effusion, post discharge planning and arrangements. Coding Level of Care Code Critical Care >/= 30 minutes Critical care time (in minutes): 40 The high probability of a clinically significant, sudden or life threatening deterioration, as referenced in this documentation, required my full and direct attention, intervention and personal management. The critical care time shown is in addition to time spent performing any reported separately billable procedures and includes the following: [x] Data and vital sign review and interpretation [x ] Patient assessment, examination and intervention [x] Medication orders and management [x] Patient/Family updates as able [x] Care Coordination and Documentation. Diagnoses Pleural effusion J90 Acute and chronic respiratory failure ([id number]) J96.20 Lung cancer C34.90 Pulmonary embolism I26.99 Pulmonary hypertension I27.20 Hemoptysis R04.2 Physical deconditioning R53.81 Muscle wasting M62.50 Protein calorie malnutrition E46
[2024-02-03] MEDS: cholecalciferol (vitamin D3) 1,000 unit Tablet 2000 UNIT PO (21:24)
[2024-02-03] MEDS: enoxaparin 60 mg/0.6 mL Syringe SUBCUT (21:25)
[2024-02-04] VITALS (42 sets, daily range): BP systolic 100–139; BP diastolic 65–87; PULSE 87–121; RESP 15–33; TEMP 36.5–37.2; O2SAT 73–96
[2024-02-04] MEDS: albuterol 2.5 mg/3 mL Neb INHALATION ×4 (02:18→19:43)
[2024-02-04 04:56] LABS: Basophils % 0.4 %; Eosinophils % 0.6 %; Hematocrit 35.7 % (36-47); Lymphocytes # 0.5 10^3/uL (0.8-4.8); Lymphocytes % 7.9 %; Mean Corpuscular Hemoglobin 28.8 pg (27-33); Mean Platelet Volume 10.2 fL (7.4-10.4); Monocytes # 0.5 10^3/uL (0.2-0.9); Monocytes % 6.9 %; Neutrophils # 5.64 10^3/uL (1.8-7.7); Neutrophils % 82.2 %; Nucleated Red Blood Cells % 0 %; Platelet Count 231 10^3/cmm (157-399); Red Blood Count 3.72 10^6/uL (3.85-5.65); Red Cell Distribution Width 15.7 % (12.1-15.1); White Blood Count 6.86 10^3/uL (3.29-11.43)
[2024-02-04 05:21] LABS: Anion Gap 13.9 (5-19); Blood Urea Nitrogen 20 mg/dL (8-23); Carbon Dioxide 32 mmol/L (22-29); Chloride 100 mmol/L (98-107); Creatinine Clr Calc Pharmacy 94.8732; Glucose 101 mg/dL (65-115); Osmolality Calculated 295 mOsm/kg (285-295); Potassium 4.9 mmol/L (3.5-5.1); Sodium 141 mmol/L (136-145)
[2024-02-04] MEDS: levothyroxine 150 mcg Tablet PO (06:15)
[2024-02-04] MEDS: budesonide 0.5 mg/2 mL Neb INHALATION ×2 (08:31→19:43)
[2024-02-04] MEDS: NON-FORMULARY MEDICATION (Sildenafil (Pulm.Hypertension) 20 mg tablet) 20 EACH PO ×3 (09:03→20:05)
[2024-02-04] MEDS: enoxaparin 60 mg/0.6 mL Syringe SUBCUT ×2 (09:03→20:04)
[2024-02-04] MEDS: multivitamin therapeutic Tablet 1 TAB PO (09:04)
[2024-02-04] MEDS: lactobacillus 1 Tablet 1 TAB PO ×3 (09:04→20:04)
[2024-02-04] MEDS: [UNRECOGNIZED DRUG - OTHER] 500 EACH PO (09:04)
[2024-02-04] MEDS: nystatin 100,000 unit/mL UDC 5 mL 100000 UNIT PO ×3 (09:04→20:04)
[2024-02-04] MEDS: pantoprazole DR 40 mg Tablet PO (09:04)
[2024-02-04] MEDS: CALCIUM CARBONATE 600 MG TABLET 1200 MG PO (09:04)
[2024-02-04] MEDS: midodrine 5 mg TABLET 10 MG PO ×3 (09:04→20:04)
[2024-02-04] MEDS: magnesium lactate 84 mg Tablet PO (09:04)
[2024-02-04] MEDS: metoprolol tartrate 25 mg Tablet 12.5 MG PO ×2 (09:04→17:30)
[2024-02-04] MEDS: cholecalciferol (vitamin D3) 1,000 unit Tablet 2000 UNIT PO (20:04)
--- NOTE | 2024-02-04 20:55 | P.PN_ITS ---
Subjective 2 Subjective: She has been having a hard time catching her breaths. Has limited oral intake due to getting more short of breath with eating or drinking. Vitals/I&O/Wt Last Vital Signs Temp 97.7 F 02/04/24 10:05 Pulse 108 H 02/04/24 19:45 Resp 18 02/04/24 19:45 BP 139/81 02/04/24 17:00 Pulse Ox 94 02/04/24 19:45 O2 Del Method Heated High Flow 02/04/24 19:45 O2 Flow Rate 50 02/04/24 19:45 FiO2 100 02/04/24 19:45 02/04/24 02/04/24 02/04/24 06:59 14:59 22:59 Intake Total 420 / 420 240 / 660 Output Total 100 / 600 175 / 175 Balance -100 / -500 245 / 245 240 / 485 Weight last 48 hrs Weight 65.181 kg Weight 65.499 kg Weight 65.499 kg Physical Exam 2 Narrative: Generally weak. Const: COMMON NORMALS: patient oriented x3 and alert GENERAL APPEARANCE: c ooperative ORIENTATION/CONSCIOUSNESS: Yes awake HENMT: COMMON NORMALS: oropharynx normal Neck/C-Spine: COMMON NORMALS: no JVD Resp: COMMON NORMALS: normal respiratory effort and clear to auscultation bilaterally AUSCULTATION: clear to auscultation bilaterally, no wheezes and diminished lung sounds on the left in the lower lung philippe OTHER: Heated high flow cannula. Gets dyspneic with exertion. Cardio: COMMON NORMALS: no JVD, regular rhythm, S1 normal heart sound present, S2 normal heart sound present and No murmurs present (Cardio) RHYTHM: regular rhythm HEART SOUNDS: S1 normal heart sound present and S2 normal heart sound present GI: COMMON NORMALS: Normal to inspection, nondistended, normoactive bowel sounds present, Soft to palpation and non-tender PALPATION: Yes Soft to palpation Extremity: COMMON NORMALS: no joint enlargement and no pedal edema Neuro: COMMON NORMALS: patient oriented x3 and moves all extremities S ENSORIUM/ORIENTATION: Yes alert Skin: COMMON NORMALS: no rashes or lesions noted GENERAL SKIN EXAM: no rashes or lesions noted Urinary Catheter Management: Francois: Cath Placed During This Visit: yes, but has since been removed by the nurse Reason for Continuing Indwelling Catheter: Accurate Measurement of Urinary Output in Critically Ill Patients Urinary Catheter Date of Insertion: 01/30/24 Urinary Catheter Time of Insertion: 15:00 Date Urinary Catheter Removed: 01/21/24 Time Urinary Catheter Discontinued: 14:45 Data 02/04/24 04:36 02/04/24 04:36 A&P Assessment and plan (1) Pleural effusion: (2) Acute and chronic respiratory failure ([id number]): (3) Lung cancer: (4) Pulmonary embolism: (5) Pulmonary hypertension: (6) Hemoptysis: (7) Physical deconditioning: (8) Muscle wasting: (9) Protein calorie malnutrition: Plan Acute on chronic hypoxic respiratory failure with recurrent pleural effusion, suspected malignancy, to COPD. She has remained afebrile, without leukocytosis. Less likely pneumonia, however, we discussed possibly resuming antibiotic. She is agreeable. Otherwise attempts today made for additional drainage via Pleurx catheter, however, only minimal output 100 cc. Effusion with loculation. She is on Eliquis, we discussed with her high risk of performing thoracentesis with risk of rupture of bullae, pneumothorax. However, otherwise his condition is also gradually dwindling. We discussed with her possibility that in case she continues to worsen and becomes too weak to breathe efficiently, or becoming confused or other complication, that she would want us to initiate comfort measures at that point to allow for her to pass peacefully. She is agreeable to such a plan in case of this development. In the meantime she does still want to try to pursue thoracentesis, holding off Eliquis, continuing on Lovenox for now. Given her overall condition, gradually weakening, and unfortunately possibly progression to worsening respiratory failure, she has been speaking with her son, we discussed with her to see if she would want to let him know that with her condition worsening she potentially may not have much time left and seeing if her son is able to come to visit her here given this could be the last chance for him to see her. She states that she will do so. Attempted to also reach out to him as well, but the automated security assistant/spam prevention disconnected the call. Worsening of respiratory failure, requiring heated high flow, 100% FiO2, 50 L. Does have worsening effusion at least moderate on imaging, with formation of loculation, as per discussion with her. Accessible with Pleurx catheter. Discussed with her high risk for thoracentesis, With risk of pneumothorax due to blebs.but she would like to try to See if radiology will consider attempting it. Reached out to radiology several times today. Will try again. In the meantime she is still on Eliquis, and certainly thoracentesis will not be possible with radiology on anticoagulation. Switch over to Lovenox for now. Hold Eliquis. Continue heated high flow oxygen support. Wean down as tolerating. Discussed with her additionally some improvement in opacification of right lung, atelectasis, pneumonia not excluded. She had previously declined antibiotics which had been discontinued. Overall appears to be less likely pneumonia, without leukocytosis, fever. Atelectasis possible or possibly part of her underlying condition with suspected metastatic malignancy. Discussed with nursing, case coordinator. Continue sildenafil. Hold alendronate. She is feeling weaker, requested to temporarily continue Francois. Continue probiotic. With evidence of hemorrhagic pleural effusion, culture so far negative, exudative pleural effusion by lights criteria -With underlying severe lung disease, bullous emphysema, pulm hypertension -History of left lower lobe nodule, status post SBRT August 2023 ? History of bullous emphysema, pulmonary hypertension -Recurrent hemorrhagic left pleural effusion, cytology 01/26 suspicious for malignancy, cytology , rare atypical cells with prominent nucleoli highly suspicious for malignancy -CTA ipsilateral hilar/mediastinal lymphadenopathy, 3.5 cm hilar mass, appears metastatic lesion, high risk for bronchoscopy and biopsies given her significant FiO2 requirements, underlying emphysema pulm hypertension she understands this refused biopsies Continue Eliquis Pleural studies no growth, de-escalate antibiotics to Augmentin Continue sildenafil for pulmonary hypertension at home dosing CT angiogram of the chest CT/CT angio chest [id number] IMPRESSION: 1. Redemonstration of eccentric nonocclusive thrombus within the posterior aspect of the left main pulmonary artery unchanged. 2. 3.5 cm left hilar mass likely malignant in nature, unchanged. 3. Moderate ipsilateral left hilar and mediastinal lymphadenopathy likely metastatic in nature. 4. Large left pleural effusion with adjacent compressive atelectasis left lung, stable. 5. Chronic compression fractures T6 and T10 vertebral bodies unchanged. -CT shows ipsilateral hilar/mediastinal lymphadenopathy 3. 5 cm hilar mass, -01/16/2024 rare atypical cells with prominent however suspicious for malignancy -Goals of care discussion, patient is considering hospice however wants to pursue physical therapy, [facility] stay versus long-term care stay for rehab before deciding ? Patient's Pleurx drain was drained on 01/25/2024, ? The issue prolonging her discharge is her overall debility, deconditioning, and her hypoxia, tachycardia and hypotension on exertion ? He has significant deconditioning, generalized weakness which is a concern for her to go home, she wants to go and get rehab at a assisted facility ? However here when she does work with physical therapy she becomes hypotensive, tachycardic, short of breath O2 saturations drop into the mid 80s requiring up to 15 L ? I had a discussion with her that there might not be an ideal situation I have already diuresed her as much as I can, we drained her Pleurx catheter, it might be that this is because of her underlying severe respiratory failure, and cardiac compensation, her severe underlying pulmonary hypertension her hemorrhagic pleural effusion, ? Overall her prognosis is poor, and I think hospice would be a reasonable option however she is not ready to make this decision, she does not want to have any chemotherapy anymore radiation therapy for her cancer, ? Chayito wants to go to rehab and get stronger, but I have tried my best to make this happen however it is proving to be difficult and possibly unlikely ? I was honest with Chayito and might be likely that she would have to go home, that this would be the only option that would be available to her, but she would have high risk of readmission, and complications, I think the only reasonable option to go home would be at home on hospice, but she is not ready for this Mildly worsening anemia: Hemoglobin down to 10.7. Recheck blood counts. Soft stool: Resolved. Without watery diarrhea. Osteoporosis: Resume calcium supplementation. Continue vitamin D. Continue other home medications including levothyroxine, metoprolol physical deconditioning, protien calorie mlanutrition, muscle wasting -secondary to cancer, copd, respiratory failure -ptot -protein shakes DNR/DNI DVT prophylaxis: Eliquis, now Lovenox PUD prophylaxis: Protonix 40 mg daily Attestations 2 Medical Necessity Statement*: Continue admission for assessment management of worsening respiratory failure, recurrent effusion. Coding Level of Care Code Critical Care >/= 30 minutes Critical care time (in minutes): 40 The high probability of a clinically significant, sudden or life threatening deterioration, as referenced in this documentation, required my full and direct attention, intervention and personal management. The critical care time shown is in addition to time spent performing any reported separately billable procedures and includes the following: [x] Data and vital sign review and interpretation [x ] Patient assessment, examination and intervention [x] Medication orders and management [x] Patient/Family updates as able [x] Care Coordination and Documentation. Diagnoses Pleural effusion J90 Acute and chronic respiratory failure ([id number]) J96.20 Lung cancer C34.90 Pulmonary embolism I26.99 Pulmonary hypertension I27.20 Hemoptysis R04.2 Physical deconditioning R53.81 Muscle wasting M62.50 Protein calorie malnutrition E46
[2024-02-04] MEDS: amoxicillin-clav 875-125 mg Tablet 1 TAB PO (21:26)
[2024-02-05] VITALS (36 sets, daily range): BP systolic 99–141; BP diastolic 63–93; PULSE 84–120; RESP 17–26; TEMP 36.4–36.8; O2SAT 86–98; BMI 20.7
[2024-02-05] MEDS: albuterol 2.5 mg/3 mL Neb INHALATION ×4 (01:31→20:19)
[2024-02-05 05:06] LABS: Basophils % 0.5 %; Eosinophils # 0.1 10^3/uL (0.0-0.8); Hematocrit 38.4 % (36-47); Lymphocytes # 0.7 10^3/uL (0.8-4.8); Lymphocytes % 10.7 %; Mean Corpuscular HGB Conc 30.2 g/dL (30-55); Mean Corpuscular Hemoglobin 29.1 pg (27-33); Mean Corpuscular Volume 96.2 fl (85-98); Mean Platelet Volume 10.1 fL (7.4-10.4); Monocytes # 0.5 10^3/uL (0.2-0.9); Monocytes % 7.4 %; Neutrophils # 4.75 10^3/uL (1.8-7.7); Neutrophils % 78.3 %; Nucleated Red Blood Cells % 0.3 %; Platelet Count 230 10^3/cmm (157-399); Red Blood Count 3.99 10^6/uL (3.85-5.65); Red Cell Distribution Width 15.9 % (12.1-15.1); White Blood Count 6.07 10^3/uL (3.29-11.43)
[2024-02-05] MEDS: levothyroxine 150 mcg Tablet PO (06:00)
[2024-02-05 06:41] LABS: Anion Gap 13.1 (5-19); Blood Urea Nitrogen 21 mg/dL (8-23); Calcium 9.6 mg/dL (8.5-10.5); Carbon Dioxide 34 mmol/L (22-29); Chloride 100 mmol/L (98-107); Creatinine Clr Calc Pharmacy 76.6198; Glomerular Filtration Rate 85.4 mL/min (90-130); Glucose 113 mg/dL (65-115); Osmolality Calculated 298 mOsm/kg (285-295); Potassium 5.1 mmol/L (3.5-5.1); Sodium 142 mmol/L (136-145)
[2024-02-05] MEDS: amoxicillin-clav 875-125 mg Tablet 1 TAB PO ×2 (08:18→17:13)
[2024-02-05] MEDS: magnesium lactate 84 mg Tablet PO (08:18)
[2024-02-05] MEDS: budesonide 0.5 mg/2 mL Neb INHALATION ×2 (08:18→20:19)
[2024-02-05] MEDS: midodrine 5 mg TABLET 10 MG PO ×3 (08:18→20:28)
[2024-02-05] MEDS: metoprolol tartrate 25 mg Tablet 12.5 MG PO ×2 (08:18→17:13)
[2024-02-05] MEDS: lactobacillus 1 Tablet 1 TAB PO ×3 (08:18→20:28)
[2024-02-05] MEDS: nystatin 100,000 unit/mL UDC 5 mL 100000 UNIT PO ×4 (08:19→20:28)
[2024-02-05] MEDS: multivitamin therapeutic Tablet 1 TAB PO (08:19)
[2024-02-05] MEDS: pantoprazole DR 40 mg Tablet PO (08:19)
[2024-02-05] MEDS: NON-FORMULARY MEDICATION (Sildenafil (Pulm.Hypertension) 20 mg tablet) 20 EACH PO ×3 (08:20→20:28)
[2024-02-05] MEDS: [UNRECOGNIZED DRUG - OTHER] 500 EACH PO (08:20)
[2024-02-05] MEDS: CALCIUM CARBONATE 600 MG TABLET 1200 MG PO (09:12)
--- NOTE | 2024-02-05 10:02 | PC.SOCIAL ---
IMM Update Pg. 2 of IMM updated and reviewed with patient, who verbalized understanding. Copy provided.
--- NOTE | 2024-02-05 10:48 | US_ITS ---
WS: [id number] ULTRASOUND-GUIDED THORACENTESIS CLINICAL INFORMATION: fluid pocket inccessible by pleurx PROCEDURE: Informed consent: The risks, benefits, and alternatives of the procedure were discussed with the chelo ent. Verbal and written consent was obtained. Timeout: A timeout was performed to confirm the correct patient, procedure, and site. Site: LEFT chest Preparation: A suitable skin site was identified. The patient was prepped and draped in usual sterile fashion. Lidocaine 1% was used for local anesthesia. Catheter: 4 [employer] One-Step catheter. Fluid Volume: 400 ml Color: Bloody serous Complications: No pneumothorax on the postthoracentesis radiograph US/ thoracentesis [id number] IMPRESSION: Uncomplicated ultrasound-guided thoracentesis.
[2024-02-05 12:36] LABS: Partial Thromboplastin Time 41.7 SECONDS (23.9-36.7)
--- NOTE | 2024-02-05 13:19 | P.PN_ITS ---
Subjective 2 Subjective: Still having difficulty breathing. Dyspneic. Understands the risk of pneumothorax which could be potentially life-threatening condition in case with thoracentesis, wants to pursue the procedure if it is possible. Understands that if there are multiple loculations and then drainage may not be successful. Additionally if there are multiple loculations, based on prior assessments with pulmonology is not a safe candidate for VATS with severity of emphysema with blebs. Discussing with her whether she had spoke with her son yet, she states not yet. States she was worried and did not want to call him yet, not wanting to scare him. However, discussed with her given her overall condition and worsening, and circumstances may come to a point where she will not be able to. She states she will call after thoracentesis. Vitals/I&O/Wt Last Vital Signs Temp 97.8 F 02/05/24 07:22 Pulse 102 H 02/05/24 12:00 Resp 22 H 02/05/24 12:00 BP 138/93 02/05/24 12:00 Pulse Ox 89 L 02/05/24 12:00 O2 Del Method Heated High Flow 02/05/24 08:00 O2 Flow Rate 55 02/05/24 11:17 FiO2 80 02/05/24 11:17 02/04/24 02/05/24 02/05/24 22:59 06:59 14:59 Intake Total 240 / 660 Output Total 450 / 625 Balance 240 / 485 -450 / 35 Weight last 48 hrs Weight 56.472 kg Weight 65.181 kg Physical Exam 2 Narrative: Generally weak. Const: COMMON NORMALS: patient oriented x3 and alert GENERAL APPEARANCE: c ooperative ORIENTATION/CONSCIOUSNESS: Yes awake HENMT: COMMON NORMALS: oropharynx normal Neck/C-Spine: COMMON NORMALS: no JVD Resp: COMMON NORMALS: normal respiratory effort and clear to auscultation bilaterally AUSCULTATION: clear to auscultation bilaterally, wheezes and diminished lung sounds on the left in the lower lung philippe OTHER: Heated high flow cannula. Gets dyspneic with exertion. Cardio: COMMON NORMALS: no JVD, regular rhythm, S1 normal heart sound present, S2 normal heart sound present and No murmurs present (Cardio) RHYTHM: regular rhythm HEART SOUNDS: S1 normal heart sound present and S2 normal heart sound present GI: COMMON NORMALS: Normal to inspection, nondistended, normoactive bowel sounds present, Soft to palpation and non-tender PALPATION: Yes Soft to palpation Extremity: COMMON NORMALS: no joint enlargement and no pedal edema Neuro: COMMON NORMALS: patient oriented x3 and moves all extremities S ENSORIUM/ORIENTATION: Yes alert Skin: COMMON NORMALS: no rashes or lesions noted GENERAL SKIN EXAM: no rashes or lesions noted Urinary Catheter Management: Francois: Cath Placed During This Visit: yes, but has since been removed by the nurse Reason for Continuing Indwelling Catheter: Accurate Measurement of Urinary Output in Critically Ill Patients Urinary Catheter Date of Insertion: 01/30/24 Urinary Catheter Time of Insertion: 15:00 Date Urinary Catheter Removed: 01/21/24 Time Urinary Catheter Discontinued: 14:45 Data 02/05/24 04:35 02/05/24 06:00 A&P Assessment and plan (1) Pleural effusion: (2) Acute and chronic respiratory failure ([id number]): (3) Lung cancer: (4) Pulmonary embolism: (5) Pulmonary hypertension: (6) Hemoptysis: (7) Physical deconditioning: (8) Muscle wasting: (9) Protein calorie malnutrition: Plan Acute on chronic hypoxic respiratory failure. Dyspneic, requiring 95% FiO2 on 50 L, this is adjusted to 55 L with 80% FiO2. Reviewed vitals, CBC, PTT, BMP. Discussed with her starting antibiotic. Discussed choice of oral therapy. She agrees with concerns for IV infusion/injection, concern for fluid overload, worsening effusion. Discussed wheezing in the right lung, she does have breathing treatments, discussed addition of steroid. Add Solu-Medrol 30 mg every 8 hours. Discussed with radiologist regarding possible thoracentesis, has been off Eliquis since the day before yesterday and we held Lovenox last night in anticipation of possible procedure today. Discussed risks, severe eczema, blebs, suspicion of loculation based on chest x-ray. As per discussion with her she understands that there may not be possibility or it may not be successful or only partially successful. Risk of complication including pneumothorax which may be life-threatening given severity of her condition. She wants to proceed for some additional temporary relief. Discussed with medical case worker. With recurrent pleural effusion, suspected malignancy, to COPD. She has remained afebrile, without leukocytosis. Less likely pneumonia, however, we discussed possibly resuming antibiotic. She is agreeable. Otherwise attempts today made for additional drainage via Pleurx catheter, however, only minimal output 100 cc. Effusion with loculation. She is on Eliquis, we discussed with her high risk of performing thoracentesis with risk of rupture of bullae, pneumothorax. However, otherwise his condition is also gradually dwindling. We discussed with her possibility that in case she continues to worsen and becomes too weak to breathe efficiently, or becoming confused or other complication, that she would want us to initiate comfort measures at that point to allow for her to pass peacefully. She is agreeable to such a plan in case of this development. In the meantime she does still want to try to pursue thoracentesis, holding off Eliquis, continuing on Lovenox for now. Given her overall condition, gradually weakening, and unfortunately possibly progression to worsening respiratory failure, she has been speaking with her son, we discussed with her to see if she would want to let him know that with her condition worsening she potentially may not have much time left and seeing if her son is able to come to visit her here given this could be the last chance for him to see her. She states that she will do so. Attempted to also reach out to him as well, but the automated assistant professor of dietetics/spam prevention disconnected the call. Does have worsening effusion at least moderate on imaging, with formation of loculation, as per discussion with her. Accessible with Pleurx catheter. Discussed with her high risk for thoracentesis, With risk of pneumothorax due to blebs. Discussed with her additionally some improvement in opacification of right lung, atelectasis, pneumonia not excluded. She had previously declined antibiotics which had been discontinued. Overall appears to be less likely pneumonia, without leukocytosis, fever. Atelectasis possible or possibly part of her underlying condition with suspected metastatic malignancy. Continue sildenafil. Hold alendronate. She is feeling weaker, requested to temporarily continue Francois. Continue probiotic. With evidence of hemorrhagic pleural effusion, culture so far negative, exudative pleural effusion by lights criteria -With underlying severe lung disease, bullous emphysema, pulm hypertension -History of left lower lobe nodule, status post SBRT August 2023 ? History of bullous emphysema, pulmonary hypertension -Recurrent hemorrhagic left pleural effusion, cytology 01/26 suspicious for malignancy, cytology , rare atypical cells with prominent nucleoli highly suspicious for malignancy -CTA ipsilateral hilar/mediastinal lymphadenopathy, 3.5 cm hilar mass, appears metastatic lesion, high risk for bronchoscopy and biopsies given her significant FiO2 requirements, underlying emphysema pulm hypertension she understands this refused biopsies Continue Eliquis Pleural studies no growth, de-escalate antibiotics to Augmentin Continue sildenafil for pulmonary hypertension at home dosing CT angiogram of the chest CT/CT angio chest 02714 IMPRESSION: 1. Redemonstration of eccentric nonocclusive thrombus within the posterior aspect of the left main pulmonary artery unchanged. 2. 3.5 cm left hilar mass likely malignant in nature, unchanged. 3. Moderate ipsilateral left hilar and mediastinal lymphadenopathy likely metastatic in nature. 4. Large left pleural effusion with adjacent compressive atelectasis left lung, stable. 5. Chronic compression fractures T6 and T10 vertebral bodies unchanged. -CT shows ipsilateral hilar/mediastinal lymphadenopathy 3. 5 cm hilar mass, -01/16/2024 rare atypical cells with prominent however suspicious for malignancy -Goals of care discussion, patient is considering hospice however wants to pursue physical therapy, detention stay versus long-term care stay for rehab before deciding ? Patient's Pleurx drain was drained on 01/25/2024, ? The issue prolonging her discharge is her overall debility, deconditioning, and her hypoxia, tachycardia and hypotension on exertion ? He has significant deconditioning, generalized weakness which is a concern for her to go home, she wants to go and get rehab at a [facility] facility ? However here when she does work with physical therapy she becomes hypotensive, tachycardic, short of breath O2 saturations drop into the mid 80s requiring up to 15 L ? I had a discussion with her that there might not be an ideal situation I have already diuresed her as much as I can, we drained her Pleurx catheter, it might be that this is because of her underlying severe respiratory failure, and cardiac compensation, her severe underlying pulmonary hypertension her hemorrhagic pleural effusion, ? Overall her prognosis is poor, and I think hospice would be a reasonable option however she is not ready to make this decision, she does not want to have any chemotherapy anymore radiation therapy for her cancer, ? Chayito wants to go to rehab and get stronger, but I have tried my best to make this happen however it is proving to be difficult and possibly unlikely ? I was honest with Chayito and might be likely that she would have to go home, that this would be the only option that would be available to her, but she would have high risk of readmission, and complications, I think the only reasonable option to go home would be at home on hospice, but she is not ready for this Mildly worsening anemia: Hemoglobin down to 10.7. Recheck blood counts. Soft stool: Resolved. Without watery diarrhea. Osteoporosis: Resume calcium supplementation. Continue vitamin D. Continue other home medications including levothyroxine, metoprolol physical deconditioning, protien calorie mlanutrition, muscle wasting -secondary to cancer, copd, respiratory failure -ptot -protein shakes DNR/DNI DVT prophylaxis: Eliquis, now Lovenox PUD prophylaxis: Protonix 40 mg daily Eliquis Attestations 2 Medical Necessity Statement*: Continue admission for assessment management of worsening respiratory failure, recurrent effusion. Coding Level of Care Code Critical Care >/= 30 minutes Critical care time (in minutes): 35 The high probability of a clinically significant, sudden or life threatening deterioration, as referenced in this documentation, required my full and direct attention, intervention and personal management. The critical care time shown is in addition to time spent performing any reported separately billable procedures and includes the following: [x] Data and vital sign review and interpretation [x ] Patient assessment, examination and intervention [x] Medication orders and management [x] Patient/Family updates as able [x] Care Coordination and Documentation. Diagnoses Pleural effusion J90 Acute and chronic respiratory failure ([id number]) J96.20 Lung cancer C34.90 Pulmonary embolism I26.99 Pulmonary hypertension I27.20 Hemoptysis R04.2 Physical deconditioning R53.81 Muscle wasting M62.50 Protein calorie malnutrition E46
[2024-02-05] MEDS: methylPREDNISolone sod succ 40 mg/mL INJ 30 MG IVP ×2 (14:07→20:30)
--- NOTE | 2024-02-05 15:40 | XR_ITS ---
WS: [id number] CHEST XRAY TECHNIQUE: Portable chest. CLINICAL INFORMATION: Post Thoracentesis COMPARISON: 02/02/2024 and 01/27/2024 FINDINGS: RIGHT PICC line with tip in the distal SVC. LEFT Pleurx catheter. Heart: Stable cardiomegaly. Lungs: Stable coarse infiltrates in the RIGHT lower lobe with interstitial infiltrates in the LEFT up per lobe similar to previous. Interstitial edema in the LEFT upper lobe. Persistent consolidation in the LEFT lower lobe. No pneumothorax. Bones: Osteopenia. XR/XR chest 1V portable [id number] IMPRESSION: 1. No pneumothorax post LEFT thoracentesis. 2. Otherwise stable chest radiograph
[2024-02-05 16:31] LABS: Cyto Order Verification Order Verified; Fluid Laterality R
[2024-02-05 16:42] LABS: Body Fluid Polynuclear #Cells 0.013; Body Fluid WBC 144 /uL; Monocytes # Body Fluid 0.131
[2024-02-05 17:35] LABS: Apprearance, Body Fluid CLOUDY; Color, Body Fluid RED
[2024-02-05] MEDS: cholecalciferol (vitamin D3) 1,000 unit Tablet 2000 UNIT PO (20:27)
[2024-02-06] VITALS (33 sets, daily range): BP systolic 102–130; BP diastolic 66–90; PULSE 83–117; RESP 15–31; TEMP 36.4–36.8; O2SAT 91–97; BMI 21.7
[2024-02-06] MEDS: albuterol 2.5 mg/3 mL Neb INHALATION ×3 (02:14→13:17)
[2024-02-06] MEDS: methylPREDNISolone sod succ 40 mg/mL INJ 30 MG IVP ×3 (04:50→21:15)
[2024-02-06 05:25] LABS: Basophils % 0.3 %; Hematocrit 36.2 % (36-47); Lymphocytes # 0.5 10^3/uL (0.8-4.8); Lymphocytes % 7.1 %; Mean Corpuscular HGB Conc 30.7 g/dL (30-55); Mean Corpuscular Hemoglobin 29.1 pg (27-33); Mean Corpuscular Volume 94.8 fl (85-98); Mean Platelet Volume 10.1 fL (7.4-10.4); Monocytes # 0.1 10^3/uL (0.2-0.9); Monocytes % 2.1 %; Neutrophils # 5.97 10^3/uL (1.8-7.7); Neutrophils % 88.6 %; Nucleated Red Blood Cells % 0 %; Platelet Count 210 10^3/cmm (157-399); Red Blood Count 3.82 10^6/uL (3.85-5.65); Red Cell Distribution Width 15.8 % (12.1-15.1); White Blood Count 6.74 10^3/uL (3.29-11.43)
[2024-02-06 05:51] LABS: Blood Urea Nitrogen 30 mg/dL (8-23); Calcium 9.5 mg/dL (8.5-10.5); Carbon Dioxide 31 mmol/L (22-29); Chloride 98 mmol/L (98-107); Creatinine Clr Calc Pharmacy 91.1036; Glucose 121 mg/dL (65-115); Osmolality Calculated 293 mOsm/kg (285-295); Sodium 138 mmol/L (136-145)
[2024-02-06 05:58] LABS: Anion Gap 14.5 (5-19); Potassium 5.5 mmol/L (3.5-5.1)
[2024-02-06] MEDS: levothyroxine 150 mcg Tablet PO (06:04)
[2024-02-06] MEDS: budesonide 0.5 mg/2 mL Neb INHALATION ×2 (08:16→20:15)
[2024-02-06] MEDS: metoprolol tartrate 25 mg Tablet 12.5 MG PO ×2 (08:51→17:16)
[2024-02-06] MEDS: amoxicillin-clav 875-125 mg Tablet 1 TAB PO ×2 (08:51→17:16)
[2024-02-06] MEDS: [UNRECOGNIZED DRUG - OTHER] 500 EACH PO (08:52)
[2024-02-06] MEDS: magnesium lactate 84 mg Tablet PO (08:52)
[2024-02-06] MEDS: lactobacillus 1 Tablet 1 TAB PO ×3 (08:52→20:49)
[2024-02-06] MEDS: NON-FORMULARY MEDICATION (Sildenafil (Pulm.Hypertension) 20 mg tablet) 20 EACH PO ×3 (08:52→20:50)
[2024-02-06] MEDS: midodrine 5 mg TABLET 10 MG PO ×3 (08:52→20:49)
[2024-02-06] MEDS: pantoprazole DR 40 mg Tablet PO (08:52)
[2024-02-06] MEDS: nystatin 100,000 unit/mL UDC 5 mL 100000 UNIT PO ×4 (08:52→20:50)
[2024-02-06] MEDS: multivitamin therapeutic Tablet 1 TAB PO (08:52)
[2024-02-06] MEDS: acetaminophen 325 mg Tablet 650 MG PO ×2 (08:57→21:16)
[2024-02-06] MEDS: CALCIUM CARBONATE 600 MG TABLET 1200 MG PO (10:05)
--- NOTE | 2024-02-06 18:10 | PC.NURSE ---
Attempted to transport patient upstairs o2 dropped to 80% on NRB Dr. Garrett advised to keep in icu for now ay retry later tonight or in the AM
--- NOTE | 2024-02-06 19:44 | PM.PN ---
Subjective Subjective: She felt some improvement in breathing after thoracentesis yesterday. Having little bit more of the protein shake that she had brought with herself due to high-protein and low-carb content. Vitals/I&O/Wt Last Vital Signs Temp 97.6 F 02/06/24 07:22 Pulse 110 H 02/06/24 18:08 Resp 24 H 02/06/24 18:08 BP 109/70 02/06/24 16:00 Pulse Ox 96 02/06/24 18:08 O2 Del Method Heated High Flow 02/06/24 13:17 O2 Flow Rate 50 02/06/24 18:08 FiO2 100 02/06/24 18:08 02/06/24 02/06/24 02/06/24 06:59 14:59 22:59 Intake Total 100 / 100 Output Total 150 / 475 350 / 350 Balance -150 / -475 100 / 100 -350 / -250 Weight last 48 hrs Weight 59.194 kg Weight 59.194 kg Weight 56.472 kg Physical Exam Narrative: Generally weak but appears slightly stronger today. Const: COMMON NORMALS: patient oriented x3 and alert GENERAL APPEARANCE: cooperative ORIENTATION/CONSCIOUSNESS: Yes awake HENMT: COMMON NORMALS: oropharynx normal Neck/C-Spine: COMMON NORMALS: no JVD Resp: COMMON NORMALS: normal respiratory effort and clear to auscultation bilaterally AUSCULTATION: clear to auscultation bilaterally, wheezes left upper and diminished lung sounds on the left in the lower lung philippe OTHER: Heated high flow cannula. Gets dyspneic with exertion. Cardio: COMMON NORMALS: no JVD, regular rhythm, S1 normal heart sound present, S2 normal heart sound present and No murmurs present (Cardio) RHYTHM: regular rhythm HEART SOUNDS: S1 normal heart sound present and S2 normal heart sound present GI: COMMON NORMALS: Normal to inspection, nondistended, normoactive bowel sounds present, Soft to palpation and non-tender PALPATION: Yes Soft to palpation Extremity: COMMON NORMALS: no joint enlargement and no pedal edema Neuro: COMMON NORMALS: patient oriented x3 and moves all extremities SENSORIUM/ORIENTATION: Yes alert Skin: COMMON NORMALS: no rashes or lesions noted GENERAL SKIN EXAM: no rashes or lesions noted Urinary Catheter Management: Francois: Cath Placed During This Visit: yes, but has since been removed by the nurse Reason for Continuing Indwelling Catheter: Accurate Measurement of Urinary Output in Critically Ill Patients Urinary Catheter Date of Insertion: 01/30/24 Urinary Catheter Time of Insertion: 15:00 Date Urinary Catheter Removed: 01/21/24 Time Urinary Catheter Discontinued: 14:45 Data 02/06/24 05:09 02/06/24 05:09 Micro: Microbiology 02/05/24 Unknown Gram Stain - Final Pleural Fluid Anaerobic Culture - Preliminary Body Fluid Culture - Preliminary A&P Assessment and plan (1) Pleural effusion: (2) Acute and chronic respiratory failure ([id number]): (3) Lung cancer: (4) Pulmonary embolism: (5) Pulmonary hypertension: (6) Hemoptysis: (7) Physical deconditioning: (8) Muscle wasting: (9) Protein calorie malnutrition: Plan Acute on chronic hypoxic respiratory failure. Status postthoracentesis with removal of 400 mL of fluid. With some relief of symptoms, mild improvement in oxygenation, down to 80% FiO2, but again requiring up to 100% FiO2 this evening. Discussed with her insurance declining LTAC due to to high FiO2 requirement. Discussed the other option may be going to hospice route. She states that she would be proceeding with hospice, but would like to find a facility in [place] so that she can be close to family. Due to holiday today no case management is available, they should be back tomorrow to reinitiate the process. In the meantime continue oxygen support, per discussion with her for now continue IV steroid, antibiotic. Nutrition as tolerating, including protein shakes. Discussed with nursing staff. Reviewed vitals, CBC, BMP, pleural fluid studies. Pleural fluid stain and culture, pending. Pleural fluid cytology is pending. Continue holding alendronate as she cannot reliably take it and stay upright, with risk of esophagitis, reflux. Renew albuterol sulfate. Oxygen requirement too high for medical floor at current time. With recurrent pleural effusion, suspected malignancy, to COPD. She has remained afebrile, without leukocytosis. Less likely pneumonia, however, we discussed possibly resuming antibiotic. She is agreeable. Otherwise attempts today made for additional drainage via Pleurx catheter, however, only minimal output 100 cc. Effusion with loculation. She is on Eliquis, we discussed with her high risk of performing thoracentesis with risk of rupture of bullae, pneumothorax. However, otherwise his condition is also gradually dwindling. We discussed with her possibility that in case she continues to worsen and becomes too weak to breathe efficiently, or becoming confused or other complication, that she would want us to initiate comfort measures at that point to allow for her to pass peacefully. She is agreeable to such a plan in case of this development. In the meantime she does still want to try to pursue thoracentesis, holding off Eliquis, continuing on Lovenox for now. Given her overall condition, gradually weakening, and unfortunately possibly progression to worsening respiratory failure, she has been speaking with her son, we discussed with her to see if she would want to let him know that with her condition worsening she potentially may not have much time left and seeing if her son is able to come to visit her here given this could be the last chance for him to see her. She states that she will do so. Attempted to also reach out to him as well, but the automated facilities maintenance assistant/spam prevention disconnected the call. Does have worsening effusion at least moderate on imaging, with formation of loculation, as per discussion with her. Only partially accessible with Pleurx catheter. Opacification of right lung, atelectasis, pneumonia not excluded. She had previously declined antibiotics which had been discontinued. Overall appears to be less likely pneumonia, without leukocytosis, fever. Atelectasis possible or possibly part of her underlying condition with suspected metastatic malignancy. Continue sildenafil. Hold alendronate. She is feeling weaker, requested to temporarily continue Francois. Continue probiotic. With evidence of hemorrhagic pleural effusion, culture so far negative, exudative pleural effusion by lights criteria -With underlying severe lung disease, bullous emphysema, pulm hypertension -History of left lower lobe nodule, status post SBRT August 2023 ? History of bullous emphysema, pulmonary hypertension -Recurrent hemorrhagic left pleural effusion, cytology 01/26 suspicious for malignancy, cytology , rare atypical cells with prominent nucleoli highly suspicious for malignancy -CTA ipsilateral hilar/mediastinal lymphadenopathy, 3.5 cm hilar mass, appears metastatic lesion, high risk for bronchoscopy and biopsies given her significant FiO2 requirements, underlying emphysema pulm hypertension she understands this refused biopsies Continue Eliquis Pleural studies no growth, de-escalate antibiotics to Augmentin Continue sildenafil for pulmonary hypertension at home dosing CT angiogram of the chest CT/CT angio chest [id number] IMPRESSION: 1. Redemonstration of eccentric nonocclusive thrombus within the posterior aspect of the left main pulmonary artery unchanged. 2. 3.5 cm left hilar mass likely malignant in nature, unchanged. 3. Moderate ipsilateral left hilar and mediastinal lymphadenopathy likely metastatic in nature. 4. Large left pleural effusion with adjacent compressive atelectasis left lung, stable. 5. Chronic compression fractures T6 and T10 vertebral bodies unchanged. -CT shows ipsilateral hilar/mediastinal lymphadenopathy 3. 5 cm hilar mass, -01/16/2024 rare atypical cells with prominent however suspicious for malignancy -Goals of care discussion, patient is considering hospice however wants to pursue physical therapy, snf stay versus long-term care stay for rehab before deciding ? Patient's Pleurx drain was drained on 01/25/2024, ? The issue prolonging her discharge is her overall debility, deconditioning, and her hypoxia, tachycardia and hypotension on exertion ? He has significant deconditioning, generalized weakness which is a concern for her to go home, [facility] ? However here when she does work with physical therapy she becomes hypotensive, tachycardic, short of breath O2 saturations drop into the mid 80s requiring up to 15 L ? I had a discussion with her that there might not be an ideal situation I have already diuresed her as much as I can, we drained her Pleurx catheter, it might be that this is because of her underlying severe respiratory failure, and cardiac compensation, her severe underlying pulmonary hypertension her hemorrhagic pleural effusion, ? Overall her prognosis is poor, and I think hospice would be a reasonable option however she is not ready to make this decision, she does not want to have any chemotherapy anymore radiation therapy for her cancer, ? Chayito wants to go to rehab and get stronger, but I have tried my best to make this happen however it is proving to be difficult and possibly unlikely ? I was honest with Chayito and might be likely that she would have to go home, that this would be the only option that would be available to her, but she would have high risk of readmission, and complications, I think the only reasonable option to go home would be at home on hospice, but she is not ready for this Mildly worsening anemia: Hemoglobin down to 10.7. Recheck blood counts. Soft stool: Resolved. Without watery diarrhea. Osteoporosis: Resume calcium supplementation. Continue vitamin D. Continue other home medications including levothyroxine, metoprolol physical deconditioning, protien calorie mlanutrition, muscle wasting -secondary to cancer, copd, respiratory failure -ptot -protein shakes DNR/DNI DVT prophylaxis: Eliquis, now Lovenox PUD prophylaxis: Protonix 40 mg daily Eliquis Attestations Medical Necessity Statement*: Continue admission for assessment management of worsening respiratory failure, recurrent effusion. and High MDM includes number and complexity of problems actively addressed during encounter as documented Diagnoses Pleural effusion J90 Acute and chronic respiratory failure ([id number]) J96.20 Lung cancer C34.90 Pulmonary embolism I26.99 Pulmonary hypertension I27.20 Hemoptysis R04.2 Physical deconditioning R53.81 Muscle wasting M62.50 Protein calorie malnutrition E46
[2024-02-06] MEDS: ipratropium-albuterol 3 mL Neb INHALATION (20:15)
[2024-02-06] MEDS: cholecalciferol (vitamin D3) 1,000 unit Tablet 2000 UNIT PO (20:49)
[2024-02-07] VITALS (31 sets, daily range): BP systolic 102–135; BP diastolic 61–81; PULSE 86–112; RESP 17–28; TEMP 36.4–36.7; O2SAT 89–97
[2024-02-07] MEDS: albuterol 2.5 mg/3 mL Neb INHALATION ×4 (02:36→20:22)
[2024-02-07 03:51] LABS: Basophils % 0.1 %; Hematocrit 35.4 % (36-47); Lymphocytes # 0.4 10^3/uL (0.8-4.8); Lymphocytes % 4.9 %; Mean Corpuscular HGB Conc 31.4 g/dL (30-55); Mean Corpuscular Hemoglobin 29.4 pg (27-33); Mean Corpuscular Volume 93.7 fl (85-98); Mean Platelet Volume 10.8 fL (7.4-10.4); Monocytes # 0.3 10^3/uL (0.2-0.9); Monocytes % 3.5 %; Neutrophils # 7.88 10^3/uL (1.8-7.7); Neutrophils % 89.8 %; Nucleated Red Blood Cells % 0 %; Platelet Count 231 10^3/cmm (157-399); Red Blood Count 3.78 10^6/uL (3.85-5.65); Red Cell Distribution Width 15.8 % (12.1-15.1); White Blood Count 8.78 10^3/uL (3.29-11.43)
[2024-02-07] MEDS: levothyroxine 150 mcg Tablet PO (06:07)
[2024-02-07] MEDS: methylPREDNISolone sod succ 40 mg/mL INJ 30 MG IVP ×3 (06:07→20:46)
[2024-02-07] MEDS: budesonide 0.5 mg/2 mL Neb INHALATION ×2 (08:09→20:22)
[2024-02-07] MEDS: CALCIUM CARBONATE 600 MG TABLET 1200 MG PO (08:35)
[2024-02-07] MEDS: magnesium lactate 84 mg Tablet PO (08:35)
[2024-02-07] MEDS: metoprolol tartrate 25 mg Tablet 12.5 MG PO ×2 (08:35→17:19)
[2024-02-07] MEDS: midodrine 5 mg TABLET 10 MG PO ×3 (08:35→20:45)
[2024-02-07] MEDS: multivitamin therapeutic Tablet 1 TAB PO (08:35)
[2024-02-07] MEDS: amoxicillin-clav 875-125 mg Tablet 1 TAB PO ×2 (08:35→17:19)
[2024-02-07] MEDS: lactobacillus 1 Tablet 1 TAB PO ×3 (08:35→20:45)
[2024-02-07] MEDS: pantoprazole DR 40 mg Tablet PO (08:35)
[2024-02-07] MEDS: NON-FORMULARY MEDICATION (Sildenafil (Pulm.Hypertension) 20 mg tablet) 20 EACH PO ×2 (08:36→14:30)
[2024-02-07] MEDS: [UNRECOGNIZED DRUG - OTHER] 500 EACH PO (08:36)
[2024-02-07] MEDS: nystatin 100,000 unit/mL UDC 5 mL 100000 UNIT PO ×4 (08:36→20:46)
[2024-02-07 09:03] LABS: Anion Gap 13.6 (5-19); Blood Urea Nitrogen 38 mg/dL (8-23); Carbon Dioxide 31 mmol/L (22-29); Chloride 97 mmol/L (98-107); Creatinine Clr Calc Pharmacy 109.5812; Glomerular Filtration Rate 125.9 mL/min (90-130); Glucose 137 mg/dL (65-115); Osmolality Calculated 295 mOsm/kg (285-295); Potassium 4.6 mmol/L (3.5-5.1); Sodium 137 mmol/L (136-145)
--- NOTE | 2024-02-07 09:44 | PC.SOCIAL ---
IMM Update Pg. 2 of IMM updated and reviewed with patient who verbalized understanding. Copy provided.
[2024-02-07] MEDS: acetaminophen 325 mg Tablet 650 MG PO (14:29)
--- NOTE | 2024-02-07 15:29 | PM.PN ---
Subjective Subjective: She is feeling slightly better. Wheezing with improvement in the right chest. Vitals/I&O/Wt Last Vital Signs Temp 97.7 F 02/07/24 11:58 Pulse 102 H 02/07/24 14:00 Resp 23 H 02/07/24 13:19 BP 112/61 02/07/24 11:58 Pulse Ox 91 02/07/24 13:19 O2 Del Method High Flow Nasal Cannula 02/07/24 13:10 O2 Flow Rate 50 02/07/24 13:19 FiO2 90 02/07/24 13:19 02/07/24 02/07/24 02/07/24 06:59 14:59 22:59 Intake Total 360 / 560 200 / 200 Output Total 350 / 700 120 / 120 Balance 10 / -140 80 / 80 Weight last 48 hrs Weight 59.534 kg Weight 59.194 kg Weight 59.194 kg Physical Exam Narrative: Generally weak but appears slightly stronger today. Const: COMMON NORMALS: patient oriented x3 and alert GENERAL APPEARANCE: cooperative ORIENTATION/CONSCIOUSNESS: Yes awake HENMT: COMMON NORMALS: oropharynx normal Neck/C-Spine: COMMON NORMALS: no JVD Resp: COMMON NORMALS: normal respiratory effort and clear to auscultation bilaterally AUSCULTATION: clear to auscultation bilaterally, wheezes left upper and diminished lung sounds on the left in the lower lung philippe OTHER: Heated high flow cannula. Gets dyspneic with exertion. Cardio: COMMON NORMALS: no JVD, regular rhythm, S1 normal heart sound present, S2 normal heart sound present and No murmurs present (Cardio) RHYTHM: regular rhythm HEART SOUNDS: S1 normal heart sound present and S2 normal heart sound present GI: COMMON NORMALS: Normal to inspection, nondistended, normoactive bowel sounds present, Soft to palpation and non-tender PALPATION: Yes Soft to palpation Extremity: COMMON NORMALS: no joint enlargement and no pedal edema Neuro: COMMON NORMALS: patient oriented x3 and moves all extremities SENSORIUM/ORIENTATION: Yes alert Skin: COMMON NORMALS: no rashes or lesions noted GENERAL SKIN EXAM: no rashes or lesions noted Urinary Catheter Management: Francois: Cath Placed During This Visit: yes, but has since been removed by the nurse Reason for Continuing Indwelling Catheter: Accurate Measurement of Urinary Output in Critically Ill Patients Urinary Catheter Date of Insertion: 01/30/24 Urinary Catheter Time of Insertion: 15:00 Date Urinary Catheter Removed: 01/21/24 Time Urinary Catheter Discontinued: 14:45 Data 02/07/24 03:09 02/07/24 08:23 Micro: Microbiology 02/05/24 Unknown Gram Stain - Final Pleural Fluid Anaerobic Culture - Preliminary Body Fluid Culture - Preliminary A&P Assessment and plan (1) Pleural effusion: (2) Acute and chronic respiratory failure ([id number]): (3) Lung cancer: (4) Pulmonary embolism: (5) Pulmonary hypertension: (6) Hemoptysis: (7) Physical deconditioning: (8) Muscle wasting: (9) Protein calorie malnutrition: Plan Acute on chronic hypoxic respiratory failure. Reviewed vitals, CBC, BMP, reviewed body fluid culture, no organisms seen. Additional 120 mL drained from Pleurx catheter today. Discussed with case management, working on arrangement for hospice in [place] so she can be close to family. Requiring 90% FiO2 and 50 L heated high flow cannula. With some concomitant bronchitis, responding to IV Solu-Medrol, Augmentin, breathing treatments. Improvement in wheezing. Discussed with her for now continue IV steroids, monitor for risk of hyperglycemia, hypertension, gastritis, mental status changes. Status postthoracentesis with removal of 400 mL of fluid. With some relief of symptoms, mild improvement in oxygenation, down to 80% FiO2, but again requiring up to 100% FiO2 this evening. Discussed with her insurance declining LTAC due to to high FiO2 requirement. Discussed the other option may be going to hospice route. She states that she would be proceeding with hospice, but would like to find a facility in [place] so that she can be close to family. Due to holiday today no case management is available, they should be back tomorrow to reinitiate the process. In the meantime continue oxygen support, per discussion with her for now continue IV steroid, antibiotic. Nutrition as tolerating, including protein shakes. Discussed with nursing staff. Reviewed vitals, CBC, BMP, pleural fluid studies. Pleural fluid stain and culture, pending. Pleural fluid cytology is pending. Continue holding alendronate as she cannot reliably take it and stay upright, with risk of esophagitis, reflux. Renew albuterol sulfate. Oxygen requirement too high for medical floor at current time. With recurrent pleural effusion, suspected malignancy, to COPD. She has remained afebrile, without leukocytosis. Less likely pneumonia, however, we discussed possibly resuming antibiotic. She is agreeable. Otherwise attempts today made for additional drainage via Pleurx catheter, however, only minimal output 100 cc. Effusion with loculation. She is on Eliquis, we discussed with her high risk of performing thoracentesis with risk of rupture of bullae, pneumothorax. However, otherwise his condition is also gradually dwindling. We discussed with her possibility that in case she continues to worsen and becomes too weak to breathe efficiently, or becoming confused or other complication, that she would want us to initiate comfort measures at that point to allow for her to pass peacefully. She is agreeable to such a plan in case of this development. In the meantime she does still want to try to pursue thoracentesis, holding off Eliquis, continuing on Lovenox for now. Given her overall condition, gradually weakening, and unfortunately possibly progression to worsening respiratory failure, she has been speaking with her son, we discussed with her to see if she would want to let him know that with her condition worsening she potentially may not have much time left and seeing if her son is able to come to visit her here given this could be the last chance for him to see her. She states that she will do so. Attempted to also reach out to him as well, but the automated physician assistant primary care/spam prevention disconnected the call. Does have worsening effusion at least moderate on imaging, with formation of loculation, as per discussion with her. Only partially accessible with Pleurx catheter. Opacification of right lung, atelectasis, pneumonia not excluded. She had previously declined antibiotics which had been discontinued. Overall appears to be less likely pneumonia, without leukocytosis, fever. Atelectasis possible or possibly part of her underlying condition with suspected metastatic malignancy. Continue sildenafil. Hold alendronate. She is feeling weaker, requested to temporarily continue Francois. Continue probiotic. With evidence of hemorrhagic pleural effusion, culture so far negative, exudative pleural effusion by lights criteria -With underlying severe lung disease, bullous emphysema, pulm hypertension -History of left lower lobe nodule, status post SBRT August 2023 ? History of bullous emphysema, pulmonary hypertension -Recurrent hemorrhagic left pleural effusion, cytology 01/26 suspicious for malignancy, cytology , rare atypical cells with prominent nucleoli highly suspicious for malignancy -CTA ipsilateral hilar/mediastinal lymphadenopathy, 3.5 cm hilar mass, appears metastatic lesion, high risk for bronchoscopy and biopsies given her significant FiO2 requirements, underlying emphysema pulm hypertension she understands this refused biopsies Continue Eliquis Pleural studies no growth, de-escalate antibiotics to Augmentin Continue sildenafil for pulmonary hypertension at home dosing CT angiogram of the chest CT/CT angio chest 97208 IMPRESSION: 1. Redemonstration of eccentric nonocclusive thrombus within the posterior aspect of the left main pulmonary artery unchanged. 2. 3.5 cm left hilar mass likely malignant in nature, unchanged. 3. Moderate ipsilateral left hilar and mediastinal lymphadenopathy likely metastatic in nature. 4. Large left pleural effusion with adjacent compressive atelectasis left lung, stable. 5. Chronic compression fractures T6 and T10 vertebral bodies unchanged. -CT shows ipsilateral hilar/mediastinal lymphadenopathy 3. 5 cm hilar mass, -01/16/2024 rare atypical cells with prominent however suspicious for malignancy -Goals of care discussion, patient is considering hospice however wants to pursue physical therapy, [facility] stay versus long-term care stay for rehab before deciding ? Patient's Pleurx drain was drained on 01/25/2024, ? The issue prolonging her discharge is her overall debility, deconditioning, and her hypoxia, tachycardia and hypotension on exertion ? He has significant deconditioning, generalized weakness which is a concern for her to go home, she wants to go and get rehab at a [facility] facility ? However here when she does work with physical therapy she becomes hypotensive, tachycardic, short of breath O2 saturations drop into the mid 80s requiring up to 15 L ? I had a discussion with her that there might not be an ideal situation I have already diuresed her as much as I can, we drained her Pleurx catheter, it might be that this is because of her underlying severe respiratory failure, and cardiac compensation, her severe underlying pulmonary hypertension her hemorrhagic pleural effusion, ? Overall her prognosis is poor, and I think hospice would be a reasonable option however she is not ready to make this decision, she does not want to have any chemotherapy anymore radiation therapy for her cancer, ? Chayito wants to go to rehab and get stronger, but I have tried my best to make this happen however it is proving to be difficult and possibly unlikely ? I was honest with Chayito and might be likely that she would have to go home, that this would be the only option that would be available to her, but she would have high risk of readmission, and complications, I think the only reasonable option to go home would be at home on hospice, but she is not ready for this Mildly worsening anemia: Hemoglobin down to 10.7. Recheck blood counts. Soft stool: Resolved. Without watery diarrhea. Osteoporosis: Resume calcium supplementation. Continue vitamin D. Continue other home medications including levothyroxine, metoprolol physical deconditioning, protien calorie mlanutrition, muscle wasting -secondary to cancer, copd, respiratory failure -ptot -protein shakes DNR/DNI DVT prophylaxis: Eliquis, now Lovenox PUD prophylaxis: Protonix 40 mg daily Eliquis Attestations Medical Necessity Statement*: Continue admission for assessment management of worsening respiratory failure, recurrent effusion, acute bronchitis. and High MDM includes amount and/or complexity of data reviewed/ordered [ resulted lab(s)/test(s), ordered lab(s)/test(s) and other healthcare professional discussion] and described risk of complication, morbidity or mortality of management as documented Diagnoses Pleural effusion J90 Acute and chronic respiratory failure ([id number]) J96.20 Lung cancer C34.90 Pulmonary embolism I26.99 Pulmonary hypertension I27.20 Hemoptysis R04.2 Physical deconditioning R53.81 Muscle wasting M62.50 Protein calorie malnutrition E46
[2024-02-07] MEDS: cholecalciferol (vitamin D3) 1,000 unit Tablet 2000 UNIT PO (20:45)
[2024-02-07] MEDS: enoxaparin 60 mg/0.6 mL Syringe SUBCUT (20:45)
[2024-02-07] MEDS: bisacodyl 10 mg Supp PR (20:46)
[2024-02-08] VITALS (16 sets, daily range): BP systolic 118–128; BP diastolic 74–88; PULSE 89–118; RESP 16–24; TEMP 35.9–36.6; O2SAT 86–91; BMI 23.3; BMI 23.6
[2024-02-08] MEDS: albuterol 2.5 mg/3 mL Neb INHALATION ×4 (01:58→20:11)
[2024-02-08] MEDS: levothyroxine 150 mcg Tablet PO (06:15)
[2024-02-08] MEDS: methylPREDNISolone sod succ 40 mg/mL INJ 30 MG IVP ×3 (06:15→20:59)
[2024-02-08] MEDS: budesonide 0.5 mg/2 mL Neb INHALATION ×2 (07:54→20:11)
[2024-02-08 08:45] LABS: Basophils % 0.1 %; Hematocrit 39.4 % (36-47); Lymphocytes # 0.2 10^3/uL (0.8-4.8); Mean Corpuscular HGB Conc 30.2 g/dL (30-55); Mean Corpuscular Volume 96.1 fl (85-98); Monocytes # 0.5 10^3/uL (0.2-0.9); Neutrophils # 10.37 10^3/uL (1.8-7.7); Neutrophils % 91.9 %; Nucleated Red Blood Cells % 0 %; Platelet Count 207 10^3/cmm (157-399); Red Cell Distribution Width 15.9 % (12.1-15.1); White Blood Count 11.29 10^3/uL (3.29-11.43)
[2024-02-08 09:03] LABS: Anion Gap 13.1 (5-19); Blood Urea Nitrogen 31 mg/dL (8-23); Calcium 9.3 mg/dL (8.5-10.5); Carbon Dioxide 33 mmol/L (22-29); Chloride 98 mmol/L (98-107); Creatinine Clr Calc Pharmacy 113.3515; Glomerular Filtration Rate 125.9 mL/min (90-130); Glucose 146 mg/dL (65-115); Osmolality Calculated 297 mOsm/kg (285-295); Potassium 5.1 mmol/L (3.5-5.1); Sodium 139 mmol/L (136-145)
[2024-02-08] MEDS: multivitamin therapeutic Tablet 1 TAB PO (09:58)
[2024-02-08] MEDS: enoxaparin 60 mg/0.6 mL Syringe SUBCUT ×2 (09:58→20:59)
[2024-02-08] MEDS: nystatin 100,000 unit/mL UDC 5 mL 100000 UNIT PO ×4 (09:58→20:58)
[2024-02-08] MEDS: lactobacillus 1 Tablet 1 TAB PO ×3 (09:59→20:58)
[2024-02-08] MEDS: pantoprazole DR 40 mg Tablet PO (09:59)
[2024-02-08] MEDS: midodrine 5 mg TABLET 10 MG PO ×3 (09:59→20:59)
[2024-02-08] MEDS: metoprolol tartrate 25 mg Tablet 12.5 MG PO (09:59)
[2024-02-08] MEDS: [UNRECOGNIZED DRUG - OTHER] 500 EACH PO (10:19)
[2024-02-08] MEDS: NON-FORMULARY MEDICATION (Sildenafil (Pulm.Hypertension) 20 mg tablet) 20 EACH PO ×3 (10:19→20:59)
--- NOTE | 2024-02-08 19:03 | P.PN_ITS ---
Subjective 2 Subjective: Yesterday she was having constipation, requested for help with that. Received a suppository. She reports she has had multiple episodes of diarrhea overnight. Vitals/I&O/Wt Last Vital Signs Temp 97.6 F 02/08/24 16:00 Pulse 110 H 02/08/24 16:00 Resp 18 02/08/24 16:00 BP 119/88 02/08/24 16:00 Pulse Ox 88 L 02/08/24 16:00 O2 Del Method Heated High Flow 02/08/24 16:00 O2 Flow Rate 50 02/08/24 16:00 FiO2 93 02/08/24 16:00 02/08/24 02/08/24 02/08/24 06:59 14:59 22:59 Intake Total 120 / 520 Output Total 150 / 720 400 / 400 Balance -30 / -200 -400 / -400 Weight last 48 hrs Weight 64.524 kg Weight 63.616 kg Weight 59.534 kg Physical Exam 2 Narrative: Generally weak but appears slightly stronger today. Const: COMMON NORMALS: patient oriented x3 and alert GENERAL APPEARANCE: c ooperative ORIENTATION/CONSCIOUSNESS: Yes awake HENMT: COMMON NORMALS: oropharynx normal Neck/C-Spine: COMMON NORMALS: no JVD Resp: COMMON NORMALS: normal respiratory effort and clear to auscultation bilaterally AUSCULTATION: clear to auscultation bilaterally, wheezes left upper and diminished lung sounds on the left in the lower lung philippe OTHER: Heated high flow cannula. Gets dyspneic with exertion. Cardio: COMMON NORMALS: no JVD, regular rhythm, S1 normal heart sound present, S2 normal heart sound present and No murmurs present (Cardio) RHYTHM: regular rhythm HEART SOUNDS: S1 normal heart sound present and S2 normal heart sound present GI: COMMON NORMALS: Normal to inspection, nondistended, normoactive bowel sounds present, Soft to palpation and non-tender PALPATION: Yes Soft to palpation Extremity: COMMON NORMALS: no joint enlargement and no pedal edema Neuro: COMMON NORMALS: patient oriented x3 and moves all extremities S ENSORIUM/ORIENTATION: Yes alert Skin: COMMON NORMALS: no rashes or lesions noted GENERAL SKIN EXAM: no rashes or lesions noted Urinary Catheter Management: Francois: Cath Placed During This Visit: yes, but has since been removed by the nurse Reason for Continuing Indwelling Catheter: Accurate Measurement of Urinary Output in Critically Ill Patients Urinary Catheter Date of Insertion: 01/30/24 Urinary Catheter Time of Insertion: 15:00 Date Urinary Catheter Removed: 01/21/24 Time Urinary Catheter Discontinued: 14:45 Data 02/08/24 08:32 02/08/24 08:32 Micro: Microbiology 02/05/24 Unknown Gram Stain - Final Pleural Fluid Anaerobic Culture - Preliminary Body Fluid Culture - Preliminary A&P Assessment and plan (1) Pleural effusion: (2) Acute and chronic respiratory failure ([id number]): (3) Lung cancer: (4) Pulmonary embolism: (5) Pulmonary hypertension: (6) Hemoptysis: (7) Physical deconditioning: (8) Muscle wasting: (9) Protein calorie malnutrition: Plan Acute on chronic hypoxic respiratory failure. Slightly better. Wheezing improved. Continue steroid, breathing treatment.Augmentin. Having diarrhea, requested C. difficile. Repeat blood counts, BMP. He did have low oxygen support. Wean down as tolerating. Reviewed vitals, CBC, BMP, reviewed body fluid culture, no organisms seen. Pleurx catheter drainage. Discussed with case management, working on arrangement for hospice in [place] so she can be close to family. Status postthoracentesis with removal of 400 mL of fluid. With some relief of symptoms, mild improvement in oxygenation, down to 80% FiO2, but again requiring up to 100% FiO2 this evening. Discussed with her insurance declining LTAC due to to high FiO2 requirement. Discussed the other option may be going to hospice route. She states that she would be proceeding with hospice, but would like to find a facility in [place] so that she can be close to family. Due to holiday today no case management is available, they should be back tomorrow to reinitiate the process. In the meantime continue oxygen support, per discussion with her for now continue IV steroid, antibiotic. Nutrition as tolerating, including protein shakes. Discussed with nursing staff. Reviewed vitals, CBC, BMP, pleural fluid studies. Pleural fluid stain and culture, pending. Pleural fluid cytology is pending. Continue holding alendronate as she cannot reliably take it and stay upright, with risk of esophagitis, reflux. Renew albuterol sulfate. Oxygen requirement too high for medical floor at current time. With recurrent pleural effusion, suspected malignancy, to COPD. She has remained afebrile, without leukocytosis. Less likely pneumonia, however, we discussed possibly resuming antibiotic. She is agreeable. Otherwise attempts today made for additional drainage via Pleurx catheter, however, only minimal output 100 cc. Effusion with loculation. She is on Eliquis, we discussed with her high risk of performing thoracentesis with risk of rupture of bullae, pneumothorax. However, otherwise his condition is also gradually dwindling. We discussed with her possibility that in case she continues to worsen and becomes too weak to breathe efficiently, or becoming confused or other complication, that she would want us to initiate comfort measures at that point to allow for her to pass peacefully. She is agreeable to such a plan in case of this development. In the meantime she does still want to try to pursue thoracentesis, holding off Eliquis, continuing on Lovenox for now. Given her overall condition, gradually weakening, and unfortunately possibly progression to worsening respiratory failure, she has been speaking with her son, we discussed with her to see if she would want to let him know that with her condition worsening she potentially may not have much time left and seeing if her son is able to come to visit her here given this could be the last chance for him to see her. She states that she will do so. Attempted to also reach out to him as well, but the automated assistant speech language pathologist/spam prevention disconnected the call. Does have worsening effusion at least moderate on imaging, with formation of loculation, as per discussion with her. Only partially accessible with Pleurx catheter. Opacification of right lung, atelectasis, pneumonia not excluded. She had previously declined antibiotics which had been discontinued. Overall appears to be less likely pneumonia, without leukocytosis, fever. Atelectasis possible or possibly part of her underlying condition with suspected metastatic malignancy. Continue sildenafil. Hold alendronate. She is feeling weaker, requested to temporarily continue Francois. Continue probiotic. With evidence of hemorrhagic pleural effusion, culture so far negative, exudative pleural effusion by lights criteria -With underlying severe lung disease, bullous emphysema, pulm hypertension -History of left lower lobe nodule, status post SBRT August 2023 ? History of bullous emphysema, pulmonary hypertension -Recurrent hemorrhagic left pleural effusion, cytology 01/26 suspicious for malignancy, cytology , rare atypical cells with prominent nucleoli highly suspicious for malignancy -CTA ipsilateral hilar/mediastinal lymphadenopathy, 3.5 cm hilar mass, appears metastatic lesion, high risk for bronchoscopy and biopsies given her significant FiO2 requirements, underlying emphysema pulm hypertension she understands this refused biopsies Continue Eliquis Pleural studies no growth, de-escalate antibiotics to Augmentin Continue sildenafil for pulmonary hypertension at home dosing CT angiogram of the chest CT/CT angio chest 05881 IMPRESSION: 1. Redemonstration of eccentric nonocclusive thrombus within the posterior aspect of the left main pulmonary artery unchanged. 2. 3.5 cm left hilar mass likely malignant in nature, unchanged. 3. Moderate ipsilateral left hilar and mediastinal lymphadenopathy likely metastatic in nature. 4. Large left pleural effusion with adjacent compressive atelectasis left lung, stable. 5. Chronic compression fractures T6 and T10 vertebral bodies unchanged. -CT shows ipsilateral hilar/mediastinal lymphadenopathy 3. 5 cm hilar mass, -01/16/2024 rare atypical cells with prominent however suspicious for malignancy -Goals of care discussion, patient is considering hospice however wants to pursue physical therapy, [place] stay versus long-term care stay for rehab before deciding ? Patient's Pleurx drain was drained on 01/25/2024, ? The issue prolonging her discharge is her overall debility, deconditioning, and her hypoxia, tachycardia and hypotension on exertion ? He has significant deconditioning, generalized weakness which is a concern for her to go home, she wants to go and get rehab at a retirement facility ? However here when she does work with physical therapy she becomes hypotensive, tachycardic, short of breath O2 saturations drop into the mid 80s requiring up to 15 L ? I had a discussion with her that there might not be an ideal situation I have already diuresed her as much as I can, we drained her Pleurx catheter, it might be that this is because of her underlying severe respiratory failure, and cardiac compensation, her severe underlying pulmonary hypertension her hemorrhagic pleural effusion, ? Overall her prognosis is poor, and I think hospice would be a reasonable option however she is not ready to make this decision, she does not want to have any chemotherapy anymore radiation therapy for her cancer, ? Chayito wants to go to rehab and get stronger, but I have tried my best to make this happen however it is proving to be difficult and possibly unlikely ? I was honest with Chayito and might be likely that she would have to go home, that this would be the only option that would be available to her, but she would have high risk of readmission, and complications, I think the only reasonable option to go home would be at home on hospice, but she is not ready for this Mildly worsening anemia: Hemoglobin down to 10.7. Recheck blood counts. Soft stool: Constipation yesterday, requested for something to help her go. Received a suppository. Diarrhea overnight, requested C. difficile. She asked for Imodium. However, per discussion with her nurse, she had no further episodes today. Hold off. Hold scheduled magnesium. Osteoporosis: Resume calcium supplementation. Continue vitamin D. Continue other home medications including levothyroxine, metoprolol physical deconditioning, protien calorie mlanutrition, muscle wasting -secondary to cancer, copd, respiratory failure -ptot -protein shakes DNR/DNI DVT prophylaxis: Eliquis, now Lovenox PUD prophylaxis: Protonix 40 mg daily Eliquis Attestations 2 Medical Necessity Statement*: Continue admission for assessment management of worsening respiratory failure, recurrent effusion, acute bronchitis. Diagnoses Pleural effusion J90 Acute and chronic respiratory failure ([id number]) J96.20 Lung cancer C34.90 Pulmonary embolism I26.99 Pulmonary hypertension I27.20 Hemoptysis R04.2 Physical deconditioning R53.81 Muscle wasting M62.50 Protein calorie malnutrition E46
[2024-02-08] MEDS: cholecalciferol (vitamin D3) 1,000 unit Tablet 2000 UNIT PO (20:58)
--- NOTE | 2024-02-08 20:59 | XRR_ITS ---
PROCEDURE INFORMATION: Exam: XR Chest Exam date and time: 02/08/2024 10:17 PM Age: 58 years old Clinical indication: Shortness of breath; Patient HX: Respiratory distress; Low o2 sat; SOB TECHNIQUE: Imaging protocol: Radiologic exam of the chest. Views: 1 view. COMPARISON: CR XR chest 1V portable [id number] 02/05/2024 3:54 PM FINDINGS: Tubes, catheters and devices: Small diameter left pleural drain is unchanged. Right upper extremity PICC line is unchanged with the tip projecting over superior vena cava. Lungs: The left chest is completely opacified, which can be secondary to any combination of a mass, consolidation, atelectasis, and pleural effusion. Stable dependent atelectasis or consolidation in the right lung base. Pleural spaces: No evidence of pneumothorax or right pleural effusion. Heart/Mediastinum: Cardiomediastinal silhouette cannot be evaluated due to complete opacification of the left chest. Bones/joints: No acute fractures. XR/XR chest 1V portable [id number] IMPRESSION: 1. The left chest is completely opacified, which can be secondary to any combination of a mass, consolidation, atelectasis, and pleural effusion. 2. Small diameter left pleural drain is unchanged. 3. Right upper extremity PICC line is unchanged with the tip projecting over superior vena cava. 4. Stable dependent atelectasis or consolidation in the right lung base.
--- NOTE | 2024-02-08 22:55 | PC.NURSE ---
(Delayed Entry) start of shift upon assessment patient was complaining of being SOB and stated that this is how she normally feels when her pleurex needs drained. Orders state it is to be drained every other day and according to documentation it was drained yesterday 02/06. Contacted hospitalist Dr Mckeon and she advised to go ahead with an additional pleurex drain. This nurse, charge nurse Yun, and Americo SHERMAN performed pleurex drain and go 50 mL of serosengenous fluid out. Pt tolerated procedure well
[2024-02-09] VITALS (13 sets, daily range): BP systolic 120–143; BP diastolic 73–100; PULSE 101–126; RESP 18–30; TEMP 36.3–36.4; O2SAT 77–89
[2024-02-09] MEDS: albuterol 2.5 mg/3 mL Neb INHALATION ×5 (01:05→20:25)
--- NOTE | 2024-02-09 01:09 | PC.NURSE ---
RT came to this nurse stating the the pt needs to be change, and she states she hasn't been changed in 24 hours. This nurse and the charge nurse entered the pts room, pt refused to be changed at this time stating that her O2 level wasn't high enough. Pt states she will call for staff when she is ready.
[2024-02-09] MEDS: levothyroxine 150 mcg Tablet PO (06:16)
[2024-02-09] MEDS: methylPREDNISolone sod succ 40 mg/mL INJ 30 MG IVP (06:17)
[2024-02-09 06:25] LABS: Basophils % 0.3 %; Hematocrit 39.4 % (36-47); Lymphocytes # 0.2 10^3/uL (0.8-4.8); Lymphocytes % 1.5 %; Mean Corpuscular HGB Conc 30.5 g/dL (30-55); Mean Corpuscular Hemoglobin 29.2 pg (27-33); Mean Corpuscular Volume 95.9 fl (85-98); Mean Platelet Volume 11.3 fL (7.4-10.4); Monocytes # 0.5 10^3/uL (0.2-0.9); Monocytes % 4.2 %; Neutrophils # 11.69 10^3/uL (1.8-7.7); Neutrophils % 91.9 %; Nucleated Red Blood Cells % 0.2 %; Platelet Count 210 10^3/cmm (157-399); Red Blood Count 4.11 10^6/uL (3.85-5.65); Red Cell Distribution Width 16.2 % (12.1-15.1); White Blood Count 12.73 10^3/uL (3.29-11.43)
[2024-02-09 06:41] LABS: Blood Urea Nitrogen 33 mg/dL (8-23); Calcium 9.4 mg/dL (8.5-10.5); Carbon Dioxide 32 mmol/L (22-29); Chloride 99 mmol/L (98-107); Creatinine Clr Calc Pharmacy 113.3515; Glomerular Filtration Rate 125.9 mL/min (90-130); Glucose 135 mg/dL (65-115); Osmolality Calculated 297 mOsm/kg (285-295); Sodium 139 mmol/L (136-145)
[2024-02-09 06:50] LABS: Anion Gap 13.2 (5-19); Potassium 5.2 mmol/L (3.5-5.1)
[2024-02-09] MEDS: budesonide 0.5 mg/2 mL Neb INHALATION ×2 (08:35→20:25)
[2024-02-09] MEDS: enoxaparin 60 mg/0.6 mL Syringe SUBCUT (10:15)
[2024-02-09] MEDS: [UNRECOGNIZED DRUG - OTHER] 500 EACH PO (10:15)
[2024-02-09] MEDS: lactobacillus 1 Tablet 1 TAB PO (10:16)
[2024-02-09] MEDS: metoprolol tartrate 25 mg Tablet 12.5 MG PO ×2 (10:16→17:14)
[2024-02-09] MEDS: midodrine 5 mg TABLET 10 MG PO ×2 (10:17→17:14)
[2024-02-09] MEDS: nystatin 100,000 unit/mL UDC 5 mL 100000 UNIT PO (10:17)
[2024-02-09] MEDS: pantoprazole DR 40 mg Tablet PO (10:18)
[2024-02-09] MEDS: methylPREDNISolone sod succ 40 mg/mL INJ IVP ×2 (14:11→19:40)
--- NOTE | 2024-02-09 19:38 | PC.NURSE ---
at approx 1800 recieved orders to drain pts pluerex drain, approx. 85 mls of cloudy yellow fluid was removed.
--- NOTE | 2024-02-09 20:32 | P.PN_ITS ---
Subjective 2 Subjective: She is feeling somewhat more short of breath today. No further diarrhea. Not in pain. Vitals/I&O/Wt Last Vital Signs Temp 97.4 F L 02/09/24 20:00 Pulse 118 H 02/09/24 20:00 Resp 22 H 02/09/24 20:00 BP 143/100 02/09/24 20:00 Pulse Ox 77 L 02/09/24 20:00 O2 Del Method Heated High Flow 02/09/24 20:00 O2 Flow Rate 50 02/09/24 19:47 FiO2 100 02/09/24 17:37 02/09/24 02/09/24 02/09/24 06:59 14:59 22:59 Intake Total 240 / 240 Output Total 250 / 700 Balance -10 / -460 Weight last 48 hrs Weight 64.524 kg Weight 63.616 kg Physical Exam 2 Const: COMMON NORMALS: patient oriented x3 and alert GENERAL APPEARANCE: c ooperative ORIENTATION/CONSCIOUSNESS: Yes awake HENMT: COMMON NORMALS: oropharynx normal Neck/C-Spine: COMMON NORMALS: no JVD Resp: COMMON NORMALS: normal respiratory effort and clear to auscultation bilaterally AUSCULTATION: clear to auscultation bilaterally, wheezes left upper and diminished lung sounds on the left in the lower lung philippe OTHER: Heated high flow cannula. Gets dyspneic with exertion. Cardio: COMMON NORMALS: no JVD, regular rhythm, S1 normal heart sound present, S2 normal heart sound present and No murmurs present (Cardio) RHYTHM: regular rhythm HEART SOUNDS: S1 normal heart sound present and S2 normal heart sound present GI: COMMON NORMALS: Normal to inspection, nondistended, normoactive bowel sounds present, Soft to palpation and non-tender PALPATION: Yes Soft to palpation Extremity: COMMON NORMALS: no joint enlargement and no pedal edema Neuro: COMMON NORMALS: patient oriented x3 and moves all extremities S ENSORIUM/ORIENTATION: Yes alert Skin: COMMON NORMALS: no rashes or lesions noted GENERAL SKIN EXAM: no rashes or lesions noted Urinary Catheter Management: Francois: Cath Placed During This Visit: yes, but has since been removed by the nurse Reason for Continuing Indwelling Catheter: Other Urinary Catheter Date of Insertion: 01/30/24 Urinary Catheter Time of Insertion: 15:00 Date Urinary Catheter Removed: 06/18/24 Time Urinary Catheter Discontinued: 14:45 Data 02/09/24 06:03 02/09/24 06:03 Micro: Microbiology 02/05/24 Unknown Gram Stain - Final Pleural Fluid Anaerobic Culture - Preliminary Body Fluid Culture - Final A&P Assessment and plan (1) Pleural effusion: (2) Acute and chronic respiratory failure ([id number]): (3) Lung cancer: (4) Pulmonary embolism: (5) Pulmonary hypertension: (6) Hemoptysis: (7) Physical deconditioning: (8) Muscle wasting: (9) Protein calorie malnutrition: Plan Acute on chronic hypoxic respiratory failure. More dyspneic. FiO2 increased to 100%, also started on nonrebreather. Continuing with supportive measures. Discussed with her son progression in condition, unfortunately likely may deteriorate further overnight. Pending arrangements for hospice care. Son will try to come out here to see her tomorrow. Depending on her mentation, will hold Lovenox for now, consideration might be given to additional thoracentesis, currently whiteout of the left lung seen on chest x-ray. If continually deteriorating or signs of struggle, as per discussion previously with her and discussion with her son start comfort measures in that situation. She wants to start hospice in [place] so that she may see her family there. Mild wheeze on the right side, we also discussed with her increasing Solu- Medrol, additional breathing treatment. Monitor for risk of hyperglycemia, hypertension, encephalopathy with steroid. Additional drainage of Pleurx catheter produced 85 mL. Reviewed vitals, CBC, BMP, reviewed body fluid culture, no organisms seen. Pleurx catheter drainage. Continue holding alendronate as she cannot reliably take it and stay upright, with risk of esophagitis, reflux. Renew albuterol sulfate. Oxygen requirement too high for medical floor at current time. With recurrent pleural effusion, suspected malignancy, to COPD. She has remained afebrile, without leukocytosis. Less likely pneumonia, however, we discussed possibly resuming antibiotic. She is agreeable. Otherwise attempts today made for additional drainage via Pleurx catheter, however, only minimal output 100 cc. Effusion with loculation. She is on Eliquis, we discussed with her high risk of performing thoracentesis with risk of rupture of bullae, pneumothorax. However, otherwise his condition is also gradually dwindling. We discussed with her possibility that in case she continues to worsen and becomes too weak to breathe efficiently, or becoming confused or other complication, that she would want us to initiate comfort measures at that point to allow for her to pass peacefully. She is agreeable to such a plan in case of this development. In the meantime she does still want to try to pursue thoracentesis, holding off Eliquis, continuing on Lovenox for now. Given her overall condition, gradually weakening, and unfortunately possibly progression to worsening respiratory failure, she has been speaking with her son, we discussed with her to see if she would want to let him know that with her condition worsening she potentially may not have much time left and seeing if her son is able to come to visit her here given this could be the last chance for him to see her. She states that she will do so. Attempted to also reach out to him as well, but the automated visitor services assistant/spam prevention disconnected the call. Does have worsening effusion at least moderate on imaging, with formation of loculation, as per discussion with her. Only partially accessible with Pleurx catheter. Opacification of right lung, atelectasis, pneumonia not excluded. She had previously declined antibiotics which had been discontinued. Overall appears to be less likely pneumonia, without leukocytosis, fever. Atelectasis possible or possibly part of her underlying condition with suspected metastatic malignancy. Continue sildenafil. Hold alendronate. She is feeling weaker, requested to temporarily continue Francois. Continue probiotic. With evidence of hemorrhagic pleural effusion, culture so far negative, exudative pleural effusion by lights criteria -With underlying severe lung disease, bullous emphysema, pulm hypertension -History of left lower lobe nodule, status post SBRT August 2023 ? History of bullous emphysema, pulmonary hypertension -Recurrent hemorrhagic left pleural effusion, cytology 01/26 suspicious for malignancy, cytology , rare atypical cells with prominent nucleoli highly suspicious for malignancy -CTA ipsilateral hilar/mediastinal lymphadenopathy, 3.5 cm hilar mass, appears metastatic lesion, high risk for bronchoscopy and biopsies given her significant FiO2 requirements, underlying emphysema pulm hypertension she understands this refused biopsies Continue Eliquis Pleural studies no growth, de-escalate antibiotics to Augmentin Continue sildenafil for pulmonary hypertension at home dosing CT angiogram of the chest CT/CT angio chest 45867 IMPRESSION: 1. Redemonstration of eccentric nonocclusive thrombus within the posterior aspect of the left main pulmonary artery unchanged. 2. 3.5 cm left hilar mass likely malignant in nature, unchanged. 3. Moderate ipsilateral left hilar and mediastinal lymphadenopathy likely metastatic in nature. 4. Large left pleural effusion with adjacent compressive atelectasis left lung, stable. 5. Chronic compression fractures T6 and T10 vertebral bodies unchanged. -CT shows ipsilateral hilar/mediastinal lymphadenopathy 3. 5 cm hilar mass, -01/16/2024 rare atypical cells with prominent however suspicious for malignancy -Goals of care discussion, patient is considering hospice however wants to pursue physical therapy, group home stay versus long-term care stay for rehab before deciding ? Patient's Pleurx drain was drained on 01/25/2024, ? The issue prolonging her discharge is her overall debility, deconditioning, and her hypoxia, tachycardia and hypotension on exertion ? He has significant deconditioning, generalized weakness which is a concern for her to go home, she wants to go and get [facility] ? However here when she does work with physical therapy she becomes hypotensive, tachycardic, short of breath O2 saturations drop into the mid 80s requiring up to 15 L ? I had a discussion with her that there might not be an ideal situation I have already diuresed her as much as I can, we drained her Pleurx catheter, it might be that this is because of her underlying severe respiratory failure, and cardiac compensation, her severe underlying pulmonary hypertension her hemorrhagic pleural effusion, ? Overall her prognosis is poor, and I think hospice would be a reasonable option however she is not ready to make this decision, she does not want to have any chemotherapy anymore radiation therapy for her cancer, ? Chayito wants to go to rehab and get stronger, but I have tried my best to make this happen however it is proving to be difficult and possibly unlikely ? I was honest with Chayito and might be likely that she would have to go home, that this would be the only option that would be available to her, but she would have high risk of readmission, and complications, I think the only reasonable option to go home would be at home on hospice, but she is not ready for this Mildly worsening anemia: Hemoglobin down to 10.7. Recheck blood counts. Soft stool: Constipation yesterday, requested for something to help her go. Received a suppository. Diarrhea overnight, requested C. difficile. She asked for Imodium. However, per discussion with her nurse, she had no further episodes today. Hold off. Hold scheduled magnesium. Osteoporosis: Resume calcium supplementation. Continue vitamin D. Continue other home medications including levothyroxine, metoprolol physical deconditioning, protien calorie mlanutrition, muscle wasting -secondary to cancer, copd, respiratory failure -ptot -protein shakes DNR/DNI DVT prophylaxis: Eliquis, now Lovenox PUD prophylaxis: Protonix 40 mg daily Attestations 2 Medical Necessity Statement*: Continue admission for assessment management of worsening respiratory failure, recurrent effusion, acute bronchitis. and High MDM includes number and complexity of problems actively addressed during encounter and described risk of complication, morbidity or mortality of management as documented Diagnoses Pleural effusion J90 Acute and chronic respiratory failure ([id number]) J96.20 Lung cancer C34.90 Pulmonary embolism I26.99 Pulmonary hypertension I27.20 Hemoptysis R04.2 Physical deconditioning R53.81 Muscle wasting M62.50 Protein calorie malnutrition E46
[2024-02-10] VITALS (7 sets, daily range): BP systolic 129–137; BP diastolic 79–91; PULSE 61–132; RESP 26–33; TEMP 35.8–36.5; O2SAT 56–80
[2024-02-10] MEDS: methylPREDNISolone sod succ 40 mg/mL INJ IVP (01:02)
[2024-02-10] MEDS: albuterol 2.5 mg/3 mL Neb INHALATION ×2 (01:35→08:12)
--- NOTE | 2024-02-10 03:38 | XRR_ITS ---
PROCEDURE INFORMATION: Exam: XR Chest Exam date and time: 02/10/2024 3:53 AM Age: 58 years old Clinical indication: Shortness of breath; Patient HX: Acute hypoxia with sp02 of 72 on high flow oxygen. History of lung cancer. TECHNIQUE: Imaging protocol: Radiologic exam of the chest. Views: 1 view. COMPARISON: CR (CHEST, ) 02/08/2024 10:17 PM FINDINGS: Tubes, catheters and devices: Left hemithorax white out again seen with left chest tube. Right PICC unchanged. Lungs: Right basilar infiltrates and effusion again seen. Left lung white out. Pleural spaces: No pneumothorax. Heart/Mediastinum: The heart is large. Bones/joints: Unremarkable. XR/XR chest 1V portable [id number] IMPRESSION: Unimproved exam from 2 days ago.
[2024-02-10] MEDS: morphine 4 mg/mL SDV 1 mL 1 MG IVP ×2 (04:16→04:30)
[2024-02-10 05:25] LABS: Basophils # 0.1 10^3/uL (0.0-0.1); Basophils % 0.4 %; Hematocrit 34.8 % (36-47); Lymphocytes # 0.2 10^3/uL (0.8-4.8); Lymphocytes % 1.6 %; Mean Corpuscular Hemoglobin 28.9 pg (27-33); Mean Corpuscular Volume 99.4 fl (85-98); Mean Platelet Volume 10.8 fL (7.4-10.4); Monocytes # 0.5 10^3/uL (0.2-0.9); Monocytes % 3.3 %; Neutrophils # 12.67 10^3/uL (1.8-7.7); Neutrophils % 90.2 %; Nucleated Red Blood Cells # 0.1 /100WBC; Nucleated Red Blood Cells % 0.8 %; Platelet Count 185 10^3/cmm (157-399); Red Cell Distribution Width 16.1 % (12.1-15.1); White Blood Count 14.05 10^3/uL (3.29-11.43)
[2024-02-10 05:41] LABS: Anion Gap 12.3 (5-19); Blood Urea Nitrogen 46 mg/dL (8-23); Calcium 9.3 mg/dL (8.5-10.5); Carbon Dioxide 32 mmol/L (22-29); Chloride 100 mmol/L (98-107); Creatinine Clr Calc Pharmacy 90.3323; Glucose 169 mg/dL (65-115); Osmolality Calculated 304 mOsm/kg (285-295); Potassium 5.3 mmol/L (3.5-5.1); Sodium 139 mmol/L (136-145)
[2024-02-10] MEDS: budesonide 0.5 mg/2 mL Neb INHALATION (08:12)
--- NOTE | 2024-02-10 08:20 | PC.NURSE ---
I was asked to assist in patient's room d/t loss of pulse and agonal breathing. Nikki Spencer RN and Shantelle Danielson RN were present at bedside with Beny Zamora CNA and RT Soha. Patient was notably agonal breathing and Nikki Spencer states she could not auscultate an apical pulse. I observed the tele monitor and patient was noted to be in sinus brandon at the time. Upon auscultation, occasional, soft beats were heard but not regular. Soha was able to feel a light, thready pulse at radial. I called and spoke with Dr. Oropeza after reviewing the chart and realizing patient had no active comfort care medications. I received a verbal order for Morphine 2 mg every 4 hours PRN and Ativan 1 mg every 4 hours PRN for air hunger and pain, however while entering these in the EMR, Nikki Spencer stated that she no longer was agonal breathing. Upon assessment, no pulse could be palpated or auscultated, and patient was no longer having agonal breathing. The monitor was now showing PEA so I called back to Dr. Oropeza and informed him of this. TOD called at 0833 by myself and Nikki Spencer RN. I was leaving the room to call and speak with patient's son, however he had just arrived and was walking down the edwards toward patient's room. We were able to inform him in person and he and his spouse were able to stay with patient for a while. Both Chaplains present for any needs.
--- NOTE | 2024-02-10 09:28 | PC.NURSE ---
Addendum entered by Amada Danielson RN 02/10/24 11:44: Amending my note to change time to 0833 time of . Addendum entered by Myesha Spicer RN 02/10/24 09:57: Time of 0833 called by Nikki Spicer RN and Nikki Spencer RN. Original Note: Patient at 0733. Patient's son arrived right after time called.
--- NOTE | 2024-02-10 09:30 | PC.NURSE ---
[facility] notified of patient passing. Full release from [facility]. Awaiting [facility]aving Site decision. Charge and manager wind notified of updates to referral. Ref #[id number]
--- NOTE | 2024-02-10 10:10 | PM.DDS ---
Discharge Providers DDS Date of Admission: 01/15/24 18:29 Date Summary Completed: 02/10/24 Attending Provider at Admission: Juan Oropeza MD Time of : 07:33 Attending Provider at Discharge: Juan Oropeza MD Consults: Pulmonology: Dr. Otoole Primary Care Provider: Bam Calvillo MD DS Diagnoses Hospital Diagnoses (1) Pleural effusion: (2) Acute and chronic respiratory failure ([id number]): (3) Lung cancer: Permanent Problem Comments: presumed diagnosis at this point (4) Pulmonary embolism: (5) Pulmonary hypertension: (6) Hemoptysis: (7) Physical deconditioning: (8) Muscle wasting: (9) Protein calorie malnutrition: Reason for Visit Reason for Visit SOB Summary Date and Time of Date of : 02/10/24 Time of : 07:33 Summary Summary: Chayito Small is a 58 year old female with pulmonary hypertension and COPD. She was recently admitted to hospital on 01/06/2024-for worsening shortness of breath-requiring 7 to 8 L supplemental oxygen at rest.. CTA 01/05/2024 showed large pulmonary embolism along posterior wall of left main pulmonary artery extending into left lower lobe with evidence of right heart strain with RV to LV ratio 1.3. There was large left-sided pleural effusion with complete consolidation of left lower lobe. There is 4.7 x 3 cm mass in the left hilum concerning for neoplasm. She underwent thoracentesis on 01/07/2024-drained 1.5 L hemorrhagic pleural fluid. By lights criteria fluid is exudative. Cytology cellblock-reported specimen concerning for malignancy however insufficient cellular material present. She received Lovenox for PE and transitioned to Eliquis at discharge. She was previously diagnosed with PET avid LLL nodule in 04/2023- she was recommended to start radiation due to high clinical suspicion for ca as she is deemed a high risk for obtaining biopsies due to underlying significant bullous emphysema as well as pulmonary hypertension. She initially was in denial and refused radiation. A repeat CT chest on 07/23/23: : Interval enlargement of a nodule at the pleural surface of the left lower lobe laterally currently measuring 3.4 x 2.7 cm compared with 2.7 x 2.3 cm a similar level on the prior study.she received SBRT in aug-sep 2023 and follows up with radiation oncology. She returned to the ER 01/15/2024 with increasing shortness of breath. She was saturating 70% on her regular 5lpm supplemental home 02. ABg with hypoxia with p02 53 on 12lpm NRB. She needed to be placed on bipap upon arrival. She was admitted for acute on chronic hypoxic respiratory failure and chronic hypercapnic failure. Chest x-ray showed worsening left pleural effusion. She was admitted to ICU, started on scheduled nebulizations and steroids. Held her Eliquis, transition to heparin, started on Zosyn. She underwent thoracentesis on 01/15/2023-drained 1200 cc hemorrhagic fluid. Resent for pleural fluid cytology. Patient continues to have respiratory distress-repeat CTA 01/18/2024-showed redemonstration of eccentric nonocclusive thrombus within the posterior aspect of left main pulmonary artery. 3.5 cm left hilar mass likely malignant in nature. Moderate ipsilateral left hilar and mediastinal lymphadenopathy likely metastatic in nature. Large left pleural effusion with adjacent compressive atelectasis left lung. Pulmonary were consulted for recurrent left-sided pleural effusion. She has past history of severe emphysema, pulmonary hypertension, on sildenafil, reviewed status, CHF, CKD, JOSE, prior consideration of lung transplant, previously declined/was not a candidate due to lack of social support, in March 2023 with finding of pleural-based mass in the left lower lobe suspicious for neoplasm on CT, new compression fractures of T6, T10, possible pathologic compression, prominent lymph nodes.? PET/CT with left lower lobe avid nodule concerning for malignancy.? High risk of complications to try for biopsy with severe edema, blebs.? Referred for SBRT but initially declined, wanted to wait and reassess.? Repeat CT in July showed interval enlargement of the nodule at the pleural surface.? At that point received SBRT.? Came into the hospital with worsening hypoxia, tachycardia, dyspnea, with recurrent pleural effusion, found to have a large PE.? Started on anticoagulation, was not found to be candidate for transfer.? Initially refused antibiotics or steroids.? 1500 cc drained during prior hospitalization, then returned with similar symptoms.? Additional 1200 drained, cytology suspicious for malignancy.? Please see discharge notes for details.? Suspicion for metastatic colon cancer, metastatic pleural effusion, although it seems she was not entirely accepting the diagnosis.? Not a surgical candidate.? Not wanting chemotherapy or radiation.? But has not felt ready for hospice.? Pleurx catheter was placed.? She wanted to discharge to rehabilitation, could not be accepted to intermediate due to significant desaturation with exertion down to 80s requiring 15 L, initially did not want LTAC, subsequently agreed to LTAC, but at that point requiring 80-90% FiO2 on heated high flow.? Insurance declined LTAC.? She has since agreed for hospice arrangements at a facility. While embedded case manager working on the same, she in the meantime her condition has declined further, she did undergo successful thoracentesis with IR on Saturday and felt better, but now oxygenation is worse again, and with recurrence of large pleural effusion.? I notified her son of return for the worse, he will try to come to see her here in case she does not make it to hospice in [place]. Patient continued to have worsening respiratory failure requiring maximum heated high flow unfortunately without much improvement. Eventually patient on 02/09 awaiting comfortable situation on 7:33 AM. Family was contacted. Additional Data Confirmation of as documented by pronouncing clinician: no pulse, no respirations and no heart sounds Family: contacted Additional persons at bedside: nursing staff Attending/PCP notified?: I am attending Was code activated?: No Autopsy requested?: No Advance directives?: Yes Hospice patient?: No Discharge Plan Discharge Patient Disposition: Condition: Stable Probable Cause of Probable cause of : Respiratory failure DS Attestations Time Spent in /Discharge Care*: greater than 30 min Quality - AMI: AMI present?: No Quality - Stroke: CVA present?: No Quality - VTE: VTE present?: Yes Deep Vein Thrombosis/Pulmonary Embolism Present on Admission: Yes Coding Level of Care Code Acute Code for Chg Fwd Diagnoses Pleural effusion J90 Acute and chronic respiratory failure (xyjyu-[id number]) J96.20 Lung cancer C34.90 Pulmonary embolism I26.99 Pulmonary hypertension I27.20 Hemoptysis R04.2 Physical deconditioning R53.81 Muscle wasting M62.50 Protein calorie malnutrition E46
== END 2024-02-10 12:30 | disposition expired | DRG 175 ==
LOC: ER 17:36 → ER IP 19:59 → ICU 20:55 → MEDSURG 01-18 11:05 → ICU 02-02 11:54 → MEDSURG 02-07 18:39
PROVIDERS: Family Medicine; Internal Medicine; Student in an Organized Health Care Education/Training Program; Admitting Provider Student in an Organized Health Care Education/Training Program; Emergency Provider Emergency Medicine; PCP Family Medicine; Visit Provider Student in an Organized Health Care Education/Training Program
DX: I26.99 Other pulmonary embolism without acute cor pulmonale (principal); J96.21 Acute and chronic respiratory failure with hypoxia; J96.22 Acute and chronic respiratory failure with hypercapnia; C34.90 Malignant neoplasm of unspecified part of unspecified bronchus or lung; C77.1 Secondary and unspecified malignant neoplasm of intrathoracic lymph nodes; J90 Pleural effusion, not elsewhere classified; E46 Unspecified protein-calorie malnutrition; J43.9 Emphysema, unspecified; Z99.81 Dependence on supplemental oxygen; I27.20 Pulmonary hypertension, unspecified; Z86.711 Personal history of pulmonary embolism; Z86.16 Personal history of COVID-19; Z87.01 Personal history of pneumonia (recurrent); M05.9 Rheumatoid arthritis with rheumatoid factor, unspecified; J84.10 Pulmonary fibrosis, unspecified; Z85.41 Personal history of malignant neoplasm of cervix uteri; E03.9 Hypothyroidism, unspecified; Z87.891 Personal history of nicotine dependence; Z66 Do not resuscitate; Z68.21 Body mass index [BMI] 21.0-21.9, adult; R00.0 Tachycardia, unspecified; I95.9 Hypotension, unspecified; K59.00 Constipation, unspecified; J20.9 Acute bronchitis, unspecified
CPT/HCPCS: 32555; 36415; 36573; 36591; 36592; 36600; 51702; 51798; 71045; 71275; 80048; 80051; 80053; 80061; 80202; 80503; 81001; 82042; 82150; 82330; 82570; 82607; 82746; 82805; 82945; 83036; 83540; 83550; 83605; 83615; 83735; 83880; 83986; 84100; 84145; 84157; 84443; 84478; 84484; 85014; 85025; 85610; 85730; 86140; 86403; 87015; 87040; 87070; 87075; 87086; 87102; 87116; 87205; 87206; 87449; 87493; 87641; 87801; 88112; 88305; 89050; 93005; 94640; 94660; 96365; 96366; 96372; 96375; 96376; 97110; 97162; 97165; 97530; 97535; 99291; C1751; C9113; J0456; J1644; J1650; J1940; J2060; J2270; J2543; J2919; J3370; J3480; J7040; J7050; J7512; J7613; J7626; Q9967